=== PATIENT | female | born 1970 | race Caucasian/White ===

== ENCOUNTER 2016-09-30 13:26 | Emergency (ER) | payer MEDICARE, OTHER ==
[~2016-09-30] VITALS: Ht 160 cm; Wt 67.5 kg
[~2016-09-30 13:26] MED LIST: AMLO-145 PO; CARV25TA97 PO; CNC30T PO; FOSR500 PO; ISOS30TA5 PO; LORA0.5T PO; LOSA50TA6 PO; MUPI22OI29 TOP; PANT40TA4 PO; SEVE800T7 PO
[2016-09-30 13:46] VITALS: Ht 160 cm; Wt 67.5 kg
[2016-09-30] MEDS ORDERED: DIAZEPAM 5 MG TAB PO ONE (15:00)
--- NOTE | 2016-09-30 15:32 | RADRPT ---
PROCEDURE: Renal US. CLINICAL INDICATION: Renal dysfunction. Patient on hemodialysis. Flank pain. TECHNIQUE: Multiple sonographic images of the kidneys and urinary bladder were obtained. The imag es were reviewed on a PACS workstation. COMPARISON: No prior studies are available for comparison. FINDINGS: The right kidney measures 6.2 cm. The left kidney measures 7.8 cm. There is a multiloculated cystic lesion in the right kidney inferiorly measuring 2.0 x 2.2 x 3.1 cm, and a cystic lesion inferiorly in the left kidney measuring 1.2 x 0.9 x 1.4 cm. There is no other renal mass. There is no hydronephrosis. There is no renal calculus. Both kidneys are hyperechoic consistent with medical renal disease. There is bilateral renal atroph y with thinning of the renal parenchyma. The perirenal regions are normal with no fluid collection or mass. The urinary bladder is unremarkable. IMPRESSION: 1. Bilateral small hyperechoic kidneys consistent with medical renal disease. 2. Benign bilateral renal cysts. 3. No hydronephrosis. 4. Otherwise normal renal ultrasound. RPTAT: QQ .Manoj Otoole MD, MD Date Time Electronically viewed and signed by .Manoj Otoole MD, MD on 09/30/2016 15:32 .R/
--- NOTE | 2016-09-30 15:49 | RADRPT ---
PROCEDURE: XR Lumbar Spine. CLINICAL INDICATION: Back pain. TECHNIQUE: Five views. AP, lateral, obliques, and cone-down lateral view of the lumbar spine were obtained. COMPARISON: No prior studies are available for comparison. FINDINGS: There is normal stature and alignment of the vertebrae. There is no fracture. There is no lytic or blastic lesion. The disk height is normal. There is no spondylolysis. There is a surgical clip in the left upper quadrant of the abdomen. IMPRESSION: 1. Prior left upper quadrant abdomen surgery. 2. Otherwise unremarkable images of the lumbar spine. RPTAT: QQ .Manoj Otoole MD, MD Date Time Electronically viewed and signed by .Manoj Otoole MD, MD on 09/30/2016 15:49 .R/
[2016-09-30] MEDS ORDERED: CYCL-319 PO (15:58)
--- NOTE | 2016-09-30 16:10 | ERD ---
ER Documentation Chief Complaint Date/Time DATE: 09/30/16 TIME: 16:06 Chief Complaint Pt with lower back pain X 2 weeks, worse today. Pt on HD HPI This is a 46-year-old female with past medical history of lupus, hypertension on hemodialysis on Wednesday, Wednesday, Wednesday presenting to the emergency department complaining with moderate to severe lower back pain for the past 2 weeks. Patient states that she has been evaluated by her primary care physician at [facility], who has done x-rays and show that she had arthritis. Patient presents today asking for another x-ray since she says that back pain has worsened and she wants a second opinion. Patient has been given [place], Vicodin Motrin and she states that none of them helped her. Patient states the pain is increased when she is sitting down. Patient's last hemodialysis appointment was today and she states the doctor said it was everything was normal. Denies any saddle anesthesia or bowel incontinence (patient already does not produce urine) ROS All systems reviewed and are negative except as per history of present illness. 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 with wo, #1 TUB Prov:WHITNEY CARDOSO MD 03/15/16 Carvedilol* (Coreg*) 25 Mg Tab, 25 MG PO BID for 30 Days, TAB Prov:REMI SIMPSON MD 12/26/15 Reported Medications Isosorbide Mononitrate* (Isosorbide Mononitrate*) 30 Mg Tab.er.24h, 30 MG PO DAILY, TAB 03/11/16 Sevelamer Carbonate* (Renvela*) 800 Mg Tablet, 0.8 GM PO WITH MEALS, TAB 02/05/16 Pantoprazole* (Pantoprazole*) 40 Mg Tablet.dr, 40 MG PO DAILY, TAB 12/22/15 Lorazepam* (Lorazepam*) 0.5 Mg Tablet, 0.5 MG PO Q8 Y for ANXIETY, TAB 12/17/15 Lanthanum Carbonate* (Fosrenol*) 500 Mg Tab.chew, 500 MG PO TID, TAB.CHEW WITH MEALS 01/11/15 Amlodipine Besylate* (Amlodipine Besylate*) 5 Mg Tablet, 5 MG PO BID, TAB 01/11/15 Cinacalcet* (Sensipar*) 30 Mg Tab, 30 MG PO DAILY, TAB 01/11/15 Losartan Potassium* (Losartan Potassium*) 50 Mg Tablet, 50 MG PO DAILY, TAB 09/26/14 Allergies Allergies: Coded Allergies: valacyclovir (Verified Allergy, Mild, 04/27/16) per pt she has nightmares and hallucinations PMhx/Soc Anesthesia Reaction: No Hx Neurological Disorder: No Hx Respiratory Disorders: No Hx Cardiac Disorders: Yes (HTN) Hx Psychiatric Problems: No Hx Miscellaneous Medical Probl: Yes (lupus, esrd wiwth dialysis (MWF)) Hx Alcohol Use: No Hx Substance Use: No Hx Tobacco Use: No Smoking Status: Never smoker Physical Exam Vitals Vital Signs Date Time Temp Pulse Resp B/P Pulse Ox O2 Delivery O2 Flow Rate FiO2 09/30/16 13:46 97.4 94 18 132/88 100 Physical Exam GENERAL: WD/WN, in no apparent distress, non-toxic appearing HENT: NC/AT EYES: Conjunctiva normal NECK: Supple PULM: Normal labored breathing CV: Good capillary refill GI: Non-distended, no guarding BACK: no deformities noted, normal spinal curvature, TTP on lumbar region, non- tender on spine midline EXT: No clubbing, cyanosis, or edema NEURO: Moves on all fours, sensation intact, normal gait SKIN: intact PSYCH: Normal mood Results 24 hrs Current Medications Medications (Trade) Dose Ordered Sig/Halie Route PRN Reason Start Time Stop Time Status Last Admin Dose Admin Diazepam (Valium) 10 mg ONCE ONCE PO 09/30/16 15:00 09/30/16 15:01 DC 09/30/16 14:53 Procedures/MDM This is a 46-year-old female with past medical history of lupus, hypertension on hemodialysis on Wednesday, Wednesday, Wednesday presenting to the emergency department complaining with worsening moderate to severe lower back pain for the past 2 weeks. Patient states that she has been evaluated by her primary care physician at [facility], who has done x-rays and show that she had arthritis. Patient presents today asking for another x-ray since she says that back pain has worsened and she wants a second opinion. Patient's last hemodialysis appointment was today and she states the doctor said it was everything was normal. This is likely a lumbar back strain with muscle spasm, low suspicion for spinal abscess, vertebral fracture, cauda equina syndrome, spinal stenosis due to physical examination. Lumbar XRAY: 1. Prior left upper quadrant abdomen surgery. 2. Otherwise unremarkable images of the lumbar spine. Renal US: 1. Bilateral small hyperechoic kidneys consistent with medical renal disease. 2. Benign bilateral renal cysts. 3. No hydronephrosis. 4. Otherwise normal renal ultrasound. Patient is neurovascularly intact. Prescriptions Flexeril was given to patient, discussed to return to the ED if not improving as expected or follow-up with a primary care physician. Patient understood and agreed with this plan. Departure Diagnosis: Primary Impression: Back pain Condition: Stable Patient Instructions: Causes of Lumbar (Low Back) Pain, Back Pain (Acute Or Chronic), Muscle Spasm Additional Instructions: FOLLOW UP WITH YOUR PRIMARY CARE PHYSICIAN TOMORROW.Return to this facility if you are not improving as expected. Take all medicines as directed. Return to this facility if you are not improving as expected. SPECIALIST: YOU HAVE A MEDICAL CONDITION WHICH REQUIRES YOU TO SEE A SPECIALIST WITHIN THE NEXT 1-2 DAYS. PLEASE FOLLOW UP WITH YOUR PRIMARY PHYSICIAN FOR REFFERAL.IF YOU DO NOT HAVE A PRIMARY CARE PHYSICIAN AND/OR YOU CAN NOT AFFORD TO SEE A PHYSICIAN THE FOLLOWING RESOURCES HAVE BEEN SUPPLIED TO YOU. IT IS YOUR RESPONSIBILITY TO BE SEEN BY THE SPECIALIST MARS CARTER PA-C Sep 30, 2016 16:10
== END 2016-09-30 16:06 | disposition home or self-care (01) ==
LOC: FTE 13:26
DX: M54.5 Low back pain (principal); I10 Essential (primary) hypertension
CPT/HCPCS: 72110; 76775

== ENCOUNTER 2016-10-06 15:03 | Observation (INO) | payer OTHER, MEDICARE ==
[~2016-10-06] VITALS: Ht 162.6 cm; Wt 70.0 kg
[~2016-10-06 15:03] MED LIST changes: +CYCL-319 PO
[2016-10-06 17:58] VITALS: TEMP 98.6
[2016-10-06] MEDS ORDERED: morphine 4 MG/ML VIAL IV STA (18:06)
[2016-10-06] MEDS ORDERED: ONDANSETRON 4 MG INJ IV STA (18:06)
[2016-10-06] MEDS ORDERED: FOLI-49 PO (18:09)
[2016-10-06] MEDS ORDERED: DOCU100C26 PO (18:09)
[2016-10-06] MEDS ORDERED: HYDR-3672 PO (18:09)
[2016-10-06] MEDS ORDERED: HYDR-842 PO (18:10)
[2016-10-06] MEDS ORDERED: BEN50 PO (18:11)
--- NOTE | 2016-10-06 18:11 | ERD ---
ER Documentation Chief Complaint Date/Time DATE: 10/06/16 TIME: 17:55 Chief Complaint hypertension and headache HPI 45-year-old female with a history of SLE, hypertension, end-stage renal disease on dialysis M/W/F, ischemic cardiomyopathy with ejection fraction 25%, status post AICD placement, poorly controlled hypertension, dyslipidemia and coronary artery disease referred to the ED for hypertension. Over the last several days despite compliance with the medication her blood pressure has been significantly elevated at home. She complains of mild, generalized, gradual onset headache but denies chest pain, palpitations or shortness of breath. No abdominal pain, nausea or vomiting. Denies leg pain or swelling. No URI symptoms or cough. No fevers or chills. Ongoing, nonradiating, mild to moderate, diffuse, sharp and crampy lower back pain for which she was evaluated in the ED September 30. On that day her blood pressure was 132/88. ROS All systems reviewed and are negative except as per history of present illness. 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 with wo, #1 TUB Prov:WHITNEY CARDOSO MD 03/15/16 Carvedilol* (Coreg*) 25 Mg Tab, 25 MG PO BID for 30 Days, TAB Prov:REMI SIMPSON MD 12/26/15 Reported Medications Sevelamer Carbonate* (Renvela*) 800 Mg Tablet, 0.8 GM PO WITH MEALS, TAB 2 TABS TID WITH MEALS 10/07/16 Amlodipine Besylate* (Norvasc*) 5 Mg Tablet, 5 MG PO BID, TAB 10/06/16 Cinacalcet* (Sensipar*) 60 Mg Tablet, 60 MG PO DAILY, TAB 10/06/16 Diphenhydramine Hcl* (Benadryl*) 50 Mg Cap, 50 MG PO Q12 Y for ITCHING, CAP 10/06/16 Docusate Sodium* (Doc-Q-Lace*) 100 Mg Capsule, 100 MG PO BID Y for CONSTIPATION , CAP 10/06/16 Folic Acid* (Folic Acid*) 1 Mg Tablet, 1 MG PO DAILY, TAB 10/06/16 Hydralazine Hcl* (Apresoline*) 50 Mg Tab, 50 MG PO DAILY, #30 TAB 10/06/16 Pantoprazole* (Pantoprazole*) 40 Mg Tablet.dr, 40 MG PO DAILY, TAB 12/22/15 Lanthanum Carbonate* (Fosrenol*) 500 Mg Tab.chew, 500 MG PO TID, TAB.CHEW WITH MEALS 01/11/15 Losartan Potassium* (Losartan Potassium*) 50 Mg Tablet, 50 MG PO DAILY, TAB 09/26/14 Discontinued Reported Medications Hydroxyzine Hcl* (Atarax*) 25 Mg Tab, 25 MG PO DAILY Y for ITCHING, TAB 10/06/16 Isosorbide Mononitrate* (Isosorbide Mononitrate*) 30 Mg Tab.er.24h, 30 MG PO DAILY, TAB 03/11/16 Lorazepam* (Lorazepam*) 0.5 Mg Tablet, 0.5 MG PO Q8 Y for ANXIETY, TAB 12/17/15 Amlodipine Besylate* (Amlodipine Besylate*) 5 Mg Tablet, 5 MG PO BID, TAB 01/11/15 Cinacalcet* (Sensipar*) 30 Mg Tab, 30 MG PO DAILY, TAB 01/11/15 Allergies Allergies: Coded Allergies: valacyclovir (Verified Allergy, Mild, 10/06/16) per pt she has nightmares and hallucinations PMhx/Soc Reviewed in chart. As per HPI. Anesthesia Reaction: No Hx Neurological Disorder: No Hx Respiratory Disorders: No Hx Cardiac Disorders: Yes (HTN) Hx Psychiatric Problems: No Hx Miscellaneous Medical Probl: Yes (lupus, esrd wiwth dialysis (MWF)) Hx Alcohol Use: No Hx Substance Use: No Hx Tobacco Use: No FmHx Mother: Diabetes. No family history of stroke, cancer or sudden cardiac . Physical Exam Vitals Vital Signs Date Time Temp Pulse Resp B/P Pulse Ox O2 Delivery O2 Flow Rate FiO2 10/06/16 17:58 98.6 81 22 205/101 98 Room Air 10/06/16 17:17 232/112 10/06/16 15:23 97.9 82 18 212/110 98 Physical Exam Const: Alert, mild distress due to pain. Head: Atraumatic Eyes: Normal Conjunctiva ENT: Normal External Ears, Nose and Mouth. Neck: Full range of motion. Nontender. No JVD. Resp: Clear to auscultation bilaterally Cardio: Regular rate and rhythm, no murmurs Abd: Soft, non tender, non distended. Normal bowel sounds Skin: No petechiae or rashes Back: Mild, diffuse, lumbar tenderness. No bony point tenderness, step-off or deformity. No paraspinal muscle spasm. Negative straight leg raise/cross leg raise. Dorsiflexion of the great toes normal bilaterally. Ext: No cyanosis, or edema. AV shunt left upper extremity with palpable thrill. Neur: Awake and alert. Cranial nerves II through XII are grossly intact. Motor and sensory are equal bilaterally. No focal deficit observed. Psych: Normal Mood and Affect Result Diagram: 10/06/16182910/06/161829 Results 24 hrs Laboratory Tests Test 10/06/16 18:30 Anion Gap 23 Basophils # Pending Basophils % Pending Blood Morphology Comment Blood Urea Nitrogen 85mg/dl Calcium Level 9.7mg/dl Carbon Dioxide Level 28mmol/L Chloride Level 94mmol/L Creatinine 11.22mg/dl Eosinophils # Pending Eosinophils % Pending Glucose Level 107mg/dl Hematocrit 34.6% Hemoglobin 11.6g/dl Lymphocytes # Pending Lymphocytes % Pending Mean Corpuscular Hemoglobin 36.0pg Mean Corpuscular Hemoglobin Concent 33.6g/dl Mean Corpuscular Volume 107.0fl Mean Platelet Volume 9.2fl Monocytes # Pending Monocytes % Pending Neutrophils # Pending Neutrophils % Pending Nucleated Red Blood Cells # Pending Nucleated Red Blood Cells % Pending Platelet Count 29494^3/UL Potassium Level 4.7mmol/L Red Blood Count 3.2410^6/ul Red Cell Distribution Width 14.0% Sodium Level 140mmol/L Troponin I 0.088ng/ml White Blood Count 5.910^3/ul Current Medications Medications (Trade) Dose Ordered Sig/Halie Route PRN Reason Start Time Stop Time Status Last Admin Dose Admin Morphine Sulfate (morphine) 4 mg ONCE STAT IV 10/06/16 18:06 10/06/16 18:07 DC 10/06/16 18:38 Ondansetron HCl (Zofran Inj) 4 mg ONCE STAT IV 10/06/16 18:06 10/06/16 18:07 DC 10/06/16 18:37 Diphenhydramine HCl (Benadryl) 25 mg ONCE ONCE IV 10/06/16 19:30 10/06/16 19:31 RHYTHM STRIP INTERPRETATION: Time: 18:05. Indication: Sinus rhythm. Ventricular rate 80. No ectopy. Indication: Hypertension. EKG: TIME: 17: 55. Sinus rhythm. Ventricular rate 81. LVH. T-wave inversions in lead I and aVL. No acute ST segment elevation or depression. No ectopy. EP Interpretation: Abnormal EKG. IMAGING: [ ] Procedures/MDM DOCUMENTS REVIEWED: ED nurse, prior ED, prior records ED COURSE: Morphine 4 mg/Zofran 4 mg IV. REEXAMINATION/REEVALUATION: Time:BP 196/104. HR:86. Pain resolved but complaining of mild, generalized pruritus. Benadryl 25 mg IV given. Ongoing hypertension treated with labetalol 20 mg IV. MEDICAL DECISION MAKIN-year-old female with a history of SLE, hypertension , end-stage renal disease on dialysis M/W/F, ischemic cardiomyopathy with ejection fraction 25%, status post AICD placement, poorly controlled hypertension, dyslipidemia and coronary artery disease referred to the ED for hypertension. She is having ongoing lower back pain resolved with morphine 4 mg but had some mild pruritus treated with Benadryl. Blood pressure was still 196/104 on labetalol 20 mg IV given. Admit to telemetry. Counseled patient regarding diagnostic workup, diagnosis and need for followup. Understands to return to ED if symptoms recur, worsen or any other concerns. Departure Diagnosis: Primary Impression: Hypertensive urgency Additional Impressions: ESRD (end stage renal disease) on dialysis SLE (systemic lupus erythematosus) Systemic lupus erythematosus type: unspecified Systemic lupus erythematosus organ involvement: unspecified Qualified Code: M32.9 - Systemic lupus erythematosus, unspecified SLE type, unspecified organ involvement status Condition: Serious MORTEZA JUDGE MD Oct 06, 2016 18:11
--- NOTE | 2016-10-06 18:23 | RADRPT ---
PROCEDURE: XR Chest. CLINICAL INDICATION: Hypertension. Shortness of breath. TECHNIQUE: Single frontal view. COMPARISON: 04/27/2016. FINDINGS: The lungs are clear. There is a right-sided single lead pacemaker/internal cardiac defibrillator. The heart is enlarged. There is no pleural effusion or pneumothorax. Surgical clips are present in the soft tissues of the left upper extremity medially. IMPRESSION: 1. Pacemaker/internal cardiac defibrillator. 2. Cardiomegaly. 3. Clear lungs. 4. Surgical clips in the left upper extremity soft tissues medially. RPTAT: QQ .Manoj Otoole MD, MD Date Time Electronically viewed and signed by .Manoj Otoole MD, on 10/06/2016 18:23 .R/
[2016-10-06 18:37] LABS: BASOPHIL # 0.1 10^3/ul (0.0-0.1); BASOPHILS % 0.9 % (0.0-2.0); EOSINOPHILS # 0.2 10^3/ul (0.0-0.5); EOSINOPHILS % 3.2 % (0.0-7.0); HEMATOCRIT 34.6 % (37.0-47.0); HEMOGLOBIN 11.6 g/dl (12.0-16.0); LYMPHOCYTES # 1.7 10^3/ul (0.8-2.9); LYMPHOCYTES % 28.9 % (15.0-51.0); MEAN CORPUSCULAR HGB CONC 33.6 g/dl (32.0-37.0); MEAN PLATELET VOLUME 9.2 fl (7.4-10.4); MONOCYTE # 0.8 10^3/ul (0.3-0.9); MONOCYTES % 13.4 % (0.0-11.0); NEUTROPHIL # 3.2 10^3/ul (1.6-7.5); NEUTROPHILS % 53.6 % (39.0-77.0); PLATELET COUNT 172 10^3/UL (140-440); RED BLOOD COUNT 3.24 10^6/ul (4.20-5.40); UNCORRECTED WBC 5.9 10^3/ul (4.8-10.8); WHITE BLOOD COUNT 5.9 10^3/ul (4.8-10.8)
[2016-10-06 18:41] LABS: CONDITION 1; LH ANALYZER COMMENTS 1; SUSPECT 1
[2016-10-06 18:46] LABS: POTASSIUM 4.7 mmol/L (3.5-5.1)
[2016-10-06 18:48] LABS: CREATININE 11.22 mg/dl (0.44-1.00)
[2016-10-06 18:49] LABS: CALCIUM 9.7 mg/dl (8.4-10.2)
[2016-10-06 19:01] LABS: TROPONIN-I 0.088 ng/ml (0.00-0.12)
[2016-10-06] MEDS ORDERED: DIPHENHYDRAMINE 50 MG INJ IV ONE (19:30)
[2016-10-06] MEDS ORDERED: LABETALOL HCL 20MG INJ IV ONE (19:30)
[2016-10-06] MEDS ORDERED: NITROGLYCERIN 2% 1 GM OINT PKT TD STA (20:11)
[2016-10-06] MEDS ORDERED: ONDANSETRON 4 MG INJ IV PRN ×2 (20:30→23:00)
[2016-10-06] MEDS ORDERED: ACETAMINOPHEN 325 MG TAB PO PRN ×2 (20:30→23:00)
[2016-10-06] MEDS ORDERED: CLONIDINE 0.2 MG/24 HR PATCH TRANSDERM ONE (20:30)
[2016-10-06] MEDS ORDERED: CINA60TA PO (20:32)
[2016-10-06] MEDS ORDERED: AMLO5TAB4 PO (20:34)
[2016-10-06] MEDS ORDERED: DIPHENHYDRAMINE 50 MG CAP PO PRN (23:00)
[2016-10-06] MEDS ORDERED: BISACODYL (EC) 5 MG TAB PO PRN (23:00)
[2016-10-06] MEDS ORDERED: NACL 0.9% 3 ML SYG IV SCH (23:00)
[2016-10-06] MEDS ORDERED: DOCUSATE SODIUM 100 MG CAP PO PRN ×2 (23:00)
[2016-10-06] MEDS ORDERED: hydrALAzine 20 MG INJ IV PRN (23:00)
[2016-10-06 23:09] VITALS: PULSE 81
[2016-10-06 23:31] VITALS: BP 162/86; RESP 16
[2016-10-06 23:45] VITALS: Ht 162.6 cm; Wt 70.0 kg
[2016-10-07] VITALS (19 sets, daily range): BP systolic 140–181; BP diastolic 73–98; PULSE 69–96; RESP 16–20
[2016-10-07] MEDS: PANTOPRAZOLE 40 MG INJ IV SCH (06:24)
[2016-10-07] MEDS ORDERED: SEVELAMER CARBONATE 0.8 GM PKT PO SCH (07:55)
[2016-10-07] MEDS ORDERED: SEVE800T7 PO (08:05)
[2016-10-07 08:17] LABS: BASOPHILS % 0.2 % (0.0-2.0); EOSINOPHILS # 0.2 10^3/ul (0.0-0.5); HEMATOCRIT 31.7 % (37.0-47.0); HEMOGLOBIN 10.6 g/dl (12.0-16.0); LYMPHOCYTES # 1.7 10^3/ul (0.8-2.9); MEAN CORPUSCULAR HGB CONC 33.4 g/dl (32.0-37.0); MEAN PLATELET VOLUME 9.5 fl (7.4-10.4); MONOCYTE # 0.7 10^3/ul (0.3-0.9); MONOCYTES % 13.9 % (0.0-11.0); NEUTROPHIL # 2.7 10^3/ul (1.6-7.5); NEUTROPHILS % 50.9 % (39.0-77.0); PLATELET COUNT 155 10^3/UL (140-440); RED BLOOD COUNT 2.93 10^6/ul (4.20-5.40); UNCORRECTED WBC 5.4 10^3/ul (4.8-10.8); WHITE BLOOD COUNT 5.4 10^3/ul (4.8-10.8)
[2016-10-07 08:19] LABS: POTASSIUM 5.4 mmol/L (3.5-5.1)
[2016-10-07 08:21] LABS: CREATININE 11.82 mg/dl (0.44-1.00)
[2016-10-07 08:22] LABS: CALCIUM 9.1 mg/dl (8.4-10.2)
[2016-10-07] MEDS: CINACALCET 30 MG TAB PO SCH (08:23)
[2016-10-07] MEDS: LANTHANUM 500 MG CHEW PO SCH ×3 (08:23→20:47)
[2016-10-07] MEDS: FOLIC ACID 1 MG TAB PO SCH (08:24)
[2016-10-07 08:44] LABS: CONDITION 1; LH ANALYZER COMMENTS 1
[2016-10-07] MEDS ORDERED: LOSARTAN 50 MG TAB PO SCH (09:00)
[2016-10-07] MEDS ORDERED: PANTOPRAZOLE (EC) 40 MG TAB PO SCH (09:00)
[2016-10-07] MEDS: AMLODIPINE 5 MG TAB PO SCH ×2 (11:03→20:45)
[2016-10-07] MEDS ORDERED: SEVELAMER 800 MG TAB PO SCH (11:50)
[2016-10-07] MEDS: DIPHENHYDRAMINE 50 MG INJ IV PRN ×2 (12:07→20:47)
[2016-10-07] MEDS: SEVELAMER 800 MG TAB PO SCH ×2 (12:15→17:57)
--- NOTE | 2016-10-07 12:40 | QN ---
Documentation Comment [id number] REMI SIMPSON MD Oct 07, 2016 12:40
--- NOTE | 2016-10-07 14:19 | HP ---
DATE OF ADMISSION: 10/06/2016 HISTORY OF PRESENT ILLNESS: Iveth Dang is a 46-year-old female with history of ESRD, hypertension , and a history of congestive heart failure, systolic, history of AICD device placement, history of cellulitis, history of noncompliance. The patient also has a history of lupus and goes to [facility], hist ory of arthritis, DJD, cardiomyopathy, history of dyslipidemia, CAD, history of multiple hospitaliza tions due to congestive heart failure. ALLERGIES: LISTED MULTAQ. SOCIAL HISTORY: Negative. FAMILY HISTORY: Negative. MEDICATION HISTORY: The patient is on: 1. Amlodipine. 2. Coreg. 3. Sensipar. 4. Cyclobenzaprine. 5. Diphenhydramine. 6. Docusate sodium. 7. Folic acid. 8. Hydralazine. 9. Lanthanum carbonate. 10. Losartan. 11. . 12. Protonix. 13. Renvela. REVIEW OF SYSTEMS: HEENT: Unremarkable. RESPIRATORY: Short of breath. CARDIOVASCULAR: No chest pain or pressure. ABDOMEN: Dyspepsia. EXTREMITIES: No swelling. CENTRAL NERVOUS SYSTEM: Unremarkable. PHYSICAL EXAMINATION: GENERAL: The patient is awake and alert. VITAL SIGNS: Pulse 74, blood pressure 118/91. HEAD: Atraumatic, normocephalic. Pupils are equal and reactive to light. NECK: Supple. No JVD. LUNGS: Clear with few rhonchi at the bases. CARDIOVASCULAR: S1, S2 normal. Systolic murmur soft at the apex noted. ABDOMEN: Soft, bowel sounds present, no palpable mass or hepatosplenomegaly. SYSTEM: No guarding, rebound tenderness. EXTREMITIES: There is no cyanosis, clubbing. Edema trace. CENTRAL NERVOUS SYSTEM: The patient is awake, alert, no focal deficit. LABORATORY DATA: Hematocrit 31.7, platelet count of 155. Sodium 130, potassium 5.4, BUN 80, creati nine of 11.82. IMPRESSION: The patient has: 1. Malignant hypertension, uncontrolled. 2. End-stage renal disease. 3. History of systolic heart failure. 4. Dyslipidemia. 5. Noncompliance. 6. Anxiety. 7. History of lupus. 8. Anemia. PLAN: Give this patient a renal diet, blood pressure control, cardiology consultation. Will give h er medications and continue them. Orders were done. Dictated By: REMI EDEN/LUAN Conf#: [id number] DID#: [id number]
--- NOTE | 2016-10-07 14:46 | CONS ---
DATE OF ADMISSION: 10/06/2016 DATE OF CONSULTATION: 10/07/2016 TYPE OF CONSULTATION: Cardiology. REFERRING PHYSICIAN: Jensen Wilkerson MD REASON FOR EVALUATION: Hypertensive urgency. HISTORY OF PRESENT ILLNESS: Ms. Dang is a pleasant 46-year-old woman known to me from multiple off ice visits who has a history of hypertension, cardiomyopathy. She had a recent ICD placement, histo ry of recurrent hyperkalemia and fluid overload who comes to the hospital now for evaluation of acce lerated hypertension. The patient is receiving hemodialysis now, which lowered her blood pressure s omewhat. I have been asked to see the patient by Dr. Wilkerson in order to facilitate hypertension thera py. The patient is fairly comfortable now. We will resume her home medications. I think the patie nt's blood pressure will come down with hemodialysis. We will add additional agent as indicated. PAST MEDICAL HISTORY: 1. Hypertension. 2. Dyslipidemia. 3. Coronary artery disease. 4. History of cardiomyopathy with EF of 25%, history of recent ICD placement, end-stage renal dialy sis. ALLERGIES: NO KNOWN DRUG ALLERGIES. SOCIAL HISTORY: The patient does not smoke, does not drink, does not use any drugs. FAMILY HISTORY: Negative for sudden cardiac or premature coronary artery disease. MEDICATIONS: The patient is on: 1. Renagel 1.6 p.o. t.i.d. 2. Amlodipine 5 mg p.o. b.i.d. 3. Coreg 25 mg p.o. b.i.d. 4. Folic acid. 5. ____. 6. Pantoprazole. 7. Docusate. 8. Bisacodyl. 9. Hydralazine 10 mg p.o. once a day. REVIEW OF SYSTEMS: CONSTITUTIONAL: No fevers, no chills, no shortness of breath. HEENT: No changes in vision or hearing. CARDIAC: No chest pain reported now. RESPIRATORY: No shortness of breath. GASTROINTESTINAL: No nausea, vomiting, diarrhea, constipation. GENITOURINARY: No dysuria, hematuria. NEUROLOGIC: No focal deficits. HEMATOLOGIC: History of anemia ____ disease. PSYCHIATRIC: History of anxiety. PHYSICAL EXAMINATION: VITAL SIGNS: Temperature is 97.5, heart rate 71, blood pressure 181/98 now, but coming down with di alysis. HEAD: Normocephalic, atraumatic. Eyes anicteric. NECK: Supple. JVD 6-7 cm. There is no lymphadenopathy, no thyromegaly. HEART: Regular with soft holosystolic murmur. ____PMI is nondisplaced. There is no S3. LUNGS: Coarse at bases. ABDOMEN: Distended, bowel sounds are present. There is no hepatosplenomegaly. GENITOURINARY: Exam is intact. EXTREMITIES: No clubbing, cyanosis or edema. SKIN: ____. NEUROLOGICAL: She is able to move her extremities. LABORATORY DATA: White blood cell count is 5.4, hemoglobin is 10.6, platelets 155. INR is 0.8. Lo w sodium 138, potassium 5.4, BUN is 89, creatinine 1.8. ASSESSMENT AND PLAN: 1. Hypertension. The patient has hypertensive urgency in the setting of possible noncompliance wit h hemodialysis. We will continue to dialyze for now. Will resume home medicines and follow expectan tly. 2. Cardiomyopathy. The patient has cardiomyopathy, EF 25%. The patient is a recent ICD appears to be with good function per office checks. 3. Congestive heart failure. The patient with gross fluid overload. Continue to remove fluid with dialysis. 4. End-stage renal disease. Continue to follow with Dr. Wilkerson. 5. History of medical noncompliance. The patient encouraged to comply with therapy. 6. History of lupus. We will defer to primary team for evaluation. I would like to thank Dr. Wilkerson for referring this patient for my evaluation. Dictated By: KEITH THOMAS MD ML/NTS Conf#: [id number] DID#: [id number]
[2016-10-07] MEDS: LOSARTAN 50 MG TAB PO SCH (20:45)
[2016-10-07] MEDS ORDERED: LORAZEPAM 0.5 MG TAB PO PRN (23:30)
[2016-10-08 00:08] VITALS: PULSE 75
[2016-10-08 00:50] VITALS: BP 140/76; RESP 19
[2016-10-08 04:00] VITALS: BP 124/72; RESP 18
[2016-10-08 04:19] VITALS: PULSE 74
[2016-10-08] MEDS: PANTOPRAZOLE 40 MG INJ IV SCH (05:49)
[2016-10-08 07:24] LABS: POTASSIUM 5.3 mmol/L (3.5-5.1)
[2016-10-08 07:26] LABS: CREATININE 9.43 mg/dl (0.44-1.00)
[2016-10-08 07:27] LABS: CALCIUM 9.8 mg/dl (8.4-10.2)
[2016-10-08] MEDS: SEVELAMER 800 MG TAB PO SCH (07:55)
[2016-10-08] MEDS ORDERED: NA POLYST SULFON 15 GM/60 ML BTL PO ONE (08:00)
[2016-10-08] MEDS: LANTHANUM 500 MG CHEW PO SCH (08:08)
[2016-10-08] MEDS: AMLODIPINE 5 MG TAB PO SCH (08:09)
[2016-10-08] MEDS: FOLIC ACID 1 MG TAB PO SCH (08:09)
[2016-10-08] MEDS: CINACALCET 30 MG TAB PO SCH (08:09)
[2016-10-08] MEDS: LOSARTAN 50 MG TAB PO SCH (08:13)
--- NOTE | 2016-10-08 08:52 | CONS ---
Date/Time of Note Date/Time of Note DATE: 10/08/16 TIME: 08:49 Assessment/Plan Assessment/Plan Additional Assessment/Plan 1. Hypertension. The patient has hypertensive urgency in the setting of possible noncompliance with hemodialysis. We will continue to dialyze for now. Will resume home medicines and follow expectantly. BETTER now - Rx dose increased per Dr. Wilkerson. 2. Cardiomyopathy. The patient has cardiomyopathy, EF 25%. The patient is a recent ICD appears to be with good function per office checks. Site looks well. 3. Congestive heart failure. The patient with gross fluid overload. Continue to remove fluid with dialysis. BETTER after HD. 4. End-stage renal disease. Continue to follow with Dr. Wilkerson. 5. History of medical noncompliance. The patient encouraged to comply with therapy. Encourage compliance. 6. History of lupus. We will defer to primary team for evaluation. Consultation Date/Type/Reason Admit Date/Time Oct 06, 2016 at 20:13 Initial Consult Date 24 HR Interval Summary Free Text/Dictation Pt much better after HD - Meds adjusted - DR. Wilkerson increased BP med RX dose. ROS: No fever, no chills, no nausea, no vomiting, no diarrhea/constipation No recent weight changes No chest pain, no PND, no orthopnea No dizziness, blurred vision No thirst, no heat or cold intolerance Exam/Review of Systems Vital Signs Vitals Vital Signs Date Time Temp Pulse Resp B/P Pulse Ox O2 Delivery O2 Flow Rate FiO2 10/08/16 04:19 74 10/08/16 04:00 98.2 18 124/72 95 10/06/16 22:40 Room Air Intake and Output 10/07/16 10/07/16 10/08/16 15:00 23:00 07:00 Intake Total 1220 ml 300 ml Output Total 3500 ml Balance -2280 ml 300 ml Exam General: WN/WD/NAD, AOx 3 HEENT: Unicetric/atraumatic/EOMI (follow commands) NECK: JVD elevated, no thyromegaly Lymph: no lymphadenopathy HEART: regular with no S3, II/ systolic murmur at apex LUNGS: Coarse sounds ABD: soft, NT, ND, +BS : Intact Neuro: non focal SKIN: chronic changes EXT: trace edema Results Result Diagram: 10/07/16 0705 10/08/16 0535 Results 24 hrs Laboratory Tests Test 10/08/16 05:35 Anion Gap 22 H Blood Urea Nitrogen 53 #H Calcium Level 9.8 Carbon Dioxide Level 27 Chloride Level 96 L Creatinine 9.43 #H Glucose Level 74 Potassium Level 5.3 H Sodium Level 140 Medications Medications Current Medications Amlodipine Besylate (Norvasc) 5 mg BID PO Last administered on 10/08/16 08:09 ; Admin Dose 5 MG; Start 10/07/16 at 09:00 Carvedilol (Coreg) 25 mg BID PO Last administered on 10/08/16 08:10; Admin Dose 25 MG; Start 10/07/16 at 09:00 Cinacalcet (Sensipar) 60 mg DAILY PO Last administered on 10/08/16 08:09; Admin Dose 60 MG; Start 10/07/16 at 09:00 Docusate Sodium (Colace) 100 mg BID PRN PO CONSTIPATION; Start 10/06/16 at 23: 00 Folic Acid (Folic Acid) 1 mg DAILY PO Last administered on 10/08/16 08:09; Admin Dose 1 MG; Start 10/07/16 at 09:00 Lanthanum Carbonate (Fosrenol) 500 mg TID PO Last administered on 10/08/16 08: 08; Admin Dose 500 MG; Start 10/07/16 at 09:00 Ondansetron HCl (Zofran Inj) 4 mg Q6H PRN IV NAUSEA AND/OR VOMITING Last administered on 10/07/16 19:43; Admin Dose 4 MG; Start 10/06/16 at 23:00 Acetaminophen (Tylenol Tab) 650 mg Q6H PRN PO PAIN LEVEL 1-3 OR FEVER; Start at 23:00 Bisacodyl (Dulcolax) 5 mg DAILY PRN PO CONSTIPATION; Start 10/06/16 at 23:00 Pantoprazole (Protonix Iv) 40 mg DAILY@06 IV Last administered on 10/08/16 05: 49; Admin Dose 40 MG; Start 10/07/16 at 06:00 Hydralazine HCl (Apresoline) 10 mg Q6H PRN IV for sbp>170; Start 10/06/16 at 23 :00 Diphenhydramine HCl (Benadryl) 50 mg Q8 PRN IV ITCHING Last administered on 20:47; Admin Dose 50 MG; Start 10/07/16 at 12:00 Hydralazine HCl (Apresoline) 100 mg TID PO Last administered on 10/07/16 20:43 ; Admin Dose 100 MG; Start 10/07/16 at 13:00 Losartan Potassium (Cozaar) 50 mg BID PO Last administered on 10/07/16 20:45; Admin Dose 50 MG; Start 10/07/16 at 21:00 Lorazepam (Ativan) 0.5 mg Q8H PRN PO ANXIETY Last administered on 10/07/16 23: 22; Admin Dose 0.5 MG; Start 10/07/16 at 23:30 KEITH THOMAS MD Oct 08, 2016 08:52
--- NOTE | 2016-10-09 16:17 | QN ---
Documentation Comment [id number] REMI SIMPSON MD Oct 09, 2016 16:17
--- NOTE | 2016-10-10 10:51 | DS ---
DATE OF ADMISSION: 10/06/2016 DATE OF DISCHARGE: 10/08/2016 HOSPITAL COURSE: The patient is a 46-year-old female with history of ESRD, hypertension, CHF, decre ased ejection fraction who was admitted for uncontrolled hypertension being noncompliant with medica tions and diet. She was seen in cardiology consultation by Dr. Poole and the patient underwent hem odialysis. Blood pressure is resolving, but patient decided that she did not want to stay longer and she requested to be discharged. DISCHARGE DIAGNOSES: Include: 1. Uncontrolled hypertension. 2. Noncompliance with diet, medications and instructions. 3. Hypertension. 4. End-stage renal disease. 4. Anemia. 5. Systolic heart failure, decreased ejection fraction. 6. History of automatic implantable cardioverter/defibrillator placement. DISPOSITION: Patient left the hospital without proper instructions, but prescription list medicine was given so patient can resume home medication with adjustments made. DIET: Cardiac and renal diet. Follow up as an outpatient. Dictated By: REMI EDEN/LUAN Conf#: [id number] DID#: [id number]
== END 2016-10-08 09:45 | disposition home or self-care (01) ==
LOC: E/R 15:03 → MS4 20:13 → UNDOADMOB 22:57 → TEL 23:14 → MS4 23:14
PROVIDERS: ADMIT Internal Medicine Nephrology; ATTEND Internal Medicine Nephrology
DX: I13.2 Hypertensive heart and chronic kidney disease with heart failure and with stage 5 chronic kidney disease, or end stage renal disease (principal); N18.6 End stage renal disease; I50.20 Unspecified systolic (congestive) heart failure; Z99.2 Dependence on renal dialysis; I25.5 Ischemic cardiomyopathy; E78.5 Hyperlipidemia, unspecified; M32.9 Systemic lupus erythematosus, unspecified; F41.9 Anxiety disorder, unspecified; D64.9 Anemia, unspecified; M19.90 Unspecified osteoarthritis, unspecified site; Z91.11 Patient's noncompliance with dietary regimen; Z91.14 Patient's other noncompliance with medication regimen; Z95.810 Presence of automatic (implantable) cardiac defibrillator
CPT/HCPCS: 71010; 80048; 84484; 85025; 87081; 90935; 93005; 96374; 96375; 99285; C9113; G0378; J1200; J2270; J2405

== ENCOUNTER 2016-10-18 17:08 | Emergency (ER) | payer MEDICARE, OTHER ==
[~2016-10-18] VITALS: Ht 160 cm; Wt 67.0 kg
[~2016-10-18 17:08] MED LIST changes: -AMLO-145 PO; +AMLO5TAB4 PO; +BEN50 PO; +CINA60TA PO; -CNC30T PO; +DOCU100C26 PO; +FOLI-49 PO; +HYDR-3672 PO; -ISOS30TA5 PO; -LORA0.5T PO
[2016-10-18 17:15] VITALS: Ht 160 cm; Wt 67.0 kg
[2016-10-19] MEDS ORDERED: HYDR-906 PO (15:30)
== END 2016-10-18 22:07 | disposition left against medical advice (07) ==
LOC: E/R 17:08
DX: Z53.21 Procedure and treatment not carried out due to patient leaving prior to being seen by health care provider (principal)

== ENCOUNTER 2016-10-19 11:56 | Emergency (ER) | payer MEDICARE, OTHER ==
[~2016-10-19] VITALS: Wt 64.0 kg
--- NOTE | 2016-10-19 13:34 | ERD ---
ER Documentation Chief Complaint Date/Time DATE: 10/19/16 TIME: 13:32 Chief Complaint GROUND LEVEL FALL YESTERDAY LANDED ON BUTTOCK. LOW BACK PAIN HPI This is a 46-year-old female with a history of hypertension and lupus on dialysis goes Wednesday, Wednesday and Wednesday presenting to the emergency department complaining of buttock pain status post ground-level fall that occurred yesterday. Patient states that she was slipped and fall on her buttock region. She rates the pain 9 out of 10. She states she is able to ambulate. She took [place] yesterday without any relief. She is at the dialysis center today they gave her Tylenol at 9 AM without any relief. ROS All systems reviewed and are negative except as per history of present illness. 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 with wo, #1 TUB Prov:WHITNEY CARDOSO MD 03/15/16 Carvedilol* (Coreg*) 25 Mg Tab, 25 MG PO BID for 30 Days, TAB Prov:REMI SIMPSON MD 12/26/15 Reported Medications Sevelamer Carbonate* (Renvela*) 800 Mg Tablet, 0.8 GM PO WITH MEALS, TAB 2 TABS TID WITH MEALS 10/07/16 Amlodipine Besylate* (Norvasc*) 5 Mg Tablet, 5 MG PO BID, TAB 10/06/16 Cinacalcet* (Sensipar*) 60 Mg Tablet, 60 MG PO DAILY, TAB 10/06/16 Diphenhydramine Hcl* (Benadryl*) 50 Mg Cap, 50 MG PO Q12 Y for ITCHING, CAP 10/06/16 Docusate Sodium* (Doc-Q-Lace*) 100 Mg Capsule, 100 MG PO BID Y for CONSTIPATION , CAP 10/06/16 Folic Acid* (Folic Acid*) 1 Mg Tablet, 1 MG PO DAILY, TAB 10/06/16 Hydralazine Hcl* (Apresoline*) 50 Mg Tab, 50 MG PO DAILY, #30 TAB 10/06/16 Pantoprazole* (Pantoprazole*) 40 Mg Tablet.dr, 40 MG PO DAILY, TAB 12/22/15 Lanthanum Carbonate* (Fosrenol*) 500 Mg Tab.chew, 500 MG PO TID, TAB.CHEW WITH MEALS 01/11/15 Losartan Potassium* (Losartan Potassium*) 50 Mg Tablet, 50 MG PO DAILY, TAB 09/26/14 Allergies Allergies: Coded Allergies: valacyclovir (Verified Allergy, Mild, 10/06/16) per pt she has nightmares and hallucinations PMhx/Soc History of Surgery: Yes (Spleen surgery 15 years ago.) Anesthesia Reaction: No Hx Neurological Disorder: No Hx Respiratory Disorders: No Hx Cardiac Disorders: Yes (HTN, CAD, Ischemic cardiomyopathy, Pacemaker, dyslipidemia) Hx Psychiatric Problems: No Hx Miscellaneous Medical Probl: Yes (Lupus) Hx Alcohol Use: No Hx Substance Use: No Hx Tobacco Use: No Physical Exam Vitals Vital Signs Date Time Temp Pulse Resp B/P Pulse Ox O2 Delivery O2 Flow Rate FiO2 10/19/16 12:14 98.2 93 20 149/84 99 Physical Exam GENERAL: WD/WN, in no apparent distress, non-toxic appearing HENT: NC/AT EYES: Conjunctiva normal NECK: Supple PULM: Normal labored breathing CV: Good capillary refill GI: Non-distended, no guarding BACK: no deformities noted, normal spinal curvature, TTP on lumbar region, tender on coccyx and sacral region EXT: No clubbing, cyanosis, or edema NEURO: Moves on all fours, sensation intact, normal gait SKIN: intact PSYCH: Normal mood Procedures/MDM This is a 46-year-old female with a history of hypertension and lupus on dialysis goes Wednesday, Wednesday and Wednesday presenting to the emergency department complaining of buttock pain status post ground-level fall that occurred yesterday. Patient states that she was slipped and fall on her buttock region. Patient was tender to palpation in the coccyx region. Patient able to ambulate. She is neurovascular intact. In the ED x-ray of the sacrum and coccyx was done and radiologist stated: Patient was given 1 tablet of [place] for pain, a prescription for [place] was given to her. Patient is suitable to follow-up with her primary care physician for follow-up and further evaluation and management. I discussed the patient to return to the ER for any worsening signs or symptoms. She understands and agrees with this plan. MARS CARTER PA-C Oct 19, 2016 13:34
[2016-10-19] MEDS ORDERED: HYDROCODONE/APAP (5/325) TAB PO ONE (14:00)
--- NOTE | 2016-10-19 15:21 | RADRPT ---
PROCEDURE: Sacrum and coccyx. CLINICAL INDICATION: Ground-level fall. TECHNIQUE: AP, oblique, and lateral views of the sacrum and coccyx. COMPARISON: None. FINDINGS: Nondisplaced mildly comminuted fracture deformity at the sacral coccygeal junction likely involving the first coccygeal segment. No other fracture or dislocation. Remaining visualized sacrum and pel vis are unremarkable. IMPRESSION: Minimally displaced fracture at the sacrococcygeal junction . RPTAT:AAJJ Physician Vikas Date Time Electronically viewed and signed by Physician Vikas on 10/19/2016 15:20 KWESI/
[2016-10-19] MEDS ORDERED: HYDR-906 PO (15:30)
[2016-10-19 15:51] VITALS: BP 143/75; PULSE 75; RESP 19; TEMP 98.4
== END 2016-10-19 15:53 | disposition home or self-care (01) ==
LOC: FTE 11:56
DX: S39.92XA Unspecified injury of lower back, initial encounter (principal); I25.10 Atherosclerotic heart disease of native coronary artery without angina pectoris; I12.0 Hypertensive chronic kidney disease with stage 5 chronic kidney disease or end stage renal disease; N18.6 End stage renal disease; W01.0XXA Fall on same level from slipping, tripping and stumbling without subsequent striking against object, initial encounter; Y92.9 Unspecified place or not applicable; Z99.2 Dependence on renal dialysis
CPT/HCPCS: 72220

== ENCOUNTER 2016-10-27 22:11 | Inpatient (IN) | payer OTHER, MEDICARE ==
[~2016-10-27] VITALS: Ht 160 cm; Wt 72.3 kg
[~2016-10-27 22:11] MED LIST changes: +HYDR-906 PO
[2016-10-28] VITALS (20 sets, daily range): BP systolic 111–199; BP diastolic 64–93; PULSE 64–90; RESP 16–18; Ht 160 cm; Wt 72.3 kg
[2016-10-28] MEDS ORDERED: hydrALAzine 20 MG INJ IV ONE ×2 (00:30→03:00)
[2016-10-28 01:19] LABS: BASOPHILS % 0.6 % (0.0-2.0); EOSINOPHILS # 0.1 10^3/ul (0.0-0.5); EOSINOPHILS % 1.7 % (0.0-7.0); HEMATOCRIT 31.9 % (37.0-47.0); HEMOGLOBIN 10.7 g/dl (12.0-16.0); INR 0.9; LYMPHOCYTES # 1.8 10^3/ul (0.8-2.9); LYMPHOCYTES % 25.4 % (15.0-51.0); MEAN CORPUSCULAR HEMOGLOBIN 35.9 pg (29.0-33.0); MEAN CORPUSCULAR HGB CONC 33.7 g/dl (32.0-37.0); MEAN CORPUSCULAR VOLUME 106.4 fl (82.0-101.0); MEAN PLATELET VOLUME 10.2 fl (7.4-10.4); MONOCYTE # 0.6 10^3/ul (0.3-0.9); NEUTROPHIL # 4.7 10^3/ul (1.6-7.5); NEUTROPHILS % 64.3 % (39.0-77.0); PLATELET COUNT 179 10^3/UL (140-440); PROTIME 12.1 Sec (12.2-14.2); PT RATIO 0.9; RED BLOOD COUNT 2.99 10^6/ul (4.20-5.40); RED CELL DISTRIBUTION WIDTH 13.1 % (11.5-14.5); UNCORRECTED WBC 7.3 10^3/ul (4.8-10.8); WHITE BLOOD COUNT 7.3 10^3/ul (4.8-10.8)
[2016-10-28 01:20] LABS: PARTIAL THROMBOPLASTIN TIME 29.2 Sec (25.0-35.0)
[2016-10-28 01:22] LABS: CONDITION 1; LH ANALYZER COMMENTS 1
[2016-10-28] MEDS ORDERED: morphine 4 MG/ML VIAL IV STA (01:25)
[2016-10-28] MEDS ORDERED: ONDANSETRON 4 MG INJ IV STA (01:25)
[2016-10-28 01:30] LABS: POTASSIUM 5.7 mmol/L (3.5-5.1)
[2016-10-28 01:32] LABS: CREATININE 12.87 mg/dl (0.44-1.00)
[2016-10-28 01:33] LABS: ALBUMIN/GLOBULIN RATIO 0.81; CALCIUM 10.1 mg/dl (8.4-10.2); TOTAL PROTEIN 8.9 g/dl (6.1-8.1)
[2016-10-28 01:45] LABS: TROPONIN-I 0.103 ng/ml (0.00-0.12)
[2016-10-28] MEDS ORDERED: DIPHENHYDRAMINE 50 MG INJ IV ONE (03:00)
--- NOTE | 2016-10-28 03:34 | ERA ---
ER Documentation Chief Complaint Date/Time DATE: 10/28/16 TIME: 03:32 Chief Complaint HTN, VANEGAS & SOB STARTING TODAY. DIALYSIS M,W,F. LAST DIALYSIS YESTERDAY (WED) HPI There is a 46 for hypertension had an intravenous was started today. Patient is a Wednesday dialysis patient. Last dialysis was yesterday. Headache is mild to moderate intensity. Nonfocal neurological. No nausea no vomiting no fevers or chills. No other current complaints. ROS All systems reviewed and are negative except as per history of present illness. Medications Home Meds Active Scripts Hydrocodone/Acetaminophen (Austell 5-325 Tablet) 1 Each Tablet, 1 TAB PO Q6H Y for PAIN, #20 TAB Prov:MARS CARTER PA-C 10/19/16 Cyclobenzaprine Hcl* (Cyclobenzaprine Hcl*) 10 Mg Tablet, 10 MG PO TID, #15 TAB Prov:MARS CARTER PA-C 09/30/16 Mupirocin (BACTROBAN 2% OINT) 1 Applic Oint, 1 APPLIC TOP BID for MRSA colonisation skin with wo, #1 TUB Prov:WHITNEY CARDOSO MD 03/15/16 Carvedilol* (Coreg*) 25 Mg Tab, 25 MG PO BID for 30 Days, TAB Prov:REMI SIMPSON MD 12/26/15 Reported Medications Sevelamer Carbonate* (Renvela*) 800 Mg Tablet, 0.8 GM PO WITH MEALS, TAB 2 TABS TID WITH MEALS 10/07/16 Amlodipine Besylate* (Norvasc*) 5 Mg Tablet, 5 MG PO BID, TAB 10/06/16 Cinacalcet* (Sensipar*) 60 Mg Tablet, 60 MG PO DAILY, TAB 10/06/16 Diphenhydramine Hcl* (Benadryl*) 50 Mg Cap, 50 MG PO Q12 Y for ITCHING, CAP 10/06/16 Docusate Sodium* (Doc-Q-Lace*) 100 Mg Capsule, 100 MG PO BID Y for CONSTIPATION , CAP 10/06/16 Folic Acid* (Folic Acid*) 1 Mg Tablet, 1 MG PO DAILY, TAB 10/06/16 Hydralazine Hcl* (Apresoline*) 50 Mg Tab, 50 MG PO DAILY, #30 TAB 1/24/17 Pantoprazole* (Pantoprazole*) 40 Mg Tablet.dr, 40 MG PO DAILY, TAB 12/22/15 Lanthanum Carbonate* (Fosrenol*) 500 Mg Tab.chew, 500 MG PO TID, TAB.CHEW WITH MEALS 01/11/15 Losartan Potassium* (Losartan Potassium*) 50 Mg Tablet, 50 MG PO DAILY, TAB 09/26/14 Allergies Allergies: Coded Allergies: valacyclovir (Verified Allergy, Mild, 10/06/16) per pt she has nightmares and hallucinations PMhx/Soc History of Surgery: Yes (Spleen surgery 15 years ago.) Anesthesia Reaction: No Hx Neurological Disorder: No Hx Respiratory Disorders: No Hx Cardiac Disorders: Yes (HTN, CAD, Ischemic cardiomyopathy, Pacemaker, dyslipidemia) Hx Psychiatric Problems: No Hx Miscellaneous Medical Probl: Yes (Lupus, DIALYSIS MWF) Hx Alcohol Use: No Hx Substance Use: No Hx Tobacco Use: No Smoking Status: Never smoker Physical Exam Vitals Vital Signs Date Time Temp Pulse Resp B/P Pulse Ox O2 Delivery O2 Flow Rate FiO2 10/28/16 01:42 86 19 185/86 97 Room Air 10/27/16 22:42 98.1 74 16 200/99 76 Physical Exam Const: [] Head: Atraumatic Eyes: Normal Conjunctiva ENT: Normal External Ears, Nose and Mouth. Neck: Full range of motion..~ No meningismus. Resp: Clear to auscultation bilaterally Cardio: Regular rate and rhythm, no murmurs Abd: Soft, non tender, non distended. Normal bowel sounds Skin: No petechiae or rashes Back: No midline or flank tenderness Ext: No cyanosis, or edema Neur: Awake and alert Psych: Normal Mood and Affect Result Diagram: 10/28/16 0050 10/28/16 0050 Results 24 hrs Laboratory Tests Test 10/28/16 00:50 Activated Partial Thromboplast Time 29.2Sec Alanine Aminotransferase (ALT/SGPT) 40IU/L Albumin 4.0g/dl Albumin/Globulin Ratio 0.81 Alkaline Phosphatase 217IU/L Anion Gap 26 Aspartate Amino Transf (AST/SGOT) 25IU/L B-Type Natriuretic Peptide 39157GE/ML Basophils # 0.010^3/ul Basophils % 0.6% Blood Morphology Comment Blood Urea Nitrogen 86mg/dl Calcium Level 10.1mg/dl Carbon Dioxide Level 23mmol/L Chloride Level 96mmol/L Creatinine 12.87mg/dl Direct Bilirubin 0.00mg/dl Eosinophils # 0.110^3/ul Eosinophils % 1.7% Globulin 4.90g/dl Glucose Level 92mg/dl Hematocrit 31.9% Hemoglobin 10.7g/dl INR International Normalized Ratio 0.90 Indirect Bilirubin 0.0mg/dl Lymphocytes # 1.810^3/ul Lymphocytes % 25.4% Mean Corpuscular Hemoglobin 35.9pg Mean Corpuscular Hemoglobin Concent 33.7g/dl Mean Corpuscular Volume 106.4fl Mean Platelet Volume 10.2fl Monocytes # 0.610^3/ul Monocytes % 8.0% Neutrophils # 4.710^3/ul Neutrophils % 64.3% Nucleated Red Blood Cells # 0.010^3/ul Nucleated Red Blood Cells % 0.0/100WBC Platelet Count 04080^3/UL Potassium Level 5.7mmol/L Prothrombin Time 12.1Sec Prothrombin Time Ratio 0.9 Red Blood Count 2.9910^6/ul Red Cell Distribution Width 13.1% Sodium Level 139mmol/L Total Bilirubin 0.0mg/dl Total Protein 8.9g/dl Troponin I 0.103ng/ml White Blood Count 7.310^3/ul Current Medications Medications (Trade) Dose Ordered Sig/Halie Route PRN Reason Start Time Stop Time Status Last Admin Dose Admin Hydralazine HCl (Apresoline) 20 mg ONCE ONCE IV 10/28/16 00:30 10/28/16 00:31 DC 10/28/16 01:00 Morphine Sulfate (morphine) 4 mg ONCE STAT IV 10/28/16 01:25 10/28/16 01:27 DC 10/28/16 01:31 Ondansetron HCl (Zofran Inj) 4 mg ONCE STAT IV 10/28/16 01:25 10/28/16 01:27 DC 10/28/16 01:31 Diphenhydramine HCl (Benadryl) 25 mg ONCE ONCE IV 10/28/16 03:00 10/28/16 03:01 DC 10/28/16 03:01 Hydralazine HCl (Apresoline) 20 mg ONCE ONCE IV 10/28/16 03:00 10/28/16 03:01 DC 10/28/16 03:01 Procedures/MDM EKG: Rate/Rhythm: [Normal Sinus Rhythm] QRS, ST, T-waves: [No changes consistent w/ acute ischemia] Impression: [No evidence of ischemia or arrhythmia] Chest X-ray 1V Interpreted by me: Soft Tissue: No acute abnormalities Bones: No acute abnormalities Mediastinum/Cardiac Silhouette/Lungs: Increased interstitial fluid markings. Impression: CHF Patient's heart failure symptoms is concerning for acute decompensation and will require inpatient workup and monitoring. Further w/u for ischemia, arrhythmia, PE or dissection will be deferred to the inpatient team. Accepting Care Team: Current data and ongoing care discussed. Time: Time of admission Primary Provider: Patient will be admitted to Dr. Elliott who is on-call for Dr. Gannon. Dr. Silva, who is on-call for Dr. Simpson asked that I admit the patient to Dr. Gannon service Consulting: [XOXOXO] Outstanding Data: none Departure Diagnosis: Primary Impression: Hypertensive crisis Additional Impression: CHF (congestive heart failure) Qualified Code: I50.9 - Congestive heart failure, unspecified congestive heart failure chronicity, unspecified congestive heart failure type Condition: Serious YULI FONSECA Oct 28, 2016 03:34
[2016-10-28] MEDS ORDERED: ACETAMINOPHEN 325 MG TAB PO PRN (04:30)
--- NOTE | 2016-10-28 04:59 | RADRPT ---
PROCEDURE: XR Chest. CLINICAL INDICATION: Chest pain. TECHNIQUE: AP Portable chest. COMPARISON: 10/06/2016 FINDINGS: There is moderate cardiomegaly. A right chest cardiac device and lead are noted. The lungs are ra ar. The osseous structures are unremarkable. IMPRESSION: No acute findings. RPTAT: HIKT .Luis Denny MD, MD Date Time Electronically viewed and signed by .Luis Denny MD, MD on 10/28/2016 04:59 .T/
[2016-10-28] MEDS ORDERED: DOCUSATE SODIUM 100 MG CAP PO PRN (12:00)
[2016-10-28] MEDS ORDERED: hydrALAzine 20 MG INJ IV PRN (12:00)
[2016-10-28] MEDS ORDERED: DIPHENHYDRAMINE 50 MG CAP PO PRN (12:00)
[2016-10-28] MEDS ORDERED: SEVELAMER CARBONATE 0.8 GM PKT PO SCH (12:30)
[2016-10-28] MEDS: PANTOPRAZOLE (EC) 40 MG TAB PO SCH (12:41)
[2016-10-28] MEDS: AMLODIPINE 5 MG TAB PO SCH ×2 (12:42→20:30)
[2016-10-28] MEDS: LOSARTAN 50 MG TAB PO SCH (12:42)
[2016-10-28] MEDS: CYCLOBENZAPRINE 10 MG TAB PO SCH ×2 (12:44→20:30)
[2016-10-28] MEDS: LANTHANUM 500 MG CHEW PO SCH ×2 (12:46→20:30)
[2016-10-28] MEDS: CINACALCET 30 MG TAB PO SCH (12:46)
[2016-10-28] MEDS: SEVELAMER 800 MG TAB PO SCH ×2 (13:00→18:47)
--- NOTE | 2016-10-28 14:20 | HP ---
DATE OF ADMISSION: 10/28/2016 CHIEF COMPLAINT: Nausea and vomiting, and shortness of breath and hypertension. HISTORY OF PRESENT ILLNESS: The patient is a 46-year-old female with past medical history positive for end-stage renal disease on hemodialysis. The patient had last hemodialysis 2 days ago on Wednesday . The patient also with history of ischemic cardiomyopathy, coronary artery disease, hypertension, lupus and dyslipidemia. In the emergency room, the patient's blood pressure was noted to be 200/99 on admission. The patient underwent a chest x-ray with no acute findings, moderate cardiomegaly. T he patient was given hydralazine, Benadryl and morphine with some improvement in symptoms. The gina ent denies any fever, complains of chills though. The patient's potassium was also elevated to 5.7. The patient is admitted for further evaluation and management to telemetry floor. PAST MEDICAL HISTORY: Per HPI. The patient also has a history of noncompliance, systolic heart david lure with ejection fraction of 35%, history of automatic implantable cardioverter defibrillator. PAST SURGICAL HISTORY: Status post AICD placement in 01/[address] 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 The patient follows with Dr. Wilkerson for hemodialysis. SOCIAL HISTORY: The patient lives at home with her family. The patient denies any alcohol use, den ies any tobacco use, denies any illicit drug use. FAMILY HISTORY: Noncontributory. ALLERGIES: THE PATIENT IS ALLERGIC TO VALACYCLOVIR. HOME MEDICATIONS: Include: 1. Alston. 2. Cyclobenzaprine. 3. Coreg. 4. Renvela. 5. Norvasc. 6. Sensipar. 7. Benadryl. 8. Colace. 9. Folic acid. 10. Hydralazine. 11. Protonix. 12. Fosrenol. 13. Cozaar. REVIEW OF SYSTEMS: A 12-point review of systems is negative unless what mentioned in the HPI. PHYSICAL ASSESSMENT: GENERAL: Well-developed, well-nourished female currently is awake, alert. VITAL SIGNS: Temperature is 98.0, blood pressure 175/89, heart rate 77, respiratory rate 18, oxygen saturation is 100% on room air. HEENT: Head is atraumatic, normocephalic. Pupils equal, round, reactive to light and accommodation . Oral mucosa is pink and moist. NECK: Supple, no cervical lymphadenopathy, no thyromegaly. CHEST: Lungs slightly diminished at the bases. Clear in the upper lobes. The patient has a right chest permanent pacemaker. CARDIOVASCULAR: Normal S1, S2. No murmurs, gallops, clicks, rubs noted. ABDOMEN: Round, soft, nondistended, nontender. Bowel sounds present. EXTREMITIES: The patient has a left upper extremity venous fistula with palpable thrill and audible bruit. Extremities no edema, clubbing, cyanosis. Pulses equal bilaterally 2+. SKIN: There is no rash or petechiae noted. NEUROLOGICAL: The patient is alert and oriented x4. No focal deficits noted. Motor strength is 5/ 5 in all extremities. LABORATORY DATA: On admission, CBC: White blood cell 7.3, hemoglobin 10.7, hematocrit 31.9, platel ets 179. Chemistry: Sodium is 139, potassium 5.7, chloride 96, carbon dioxide 23, anion gap 26, BU N 86, creatinine 12.87, glucose 92. AST is 25, ALT is 40, alkaline phosphatase 217. Troponin 0.1. BNP is 25,100. PT is 12.1, INR 0.9, APTT is 29.2. ASSESSMENT: 1. Hypertensive urgency. We are going to admit patient to telemetry floor. 2. Systolic congestive heart failure exacerbation. 3. End-stage renal disease, hemodialysis dependent. 4. History of lupus. 5. History of automatic implantable cardioverter defibrillator placement. 6. Anemia of renal disease. 7. Hyperkalemia. PLAN: The patient will undergo dialysis. Dr. Silva who is covering for Dr. Wilkerson will see patient in nephrologic consultation. Continue hydralazine p.r.n. for systolic blood pressure above 170. Re sume patient's home medications. Continue heparin for deep venous thrombosis prophylaxis and Proton ix for peptic ulcer disease prophylaxis. Further recommendations based on clinical course. Plan of care discussed with Dr. James. Dictated By: BENNY DYER BOARDING HOUSE MANAGER for DIONI JAMES MD SR/NTS Conf#: [id number] DID#: [id number]
--- NOTE | 2016-10-28 20:04 | CONS ---
Date/Time of Note Date/Time of Note DATE: 10/28/16 TIME: 19:58 Assessment/Plan Assessment/Plan Problems: (1) Hypertension Status: Acute (2) Anxiety Status: Acute (3) Hypoxia Status: Acute (4) Fluid overload Status: Acute (5) Hyperkalemia Status: Acute Additional Assessment/Plan hd planned to optimize volume Consultation Date/Type/Reason Admit Date/Time Oct 28, 2016 at 03:07 Reason for Consultation hd needed sec to sob vol overload Constitutional: requiring O2 Eyes: no complaints ENT: no complaints Respiratory: shortness of breath Cardiovascular: edema, orthopenea Gastrointestinal: no complaints Musculoskeletal: swelling Neurologic: no complaints Psychological: no complaints Past Medical History Medical History: congestive heart failure, coronary artery disease, hypertension Past Surgical History Past Surgical Hx: noncontributory, other (avf) Social History Alcohol Use: none Smoking Status: Never smoker Exam/Review of Systems Vital Signs Vitals Vital Signs Date Time Temp Pulse Resp B/P Pulse Ox O2 Delivery O2 Flow Rate FiO2 10/28/16 18:00 66 10/28/16 18:00 16 10/28/16 15:59 98.0 140/78 98 10/28/16 03:30 Room Air Intake and Output 10/27/16 10/27/16 10/28/16 15:00 23:00 07:00 Intake Total 150 ml Balance 150 ml Exam Constitutional: alert, oriented Head: normocephalic Eyes: nl conjunctiva ENMT: nl external ears & nose Neck: supple Respiratory: clear to auscultation, normal air movement Cardiovascular: regular rate and rhythm Gastrointestinal: soft Genitourinary - Female: nl adnexae Extremities: edema Neurological: confused Skin: nl turgor, rash or lesions Results Result Diagram: 10/28/16 0050 10/28/16 0050 Results 24 hrs Laboratory Tests Test 10/28/16 00:50 10/28/16 13:33 Activated Partial Thromboplast Time 29.2 Alanine Aminotransferase (ALT/SGPT) 40 Albumin 4.0 Albumin/Globulin Ratio 0.81 Alkaline Phosphatase 217 H Anion Gap 26 H Aspartate Amino Transf (AST/SGOT) 25 B-Type Natriuretic Peptide 72527 H Basophils # 0.0 Basophils % 0.6 Blood Morphology Comment Blood Urea Nitrogen 86 H Calcium Level 10.1 Carbon Dioxide Level 23 Chloride Level 96 L Creatinine 12.87 H Direct Bilirubin 0.00 Eosinophils # 0.1 Eosinophils % 1.7 Globulin 4.90 H Glucose Level 92 Hematocrit 31.9 L Hemoglobin 10.7 L INR International Normalized Ratio 0.90 Indirect Bilirubin 0.0 Lymphocytes # 1.8 Lymphocytes % 25.4 Mean Corpuscular Hemoglobin 35.9 H Mean Corpuscular Hemoglobin Concent 33.7 Mean Corpuscular Volume 106.4 H Mean Platelet Volume 10.2 Monocytes # 0.6 Monocytes % 8.0 Neutrophils # 4.7 Neutrophils % 64.3 Nucleated Red Blood Cells # 0.0 Nucleated Red Blood Cells % 0.0 Platelet Count 179 Potassium Level 5.7 H Prothrombin Time 12.1 L Prothrombin Time Ratio 0.9 Red Blood Count 2.99 L Red Cell Distribution Width 13.1 Sodium Level 139 Total Bilirubin 0.0 L Total Protein 8.9 H Troponin I 0.103 0.089 White Blood Count 7.3 # Medications Medications Current Medications Acetaminophen (Tylenol Tab) 650 mg Q6H PRN PO PAIN AND OR ELEVATED TEMP; Start 10/28/16 at 04:30 Ondansetron HCl (Zofran Inj) 4 mg Q6H PRN IV NAUSEA AND/OR VOMITING; Start at 04:30 Clonidine (Catapres) 0.1 mg Q4H PRN PO ELEVATED BLOOD PRESSURE Last administered on 10/28/16 10:00; Admin Dose 0.1 MG; Start 10/28/16 at 04:30 Hydralazine HCl (Apresoline) 10 mg Q4H PRN IV SBP>170; Start 10/28/16 at 12:00 Amlodipine Besylate (Norvasc) 5 mg BID PO Last administered on 10/28/16 12:42 ; Admin Dose 5 MG; Start 10/28/16 at 12:00 Carvedilol (Coreg) 25 mg BID PO Last administered on 10/28/16 12:41; Admin Dose 25 MG; Start 10/28/16 at 12:00 Cinacalcet (Sensipar) 60 mg DAILY PO ; Start 10/28/16 at 13:00 Cyclobenzaprine HCl (Flexeril) 10 mg TID PO ; Start 10/28/16 at 13:00 Diphenhydramine HCl (Benadryl) 50 mg Q12H PRN PO ITCHING Last administered on 14:26; Admin Dose 50 MG; Start 10/28/16 at 12:00 Docusate Sodium (Colace) 100 mg BID PRN PO CONSTIPATION; Start 10/28/16 at 12: 00 Folic Acid (Folic Acid) 1 mg DAILY PO ; Start 10/29/16 at 09:00 Hydralazine HCl (Apresoline) 50 mg DAILY PO Last administered on 10/28/16 12: 41; Admin Dose 50 MG; Start 10/28/16 at 12:00 Acetaminophen/ Hydrocodone Bitart ([place] (5/325)) 1 tab Q6H PRN PO PAIN; Start 10/28/16 at 12:00 Lanthanum Carbonate (Fosrenol) 500 mg TID PO ; Start 10/28/16 at 13:00 Losartan Potassium (Cozaar) 50 mg DAILY PO Last administered on 10/28/16 12:42 ; Admin Dose 50 MG; Start 10/28/16 at 12:00 Pantoprazole (Protonix Tab) 40 mg DAILY@06 PO Last administered on 10/28/16 12 :41; Admin Dose 40 MG; Start 10/28/16 at 12:00 Diphenhydramine HCl (Benadryl) 25 mg Q6H PRN IV ITCHING; Start 10/28/16 at 18: 30 GUILLERMO JONES MD Oct 28, 2016 20:04
[2016-10-28] MEDS: HYDROCODONE/APAP (5/325) TAB PO PRN (20:31)
[2016-10-28] MEDS: DIPHENHYDRAMINE 50 MG INJ IV PRN (20:32)
[2016-10-29] VITALS (18 sets, daily range): BP systolic 108–165; BP diastolic 14–95; PULSE 68–95; RESP 16–20
[2016-10-29] MEDS: PANTOPRAZOLE (EC) 40 MG TAB PO SCH (05:14)
[2016-10-29 07:31] LABS: BASOPHILS % 0.4 % (0.0-2.0); EOSINOPHILS # 0.1 10^3/ul (0.0-0.5); HEMATOCRIT 30.5 % (37.0-47.0); HEMOGLOBIN 10.3 g/dl (12.0-16.0); LYMPHOCYTES # 1.5 10^3/ul (0.8-2.9); MEAN CORPUSCULAR HGB CONC 33.6 g/dl (32.0-37.0); MEAN PLATELET VOLUME 9.4 fl (7.4-10.4); MONOCYTE # 0.4 10^3/ul (0.3-0.9); MONOCYTES % 6.7 % (0.0-11.0); NEUTROPHILS % 65.9 % (39.0-77.0); PLATELET COUNT 169 10^3/UL (140-440); RED BLOOD COUNT 2.85 10^6/ul (4.20-5.40); RED CELL DISTRIBUTION WIDTH 12.9 % (11.5-14.5)
[2016-10-29 07:36] LABS: CONDITION 1; LH ANALYZER COMMENTS 1
[2016-10-29 07:42] LABS: CREATININE 9.31 mg/dl (0.44-1.00)
[2016-10-29 07:43] LABS: CALCIUM 9.7 mg/dl (8.4-10.2)
[2016-10-29 07:53] LABS: POTASSIUM 6.3 mmol/L (3.5-5.1)
[2016-10-29] MEDS: SEVELAMER 800 MG TAB PO SCH ×3 (08:06→17:08)
[2016-10-29] MEDS: AMLODIPINE 5 MG TAB PO SCH ×2 (08:07→20:40)
[2016-10-29] MEDS: FOLIC ACID 1 MG TAB PO SCH (08:07)
[2016-10-29] MEDS: CYCLOBENZAPRINE 10 MG TAB PO SCH ×3 (08:07→20:44)
[2016-10-29] MEDS: LANTHANUM 500 MG CHEW PO SCH ×3 (08:07→20:39)
[2016-10-29] MEDS: LOSARTAN 50 MG TAB PO SCH (08:07)
[2016-10-29] MEDS: CINACALCET 30 MG TAB PO SCH (08:08)
[2016-10-29] MEDS: HYDROCODONE/APAP (5/325) TAB PO PRN (10:32)
--- NOTE | 2016-10-29 10:41 | PN ---
Date/Time of Note Date/Time of Note DATE: 10/29/16 TIME: 10:40 Assessment/Plan VTE Prophylaxis VTE Prophylaxis Intervention: heparin Lines/Catheters IV [facility]ter Type (from [facility] Saline Lock Urinary Cath still in place: No Assessment/Plan Assessment/Plan 1. Hypertensive urgency. - telemetry floor. - cardiology consult appreciated.-Dr Spencer notified. - Continue hydralazine p.r.n. for systolic blood pressure above 170. 2. Systolic congestive heart failure exacerbation. 3. End-stage renal disease, hemodialysis dependent. - per Dr Wilkerson - Skein Dyer 4. History of lupus. 5. History of automatic implantable cardioverter defibrillator placement. 6. Anemia of renal disease. 7. Hyperkalemia. - per nephrology - Kayexalate 60 gm x1 - BMP am 8. Heparin for deep venous thrombosis prophylaxis 9. Protonix for peptic ulcer disease prophylaxis. Further recommendations based on clinical course. Marino Campo Exam/Review of Systems Vital Signs Vitals Vital Signs Date Time Temp Pulse Resp B/P Pulse Ox O2 Delivery O2 Flow Rate FiO2 10/29/16 08:54 73 10/29/16 07:49 97.9 20 161/86 100 10/28/16 03:30 Room Air Intake and Output 10/28/16 10/28/16 10/29/16 15:00 23:00 07:00 Intake Total 1200 ml 400 ml Output Total 2600 ml Balance -1400 ml 400 ml Exam Constitutional: alert, oriented, well developed Psych: nl mood/affect Head: atraumatic Eyes: EOMI, nl sclera ENMT: nl external ears & nose Neck: non-tender Respiratory: clear to auscultation Cardiovascular: nl pulses Gastrointestinal: non-tender, soft Genitourinary - Female: other (hd patient) Musculoskeletal: nl extremities to inspection Extremities: normal pulses Neurological: nl mental status, nl speech Skin: nl turgor Lymph: nontender Results Result Diagram: 10/29/16 0608 10/29/16 0608 Results 24 hrs Laboratory Tests Test 10/28/16 13:33 10/28/16 19:05 10/29/16 06:08 Troponin I 0.089 0.096 Anion Gap 17 #H Basophils # 0.0 Basophils % 0.4 Blood Morphology Comment Blood Urea Nitrogen 49 #H Calcium Level 9.7 Carbon Dioxide Level 28 Chloride Level 99 Creatinine 9.31 #H Eosinophils # 0.1 Eosinophils % 2.0 Glucose Level 82 Hematocrit 30.5 L Hemoglobin 10.3 L Lymphocytes # 1.5 Lymphocytes % 25.0 Mean Corpuscular Hemoglobin 36.0 H Mean Corpuscular Hemoglobin Concent 33.6 Mean Corpuscular Volume 107.0 H Mean Platelet Volume 9.4 Monocytes # 0.4 Monocytes % 6.7 Neutrophils # 4.0 Neutrophils % 65.9 Nucleated Red Blood Cells # 0.0 Nucleated Red Blood Cells % 0.0 Platelet Count 169 Potassium Level 6.3 *H Red Blood Count 2.85 L Red Cell Distribution Width 12.9 Sodium Level 138 White Blood Count 6.0 Medications Medications Current Medications Acetaminophen (Tylenol Tab) 650 mg Q6H PRN PO PAIN AND OR ELEVATED TEMP; Start 10/28/16 at 04:30 Ondansetron HCl (Zofran Inj) 4 mg Q6H PRN IV NAUSEA AND/OR VOMITING; Start at 04:30 Clonidine (Catapres) 0.1 mg Q4H PRN PO ELEVATED BLOOD PRESSURE Last administered on 10/28/16 10:00; Admin Dose 0.1 MG; Start 10/28/16 at 04:30 Hydralazine HCl (Apresoline) 10 mg Q4H PRN IV SBP>170; Start 10/28/16 at 12:00 Amlodipine Besylate (Norvasc) 5 mg BID PO Last administered on 10/29/16 08:07 ; Admin Dose 5 MG; Start 10/28/16 at 12:00 Carvedilol (Coreg) 25 mg BID PO Last administered on 10/29/16 08:07; Admin Dose 25 MG; Start 10/28/16 at 12:00 Cinacalcet (Sensipar) 60 mg DAILY PO Last administered on 10/29/16 08:08; Admin Dose 60 MG; Start 10/28/16 at 13:00 Cyclobenzaprine HCl (Flexeril) 10 mg TID PO Last administered on 10/29/16 08: 07; Admin Dose 10 MG; Start 10/28/16 at 13:00 Diphenhydramine HCl (Benadryl) 50 mg Q12H PRN PO ITCHING Last administered on 2 /15/17at 14:26; Admin Dose 50 MG; Start 10/28/16 at 12:00 Docusate Sodium (Colace) 100 mg BID PRN PO CONSTIPATION; Start 10/28/16 at 12: 00 Folic Acid (Folic Acid) 1 mg DAILY PO Last administered on 10/29/16 08:07; Admin Dose 1 MG; Start 10/29/16 at 09:00 Hydralazine HCl (Apresoline) 50 mg DAILY PO Last administered on 10/29/16 08: 07; Admin Dose 50 MG; Start 10/28/16 at 12:00 Acetaminophen/ Hydrocodone Bitart ([place] (5/325)) 1 tab Q6H PRN PO PAIN Last administered on 10/28/16 20:31; Admin Dose 1 TAB; Start 10/28/16 at 12:00 Lanthanum Carbonate (Fosrenol) 500 mg TID PO Last administered on 10/29/16 08: 07; Admin Dose 500 MG; Start 10/28/16 at 13:00 Losartan Potassium (Cozaar) 50 mg DAILY PO Last administered on 10/29/16 08:07 ; Admin Dose 50 MG; Start 10/28/16 at 12:00 Pantoprazole (Protonix Tab) 40 mg DAILY@06 PO Last administered on 10/29/16 05 :14; Admin Dose 40 MG; Start 10/28/16 at 12:00 Diphenhydramine HCl (Benadryl) 25 mg Q6H PRN IV ITCHING Last administered on 20:32; Admin Dose 25 MG; Start 10/28/16 at 18:30 CHRISTELLE MOHAN Oct 29, 2016 10:41
[2016-10-29] MEDS ORDERED: NA POLYST SULFON 15 GM/60 ML BTL PO ONE (11:00)
[2016-10-29] MEDS: morphine 2 MG INJ IV PRN ×3 (11:25→23:39)
[2016-10-29] MEDS ORDERED: ALBUMIN HUMAN 25% 100 ML IV PRN (11:30)
[2016-10-29] MEDS ORDERED: LACTULOSE 30ML CUP PO PRN (11:30)
[2016-10-29 11:59] LABS: CHOL/HDL RATIO 4.2 RATIO
[2016-10-29] MEDS: DOCUSATE SODIUM 100 MG CAP PO SCH ×3 (13:15→20:40)
--- NOTE | 2016-10-29 13:43 | CONS ---
DATE OF ADMISSION: 10/28/2016 DATE OF CONSULTATION: 10/29/2016 REASON FOR CONSULTATION: Hypertensive urgency/emergency as well as cardiomyopathy, decreased left v entricular ejection fraction. REQUESTING PHYSICIAN: Thiago Campo MD HISTORY OF PRESENT ILLNESS: Ms. Dang is a 46-year-old female with a history of cardiomyopathy with decreased left ventricular ejection fraction, last being approximately 35% by echo March 2016, statu s post AICD implant, hypertension, end-stage renal disease on hemodialysis, congestive heart failure , medical noncompliance, lupus, who initially presented with worsening shortness of breath and uncon trolled systolic blood pressures and headache. Upon arrival initially on 10/27/2016, temperature 98 .1, blood pressure markedly elevated 200/99, pulse 74, respiratory rate 16, satting 76% on room air. The patient's labs revealed a white count 7.3, hemoglobin 10.7, and platelet count 179, a sodium o f 139, potassium 5.7, creatinine 12.8, BUN of 86. Troponin negative. BNP of 25,100. LDL 139, HDL 55. INR 0.9. The patient's chest x-ray revealed moderate cardiomegaly, clear lungs. The patient s ubsequently admitted to the floor and underwent hemodialysis with improvement in shortness breath. Continues to have elevated potassium. The patient at this time denies chest pain. PAST MEDICAL HISTORY: As above in HPI. MEDICATIONS CURRENTLY IN HOSPITAL: 1. Albumin p.r.n. 2. Lactulose. 3. Morphine p.r.n. 4. Folic acid. 5. Benadryl. 6. Sensipar. 7. Flexeril 10 mg p.o. t.i.d. 8. Fosrenol 500 mg t.i.d. 8. Renagel 800 mg with meals. 9. Hydralazine p.r.n. 10. Norvasc 5 mg p.o. b.i.d. 11. Carvedilol 25 mg p.o. b.i.d. 12. Hydralazine 50 mg daily. 12. Losartan 50 mg daily. ALLERGIES: VALACYCLOVIR. SOCIAL HISTORY: No tobacco, ETOH or illicit drug use. FAMILY HISTORY: No history of sudden cardiac or early CAD. REVIEW OF SYSTEMS: As above in HPI. CONSTITUTIONAL: No fevers, chills. PULMONARY: Shortness of breath. CARDIOVASCULAR: No current chest pain. GASTROINTESTINAL: No vomiting. GENITOURINARY: End-stage renal disease. PSYCHIATRIC: No documented psych history. NEUROLOGIC: No documented history of CVA. ENDOCRINE: No documented history of diabetes mellitus. PHYSICAL EXAMINATION: VITAL SIGNS: Temperature of 98.1, blood pressure most recently 165/89, pulse 76, respirations 17, s aturating 96%. GENERAL: The patient is alert, awake, in no acute distress. NECK: JVP approximately 8 cm of water. CHEST: Bibasilar crackles. HEART: Regular rate and rhythm. Normal S1, S2. Laterally displaced PMI. ABDOMEN: Positive bowel sounds, soft. EXTREMITIES: Trace edema, 1+ pulses bilaterally at the posterior tibial. LABORATORY DATA: Most recent from today, sodium 138, potassium 6.3, creatinine of 9.3, BUN of 49. Troponin negative x3. LDL 139, HDL 55. White blood cell count 6.0, hemoglobin 10.3, platelet count of 169. INR 0.9. IMAGING STUDIES: As above in HPI. No imaging studies for my review at this time. ECG: As above in HPI revealing a normal sinus rhythm, rate of 66 with normal axis and nonspecific S T-T abnormalities. IMPRESSION: 1. Hypertensive urgency/emergency, slowly improving. 2. Cardiomyopathy with decreased left ventricular ejection fraction last known to be 35% by echo, 0 03/2016. 3. History of AICD implant. 4. Abnormal electrocardiogram, assess for acute coronary syndrome. 5. Hyperkalemia. 6. End-stage renal disease on hemodialysis. 7. History of lupus. 8. Anemia. RECOMMENDATIONS: 1. At this time, would maintain the patient on telemetry monitoring to follow rhythm and rate close ly. 2. Check a 2D echo to reassess the patient's ejection fraction, wall motion and any major valve abn ormalities. 3. Continue the patient's hemodialysis for volume removal and correction of potassium. 4. We will continue the patient's current antihypertensives with Carvedilol, Amlodipine, hydralazi ne and Losartan additionally for now, but will watch potassium with Losartan. 5. Will increase the patient's hydralazine from daily to t.i.d. and follow up blood pressure. 6. Continue the patient's p.r.n. albumin and continue to follow the patient's potassium closely, po ssible need for Kayexalate addition, as patient was ordered for a . Thank you for allowing me to take part in the care of this patient. I will continue to follow very closely with you with further recommendations to be made as the patient progresses through the [facility] clinical course. Dictated By: DEONNA CEE/LUAN Conf#: [id number] DID#: [id number] CC: THIAGO CAMPO MD;*EndCC*
--- NOTE | 2016-10-29 15:26 | CONS ---
Date/Time of Note Date/Time of Note DATE: 10/29/16 TIME: 15:26 Assessment/Plan Assessment/Plan Chief Complaint/Hosp Course ESRD HTN HYPERKALEMIA ASHD LOW EF PLAN HD Problems: Consultation Date/Type/Reason Admit Date/Time Oct 28, 2016 at 03:07 Initial Consult Date Type of Consultation: renal 24 HR Interval Summary Constitutional: no complaints Exam/Review of Systems Vital Signs Vitals Vital Signs Date Time Temp Pulse Resp B/P Pulse Ox O2 Delivery O2 Flow Rate FiO2 10/29/16 14:05 95 10/29/16 11:54 98.1 17 165/89 96 10/28/16 03:30 Room Air Intake and Output 10/28/16 10/28/16 10/29/16 15:00 23:00 07:00 Intake Total 1200 ml 400 ml Output Total 2600 ml Balance -1400 ml 400 ml Exam Cardiovascular: regular rate and rhythm Gastrointestinal: soft Genitourinary - Female: nl adnexae Musculoskeletal: nl extremities to inspection Extremities: normal pulses Results Result Diagram: 10/29/16 0608 10/29/16 0608 Results 24 hrs Laboratory Tests Test 10/28/16 19:05 10/29/16 06:08 Troponin I 0.096 Anion Gap 17 #H Basophils # 0.0 Basophils % 0.4 Blood Morphology Comment Blood Urea Nitrogen 49 #H Calcium Level 9.7 Carbon Dioxide Level 28 Chloride Level 99 Cholesterol Level 231 H Cholesterol/HDL Ratio 4.2 Creatinine 9.31 #H Eosinophils # 0.1 Eosinophils % 2.0 Glucose Level 82 HDL Cholesterol 55 Hematocrit 30.5 L Hemoglobin 10.3 L LDL Cholesterol, Calculated 139 Lymphocytes # 1.5 Lymphocytes % 25.0 Mean Corpuscular Hemoglobin 36.0 H Mean Corpuscular Hemoglobin Concent 33.6 Mean Corpuscular Volume 107.0 H Mean Platelet Volume 9.4 Monocytes # 0.4 Monocytes % 6.7 Neutrophils # 4.0 Neutrophils % 65.9 Nucleated Red Blood Cells # 0.0 Nucleated Red Blood Cells % 0.0 Platelet Count 169 Potassium Level 6.3 *H Red Blood Count 2.85 L Red Cell Distribution Width 12.9 Sodium Level 138 Triglycerides Level 183 H White Blood Count 6.0 Medications Medications Current Medications Acetaminophen (Tylenol Tab) 650 mg Q6H PRN PO PAIN AND OR ELEVATED TEMP; Start 10/28/16 at 04:30 Ondansetron HCl (Zofran Inj) 4 mg Q6H PRN IV NAUSEA AND/OR VOMITING; Start at 04:30 Clonidine (Catapres) 0.1 mg Q4H PRN PO ELEVATED BLOOD PRESSURE Last administered on 10/28/16 10:00; Admin Dose 0.1 MG; Start 10/28/16 at 04:30 Hydralazine HCl (Apresoline) 10 mg Q4H PRN IV SBP>170; Start 10/28/16 at 12:00 Amlodipine Besylate (Norvasc) 5 mg BID PO Last administered on 10/29/16 08:07 ; Admin Dose 5 MG; Start 10/28/16 at 12:00 Carvedilol (Coreg) 25 mg BID PO Last administered on 10/29/16 08:07; Admin Dose 25 MG; Start 10/28/16 at 12:00 Cinacalcet (Sensipar) 60 mg DAILY PO Last administered on 10/29/16 08:08; Admin Dose 60 MG; Start 10/28/16 at 13:00 Cyclobenzaprine HCl (Flexeril) 10 mg TID PO Last administered on 10/29/16 08: 07; Admin Dose 10 MG; Start 10/28/16 at 13:00 Diphenhydramine HCl (Benadryl) 50 mg Q12H PRN PO ITCHING Last administered on 14:26; Admin Dose 50 MG; Start 10/28/16 at 12:00 Docusate Sodium (Colace) 100 mg BID PRN PO CONSTIPATION; Start 10/28/16 at 12: 00 Folic Acid (Folic Acid) 1 mg DAILY PO Last administered on 10/29/16 08:07; Admin Dose 1 MG; Start 10/29/16 at 09:00 Acetaminophen/ Hydrocodone Bitart ([place] (5/325)) 1 tab Q6H PRN PO PAIN Last administered on 10/28/16 20:31; Admin Dose 1 TAB; Start 10/28/16 at 12:00 Lanthanum Carbonate (Fosrenol) 500 mg TID PO Last administered on 10/29/16 08: 07; Admin Dose 500 MG; Start 10/28/16 at 13:00 Losartan Potassium (Cozaar) 50 mg DAILY PO Last administered on 10/29/16 08:07 ; Admin Dose 50 MG; Start 10/28/16 at 12:00 Pantoprazole (Protonix Tab) 40 mg DAILY@06 PO Last administered on 10/29/16 05 :14; Admin Dose 40 MG; Start 10/28/16 at 12:00 Diphenhydramine HCl (Benadryl) 25 mg Q6H PRN IV ITCHING Last administered on 20:32; Admin Dose 25 MG; Start 10/28/16 at 18:30 Morphine Sulfate (morphine) 2 mg Q6 PRN IV SEVERE PAIN LEVEL 7-10 Last administered on 10/29/16 11:25; Admin Dose 2 MG; Start 10/29/16 at 11:00 Lactulose (Enulose) 10 gm BID PRN PO CONSTIPATION; Start 10/29/16 at 11:30 Docusate Sodium (Colace) 100 mg BID PO ; Start 10/29/16 at 11:30 Hydralazine HCl (Apresoline) 50 mg Q8 PO ; Start 10/29/16 at 14:00 REMI SIMPSON MD Oct 29, 2016 15:26
[2016-10-29] MEDS ORDERED: BISACODYL (EC) 5 MG TAB PO ONE (18:00)
--- NOTE | 2016-10-29 18:30 | RADRPT ---
Echocardiogram Report Patient Name: ANYA GO Gender: Female Date: 1970 Study Date: 29-Oct-2016 After School Program Teacher: Shira Hein [facility] Location: [id number] Ref. Physician: DEONNA SPENCER Quality: Good Procedures: Transthoracic echocardiogram with complete 2D, M-Mode, and doppler examination. Indications: Congestive Heart Failure. 2D/M Mode Doppler Measurement Value Normal Ranges Measurement Value Normal Ranges LVIDd 2D 6.1 3.5 - 5.6 cm AV Peak Henry 2.0 m/sec LVIDs 2D 4.1 2.1 - 4.1 cm AV Peak PG 15.2 mmHg LVPWd 2D 1.1 0.6 - 1.1 cm LVOT Peak Henry 1.4 m/sec IVSd 2D 1.4 0.6 - 1.1 cm LVOT Peak PG 8.2 mmHg AoR Diam 2D 2.6 2.0 - 3.7 cm MV E Peak Henry 0.6 m/sec EDV 2D 187.4 cm3 MV A Peak Henry 0.7 m/sec ESV 2D 70.4 cm3 MV E/A 0.9 LA Dimen 2D 3.6 2.3 - 4.0 cm MV Decel Time 182 msec MV Decel [place] 3 MV E/A 0.9 TR Peak Henry 2.1 m/sec TR Peak PG 17.0 mmHg RVSP 20.0 mmHg Findings Left Ventricle: Mild asymmetric septal hypertrophy. Moderate enlargement of left ventricle cavity. Moderate global left ventricular systolic dysfunction. Ejection fraction is visually estimated at 40 %. Tissue Doppler/Mitral Doppler indices are consistent with impaired relaxation (Stage I diastolic dysfunction). Right Ventricle: Normal right ventricular size. Normal right ventricular systolic function. Linear artifact in right ventricle suggestive of catheter, pacer lead, or ICD lead. Left Atrium: The left atrium is normal in size. Right Atrium: The right atrium is normal in size. Mitral Valve: Normal appearance and function of the mitral valve with trace physiologic regurgitation. Aortic Valve: Aortic sclerosis without stenosis. Aortic cusps appear mildly calcified. Trace aortic valve regurgitation. Tricuspid Valve: Normal appearance of the tricuspid valve. Estimated peak PA systolic pressure 20 mmHg. There is trace tricuspid regurgitation. Pulmonic Valve: Normal pulmonic valve appearance. There is trace pulmonic regurgitation. Pericardium: Normal pericardium with no significant pericardial effusion. Aorta: Normal aortic root. IVC: Normal size and normal respiratory collapse consistent with normal right atrial pressure. Conclusions 1.Mild asymmetric septal hypertrophy. Moderate enlargement of left ventricle cavity. Moderate global left ventricular systolic dysfunction. Ejection fraction is visually estimated at 40 %. Tissue Doppler/Mitral Doppler indices are consistent with impaired relaxation (Stage I diastolic dysfunction). 2.Normal right ventricular size. Normal right ventricular systolic function. Linear artifact in right ventricle suggestive of catheter, pacer lead, or ICD lead. 3.Normal appearance and function of the mitral valve with trace physiologic regurgitation. 4.Trace aortic valve regurgitation. 5.Estimated peak PA systolic pressure 20 mmHg. 6.There is trace tricuspid regurgitation. 7.There is trace pulmonic regurgitation. Electronically Signed By: Deonna Spencer 29-Oct-2016 18:30:23 -0800 Patient Name: ANYA GO Study Date: 29-Oct-2016 [id number]
[2016-10-29] MEDS: SENNA TAB PO SCH (20:39)
[2016-10-29] MEDS: DOCOSANOL 2 GM CREAM TOP SCH (20:40)
[2016-10-29] MEDS: ONDANSETRON 4 MG INJ IV PRN (22:30)
[2016-10-30] VITALS (20 sets, daily range): BP systolic 94–187; BP diastolic 50–93; PULSE 72–91; RESP 18–21
[2016-10-30] MEDS: PANTOPRAZOLE (EC) 40 MG TAB PO SCH (05:35)
[2016-10-30 08:13] LABS: BASOPHILS % 0.5 % (0.0-2.0); EOSINOPHILS # 0.2 10^3/ul (0.0-0.5); EOSINOPHILS % 2.8 % (0.0-7.0); HEMOGLOBIN 10.8 g/dl (12.0-16.0); LYMPHOCYTES # 1.6 10^3/ul (0.8-2.9); LYMPHOCYTES % 25.9 % (15.0-51.0); MEAN CORPUSCULAR HEMOGLOBIN 35.9 pg (29.0-33.0); MEAN CORPUSCULAR HGB CONC 33.6 g/dl (32.0-37.0); MEAN CORPUSCULAR VOLUME 106.8 fl (82.0-101.0); MEAN PLATELET VOLUME 10.1 fl (7.4-10.4); MONOCYTE # 0.6 10^3/ul (0.3-0.9); MONOCYTES % 10.4 % (0.0-11.0); NEUTROPHIL # 3.7 10^3/ul (1.6-7.5); NEUTROPHILS % 60.4 % (39.0-77.0); PLATELET COUNT 161 10^3/UL (140-440); RED CELL DISTRIBUTION WIDTH 12.8 % (11.5-14.5); UNCORRECTED WBC 6.2 10^3/ul (4.8-10.8); WHITE BLOOD COUNT 6.2 10^3/ul (4.8-10.8)
[2016-10-30 08:25] LABS: CHOL/HDL RATIO 3.4 RATIO
[2016-10-30 08:26] LABS: CONDITION 1; LH ANALYZER COMMENTS 1
[2016-10-30 08:30] LABS: TROPONIN-I 0.058 ng/ml (0.00-0.12)
[2016-10-30] MEDS: DOCUSATE SODIUM 100 MG CAP PO SCH ×2 (08:32→20:34)
[2016-10-30] MEDS: SENNA TAB PO SCH ×2 (08:32→20:34)
[2016-10-30] MEDS: LANTHANUM 500 MG CHEW PO SCH ×3 (08:32→20:34)
[2016-10-30] MEDS: CINACALCET 30 MG TAB PO SCH (08:32)
[2016-10-30] MEDS: SEVELAMER 800 MG TAB PO SCH ×3 (08:32→17:20)
[2016-10-30] MEDS: FOLIC ACID 1 MG TAB PO SCH (08:33)
[2016-10-30] MEDS: CYCLOBENZAPRINE 10 MG TAB PO SCH ×3 (08:33→20:33)
[2016-10-30] MEDS: AMLODIPINE 5 MG TAB PO SCH ×2 (08:33→20:34)
[2016-10-30] MEDS: LOSARTAN 50 MG TAB PO SCH (08:33)
[2016-10-30] MEDS: DOCOSANOL 2 GM CREAM TOP SCH ×5 (08:36→20:35)
[2016-10-30 08:40] LABS: CALCIUM 9.7 mg/dl (8.4-10.2); CREATININE 8.46 mg/dl (0.44-1.00)
[2016-10-30] MEDS: ONDANSETRON 4 MG INJ IV PRN ×2 (08:44→15:43)
[2016-10-30 09:09] LABS: POTASSIUM 6.2 mmol/L (3.5-5.1)
[2016-10-30] MEDS: morphine 2 MG INJ IV PRN (09:43)
[2016-10-30] MEDS: DIPHENHYDRAMINE 50 MG INJ IV PRN ×2 (12:43→20:58)
--- NOTE | 2016-10-30 13:34 | RADRPT ---
Vent Rate: 74 bpm RR Interval: 0 msec MT Interval: 156 msec QRS Duration: 92 msec QT Interval: 406 msec QTC Interval: 450 msec P-R-T Nordman: 15 - -13 - 102 degrees Normal sinus rhythm Moderate voltage criteria for LVH, may be normal variant T wave abnormality, consider lateral ischemia Abnormal ECG Electronically Signed By: Gurjit Oliva [id number]
--- NOTE | 2016-10-30 13:59 | CONS ---
Date/Time of Note Date/Time of Note DATE: 10/30/16 TIME: 13:59 Assessment/Plan Assessment/Plan Chief Complaint/Hosp Course ESRD HTN HYPERKALEMIA ASHD LOW EF PLAN HD RENAL DIET OK TO GO HOME POST HD Problems: Consultation Date/Type/Reason Admit Date/Time Oct 28, 2016 at 03:07 Type of Consultation: renal 24 HR Interval Summary Constitutional: no complaints Exam/Review of Systems Vital Signs Vitals Vital Signs Date Time Temp Pulse Resp B/P Pulse Ox O2 Delivery O2 Flow Rate FiO2 10/30/16 12:55 80 10/30/16 12:05 16 10/30/16 11:50 98.3 155/89 99 10/28/16 03:30 Room Air Intake and Output 10/29/16 10/29/16 10/30/16 15:00 23:00 07:00 Intake Total 500 ml 700 ml 480 ml Output Total 2500 ml Balance -2000 ml 700 ml 480 ml Exam Neck: supple Respiratory: clear to auscultation Cardiovascular: regular rate and rhythm Gastrointestinal: soft Musculoskeletal: nl extremities to inspection Results Result Diagram: 10/30/16 0700 10/30/16 0700 Results 24 hrs Laboratory Tests Test 10/30/16 07:00 Anion Gap 22 H Basophils # 0.0 Basophils % 0.5 Blood Morphology Comment Blood Urea Nitrogen 40 H Calcium Level 9.7 Carbon Dioxide Level 26 Chloride Level 97 Cholesterol Level 217 H Cholesterol/HDL Ratio 3.4 Creatine Kinase 34 Creatine Kinase Index 2.9 Creatinine 8.46 H Creatinine Kinase MB (Mass) 1.00 Eosinophils # 0.2 Eosinophils % 2.8 Glucose Level 80 HDL Cholesterol 63 Hematocrit 32.0 L Hemoglobin 10.8 L LDL Cholesterol, Calculated 119 Lymphocytes # 1.6 Lymphocytes % 25.9 Mean Corpuscular Hemoglobin 35.9 H Mean Corpuscular Hemoglobin Concent 33.6 Mean Corpuscular Volume 106.8 H Mean Platelet Volume 10.1 Monocytes # 0.6 Monocytes % 10.4 Neutrophils # 3.7 Neutrophils % 60.4 Nucleated Red Blood Cells # 0.0 Nucleated Red Blood Cells % 0.0 Platelet Count 161 Potassium Level 6.2 *H Red Blood Count 3.00 L Red Cell Distribution Width 12.8 Sodium Level 139 Triglycerides Level 173 H Troponin I 0.058 White Blood Count 6.2 Medications Medications Current Medications Acetaminophen (Tylenol Tab) 650 mg Q6H PRN PO PAIN AND OR ELEVATED TEMP; Start 10/28/16 at 04:30 Ondansetron HCl (Zofran Inj) 4 mg Q6H PRN IV NAUSEA AND/OR VOMITING Last administered on 10/30/16 08:44; Admin Dose 4 MG; Start 10/28/16 at 04:30 Clonidine (Catapres) 0.1 mg Q4H PRN PO ELEVATED BLOOD PRESSURE Last administered on 10/28/16 10:00; Admin Dose 0.1 MG; Start 10/28/16 at 04:30 Hydralazine HCl (Apresoline) 10 mg Q4H PRN IV SBP>170; Start 10/28/16 at 12:00 Amlodipine Besylate (Norvasc) 5 mg BID PO Last administered on 10/30/16 08:33 ; Admin Dose 5 MG; Start 10/28/16 at 12:00 Carvedilol (Coreg) 25 mg BID PO Last administered on 10/30/16 08:34; Admin Dose 25 MG; Start 10/28/16 at 12:00 Cinacalcet (Sensipar) 60 mg DAILY PO Last administered on 10/30/16 08:32; Admin Dose 60 MG; Start 10/28/16 at 13:00 Cyclobenzaprine HCl (Flexeril) 10 mg TID PO Last administered on 10/30/16 08: 33; Admin Dose 10 MG; Start 10/28/16 at 13:00 Diphenhydramine HCl (Benadryl) 50 mg Q12H PRN PO ITCHING Last administered on 14:26; Admin Dose 50 MG; Start 10/28/16 at 12:00 Docusate Sodium (Colace) 100 mg BID PRN PO CONSTIPATION; Start 10/28/16 at 12: 00 Folic Acid (Folic Acid) 1 mg DAILY PO Last administered on 10/30/16 08:33; Admin Dose 1 MG; Start 10/29/16 at 09:00 Acetaminophen/ Hydrocodone Bitart ([place] (5/325)) 1 tab Q6H PRN PO PAIN Last administered on 10/28/16 20:31; Admin Dose 1 TAB; Start 10/28/16 at 12:00 Lanthanum Carbonate (Fosrenol) 500 mg TID PO Last administered on 10/30/16 08: 32; Admin Dose 500 MG; Start 10/28/16 at 13:00 Losartan Potassium (Cozaar) 50 mg DAILY PO Last administered on 10/30/16 08:33 ; Admin Dose 50 MG; Start 10/28/16 at 12:00 Pantoprazole (Protonix Tab) 40 mg DAILY@06 PO Last administered on 10/30/16 05 :35; Admin Dose 40 MG; Start 10/28/16 at 12:00 Diphenhydramine HCl (Benadryl) 25 mg Q6H PRN IV ITCHING Last administered on 12:43; Admin Dose 25 MG; Start 10/28/16 at 18:30 Morphine Sulfate (morphine) 2 mg Q6 PRN IV SEVERE PAIN LEVEL 7-10 Last administered on 10/30/16 09:43; Admin Dose 2 MG; Start 10/29/16 at 11:00 Lactulose (Enulose) 10 gm BID PRN PO CONSTIPATION; Start 10/29/16 at 11:30 Docusate Sodium (Colace) 100 mg BID PO Last administered on 10/30/16 08:32; Admin Dose 100 MG; Start 10/29/16 at 11:30 Hydralazine HCl (Apresoline) 50 mg Q8 PO Last administered on 10/30/16 00:19; Admin Dose 50 MG; Start 10/29/16 at 14:00 Senna (Senokot) 2 tab BID PO Last administered on 10/30/16 08:32; Admin Dose 2 TAB; Start 10/29/16 at 21:00 Polyethylene Glycol (Miralax) 17 gm DAILY PO ; Start 10/30/16 at 14:00 Morphine Sulfate (morphine) 2 mg ONCE ONCE IV ; Start 10/30/16 at 14:00; Stop 10/30/16 at 14:01 Polyethylene Glycol (Miralax) 17 gm PRN PRN PO CONSTIPATION; Start 10/30/16 at 14:00 REMI SIMPSON MD Oct 30, 2016 13:59
[2016-10-30] MEDS ORDERED: morphine 2 MG INJ IV ONE (14:00)
[2016-10-30] MEDS ORDERED: POLYETHYLENE GLYCOL 17 GM PACKET PO PRN (14:00)
--- NOTE | 2016-10-30 14:20 | CONS ---
Date/Time of Note Date/Time of Note DATE: 10/30/16 TIME: 14:15 Assessment/Plan Assessment/Plan Chief Complaint/Hosp Course IMPRESSION: 1. Hypertensive urgency/emergency, slowly improving on oral anti-hypertensives 2. Cardiomyopathy with decreased left ventricular ejection fraction last known to be 35% by echo, 03/2016.. EF 40% by echo this admit/negative troponin x 3 3. History of AICD implant. 4. Abnormal electrocardiogram, assess for acute coronary syndrome. 5. Hyperkalemia. 6. End-stage renal disease on hemodialysis. 7. History of lupus. 8. Anemia. 9.Dyslipidemia Recc: -Tele -Continue norvasc/coreg/hydralazine/losartan as patient will comply with with further uptitrations as necessary -HD for volume removal Problems: Consultation Date/Type/Reason Admit Date/Time Oct 28, 2016 at 03:07 Initial Consult Date 10/29/16 Type of Consultation: Cardiology Reason for Consultation HTN emergency Referring Provider: DIONI JAMES MD Exam/Review of Systems Vital Signs Vitals Vital Signs Date Time Temp Pulse Resp B/P Pulse Ox O2 Delivery O2 Flow Rate FiO2 10/30/16 12:55 80 10/30/16 12:05 16 10/30/16 11:50 98.3 155/89 99 10/28/16 03:30 Room Air Intake and Output 10/29/16 10/29/16 10/30/16 15:00 23:00 07:00 Intake Total 500 ml 700 ml 480 ml Output Total 2500 ml Balance -2000 ml 700 ml 480 ml Exam Review of Systems: CONSTITUTIONAL: No fevers, chills. PULMONARY: No sob CARDIOVASCULAR: No chest pain/palpitations GASTROINTESTINAL: abd cramping GENITOURINARY: No hematuria/dysuria. MUSCULOSKELETAL: No myagias/arthalgias. PSYCHIATRIC: The patient denies depression. NEUROLOGIC: No weakness Constitutional: alert, oriented Psych: no complaints Head: normocephalic ENMT: mucosa pink and moist Neck: jvd (9 cm water), supple Respiratory: diminished breath sounds (at bases/B) Cardiovascular: regular rate and rhythm Gastrointestinal: non-tender, soft Musculoskeletal: muscle tone (normal) Extremities: pitting pedal edema (trace/B) Neurological: other (No focal deficits) Results Result Diagram: 10/30/16 0700 10/30/16 0700 Results 24 hrs Laboratory Tests Test 10/30/16 07:00 Anion Gap 22 H Basophils # 0.0 Basophils % 0.5 Blood Morphology Comment Blood Urea Nitrogen 40 H Calcium Level 9.7 Carbon Dioxide Level 26 Chloride Level 97 Cholesterol Level 217 H Cholesterol/HDL Ratio 3.4 Creatine Kinase 34 Creatine Kinase Index 2.9 Creatinine 8.46 H Creatinine Kinase MB (Mass) 1.00 Eosinophils # 0.2 Eosinophils % 2.8 Glucose Level 80 HDL Cholesterol 63 Hematocrit 32.0 L Hemoglobin 10.8 L LDL Cholesterol, Calculated 119 Lymphocytes # 1.6 Lymphocytes % 25.9 Mean Corpuscular Hemoglobin 35.9 H Mean Corpuscular Hemoglobin Concent 33.6 Mean Corpuscular Volume 106.8 H Mean Platelet Volume 10.1 Monocytes # 0.6 Monocytes % 10.4 Neutrophils # 3.7 Neutrophils % 60.4 Nucleated Red Blood Cells # 0.0 Nucleated Red Blood Cells % 0.0 Platelet Count 161 Potassium Level 6.2 *H Red Blood Count 3.00 L Red Cell Distribution Width 12.8 Sodium Level 139 Triglycerides Level 173 H Troponin I 0.058 White Blood Count 6.2 Medications Medications Current Medications Acetaminophen (Tylenol Tab) 650 mg Q6H PRN PO PAIN AND OR ELEVATED TEMP; Start 10/28/16 at 04:30 Ondansetron HCl (Zofran Inj) 4 mg Q6H PRN IV NAUSEA AND/OR VOMITING Last administered on 10/30/16 08:44; Admin Dose 4 MG; Start 10/28/16 at 04:30 Clonidine (Catapres) 0.1 mg Q4H PRN PO ELEVATED BLOOD PRESSURE Last administered on 10/28/16 10:00; Admin Dose 0.1 MG; Start 10/28/16 at 04:30 Hydralazine HCl (Apresoline) 10 mg Q4H PRN IV SBP>170; Start 10/28/16 at 12:00 Amlodipine Besylate (Norvasc) 5 mg BID PO Last administered on 10/30/16 08:33 ; Admin Dose 5 MG; Start 10/28/16 at 12:00 Carvedilol (Coreg) 25 mg BID PO Last administered on 10/30/16 08:34; Admin Dose 25 MG; Start 10/28/16 at 12:00 Cinacalcet (Sensipar) 60 mg DAILY PO Last administered on 10/30/16 08:32; Admin Dose 60 MG; Start 10/28/16 at 13:00 Cyclobenzaprine HCl (Flexeril) 10 mg TID PO Last administered on 10/30/16 08: 33; Admin Dose 10 MG; Start 10/28/16 at 13:00 Diphenhydramine HCl (Benadryl) 50 mg Q12H PRN PO ITCHING Last administered on 14:26; Admin Dose 50 MG; Start 10/28/16 at 12:00 Docusate Sodium (Colace) 100 mg BID PRN PO CONSTIPATION; Start 10/28/16 at 12: 00 Folic Acid (Folic Acid) 1 mg DAILY PO Last administered on 10/30/16 08:33; Admin Dose 1 MG; Start 10/29/16 at 09:00 Acetaminophen/ Hydrocodone Bitart ([place] (5/325)) 1 tab Q6H PRN PO PAIN Last administered on 10/28/16 20:31; Admin Dose 1 TAB; Start 10/28/16 at 12:00 Lanthanum Carbonate (Fosrenol) 500 mg TID PO Last administered on 10/30/16 08: 32; Admin Dose 500 MG; Start 10/28/16 at 13:00 Losartan Potassium (Cozaar) 50 mg DAILY PO Last administered on 10/30/16 08:33 ; Admin Dose 50 MG; Start 10/28/16 at 12:00 Pantoprazole (Protonix Tab) 40 mg DAILY@06 PO Last administered on 10/30/16 05 :35; Admin Dose 40 MG; Start 10/28/16 at 12:00 Diphenhydramine HCl (Benadryl) 25 mg Q6H PRN IV ITCHING Last administered on 12:43; Admin Dose 25 MG; Start 10/28/16 at 18:30 Morphine Sulfate (morphine) 2 mg Q6 PRN IV SEVERE PAIN LEVEL 7-10 Last administered on 10/30/16 09:43; Admin Dose 2 MG; Start 10/29/16 at 11:00 Lactulose (Enulose) 10 gm BID PRN PO CONSTIPATION; Start 10/29/16 at 11:30 Docusate Sodium (Colace) 100 mg BID PO Last administered on 10/30/16 08:32; Admin Dose 100 MG; Start 10/29/16 at 11:30 Hydralazine HCl (Apresoline) 50 mg Q8 PO Last administered on 10/30/16 00:19; Admin Dose 50 MG; Start 10/29/16 at 14:00 Senna (Senokot) 2 tab BID PO Last administered on 10/30/16 08:32; Admin Dose 2 TAB; Start 10/29/16 at 21:00 Polyethylene Glycol (Miralax) 17 gm DAILY PO ; Start 10/30/16 at 14:00 Polyethylene Glycol (Miralax) 17 gm PRN PRN PO CONSTIPATION; Start 10/30/16 at 14:00 DEONNA DENT Oct 30, 2016 14:20
[2016-10-30] MEDS: POLYETHYLENE GLYCOL 17 GM PACKET PO SCH (15:43)
--- NOTE | 2016-10-30 17:35 | PN ---
Date/Time of Note Date/Time of Note DATE: 10/30/16 TIME: 17:32 Assessment/Plan VTE Prophylaxis VTE Prophylaxis Intervention: SCD's Lines/Catheters IV Catheter Type (from [facility]): Saline Lock Urinary Cath still in place: No Assessment/Plan Chief Complaint/Hosp Course ASSESSMENT: 1. S/p hypertensive urgency. 2. Systolic congestive heart failure exacerbation. 3. End-stage renal disease, hemodialysis dependent. 4. History of lupus. 5. History of automatic implantable cardioverter defibrillator placement. 6. Anemia of renal disease. 7. Hyperkalemia. Problems: Subjective 24 Hr Interval Summary Free Text/Dictation Patient complains of nausea and vomiting after hemodialysis, stated that she is not stable to go home today. Patient was hyperkalemia status post hemodialysis , cleared by Dr. Wilkerson for discharge. Blood pressure is at baseline. Exam/Review of Systems Vital Signs Vitals Vital Signs Date Time Temp Pulse Resp B/P Pulse Ox O2 Delivery O2 Flow Rate FiO2 10/30/16 16:13 90 10/30/16 16:06 98.1 20 152/93 96 Room Air Intake and Output 10/29/16 10/29/16 10/30/16 15:00 23:00 07:00 Intake Total 500 ml 700 ml 480 ml Output Total 2500 ml Balance -2000 ml 700 ml 480 ml Exam GENERAL: Well-developed, well-nourished female currently is awake, alert. HEENT: Head is atraumatic, normocephalic. NECK: Supple, no cervical lymphadenopathy, no thyromegaly. CHEST: Lungs slightly diminished at the bases. Clear in the upper lobes. The patient has a right chest permanent pacemaker. CARDIOVASCULAR: Normal S1, S2. No murmurs, gallops, clicks, rubs noted. ABDOMEN: Round, soft, nondistended, nontender. Bowel sounds present. EXTREMITIES: The patient has a left upper extremity atriovenous fistula with palpable thrill and audible bruit. Extremities no edema, clubbing, cyanosis. Pulses equal bilaterally 2+. SKIN: There is no rash or petechiae noted. NEUROLOGICAL: The patient is alert and oriented x4. Results Result Diagram: 10/30/16 0700 10/30/16 0700 Results 24 hrs Laboratory Tests Test 10/30/16 07:00 Anion Gap 22 H Basophils # 0.0 Basophils % 0.5 Blood Morphology Comment Blood Urea Nitrogen 40 H Calcium Level 9.7 Carbon Dioxide Level 26 Chloride Level 97 Cholesterol Level 217 H Cholesterol/HDL Ratio 3.4 Creatine Kinase 34 Creatine Kinase Index 2.9 Creatinine 8.46 H Creatinine Kinase MB (Mass) 1.00 Eosinophils # 0.2 Eosinophils % 2.8 Glucose Level 80 HDL Cholesterol 63 Hematocrit 32.0 L Hemoglobin 10.8 L LDL Cholesterol, Calculated 119 Lymphocytes # 1.6 Lymphocytes % 25.9 Mean Corpuscular Hemoglobin 35.9 H Mean Corpuscular Hemoglobin Concent 33.6 Mean Corpuscular Volume 106.8 H Mean Platelet Volume 10.1 Monocytes # 0.6 Monocytes % 10.4 Neutrophils # 3.7 Neutrophils % 60.4 Nucleated Red Blood Cells # 0.0 Nucleated Red Blood Cells % 0.0 Platelet Count 161 Potassium Level 6.2 *H Red Blood Count 3.00 L Red Cell Distribution Width 12.8 Sodium Level 139 Triglycerides Level 173 H Troponin I 0.058 White Blood Count 6.2 Medications Medications Current Medications Acetaminophen (Tylenol Tab) 650 mg Q6H PRN PO PAIN AND OR ELEVATED TEMP; Start 10/28/16 at 04:30 Ondansetron HCl (Zofran Inj) 4 mg Q6H PRN IV NAUSEA AND/OR VOMITING Last administered on 10/30/16 15:43; Admin Dose 4 MG; Start 10/28/16 at 04:30 Clonidine (Catapres) 0.1 mg Q4H PRN PO ELEVATED BLOOD PRESSURE Last administered on 10/28/16 10:00; Admin Dose 0.1 MG; Start 10/28/16 at 04:30 Hydralazine HCl (Apresoline) 10 mg Q4H PRN IV SBP>170; Start 10/28/16 at 12:00 Amlodipine Besylate (Norvasc) 5 mg BID PO Last administered on 10/30/16 08:33 ; Admin Dose 5 MG; Start 10/28/16 at 12:00 Carvedilol (Coreg) 25 mg BID PO Last administered on 10/30/16 08:34; Admin Dose 25 MG; Start 10/28/16 at 12:00 Cinacalcet (Sensipar) 60 mg DAILY PO Last administered on 10/30/16 08:32; Admin Dose 60 MG; Start 10/28/16 at 13:00 Cyclobenzaprine HCl (Flexeril) 10 mg TID PO Last administered on 10/30/16 08: 33; Admin Dose 10 MG; Start 10/28/16 at 13:00 Diphenhydramine HCl (Benadryl) 50 mg Q12H PRN PO ITCHING Last administered on 14:26; Admin Dose 50 MG; Start 10/28/16 at 12:00 Docusate Sodium (Colace) 100 mg BID PRN PO CONSTIPATION; Start 10/28/16 at 12: 00 Folic Acid (Folic Acid) 1 mg DAILY PO Last administered on 10/30/16 08:33; Admin Dose 1 MG; Start 10/29/16 at 09:00 Acetaminophen/ Hydrocodone Bitart ([place] (5/325)) 1 tab Q6H PRN PO PAIN Last administered on 10/28/16 20:31; Admin Dose 1 TAB; Start 10/28/16 at 12:00 Lanthanum Carbonate (Fosrenol) 500 mg TID PO Last administered on 10/30/16 08: 32; Admin Dose 500 MG; Start 10/28/16 at 13:00 Losartan Potassium (Cozaar) 50 mg DAILY PO Last administered on 10/30/16 08:33 ; Admin Dose 50 MG; Start 10/28/16 at 12:00 Pantoprazole (Protonix Tab) 40 mg DAILY@06 PO Last administered on 10/30/16 05 :35; Admin Dose 40 MG; Start 10/28/16 at 12:00 Diphenhydramine HCl (Benadryl) 25 mg Q6H PRN IV ITCHING Last administered on 12:43; Admin Dose 25 MG; Start 10/28/16 at 18:30 Morphine Sulfate (morphine) 2 mg Q6 PRN IV SEVERE PAIN LEVEL 7-10 Last administered on 10/30/16 09:43; Admin Dose 2 MG; Start 10/29/16 at 11:00 Lactulose (Enulose) 10 gm BID PRN PO CONSTIPATION; Start 10/29/16 at 11:30 Docusate Sodium (Colace) 100 mg BID PO Last administered on 10/30/16 08:32; Admin Dose 100 MG; Start 10/29/16 at 11:30 Hydralazine HCl (Apresoline) 50 mg Q8 PO Last administered on 10/30/16 15:46; Admin Dose 50 MG; Start 10/29/16 at 14:00 Senna (Senokot) 2 tab BID PO Last administered on 10/30/16 08:32; Admin Dose 2 TAB; Start 10/29/16 at 21:00 Polyethylene Glycol (Miralax) 17 gm DAILY PO Last administered on 10/30/16 15: 43; Admin Dose 17 GM; Start 10/30/16 at 14:00 Polyethylene Glycol (Miralax) 17 gm PRN PRN PO CONSTIPATION; Start 10/30/16 at 14:00 BENNY DYER Oct 30, 2016 17:35
[2016-10-31] MEDS: PANTOPRAZOLE (EC) 40 MG TAB PO SCH (05:13)
[2016-10-31 07:07] VITALS: BP 160/80; RESP 18
[2016-10-31 07:10] LABS: POTASSIUM 5.3 mmol/L (3.5-5.1)
[2016-10-31 07:13] LABS: CREATININE 7.48 mg/dl (0.44-1.00)
[2016-10-31 07:14] LABS: CALCIUM 9.4 mg/dl (8.4-10.2)
[2016-10-31] MEDS: SEVELAMER 800 MG TAB PO SCH (08:23)
[2016-10-31] MEDS: POLYETHYLENE GLYCOL 17 GM PACKET PO SCH (08:24)
[2016-10-31] MEDS: DOCUSATE SODIUM 100 MG CAP PO SCH (08:24)
[2016-10-31] MEDS: SENNA TAB PO SCH (08:24)
[2016-10-31] MEDS: CINACALCET 30 MG TAB PO SCH (08:24)
[2016-10-31] MEDS: LANTHANUM 500 MG CHEW PO SCH (08:24)
[2016-10-31] MEDS: FOLIC ACID 1 MG TAB PO SCH (08:24)
[2016-10-31] MEDS: AMLODIPINE 5 MG TAB PO SCH (08:25)
[2016-10-31] MEDS: LOSARTAN 50 MG TAB PO SCH (08:25)
[2016-10-31] MEDS: CYCLOBENZAPRINE 10 MG TAB PO SCH (08:26)
[2016-10-31] MEDS: DOCOSANOL 2 GM CREAM TOP SCH (08:26)
--- NOTE | 2016-10-31 09:36 | PN ---
Date/Time of Note Date/Time of Note DATE: 10/31/16 TIME: 09:35 Assessment/Plan VTE Prophylaxis VTE Prophylaxis Intervention: other Lines/Catheters [facility] Saline Lock Urinary Cath still in place: No Assessment/Plan Chief Complaint/Hosp Course 1. S/p hypertensive urgency. 2. Systolic congestive heart failure exacerbation. 3. End-stage renal disease, hemodialysis dependent. 4. History of lupus. 5. History of automatic implantable cardioverter defibrillator placement. 6. Anemia of renal disease. 7. Hyperkalemia. Problems: Subjective 24 Hr Interval Summary Free Text/Dictation Patient has no complaints Exam/Review of Systems Vital Signs Vitals Vital Signs Date Time Temp Pulse Resp B/P Pulse Ox O2 Delivery O2 Flow Rate FiO2 10/31/16 07:07 98.2 78 18 160/80 97 10/30/16 16:06 Room Air Intake and Output 10/30/16 10/30/16 10/31/16 15:00 23:00 07:00 Intake Total 800 ml 240 ml Output Total 2500 ml Balance -1700 ml 240 ml Exam Constitutional: well developed Head: atraumatic, normocephalic Neck: supple Respiratory: clear to auscultation Cardiovascular: regular rate and rhythm Gastrointestinal: non-tender, soft Results Result Diagram: 10/30/16 0700 10/31/16 0526 Results 24 hrs Laboratory Tests Test 10/31/16 05:26 Anion Gap 20 H Blood Urea Nitrogen 30 H Calcium Level 9.4 Carbon Dioxide Level 31 Chloride Level 95 L Creatinine 7.48 H Glucose Level 84 Potassium Level 5.3 H Sodium Level 141 Medications Medications Current Medications Acetaminophen (Tylenol Tab) 650 mg Q6H PRN PO PAIN AND OR ELEVATED TEMP; Start 10/28/16 at 04:30 Ondansetron HCl (Zofran Inj) 4 mg Q6H PRN IV NAUSEA AND/OR VOMITING Last administered on 10/30/16 15:43; Admin Dose 4 MG; Start 10/28/16 at 04:30 Clonidine (Catapres) 0.1 mg Q4H PRN PO ELEVATED BLOOD PRESSURE Last administered on 10/28/16 10:00; Admin Dose 0.1 MG; Start 10/28/16 at 04:30 Hydralazine HCl (Apresoline) 10 mg Q4H PRN IV SBP>170; Start 10/28/16 at 12:00 Amlodipine Besylate (Norvasc) 5 mg BID PO Last administered on 10/31/16 08:25 ; Admin Dose 5 MG; Start 10/28/16 at 12:00 Carvedilol (Coreg) 25 mg BID PO Last administered on 10/31/16 08:26; Admin Dose 25 MG; Start 10/28/16 at 12:00 Cinacalcet (Sensipar) 60 mg DAILY PO Last administered on 10/31/16 08:24; Admin Dose 60 MG; Start 10/28/16 at 13:00 Cyclobenzaprine HCl (Flexeril) 10 mg TID PO Last administered on 10/31/16 08: 26; Admin Dose 10 MG; Start 10/28/16 at 13:00 Diphenhydramine HCl (Benadryl) 50 mg Q12H PRN PO ITCHING Last administered on 14:26; Admin Dose 50 MG; Start 10/28/16 at 12:00 Docusate Sodium (Colace) 100 mg BID PRN PO CONSTIPATION; Start 10/28/16 at 12: 00 Folic Acid (Folic Acid) 1 mg DAILY PO Last administered on 10/31/16 08:24; Admin Dose 1 MG; Start 10/29/16 at 09:00 Acetaminophen/ Hydrocodone Bitart ([place] (5/325)) 1 tab Q6H PRN PO PAIN Last administered on 10/28/16 20:31; Admin Dose 1 TAB; Start 10/28/16 at 12:00 Lanthanum Carbonate (Fosrenol) 500 mg TID PO Last administered on 10/31/16 08: 24; Admin Dose 500 MG; Start 10/28/16 at 13:00 Losartan Potassium (Cozaar) 50 mg DAILY PO Last administered on 10/31/16 08:25 ; Admin Dose 50 MG; Start 10/28/16 at 12:00 Pantoprazole (Protonix Tab) 40 mg DAILY@06 PO Last administered on 10/31/16 05 :13; Admin Dose 40 MG; Start 10/28/16 at 12:00 Diphenhydramine HCl (Benadryl) 25 mg Q6H PRN IV ITCHING Last administered on 20:58; Admin Dose 25 MG; Start 10/28/16 at 18:30 Morphine Sulfate (morphine) 2 mg Q6 PRN IV SEVERE PAIN LEVEL 7-10 Last administered on 10/30/16 09:43; Admin Dose 2 MG; Start 10/29/16 at 11:00 Lactulose (Enulose) 10 gm BID PRN PO CONSTIPATION; Start 10/29/16 at 11:30 Docusate Sodium (Colace) 100 mg BID PO Last administered on 10/31/16 08:24; Admin Dose 100 MG; Start 10/29/16 at 11:30 Hydralazine HCl (Apresoline) 50 mg Q8 PO Last administered on 10/30/16 15:46; Admin Dose 50 MG; Start 10/29/16 at 14:00 Senna (Senokot) 2 tab BID PO Last administered on 10/31/16 08:24; Admin Dose 2 TAB; Start 10/29/16 at 21:00 Polyethylene Glycol (Miralax) 17 gm DAILY PO Last administered on 10/31/16 08: 24; Admin Dose 17 GM; Start 10/30/16 at 14:00 Polyethylene Glycol (Miralax) 17 gm PRN PRN PO CONSTIPATION; Start 10/30/16 at 14:00 MIKE GROVER Oct 31, 2016 09:36
[2016-10-31] MEDS ORDERED: NA POLYST SULFON 15 GM/60 ML BTL PO ONE (10:00)
--- NOTE | 2016-11-01 19:05 | DS ---
DATE OF ADMISSION: 10/28/2016 DATE OF DISCHARGE: 10/31/2016 FINAL DIAGNOSES: 1. Status post hypertensive urgency. 2. Systolic congestive heart failure exacerbation. 3. Endstage renal disease, hemodialysis dependent. 4. History of lupus. 5. History of automatic implantable cardioverter defibrillator. 6. Anemia of renal disease. 7. Hyperkalemia. 8. History of poor medical compliance. BRIEF HISTORY: The patient is a 46-year-old female with past medical history positive for endstage renal disease, hemodialysis dependent. The patient also with history of ischemic cardiomyopathy, co ronary artery disease, hypertension, lupus, and dyslipidemia. The patient presented to the emergenc y room and noted to have blood pressure being 200/99. The patient was admitted for further evaluati on and management. The patient was also found to have elevated potassium of 5.7. The patient was g iven hydralazine, Benadryl, and ____ with some improvement in symptoms and admitted for further eval uation and management. HOSPITAL COURSE: The patient was followed by Dr. Ayala and Dr. Wilkerson in nephrology consultation. The patient underwent hemodialysis. The [facility] The patient continued on Norvasc, hydralazine, and Cozaar. The patient did not have any jeremie kocytosis, no fever. The patient's condition improved. Blood pressure was stable and patient was c leared by Dr. Wilkerson for discharge. The patient has hyperkalemia; however, was dialyzed. The patien t's condition improved and patient was discharged home. CONDITION ON DISCHARGE: Hemodynamically stable. ACTIVITY: As patient tolerates. DIET: Renal diet. DISCHARGE MEDICATIONS: 1. Norvasc. 2. Coreg. 3. Sensipar. 4. Cyclobenzaprine. 5. Benadryl. 6. Colace. 7. Folic acid. 8. Hydralazine. 9. [place]. 10. Fosrenol. 11. Cozaar 12. Protonix. 13. Renvela. Interdisciplinary plan of care was established for this patient. Plan of care was discussed with Dr Bisi James. Dictated By: BENNY DYER TEMPERING OVEN OPERATOR for DIONI JAMES MD SR/LUAN Conf#: [id number] DID#: [id number]
== END 2016-10-31 10:30 | disposition home or self-care (01) | DRG 291 ==
LOC: E/R 22:11 → TEL 10-28 03:07
PROVIDERS: ADMIT Internal Medicine; ATTEND Internal Medicine
PROC: 5A1D60Z (ICD-10-PCS; principal; 2016-10-28)
DX: I13.2 Hypertensive heart and chronic kidney disease with heart failure and with stage 5 chronic kidney disease, or end stage renal disease (principal); N18.6 End stage renal disease; I50.23 Acute on chronic systolic (congestive) heart failure; I16.0 Hypertensive urgency; E87.5 Hyperkalemia; Z95.0 Presence of cardiac pacemaker; Z91.19 Patient's noncompliance with other medical treatment and regimen; D63.1 Anemia in chronic kidney disease; Z99.2 Dependence on renal dialysis
CPT/HCPCS: 36415; 71010; 80048; 80053; 80061; 82550; 82553; 83880; 84484; 85025; 85610; 85730; 87081; 90935; 93005; 93306; 96374; 96375; 96376; J0360; J1200; J2270; J2405

== ENCOUNTER 2016-11-29 18:44 | Emergency (ER) | END 2016-11-30 04:27 | disposition left against medical advice (07) | DX: R06.02 Shortness of breath (principal); I12.0 Hypertensive chronic kidney disease with stage 5 chronic kidney disease or end stage renal disease; N18.6 End stage renal disease; I25.10 Atherosclerotic heart disease of native coronary artery without angina pectoris; I50.9 Heart failure, unspecified; Z95.0 Presence of cardiac pacemaker | CPT/HCPCS: 71010; 80053; 83880; 84484; 85025; 85610; 85730; 93005; J0360; J1885; J1940 ==

== ENCOUNTER 2016-12-08 08:30 | Emergency (ER) | payer MEDICARE, OTHER ==
[~2016-12-08] VITALS: Ht 160 cm; Wt 68.5 kg
[~2016-12-08 08:30] MED LIST changes: -MUPI22OI29 TOP
[2016-12-08 08:42] VITALS: Ht 160 cm; Wt 68.5 kg
[2016-12-08] MEDS ORDERED: morphine 4 MG/ML VIAL IV STA (09:02)
[2016-12-08] MEDS ORDERED: ONDANSETRON 4 MG INJ IV STA (09:02)
[2016-12-08] MEDS ORDERED: ALBUTEROL 0.083% (NEB) 2.5 MG/3 ML AMP NEB STA ×2 (09:05→10:54)
[2016-12-08] MEDS ORDERED: IPRATROPIUM (NEB) 0.5 MG/2.5 ML AMP NEB STA ×2 (09:05→10:54)
[2016-12-08] MEDS ORDERED: METHYLPREDNISOLONE 125 MG INJ IV STA (09:05)
[2016-12-08] MEDS ORDERED: hydrALAzine 20 MG INJ IV ONE (09:30)
[2016-12-08 09:59] LABS: ADD SCAN DIFF NO
[2016-12-08 10:03] LABS: BASOPHIL # 0.1 10^3/ul (0.0-0.1); EOSINOPHILS # 0.3 10^3/ul (0.0-0.5); EOSINOPHILS % 3.9 % (0.0-7.0); HEMATOCRIT 29.6 % (37.0-47.0); HEMOGLOBIN 9.7 g/dl (12.0-16.0); LYMPHOCYTES # 1.1 10^3/ul (0.8-2.9); LYMPHOCYTES % 16.4 % (15.0-51.0); MEAN CORPUSCULAR HEMOGLOBIN 36.6 pg (29.0-33.0); MEAN CORPUSCULAR HGB CONC 32.8 g/dl (32.0-37.0); MEAN CORPUSCULAR VOLUME 111.7 fl (82.0-101.0); MEAN PLATELET VOLUME 11.1 fl (7.4-10.4); MONOCYTE # 0.5 10^3/ul (0.3-0.9); MONOCYTES % 7.3 % (0.0-11.0); PLATELET COUNT 240 10^3/UL (140-415); RED BLOOD COUNT 2.65 10^6/ul (4.20-5.40); RED CELL DISTRIBUTION WIDTH 14.5 % (11.5-14.5)
[2016-12-08 10:14] LABS: INR 0.87; PROTIME 11.8 Sec (12.2-14.2); PT RATIO 0.9
[2016-12-08 10:15] LABS: ALBUMIN 4.1 g/dl (3.3-4.9); PARTIAL THROMBOPLASTIN TIME 33.4 Sec (25.0-35.0)
[2016-12-08 10:18] LABS: ALBUMIN/GLOBULIN RATIO 0.83; CREATININE 9.57 mg/dl (0.44-1.00)
[2016-12-08 10:19] LABS: CALCIUM 10.4 mg/dl (8.4-10.2)
--- NOTE | 2016-12-08 10:53 | ERD ---
ER Documentation Chief Complaint Date/Time DATE: 12/08/16 TIME: 10:48 Chief Complaint COUGHING & CONGESTION X1MTH, ON DIALYSIS HPI This is a 46-year-old female with a known history of end-stage renal disease on hemodialysis every Wednesday and Wednesday. The patient had a full run of dialysis yesterday. 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 Tessa Simpson. The patient indicates that over the past month she has been experiencing a productive cough with whitish sputum. She was seen in the emergency department at [facility] on November 29, 2016, 9 days prior to arrival for similar symptoms. She had a chest radiograph that showed mild pulmonary vascular congestion. The patient indicates that the cough has not improved. She has a history of chronic back pain but denies any worsening of her mid and lower back pain. She denies any saddle anesthesia. She denies any fever shaking or chills. She denies any changes in her bladder or bowel frequency. She has not been on any antibiotics. She does not smoke cigarettes. She denies any chest pain or pressure that radiates to the neck arm back or jaw. The patient has a history of hypertension but indicates she did not take her antihypertensive medications prior to arrival as she forgot. ROS All systems reviewed and are negative except as per history of present illness. Medications Home Meds Active Scripts Hydrocodone/Acetaminophen (Glide 5-325 Tablet) 1 Each Tablet, 1 TAB PO Q6H Y for PAIN, #20 TAB Prov:MARS CARTER PA-C 10/19/16 Cyclobenzaprine Hcl* (Cyclobenzaprine Hcl*) 10 Mg Tablet, 10 MG PO TID, #15 TAB Prov:MARS CARTER PA-C 09/30/16 Carvedilol* (Coreg*) 25 Mg Tab, 25 MG PO BID for 30 Days, TAB Prov:REMI SIMPSON MD 12/26/15 Reported Medications Sevelamer Carbonate* (Renvela*) 800 Mg Tablet, 0.8 GM PO WITH MEALS, TAB 2 TABS TID WITH MEALS 10/07/16 Amlodipine Besylate* (Norvasc*) 5 Mg Tablet, 5 MG PO BID, TAB 10/06/16 Cinacalcet* (Sensipar*) 60 Mg Tablet, 60 MG PO DAILY, TAB 10/06/16 Diphenhydramine Hcl* (Benadryl*) 50 Mg Cap, 50 MG PO Q12 Y for ITCHING, CAP 10/06/16 Docusate Sodium* (Doc-Q-Lace*) 100 Mg Capsule, 100 MG PO BID Y for CONSTIPATION , CAP 10/06/16 Folic Acid* (Folic Acid*) 1 Mg Tablet, 1 MG PO DAILY, TAB 10/06/16 Hydralazine Hcl* (Apresoline*) 50 Mg Tab, 50 MG PO DAILY, #30 TAB 10/06/16 Pantoprazole* (Pantoprazole*) 40 Mg Tablet.dr, 40 MG PO DAILY, TAB 12/22/15 Lanthanum Carbonate* (Fosrenol*) 500 Mg Tab.chew, 500 MG PO TID, TAB.CHEW WITH MEALS 01/11/15 Losartan Potassium* (Losartan Potassium*) 50 Mg Tablet, 50 MG PO DAILY, TAB 09/26/14 Allergies Allergies: Coded Allergies: valacyclovir (Verified Allergy, Mild, 10/29/16) per pt she has nightmares and hallucinations PMhx/Soc History of Surgery: Yes (SPLEEN SURGERY;AV SHUNT PLACEMENT ;PACEMAKER;) Anesthesia Reaction: No Hx Neurological Disorder: No Hx Respiratory Disorders: No Hx Cardiac Disorders: Yes (HTN,CAD,CHF,DYSLIPIDEMIA,IXCHEMIC CARDIOMYOPATHY;) Hx Psychiatric Problems: Yes (ANXIETY;) Hx Miscellaneous Medical Probl: No Hx Alcohol Use: No Hx Substance Use: No Hx Tobacco Use: No Physical Exam Vitals Vital Signs Date Time Temp Pulse Resp B/P Pulse Ox O2 Delivery O2 Flow Rate FiO2 12/08/16 11:14 89 20 96 21 12/08/16 09:44 85 20 96 21 12/08/16 08:42 96.9 86 22 220/109 100 Physical Exam Constitutional:Well-developed. Well-nourished. HEENT:Normocephalic. Atraumatic.Pupils were equal round reactive to light. Moist mucous membranes.No tonsillar exudates. Endoscopy exam showed sharp optic disc bilaterally venous pulsations were present Neck: No nuchal rigidity. No lymphadenopathy. No posterior cervical spine tenderness or step-offs. Respiratory: Not using accessory muscles of respiration.Lungs were clear to auscultation bilaterally. No rhonchi. No rales. Wheezing on and inspiration with no stridor. Cardiovascular: Regular rate regular rhythm.No murmurs. No rubs were appreciated.S1, S2 normal. Distal pulses are palpable 2+ bilaterally. GI: Abdomen was soft. Nontender. Non Distended. No pulsatile abdominal masses or bruits. No rebound. No guarding. Bowel sounds were present and normal. Muscle skeletal: Full range of motion of both the upper and lower extremities bilaterally.Normal muscle tone.No assymetrical calf tenderness or swelling. Skin: No petechia, no purpura. No lesions on the palms or the soles of the feet. No maculopapular rash. Positive thrill and bruit of the left upper extremity NEURO: Patient was alert, awake, orientated x3.No facial droop. Gait observed and normal with no ataxia.Speech had regular rate and rhythm. No focal neurological deficits. Result Diagram: 12/08/1640 12/08/16 0940 Results 24 hrs Laboratory Tests Test 12/08/16 09:40 White Blood Count 7.010^3/ul Red Blood Count 2.6510^6/ul Hemoglobin 9.7g/dl Hematocrit 29.6% Mean Corpuscular Volume 111.7fl Mean Corpuscular Hemoglobin 36.6pg Mean Corpuscular Hemoglobin Concent 32.8g/dl Red Cell Distribution Width 14.5% Platelet Count 34014^3/UL Mean Platelet Volume 11.1fl Neutrophils % 71.0% Lymphocytes % 16.4% Monocytes % 7.3% Eosinophils % 3.9% Basophils % 1.0% Nucleated Red Blood Cells % 0.0/100WBC Neutrophils # 5.010^3/ul Lymphocytes # 1.110^3/ul Monocytes # 0.510^3/ul Eosinophils # 0.310^3/ul Basophils # 0.110^3/ul Nucleated Red Blood Cells # 0.010^3/ul Prothrombin Time 11.8Sec Prothrombin Time Ratio 0.9 INR International Normalized Ratio 0.87 Activated Partial Thromboplast Time 33.4Sec Sodium Level 138mmol/L Potassium Level 5.0mmol/L Chloride Level 100mmol/L Carbon Dioxide Level 23mmol/L Anion Gap 20 Blood Urea Nitrogen 54mg/dl Creatinine 9.57mg/dl Glucose Level 115mg/dl Calcium Level 10.4mg/dl Total Bilirubin 0.0mg/dl Direct Bilirubin 0.00mg/dl Indirect Bilirubin 0.0mg/dl Aspartate Amino Transf (AST/SGOT) 32IU/L Alanine Aminotransferase (ALT/SGPT) 38IU/L Alkaline Phosphatase 249IU/L Total Protein 9.0g/dl Albumin 4.1g/dl Globulin 4.90g/dl Albumin/Globulin Ratio 0.83 Current Medications Medications (Trade) Dose Ordered Sig/Halie Route PRN Reason Start Time Stop Time Status Last Admin Dose Admin Morphine Sulfate (morphine) 4 mg ONCE STAT IV 12/08/16 09:02 12/08/16 09:04 DC 12/08/16 10:20 Ondansetron HCl (Zofran Inj) 4 mg ONCE STAT IV 12/08/16 09:02 12/08/16 09:04 DC 12/08/16 10:20 Albuterol (Proventil 0.083% (Neb)) 5 mg ONCE STAT NEB 12/08/16 09:05 12/08/16 09:07 DC 12/08/16 09:42 Ipratropium [place] (Atrovent 0.02% (Neb)) 0.5 mg ONCE STAT NEB 12/08/16 09:05 12/08/16 09:07 DC 12/08/16 09:42 Methylprednisolone Sodium Succinate (Solu-Medrol) 125 mg ONCE STAT IV 12/08/16 09:05 12/08/16 09:07 DC 12/08/16 10:20 Hydralazine HCl (Apresoline) 10 mg ONCE ONCE IV 12/08/16 09:30 12/08/16 09:31 DC 12/08/16 10:20 Albuterol (Proventil 0.083% (Neb)) 5 mg ONCE STAT NEB 12/08/16 10:54 12/08/16 10:57 DC 12/08/16 11:17 Ipratropium [place] (Atrovent 0.02% (Neb)) 0.5 mg ONCE STAT NEB 12/08/16 10:54 12/08/16 10:57 DC 12/08/16 11:17 Diphenhydramine HCl (Benadryl) 50 mg ONCE ONCE IV 12/08/16 11:30 12/08/16 11:34 DC Procedures/MDM The patient presented to the emergency department with a productive cough that has been present for over one month. The patient had ancillary laboratory work that showed no leukocytosis. I reviewed the chest radiograph taken on November that showed mild pulmonary vascular congestion. Today I felt it was necessary to obtain a CT scan of the chest to rule out an infiltrate could suggest pneumonia due to the persistent cough. The patient has no tuberculosis risk factors. This patient also presented to the emergency department with severely elevated blood pressure however the patient had not taken her antihypertensive Medicaid. My differential diagnosis included but was not limited to conditions that could end-organ damage such as acute coronary syndrome, acute pulmonary edema, aortic dissection, subarachnoid hemorrhage, intracerebral hemorrhage, cerebral infarction, withdrawal syndromes from beta blockers, or states of catecholamine excess such as pheochromocytoma or drug intoxication. Ancillary lab work was obtained. There was no elevation in the BUN and creatinine to suggest acute renal failure. Electrolytes were normal. Cardiac enzyme was normal and the 12 lead EKG showed no acute ischemic changes but there was known left ventricular hypertrophy. 12 Lead EKG tracing ordered and reviewed by myself showed: Normal sinus rhythm of 78 bpm and no arrhythmia. UT interval normal. QRS duration normal. No ST segment elevation. Left ventricular hypertrophy. No ST segment depression. No changes consistent with acute ischemia. The patient's respiratory distress improved with a nebulizer treatment of albuterol Atrovent. He was also given 125 mg of Solu-Medrol due to the increased mucus production. Also obtained a CT scan of the patient's chest which indicated the following is this was reviewed by the radiologist: 1. Stable chronic tiny benign inflammatory calcified and noncalcified granulomata within the lungs. 2. No mass, lymphadenopathy, or focal acute pulmonary infiltrate is identified. 3. Normal size heart with a small circumferential pericardial effusion. 4. Shrunken atrophic [place] kidneys. 5. Bony sclerosis consistent with renal osteodystrophy. Given that the patient had an absence of cerebral, ocular, cardiac or renal damage the hypertensive urgency was treated with IV hydralazine in the emergency room with improvement of the patient's blood pressure. The patient likely appeared to be complaint with primary care physician and will follow up with their PCP in the next 24-48 hours. They were instructed to return to the emergency department at anytime if there is any worsening of their condition such as development of chest pain or a headache. They were instructed to resume previous medication regimen or initiate a suitable medication regimen under care of the PCP to enable proper monitoring for drug reactions. The patient was also informed on the adverse side effects and adverse drug interactions of the medications prescribed to them by myself. The patient gave informed consent to the prescription of the new medication. Patient felt comfortable being discharged home she has a known history of chronic kidney disease but is undergoing dialysis tomorrow. Her BUN was 54 creatinine was 9.57 and her potassium was normal. The patient also stated she would like a short course of antibiotics for treatment of a cough given that has been persistent for 1 month. Indicated that this is likely result of a viral etiology but she will be sent home with azithromycin to treat suspected acute bronchitis Departure Diagnosis: Primary Impression: Cough Additional Impressions: Hypertensive urgency Acute bronchitis Bronchitis organism: unspecified organism Qualified Code: J20.9 - Acute bronchitis, unspecified organism Condition: [place] SCHUSTER Dec 08, 2016 10:53
--- NOTE | 2016-12-08 10:59 | RADRPT ---
PROCEDURE: CT Chest without contrast. CLINICAL INDICATION: Cough and fever and chills. TECHNIQUE: CT scan of the chest without contrast was performed on a multidetector high-resolution CT scanner. Coronal and sagittal reformatted images were obtained from the axial source images. The total exam CTDI equals 10.06 mGy and the total exam DLP equals 382.12 mGy-cm. One or more of the following dose reduction techniques were used: - Automated exposure control. - Adjustment of the mA and/or kV according to patient size. - Use of iterative reconstruction technique. COMPARISON: Chest x-ray dated 11/29/2016; CT scan chest dated 01/21/2013 FINDINGS: The lungs are clear. Benign calcified granuloma is seen in the posteromedial right lower lung. No f ocal opacification, effusion, pneumothorax, edema, or nodules are seen. There is no pulmonary infil trate. Scattered tiny inflammatory micronodules are seen, too small to characterize and benign in a ppearance. Small benign bleb is seen in the anterolateral periphery of the superior segment of the left lower lung. No mass lesion to suggest neoplasm is identified. The central tracheobronchial radha e is clear. Of note, pulmonary edema was seen throughout the lungs on the older prior CT scan which is not present on the current scan. The mediastinum is unremarkable without evidence for mass or lymphadenopathy. The vascular structur es of the mediastinum are normal in course and caliber. Aortic vascular calcifications and coronary artery calcifications are present. The heart size is normal with a small circumferential pericardi al effusion. Pacemaker wire is seen in place. The axillary regions, subpectoral regions, and supraclavicular regions are all unremarkable. The mahan rrounding chest wall is unremarkable. Pacemaker pulse generator is seen in the right upper chest ant erior subcutaneous soft tissues. Imaging obtained through the upper abdomen reveals no acute abnorm ality. The kidneys are shrunken and atrophic bilaterally. The adrenal glands are symmetrically unr emarkable. The surrounding osseous structures are remarkable for bony sclerosis, likely secondary t o renal osteodystrophy. No osteolytic or osteoblastic lesion is detected. IMPRESSION: 1. Stable chronic tiny benign inflammatory calcified and noncalcified granulomata within the lungs. 2. No mass, lymphadenopathy, or focal acute pulmonary infiltrate is identified. 3. Normal size heart with a small circumferential pericardial effusion. 4. Shrunken atrophic [place] kidneys. 5. Bony sclerosis consistent with renal osteodystrophy. RPTAT: HMJB .Raymon Stubbs MD, Date Time Electronically viewed and signed by .Raymon Stubbs MD, MD on 12/08/2016 10:59 .B/
[2016-12-08] MEDS ORDERED: DIPHENHYDRAMINE 50 MG INJ IV ONE (11:30)
[2016-12-08] MEDS ORDERED: ALBU8.5H3 INH (11:52)
[2016-12-08] MEDS ORDERED: BENZ100C70 PO (11:52)
[2016-12-08] MEDS ORDERED: AZIT250T94 PO (11:52)
[2016-12-08 12:04] VITALS: BP 155/78; PULSE 71; RESP 18; TEMP 98.5
== END 2016-12-08 12:14 | disposition home or self-care (01) ==
LOC: E/R 08:30
DX: R05 Cough (principal); I16.0 Hypertensive urgency; J20.9 Acute bronchitis, unspecified; I50.9 Heart failure, unspecified; I25.10 Atherosclerotic heart disease of native coronary artery without angina pectoris; I12.0 Hypertensive chronic kidney disease with stage 5 chronic kidney disease or end stage renal disease; N18.6 End stage renal disease; R40.2142 Coma scale, eyes open, spontaneous, at arrival to emergency department; R40.2252 Coma scale, best verbal response, oriented, at arrival to emergency department; R40.2362 Coma scale, best motor response, obeys commands, at arrival to emergency department; Z95.0 Presence of cardiac pacemaker
CPT/HCPCS: 71250; 80053; 85025; 85610; 85730; 93005; 94640; 94664; 96374; 96375; 99285; J0360; J1200; J2270; J2405; J2930

== ENCOUNTER 2017-03-11 17:27 | Inpatient (IN) | payer MEDICARE, OTHER ==
[~2017-03-11] VITALS: Ht 160 cm; Wt 66.0 kg
[~2017-03-11 17:27] MED LIST changes: +ALBU8.5H3 INH; +AZIT250T94 PO; +BENZ100C70 PO
[2017-03-11] MEDS ORDERED: ONDANSETRON (ODT) 4 MG TAB ODT STA (17:58)
[2017-03-11] MEDS ORDERED: HYDROCODONE/APAP (10/325) TAB PO ONE (18:00)
[2017-03-11] MEDS ORDERED: NICARDipine HCL 30 MG CAPSULE PO ONE (18:00)
[2017-03-11 18:10] LABS: BASOPHILS % 0.5 % (0.0-2.0); EOSINOPHILS # 0.1 10^3/ul (0.0-0.5); EOSINOPHILS % 1.1 % (0.0-7.0); HEMATOCRIT 33.4 % (37.0-47.0); HEMOGLOBIN 11.3 g/dl (12.0-16.0); LYMPHOCYTES # 2.1 10^3/ul (0.8-2.9); LYMPHOCYTES % 26.4 % (15.0-51.0); MEAN CORPUSCULAR HEMOGLOBIN 35.9 pg (29.0-33.0); MEAN CORPUSCULAR HGB CONC 33.8 g/dl (32.0-37.0); MEAN PLATELET VOLUME 11.4 fl (7.4-10.4); MONOCYTE # 0.7 10^3/ul (0.3-0.9); MONOCYTES % 8.2 % (0.0-11.0); NEUTROPHIL # 5.1 10^3/ul (1.6-7.5); NEUTROPHILS % 63.4 % (39.0-77.0); PLATELET COUNT 231 10^3/UL (140-415); RED BLOOD COUNT 3.15 10^6/ul (4.20-5.40); WHITE BLOOD COUNT 8.1 10^3/ul (4.8-10.8)
[2017-03-11 18:28] LABS: INR 0.89; PT RATIO 0.9
[2017-03-11 18:35] LABS: CALCIUM 10.6 mg/dl (8.4-10.2); CREATININE 8.56 mg/dl (0.44-1.00); POTASSIUM 4.5 mmol/L (3.5-5.1)
--- NOTE | 2017-03-11 18:44 | RADRPT ---
PROCEDURE: XR Chest. CLINICAL INDICATION: Chest pain, shortness of breath TECHNIQUE: AP view of the chest was obtained. COMPARISON: 11/29/2016 FINDINGS: Cardiac silhouette remains mild - moderately enlarged. Right-sided single lead pacer remains in elisa ce. There is pulmonary vascular congestion. No focal consolidation, pleural effusion or pneumotho rax is identified. Visualized osseous structures appear intact. IMPRESSION: Cardiomegaly, with pulmonary vascular congestion. RPTAT: HESO .Juan R Matos MD, Date Time Electronically viewed and signed by .Juan R Matos MD, on 03/11/2017 18:43 .O/
[2017-03-11 18:49] LABS: TROPONIN-I 0.164 ng/ml (0.00-0.12)
[2017-03-11] MEDS ORDERED: NITROGLYCERIN 2% 1 GM OINT PKT TD STA (18:55)
[2017-03-11] MEDS ORDERED: ASPIRIN 81 MG TAB PO ONE (19:00)
[2017-03-11] MEDS ORDERED: LABETALOL HCL 20MG INJ IV ONE (19:00)
[2017-03-11] MEDS ORDERED: ONDANSETRON 4 MG INJ IV PRN (19:00)
[2017-03-11] MEDS ORDERED: NITROGLYCERIN (SL) 0.4 MG TAB SL PRN (19:00)
[2017-03-11] MEDS ORDERED: ACETAMINOPHEN 325 MG TAB PO PRN ×2 (19:00→21:30)
--- NOTE | 2017-03-11 20:30 | ERA ---
ER Documentation Chief Complaint Date/Time DATE: 03/11/17 TIME: 20:25 Chief Complaint Complains of back pain, SOB and facial swelling Hx of Dialysis HPI Patient is a 46-year-old female with dialysis, hypertension, and CHF who presents with hand and face swelling. She said that she had dialysis yesterday and they removed 1.5 L but they usually removed 3-4 L. She has shortness of breath and chest pain as well as feeling her heart racing. Upon review of old medical record she has multiple visits to the ER for various complaints. She says that her primary doctor is Dr. Simpson and her professor of communication arts is Dr. Spencer. She has had no treatment as of yet. She is also complaining of postherpetic neuralgia on the left side. ROS All systems reviewed and are negative except as per history of present illness. Medications Home Meds Active Scripts Hydrocodone/Acetaminophen (Mims 5-325 Tablet) 1 Each Tablet, 1 TAB PO Q6H Y for PAIN, #20 TAB Prov:MARS CARTER PA-C 10/19/16 Carvedilol* (Coreg*) 25 Mg Tab, 25 MG PO BID for 30 Days, TAB Prov:REMI SIMPSON MD 12/26/15 Reported Medications Sevelamer Carbonate* (Renvela*) 800 Mg Tablet, 0.8 GM PO WITH MEALS, TAB 2 TABS TID WITH MEALS 10/07/16 Amlodipine Besylate* (Norvasc*) 5 Mg Tablet, 5 MG PO BID, TAB 10/06/16 Cinacalcet* (Sensipar*) 60 Mg Tablet, 60 MG PO DAILY, TAB 10/06/16 Diphenhydramine Hcl* (Benadryl*) 50 Mg Cap, 50 MG PO Q12 Y for ITCHING, CAP 10/06/16 Docusate Sodium* (Doc-Q-Lace*) 100 Mg Capsule, 100 MG PO BID Y for CONSTIPATION , CAP 10/06/16 Folic Acid* (Folic Acid*) 1 Mg Tablet, 1 MG PO DAILY, TAB 10/06/16 Hydralazine Hcl* (Apresoline*) 50 Mg Tab, 50 MG PO DAILY, #30 TAB 10/06/16 Pantoprazole* (Pantoprazole*) 40 Mg Tablet.dr 40 MG PO DAILY, TAB 12/22/15 Lanthanum Carbonate* (Fosrenol*) 500 Mg Tab.chew, 500 MG PO TID, TAB.CHEW WITH MEALS 01/11/15 Losartan Potassium* (Losartan Potassium*) 50 Mg Tablet, 50 MG PO DAILY, TAB 09/26/14 Discontinued Scripts Albuterol Sulfate* (Proair HFA*) 8.5 Gm Hfa.aer.ad, 2 PUFF INH Q4H Y for WHEEZING AND SOB, #1 INHALER Prov:MARIELYANA 12/08/16 Benzonatate* (Tessalon Perle*) 100 Mg Capsule, 100 MG PO Q8H Y for COUGH, #20 CAP Prov:MARIELYANA 12/08/16 Azithromycin* (Zithromax*) 250 Mg Tablet, 250 MG PO .ZPACK DIRECTED, #6 TAB TAKE 500 MG (2 TABS) THE FIRST DAY THEN 250 MG (1 TAB) DAYS 2-5 Prov:JUSTIN SCHUSTERA 12/08/16 Cyclobenzaprine Hcl* (Cyclobenzaprine Hcl*) 10 Mg Tablet, 10 MG PO TID, #15 TAB Prov:MARS CARTER PA-C 09/30/16 Allergies Allergies: Coded Allergies: valacyclovir (Verified Allergy, Mild, 03/11/17) per pt she has nightmares and hallucinations PMhx/Soc History of Surgery: Yes (Spleen Surgery, Bilateral AV Fistula, AICD) Anesthesia Reaction: No Hx Neurological Disorder: No Hx Respiratory Disorders: No Hx Cardiac Disorders: Yes (HTN,CAD,CHF,DYSLIPIDEMIA,IXCHEMIC CARDIOMYOPATHY;) Hx Psychiatric Problems: Yes (ANXIETY;) Hx Miscellaneous Medical Probl: No Hx Alcohol Use: No Hx Substance Use: No Hx Tobacco Use: No Smoking Status: Never smoker FmHx Family History: diabetes Physical Exam Vitals Vital Signs Date Time Temp Pulse Resp B/P Pulse Ox O2 Delivery O2 Flow Rate FiO2 03/11/17 18:02 0 03/11/17 17:35 98.5 95 20 221/110 99 Physical Exam Const: Mild distress secondary to pain Head: Atraumatic Eyes: Normal Conjunctiva ENT: Normal External Ears, Nose and Mouth. Neck: Full range of motion..~ No meningismus. Resp: Clear to auscultation bilaterally Cardio: Regular rate and rhythm, no murmurs Abd: Soft, non tender, non distended. Normal bowel sounds Skin: No petechiae or rashes Back: No midline or flank tenderness Ext: Mild swelling to the hands bilaterally Neur: Awake and alert Psych: Normal Mood and Affect Result Diagram: 03/11/175 03/11/171754 Results 24 hrs Laboratory Tests Test 03/11/17 17:55 White Blood Count 8.110^3/ul Red Blood Count 3.1510^6/ul Hemoglobin 11.3g/dl Hematocrit 33.4% Mean Corpuscular Volume 106.0fl Mean Corpuscular Hemoglobin 35.9pg Mean Corpuscular Hemoglobin Concent 33.8g/dl Red Cell Distribution Width 13.0% Platelet Count 11844^3/UL Mean Platelet Volume 11.4fl Neutrophils % 63.4% Lymphocytes % 26.4% Monocytes % 8.2% Eosinophils % 1.1% Basophils % 0.5% Nucleated Red Blood Cells % 0.0/100WBC Neutrophils # 5.110^3/ul Lymphocytes # 2.110^3/ul Monocytes # 0.710^3/ul Eosinophils # 0.110^3/ul Basophils # 0.010^3/ul Nucleated Red Blood Cells # 0.010^3/ul Prothrombin Time 12.0Sec Prothrombin Time Ratio 0.9 INR International Normalized Ratio 0.89 Activated Partial Thromboplast Time 31.0Sec Sodium Level 137mmol/L Potassium Level 4.5mmol/L Chloride Level 100mmol/L Carbon Dioxide Level 22mmol/L Anion Gap 20 Blood Urea Nitrogen 38mg/dl Creatinine 8.56mg/dl Glucose Level 96mg/dl Calcium Level 10.6mg/dl Troponin I 0.164ng/ml Current Medications Medications (Trade) Dose Ordered Sig/Halie Route PRN Reason Start Time Stop Time Status Last Admin Dose Admin Acetaminophen/ Hydrocodone Bitart (Mims (10/325)) 1 tab ONCE ONCE PO 03/11/17 18:00 03/11/17 18:01 DC 03/11/17 18:13 Ondansetron HCl (Zofran Odt) 4 mg ONCE STAT ODT 03/11/17 17:58 03/11/17 18:00 DC 03/11/17 18:10 Nicardipine HCl (Cardene) 30 mg ONCE ONCE PO 03/11/17 18:00 03/11/17 18:01 DC 03/11/17 18:12 Aspirin (Aspirin) 162 mg ONCE ONCE PO 03/11/17 19:00 03/11/17 19:01 DC 03/11/17 19:37 Ondansetron HCl (Zofran Inj) 4 mg ER BRIDGE PRN IV NAUSEA AND/OR VOMITING 03/11/17 19:00 03/12/17 18:59 Acetaminophen (Tylenol Tab) 650 mg ER BRIDGE PRN PO MILD PAIN/FEVER 03/11/17 19:00 03/12/17 18:59 Nitroglycerin (Nitroglycerin 2% Oint) 1 inch ONCE STAT TD 03/11/17 18:55 03/11/17 18:57 DC 03/11/17 19:36 Nitroglycerin (Nitroglycerin (Sl Tab) 0.4 Mg) 1 tab Q5M UP TO 3 DOSES PRN SL CHEST PAIN 03/11/17 19:00 Labetalol HCl (Labetalol) 20 mg ONCE ONCE IV 03/11/17 19:00 03/11/17 19:01 DC 03/11/17 19:37 Procedures/MDM EKG read by me: Rate/Rhythm: Regular rate and rhythm at a rate of 90 Intervals: Normal Impression: No evidence of ischemia or arrhythmia PROCEDURE: XR Chest. CLINICAL INDICATION: Chest pain, shortness of breath TECHNIQUE: AP view of the chest was obtained. COMPARISON: 11/29/2016 FINDINGS: Cardiac silhouette remains mild - moderately enlarged. Right-sided single lead pacer remains in place. There is pulmonary vascular congestion. No focal consolidation, pleural effusion or pneumothorax is identified. Visualized osseous structures appear intact. IMPRESSION: Cardiomegaly, with pulmonary vascular congestion. RPTAT: HESO .Juan R Matos MD, MD Date Time Electronically viewed and signed by .Juan R Matos MD, on 03/11/2017 18:43 Patient is a 46-year-old who presents with swelling, chest pain, and shortness of breath. The patient has bilateral hand swelling and a positive troponin. I am concerned about NSTEMI. EKG shows no signs of ST elevations. The patient will be admitted to the care of Dr. Simpson to a telemetry bed. She was given aspirin. The patient also has a hemoglobin of 11.3 but showing anemia but does not require transfusion. Her potassium is within normal limits. She will likely need dialysis while admitted. Departure Diagnosis: Primary Impression: Shortness of breath Additional Impressions: NSTEMI (non-ST elevated myocardial infarction) Anemia Qualified Code: D64.9 - Anemia, unspecified type STEPHANIE CASTILLO MD Mar 11, 2017 20:29
[2017-03-11 20:56] VITALS: BP 161/79; RESP 16
[2017-03-11 21:00] VITALS: PULSE 78; Ht 160 cm; Wt 66.0 kg
[2017-03-11] MEDS ORDERED: DOCUSATE SODIUM 100 MG CAP PO PRN (21:30)
[2017-03-11] MEDS ORDERED: HYDROCODONE/APAP (5/325) TAB PO PRN (21:30)
[2017-03-11] MEDS ORDERED: hydrALAzine 20 MG INJ IV PRN (21:30)
[2017-03-11] MEDS ORDERED: DIPHENHYDRAMINE 50 MG CAP PO PRN (21:30)
--- NOTE | 2017-03-11 21:37 | HP ---
Date/Time of Note Date/Time of Note DATE: 03/11/17 TIME: 21:34 Assessment/Plan VTE Prophylaxis VTE Prophylaxis Intervention: other Lines/Catheters IV Catheter Type (from Nrsg): Peripheral IV Reason Cath still needed: other (indicate) Assessment/Plan Chief Complaint/Hosp Course ESRD INC HTN ANEMIA POSITIVE TROPONIN NSTEMI OA DJD PLAN BP CONTROL HD CARDIOCONSULT Problems: HPI/ROS Admit Date/Time Admit Date/Time Mar 11, 2017 at 18:53 ROS Subjective hx not possible: other (SOB NO CP) ENT: no complaints Respiratory: no complaints Cardiovascular: no complaints, orthopenea, palpitations, No chest pain Gastrointestinal: no complaints, No diarrhea Genitourinary: no complaints Musculoskeletal: bone/joint pain, no complaints Skin: no complaints Neurologic: no complaints Endocrine: no complaints Psychological: no complaints Immunologic: no complaints PMH/Family/Social Past Medical History Medical History: congestive heart failure, coronary artery disease, GERD, high cholesterol, hypertension, renal disease Past Surgical History Past Surgical Hx: noncontributory, other Family History Significant Family History: hypertension, renal disease, vascular disease Social History Alcohol Use: none Smoking Status: Never smoker Drug Use: none Exam/Review of Systems Vital Signs Vitals Vital Signs Date Time Temp Pulse Resp B/P Pulse Ox O2 Delivery O2 Flow Rate FiO2 03/11/17 21:00 78 03/11/17 20:56 98.2 16 161/79 97 03/11/17 20:32 Room Air 03/11/17 18:02 0 Exam Constitutional: alert, oriented, well developed Psych: no complaints Head: normocephalic Eyes: EOMI, nl conjunctiva, nl lids ENMT: nl external ears & nose, nl lips & teeth Neck: non-tender, supple Respiratory: diminished breath sounds Cardiovascular: diastolic murmur, regular rate and rhythm Gastrointestinal: nl liver, spleen, non-tender, soft Musculoskeletal: nl extremities to inspection Extremities: normal pulses Neurological: FULFILLMENT SPECIALIST II-XII intact, nl mental status, nl speech, nl strength Labs Result Diagram: 03/11/17 17503/[id number]/171754 Medications Medications Current Medications Amlodipine Besylate (Norvasc) 5 mg BID PO ; Start 03/11/17 at 22:00 Carvedilol (Coreg) 25 mg BID PO ; Start 03/11/17 at 22:00 Cinacalcet (Sensipar) 60 mg DAILY PO ; Start 03/12/17 at 09:00; Status UNV Diphenhydramine HCl (Benadryl) 50 mg Q12 PRN PO ITCHING; Start 03/11/17 at 21: 30; Status UNV Docusate Sodium (Colace) 100 mg BID PRN PO CONSTIPATION; Start 03/11/17 at 21: 30; Status UNV Folic Acid (Folic Acid) 1 mg DAILY PO ; Start 03/12/17 at 09:00; Status UNV Hydralazine HCl (Apresoline) 75 mg TID PO ; Start 03/12/17 at 09:00; Status UNV Acetaminophen/ Hydrocodone Bitart ([place] (5/325)) 1 tab Q6H PRN PO PAIN; Start 03/11/17 at 21:30; Status UNV Lanthanum Carbonate (Fosrenol) 500 mg TID PO ; Start 03/12/17 at 09:00; Status UNV Losartan Potassium (Cozaar) 50 mg DAILY PO ; Start 03/12/17 at 09:00; Status UNV Pantoprazole (Protonix Tab) 40 mg DAILY PO ; Start 03/12/17 at 09:00; Status UNV REMI SIMPSON MD Mar 11, 2017 21:37
[2017-03-11] MEDS: morphine 2 MG INJ IV PRN (22:04)
[2017-03-11] MEDS: AMLODIPINE 5 MG TAB PO SCH (22:05)
[2017-03-12] VITALS (15 sets, daily range): BP systolic 128–178; BP diastolic 56–84; PULSE 66–83; RESP 18–20
[2017-03-12 01:27] LABS: CK-MB 0.71 ng/ml (0.0-2.4)
[2017-03-12 01:31] LABS: TROPONIN-I 0.17 ng/ml (0.00-0.12)
[2017-03-12] MEDS: DIPHENHYDRAMINE 50 MG INJ IV PRN ×2 (02:07→16:44)
[2017-03-12] MEDS: PANTOPRAZOLE (EC) 40 MG TAB PO SCH (06:00)
[2017-03-12] MEDS: SEVELAMER CARBONATE 0.8 GM PKT PO SCH ×4 (08:00→18:05)
[2017-03-12] MEDS: LANTHANUM 500 MG CHEW PO SCH ×4 (08:00→18:05)
[2017-03-12 08:08] LABS: BASOPHILS % 0.6 % (0.0-2.0); EOSINOPHILS # 0.1 10^3/ul (0.0-0.5); EOSINOPHILS % 2.2 % (0.0-7.0); HEMATOCRIT 28.9 % (37.0-47.0); HEMOGLOBIN 9.4 g/dl (12.0-16.0); LYMPHOCYTES # 1.3 10^3/ul (0.8-2.9); LYMPHOCYTES % 21.2 % (15.0-51.0); MEAN CORPUSCULAR HEMOGLOBIN 35.2 pg (29.0-33.0); MEAN CORPUSCULAR HGB CONC 32.5 g/dl (32.0-37.0); MEAN CORPUSCULAR VOLUME 108.2 fl (82.0-101.0); MEAN PLATELET VOLUME 11.6 fl (7.4-10.4); MONOCYTE # 0.7 10^3/ul (0.3-0.9); MONOCYTES % 10.7 % (0.0-11.0); NEUTROPHIL # 4.1 10^3/ul (1.6-7.5); PLATELET COUNT 204 10^3/UL (140-415); RED BLOOD COUNT 2.67 10^6/ul (4.20-5.40); RED CELL DISTRIBUTION WIDTH 13.2 % (11.5-14.5); WHITE BLOOD COUNT 6.3 10^3/ul (4.8-10.8)
[2017-03-12 08:14] LABS: ADD SCAN DIFF NO
[2017-03-12 08:40] LABS: CALCIUM 9.6 mg/dl (8.4-10.2); CREATININE 9.66 mg/dl (0.44-1.00); POTASSIUM 5.1 mmol/L (3.5-5.1)
[2017-03-12 08:50] LABS: CK-MB 0.74 ng/ml (0.0-2.4)
[2017-03-12] MEDS: CINACALCET 30 MG TAB PO SCH (08:55)
[2017-03-12] MEDS: FOLIC ACID 1 MG TAB PO SCH (08:55)
[2017-03-12] MEDS: ASPIRIN 81 MG TAB PO SCH (08:56)
[2017-03-12] MEDS: AMLODIPINE 5 MG TAB PO SCH ×3 (08:57→20:39)
[2017-03-12] MEDS: LOSARTAN 50 MG TAB PO SCH ×3 (08:57→20:38)
[2017-03-12] MEDS ORDERED: CINACALCET 30 MG TAB PO SCH (09:00)
[2017-03-12 09:01] LABS: TROPONIN-I 0.148 ng/ml (0.00-0.12)
--- NOTE | 2017-03-12 13:46 | PN ---
Date/Time of Note Date/Time of Note DATE: 03/12/17 TIME: 13:44 Assessment/Plan VTE Prophylaxis VTE Prophylaxis Intervention: ambulation Lines/Catheters IV Catheter Type (from Nrs): Peripheral IV Assessment/Plan Chief Complaint/Hosp Course 1. ESRD 2. HTN, controlled 3. ANEMIA 4. POSITIVE TROPONIN 5. NSTEMI 6. OA DJD Problems: Assessment/Plan 1. Dr Spencer for cardiology consult Subjective 24 Hr Interval Summary Constitutional: no complaints Gastrointestinal: no complaints Exam/Review of Systems Vital Signs Vitals Vital Signs Date Time Temp Pulse Resp B/P Pulse Ox O2 Delivery O2 Flow Rate FiO2 03/12/17 12:32 72 03/12/17 12:09 97.0 18 149/80 98 03/11/17 20:32 Room Air 03/11/17 18:02 0 Intake and Output 03/11/17 03/11/17 03/12/17 15:00 23:00 07:00 Intake Total 120 ml Balance 120 ml Exam Constitutional: alert, oriented Cardiovascular: regular rate and rhythm Gastrointestinal: soft Results Result Diagram: 03/12/17 0713 03/12/17 0713 Results 24 hrs Laboratory Tests Test 03/11/17 17:55 03/12/17 07:13 White Blood Count 8.1 6.3 # Red Blood Count 3.15 L 2.67 L Hemoglobin 11.3 L 9.4 L Hematocrit 33.4 L 28.9 L Mean Corpuscular Volume 106.0 H 108.2 H Mean Corpuscular Hemoglobin 35.9 H 35.2 H Mean Corpuscular Hemoglobin Concent 33.8 32.5 Red Cell Distribution Width 13.0 13.2 Platelet Count 231 204 Mean Platelet Volume 11.4 H 11.6 H Neutrophils % 63.4 65.0 Lymphocytes % 26.4 21.2 Monocytes % 8.2 10.7 Eosinophils % 1.1 2.2 Basophils % 0.5 0.6 Nucleated Red Blood Cells % 0.0 0.0 Neutrophils # 5.1 4.1 Lymphocytes # 2.1 1.3 Monocytes # 0.7 0.7 Eosinophils # 0.1 0.1 Basophils # 0.0 0.0 Nucleated Red Blood Cells # 0.0 0.0 Prothrombin Time 12.0 L Prothrombin Time Ratio 0.9 INR International Normalized Ratio 0.89 Activated Partial Thromboplast Time 31.0 Sodium Level 137 136 Potassium Level 4.5 5.1 Chloride Level 100 100 Carbon Dioxide Level 22 23 Anion Gap 20 H 18 H Blood Urea Nitrogen 38 H 40 H Creatinine 8.56 H 9.66 H Glucose Level 96 75 Calcium Level 10.6 H 9.6 Troponin I 0.164 *H 0.148 *H Creatine Kinase 22 L Creatine Kinase Index 3.4 Creatinine Kinase MB (Mass) 0.74 Medications Medications Current Medications Amlodipine Besylate (Norvasc) 5 mg BID PO Last administered on 03/12/17 10:02 ; Admin Dose 5 MG; Start 03/11/17 at 22:00 Carvedilol (Coreg) 25 mg BID PO Last administered on 03/12/17 10:01; Admin Dose 25 MG; Start 03/11/17 at 22:00 Docusate Sodium (Colace) 100 mg BID PRN PO CONSTIPATION; Start 03/11/17 at 21: 30 Folic Acid (Folic Acid) 1 mg DAILY PO Last administered on 03/12/17 08:55; Admin Dose 1 MG; Start 03/12/17 at 09:00 Hydralazine HCl (Apresoline) 75 mg TID PO Last administered on 03/12/17 10:01 ; Admin Dose 75 MG; Start 03/11/17 at 22:00 Acetaminophen/ Hydrocodone Bitart ([place] (5/325)) 1 tab Q6H PRN PO PAIN; Start 03/11/17 at 21:30 Losartan Potassium (Cozaar) 50 mg DAILY PO Last administered on 03/12/17 10:02 ; Admin Dose 50 MG; Start 03/12/17 at 09:00 Pantoprazole (Protonix Tab) 40 mg DAILY@06 PO Last administered on 03/12/17 06 :00; Admin Dose 40 MG; Start 03/12/17 at 06:00 Morphine Sulfate (morphine) 2 mg Q4H PRN IV PAIN Last administered on 22:04; Admin Dose 2 MG; Start 03/11/17 at 21:30 Aspirin (Aspirin) 81 mg DAILY PO Last administered on 03/12/17 08:56; Admin Dose 81 MG; Start 03/12/17 at 09:00 Hydralazine HCl (Apresoline) 10 mg Q6H PRN IV SBP > 160 Last administered on 06:00; Admin Dose 10 MG; Start 03/11/17 at 21:30 Acetaminophen (Tylenol Tab) 650 mg Q4H PRN PO PAIN AND OR ELEVATED TEMP Last administered on 03/11/17 22:04; Admin Dose 650 MG; Start 03/11/17 at 21:30 Diphenhydramine HCl (Benadryl) 50 mg Q6H PRN IV ITCHING Last administered on 02:07; Admin Dose 50 MG; Start 03/12/17 at 00:30 TONY SANDOVAL Mar 12, 2017 13:46
--- NOTE | 2017-03-12 18:00 | CONS ---
Date/Time of Note Date/Time of Note DATE: 03/12/17 TIME: 17:52 Assessment/Plan Assessment/Plan Chief Complaint/Hosp Course IMp: 1. Positive troponin-likely represents chronic cardiomyopathy in the setting of ESRD. NO cp. Now downtrended and negative. [facility] 12/2015 no sig cad 2.HTN 3.HL 4.ESRD on HD 5.AICD 6. H/O lupus Recc: -Tele -serial ecg's -trend cardiac enzymes -EF 40% by most recent echo 10/2016 -HD for volume removal -Continue norvasc/losartan with probale slight incrase to improve overall BP control and for afterload reduction -Continue coreg -Continue asa -check fasting lipid panel Problems: Consultation Date/Type/Reason Admit Date/Time Mar 11, 2017 at 18:53 Date of Consultation: Mar 12, 2017 Type of Consultation: cardiology Reason for Consultation positive troponin/cardiomyopathy Referring Provider: REMI SIMPSON Hx of Present Illness Ms. Dang is a 46-year-old female with a history of cardiomyopathy with decreased left ventricular ejection fraction, last being approximately 35% by echo March 2016, status post AICD implant, hypertension, end-stage renal disease on hemodialysis, congestive heart failure, medical noncompliance, lupus, who initially presented with worsening shortness of breath, hand and facial swelling and uncontrolled systolic blood pressure pressures >200. Constitutional: no complaints ENT: no complaints Respiratory: shortness of breath Cardiovascular: no complaints, No chest pain Gastrointestinal: no complaints Genitourinary: no complaints Musculoskeletal: bone/joint pain, no complaints, other (hand swelling) Skin: no complaints Neurologic: no complaints Psychological: no complaints Immunologic: no complaints Past Medical History Medical History: congestive heart failure, coronary artery disease, GERD, high cholesterol, hypertension, renal disease Past Surgical History [facility] 12/2015 with no sig obstructive cad Past Surgical Hx: noncontributory, other Family History Significant Family History: no pertinent family hx Social History Alcohol Use: none Smoking Status: Never smoker Drug Use: none Exam/Review of Systems Vital Signs Vitals Vital Signs Date Time Temp Pulse Resp B/P Pulse Ox O2 Delivery O2 Flow Rate FiO2 03/12/17 16:45 74 03/12/17 16:30 20 03/12/17 16:29 98.5 143/78 97 03/11/17 20:32 Room Air 03/11/17 18:02 0 Intake and Output 03/11/17 03/11/17 03/12/17 15:00 23:00 07:00 Intake Total 120 ml Balance 120 ml Exam Constitutional: alert Psych: no complaints Head: normocephalic ENMT: mucosa pink and moist Neck: jvd (9 cm water), supple Respiratory: diminished breath sounds (at bases/B) Cardiovascular: regular rate and rhythm Gastrointestinal: non-tender, soft Musculoskeletal: muscle tone (normal) Extremities: edema (none) Neurological: other (No focal deficits) Results Result Diagram: 03/12/17 0713 03/12/1713 Results 24 hrs Laboratory Tests Test 03/11/17 17:55 03/12/17 07:13 03/12/17 14:25 White Blood Count 8.1 6.3 # Red Blood Count 3.15 L 2.67 L Hemoglobin 11.3 L 9.4 L Hematocrit 33.4 L 28.9 L Mean Corpuscular Volume 106.0 H 108.2 H Mean Corpuscular Hemoglobin 35.9 H 35.2 H Mean Corpuscular Hemoglobin Concent 33.8 32.5 Red Cell Distribution Width 13.0 13.2 Platelet Count 231 204 Mean Platelet Volume 11.4 H 11.6 H Neutrophils % 63.4 65.0 Lymphocytes % 26.4 21.2 Monocytes % 8.2 10.7 Eosinophils % 1.1 2.2 Basophils % 0.5 0.6 Nucleated Red Blood Cells % 0.0 0.0 Neutrophils # 5.1 4.1 Lymphocytes # 2.1 1.3 Monocytes # 0.7 0.7 Eosinophils # 0.1 0.1 Basophils # 0.0 0.0 Nucleated Red Blood Cells # 0.0 0.0 Prothrombin Time 12.0 L Prothrombin Time Ratio 0.9 INR International Normalized Ratio 0.89 Activated Partial Thromboplast Time 31.0 Sodium Level 137 136 Potassium Level 4.5 5.1 Chloride Level 100 100 Carbon Dioxide Level 22 23 Anion Gap 20 H 18 H Blood Urea Nitrogen 38 H 40 H Creatinine 8.56 H 9.66 H Glucose Level 96 75 Calcium Level 10.6 H 9.6 Troponin I 0.164 *H 0.148 *H 0.105 Creatine Kinase 22 L Creatine Kinase Index 3.4 Creatinine Kinase MB (Mass) 0.74 Medications Medications Current Medications Amlodipine Besylate (Norvasc) 5 mg BID PO Last administered on 03/12/17 10:02 ; Admin Dose 5 MG; Start 03/11/17 at 22:00 Carvedilol (Coreg) 25 mg BID PO Last administered on 03/12/17 10:01; Admin Dose 25 MG; Start 03/11/17 at 22:00 Docusate Sodium (Colace) 100 mg BID PRN PO CONSTIPATION; Start 03/11/17 at 21: 30 Folic Acid (Folic Acid) 1 mg DAILY PO Last administered on 03/12/17 08:55; Admin Dose 1 MG; Start 03/12/17 at 09:00 Hydralazine HCl (Apresoline) 75 mg TID PO Last administered on 03/12/17 10:01 ; Admin Dose 75 MG; Start 03/11/17 at 22:00 Acetaminophen/ Hydrocodone Bitart ([place] (5/325)) 1 tab Q6H PRN PO PAIN; Start 03/11/17 at 21:30 Losartan Potassium (Cozaar) 50 mg DAILY PO Last administered on 03/12/17 10:02 ; Admin Dose 50 MG; Start 03/12/17 at 09:00 Pantoprazole (Protonix Tab) 40 mg DAILY@06 PO Last administered on 03/12/17 06 :00; Admin Dose 40 MG; Start 03/12/17 at 06:00 Morphine Sulfate (morphine) 2 mg Q4H PRN IV PAIN Last administered on 22:04; Admin Dose 2 MG; Start 03/11/17 at 21:30 Aspirin (Aspirin) 81 mg DAILY PO Last administered on 03/12/17 08:56; Admin Dose 81 MG; Start 03/12/17 at 09:00 Hydralazine HCl (Apresoline) 10 mg Q6H PRN IV SBP > 160 Last administered on 06:00; Admin Dose 10 MG; Start 03/11/17 at 21:30 Acetaminophen (Tylenol Tab) 650 mg Q4H PRN PO PAIN AND OR ELEVATED TEMP Last administered on 03/11/17 22:04; Admin Dose 650 MG; Start 03/11/17 at 21:30 Diphenhydramine HCl (Benadryl) 50 mg Q6H PRN IV ITCHING Last administered on 6/ 30/17at 16:44; Admin Dose 50 MG; Start 03/12/17 at 00:30 DEONNA DENT Mar 12, 2017 18:00
[2017-03-12] MEDS: morphine 2 MG INJ IV PRN (20:37)
[2017-03-12] MEDS ORDERED: hydrALAzine 20 MG INJ IV PRN (21:00)
[2017-03-13] VITALS (9 sets, daily range): BP systolic 138–173; BP diastolic 71–82; PULSE 67–86; RESP 17–20
[2017-03-13] MEDS: PANTOPRAZOLE (EC) 40 MG TAB PO SCH (05:23)
[2017-03-13] MEDS: SEVELAMER CARBONATE 0.8 GM PKT PO SCH ×2 (08:00→12:00)
[2017-03-13] MEDS: LOSARTAN 50 MG TAB PO SCH (09:27)
[2017-03-13] MEDS: ASPIRIN 81 MG TAB PO SCH (09:27)
[2017-03-13] MEDS: FOLIC ACID 1 MG TAB PO SCH (09:27)
[2017-03-13] MEDS: LANTHANUM 500 MG CHEW PO SCH ×2 (09:27→12:48)
[2017-03-13] MEDS: AMLODIPINE 5 MG TAB PO SCH (09:28)
[2017-03-13] MEDS: CINACALCET 30 MG TAB PO SCH (09:28)
[2017-03-13 09:36] LABS: CALCIUM 9.5 mg/dl (8.4-10.2); CREATININE 7.29 mg/dl (0.44-1.00); POTASSIUM 4.6 mmol/L (3.5-5.1)
[2017-03-13 09:57] LABS: CHOL/HDL RATIO 3.8 RATIO
[2017-03-13 10:32] LABS: CK-MB 0.57 ng/ml (0.0-2.4); TROPONIN-I 0.109 ng/ml (0.00-0.12)
[2017-03-13] MEDS: morphine 2 MG INJ IV PRN (12:49)
--- NOTE | 2017-03-13 12:54 | PDOCDIS ---
Discharge Instructions CONDITION Patient Condition: Good HOME CARE INSTRUCTIONS: Diet Instructions: Low Fat /CholesterolSpecial Diet: 2GM K, 2gram na ACTIVITY: Activity Restrictions: Slowly Increase Activity TONY SANDOVAL Mar 13, 2017 12:53
[2017-03-13] MEDS ORDERED: NIT4 SL (12:58)
[2017-03-13] MEDS ORDERED: ATOR20TA38 PO (12:58)
[2017-03-13] MEDS ORDERED: ASPI81TA3 PO (12:58)
[2017-03-13] MEDS ORDERED: LOSA50TA2 PO (12:58)
--- NOTE | 2017-03-13 13:02 | PN ---
Date/Time of Note Date/Time of Note DATE: 03/13/17 TIME: 13:00 Assessment/Plan VTE Prophylaxis VTE Prophylaxis Intervention: ambulation Lines/Catheters IV Catheter Type (from [facility] [place] Assessment/Plan Chief Complaint/Hosp Course 1. ESRD 2. HTN, controlled 3. ANEMIA 4. POSITIVE TROPONIN 5. NSTEMI 6. OA DJD 7. Dyslipidemia Problems: Assessment/Plan 1. Discharge home with meds 2. See PCP i week 3. Lipitor for dyslipidemia Subjective 24 Hr Interval Summary Constitutional: improved, no complaints Exam/Review of Systems Vital Signs Vitals Vital Signs Date Time Temp Pulse Resp B/P Pulse Ox O2 Delivery O2 Flow Rate FiO2 03/13/17 12:45 97.7 76 18 173/81 97 Room Air 03/11/17 18:02 0 Intake and Output 03/12/17 03/12/17 03/13/17 15:00 23:00 07:00 Intake Total 980 ml 250 ml Output Total 3000 ml Balance -2020 ml 250 ml Exam Constitutional: alert, oriented Results Result Diagram: 03/12/17 0713 03/13/17 0820 Results 24 hrs Laboratory Tests Test 03/12/17 14:25 03/13/17 08:20 Troponin I 0.105 0.109 Sodium Level 138 Potassium Level 4.6 Chloride Level 92 L Carbon Dioxide Level 27 Anion Gap 24 H Blood Urea Nitrogen 25 #H Creatinine 7.29 #H Glucose Level 80 Calcium Level 9.5 Creatine Kinase 38 Creatine Kinase Index 1.5 Creatinine Kinase MB (Mass) 0.57 Triglycerides Level 226 H Cholesterol Level 213 H LDL Cholesterol, Calculated 112 HDL Cholesterol 56 Cholesterol/HDL Ratio 3.8 Medications Medications Current Medications Amlodipine Besylate (Norvasc) 5 mg BID PO Last administered on 03/13/17 09:28; Admin Dose 5 MG; Start 03/11/17 at 22:00 Carvedilol (Coreg) 25 mg BID PO Last administered on 03/13/17 09:28; Admin Dose 25 MG; Start 03/11/17 at 22:00 Docusate Sodium (Colace) 100 mg BID PRN PO CONSTIPATION; Start 03/11/17 at 21: 30 Folic Acid (Folic Acid) 1 mg DAILY PO Last administered on 03/13/17 09:27; Admin Dose 1 MG; Start 03/12/17 at 09:00 Hydralazine HCl (Apresoline) 75 mg TID PO Last administered on 03/13/17 12:48; Admin Dose 75 MG; Start 03/11/17 at 22:00 Acetaminophen/ Hydrocodone Bitart ([place] (5/325)) 1 tab Q6H PRN PO PAIN; Start 03/11/17 at 21:30 Pantoprazole (Protonix Tab) 40 mg DAILY@06 PO Last administered on 03/12/17 06 :00; Admin Dose 40 MG; Start 03/12/17 at 06:00 Morphine Sulfate (morphine) 2 mg Q4H PRN IV PAIN Last administered on 03/13/17 12:49; Admin Dose 2 MG; Start 03/11/17 at 21:30 Aspirin (Aspirin) 81 mg DAILY PO Last administered on 03/13/17 09:27; Admin Dose 81 MG; Start 03/12/17 at 09:00 Acetaminophen (Tylenol Tab) 650 mg Q4H PRN PO PAIN AND OR ELEVATED TEMP Last administered on 03/11/17 22:04; Admin Dose 650 MG; Start 03/11/17 at 21:30 Diphenhydramine HCl (Benadryl) 50 mg Q6H PRN IV ITCHING Last administered on 16:44; Admin Dose 50 MG; Start 03/12/17 at 00:30 Hydralazine HCl (Apresoline) 10 mg Q4 PRN IV SBP > 160 Last administered on 20:43; Admin Dose 10 MG; Start 03/12/17 at 21:00 Losartan Potassium (Cozaar) 50 mg BID PO Last administered on 03/13/17 09:27; Admin Dose 50 MG; Start 03/12/17 at 21:00 TONY SANDOVAL Mar 13, 2017 13:01
--- NOTE | 2017-03-15 15:57 | DS ---
Date/Time of Note Date/Time of Note DATE: 03/15/17 TIME: 15:54 Discharge Summary Admission/Discharge Info Admit Date/Time Mar 11, 2017 at 18:53 Discharge Date/Time Mar 13, 2017 at 15:25 Discharge Diagnosis SOB Patient Condition: Good Consults cardiology Procedures ECG Hx of Present Illness pt was seen in hospital for chest pain, one of the trop was positive. Pt was stabilized. her medications were adjusted. Hospital Course 1. ESRD 2. HTN, controlled 3. ANEMIA 4. POSITIVE TROPONIN 5. NSTEMI 6. OA DJD 7. Dyslipidemia Home Meds Active Scripts Atorvastatin Calcium* (Atorvastatin Calcium*) 20 Mg Tablet, 20 MG PO QHS for hyper for 30 Days, #30 TAB Prov:TONY SANDOVAL 03/13/17 Nitroglycerin* (Nitrostat*) 0.4 Mg Tab.subl, 1 TAB SL .Q5M UP TO 3 DOSES Y for CHEST PAIN for 30 Days, #60 Prov:TONY SANDOVAL 03/13/17 Losartan Potassium* (Cozaar*) 50 Mg Tablet, 50 MG PO BID for 30 Days, #60 TAB Prov:TONY SANDOVAL 03/13/17 Aspirin (Aspirin) 81 Mg Chew, 81 MG PO DAILY for 30 Days, TAB Prov:TONY SANDOVAL 03/13/17 Hydrocodone/Acetaminophen ([place] 5-325 Tablet) 1 Each Tablet, 1 TAB PO Q6H Y for PAIN, #20 TAB Prov:MARS CARTER PA-C 10/19/16 Carvedilol* (Coreg*) 25 Mg Tab, 25 MG PO BID for 30 Days, TAB Prov:REMI SIMPSON MD 12/26/15 Reported Medications Sevelamer Carbonate* (Renvela*) 800 Mg Tablet, 0.8 GM PO WITH MEALS, TAB 2 TABS TID WITH MEALS 10/07/16 Amlodipine Besylate* (Norvasc*) 5 Mg Tablet, 5 MG PO BID, TAB 10/06/16 Cinacalcet* (Sensipar*) 60 Mg Tablet, 60 MG PO DAILY, TAB 10/06/16 Diphenhydramine Hcl* (Benadryl*) 50 Mg Cap, 50 MG PO Q12 Y for ITCHING, CAP 10/06/16 Docusate Sodium* (Doc-Q-Lace*) 100 Mg Capsule, 100 MG PO BID Y for CONSTIPATION , CAP 10/06/16 Folic Acid* (Folic Acid*) 1 Mg Tablet, 1 MG PO DAILY, TAB 10/06/16 Hydralazine Hcl* (Apresoline*) 50 Mg Tab, 50 MG PO DAILY, #30 TAB 10/06/16 Pantoprazole* (Pantoprazole*) 40 Mg Tablet.dr, 40 MG PO DAILY, TAB 12/22/15 Lanthanum Carbonate* (Fosrenol*) 500 Mg Tab.chew, 500 MG PO TID, TAB.CHEW WITH MEALS 01/11/15 Discontinued Reported Medications Losartan Potassium* (Losartan Potassium*) 50 Mg Tablet, 50 MG PO DAILY, TAB 09/26/14 Discontinued Scripts Albuterol Sulfate* (Proair HFA*) 8.5 Gm Hfa.aer.ad, 2 PUFF INH Q4H Y for WHEEZING AND SOB, #1 INHALER Prov:ANA SCHUSTER 12/08/16 Benzonatate* (Tessalon Perle*) 100 Mg Capsule, 100 MG PO Q8H Y for COUGH, #20 CAP Prov:ANA SCHUSTER 12/08/16 Azithromycin* (Zithromax*) 250 Mg Tablet, 250 MG PO .MANUEL DIRECTED, #6 TAB TAKE 500 MG (2 TABS) THE FIRST DAY THEN 250 MG (1 TAB) DAYS 2-5 Prov:ANA SCHUSTER 12/08/16 Cyclobenzaprine Hcl* (Cyclobenzaprine Hcl*) 10 Mg Tablet, 10 MG PO TID, #15 TAB Prov:MARS CARTER PA-C 09/30/16 Primary Care Provider MD JAIME Bear ANNA Mar 15, 2017 15:57
--- NOTE | 2017-03-15 20:57 | RADRPT ---
Vent Rate: 73 bpm RR Interval: 0 msec MO Interval: 140 msec QRS Duration: 94 msec QT Interval: 426 msec QTC Interval: 469 msec P-R-T [place]: -13 - -27 - 105 degrees Normal sinus rhythm Moderate voltage criteria for LVH, may be normal variant ST amp; T wave abnormality, consider lateral ischemia Prolonged QT Abnormal ECG Electronically Signed By: Mohit Diaz [id number]
== END 2017-03-13 15:25 | disposition home or self-care (01) | DRG 280 ==
LOC: E/R 17:27 → MS4 18:53
PROVIDERS: ADMIT Internal Medicine Nephrology; ATTEND Internal Medicine Nephrology
PROC: 5A1D00Z (ICD-10-PCS; principal; 2017-03-12)
DX: I21.4 Non-ST elevation (NSTEMI) myocardial infarction (principal); N18.6 End stage renal disease; I13.2 Hypertensive heart and chronic kidney disease with heart failure and with stage 5 chronic kidney disease, or end stage renal disease; M32.9 Systemic lupus erythematosus, unspecified; I50.9 Heart failure, unspecified; Z99.2 Dependence on renal dialysis; D64.9 Anemia, unspecified; M19.90 Unspecified osteoarthritis, unspecified site; E78.5 Hyperlipidemia, unspecified; I25.10 Atherosclerotic heart disease of native coronary artery without angina pectoris; Z95.810 Presence of automatic (implantable) cardiac defibrillator
CPT/HCPCS: 36415; 71010; 80048; 80061; 82550; 82553; 84484; 85025; 85610; 85730; 90935; 93005; 96374; J0360; J1200; J2270

== ENCOUNTER 2017-04-09 11:27 | Emergency (ER) | payer MEDICARE, OTHER ==
[~2017-04-09] VITALS: Wt 71.0 kg
[~2017-04-09 11:27] MED LIST changes: -ALBU8.5H3 INH; +ASPI81TA3 PO; +ATOR20TA38 PO; -AZIT250T94 PO; -BENZ100C70 PO; -CYCL-319 PO; +LOSA50TA2 PO; -LOSA50TA6 PO; +NIT4 SL
[2017-04-09] MEDS ORDERED: MECLIZINE 12.5 MG TAB PO ONE (12:00)
[2017-04-09] MEDS ORDERED: ONDANSETRON (ODT) 4 MG TAB ODT STA (12:11)
--- NOTE | 2017-04-09 12:21 | RADRPT ---
PROCEDURE: XR Chest. CLINICAL INDICATION: chest pain, dizziness TECHNIQUE: Single frontal view of the chest was obtained COMPARISON: 11/29/16 FINDINGS: The heart and mediastinum are within normal limits. There is a right-sided AICD in place. The lungs are clear. There is no pleural effusion or pneumothorax. RPTAT: AA IMPRESSION: No acute disease. .Souleymane Schwartz MD, MD Date Time Electronically viewed and signed by .Souleymane Schwartz MD, MD on 04/09/2017 12:21 .S/
[2017-04-09] MEDS ORDERED: HYDROCODONE/APAP (10/325) TAB PO ONE (12:30)
[2017-04-09] MEDS ORDERED: KETOROLAC 30 MG INJ IM STA (12:54)
[2017-04-09 13:31] VITALS: BP 149/80; PULSE 87; RESP 16
[2017-04-09] MEDS ORDERED: HYDR-902 PO (13:50)
--- NOTE | 2017-04-09 13:52 | ERD ---
ER Documentation Chief Complaint Date/Time DATE: 04/09/17 TIME: 13:51 Chief Complaint DIZZINESS FOLLOWING DIALYSIS HPI Patient is a 46-year-old female with hypertension and dialysis who presents with dizziness after dialysis. She said that she had dialysis today and "they took too much fluid off". The patient felt hot in sick after dialysis. She felt dizziness. She said that her blood pressure was 104 afterwards and it usually 190. The patient has bilateral hand swelling as well. She complains of left arm pain. She denies chest pain or syncope. Upon review of old medical records the patient has multiple visits to the ER for various complaints. The patient's primary doctor is Dr. Simpson. ROS All systems reviewed and are negative except as per history of present illness. Medications Home Meds Active Scripts Hydrocodone/Acetaminophen ([place] 10-325 Tablet) 1 Each Tablet, 1 TAB PO Q6H Y for PAIN, #7 TAB Prov:STEPHANIE CASTILLO MD 04/09/17 Atorvastatin Calcium* (Atorvastatin Calcium*) 20 Mg Tablet, 20 MG PO QHS for hyper for 30 Days, #30 TAB Prov:TONY SANDOVAL 03/13/17 Nitroglycerin* (Nitrostat*) 0.4 Mg Tab.subl, 1 TAB SL .Q5M UP TO 3 DOSES Y for CHEST PAIN for 30 Days, #60 Prov:TONY SANDOVAL 03/13/17 Losartan Potassium* (Cozaar*) 50 Mg Tablet, 50 MG PO BID for 30 Days, #60 TAB Prov:TONY SANDOVAL 03/13/17 Aspirin (Aspirin) 81 Mg Chew, 81 MG PO DAILY for 30 Days, TAB Prov:TONY SANDOVAL 03/13/17 Hydrocodone/Acetaminophen ([place] 5-325 Tablet) 1 Each Tablet, 1 TAB PO Q6H Y for PAIN, #20 TAB Prov:MARS CARTER PA-C 10/19/16 Carvedilol* (Coreg*) 25 Mg Tab, 25 MG PO BID for 30 Days, TAB Prov:REMI SIMPSON MD 12/26/15 Reported Medications Sevelamer Carbonate* (Renvela*) 800 Mg Tablet, 0.8 GM PO WITH MEALS, TAB 2 TABS TID WITH MEALS 10/07/16 Amlodipine Besylate* (Norvasc*) 5 Mg Tablet, 5 MG PO BID, TAB 10/06/16 Cinacalcet* (Sensipar*) 60 Mg Tablet, 60 MG PO DAILY, TAB 10/06/16 Diphenhydramine Hcl* (Benadryl*) 50 Mg Cap, 50 MG PO Q12 Y for ITCHING, CAP 10/06/16 Docusate Sodium* (Doc-Q-Lace*) 100 Mg Capsule, 100 MG PO BID Y for CONSTIPATION , CAP 10/06/16 Folic Acid* (Folic Acid*) 1 Mg Tablet, 1 MG PO DAILY, TAB 10/06/16 Hydralazine Hcl* (Apresoline*) 50 Mg Tab, 50 MG PO DAILY, #30 TAB 10/06/16 Pantoprazole* (Pantoprazole*) 40 Mg Tablet.dr, 40 MG PO DAILY, TAB 12/22/15 Lanthanum Carbonate* (Fosrenol*) 500 Mg Tab.chew, 500 MG PO TID, TAB.CHEW WITH MEALS 01/11/15 Allergies Allergies: Coded Allergies: valacyclovir (Verified Allergy, Mild, 04/09/17) per pt she has nightmares and hallucinations PMhx/Soc History of Surgery: Yes (LEFT ARM AV SHUNT) Anesthesia Reaction: No Hx Neurological Disorder: No Hx Respiratory Disorders: No Hx Cardiac Disorders: Yes (CHF, CAD) Hx Psychiatric Problems: Yes (ANXIETY. CLAUSTROPHOBIC) Hx Miscellaneous Medical Probl: Yes (HIGH CHOLESTEROL) Hx Alcohol Use: No Hx Substance Use: No Hx Tobacco Use: No Smoking Status: Never smoker FmHx Family History: diabetes Physical Exam Vitals Vital Signs Date Time Temp Pulse Resp B/P Pulse Ox O2 Delivery O2 Flow Rate FiO2 04/09/17 13:31 87 16 149/80 100 04/09/17 12:45 79 18 115/59 100 Room Air 04/09/17 12:07 79 18 128/70 97 04/09/17 11:35 98.0 85 18 117/59 99 Physical Exam Const: Moderate distress secondary to pain Head: Atraumatic Eyes: Normal Conjunctiva ENT: Normal External Ears, Nose and Mouth. Neck: Full range of motion..~ No meningismus. Resp: Clear to auscultation bilaterally Cardio: Regular rate and rhythm, no murmurs Abd: Soft, non tender, non distended. Normal bowel sounds Skin: No petechiae or rashes Back: No midline or flank tenderness Ext: decreased radial pulse left arm with normal cap refill in all 5 fingers of left hand Neur: Awake and alert Psych: Normal Mood and Affect Results 24 hrs Laboratory Tests Test 04/09/17 13:29 Bedside Glucose 103mg/dL Current Medications Medications (Trade) Dose Ordered Sig/Halie Route PRN Reason Start Time Stop Time Status Last Admin Dose Admin Meclizine HCl (Antivert) 25 mg ONCE ONCE PO 04/09/17 12:00 04/09/17 12:01 DC 04/09/17 12:02 Acetaminophen/ Hydrocodone Bitart ([place] (10)) 1 tab ONCE ONCE PO 04/09/17 12:30 04/09/17 12:31 DC 04/09/17 12:16 Ondansetron HCl (Zofran Odt) 4 mg ONCE STAT ODT 04/09/17 12:11 04/09/17 12:13 DC 04/09/17 12:16 Ketorolac Tromethamine (Toradol) 30 mg ONCE STAT IM 04/09/17 12:54 04/09/17 12:55 DC 04/09/17 12:57 Procedures/MDM EKG read by me: Rate/Rhythm: Regular rate and rhythm at a rate of 81 Intervals: Normal Impression: No evidence of ischemia or arrhythmia Chest x-ray negative per radiology. Ultrasound of the left upper extremity shows a functioning fistula with good distal blood flow per radiology. Patient is a 46-year-old female with dialysis who presents with dizziness after dialysis. I believe this is likely disequilibrium syndrome following dialysis. However the patient was having left arm pain. EKG shows no signs of ischemia and she denies chest pain. My concern was for possible ischemia of the left upper extremity so an arterial ultrasound was done to evaluate the fistula which is on the left side. Arterial ultrasound shows good flow in the ulnar and radial arteries of the left upper extremity. Therefore I believe outpatient management is appropriate. The patient will be given a short course of [place]. She will need to follow-up with Dr. Simpson her primary doctor. The patient can return for any worsening symptoms. The patient understands the plan and is okay for discharge at this time. She has good capillary refill in the upper extremities bilaterally. At this point I doubt true arterial ischemia. I doubt infection. I doubt fracture or dislocation. She has no trauma. Departure Diagnosis: Primary Impression: Left arm pain Additional Impression: Dizziness Condition: Fair Patient Instructions: Dizziness, Unk Cause Referrals: Your vascular surgeon Additional Instructions: Call your primary care doctor TOMORROW for an appointment during the next 1-2 days.See the doctor sooner or return here if your condition worsens before your appointment time. STEPHANIE CASTILLO MD Apr 09, 2017 13:51
--- NOTE | 2017-04-09 14:07 | RADRPT ---
PROCEDURE: US left upper extremity AV fistula/graft, ultrasound left upper extremity arteries CLINICAL INDICATION: Renal failure TECHNIQUE: Multiple sonographic images of the left upper extremity arteries, veins and hemodialysi s access was obtained utilizing grayscale, color-flow, compressive sonography and doppler imaging. The images were reviewed on a PACS workstation. COMPARISON: None. FINDINGS: There is a left upper extremity AV fistula which is widely patent. Velocities, and measurements were obtained: Upper outflow vein: 131 cm/s Mid outflow vein: 232 cm/s; aneurysm dilatation measuring up to 3 cm. Arterial anastomosis: 524 cm/s Inflow artery above the fistula: 132 cm/s Left arm Left brachial artery: 132 cm/s; monophasic waveforms Left radial artery: 30 cm/s; biphasic waveforms Left ulnar artery: 44 cm/s; triphasic waveforms IMPRESSION: Focal stenosis at the arterial anastomosis. Visualized arteries in the left arm are patent. RPTAT: AA .Souleymane Schwartz MD, MD Date Time Electronically viewed and signed by .Souleymane Schwartz MD, on 04/09/2017 14:07 .S/
== END 2017-04-09 14:14 | disposition home or self-care (01) ==
LOC: E/R 11:27
DX: M79.602 Pain in left arm (principal); I10 Essential (primary) hypertension; I50.9 Heart failure, unspecified; I25.10 Atherosclerotic heart disease of native coronary artery without angina pectoris; Z79.82 Long term (current) use of aspirin; Z99.2 Dependence on renal dialysis
CPT/HCPCS: 71010; 82962; 93005; 93931; J1885; 96372

== ENCOUNTER 2017-05-05 15:36 | Inpatient (IN) | payer MEDICARE, OTHER ==
[~2017-05-05] VITALS: Ht 162.6 cm; Wt 63.6 kg
[~2017-05-05 15:36] MED LIST changes: +HYDR-902 PO
[2017-05-05] MEDS ORDERED: PIPER-TAZO 3.375 GM IV (PMX) 100 ML IVPB STA (17:21)
[2017-05-05] MEDS ORDERED: ONDANSETRON 4 MG INJ IV STA (17:21)
[2017-05-05] MEDS ORDERED: morphine 4 MG/ML VIAL IV STA (17:21)
[2017-05-05] MEDS ORDERED: IBUPROFEN 600 MG TAB PO ONE (17:30)
[2017-05-05] MEDS ORDERED: SOD CHLORIDE 0.9% 500 ML IV ONE (17:30)
[2017-05-05 17:53] LABS: BASOPHILS % 0.3 % (0.0-2.0); EOSINOPHILS % 0.6 % (0.0-7.0); HEMATOCRIT 25.9 % (37.0-47.0); HEMOGLOBIN 8.3 g/dl (12.0-16.0); LYMPHOCYTES # 0.8 10^3/ul (0.8-2.9); LYMPHOCYTES % 11.5 % (15.0-51.0); MEAN CORPUSCULAR HEMOGLOBIN 32.5 pg (29.0-33.0); MEAN CORPUSCULAR VOLUME 101.6 fl (82.0-101.0); MEAN PLATELET VOLUME 11.2 fl (7.4-10.4); MONOCYTE # 0.8 10^3/ul (0.3-0.9); MONOCYTES % 11.8 % (0.0-11.0); NUCLEATED RED BLOOD CELLS% 0.3 /100WBC (0.0-0.0); PLATELET COUNT 335 10^3/UL (140-415); RED BLOOD COUNT 2.55 10^6/ul (4.20-5.40); RED CELL DISTRIBUTION WIDTH 18.3 % (11.5-14.5); WHITE BLOOD COUNT 6.5 10^3/ul (4.8-10.8)
[2017-05-05 18:09] LABS: INR 0.96; PROTIME 12.8 Sec (12.2-14.2)
[2017-05-05 18:14] LABS: ALBUMIN 3.9 g/dl (3.3-4.9); ALBUMIN/GLOBULIN RATIO 0.86; BILIRUBIN,INDIRECT 0.5 mg/dl (0-1.1); BILIRUBIN,TOTAL 0.5 mg/dl (0.2-1.3); CALCIUM 10.2 mg/dl (8.4-10.2); CREATININE 5.5 mg/dl (0.44-1.00); POTASSIUM 5.4 mmol/L (3.5-5.1); TOTAL PROTEIN 8.4 g/dl (6.1-8.1)
--- NOTE | 2017-05-05 18:19 | RADRPT ---
PROCEDURE: Right Upper Quadrant Ultrasound. CLINICAL INDICATION: cholecystitis TECHNIQUE: Multiple real-time images were acquired of the patient's right upper quadrant abdomen a nd retroperitoneum utilizing a high resolution transducer. COMPARISON: None FINDINGS: The liver measures 17.4 cm, and demonstrates normal echogenicity. The main portal vein is patent wit h proper directional flow. There is no intrahepatic biliary ductal dilatation. The extrahepatic comm on bile duct measures 3 mm. There is no cholelithiasis. There is prominent gallbladder wall thickening to 11 mm. There is radha cholecystic fluid. The visualized pancreas is unremarkable. The right kidney measures 9.0 x 3.4 x 4.0 cm and demonstrates prominent cortical thinning increased echogenicity of the renal cortex. There is no right renal calculus or hydronephrosis. Multiple small simple right renal cysts are identified measuring up to 1.4 cm. The visualized abdominal aorta and IVC are grossly unremarkable. IMPRESSION: Hepatomegaly. There is no cholelithiasis although there is prominent gallbladder wall thickening and pericholecyst ic fluid suggestive of acute cholecystitis. If clinical suspicion for acute cholecystitis persists and further confirmation is warranted, a HIDA scan can be obtained for further evaluation. Atrophic and markedly echogenic right kidney with multiple small cysts suggests medical renal diseas e. No right hydronephrosis. RPTAT: EE Physician Reji Date Time Electronically viewed and signed by Physician Reji on 05/05/2017 18:18 /
[2017-05-05 18:29] LABS: TROPONIN-I 0.151 ng/ml (0.00-0.12)
[2017-05-05] MEDS ORDERED: ASPIRIN 81 MG TAB PO ONE (18:30)
[2017-05-05] MEDS ORDERED: HYDROmorphONE 1 MG/ML SYG IV STA ×2 (18:41)
--- NOTE | 2017-05-05 19:52 | ERA ---
ER Documentation Chief Complaint Date/Time DATE: 05/05/17 TIME: 19:40 Chief Complaint upper cp x1 wk, fever&chills x3 days, ruq pain today, cmpltd dialysis today HPI 47-year-old woman complains o 1 day of constant right upper quadrant abdominal pain, states symptoms really began last night although at that time there were mild. She has had nausea today as well although no vomiting. She has end- stage kidney disease and was hemodialyzed completely today. She has had tactile fevers at home as well. Last meal was at noon. She denies of vomiting or diarrhea, no cough, no sore throat, no headache or blurry vision, no recent antibiotic use. Patient denies chest pain or shortness of breath ROS All systems reviewed and are negative except as per history of present illness. Medications Home Meds Active Scripts Atorvastatin Calcium* (Atorvastatin Calcium*) 20 Mg Tablet, 20 MG PO QHS for hyper for 30 Days, #30 TAB Prov:TONY SANDOVAL 03/13/17 Nitroglycerin* (Nitrostat*) 0.4 Mg Tab.subl, 1 TAB SL .Q5M UP TO 3 DOSES Y for CHEST PAIN for 30 Days, #60 Prov:TONY SANDOVAL 03/13/17 Losartan Potassium* (Cozaar*) 50 Mg Tablet, 50 MG PO BID for 30 Days, #60 TAB Prov:TONY SANDOVAL 03/13/17 Aspirin (Aspirin) 81 Mg Chew, 81 MG PO DAILY for 30 Days, TAB Prov:TONY SANDOVAL 03/13/17 Carvedilol* (Coreg*) 25 Mg Tab, 25 MG PO BID for 30 Days, TAB Prov:REMI SIMPSON MD 12/26/15 Reported Medications Sevelamer Carbonate* (Renvela*) 800 Mg Tablet, 0.8 GM PO WITH MEALS, TAB 2 TABS TID WITH MEALS 10/07/16 Amlodipine Besylate* (Norvasc*) 5 Mg Tablet, 5 MG PO BID, TAB 10/06/16 Cinacalcet* (Sensipar*) 60 Mg Tablet, 60 MG PO DAILY, TAB 10/06/16 Diphenhydramine Hcl* (Benadryl*) 50 Mg Cap, 50 MG PO Q12 Y for ITCHING, CAP 10/06/16 Docusate Sodium* (Doc-Q-Lace*) 100 Mg Capsule, 100 MG PO BID Y for CONSTIPATION , CAP 10/06/16 Folic Acid* (Folic Acid*) 1 Mg Tablet, 1 MG PO DAILY, TAB 10/06/16 Hydralazine Hcl* (Apresoline*) 50 Mg Tab, 50 MG PO DAILY, #30 TAB 10/06/16 Pantoprazole* (Pantoprazole*) 40 Mg Tablet.dr, 40 MG PO DAILY, TAB 12/22/15 Lanthanum Carbonate* (Fosrenol*) 500 Mg Tab.chew, 500 MG PO TID, TAB.CHEW WITH MEALS 01/11/15 Discontinued Scripts Hydrocodone/Acetaminophen ([place] 10-325 Tablet) 1 Each Tablet, 1 TAB PO Q6H Y for PAIN, #7 TAB Prov:STEPHANIE CASTILLO MD 04/09/17 Hydrocodone/Acetaminophen ([place] 5-325 Tablet) 1 Each Tablet, 1 TAB PO Q6H Y for PAIN, #20 TAB Prov:MARS CARTER PA-C 10/19/16 Allergies Allergies: Coded Allergies: valacyclovir (Verified Allergy, Mild, 05/05/17) per pt she has nightmares and hallucinations PMhx/Soc End-stage kidney disease hemodialyzed Fridays, hypertension, coronary artery disease, gastritis History of Surgery: Yes (LEFT ARM AV SHUNT) Anesthesia Reaction: No Hx Neurological Disorder: No Hx Respiratory Disorders: No Hx Cardiac Disorders: Yes (CHF, CAD) Hx Psychiatric Problems: Yes (ANXIETY. CLAUSTROPHOBIC) Hx Miscellaneous Medical Probl: Yes (HIGH CHOLESTEROL) Hx Alcohol Use: No Hx Substance Use: No Hx Tobacco Use: No Smoking Status: Never smoker FmHx Family History: No diabetes Physical Exam Vitals Vital Signs Date Time Temp Pulse Resp B/P Pulse Ox O2 Delivery O2 Flow Rate FiO2 05/05/17 19:15 98.1 76 18 139/83 97 Room Air 05/05/17 15:42 100.4 87 20 155/76 97 Physical Exam GENERAL: Well-developed, well-nourished woman, moderate discomfort, febrile HEENT: Moist mucous membranes, pink conjunctiva, no cervical spine tenderness or step-off deformities, no goiter, no jaundice or icterus, extraocular movements intact without pain. No submandibular induration, and no pharyngeal erythema NEURO: Alert and oriented 3, cranial nerves II through XII intact bilaterally, pupils equal round reactive to light, no focal deficits or facial asymmetry, sensation intact distally Strength 5/5 in upper and lower extremities bilaterally CARDIAC: Regular rate and rhythm, no murmurs rubs or gallops LUNGS: Clear bilaterally no wheezing crackles or stridor ABDOMEN: Positive Zamarripa sign, voluntary guarding, no rigidity or rebound SKIN: Warm and dry to touch, no abrasions, contusions, or hematomas, no lacerations, no ecchymosis, no target lesions, and without ulcers EXTREMITIES: No clubbing cyanosis or edema, calves are bilaterally symmetrical, no Homans sign, no popliteal cord sign. Distal pulses equal and bilateral PSYCH: Normal affect without agitation or irritability Result Diagram: 05/05/17172905/05/171729 Results 24 hrs Laboratory Tests Test 05/05/17 17:30 White Blood Count 6.510^3/ul Red Blood Count 2.5510^6/ul Hemoglobin 8.3g/dl Hematocrit 25.9% Mean Corpuscular Volume 101.6fl Mean Corpuscular Hemoglobin 32.5pg Mean Corpuscular Hemoglobin Concent 32.0g/dl Red Cell Distribution Width 18.3% Platelet Count 74353^3/UL Mean Platelet Volume 11.2fl Neutrophils % 75.0% Lymphocytes % 11.5% Monocytes % 11.8% Eosinophils % 0.6% Basophils % 0.3% Nucleated Red Blood Cells % 0.3/100WBC Neutrophils # (Manual) 510^3/ul Lymphocytes # 0.810^3/ul Monocytes # 0.810^3/ul Eosinophils # 0.010^3/ul Basophils # 0.010^3/ul Nucleated Red Blood Cells # 0.010^3/ul Prothrombin Time 12.8Sec Prothrombin Time Ratio 1.0 INR International Normalized Ratio 0.96 Sodium Level 135mmol/L Potassium Level 5.4mmol/L Chloride Level 101mmol/L Carbon Dioxide Level 25mmol/L Anion Gap 14 Blood Urea Nitrogen 30mg/dl Creatinine 5.50mg/dl Glucose Level 113mg/dl Calcium Level 10.2mg/dl Total Bilirubin 0.5mg/dl Direct Bilirubin 0.00mg/dl Indirect Bilirubin 0.5mg/dl Aspartate Amino Transf (AST/SGOT) 58IU/L Alanine Aminotransferase (ALT/SGPT) 49IU/L Alkaline Phosphatase 399IU/L Troponin I 0.151ng/ml Total Protein 8.4g/dl Albumin 3.9g/dl Globulin 4.50g/dl Albumin/Globulin Ratio 0.86 Lipase 50U/L Current Medications Medications (Trade) Dose Ordered Sig/Halie Route PRN Reason Start Time Stop Time Status Last Admin Dose Admin Morphine Sulfate (morphine) 4 mg ONCE STAT IV 05/05/17 17:21 05/05/17 17:23 DC 05/05/17 18:05 Ondansetron HCl 4 mg 4 mg ONCE STAT IV 05/05/17 17:21 05/05/17 17:23 DC 05/05/17 18:05 Piperacillin Sod/ Tazobactam Sod (Zosyn 3.375gm/ 100 ml (Pmx)) 100 ml @ 200 mls/hr ONCE STAT IVPB 05/05/17 17:21 05/05/17 17:50 DC 05/05/17 18:06 Ibuprofen 600 mg 600 mg ONCE ONCE PO 05/05/17 17:30 05/05/17 17:31 DC 05/05/17 18:05 Sodium Chloride (NS) 500 ml @ 500 mls/hr Q1H ONCE IV 05/05/17 17:30 05/05/17 18:29 DC 05/05/17 18:06 Aspirin (Aspirin) 324 mg ONCE ONCE PO 05/05/17 18:30 05/05/17 18:31 DC 05/05/17 18:40 Hydromorphone HCl (Dilaudid) 1 mg ONCE STAT IV 05/05/17 18:41 05/05/17 18:42 DC 05/05/17 18:50 Hydromorphone HCl (Dilaudid) 1 mg ONCE STAT IV 05/05/17 18:41 05/05/17 18:44 DC [facility] IV line was established 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 Patient was febrile. Blood cultures have been ordered results are pending I will follow -up. I administered 500 cc normal saline intravenously, hydromorphone 1 mg IV, Zofran 4 mg IV, ibuprofen 600 mg p.o. for suspected acute cholecystitis I administered Zosyn 3.375 g IV. EKG performed, read by me: 89 bpm, normal sinus rhythm, normal axis, no acute ST segment changes, narrow QRS complex, with good R-wave progression in precordial leads. Gallbladder ultrasound was performed revealing a calculus cholecystitis with thickened gallbladder wall and pericholecystic fluid. CBC reveals anemia at 8.3, electrolytes reveal renal failure with a BUN/ creatinine 30/5.5, potassium elevated 5.4, liver function tests unremarkable although alkaline phosphatase elevated at 399. Troponin positive at 0.15. I administered aspirin 324 mg p.o. for cardio protective measures. Patient to be admitted to telemetry setting for continued medical management and operative intervention. Her troponins will also have to be trended out. I spoke to admitting physician Dr. Simpson regarding the patient's presentation and symptomatology he agreed to plan above. I consulted surgeon Dr. Frazier regarding the patient's presentation he agreed to evaluate. Critical Care: Time: 38 minutes, this was time separate from other billable procedures. Treatments/Evaluations: Close monitoring and treatment of unstable vital signs, cardiorespiratory, and neurologic status, while maintaining tight balance of fluid, respiratory, and cardiac interventions. Departure Diagnosis: Primary Impression: Acute cholecystitis without calculus Additional Impressions: End stage kidney disease Hyperkalemia Anemia Qualified Code: D64.9 - Anemia, unspecified type Elevated troponin Condition: Critical ABHISHEK VILLALOBOS MD May 05, 2017 19:51
[2017-05-05] MEDS ORDERED: DIPHENHYDRAMINE 50 MG INJ IV ONE (21:00)
[2017-05-05 23:22] VITALS: TEMP 98
--- NOTE | 2017-05-05 23:28 | PN ---
Date/Time of Note Date/Time of Note DATE: 05/05/17 TIME: 23:26 Assessment/Plan VTE Prophylaxis VTE Prophylaxis Intervention: other Assessment/Plan Chief Complaint/Hosp Course [id number] a/p abd pain hyperkalemia esrd cholecystitis plan per order Problems: Subjective 24 Hr Interval Summary ENT: no complaints Respiratory: no complaints Gastrointestinal: pain Genitourinary: no complaints Exam/Review of Systems Vital Signs Vitals Vital Signs Date Time Temp Pulse Resp B/P Pulse Ox O2 Delivery O2 Flow Rate FiO2 05/05/17 23:22 98.0 79 20 147/77 100 Room Air Exam Neck: supple Respiratory: clear to auscultation Cardiovascular: regular rate and rhythm Gastrointestinal: bowel sounds, soft, tender Musculoskeletal: nl extremities to inspection Extremities: normal pulses Results Result Diagram: 05/05/17 1730 05/05/17 1730 Results 24 hrs Laboratory Tests Test 05/05/17 17:30 White Blood Count 6.5 Red Blood Count 2.55 L Hemoglobin 8.3 L Hematocrit 25.9 L Mean Corpuscular Volume 101.6 H Mean Corpuscular Hemoglobin 32.5 Mean Corpuscular Hemoglobin Concent 32.0 Red Cell Distribution Width 18.3 #H Platelet Count 335 # Mean Platelet Volume 11.2 H Neutrophils % 75.0 Lymphocytes % 11.5 L Monocytes % 11.8 H Eosinophils % 0.6 Basophils % 0.3 Nucleated Red Blood Cells % 0.3 H Neutrophils # (Manual) 5 Lymphocytes # 0.8 Monocytes # 0.8 Eosinophils # 0.0 Basophils # 0.0 Nucleated Red Blood Cells # 0.0 Prothrombin Time 12.8 Prothrombin Time Ratio 1.0 INR International Normalized Ratio 0.96 Sodium Level 135 Potassium Level 5.4 H Chloride Level 101 Carbon Dioxide Level 25 Anion Gap 14 Blood Urea Nitrogen 30 H Creatinine 5.50 H Glucose Level 113 Calcium Level 10.2 Total Bilirubin 0.5 Direct Bilirubin 0.00 Indirect Bilirubin 0.5 Aspartate Amino Transf (AST/SGOT) 58 H Alanine Aminotransferase (ALT/SGPT) 49 Alkaline Phosphatase 399 H Troponin I 0.151 *H Total Protein 8.4 H Albumin 3.9 Globulin 4.50 H Albumin/Globulin Ratio 0.86 Lipase 50 REMI SIMPSON MD May 05, 2017 23:28
[2017-05-06] VITALS (8 sets, daily range): BP systolic 137–148; BP diastolic 68–86; PULSE 75–85; RESP 18–20; Ht 162.6 cm; Wt 63.6 kg
[2017-05-06] MEDS ORDERED: ONDANSETRON 4 MG INJ IV PRN
[2017-05-06] MEDS ORDERED: DOCUSATE SODIUM 100 MG CAP PO PRN
[2017-05-06] MEDS ORDERED: ACETAMINOPHEN 325 MG TAB PO PRN
[2017-05-06] MEDS ORDERED: HYDROCODONE/APAP (5/325) TAB PO PRN
[2017-05-06] MEDS ORDERED: BISACODYL (EC) 5 MG TAB PO PRN
[2017-05-06] MEDS ORDERED: ACETAMINOPHEN 650 MG SUPP PR PRN
[2017-05-06] MEDS ORDERED: NITROGLYCERIN (SL) 0.4 MG TAB SL PRN
[2017-05-06] MEDS ORDERED: NACL 0.9% 3 ML SYG IV SCH
[2017-05-06] MEDS: SOD CHLORIDE 0.9% 1,000 ML IV SCH ×2 (00:28→23:34)
[2017-05-06] MEDS: HYDROmorphONE 1 MG/ML SYG IV PRN ×5 (00:29→21:34)
[2017-05-06 01:32] LABS: TROPONIN-I 0.166 ng/ml (0.00-0.12)
[2017-05-06 01:48] LABS: CK-MB 0.24 ng/ml (0.0-2.4)
[2017-05-06] MEDS: SEVELAMER CARBONATE 0.8 GM PKT PO SCH ×3 (07:35→18:05)
[2017-05-06] MEDS: PANTOPRAZOLE (EC) 40 MG TAB PO SCH (07:39)
[2017-05-06 07:52] LABS: CREATINE KINASE < 20 IU/L (23-200)
[2017-05-06 08:51] LABS: CK-MB 0.27 ng/ml (0.0-2.4)
[2017-05-06 08:54] LABS: TROPONIN-I 0.162 ng/ml (0.00-0.12)
[2017-05-06] MEDS ORDERED: CEFTRIAXONE 1 GM/50 ML (PMX) 50 ML IVPB SCH (09:00)
[2017-05-06] MEDS: ENOXAPARIN 30 MG/0.3 ML SYG SC SCH (09:00)
--- NOTE | 2017-05-06 10:19 | CONS ---
Date/Time of Note Date/Time of Note DATE: 05/06/17 TIME: 09:56 Assessment/Plan Assessment/Plan Chief Complaint/Hosp Course 1.Cholecystitis: poss acalculous but patient with stated history of gallstones; continues to have pain; min elevated alk phos, ast -poss surgical intervention -cultures for poss infectious etiology -pain management 2. ESRD: -continue medical management 3. Elevated troponin: No acute cp; SR; poss 2/2 #2 -workup per medical team 4. Hyperkalemia -optimize lytes 5. Macrocytic anemia: No acute bleed -monitor and transfuse as needed Patient seen and examined in collaboration with Dr. Alex Frazier. Thank you. Problems: Consultation Date/Type/Reason Admit Date/Time May 05, 2017 at 18:31 Date of Consultation: May 06, 2017 Type of Consultation: surgical Reason for Consultation cholecystitis Referring Provider: REMI SIMPSON Hx of Present Illness Iveth Dang is a 47 yo woman who presents with history for fevers and epigastric abdominal pain since Wednesday. Pain is described as constant sharp with radiation to neck/shoulders. Pain is aggravated with positional changes. Associated symptoms include diaphoresis, poor appetite and neck/shoulder pain. Ultrasound of the gallbladder shows gallbladder wall thickening with pericholecystic fluid. General surgery was called to evaluate. Constitutional: diaphoresis, febrile Eyes: No visual change ENT: No congestion Respiratory: No cough, No shortness of breath Cardiovascular: No chest pain, No lightheadedness Gastrointestinal: pain, vomiting (daily bilious) Genitourinary: No dysuria, No flank pain Musculoskeletal: neck pain Skin: No bruising, No erythema, No pruritis Neurologic: No confusion, No dizziness, No headache Endocrine: dry skin Psychological: anxiety Past Medical History lupus ESRD on dialysis htn gallstones Past Surgical History splenectomy fistula placement Past Surgical Hx: other Family History Significant Family History: no pertinent family hx Social History Alcohol Use: none Smoking Status: Never smoker Drug Use: none Exam/Review of Systems Vital Signs Vitals Vital Signs Date Time Temp Pulse Resp B/P Pulse Ox O2 Delivery O2 Flow Rate FiO2 05/06/17 08:00 78 05/06/17 03:48 98.3 20 148/75 99 Room Air Exam Constitutional: alert, oriented Psych: anxiety Head: atraumatic, normocephalic Eyes: nl lids, nl sclera ENMT: No mucosa pink and moist (dry) Neck: non-tender, supple Respiratory: normal air movement, No congested cough Cardiovascular: regular rate and rhythm, No edema Gastrointestinal: bowel sounds, soft, tender, No distended Genitourinary - Female: nl external genitalia Musculoskeletal: nl gait and stance, No muscle weakness Extremities: normal pulses, No edema Neurological: nl mental status, nl speech, nl strength Skin: No rash or lesions Lymph: No nl lymph nodes Results Result Diagram: 05/05/17 1730 05/05/17 1730 Results 24 hrs Laboratory Tests Test 05/05/17 17:30 05/05/17 23:50 05/06/17 06:11 White Blood Count 6.5 Red Blood Count 2.55 L Hemoglobin 8.3 L Hematocrit 25.9 L Mean Corpuscular Volume 101.6 H Mean Corpuscular Hemoglobin 32.5 Mean Corpuscular Hemoglobin Concent 32.0 Red Cell Distribution Width 18.3 #H Platelet Count 335 # Mean Platelet Volume 11.2 H Neutrophils % 75.0 Lymphocytes % 11.5 L Monocytes % 11.8 H Eosinophils % 0.6 Basophils % 0.3 Nucleated Red Blood Cells % 0.3 H Neutrophils # (Manual) 5 Lymphocytes # 0.8 Monocytes # 0.8 Eosinophils # 0.0 Basophils # 0.0 Nucleated Red Blood Cells # 0.0 Prothrombin Time 12.8 Prothrombin Time Ratio 1.0 INR International Normalized Ratio 0.96 Sodium Level 135 Potassium Level 5.4 H Chloride Level 101 Carbon Dioxide Level 25 Anion Gap 14 Blood Urea Nitrogen 30 H Creatinine 5.50 H Glucose Level 113 Calcium Level 10.2 Total Bilirubin 0.5 Direct Bilirubin 0.00 Indirect Bilirubin 0.5 Aspartate Amino Transf (AST/SGOT) 58 H Alanine Aminotransferase (ALT/SGPT) 49 Alkaline Phosphatase 399 H Troponin I 0.151 *H 0.166 *H 0.162 *H Total Protein 8.4 H Albumin 3.9 Globulin 4.50 H Albumin/Globulin Ratio 0.86 Lipase 50 Creatine Kinase 21 L < 20 L Creatine Kinase Index 1.1 Creatinine Kinase MB (Mass) 0.24 0.27 Medications Medications Current Medications Amlodipine Besylate (Norvasc) 5 mg BID PO ; Start 05/06/17 at 09:00 Aspirin (Aspirin) 81 mg DAILY PO ; Start 05/06/17 at 09:00 Atorvastatin Calcium (Lipitor) 20 mg QHS PO ; Start 05/06/17 at 21:00 Carvedilol (Coreg) 25 mg BID PO ; Start 05/06/17 at 09:00 Cinacalcet (Sensipar) 60 mg DAILY PO ; Start 05/06/17 at 09:00 Diphenhydramine HCl (Benadryl) 50 mg Q12H PRN PO ITCHING; Start 05/06/17 at 00: 00 Docusate Sodium (Colace) 100 mg BID PRN PO CONSTIPATION; Start 05/06/17 at 00: 00 Folic Acid (Folic Acid) 1 mg DAILY PO ; Start 05/06/17 at 09:00 Hydralazine HCl (Apresoline) 50 mg DAILY PO ; Start 05/06/17 at 09:00 Lanthanum Carbonate (Fosrenol) 500 mg TID PO ; Start 05/06/17 at 09:00 Losartan Potassium (Cozaar) 50 mg BID PO ; Start 05/06/17 at 09:00 Pantoprazole 40 mg 40 mg DAILY@06 PO Last administered on 05/06/17 07:39; Admin Dose 40 MG; Start 05/06/17 at 06:00 Sodium Chloride (NS) 1,000 ml @ 25 mls/hr Q24H IV Last administered on 00:28; Admin Dose 25 MLS/HR; Start 05/05/17 at 23:34 Ondansetron HCl (Zofran Inj) 4 mg Q6H PRN IV NAUSEA AND/OR VOMITING Last administered on 05/06/17 04:48; Admin Dose 4 MG; Start 05/06/17 at 00:00 Acetaminophen (Tylenol Tab) 650 mg Q6H PRN PO PAIN LEVEL 1-3 OR FEVER; Start at 00:00 Acetaminophen (Tylenol Supp) 650 mg Q6H PRN [place] PAIN LEVEL 1-3 OR FEVER; Start 05/06/17 at 00:00 Acetaminophen/ Hydrocodone Bitart ([place] (5/325)) 1 tab Q6H PRN PO MODERATE PAIN LEVEL 4-6; Start 05/06/17 at 00:00 Hydromorphone HCl (Dilaudid) 0.5 mg Q4H PRN IV SEVERE PAIN LEVEL 7-10 Last administered on 8/24/17at 08:47; Admin Dose 0.5 MG; Start 05/06/17 at 00:00 Bisacodyl (Dulcolax) 5 mg DAILY PRN PO CONSTIPATION; Start 05/06/17 at 00:00 Enoxaparin Sodium 30 mg 30 mg DAILY SC ; Start 05/06/17 at 09:00 Ceftriaxone Sodium (Rocephin) 50 ml @ 100 mls/hr DAILY IVPB ; Start 05/06/17 at 09:00 NJ ANDRADE NP May 06, 2017 10:06 NJ ANDRADE NP May 06, 2017 10:06
[2017-05-06] MEDS: FOLIC ACID 1 MG TAB PO SCH (10:33)
[2017-05-06] MEDS: LANTHANUM 500 MG CHEW PO SCH ×3 (10:34→21:21)
[2017-05-06] MEDS: CINACALCET 30 MG TAB PO SCH (10:34)
[2017-05-06] MEDS: ASPIRIN 81 MG TAB PO SCH (10:37)
[2017-05-06] MEDS: AMLODIPINE 5 MG TAB PO SCH ×2 (10:41→21:24)
[2017-05-06] MEDS: LOSARTAN 50 MG TAB PO SCH ×2 (10:41→21:23)
--- NOTE | 2017-05-06 12:02 | HP ---
DATE OF ADMISSION: 05/05/2017 HISTORY OF PRESENT ILLNESS: The patient is a 47-year-old female, who came in with history of ESRD, hypertension, cardiomyopathy, history of coronary angiogram done at [facility]. No obstructive coronary artery disease. Patient also has history of and presents with abdominal pain. Noted to have possibly cholecystitis and has been admitted for further management. Patient's WBC 6.5, hematocrit 25.9, platelet count 225. Sodium 135, potassium 5.4. Troponin 0.151. Patient is going to be monitored for further management. Ultrasound of the gallbladder shows hepatomegaly. There is no cholelithiasis, although there is prominent gallbladder wall thickening and pericholecystic fluid suggestive of acute cholecystitis. PAST MEDICAL HISTORY: ESRD, hypertension, history of anemia, history of anxiety, history of hyperparathyroidism, history of cardiomyopathy, history of _ infection, history of coronary angiogram balloon in the past, history of CHF, history of lupus, history of hypophosphatemia. ALLERGIES: VALTREX. SOCIAL HISTORY: Negative. FAMILY HISTORY: Negative. MEDICATIONS: Patient is on: 1. Amlodipine. 2. Aspirin. 3. Lipitor. 4. Coreg. 5. Sensipar. 6. Diphenhydramine. 7. Docusate sodium. 8. Folic acid. 9. Hydralazine. 10. [place] carbonate. 11. Losartan. 12. Nitroglycerin. 13. Protonix. 14. Renvela. REVIEW OF SYSTEMS: As mentioned. HEENT: Unremarkable. RESPIRATORY: Unremarkable. CVS: No chest pain, palpitations. GASTROINTESTINAL: Abdominal pain as mentioned. GENITOURINARY: Unremarkable. MUSCULOSKELETAL: Unremarkable. PHYSICAL EXAMINATION: GENERAL: Patient is awake, alert. VITAL SIGNS: Blood pressure 126/55. HEENT: Atraumatic, normocephalic. Pupils equal reactive. No pale conjunctivae. NECK: Supple. LUNGS: Clear. CVS: S1, S2 normal. sm+ ABDOMEN: Soft. Bowel sounds positive. Tenderness in the right upper quadrant. No palpable masses or hepatosplenomegaly. EXTREMITIES: No cyanosis, clubbing. Trace edema. NEUROLOGIC: Patient is awake, alert. No focal deficit. DATA: As mentioned above. IMPRESSION: 1. Abdominal pain. 2. Possible cholecystitis. 3. Positive troponin. 4. End-stage renal disease. 5. Hypertension. 6. Cardiomyopathy. 7. low ejection fraction w ACID device placement. 8. Hyperkalemia. PLAN: To give this patient a clear liquid diet, IV fluids, Bentyl, pain medications, antibiotics. Surgical consultation. Troponin will be sent. Home medications will be reviewed and continued. Dictated By: Jensen Wilkerson MD /[email or web address]/bret /Document#: [id number] ERIKA
[2017-05-06 12:42] LABS: BASOPHILS % 0.4 % (0.0-2.0); EOSINOPHILS # 0.1 10^3/ul (0.0-0.5); EOSINOPHILS % 0.8 % (0.0-7.0); HEMATOCRIT 27.1 % (37.0-47.0); HEMOGLOBIN 8.4 g/dl (12.0-16.0); LYMPHOCYTES # 0.9 10^3/ul (0.8-2.9); LYMPHOCYTES % 11.4 % (15.0-51.0); MEAN CORPUSCULAR HEMOGLOBIN 32.8 pg (29.0-33.0); MEAN CORPUSCULAR VOLUME 105.9 fl (82.0-101.0); MEAN PLATELET VOLUME 10.7 fl (7.4-10.4); MONOCYTE # 0.9 10^3/ul (0.3-0.9); NEUTROPHILS % 75.8 % (39.0-77.0); NUCLEATED RED BLOOD CELLS% 0.3 /100WBC (0.0-0.0); PLATELET COUNT 377 10^3/UL (140-415); RED BLOOD COUNT 2.56 10^6/ul (4.20-5.40); RED CELL DISTRIBUTION WIDTH 18.3 % (11.5-14.5); WHITE BLOOD COUNT 7.7 10^3/ul (4.8-10.8)
[2017-05-06 13:00] LABS: ALBUMIN 3.1 g/dl (3.3-4.9); BILIRUBIN,DIRECT 0.3 mg/dl (0.00-0.20); BILIRUBIN,INDIRECT 0.1 mg/dl (0-1.1); BILIRUBIN,TOTAL 0.4 mg/dl (0.2-1.3); TOTAL PROTEIN 7.3 g/dl (6.1-8.1)
[2017-05-06 13:01] LABS: CALCIUM 10.7 mg/dl (8.4-10.2); CREATININE 7.2 mg/dl (0.44-1.00); POTASSIUM 5.9 mmol/L (3.5-5.1)
[2017-05-06] MEDS ORDERED: DIPHENHYDRAMINE 50 MG INJ IV ONE (15:00)
[2017-05-06] MEDS: ONDANSETRON 4 MG INJ IV PRN (15:37)
[2017-05-06] MEDS ORDERED: NA POLYST SULFON 15 GM/60 ML BTL PO ONE ×2 (17:30)
[2017-05-06] MEDS ORDERED: SOD CHLORIDE 0.9% 1,000 ML IV PRN (17:42)
--- NOTE | 2017-05-06 17:54 | PN ---
Date/Time of Note Date/Time of Note DATE: 05/06/17 TIME: 17:46 Assessment/Plan VTE Prophylaxis VTE Prophylaxis Intervention: LMWH Lines/Catheters IV Catheter Type (from Nrsg): Peripheral IV Assessment/Plan Chief Complaint/Hosp Course Gen: Awake,alert Neck:supple Lungs:clear to auscultate CVS: Regular rate and rhthym Abdomen: +TTP RUQ Ext :no edema +LUE fistula +bruit+ thrill A/P 47 y/o 1. Acalculous cholecystitis 2. Hyperkalemia 3 ESRD on HD M/W/F 4 ? Elevated Troponin? ACS however in ESRD +elevated trop 5 HTN Plan - NPO, iv abx with Rocephin/flagyl - Surgery consult following - Kayexlate if K not less < 5.5 will need HD today - Cards consult - ECHO - C/W HD - GI/DVT prophylaxsis Problems: Subjective 24 Hr Interval Summary Free Text/Dictation +Abdominal pain +nausea Exam/Review of Systems Vital Signs Vitals Vital Signs Date Time Temp Pulse Resp B/P Pulse Ox O2 Delivery O2 Flow Rate FiO2 05/06/17 16:36 80 05/06/17 15:32 99.2 18 144/68 98 05/06/17 10:44 Room Air Results Result Diagram: 05/06/17 1209 05/06/17 1215 Results 24 hrs Laboratory Tests Test 05/05/17 23:50 05/06/17 06:11 05/06/17 12:09 05/06/17 12:15 Creatine Kinase 21 L < 20 L Creatine Kinase Index 1.1 Creatinine Kinase MB (Mass) 0.24 0.27 Troponin I 0.166 *H 0.162 *H White Blood Count 7.7 Red Blood Count 2.56 L Hemoglobin 8.4 L Hematocrit 27.1 L Mean Corpuscular Volume 105.9 H Mean Corpuscular Hemoglobin 32.8 Mean Corpuscular Hemoglobin Concent 31.0 L Red Cell Distribution Width 18.3 H Platelet Count 377 Mean Platelet Volume 10.7 H Neutrophils % 75.8 Lymphocytes % 11.4 L Monocytes % 11.0 Eosinophils % 0.8 Basophils % 0.4 Nucleated Red Blood Cells % 0.3 H Neutrophils # (Manual) 5.9 Lymphocytes # 0.9 Monocytes # 0.9 Eosinophils # 0.1 Basophils # 0.0 Nucleated Red Blood Cells # 0.0 Sodium Level 140 Potassium Level 5.9 H Chloride Level 99 Carbon Dioxide Level 24 Anion Gap 23 #H Blood Urea Nitrogen 41 #H Creatinine 7.20 H Glucose Level 104 Calcium Level 10.7 H Total Bilirubin 0.4 Direct Bilirubin 0.30 #H Indirect Bilirubin 0.1 Aspartate Amino Transf (AST/SGOT) 37 Alanine Aminotransferase (ALT/SGPT) 47 Alkaline Phosphatase 322 H Total Protein 7.3 # Albumin 3.1 L Amylase Level 84 Lipase 23 Medications Medications Current Medications Amlodipine Besylate (Norvasc) 5 mg BID PO Last administered on 05/06/17 10:41 ; Admin Dose 5 MG; Start 05/06/17 at 09:00 Aspirin (Aspirin) 81 mg DAILY PO Last administered on 05/06/17 10:37; Admin Dose 81 MG; Start 05/06/17 at 09:00 Atorvastatin Calcium (Lipitor) 20 mg QHS PO ; Start 05/06/17 at 21:00 Carvedilol (Coreg) 25 mg BID PO Last administered on 05/06/17 10:41; Admin Dose 25 MG; Start 05/06/17 at 09:00 Cinacalcet (Sensipar) 60 mg DAILY PO Last administered on 05/06/17 10:34; Admin Dose 60 MG; Start 05/06/17 at 09:00 Diphenhydramine HCl (Benadryl) 50 mg Q12H PRN PO ITCHING; Start 05/06/17 at 00: 00 Docusate Sodium (Colace) 100 mg BID PRN PO CONSTIPATION; Start 05/06/17 at 00: 00 Folic Acid (Folic Acid) 1 mg DAILY PO Last administered on 05/06/17 10:33; Admin Dose 1 MG; Start 05/06/17 at 09:00 Lanthanum Carbonate (Fosrenol) 500 mg TID PO Last administered on 05/06/17 10: 34; Admin Dose 500 MG; Start 05/06/17 at 09:00 Losartan Potassium (Cozaar) 50 mg BID PO Last administered on 05/06/17 10:41; Admin Dose 50 MG; Start 05/06/17 at 09:00 Pantoprazole 40 mg 40 mg DAILY@06 PO Last administered on 05/06/17 07:39; Admin Dose 40 MG; Start 05/06/17 at 06:00 Sodium Chloride (NS) 1,000 ml @ 25 mls/hr Q24H IV Last administered on 00:28; Admin Dose 25 MLS/HR; Start 05/05/17 at 23:34 Acetaminophen (Tylenol Tab) 650 mg Q6H PRN PO PAIN LEVEL 1-3 OR FEVER; Start at 00:00 Acetaminophen (Tylenol Supp) 650 mg Q6H PRN [place] PAIN LEVEL 1-3 OR FEVER; Start 05/06/17 at 00:00 Acetaminophen/ Hydrocodone Bitart ([place] (5/325)) 1 tab Q6H PRN PO MODERATE PAIN LEVEL 4-6; Start 05/06/17 at 00:00 Hydromorphone HCl (Dilaudid) 0.5 mg Q4H PRN IV SEVERE PAIN LEVEL 7-10 Last administered on 05/06/17 15:33; Admin Dose 0.5 MG; Start 05/06/17 at 00:00 Bisacodyl (Dulcolax) 5 mg DAILY PRN PO CONSTIPATION; Start 05/06/17 at 00:00 Enoxaparin Sodium (Lovenox) 30 mg DAILY SC ; Start 05/06/17 at 09:00 Hydralazine HCl (Apresoline) 50 mg BID PO ; Start 05/06/17 at 21:00 Ondansetron HCl 4 mg 4 mg Q4H PRN IV NAUSEA AND/OR VOMITING Last administered on 05/06/17 15:37; Admin Dose 4 MG; Start 05/06/17 at 15:00 Ceftriaxone Sodium 50 ml @ 100 mls/hr Q24H IVPB ; Start 05/06/17 at 18:00; Status UNV Metronidazole (Flagyl 500 Mg (Pmx)) 100 ml @ 100 mls/hr Q8 IVPB ; Start at 22:00; Status UNV KHANG WATSON MD May 06, 2017 17:54
[2017-05-06] MEDS ORDERED: ALBUMIN HUMAN 25% 100 ML IV PRN (18:00)
[2017-05-06] MEDS ORDERED: HEPARIN 1000 UNITS/ML 10 ML INJ CATHETER SCH (18:00)
[2017-05-06] MEDS ORDERED: CEFEPIME 1GM/50 ML (PMX) 50 ML IVPB ONE (18:00)
[2017-05-06] MEDS ORDERED: NA POLYST SULFON 15 GM/60 ML BTL PR ONE (20:00)
[2017-05-06] MEDS: ATORVASTATIN 20 MG TAB PO SCH (21:21)
[2017-05-06] MEDS: metroNIDAZOLE 500 MG/NS (PMX) 100 ML IVPB SCH (21:35)
[2017-05-07] VITALS (17 sets, daily range): BP systolic 120–169; BP diastolic 65–92; PULSE 78–91; RESP 16–18
--- NOTE | 2017-05-07 05:10 | CONS ---
DATE OF ADMISSION: 05/05/2017 DATE OF CONSULTATION: 05/06/2017 REASON FOR CONSULTATION: Positive troponin. REQUESTING PHYSICIAN: Jensen Wilkerson MD HISTORY OF PRESENT ILLNESS: Ms. Dang is a 47-year-old female with a history of endstage renal disease, hypertension, cardiomyopathy with a decreased left ventricular ejection fraction, last known EF approximately 40 percent. She had a left heart catheterization in December 2015 with no significant coronary artery disease, endstage renal disease with hemodialysis, AICD, history of lupus, who presented with complaints of abdominal pain. Upon arrival, temperature 98.1, blood pressure 200/99, pulse 74, respiratory rate 16, saturation 76 percent. The patient's labs revealed a white cell count of 7.3, hemoglobin 10.7, platelet count 179,000. Sodium 138, potassium 5.7, creatinine of 12.8, BUN of 86, AST 25, ALT 40. Troponin negative. BNP of 25,100. INR 0.9. Patient underwent a chest x- ray revealing no acute cardiopulmonary abnormalities. There is no ECG currently in the chart for my review at this time. Patient is admitted to the floor. Denies chest pain. Has had troponin cycled with a slight up trend of 0.166 and then down trended, 0.162. Patient denies chest pain at this time. PAST MEDICAL HISTORY: As above in HPI. MEDICATIONS CURRENTLY IN THE HOSPITAL: 1. Lipitor 20 mg at bedtime. 2. Norvasc 5 mg p.o. b.i.d. 3. Aspirin 81 mg daily. 4. Carvedilol 25 mg p.o. b.i.d. 5. Sensipar. 6. Folic acid. 7. Hydralazine 50 mg daily. 8. Losartan 50 mg p.o. b.i.d. 9. Lovenox 30 mg subcu daily. 10. Fosrenol. 11. Ceftriaxone IV daily. 12. Protonix 40 mg daily. 13. Colace. 14. Benadryl. 15. Tylenol. 16. IV fluid hydration. ALLERGIES: VALACYCLOVIR. SOCIAL HISTORY: No tobacco, ETOH or illicit drug use. FAMILY HISTORY: No sudden cardiac or early CAD. REVIEW OF SYSTEMS: As above in HPI. CONSTITUTIONAL: No fevers or chills. PULMONARY: No current shortness. CARDIOVASCULAR: Cardiomyopathy. GASTROINTESTINAL: No vomiting. GENITOURINARY: No hematuria. MUSCULOSKELETAL: Degenerative joint disease. PSYCH: Patient denies having positive psych history. NEUROLOGIC: No documented CVA. ENDOCRINE: No documented diabetes mellitus. PHYSICAL EXAMINATION: VITAL SIGNS: Temperature 98.3, blood pressure most recently 144/86, pulse 70, respiratory rate 16, saturating 99 percent. GENERAL: The patient is alert, awake, complaining of abdominal pain. NECK: JVP approximately at 9 cm water. CHEST: Fair with mildly decreased breath sounds at the bases bilaterally. HEART: Regular rate and rhythm. Normal S1, S2. A 1/6 systolic murmur. Nondisplaced PMI. ABDOMEN: Positive bowel sounds. Positive tenderness to palpation. EXTREMITIES: No pitting edema, 1+ pulses. Bilateral posterior tibial as above in HPI. LABORATORY: Most recent today: Sodium 140, potassium 5.9, creatinine of 7.2, BUN of 41. White count 7.7, hemoglobin 8.4, platelet count 377,000. IMAGING STUDIES: Right upper quadrant ultrasound revealing hepatomegaly, no cholelithiasis, although there is prominent gallbladder wall thickening and pericholecystic fluid suggestive of acute cholecystitis, atrophic and markedly echogenic right kidney with multiple small cysts suggestive of medical renal disease, no right hydronephrosis. ECG: No electrocardiograms for my review at this time. IMPRESSION: 1. Positive troponin in the setting of renal failure with a history of nonischemic cardiomyopathy by catheterization December 2015, thus likely a marker of chronic cardiomyopathy more than suggestive of acute coronary syndrome. 2. Cardiomyopathy with decreased left ventricular ejection fraction. 3. Hypertension. 4. Dyslipidemia. 5. Abdominal pain, possible acute cholecystitis. 6. Endstage renal dialysis on hemodialysis. 7. Anemia. 8. Hyperkalemia. RECOMMENDATIONS: 1. At this time, would maintain patient on telemetry monitoring to follow rhythm and rate closely. 2. Continue to trend the patient's cardiac enzymes to assess for any significant ongoing cardiac damage. 3. Continue the patient's current Norvasc, carvedilol and hydralazine but change hydralazine dosing parameters just to improve overall systolic blood pressure control and change from daily to likely b.i.d. or t.i.d. and as well as losartan 50 mg p.o. b.i.d. 4. Continue patient's antibiotics and follow up all culture data. 5. Ongoing GI and surgical evaluation of possible acute cholecystitis. 6. Check a 2D echo for reassessment of the patient's ejection fraction in the setting of positive troponins and possible need for surgery. 7. Continue patient's aspirin for prophylaxis of cardiac stents. Thank you for allowing me to take part in the care of this patient. I will continue to follow very closely with you. Further recommendations will be made inpatient hospital course. Dictated By: Javier Breen /wenceslao/adam /Document#: [id number] CC: Jensen Wilkerson MD;*EndCC* MTDD
[2017-05-07] MEDS: PANTOPRAZOLE (EC) 40 MG TAB PO SCH (05:30)
[2017-05-07] MEDS: metroNIDAZOLE 500 MG/NS (PMX) 100 ML IVPB SCH ×3 (05:30→21:45)
[2017-05-07] MEDS: HYDROmorphONE 1 MG/ML SYG IV PRN ×4 (05:31→20:11)
[2017-05-07] MEDS ORDERED: DIPHENHYDRAMINE 50 MG INJ IM PRN (07:30)
[2017-05-07 07:41] LABS: BASOPHILS % 0.4 % (0.0-2.0); EOSINOPHILS % 0.4 % (0.0-7.0); HEMATOCRIT 24.5 % (37.0-47.0); HEMOGLOBIN 7.8 g/dl (12.0-16.0); LYMPHOCYTES # 0.9 10^3/ul (0.8-2.9); LYMPHOCYTES % 13.1 % (15.0-51.0); MEAN CORPUSCULAR HEMOGLOBIN 32.6 pg (29.0-33.0); MEAN CORPUSCULAR HGB CONC 31.8 g/dl (32.0-37.0); MEAN CORPUSCULAR VOLUME 102.5 fl (82.0-101.0); MEAN PLATELET VOLUME 10.6 fl (7.4-10.4); MONOCYTE # 0.8 10^3/ul (0.3-0.9); MONOCYTES % 11.8 % (0.0-11.0); NEUTROPHILS % 73.7 % (39.0-77.0); NUCLEATED RED BLOOD CELLS% 0.4 /100WBC (0.0-0.0); PLATELET COUNT 408 10^3/UL (140-415); RED BLOOD COUNT 2.39 10^6/ul (4.20-5.40); RED CELL DISTRIBUTION WIDTH 18.1 % (11.5-14.5); WHITE BLOOD COUNT 6.9 10^3/ul (4.8-10.8)
[2017-05-07 07:52] LABS: PHOSPHORUS 5.2 mg/dl (2.5-4.9)
[2017-05-07 07:55] LABS: ALBUMIN 3.4 g/dl (3.3-4.9); ALBUMIN/GLOBULIN RATIO 0.75; BILIRUBIN,INDIRECT 0.1 mg/dl (0-1.1); BILIRUBIN,TOTAL 0.1 mg/dl (0.2-1.3); CALCIUM 9.5 mg/dl (8.4-10.2); CREATINE KINASE < 20 IU/L (23-200); CREATININE 5.43 mg/dl (0.44-1.00); POTASSIUM 3.4 mmol/L (3.5-5.1); TOTAL PROTEIN 7.9 g/dl (6.1-8.1)
[2017-05-07] MEDS: SEVELAMER CARBONATE 0.8 GM PKT PO SCH ×3 (08:00→17:27)
[2017-05-07] MEDS ORDERED: DIPHENHYDRAMINE 50 MG INJ IV ONE (08:00)
[2017-05-07 08:06] LABS: CK-MB 0.31 ng/ml (0.0-2.4)
--- NOTE | 2017-05-07 09:58 | PN ---
Date/Time of Note Date/Time of Note DATE: 05/07/17 TIME: 09:43 Assessment/Plan Lines/Catheters IV Catheter Type (from Nrs): Peripheral IV Assessment/Plan Chief Complaint/Hosp Course 1.Cholecystitis: poss acalculous but patient with stated history of gallstones; continues to have pain; min elevated alk phos, ast normalized; surgery cancelled troponins increasing - poss surgical intervention when medically cleared -pain management 2. ESRD: -continue medical management 3. Elevated troponin: No acute cp; SR; poss 2/2 #2; increasing -per cardiology 4. Hyperkalemia: improved -optimize lytes 5. Macrocytic anemia: No acute bleed -monitor and transfuse as needed 6. Vomiting: vomiting daily per patient; vomited overnight -?gi consult Patient seen and examined in collaboration with Dr. Alex Frazier. Thank you. Problems: Subjective 24 Hr Interval Summary Surgery cancelled- Troponin increasing but no chest pain, no change in tele rhythm. Continues to have abdominal pain. Vomited last night. No current nausea/ vomiting. No fevers overnight, palpitations, sob, congested cough, chavarria, dizziness. Hungry. Exam/Review of Systems Vital Signs Vitals Vital Signs Date Time Temp Pulse Resp B/P Pulse Ox O2 Delivery O2 Flow Rate FiO2 05/07/17 09:01 82 05/07/17 07:30 16 05/07/17 03:57 97.7 133/79 99 05/06/17 10:44 Room Air Intake and Output 05/06/17 05/06/17 05/07/17 15:00 23:00 07:00 Intake Total 30 ml Balance 30 ml Exam Free Text/Dictation Constitutional: alert, oriented Psych: anxiety Head: atraumatic, normocephalic Eyes: nl lids, nl sclera ENMT: No mucosa pink and moist (dry) Neck: non-tender, supple Respiratory: normal air movement, No congested cough Cardiovascular: regular rate and rhythm, SR No edema Gastrointestinal: bowel sounds, soft, tender, No distended Genitourinary - Female: nl external genitalia Musculoskeletal: nl gait and stance, No muscle weakness Extremities: normal pulses, No edema Neurological: nl mental status, nl speech, nl strength Skin: No rash or lesions Lymph: No nl lymph nodes Results Result Diagram: 05/07/17 0710 05/07/17 07 NJ ANDRADE NP May 07, 2017 09:54
--- NOTE | 2017-05-07 12:13 | RADRPT ---
Echocardiogram Report ADDENDUM Patient Name: ANYA GO Gender: Female Date: 1970 Study Date: 07-May-2017 Fast Food Assistant Restaurant Manager: FAVIAN KUMAR Location: [id number] Ref. Physician: KHANG WATSON Quality: Good Procedures: Transthoracic echocardiogram with complete 2D, M-Mode, and doppler examination. Indications: Evaluate Left Ventricular function. 2D/M Mode Doppler Measurement Value Normal Ranges Measurement Value Normal Ranges LVIDd 2D 5.3 3.5 - 5.6 cm AV Mean Henry 1.6 m/sec LVIDs 2D 3.3 2.1 - 4.1 cm AV Mean PG 12.1 mmHg LVPWd 2D 1.3 0.6 - 1.1 cm AV Peak Henry 2.3 m/sec IVSd 2D 1.3 0.6 - 1.1 cm AV Peak PG 21.1 mmHg AoR Diam 2D 3.2 2.0 - 3.7 cm AV VTI 34.7 cm EDV 2D 137.2 cm3 AI Peak PG 43.6 mmHg ESV 2D 35.8 cm3 AI Peak Henry 3.3 m/sec LA Dimen 2D 4.4 2.3 - 4.0 cm AI PHT 256.4 msec LVOT Mean Henry 0.9 m/sec LVOT Mean PG 4.1 mmHg LVOT Peak Henry 1.4 m/sec LVOT Peak PG 0.0 mmHg LVOT VTI 21.9 cm MV E Peak Henry 1.1 m/sec MV A Peak Henry 0.8 m/sec MV E/A 1.3 MV Decel Time 226 msec MV Decel [place] 5 MV E/A 1.3 TR Peak Henry 3.0 m/sec TR Peak PG 38.0 mmHg RVSP 54.9 mmHg Findings Left Ventricle: Normal left ventricular cavity size. Moderate concentric left ventricular hypertrophy. Mild global left ventricular systolic dysfunction. Ejection fraction is visually estimated at 40 %. Tissue Doppler/Mitral Doppler indices are within normal limits. Right Ventricle: Normal right ventricular size. Normal right ventricular systolic function. Left Atrium: The left atrium is normal in size. Right Atrium: The right atrium is normal in size. Mitral Valve: Trace mitral regurgitation. Aortic Valve: Mild aortic valve regurgitation. Tricuspid Valve: Estimated peak PA systolic pressure 69 mmHg. There is trace to mild tricuspid regurgitation. Pulmonic Valve: There is trace pulmonic regurgitation. Pericardium: Small pericardial effusion. Aorta: Normal aortic root. IVC: Normal size and normal respiratory collapse consistent with normal right atrial pressure. Pulmonary Artery: Normal pulmonary artery size. Not well visualized. Conclusions 1.Normal left ventricular cavity size. Moderate concentric left ventricular hypertrophy. Mild global left ventricular systolic dysfunction. Ejection fraction is visually estimated at 40 %. Tissue Doppler/Mitral Doppler indices are within normal limits. 2.Normal right ventricular size. Normal right ventricular systolic function. 3.Trace mitral regurgitation. 4.Mild aortic valve regurgitation. 5.Estimated peak PA systolic pressure 69 mmHg. There is trace to mild tricuspid regurgitation. 6.Small to moderate pericardial effusion without evidence of tamponade. Electronically Signed By: William Spencer 10-May-2017 19:23:41 -0700 [ADDENDUM] Patient Name: ANYA GO Study Date: 07-May-2017 [id number]
[2017-05-07] MEDS: CEFTRIAXONE 1 GM/50 ML (PMX) 50 ML IVPB SCH (12:34)
--- NOTE | 2017-05-07 12:44 | PN ---
TONY SANDOVAL 05/07/17 1244: Date/Time of Note Date/Time of Note DATE: 05/07/17 TIME: 12:39 Assessment/Plan VTE Prophylaxis VTE Prophylaxis Intervention: ambulation Lines/Catheters IV Catheter Type (from Nrsg): Peripheral IV Assessment/Plan Chief Complaint/Hosp Course 1. Acalculous cholecystitis 2. Hyperkalemia 3. ESRD on HD M/W/F 4. Hx of drug abuse 5 HTN, uncontrolled 6. Anemia 7. Elevated troponins Problems: Assessment/Plan 1. Pending surgery 2. continue telemetry 3. Continue monitor chest pain Subjective 24 Hr Interval Summary Respiratory: no complaints Cardiovascular: no complaints Gastrointestinal: no complaints Musculoskeletal: no complaints (periodic abdominal pain) Exam/Review of Systems Vital Signs Vitals Vital Signs Date Time Temp Pulse Resp B/P Pulse Ox O2 Delivery O2 Flow Rate FiO2 05/07/17 12:27 88 05/07/17 11:42 98.2 16 169/88 97 167/92 05/06/17 10:44 Room Air Intake and Output 05/06/17 05/06/17 05/07/17 15:00 23:00 07:00 Intake Total 30 ml Balance 30 ml Exam Constitutional: alert ENMT: nl external ears & nose Neck: supple Respiratory: clear to auscultation Cardiovascular: regular rate and rhythm Results Result Diagram: 05/07/17 0710 05/07/17 0710 Results 24 hrs Laboratory Tests Test 05/07/17 07:10 White Blood Count 6.9 Red Blood Count 2.39 L Hemoglobin 7.8 L Hematocrit 24.5 L Mean Corpuscular Volume 102.5 H Mean Corpuscular Hemoglobin 32.6 Mean Corpuscular Hemoglobin Concent 31.8 L Red Cell Distribution Width 18.1 H Platelet Count 408 Mean Platelet Volume 10.6 H Neutrophils % 73.7 Lymphocytes % 13.1 L Monocytes % 11.8 H Eosinophils % 0.4 Basophils % 0.4 Nucleated Red Blood Cells % 0.4 H Neutrophils # (Manual) 5.1 Lymphocytes # 0.9 Monocytes # 0.8 Eosinophils # 0.0 Basophils # 0.0 Nucleated Red Blood Cells # 0.0 Sodium Level 143 Potassium Level 3.4 #L Chloride Level 99 Carbon Dioxide Level 26 Anion Gap 21 H Blood Urea Nitrogen 32 H Creatinine 5.43 H Glucose Level 103 Calcium Level 9.5 Phosphorus Level 5.2 H Magnesium Level 2.0 Total Bilirubin 0.1 L Direct Bilirubin 0.00 # Indirect Bilirubin 0.1 Aspartate Amino Transf (AST/SGOT) 33 Alanine Aminotransferase (ALT/SGPT) 49 Alkaline Phosphatase 383 H Creatine Kinase < 20 L Creatine Kinase Index Creatinine Kinase MB (Mass) 0.31 Troponin I 0.170 *H Total Protein 7.9 Albumin 3.4 Globulin 4.50 H Albumin/Globulin Ratio 0.75 Serum HCG, Qualitative NEGATIVE Medications Medications Current Medications Amlodipine Besylate (Norvasc) 5 mg BID PO Last administered on 05/06/17 21:24 ; Admin Dose 5 MG; Start 05/06/17 at 09:00 Aspirin (Aspirin) 81 mg DAILY PO Last administered on 05/06/17 10:37; Admin Dose 81 MG; Start 05/06/17 at 09:00; Status Future hold Atorvastatin Calcium (Lipitor) 20 mg QHS PO Last administered on 05/06/17 21: 21; Admin Dose 20 MG; Start 05/06/17 at 21:00 Carvedilol (Coreg) 25 mg BID PO Last administered on 05/06/17 21:23; Admin Dose 25 MG; Start 05/06/17 at 09:00 Cinacalcet (Sensipar) 60 mg DAILY PO Last administered on 05/06/17 10:34; Admin Dose 60 MG; Start 05/06/17 at 09:00 Diphenhydramine HCl (Benadryl) 50 mg Q12H PRN PO ITCHING; Start 05/06/17 at 00: 00 Docusate Sodium (Colace) 100 mg BID PRN PO CONSTIPATION; Start 05/06/17 at 00: 00 Folic Acid (Folic Acid) 1 mg DAILY PO Last administered on 05/06/17 10:33; Admin Dose 1 MG; Start 05/06/17 at 09:00 Lanthanum Carbonate (Fosrenol) 500 mg TID PO Last administered on 05/06/17 21: 21; Admin Dose 500 MG; Start 05/06/17 at 09:00 Losartan Potassium (Cozaar) 50 mg BID PO Last administered on 05/06/17 21:23; Admin Dose 50 MG; Start 05/06/17 at 09:00 Pantoprazole 40 mg 40 mg DAILY@06 PO Last administered on 05/07/17 05:30; Admin Dose 40 MG; Start 05/06/17 at 06:00 Sodium Chloride (NS) 1,000 ml @ 25 mls/hr Q24H IV Last administered on 23:34; Admin Dose 25 MLS/HR; Start 05/05/17 at 23:34 Acetaminophen (Tylenol Tab) 650 mg Q6H PRN PO PAIN LEVEL 1-3 OR FEVER; Start at 00:00 Acetaminophen (Tylenol Supp) 650 mg Q6H PRN [place] PAIN LEVEL 1-3 OR FEVER; Start 05/06/17 at 00:00 Acetaminophen/ Hydrocodone Bitart ([place] (5/325)) 1 tab Q6H PRN PO MODERATE PAIN LEVEL 4-6; Start 05/06/17 at 00:00 Hydromorphone HCl (Dilaudid) 0.5 mg Q4H PRN IV SEVERE PAIN LEVEL 7-10 Last administered on 05/07/17 05:31; Admin Dose 0.5 MG; Start 05/06/17 at 00:00 Bisacodyl (Dulcolax) 5 mg DAILY PRN PO CONSTIPATION; Start 05/06/17 at 00:00 Enoxaparin Sodium (Lovenox) 30 mg DAILY SC ; Start 05/06/17 at 09:00; Status Future hold Hydralazine HCl (Apresoline) 50 mg BID PO Last administered on 05/06/17 21:22 ; Admin Dose 50 MG; Start 05/06/17 at 21:00 Ondansetron HCl 4 mg 4 mg Q4H PRN IV NAUSEA AND/OR VOMITING Last administered on 05/06/17 15:37; Admin Dose 4 MG; Start 05/06/17 at 15:00 Ceftriaxone Sodium 50 ml @ 100 mls/hr Q24H IVPB Last administered on 12:34; Admin Dose 100 MLS/HR; Start 05/07/17 at 10:30 Metronidazole 100 ml @ 100 mls/hr Q8 IVPB Last administered on 05/07/17 05:30 ; Admin Dose 100 MLS/HR; Start 05/06/17 at 22:00 Sodium Chloride (NS) 1,000 ml @ 0 mls/hr Q0M PRN IV TO KEEP SBP ABOVE 90; Start 05/06/17 at 17:42 KHANG WATSON MD 05/07/17 1522: Assessment/Plan Assessment/Plan Assessment/Plan Stress test per Dr Spencer tmw preop Exam/Review of Systems Results Result Diagram: 05/07/17 0710 05/07/17 0710 TONY SANDOVAL May 07, 2017 12:44 KHANG WATSON MD May 07, 2017 15:22
[2017-05-07] MEDS: LANTHANUM 500 MG CHEW PO SCH ×3 (13:00→21:45)
--- NOTE | 2017-05-07 13:03 | CONS ---
Date/Time of Note Date/Time of Note DATE: 05/07/17 TIME: 12:58 Assessment/Plan Assessment/Plan Chief Complaint/Hosp Course IMPRESSION: 1. Positive troponin in the setting of renal failure with a history of nonischemic cardiomyopathy by catheterization December 2015, thus likely a marker of chronic cardiomyopathy more than suggestive of acute coronary syndrome.-minimal uptrend/NO cp 2. Cardiomyopathy with decreased left ventricular ejection fraction. 3. Hypertension. 4. Dyslipidemia. 5. Abdominal pain, possible acute cholecystitis. 6. Endstage renal dialysis on hemodialysis. 7. Anemia. 8. Hyperkalemia-improved Recc: -Tele -serial ecg's -will f/u echo -Continue coreg/hydralazine/norvasc -continue statin -HD for volume removal -asa held due to worsening anemia -Lexiscan stress test in am to further asses significance of positive troponins in a preoperative state Problems: Consultation Date/Type/Reason Admit Date/Time May 05, 2017 at 18:31 Initial Consult Date 05/06/17 Type of Consultation: cardiology Reason for Consultation positive troponin Referring Provider: REMI SIMPSON MD Exam/Review of Systems Vital Signs Vitals Vital Signs Date Time Temp Pulse Resp B/P Pulse Ox O2 Delivery O2 Flow Rate FiO2 05/07/17 12:27 88 05/07/17 11:42 98.2 16 169/88 97 167/92 05/06/17 10:44 Room Air Intake and Output 05/06/17 05/06/17 05/07/17 15:00 23:00 07:00 Intake Total 30 ml Balance 30 ml Exam Review of Systems: CONSTITUTIONAL: No fevers, chills. PULMONARY: No sob CARDIOVASCULAR: No chest pain/palpitations GASTROINTESTINAL: No nausea/vomiting. GENITOURINARY: No hematuria/dysuria. MUSCULOSKELETAL: No myagias/arthalgias. PSYCHIATRIC: The patient denies depression. NEUROLOGIC: No weakness Constitutional: alert, oriented Psych: no complaints Head: normocephalic ENMT: mucosa pink and moist Neck: jvd (cm wATER), supple Respiratory: diminished breath sounds Cardiovascular: regular rate and rhythm Gastrointestinal: non-tender, soft Musculoskeletal: muscle tone Extremities: edema (TRACE/b), normal pulses Neurological: other (nO FOCAL DEFICITS) Results Result Diagram: 05/07/17 0710 05/07/17 0710 Results 24 hrs Laboratory Tests Test 05/07/17 07:10 White Blood Count 6.9 Red Blood Count 2.39 L Hemoglobin 7.8 L Hematocrit 24.5 L Mean Corpuscular Volume 102.5 H Mean Corpuscular Hemoglobin 32.6 Mean Corpuscular Hemoglobin Concent 31.8 L Red Cell Distribution Width 18.1 H Platelet Count 408 Mean Platelet Volume 10.6 H Neutrophils % 73.7 Lymphocytes % 13.1 L Monocytes % 11.8 H Eosinophils % 0.4 Basophils % 0.4 Nucleated Red Blood Cells % 0.4 H Neutrophils # (Manual) 5.1 Lymphocytes # 0.9 Monocytes # 0.8 Eosinophils # 0.0 Basophils # 0.0 Nucleated Red Blood Cells # 0.0 Sodium Level 143 Potassium Level 3.4 #L Chloride Level 99 Carbon Dioxide Level 26 Anion Gap 21 H Blood Urea Nitrogen 32 H Creatinine 5.43 H Glucose Level 103 Calcium Level 9.5 Phosphorus Level 5.2 H Magnesium Level 2.0 Total Bilirubin 0.1 L Direct Bilirubin 0.00 # Indirect Bilirubin 0.1 Aspartate Amino Transf (AST/SGOT) 33 Alanine Aminotransferase (ALT/SGPT) 49 Alkaline Phosphatase 383 H Creatine Kinase < 20 L Creatine Kinase Index Creatinine Kinase MB (Mass) 0.31 Troponin I 0.170 *H Total Protein 7.9 Albumin 3.4 Globulin 4.50 H Albumin/Globulin Ratio 0.75 Serum HCG, Qualitative NEGATIVE Medications Medications Current Medications Amlodipine Besylate (Norvasc) 5 mg BID PO Last administered on 05/06/17 21:24 ; Admin Dose 5 MG; Start 05/06/17 at 09:00 Aspirin (Aspirin) 81 mg DAILY PO Last administered on 05/06/17 10:37; Admin Dose 81 MG; Start 05/06/17 at 09:00; Status Future hold Atorvastatin Calcium (Lipitor) 20 mg QHS PO Last administered on 05/06/17 21: 21; Admin Dose 20 MG; Start 05/06/17 at 21:00 Carvedilol (Coreg) 25 mg BID PO Last administered on 05/06/17 21:23; Admin Dose 25 MG; Start 05/06/17 at 09:00 Cinacalcet (Sensipar) 60 mg DAILY PO Last administered on 05/06/17 10:34; Admin Dose 60 MG; Start 05/06/17 at 09:00 Diphenhydramine HCl (Benadryl) 50 mg Q12H PRN PO ITCHING; Start 05/06/17 at 00: 00 Docusate Sodium (Colace) 100 mg BID PRN PO CONSTIPATION; Start 05/06/17 at 00: 00 Folic Acid (Folic Acid) 1 mg DAILY PO Last administered on 05/06/17 10:33; Admin Dose 1 MG; Start 05/06/17 at 09:00 Lanthanum Carbonate (Fosrenol) 500 mg TID PO Last administered on 05/06/17 21: 21; Admin Dose 500 MG; Start 05/06/17 at 09:00 Losartan Potassium (Cozaar) 50 mg BID PO Last administered on 05/06/17 21:23; Admin Dose 50 MG; Start 05/06/17 at 09:00 Pantoprazole 40 mg 40 mg DAILY@06 PO Last administered on 05/07/17 05:30; Admin Dose 40 MG; Start 05/06/17 at 06:00 Sodium Chloride (NS) 1,000 ml @ 25 mls/hr Q24H IV Last administered on 23:34; Admin Dose 25 MLS/HR; Start 05/05/17 at 23:34 Acetaminophen (Tylenol Tab) 650 mg Q6H PRN PO PAIN LEVEL 1-3 OR FEVER; Start at 00:00 Acetaminophen (Tylenol Supp) 650 mg Q6H PRN SC PAIN LEVEL 1-3 OR FEVER; Start 05/06/17 at 00:00 Acetaminophen/ Hydrocodone Bitart ([place] (5/325)) 1 tab Q6H PRN PO MODERATE PAIN LEVEL 4-6; Start 05/06/17 at 00:00 Hydromorphone HCl (Dilaudid) 0.5 mg Q4H PRN IV SEVERE PAIN LEVEL 7-10 Last administered on 05/07/17 05:31; Admin Dose 0.5 MG; Start 05/06/17 at 00:00 Bisacodyl (Dulcolax) 5 mg DAILY PRN PO CONSTIPATION; Start 05/06/17 at 00:00 Enoxaparin Sodium (Lovenox) 30 mg DAILY SC ; Start 05/06/17 at 09:00; Status Future hold Hydralazine HCl (Apresoline) 50 mg BID PO Last administered on 05/06/17 21:22 ; Admin Dose 50 MG; Start 05/06/17 at 21:00 Ondansetron HCl 4 mg 4 mg Q4H PRN IV NAUSEA AND/OR VOMITING Last administered on 05/06/17 15:37; Admin Dose 4 MG; Start 05/06/17 at 15:00 Ceftriaxone Sodium 50 ml @ 100 mls/hr Q24H IVPB Last administered on 12:34; Admin Dose 100 MLS/HR; Start 05/07/17 at 10:30 Metronidazole 100 ml @ 100 mls/hr Q8 IVPB Last administered on 05/07/17 05:30 ; Admin Dose 100 MLS/HR; Start 05/06/17 at 22:00 Sodium Chloride (NS) 1,000 ml @ 0 mls/hr Q0M PRN IV TO KEEP SBP ABOVE 90; Start 05/06/17 at 17:42 DEONNA DENT May 07, 2017 13:03
[2017-05-07] MEDS: AMLODIPINE 5 MG TAB PO SCH ×2 (13:12→21:44)
[2017-05-07] MEDS: FOLIC ACID 1 MG TAB PO SCH (13:13)
[2017-05-07] MEDS: LOSARTAN 50 MG TAB PO SCH ×2 (13:13→21:44)
[2017-05-07] MEDS: CINACALCET 30 MG TAB PO SCH (13:27)
--- NOTE | 2017-05-07 17:11 | RADRPT ---
Vent Rate: 79 bpm RR Interval: 0 msec GA Interval: 134 msec QRS Duration: 88 msec QT Interval: 382 msec QTC Interval: 438 msec P-R-T [place]: 19 - 15 - 113 degrees Normal sinus rhythm T wave abnormality, consider lateral ischemia Abnormal ECG Electronically Signed By: Rigo Lorenz [id number]
[2017-05-07] MEDS: ATORVASTATIN 20 MG TAB PO SCH (21:43)
[2017-05-07] MEDS: DIPHENHYDRAMINE 50 MG CAP PO PRN (21:52)
[2017-05-07] MEDS: SOD CHLORIDE 0.9% 1,000 ML IV SCH (23:34)
[2017-05-08] VITALS (9 sets, daily range): BP systolic 133–155; BP diastolic 72–86; PULSE 73–93; RESP 17–20
[2017-05-08] MEDS: HYDROmorphONE 1 MG/ML SYG IV PRN ×5 (01:00→20:08)
[2017-05-08] MEDS: PANTOPRAZOLE (EC) 40 MG TAB PO SCH (06:54)
[2017-05-08] MEDS: metroNIDAZOLE 500 MG/NS (PMX) 100 ML IVPB SCH ×3 (06:54→21:52)
[2017-05-08] MEDS: SEVELAMER CARBONATE 0.8 GM PKT PO SCH ×3 (08:00→18:05)
[2017-05-08] MEDS: ENOXAPARIN 30 MG/0.3 ML SYG SC SCH (09:00)
[2017-05-08] MEDS: LANTHANUM 500 MG CHEW PO SCH ×3 (10:26→20:11)
[2017-05-08] MEDS: CINACALCET 30 MG TAB PO SCH (10:26)
[2017-05-08] MEDS: FOLIC ACID 1 MG TAB PO SCH (10:27)
[2017-05-08] MEDS: AMLODIPINE 5 MG TAB PO SCH ×2 (10:27→20:12)
[2017-05-08] MEDS: ASPIRIN 81 MG TAB PO SCH (10:28)
[2017-05-08] MEDS: LOSARTAN 50 MG TAB PO SCH ×2 (10:34→20:12)
[2017-05-08] MEDS: CEFTRIAXONE 1 GM/50 ML (PMX) 50 ML IVPB SCH (10:38)
--- NOTE | 2017-05-08 12:11 | PN ---
Date/Time of Note Date/Time of Note DATE: 05/08/17 TIME: 12:08 Assessment/Plan VTE Prophylaxis VTE Prophylaxis Intervention: ambulation Lines/Catheters IV Catheter Type (from [facility]): Peripheral IV Urinary Cath still in place: No Assessment/Plan Chief Complaint/Hosp Course 1. Acalculous cholecystitis 2. Hyperkalemia 3. ESRD on HD M/W/F 4. Hx of drug abuse 5. HTN, controlled 6. Anemia 7. Elevated troponin Problems: Assessment/Plan 1. Continue HD 2. Continue current regime 3. blood transfusion,, consented Subjective 24 Hr Interval Summary Free Text/Dictation pt reported that she is unable to fall asleep Cardiovascular: chest pain, no complaints, No edema, No lightheadedness, No orthopenea, No other, No palpitations, No paroxysmal nocturnal dyspnea Musculoskeletal: no complaints Exam/Review of Systems Vital Signs Vitals Vital Signs Date Time Temp Pulse Resp B/P Pulse Ox O2 Delivery O2 Flow Rate FiO2 05/08/17 09:59 98.1 82 17 143/72 94 05/08/17 04:00 Room Air Intake and Output 05/07/17 05/07/17 05/08/17 15:00 23:00 07:00 Intake Total 650 ml 150 ml 100 ml Output Total 3600 ml Balance -2950 ml 150 ml 100 ml Exam Constitutional: alert, oriented Neck: supple Respiratory: clear to auscultation Neurological: other (Left AV shunt positive for gurgling and bruit) Results Result Diagram: 05/07/17 0710 05/07/17 0710 Medications Medications Current Medications Amlodipine Besylate (Norvasc) 5 mg BID PO Last administered on 05/08/17 10:27 ; Admin Dose 5 MG; Start 05/06/17 at 09:00 Aspirin (Aspirin) 81 mg DAILY PO Last administered on 05/08/17 10:28; Admin Dose 81 MG; Start 05/06/17 at 09:00; Status Future hold Atorvastatin Calcium (Lipitor) 20 mg QHS PO Last administered on 05/07/17 21: 43; Admin Dose 20 MG; Start 05/06/17 at 21:00 Carvedilol (Coreg) 25 mg BID PO Last administered on 05/08/17 10:27; Admin Dose 25 MG; Start 05/06/17 at 09:00 Cinacalcet (Sensipar) 60 mg DAILY PO Last administered on 05/08/17 10:26; Admin Dose 60 MG; Start 05/06/17 at 09:00 Diphenhydramine HCl (Benadryl) 50 mg Q12H PRN PO ITCHING Last administered on 21:52; Admin Dose 50 MG; Start 05/06/17 at 00:00 Docusate Sodium (Colace) 100 mg BID PRN PO CONSTIPATION; Start 05/06/17 at 00: 00 Folic Acid (Folic Acid) 1 mg DAILY PO Last administered on 05/08/17 10:27; Admin Dose 1 MG; Start 05/06/17 at 09:00 Lanthanum Carbonate (Fosrenol) 500 mg TID PO Last administered on 05/08/17 10: 26; Admin Dose 500 MG; Start 05/06/17 at 09:00 Losartan Potassium (Cozaar) 50 mg BID PO Last administered on 05/08/17 10:34; Admin Dose 50 MG; Start 05/06/17 at 09:00 Pantoprazole 40 mg 40 mg DAILY@06 PO Last administered on 05/08/17 06:54; Admin Dose 40 MG; Start 05/06/17 at 06:00 Sodium Chloride (NS) 1,000 ml @ 25 mls/hr Q24H IV Last administered on 23:34; Admin Dose 25 MLS/HR; Start 05/05/17 at 23:34 Acetaminophen (Tylenol Tab) 650 mg Q6H PRN PO PAIN LEVEL 1-3 OR FEVER; Start at 00:00 Acetaminophen (Tylenol Supp) 650 mg Q6H PRN [place] PAIN LEVEL 1-3 OR FEVER; Start 05/06/17 at 00:00 Acetaminophen/ Hydrocodone Bitart ([place] (5/325)) 1 tab Q6H PRN PO MODERATE PAIN LEVEL 4-6; Start 05/06/17 at 00:00 Hydromorphone HCl (Dilaudid) 0.5 mg Q4H PRN IV SEVERE PAIN LEVEL 7-10 Last administered on 05/08/17 10:39; Admin Dose 0.5 MG; Start 05/06/17 at 00:00 Bisacodyl (Dulcolax) 5 mg DAILY PRN PO CONSTIPATION; Start 05/06/17 at 00:00 Enoxaparin Sodium (Lovenox) 30 mg DAILY SC ; Start 05/06/17 at 09:00; Status Future hold Hydralazine HCl (Apresoline) 50 mg BID PO Last administered on 05/08/17 10:29 ; Admin Dose 50 MG; Start 05/06/17 at 21:00 Ondansetron HCl 4 mg 4 mg Q4H PRN IV NAUSEA AND/OR VOMITING Last administered on 05/06/17 15:37; Admin Dose 4 MG; Start 05/06/17 at 15:00 Ceftriaxone Sodium 50 ml @ 100 mls/hr Q24H IVPB Last administered on 10:38; Admin Dose 100 MLS/HR; Start 05/07/17 at 10:30 Metronidazole 100 ml @ 100 mls/hr Q8 IVPB Last administered on 05/08/17 06:54 ; Admin Dose 100 MLS/HR; Start 05/06/17 at 22:00 Sodium Chloride (NS) 1,000 ml @ 0 mls/hr Q0M PRN IV TO KEEP SBP ABOVE 90; Start 05/06/17 at 17:42 TONY SANDOVAL May 08, 2017 12:11
[2017-05-08 12:38] LABS: HEPATITIS B CORE ANTIBODY NEGATIVE (NEGATIVE)
--- NOTE | 2017-05-08 13:17 | CONS ---
Date/Time of Note Date/Time of Note DATE: 05/08/17 TIME: 13:15 Assessment/Plan Assessment/Plan Additional Assessment/Plan 1. Positive troponin in the setting of renal failure with a history of nonischemic cardiomyopathy by catheterization December 2015, thus likely a marker of chronic cardiomyopathy more than suggestive of acute coronary syndrome.-minimal uptrend/NO cp - TECH NOT AVAILABLE, re- scheduled for Wednesday 2. Cardiomyopathy with decreased left ventricular ejection fraction- ICD right side in place, check in the office 3. Hypertension - on high side, Rx with HD 4. Dyslipidemia. 5. Abdominal pain, possible acute cholecystitis. 6. Endstage renal dialysis on hemodialysis- Rx per Dr. Simpson. . 7. Anemia. 8. Hyperkalemia-improved Consultation Date/Type/Reason Admit Date/Time May 05, 2017 at 18:31 Initial Consult Date 05/06/17 Type of Consultation: cardiology Referring Provider: REMI SIMPSON MD 24 HR Interval Summary Free Text/Dictation TECH NOT AVAILABLE, re-scheduled [place] for Wednesday NO CP now ROS: No fever, no chills, no nausea, no vomiting, no diarrhea/constipation No recent weight changes No chest pain, no PND, no orthopnea No dizziness, blurred vision No thirst, no heat or cold intolerance Exam/Review of Systems Vital Signs Vitals Vital Signs Date Time Temp Pulse Resp B/P Pulse Ox O2 Delivery O2 Flow Rate FiO2 05/08/17 12:11 98.1 79 17 155/76 93 05/08/17 04:00 Room Air Intake and Output 05/07/17 05/07/17 05/08/17 15:00 23:00 07:00 Intake Total 650 ml 150 ml 100 ml Output Total 3600 ml Balance -2950 ml 150 ml 100 ml Exam General: WN/WD/NAD, AOx 3 HEENT: Unicetric/atraumatic/EOMI (follow commands) NECK: JVD elevated, no thyromegaly Lymph: no lymphadenopathy HEART: regular with no S3, II/ systolic murmur at apex, PMI Left, ICD right side LUNGS: Coarse sounds ABD: soft, NT, ND, +BS : Intact Neuro: non focal SKIN: chronic changes EXT: trace edema Results Result Diagram: 05/07/17 0710 05/07/17 0710 Results 24 hrs Laboratory Tests Test 05/08/17 05:50 Hepatitis B Surface Antigen NEGATIVE Hepatitis B Core Total Antibody NEGATIVE Hepatitis C Antibody NEGATIVE Medications Medications Current Medications Amlodipine Besylate (Norvasc) 5 mg BID PO Last administered on 05/08/17 10:27 ; Admin Dose 5 MG; Start 05/06/17 at 09:00 Aspirin (Aspirin) 81 mg DAILY PO Last administered on 05/08/17 10:28; Admin Dose 81 MG; Start 05/06/17 at 09:00; Status Future hold Atorvastatin Calcium (Lipitor) 20 mg QHS PO Last administered on 05/07/17 21: 43; Admin Dose 20 MG; Start 05/06/17 at 21:00 Carvedilol (Coreg) 25 mg BID PO Last administered on 05/08/17 10:27; Admin Dose 25 MG; Start 05/06/17 at 09:00 Cinacalcet (Sensipar) 60 mg DAILY PO Last administered on 05/08/17 10:26; Admin Dose 60 MG; Start 05/06/17 at 09:00 Diphenhydramine HCl (Benadryl) 50 mg Q12H PRN PO ITCHING Last administered on 21:52; Admin Dose 50 MG; Start 05/06/17 at 00:00 Docusate Sodium (Colace) 100 mg BID PRN PO CONSTIPATION; Start 05/06/17 at 00: 00 Folic Acid (Folic Acid) 1 mg DAILY PO Last administered on 05/08/17 10:27; Admin Dose 1 MG; Start 05/06/17 at 09:00 Lanthanum Carbonate (Fosrenol) 500 mg TID PO Last administered on 05/08/17 10: 26; Admin Dose 500 MG; Start 05/06/17 at 09:00 Losartan Potassium (Cozaar) 50 mg BID PO Last administered on 05/08/17 10:34; Admin Dose 50 MG; Start 05/06/17 at 09:00 Pantoprazole 40 mg 40 mg DAILY@06 PO Last administered on 05/08/17 06:54; Admin Dose 40 MG; Start 05/06/17 at 06:00 Sodium Chloride (NS) 1,000 ml @ 25 mls/hr Q24H IV Last administered on 23:34; Admin Dose 25 MLS/HR; Start 05/05/17 at 23:34 Acetaminophen (Tylenol Tab) 650 mg Q6H PRN PO PAIN LEVEL 1-3 OR FEVER; Start at 00:00 Acetaminophen (Tylenol Supp) 650 mg Q6H PRN [place] PAIN LEVEL 1-3 OR FEVER; Start 05/06/17 at 00:00 Acetaminophen/ Hydrocodone Bitart ([place] (5/325)) 1 tab Q6H PRN PO MODERATE PAIN LEVEL 4-6; Start 05/06/17 at 00:00 Hydromorphone HCl (Dilaudid) 0.5 mg Q4H PRN IV SEVERE PAIN LEVEL 7-10 Last administered on 05/08/17 10:39; Admin Dose 0.5 MG; Start 05/06/17 at 00:00 Bisacodyl (Dulcolax) 5 mg DAILY PRN PO CONSTIPATION; Start 05/06/17 at 00:00 Enoxaparin Sodium (Lovenox) 30 mg DAILY SC ; Start 05/06/17 at 09:00; Status Future hold Hydralazine HCl (Apresoline) 50 mg BID PO Last administered on 05/08/17 10:29 ; Admin Dose 50 MG; Start 05/06/17 at 21:00 Ondansetron HCl 4 mg 4 mg Q4H PRN IV NAUSEA AND/OR VOMITING Last administered on 05/06/17 15:37; Admin Dose 4 MG; Start 05/06/17 at 15:00 Ceftriaxone Sodium 50 ml @ 100 mls/hr Q24H IVPB Last administered on 10:38; Admin Dose 100 MLS/HR; Start 05/07/17 at 10:30 Metronidazole 100 ml @ 100 mls/hr Q8 IVPB Last administered on 05/08/17 06:54 ; Admin Dose 100 MLS/HR; Start 05/06/17 at 22:00 Sodium Chloride (NS) 1,000 ml @ 0 mls/hr Q0M PRN IV TO KEEP SBP ABOVE 90; Start 05/06/17 at 17:42 Diphenhydramine HCl (Benadryl) 25 mg QHS PRN IV INSOMNIA; Start 05/08/17 at 12: 30 KEITH THOMAS MD May 08, 2017 13:17
[2017-05-08] MEDS: ATORVASTATIN 20 MG TAB PO SCH (20:11)
[2017-05-08] MEDS: DIPHENHYDRAMINE 50 MG INJ IV PRN (21:56)
--- NOTE | 2017-05-08 23:24 | PN ---
Date/Time of Note Date/Time of Note DATE: 05/08/17 TIME: 23:15 Assessment/Plan Lines/Catheters IV Catheter Type (from Nrs): Peripheral IV Cerda in Place (from Nrs): No Assessment/Plan Chief Complaint/Hosp Course 1.Cholecystitis: poss acalculous but patient with stated history of gallstones; continues to have pain; min elevated alk phos, ast normalized; patient would like to proceed with surgery; surgery pending- stress testing - poss surgical intervention when medically cleared -pain management 2. ESRD: -continue medical management 3. Elevated troponin: No acute cp; SR; poss 2/2 #2; stress test -per cardiology 4. Macrocytic anemia: No acute bleed -monitor and transfuse as needed 5. Vomiting: vomiting daily per patient -?gi consult Patient seen and examined in collaboration with Dr. Alex Frazier. Thank you. Problems: Subjective 24 Hr Interval Summary Abdominal pain minimally improved. Tolerating diet without nausea or vomiting today. No c/o cp or chest discomfort. No sob, congested cough, chavarria, dizziness, n/ v/d/dysuria. Pending stress test Exam/Review of Systems Vital Signs Vitals Vital Signs Date Time Temp Pulse Resp B/P Pulse Ox O2 Delivery O2 Flow Rate FiO2 05/08/17 20:29 78 05/08/17 20:00 98.7 20 146/86 96 05/08/17 04:00 Room Air Intake and Output 05/07/17 05/07/17 05/08/17 15:00 23:00 07:00 Intake Total 650 ml 150 ml 100 ml Output Total 3600 ml Balance -2950 ml 150 ml 100 ml Exam Free Text/Dictation Constitutional: alert, oriented Psych: anxiety Head: atraumatic, normocephalic Eyes: nl lids, nl sclera ENMT: No mucosa pink and moist (dry) Neck: non-tender, supple Respiratory: normal air movement, No congested cough Cardiovascular: regular rate and rhythm, SR No edema Gastrointestinal: bowel sounds, soft, mod tender but improved, No distended Genitourinary - Female: nl external genitalia Musculoskeletal: nl gait and stance, No muscle weakness Extremities: normal pulses, No edema Neurological: nl mental status, nl speech, nl strength Skin: No rash or lesions Lymph: No nl lymph nodes Results Result Diagram: 05/07/17 0710 05/07/17 0710 [place] ANDRADE NP May 08, 2017 23:24
[2017-05-09] VITALS (13 sets, daily range): BP systolic 127–171; BP diastolic 63–93; PULSE 76–108; RESP 17–28
[2017-05-09] MEDS: HYDROmorphONE 1 MG/ML SYG IV PRN ×5 (00:33→23:50)
[2017-05-09] MEDS: SOD CHLORIDE 0.9% 1,000 ML IV SCH ×2 (02:00→20:51)
[2017-05-09] MEDS: metroNIDAZOLE 500 MG/NS (PMX) 100 ML IVPB SCH ×3 (05:14→20:45)
[2017-05-09] MEDS: PANTOPRAZOLE (EC) 40 MG TAB PO SCH (05:14)
[2017-05-09] MEDS ORDERED: VITAMIN A & D 5 GM OINT PACKET TOP ONE (05:21)
[2017-05-09] MEDS: SEVELAMER CARBONATE 0.8 GM PKT PO SCH ×3 (08:45→17:25)
[2017-05-09] MEDS: FOLIC ACID 1 MG TAB PO SCH (08:46)
[2017-05-09] MEDS: LOSARTAN 50 MG TAB PO SCH ×2 (08:46→20:37)
[2017-05-09] MEDS: AMLODIPINE 5 MG TAB PO SCH ×2 (08:46→20:38)
[2017-05-09] MEDS: LANTHANUM 500 MG CHEW PO SCH ×3 (08:46→20:38)
[2017-05-09] MEDS: CINACALCET 30 MG TAB PO SCH (08:46)
[2017-05-09] MEDS: ASPIRIN 81 MG TAB PO SCH (08:46)
[2017-05-09] MEDS: ENOXAPARIN 30 MG/0.3 ML SYG SC SCH (08:47)
[2017-05-09 08:52] LABS: BASOPHILS % 0.5 % (0.0-2.0); EOSINOPHILS # 0.1 10^3/ul (0.0-0.5); EOSINOPHILS % 1.1 % (0.0-7.0); HEMATOCRIT 25.8 % (37.0-47.0); HEMOGLOBIN 8.1 g/dl (12.0-16.0); LYMPHOCYTES % 13.5 % (15.0-51.0); MEAN CORPUSCULAR HEMOGLOBIN 31.8 pg (29.0-33.0); MEAN CORPUSCULAR HGB CONC 31.4 g/dl (32.0-37.0); MEAN CORPUSCULAR VOLUME 101.2 fl (82.0-101.0); MEAN PLATELET VOLUME 11.2 fl (7.4-10.4); MONOCYTE # 0.9 10^3/ul (0.3-0.9); MONOCYTES % 11.3 % (0.0-11.0); NEUTROPHILS % 72.5 % (39.0-77.0); NUCLEATED RED BLOOD CELLS # 0.1 10^3/ul (0.0-0.0); NUCLEATED RED BLOOD CELLS% 1.2 /100WBC (0.0-0.0); PLATELET COUNT 425 10^3/UL (140-415); RED BLOOD COUNT 2.55 10^6/ul (4.20-5.40); RED CELL DISTRIBUTION WIDTH 18.8 % (11.5-14.5); WHITE BLOOD COUNT 7.6 10^3/ul (4.8-10.8)
[2017-05-09 09:14] LABS: TOTAL PROTEIN 6.9 g/dl (6.1-8.1)
[2017-05-09 09:27] LABS: CREATININE 8.73 mg/dl (0.44-1.00); POTASSIUM 4.5 mmol/L (3.5-5.1)
--- NOTE | 2017-05-09 10:23 | CONS ---
Date/Time of Note Date/Time of Note DATE: 05/09/17 TIME: 10:22 Assessment/Plan Assessment/Plan Additional Assessment/Plan 1. Positive troponin in the setting of renal failure with a history of nonischemic cardiomyopathy by catheterization December 2015, thus likely a marker of chronic cardiomyopathy more than suggestive of acute coronary syndrome.-minimal uptrend/NO cp - TECH NOT AVAILABLE, re-scheduled for Wednesday - WILL MAKE PT NPO 2. Cardiomyopathy with decreased left ventricular ejection fraction- ICD right side in place, check in the office 3. Hypertension - on high side, Rx with HD 4. Dyslipidemia. 5. Abdominal pain, possible acute cholecystitis. 6. Endstage renal dialysis on hemodialysis- Rx per Dr. Simpson. . 7. Anemia- s/p blood tx yesterday 8. Hyperkalemia-improved Consultation Date/Type/Reason Admit Date/Time May 05, 2017 at 18:31 Initial Consult Date 05/06/17 Type of Consultation: cardiology Referring Provider: REMI SIMPSON MD 24 HR Interval Summary Free Text/Dictation No acute change - tolerated blood Tx - stress test tomorrow ROS: No fever, no chills, no nausea, no vomiting, no diarrhea/constipation No recent weight changes No chest pain, no PND, no orthopnea No dizziness, blurred vision No thirst, no heat or cold intolerance Exam/Review of Systems Vital Signs Vitals Vital Signs Date Time Temp Pulse Resp B/P Pulse Ox O2 Delivery O2 Flow Rate FiO2 05/09/17 08:28 98.0 72 18 144/90 98 05/09/17 04:00 Room Air Intake and Output 05/08/17 05/08/17 05/09/17 15:00 23:00 07:00 Intake Total 340 ml 915 ml Balance 340 ml 915 ml Exam General: WN/WD/NAD, AOx 3 HEENT: Unicetric/atraumatic/EOMI (follows commands) NECK: JVD elevated, no thyromegaly Lymph: no lymphadenopathy HEART: regular with no S3, II/ systolic murmur at apex LUNGS: Coarse sounds ABD: soft, NT, ND, +BS : Intact Neuro: non focal SKIN: chronic changes EXT: trace edema Results Result Diagram: 05/09/1717 05/09/17 0717 Results 24 hrs Laboratory Tests Test 05/09/17 07:17 05/09/17 08:27 White Blood Count 7.6 Red Blood Count 2.55 L Hemoglobin 8.1 L Hematocrit 25.8 L Mean Corpuscular Volume 101.2 H Mean Corpuscular Hemoglobin 31.8 Mean Corpuscular Hemoglobin Concent 31.4 L Red Cell Distribution Width 18.8 H Platelet Count 425 H Mean Platelet Volume 11.2 H Neutrophils % 72.5 Lymphocytes % 13.5 L Monocytes % 11.3 H Eosinophils % 1.1 Basophils % 0.5 Nucleated Red Blood Cells % 1.2 H Neutrophils # (Manual) 5.5 Lymphocytes # 1.0 Monocytes # 0.9 Eosinophils # 0.1 Basophils # 0.0 Nucleated Red Blood Cells # 0.1 H Sodium Level 140 Potassium Level 4.5 Chloride Level 99 Carbon Dioxide Level 23 Anion Gap 23 H Blood Urea Nitrogen 53 H Creatinine 8.73 H Glucose Level 87 Calcium Level 9.0 Total Bilirubin 0.0 L Direct Bilirubin 0.00 Indirect Bilirubin 0.0 Aspartate Amino Transf (AST/SGOT) 27 Alanine Aminotransferase (ALT/SGPT) 41 Alkaline Phosphatase 338 H Total Protein 6.9 Albumin 3.0 L Lab Scanned Report BLOOD TRANSFUSION Medications Medications Current Medications Amlodipine Besylate (Norvasc) 5 mg BID PO Last administered on 05/09/17 08:46 ; Admin Dose 5 MG; Start 05/06/17 at 09:00 Aspirin (Aspirin) 81 mg DAILY PO Last administered on 05/09/17 08:46; Admin Dose 81 MG; Start 05/06/17 at 09:00; Status Future hold Atorvastatin Calcium (Lipitor) 20 mg QHS PO Last administered on 05/08/17 20: 11; Admin Dose 20 MG; Start 05/06/17 at 21:00 Carvedilol (Coreg) 25 mg BID PO Last administered on 05/09/17 08:47; Admin Dose 25 MG; Start 05/06/17 at 09:00 Cinacalcet (Sensipar) 60 mg DAILY PO Last administered on 05/09/17 08:46; Admin Dose 60 MG; Start 05/06/17 at 09:00 Diphenhydramine HCl (Benadryl) 50 mg Q12H PRN PO ITCHING Last administered on 21:52; Admin Dose 50 MG; Start 05/06/17 at 00:00 Docusate Sodium (Colace) 100 mg BID PRN PO CONSTIPATION; Start 05/06/17 at 00: 00 Folic Acid (Folic Acid) 1 mg DAILY PO Last administered on 05/09/17 08:46; Admin Dose 1 MG; Start 05/06/17 at 09:00 Lanthanum Carbonate (Fosrenol) 500 mg TID PO Last administered on 05/09/17 08: 46; Admin Dose 500 MG; Start 05/06/17 at 09:00 Losartan Potassium (Cozaar) 50 mg BID PO Last administered on 05/09/17 08:46; Admin Dose 50 MG; Start 05/06/17 at 09:00 Pantoprazole 40 mg 40 mg DAILY@06 PO Last administered on 05/09/17 05:14; Admin Dose 40 MG; Start 05/06/17 at 06:00 Sodium Chloride (NS) 1,000 ml @ 25 mls/hr Q24H IV Last administered on 02:00; Admin Dose 25 MLS/HR; Start 05/05/17 at 23:34 Acetaminophen (Tylenol Tab) 650 mg Q6H PRN PO PAIN LEVEL 1-3 OR FEVER; Start at 00:00 Acetaminophen (Tylenol Supp) 650 mg Q6H PRN [place] PAIN LEVEL 1-3 OR FEVER; Start 05/06/17 at 00:00 Acetaminophen/ Hydrocodone Bitart ([place] (5/325)) 1 tab Q6H PRN PO MODERATE PAIN LEVEL 4-6; Start 05/06/17 at 00:00 Hydromorphone HCl (Dilaudid) 0.5 mg Q4H PRN IV SEVERE PAIN LEVEL 7-10 Last administered on 05/09/17 05:14; Admin Dose 0.5 MG; Start 05/06/17 at 00:00 Bisacodyl (Dulcolax) 5 mg DAILY PRN PO CONSTIPATION; Start 05/06/17 at 00:00 Enoxaparin Sodium (Lovenox) 30 mg DAILY SC ; Start 05/06/17 at 09:00; Status Future hold Hydralazine HCl (Apresoline) 50 mg BID PO Last administered on 05/09/17 08:47 ; Admin Dose 50 MG; Start 05/06/17 at 21:00 Ondansetron HCl 4 mg 4 mg Q4H PRN IV NAUSEA AND/OR VOMITING Last administered on 05/06/17 15:37; Admin Dose 4 MG; Start 05/06/17 at 15:00 Ceftriaxone Sodium 50 ml @ 100 mls/hr Q24H IVPB Last administered on 10:38; Admin Dose 100 MLS/HR; Start 05/07/17 at 10:30 Metronidazole 100 ml @ 100 mls/hr Q8 IVPB Last administered on 05/09/17 05:14 ; Admin Dose 100 MLS/HR; Start 05/06/17 at 22:00 Sodium Chloride (NS) 1,000 ml @ 0 mls/hr Q0M PRN IV TO KEEP SBP ABOVE 90; Start 05/06/17 at 17:42 Diphenhydramine HCl (Benadryl) 25 mg QHS PRN IV INSOMNIA Last administered on 21:56; Admin Dose 25 MG; Start 05/08/17 at 12:30 KEITH THOMAS MD May 09, 2017 10:23
[2017-05-09] MEDS: CEFTRIAXONE 1 GM/50 ML (PMX) 50 ML IVPB SCH (11:07)
[2017-05-09] MEDS: ONDANSETRON 4 MG INJ IV PRN (12:21)
--- NOTE | 2017-05-09 15:47 | PN ---
Date/Time of Note Date/Time of Note DATE: 05/09/17 TIME: 15:41 Assessment/Plan Lines/Catheters [facility] Peripheral IV Cerda in Place (from Nrs): No Assessment/Plan Chief Complaint/Hosp Course 1.Cholecystitis: poss acalculous but patient with stated history of gallstones; continues to have pain; improving alk phos; patient would like to proceed with surgery; surgery pending- stress testing - poss surgical intervention when medically cleared -pain management 2. ESRD: -continue medical management 3. Elevated troponin: No acute cp; SR; poss 2/2 #2; stress test pending -per cardiology 4. Macrocytic anemia: No acute bleed -monitor and transfuse as needed 5. Vomiting: vomiting daily per patient -?gi consult Patient seen and examined in collaboration with Dr. Alex Frazier. Thank you. Problems: Subjective 24 Hr Interval Summary Feels ok. Continues to have abdominal pain of same character. Vomiting again today after po medications. Tolerating min solid foods. No fevers, chills, d/ dysuria, cp, palpitations, change in tele rhythm. Pending stress test tomorrow. Exam/Review of Systems Vital Signs Vitals Vital Signs Date Time Temp Pulse Resp B/P Pulse Ox O2 Delivery O2 Flow Rate FiO2 05/09/17 12:50 98.0 76 18 127/63 97 05/09/17 04:00 Room Air Intake and Output 05/08/17 05/08/17 05/09/17 15:00 23:00 07:00 Intake Total 340 ml 915 ml Balance 340 ml 915 ml Exam Free Text/Dictation Constitutional: alert, oriented Psych: anxiety Head: atraumatic, normocephalic Eyes: nl lids, nl sclera ENMT: No mucosa pink and moist (dry) Neck: non-tender, supple Respiratory: normal air movement, No congested cough Cardiovascular: regular rate and rhythm, SR No edema Gastrointestinal: bowel sounds, soft, tender, No distended Genitourinary - Female: nl external genitalia Musculoskeletal: nl gait and stance, No muscle weakness Extremities: normal pulses, No edema Neurological: nl mental status, nl speech, nl strength Skin: No rash or lesions Lymph: No nl lymph nodes Results Result Diagram: 05/09/1771605/09/17716 [place] ANDRADE [employer] May 09, 2017 15:47
--- NOTE | 2017-05-09 16:16 | PN ---
Date/Time of Note Date/Time of Note DATE: 05/09/17 TIME: 16:15 Assessment/Plan VTE Prophylaxis VTE Prophylaxis Intervention: other Lines/Catheters IV Catheter Type (from Nrsg): Peripheral IV Urinary Cath still in place: No Assessment/Plan Chief Complaint/Hosp Course 1. Acalculous cholecystitis 2. CAD 3. ESRD on HD M/W/F 4. Hx of drug abuse 5. HTN, controlled 6. Anemia 7. Elevated troponin PLAN HD AM Problems: Subjective 24 Hr Interval Summary Cardiovascular: no complaints Gastrointestinal: pain (+) Exam/Review of Systems Vital Signs Vitals Vital Signs Date Time Temp Pulse Resp B/P Pulse Ox O2 Delivery O2 Flow Rate FiO2 05/09/17 16:00 78 05/09/17 12:50 98.0 18 127/63 97 05/09/17 04:00 Room Air Intake and Output 05/08/17 05/08/17 05/09/17 15:00 23:00 07:00 Intake Total 340 ml 915 ml Balance 340 ml 915 ml Exam Neck: supple Respiratory: clear to auscultation Cardiovascular: regular rate and rhythm Gastrointestinal: bowel sounds (+), soft Extremities: No edema Results Result Diagram: 05/09/1771605/09/17 0717 Results 24 hrs Laboratory Tests Test 05/09/17 07:17 05/09/17 08:27 White Blood Count 7.6 Red Blood Count 2.55 L Hemoglobin 8.1 L Hematocrit 25.8 L Mean Corpuscular Volume 101.2 H Mean Corpuscular Hemoglobin 31.8 Mean Corpuscular Hemoglobin Concent 31.4 L Red Cell Distribution Width 18.8 H Platelet Count 425 H Mean Platelet Volume 11.2 H Neutrophils % 72.5 Lymphocytes % 13.5 L Monocytes % 11.3 H Eosinophils % 1.1 Basophils % 0.5 Nucleated Red Blood Cells % 1.2 H Neutrophils # (Manual) 5.5 Lymphocytes # 1.0 Monocytes # 0.9 Eosinophils # 0.1 Basophils # 0.0 Nucleated Red Blood Cells # 0.1 H Sodium Level 140 Potassium Level 4.5 Chloride Level 99 Carbon Dioxide Level 23 Anion Gap 23 H Blood Urea Nitrogen 53 H Creatinine 8.73 H Glucose Level 87 Calcium Level 9.0 Total Bilirubin 0.0 L Direct Bilirubin 0.00 Indirect Bilirubin 0.0 Aspartate Amino Transf (AST/SGOT) 27 Alanine Aminotransferase (ALT/SGPT) 41 Alkaline Phosphatase 338 H Total Protein 6.9 Albumin 3.0 L Lab Scanned Report BLOOD TRANSFUSION Medications Medications Current Medications Amlodipine Besylate (Norvasc) 5 mg BID PO Last administered on 05/09/17 08:46 ; Admin Dose 5 MG; Start 05/06/17 at 09:00 Aspirin (Aspirin) 81 mg DAILY PO Last administered on 05/09/17 08:46; Admin Dose 81 MG; Start 05/06/17 at 09:00; Status Future hold Atorvastatin Calcium (Lipitor) 20 mg QHS PO Last administered on 05/08/17 20: 11; Admin Dose 20 MG; Start 05/06/17 at 21:00 Carvedilol (Coreg) 25 mg BID PO Last administered on 05/09/17 08:47; Admin Dose 25 MG; Start 05/06/17 at 09:00 Cinacalcet (Sensipar) 60 mg DAILY PO Last administered on 05/09/17 08:46; Admin Dose 60 MG; Start 05/06/17 at 09:00 Diphenhydramine HCl (Benadryl) 50 mg Q12H PRN PO ITCHING Last administered on 21:52; Admin Dose 50 MG; Start 05/06/17 at 00:00 Docusate Sodium (Colace) 100 mg BID PRN PO CONSTIPATION; Start 05/06/17 at 00: 00 Folic Acid (Folic Acid) 1 mg DAILY PO Last administered on 05/09/17 08:46; Admin Dose 1 MG; Start 05/06/17 at 09:00 Lanthanum Carbonate (Fosrenol) 500 mg TID PO Last administered on 05/09/17 12: 21; Admin Dose 500 MG; Start 05/06/17 at 09:00 Losartan Potassium (Cozaar) 50 mg BID PO Last administered on 05/09/17 08:46; Admin Dose 50 MG; Start 05/06/17 at 09:00 Pantoprazole 40 mg 40 mg DAILY@06 PO Last administered on 05/09/17 05:14; Admin Dose 40 MG; Start 05/06/17 at 06:00 Sodium Chloride (NS) 1,000 ml @ 25 mls/hr Q24H IV Last administered on 02:00; Admin Dose 25 MLS/HR; Start 05/05/17 at 23:34 Acetaminophen (Tylenol Tab) 650 mg Q6H PRN PO PAIN LEVEL 1-3 OR FEVER; Start at 00:00 Acetaminophen (Tylenol Supp) 650 mg Q6H PRN [place] PAIN LEVEL 1-3 OR FEVER; Start 05/06/17 at 00:00 Acetaminophen/ Hydrocodone Bitart ([place] (5/325)) 1 tab Q6H PRN PO MODERATE PAIN LEVEL 4-6; Start 05/06/17 at 00:00 Bisacodyl (Dulcolax) 5 mg DAILY PRN PO CONSTIPATION; Start 05/06/17 at 00:00 Enoxaparin Sodium (Lovenox) 30 mg DAILY SC ; Start 05/06/17 at 09:00; Status Future hold Hydralazine HCl (Apresoline) 50 mg BID PO Last administered on 05/09/17 08:47 ; Admin Dose 50 MG; Start 05/06/17 at 21:00 Ondansetron HCl 4 mg 4 mg Q4H PRN IV NAUSEA AND/OR VOMITING Last administered on 05/09/17 12:21; Admin Dose 4 MG; Start 05/06/17 at 15:00 Ceftriaxone Sodium 50 ml @ 100 mls/hr Q24H IVPB Last administered on 11:07; Admin Dose 100 MLS/HR; Start 05/07/17 at 10:30 Metronidazole 100 ml @ 100 mls/hr Q8 IVPB Last administered on 05/09/17 14:00 ; Admin Dose 100 MLS/HR; Start 05/06/17 at 22:00 Sodium Chloride (NS) 1,000 ml @ 0 mls/hr Q0M PRN IV TO KEEP SBP ABOVE 90; Start 05/06/17 at 17:42 Diphenhydramine HCl (Benadryl) 25 mg QHS PRN IV INSOMNIA Last administered on 21:56; Admin Dose 25 MG; Start 05/08/17 at 12:30 Hydromorphone HCl (Dilaudid) 1 mg Q4H PRN IV SEVERE PAIN LEVEL 7-10; Start at 16:00 REMI SIMPSON MD May 09, 2017 16:16
[2017-05-09] MEDS: DIPHENHYDRAMINE 50 MG INJ IV PRN (20:36)
[2017-05-09] MEDS: ATORVASTATIN 20 MG TAB PO SCH (20:38)
[2017-05-09] MEDS: HEPARIN 5,000 UNIT/0.5 ML VIAL SC SCH (20:40)
[2017-05-10] VITALS (17 sets, daily range): BP systolic 119–164; BP diastolic 62–80; PULSE 76–100; RESP 18–20
[2017-05-10] MEDS: HYDROmorphONE 1 MG/ML SYG IV PRN ×6 (03:56→22:52)
[2017-05-10] MEDS: PANTOPRAZOLE (EC) 40 MG TAB PO SCH (06:10)
[2017-05-10] MEDS: metroNIDAZOLE 500 MG/NS (PMX) 100 ML IVPB SCH ×3 (06:11→22:52)
[2017-05-10 07:55] LABS: ALBUMIN 3.2 g/dl (3.3-4.9); ALBUMIN/GLOBULIN RATIO 0.76; CALCIUM 8.9 mg/dl (8.4-10.2); CREATININE 11.02 mg/dl (0.44-1.00); POTASSIUM 4.6 mmol/L (3.5-5.1); TOTAL PROTEIN 7.4 g/dl (6.1-8.1)
[2017-05-10] MEDS: ASPIRIN 81 MG TAB PO SCH (08:32)
[2017-05-10] MEDS: AMLODIPINE 5 MG TAB PO SCH ×2 (08:32→20:29)
[2017-05-10] MEDS: LOSARTAN 50 MG TAB PO SCH ×2 (08:33→20:31)
[2017-05-10] MEDS: FOLIC ACID 1 MG TAB PO SCH (08:33)
[2017-05-10] MEDS: LANTHANUM 500 MG CHEW PO SCH ×3 (08:34→20:29)
[2017-05-10] MEDS: SEVELAMER CARBONATE 0.8 GM PKT PO SCH ×3 (08:34→17:14)
[2017-05-10] MEDS: CINACALCET 30 MG TAB PO SCH (08:35)
[2017-05-10] MEDS: HEPARIN 5,000 UNIT/0.5 ML VIAL SC SCH ×2 (08:40→20:32)
[2017-05-10] MEDS: DIPHENHYDRAMINE 50 MG INJ IV PRN ×2 (09:30→21:00)
--- NOTE | 2017-05-10 11:21 | PN ---
Date/Time of Note Date/Time of Note DATE: 05/10/17 TIME: 11:17 Assessment/Plan VTE Prophylaxis VTE Prophylaxis Intervention: LMWH Lines/Catheters IV Catheter Type (from Nrs): Peripheral IV Urinary Cath still in place: No Assessment/Plan Chief Complaint/Hosp Course Gen: Awake,alert Neck:supple Lungs:clear to auscultate CVS: Regular rate and rhthym Abdomen: +TTP RUQ Ext :no edema +LUE fistula +bruit+ thrill A/P 47 y/o 1. Acalculous cholecystitis 2. Hyperkalemia 3 ESRD on HD M/W/F 4 Elevated Troponin? ACS however in ESRD +elevated trop 5 HTN 6 Cardiomyopathy 7 Drug abuse 8 Hyperphos Plan - NPO, iv abx with Rocephin/flagyl - Surgery consult following; possible surgery today pending cardiac clearence - HD today - Records from [facility] as pt had recent cath which was negatibve, in that case pt will not need cath - c/w ASA/ B shon/ ARB/ Amlodipine - GI/DVT prophylaxsis Problems: Subjective 24 Hr Interval Summary Free Text/Dictation still having abdominal pain Having HD today Exam/Review of Systems Vital Signs Vitals Vital Signs Date Time Temp Pulse Resp B/P Pulse Ox O2 Delivery O2 Flow Rate FiO2 05/10/17 10:30 77 05/10/17 10:30 18 05/10/17 08:00 99.0 145/67 94 05/09/17 04:00 Room Air Intake and Output 05/09/17 05/09/17 05/10/17 15:00 23:00 07:00 Intake Total 910 ml 120 ml Balance 910 ml 120 ml Results Result Diagram: 05/09/17 0717 05/10/17 0654 Results 24 hrs Laboratory Tests Test 05/10/17 06:54 Sodium Level 139 Potassium Level 4.6 Chloride Level 97 Carbon Dioxide Level 21 Anion Gap 26 H Blood Urea Nitrogen 67 H Creatinine 11.02 #H Glucose Level 82 Calcium Level 8.9 Total Bilirubin 0.0 L Direct Bilirubin 0.00 Indirect Bilirubin 0.0 Aspartate Amino Transf (AST/SGOT) 26 Alanine Aminotransferase (ALT/SGPT) 37 Alkaline Phosphatase 318 H Total Protein 7.4 Albumin 3.2 L Globulin 4.20 H Albumin/Globulin Ratio 0.76 Medications Medications Current Medications Amlodipine Besylate (Norvasc) 5 mg BID PO Last administered on 05/10/17 08:32 ; Admin Dose 5 MG; Start 05/06/17 at 09:00 Aspirin (Aspirin) 81 mg DAILY PO Last administered on 05/10/17 08:32; Admin Dose 81 MG; Start 05/06/17 at 09:00; Status Future hold Atorvastatin Calcium (Lipitor) 20 mg QHS PO Last administered on 05/09/17 20: 38; Admin Dose 20 MG; Start 05/06/17 at 21:00 Carvedilol (Coreg) 25 mg BID PO Last administered on 05/10/17 08:33; Admin Dose 25 MG; Start 05/06/17 at 09:00 Cinacalcet (Sensipar) 60 mg DAILY PO Last administered on 05/10/17 08:35; Admin Dose 60 MG; Start 05/06/17 at 09:00 Diphenhydramine HCl (Benadryl) 50 mg Q12H PRN PO ITCHING Last administered on 21:52; Admin Dose 50 MG; Start 05/06/17 at 00:00 Docusate Sodium (Colace) 100 mg BID PRN PO CONSTIPATION; Start 05/06/17 at 00: 00 Folic Acid (Folic Acid) 1 mg DAILY PO Last administered on 05/10/17 08:33; Admin Dose 1 MG; Start 05/06/17 at 09:00 Lanthanum Carbonate (Fosrenol) 500 mg TID PO Last administered on 05/10/17 08: 34; Admin Dose 500 MG; Start 05/06/17 at 09:00 Losartan Potassium (Cozaar) 50 mg BID PO Last administered on 05/10/17 08:33; Admin Dose 50 MG; Start 05/06/17 at 09:00 Pantoprazole 40 mg 40 mg DAILY@06 PO Last administered on 05/10/17 06:10; Admin Dose 40 MG; Start 05/06/17 at 06:00 Sodium Chloride (NS) 1,000 ml @ 25 mls/hr Q24H IV Last administered on 02:00; Admin Dose 25 MLS/HR; Start 05/05/17 at 23:34 Acetaminophen (Tylenol Tab) 650 mg Q6H PRN PO PAIN LEVEL 1-3 OR FEVER; Start at 00:00 Acetaminophen (Tylenol Supp) 650 mg Q6H PRN [place] PAIN LEVEL 1-3 OR FEVER; Start 05/06/17 at 00:00 Acetaminophen/ Hydrocodone Bitart ([place] (5/325)) 1 tab Q6H PRN PO MODERATE PAIN LEVEL 4-6; Start 05/06/17 at 00:00 Bisacodyl (Dulcolax) 5 mg DAILY PRN PO CONSTIPATION; Start 05/06/17 at 00:00 Hydralazine HCl (Apresoline) 50 mg BID PO Last administered on 05/10/17 08:32 ; Admin Dose 50 MG; Start 05/06/17 at 21:00 Ondansetron HCl 4 mg 4 mg Q4H PRN IV NAUSEA AND/OR VOMITING Last administered on 05/09/17 12:21; Admin Dose 4 MG; Start 05/06/17 at 15:00 Ceftriaxone Sodium 50 ml @ 100 mls/hr Q24H IVPB Last administered on 11:07; Admin Dose 100 MLS/HR; Start 05/07/17 at 10:30 Metronidazole 100 ml @ 100 mls/hr Q8 IVPB Last administered on 05/10/17 06:11 ; Admin Dose 100 MLS/HR; Start 05/06/17 at 22:00 Sodium Chloride (NS) 1,000 ml @ 0 mls/hr Q0M PRN IV TO KEEP SBP ABOVE 90; Start 05/06/17 at 17:42 Diphenhydramine HCl (Benadryl) 25 mg QHS PRN IV INSOMNIA Last administered on 09:30; Admin Dose 25 MG; Start 05/08/17 at 12:30 Hydromorphone HCl (Dilaudid) 1 mg Q4H PRN IV SEVERE PAIN LEVEL 7-10 Last administered on 05/10/17 08:35; Admin Dose 1 MG; Start 05/09/17 at 16:00 Heparin Sodium (Porcine) (Heparin (5000 Units/0.5 ml)) 5,000 unit BID SC Last administered on 05/10/17 08:40; Admin Dose 5,000 UNIT; Start 05/09/17 at 21:00 KHANG WATSON MD May 10, 2017 11:21
--- NOTE | 2017-05-10 12:20 | PN ---
Date/Time of Note Date/Time of Note DATE: 05/10/17 TIME: 12:16 Assessment/Plan Lines/Catheters IV Catheter Type (from [facility]): Peripheral IV Cerda in Place (from Nrs): No Assessment/Plan Chief Complaint/Hosp Course 1.Cholecystitis: poss acalculous but patient with stated history of gallstones; continues to have pain; improving alk phos; patient would like to proceed with surgery; surgery pending- stress testing - poss surgical intervention tomorrow if medically cleared -pain management 2. ESRD: HD today -continue medical management 3. Elevated troponin: No acute cp; SR; poss 2/2 #2; stress test pending today -per cardiology 4. Macrocytic anemia: No acute bleed -monitor and transfuse as needed 5. Vomiting: vomiting daily per patient -?gi consult Patient seen and examined in collaboration with Dr. Alex Frazier. Thank you. Problems: Subjective 24 Hr Interval Summary Feels ok. Continues to have abdominal pain of same characteristic. HD currently. Pending stress test today. Possible surgery tomorrow if cleared by cards. Tolerating po nutrition. +bowel function. Min temp. No fevers, chills, cp , palpitations, n/v/d/dysuria. Exam/Review of Systems Vital Signs Vitals Vital Signs Date Time Temp Pulse Resp B/P Pulse Ox O2 Delivery O2 Flow Rate FiO2 05/10/17 11:48 98.8 77 18 132/78 93 05/09/17 04:00 Room Air Intake and Output 05/09/17 05/09/17 05/10/17 15:00 23:00 07:00 Intake Total 910 ml 120 ml Balance 910 ml 120 ml Exam Free Text/Dictation Constitutional: alert, oriented Psych: anxiety Head: atraumatic, normocephalic Eyes: nl lids, nl sclera ENMT: No mucosa pink and moist (dry) Neck: non-tender, supple Respiratory: normal air movement, No congested cough Cardiovascular: regular rate and rhythm, SR No edema Gastrointestinal: bowel sounds, soft, tender, No distended Genitourinary - Female: nl external genitalia Musculoskeletal: nl gait and stance, No muscle weakness Extremities: normal pulses, No edema Neurological: nl mental status, nl speech, nl strength Skin: No rash or lesions Lymph: No nl lymph nodes Results Result Diagram: 05/09/17 0717 05/10/17 0654 [place] ANDRADE NP May 10, 2017 12:20
[2017-05-10] MEDS: CEFTRIAXONE 1 GM/50 ML (PMX) 50 ML IVPB SCH (12:34)
[2017-05-10] MEDS ORDERED: REGADENOSON 0.4 MG/5 ML SYG ONE (13:26)
--- NOTE | 2017-05-10 13:36 | CONS ---
Date/Time of Note Date/Time of Note DATE: 05/10/17 TIME: 13:33 Assessment/Plan Assessment/Plan Chief Complaint/Hosp Course IMPRESSION: 1. Positive troponin in the setting of renal failure with a history of nonischemic cardiomyopathy by catheterization December 2015, thus likely a marker of chronic cardiomyopathy more than suggestive of acute coronary syndrome.-minimal uptrend/NO cp 2. Cardiomyopathy with decreased left ventricular ejection fraction. 3. Hypertension. 4. Dyslipidemia. 5. Abdominal pain, possible acute cholecystitis. 6. Endstage renal dialysis on hemodialysis. 7. Anemia. 8. Hyperkalemia-improved Recc: -Tele -serial ecg's -Continue coreg/hydralazine/norvasc -continue statin/asa -HD for volume removal -pnding abdominal surgery -Lexiscan stress test todauy asses significance of positive troponins in a preoperative state Problems: Consultation Date/Type/Reason Admit Date/Time May 05, 2017 at 18:31 Initial Consult Date 05/06/17 Type of Consultation: cardiology Reason for Consultation pre-op/cardiomyopathy Referring Provider: REMI SIMPSON MD Exam/Review of Systems Vital Signs Vitals Vital Signs Date Time Temp Pulse Resp B/P Pulse Ox O2 Delivery O2 Flow Rate FiO2 05/10/17 12:41 85 05/10/17 11:48 98.8 18 132/78 93 05/09/17 04:00 Room Air Intake and Output 05/09/17 05/09/17 05/10/17 15:00 23:00 07:00 Intake Total 910 ml 120 ml Balance 910 ml 120 ml Exam Review of Systems: CONSTITUTIONAL: No fevers, chills. PULMONARY: No sob CARDIOVASCULAR: No chest pain/palpitations GASTROINTESTINAL: abd pain GENITOURINARY: No hematuria/dysuria. MUSCULOSKELETAL: No myagias/arthalgias. PSYCHIATRIC: The patient denies depression. NEUROLOGIC: No weakness Constitutional: alert, oriented Psych: no complaints Head: normocephalic ENMT: mucosa pink and moist Neck: jvd (8-9 cm water), supple Respiratory: diminished breath sounds (at bases/B) Cardiovascular: regular rate and rhythm Gastrointestinal: soft, tender (to palpation) Musculoskeletal: muscle tone (normal) Extremities: edema (none) Neurological: other (No focal deficits) Results Result Diagram: 05/09/17 0717 05/10/17 0654 Results 24 hrs Laboratory Tests Test 05/10/17 06:54 Sodium Level 139 Potassium Level 4.6 Chloride Level 97 Carbon Dioxide Level 21 Anion Gap 26 H Blood Urea Nitrogen 67 H Creatinine 11.02 #H Glucose Level 82 Calcium Level 8.9 Total Bilirubin 0.0 L Direct Bilirubin 0.00 Indirect Bilirubin 0.0 Aspartate Amino Transf (AST/SGOT) 26 Alanine Aminotransferase (ALT/SGPT) 37 Alkaline Phosphatase 318 H Total Protein 7.4 Albumin 3.2 L Globulin 4.20 H Albumin/Globulin Ratio 0.76 Medications Medications Current Medications Amlodipine Besylate (Norvasc) 5 mg BID PO Last administered on 05/10/17 08:32 ; Admin Dose 5 MG; Start 05/06/17 at 09:00 Aspirin (Aspirin) 81 mg DAILY PO Last administered on 05/10/17 08:32; Admin Dose 81 MG; Start 05/06/17 at 09:00; Status Future hold Atorvastatin Calcium (Lipitor) 20 mg QHS PO Last administered on 05/09/17 20: 38; Admin Dose 20 MG; Start 05/06/17 at 21:00 Carvedilol (Coreg) 25 mg BID PO Last administered on 05/10/17 08:33; Admin Dose 25 MG; Start 05/06/17 at 09:00 Cinacalcet (Sensipar) 60 mg DAILY PO Last administered on 05/10/17 08:35; Admin Dose 60 MG; Start 05/06/17 at 09:00 Diphenhydramine HCl (Benadryl) 50 mg Q12H PRN PO ITCHING Last administered on 21:52; Admin Dose 50 MG; Start 05/06/17 at 00:00 Docusate Sodium (Colace) 100 mg BID PRN PO CONSTIPATION; Start 05/06/17 at 00: 00 Folic Acid (Folic Acid) 1 mg DAILY PO Last administered on 05/10/17 08:33; Admin Dose 1 MG; Start 05/06/17 at 09:00 Lanthanum Carbonate (Fosrenol) 500 mg TID PO Last administered on 05/10/17 08: 34; Admin Dose 500 MG; Start 05/06/17 at 09:00 Losartan Potassium (Cozaar) 50 mg BID PO Last administered on 05/10/17 08:33; Admin Dose 50 MG; Start 05/06/17 at 09:00 Pantoprazole 40 mg 40 mg DAILY@06 PO Last administered on 05/10/17 06:10; Admin Dose 40 MG; Start 05/06/17 at 06:00 Sodium Chloride (NS) 1,000 ml @ 25 mls/hr Q24H IV Last administered on 02:00; Admin Dose 25 MLS/HR; Start 05/05/17 at 23:34 Acetaminophen (Tylenol Tab) 650 mg Q6H PRN PO PAIN LEVEL 1-3 OR FEVER; Start at 00:00 Acetaminophen (Tylenol Supp) 650 mg Q6H PRN RI PAIN LEVEL 1-3 OR FEVER; Start 05/06/17 at 00:00 Acetaminophen/ Hydrocodone Bitart ([place] (5/325)) 1 tab Q6H PRN PO MODERATE PAIN LEVEL 4-6; Start 05/06/17 at 00:00 Bisacodyl (Dulcolax) 5 mg DAILY PRN PO CONSTIPATION; Start 05/06/17 at 00:00 Hydralazine HCl (Apresoline) 50 mg BID PO Last administered on 05/10/17 08:32 ; Admin Dose 50 MG; Start 05/06/17 at 21:00 Ondansetron HCl 4 mg 4 mg Q4H PRN IV NAUSEA AND/OR VOMITING Last administered on 05/09/17 12:21; Admin Dose 4 MG; Start 05/06/17 at 15:00 Ceftriaxone Sodium 50 ml @ 100 mls/hr Q24H IVPB Last administered on 12:34; Admin Dose 100 MLS/HR; Start 05/07/17 at 10:30 Metronidazole 100 ml @ 100 mls/hr Q8 IVPB Last administered on 05/10/17 06:11 ; Admin Dose 100 MLS/HR; Start 05/06/17 at 22:00 Sodium Chloride (NS) 1,000 ml @ 0 mls/hr Q0M PRN IV TO KEEP SBP ABOVE 90; Start 05/06/17 at 17:42 Diphenhydramine HCl (Benadryl) 25 mg QHS PRN IV INSOMNIA Last administered on 09:30; Admin Dose 25 MG; Start 05/08/17 at 12:30 Hydromorphone HCl (Dilaudid) 1 mg Q4H PRN IV SEVERE PAIN LEVEL 7-10 Last administered on 05/10/17 12:27; Admin Dose 1 MG; Start 05/09/17 at 16:00 Heparin Sodium (Porcine) (Heparin (5000 Units/0.5 ml)) 5,000 unit BID SC Last administered on 05/10/17 08:40; Admin Dose 5,000 UNIT; Start 05/09/17 at 21:00 DEONNA DENT May 10, 2017 13:35
--- NOTE | 2017-05-10 16:43 | CARRPT ---
DATE OF PROCEDURE: 05/10/2017 REASON FOR STRESS TESTING: Positive troponini, assess significance in the preoperative state. REFERRING PHYSICIAN: Jensen Wilkerson MD; Crystal Camarena MD FINDINGS: Baseline vital signs currently pulse 89, blood pressure 158/84. Electrocardiogram was normal sinus rhythm, rate 90, normal axis, with lateral T-wave inversion in lead aVL. PROCEDURE: The patient with standard Lexiscan infusion for 10 seconds, followed by radiotracer. Patient's test stopped due to completion of protocol. Maximal achieved blood pressure during the test 147/83. Maximum heart rate during test 106. ECG FINDINGS: Patient did not develop any new Lexiscan-induced ST changes or t wave abnormalities. No documented PVCs. SYMPTOMS: No symptoms of chest pain or shortness of breath. IMPRESSION: 1. No Lexiscan-induced ST or T changes from baseline abnormalities ischemia. 2. No complaints of chest pain or shortness of breath during stress testing. Some mild nausea which resolved later during recovery. No documented PVCs. 3. Report of nuclear images to follow in separate dictation. Dictated By: Javier Breen /fnt/ec /Document#: [id number] CC: Jensen Wilkerson MD; Crystal Camarena MD;*End* MTDD
--- NOTE | 2017-05-10 17:27 | RADRPT ---
PROCEDURE: Lexiscan myocardial perfusion study CLINICAL INDICATION: 47 -year-old patient complaining of chest pain. TECHNIQUE: Lexiscan 0.4 mg intravenously separate acquisition gated myocardial perfusion SPECT usi ng Tc 99m Myoview approximately 30.0 mCi intravenously at stress and Tc-99m Myoview approximately 10 .0 mCi intravenously at rest was performed using the rest/stress sequence. Poststress Sestamibi SPE CT images were obtained in the supine position. COMPARISON: No prior studies. FINDINGS: Perfusion images reveal no evidence of perfusion defects. Lexiscan post stress gated SPECT images demonstrate no wall motion abnormalities. IMPRESSION: 1. No evidence of perfusion defects. 2. No wall motion abnormalities. 3. The left ventricle ejection fraction at stress is 50%. RPTAT: HH .Jocelyn Maxwell MD, MD Date Time Electronically viewed and signed by .Jocelyn Maxwell MD, MD on 05/10/2017 17:10 .L/
[2017-05-10] MEDS: ATORVASTATIN 20 MG TAB PO SCH (20:29)
[2017-05-10] MEDS: DIPHENHYDRAMINE 50 MG CAP PO PRN (20:31)
[2017-05-10] MEDS: SOD CHLORIDE 0.9% 1,000 ML IV SCH (23:34)
[2017-05-11] VITALS (24 sets, daily range): BP systolic 135–158; BP diastolic 67–86; PULSE 74–91; RESP 15–25
[2017-05-11 00:03] LABS: INR 1.11; PROTIME 14.3 Sec (12.2-14.2); PT RATIO 1.1
[2017-05-11] MEDS: HYDROmorphONE 1 MG/ML SYG IV PRN ×4 (03:39→23:02)
[2017-05-11] MEDS: metroNIDAZOLE 500 MG/NS (PMX) 100 ML IVPB SCH ×3 (05:24→21:39)
[2017-05-11] MEDS: PANTOPRAZOLE (EC) 40 MG TAB PO SCH (05:28)
[2017-05-11] MEDS ORDERED: CEFAZOLIN 1 GM INJ ONE (07:00)
[2017-05-11 07:41] LABS: BASOPHILS % 0.3 % (0.0-2.0); EOSINOPHILS # 0.1 10^3/ul (0.0-0.5); EOSINOPHILS % 0.6 % (0.0-7.0); HEMATOCRIT 25.7 % (37.0-47.0); HEMOGLOBIN 8.2 g/dl (12.0-16.0); LYMPHOCYTES # 1.2 10^3/ul (0.8-2.9); LYMPHOCYTES % 13.6 % (15.0-51.0); MEAN CORPUSCULAR HEMOGLOBIN 31.8 pg (29.0-33.0); MEAN CORPUSCULAR HGB CONC 31.9 g/dl (32.0-37.0); MEAN CORPUSCULAR VOLUME 99.6 fl (82.0-101.0); MEAN PLATELET VOLUME 10.5 fl (7.4-10.4); MONOCYTE # 1.2 10^3/ul (0.3-0.9); MONOCYTES % 13.7 % (0.0-11.0); NEUTROPHILS % 71.1 % (39.0-77.0); NUCLEATED RED BLOOD CELLS% 0.5 /100WBC (0.0-0.0); PLATELET COUNT 467 10^3/UL (140-415); RED BLOOD COUNT 2.58 10^6/ul (4.20-5.40); RED CELL DISTRIBUTION WIDTH 18.4 % (11.5-14.5); WHITE BLOOD COUNT 8.8 10^3/ul (4.8-10.8)
--- NOTE | 2017-05-11 07:51 | PN ---
Date/Time of Note Date/Time of Note DATE: 05/11/17 TIME: 07:46 Assessment/Plan Lines/Catheters IV Catheter Type (from Nrs): Peripheral IV Cerda in Place (from Nrs): No Assessment/Plan Chief Complaint/Hosp Course 1.Cholecystitis: poss acalculous but patient with stated history of gallstones; continues to have pain; improving alk phos; patient would like to proceed with surgery; surgery today -surgical intervention today -pain management 2. ESRD: HD today -continue medical management 3. Elevated troponin: No acute cp; SR; poss 2/2 #2; s/p stress test: No Lexiscan -induced ST or T changes from baseline -per cardiology 4. Macrocytic anemia: No acute bleed -monitor and transfuse as needed 5. Vomiting: vomiting daily per patient -?gi consult Patient seen and examined in collaboration with Dr. Alex Frazier. Thank you. Problems: Subjective 24 Hr Interval Summary Feels ok. Tolerated HD yesterday. Continues to have abdominal pain, pending sx today. No fevers, chills, sob, cough, n/v/d/dysuria, cp, palpitations, sz. Exam/Review of Systems Vital Signs Vitals Vital Signs Date Time Temp Pulse Resp B/P Pulse Ox O2 Delivery O2 Flow Rate FiO2 05/11/17 04:14 91 05/11/17 04:00 98.8 20 149/67 99 05/09/17 04:00 Room Air Intake and Output 05/10/17 05/10/17 05/11/17 15:00 23:00 07:00 Intake Total 500 ml 100 ml Output Total 3000 ml Balance -2500 ml 100 ml Exam Free Text/Dictation Constitutional: alert, oriented Psych: anxiety Head: atraumatic, normocephalic Eyes: nl lids, nl sclera ENMT: No mucosa pink and moist (dry) Neck: non-tender, supple Respiratory: normal air movement, No congested cough Cardiovascular: regular rate and rhythm, SR No edema Gastrointestinal: bowel sounds, soft, tender (RUQ), No distended Genitourinary - Female: nl external genitalia Musculoskeletal: nl gait and stance, No muscle weakness Extremities: normal pulses, No edema Neurological: nl mental status, nl speech, nl strength Skin: No rash or lesions Lymph: No nl lymph nodes Results Result Diagram: 05/11/17 0654 05/10/17 0654 NJ ANDRADE NP May 11, 2017 07:51
[2017-05-11 08:01] LABS: CALCIUM 9.5 mg/dl (8.4-10.2); CREATININE 7.8 mg/dl (0.44-1.00); POTASSIUM 4.2 mmol/L (3.5-5.1)
[2017-05-11 08:34] LABS: PHOSPHORUS 7.3 mg/dl (2.5-4.9)
[2017-05-11] MEDS: SEVELAMER CARBONATE 0.8 GM PKT PO SCH ×3 (09:16→18:05)
[2017-05-11] MEDS: LANTHANUM 500 MG CHEW PO SCH ×3 (09:17→21:00)
[2017-05-11] MEDS: CINACALCET 30 MG TAB PO SCH (09:18)
[2017-05-11] MEDS: LOSARTAN 50 MG TAB PO SCH ×2 (09:19→21:38)
[2017-05-11] MEDS: FOLIC ACID 1 MG TAB PO SCH (09:19)
--- NOTE | 2017-05-11 09:19 | RADRPT ---
PROCEDURE: XR Chest. CLINICAL INDICATION: Preop TECHNIQUE: An AP view of the chest was obtained. COMPARISON: Chest x-ray dated 04/09/2017 FINDINGS: There is a right subclavian single lead AICD. Lung volumes are low. There is prominence of the central pulmonary vascular markings with right ela g interstitial opacities. No pneumothorax is seen. The cardiomediastinal silhouette is mildly en larged . The osseous structures are unremarkable. IMPRESSION: 1. Findings suggestive of pulmonary vascular congestion, significantly increased when compared to the prior examination. 2. Right lung interstitial opacities may reflect interstitial edema or pneumonia. Findings are new when compared to the prior examination. 3. Mild cardiomegaly. 4. Right subclavian single lead AICD. RPTAT: HH .Brenda Tomlinson MD, Date Time Electronically viewed and signed by .Brenda Tomlinson MD, on 05/11/2017 09:18 .G/
[2017-05-11] MEDS: AMLODIPINE 5 MG TAB PO SCH ×2 (09:22→21:39)
[2017-05-11] MEDS: CEFTRIAXONE 1 GM/50 ML (PMX) 50 ML IVPB SCH (09:23)
--- NOTE | 2017-05-11 09:41 | CONS ---
Date/Time of Note Date/Time of Note DATE: 05/11/17 TIME: 09:39 Assessment/Plan Assessment/Plan Additional Assessment/Plan 1. Positive troponin in the setting of renal failure with a history of nonischemic cardiomyopathy by catheterization December 2015, thus likely a marker of chronic cardiomyopathy more than suggestive of acute coronary syndrome - EF 50% by STRESS TEST now with no rev defects. 2. Cardiomyopathy with decreased left ventricular ejection fraction- ICD right side in place, check in the office - EF better by most recent test. 3. Hypertension - on high side, Rx with HD - vinh adjust Rxa s /p HD sa needed. 4. Dyslipidemia. 5. Abdominal pain, possible acute cholecystitis. 6. Endstage renal dialysis on hemodialysis- Rx per Dr. Simpson. 7. Anemia- s/p blood tx yesterday - H/H stabe now. 8. Hyperkalemia-improved Consultation Date/Type/Reason Admit Date/Time May 05, 2017 at 18:31 Initial Consult Date 05/06/17 Type of Consultation: cardiology Referring Provider: REMI SIMPSON MD 24 HR Interval Summary Free Text/Dictation NO acute events - no CP noted. EF 50% by STRESS TEST now with no rev defects. ROS: No fever, no chills, no nausea, no vomiting, no diarrhea/constipation No recent weight changes No chest pain, no PND, no orthopnea No dizziness, blurred vision No thirst, no heat or cold intolerance Exam/Review of Systems Vital Signs Vitals Vital Signs Date Time Temp Pulse Resp B/P Pulse Ox O2 Delivery O2 Flow Rate FiO2 05/11/17 08:21 98.2 90 17 157/86 94 05/09/17 04:00 Room Air Intake and Output 05/10/17 05/10/17 05/11/17 15:00 23:00 07:00 Intake Total 500 ml 100 ml Output Total 3000 ml Balance -2500 ml 100 ml Exam General: WN/WD/NAD, AOx 3 HEENT: Unicetric/atraumatic/EOMI (follows commands) NECK: JVD elevated, no thyromegaly Lymph: no lymphadenopathy HEART: regular with no S3, II/ systolic murmur at apex LUNGS: Coarse sounds ABD: soft, NT, ND, +BS : Intact Neuro: non focal SKIN: chronic changes EXT: trace edema Results Result Diagram: 05/11/17 0654 05/11/17 0654 Results 24 hrs Laboratory Tests Test 05/10/17 23:33 05/11/17 06:54 Prothrombin Time 14.3 H Prothrombin Time Ratio 1.1 INR International Normalized Ratio 1.11 White Blood Count 8.8 Red Blood Count 2.58 L Hemoglobin 8.2 L Hematocrit 25.7 L Mean Corpuscular Volume 99.6 Mean Corpuscular Hemoglobin 31.8 Mean Corpuscular Hemoglobin Concent 31.9 L Red Cell Distribution Width 18.4 H Platelet Count 467 H Mean Platelet Volume 10.5 H Neutrophils % 71.1 Lymphocytes % 13.6 L Monocytes % 13.7 H Eosinophils % 0.6 Basophils % 0.3 Nucleated Red Blood Cells % 0.5 H Neutrophils # (Manual) 6.3 Lymphocytes # 1.2 Monocytes # 1.2 H Eosinophils # 0.1 Basophils # 0.0 Nucleated Red Blood Cells # 0.0 Sodium Level 141 Potassium Level 4.2 Chloride Level 99 Carbon Dioxide Level 25 Anion Gap 21 H Blood Urea Nitrogen 37 #H Creatinine 7.80 #H Glucose Level 80 Calcium Level 9.5 Phosphorus Level 7.3 H Magnesium Level 2.0 Medications Medications Current Medications Amlodipine Besylate (Norvasc) 5 mg BID PO Last administered on 05/11/17 09:22 ; Admin Dose 5 MG; Start 05/06/17 at 09:00 Atorvastatin Calcium (Lipitor) 20 mg QHS PO Last administered on 05/10/17 20: 29; Admin Dose 20 MG; Start 05/06/17 at 21:00 Carvedilol (Coreg) 25 mg BID PO Last administered on 05/11/17 09:19; Admin Dose 25 MG; Start 05/06/17 at 09:00 Cinacalcet (Sensipar) 60 mg DAILY PO Last administered on 05/11/17 09:18; Admin Dose 60 MG; Start 05/06/17 at 09:00 Diphenhydramine HCl (Benadryl) 50 mg Q12H PRN PO ITCHING Last administered on 21:52; Admin Dose 50 MG; Start 05/06/17 at 00:00 Docusate Sodium (Colace) 100 mg BID PRN PO CONSTIPATION; Start 05/06/17 at 00: 00 Folic Acid (Folic Acid) 1 mg DAILY PO Last administered on 05/11/17 09:19; Admin Dose 1 MG; Start 05/06/17 at 09:00 Lanthanum Carbonate (Fosrenol) 500 mg TID PO Last administered on 05/11/17 09: 17; Admin Dose 500 MG; Start 05/06/17 at 09:00 Losartan Potassium (Cozaar) 50 mg BID PO Last administered on 05/11/17 09:19; Admin Dose 50 MG; Start 05/06/17 at 09:00 Pantoprazole 40 mg 40 mg DAILY@06 PO Last administered on 05/11/17 05:28; Admin Dose 40 MG; Start 05/06/17 at 06:00 Sodium Chloride (NS) 1,000 ml @ 25 mls/hr Q24H IV Last administered on 02:00; Admin Dose 25 MLS/HR; Start 05/05/17 at 23:34 Acetaminophen (Tylenol Tab) 650 mg Q6H PRN PO PAIN LEVEL 1-3 OR FEVER; Start at 00:00 Acetaminophen (Tylenol Supp) 650 mg Q6H PRN [place] PAIN LEVEL 1-3 OR FEVER; Start 05/06/17 at 00:00 Acetaminophen/ Hydrocodone Bitart ([place] (5/325)) 1 tab Q6H PRN PO MODERATE PAIN LEVEL 4-6; Start 05/06/17 at 00:00 Bisacodyl (Dulcolax) 5 mg DAILY PRN PO CONSTIPATION; Start 05/06/17 at 00:00 Hydralazine HCl (Apresoline) 50 mg BID PO Last administered on 05/11/17 09:22 ; Admin Dose 50 MG; Start 05/06/17 at 21:00 Ondansetron HCl 4 mg 4 mg Q4H PRN IV NAUSEA AND/OR VOMITING Last administered on 05/09/17 12:21; Admin Dose 4 MG; Start 05/06/17 at 15:00 Ceftriaxone Sodium 50 ml @ 100 mls/hr Q24H IVPB Last administered on 09:23; Admin Dose 100 MLS/HR; Start 05/07/17 at 10:30 Metronidazole 100 ml @ 100 mls/hr Q8 IVPB Last administered on 05/11/17 05:24 ; Admin Dose 100 MLS/HR; Start 05/06/17 at 22:00 Sodium Chloride (NS) 1,000 ml @ 0 mls/hr Q0M PRN IV TO KEEP SBP ABOVE 90; Start 05/06/17 at 17:42 Diphenhydramine HCl (Benadryl) 25 mg QHS PRN IV INSOMNIA Last administered on 21:00; Admin Dose 25 MG; Start 05/08/17 at 12:30 Hydromorphone HCl (Dilaudid) 1 mg Q4H PRN IV SEVERE PAIN LEVEL 7-10 Last administered on 05/11/17 09:17; Admin Dose 1 MG; Start 05/09/17 at 16:00 KEITH THOMAS MD May 11, 2017 09:41
[2017-05-11] MEDS ORDERED: ATROPINE 1 MG/10 ML SYRINGE IV PRN (11:30)
[2017-05-11] MEDS ORDERED: HYDROmorphONE (0.2 MG/ML) 10ML SYG IV PRN ×3 (11:30)
[2017-05-11] MEDS ORDERED: EPHEDrine SULFATE 50 MG/5 ML SYG IV PRN (11:30)
[2017-05-11] MEDS ORDERED: morphine (1 MG/ML) 10ML SYRINGE IV PRN ×3 (11:30)
[2017-05-11] MEDS ORDERED: FENTAnyl 50 MCG/ML VIAL IV PRN ×2 (11:30)
[2017-05-11] MEDS ORDERED: ONDANSETRON 4 MG INJ IV PRN (11:30)
[2017-05-11] MEDS ORDERED: DIPHENHYDRAMINE 50 MG INJ IV PRN (11:30)
[2017-05-11] MEDS ORDERED: MEPERIDINE 25 MG INJ IV PRN (11:30)
[2017-05-11] MEDS ORDERED: MIDAZOLAM 1 MG/ML 2 ML INJ IV PRN (11:30)
[2017-05-11] MEDS ORDERED: hydrALAzine 20 MG INJ IV PRN (11:30)
[2017-05-11] MEDS ORDERED: OXYCODONE/ACETAMINOPHEN (5/325) TAB PO PRN ×2 (11:30)
[2017-05-11] MEDS ORDERED: LABETALOL HCL 20MG INJ IV PRN (11:30)
[2017-05-11] MEDS ORDERED: FENTAnyl 50 MCG/ML VIAL ONE (11:45)
[2017-05-11] MEDS ORDERED: NEOSTIGMINE 3 MG/3 ML SYRINGE ONE (11:45)
[2017-05-11] MEDS ORDERED: PROPOFOL 20 ML ONE (11:45)
[2017-05-11] MEDS ORDERED: ROCURONIUM 50 MG INJ ONE (11:45)
[2017-05-11] MEDS ORDERED: LIDOCAINE 2% (SDV) 5 ML INJ ONE (11:45)
[2017-05-11] MEDS ORDERED: MIDAZOLAM 1 MG/ML 2 ML INJ ONE (11:45)
[2017-05-11] MEDS ORDERED: GLYCOPYRROLATE 1 MG INJ ONE (11:45)
[2017-05-11] MEDS ORDERED: DEXAMETHASONE 4 MG/ML 1 ML INJ ONE (11:46)
[2017-05-11] MEDS ORDERED: ONDANSETRON 4 MG INJ ONE (11:46)
[2017-05-11] MEDS ORDERED: SUGAMMADEX SODIUM 200 MG/2 ML VIAL IV ONE (11:49)
[2017-05-11] MEDS ORDERED: BUPIVACAINE 0.25% (MPF) 30 ML INJ ONE (12:40)
[2017-05-11] MEDS ORDERED: LIDOCAINE 1% (MPF) 30 ML INJ ONE (12:40)
[2017-05-11] MEDS ORDERED: LIDOCAINE 2%/EPI (MDV) 20ML INJ ONE (12:40)
--- NOTE | 2017-05-11 13:52 | PN ---
Date/Time of Note Date/Time of Note DATE: 05/11/17 TIME: 13:50 Assessment/Plan VTE Prophylaxis VTE Prophylaxis Intervention: contraindicated Lines/Catheters IV Catheter Type (from Nrs): Peripheral IV Urinary Cath still in place: No Assessment/Plan Chief Complaint/Hosp Course Gen: Awake,alert Neck:supple Lungs:clear to auscultate CVS: Regular rate and rthym Abdomen: +TTP RUQ Ext :no edema +LUE fistula +bruit+ thrill A/P 47 y/o 1. Acalculous cholecystitis 2. Hyperkalemia on HD 3 ESRD on HD M/W/F 4 Elevated Troponin? ACS however in ESRD +elevated trop however nuclear stress test negative 5 HTN 6 Cardiomyopathy 7 Drug abuse 8 Hyperphos Plan - c/w iv abx with Rocephin/flagyl - OR today for surgery, will follow up later today - HD tmw - c/w ASA/ B shon/ ARB/ Amlodipine - GI prophylaxsis Problems: Subjective 24 Hr Interval Summary Free Text/Dictation s/p HD yesterday Nuclear stress test nega for ischemia Pt went to OR this am Exam/Review of Systems Vital Signs Vitals Vital Signs Date Time Temp Pulse Resp B/P Pulse Ox O2 Delivery O2 Flow Rate FiO2 05/11/17 08:21 98.2 90 17 157/86 94 05/09/17 04:00 Room Air Intake and Output 05/10/17 05/10/17 05/11/17 15:00 23:00 07:00 Intake Total 500 ml 100 ml Output Total 3000 ml Balance -2500 ml 100 ml Results Result Diagram: 05/11/17 0654 05/11/17 0654 Results 24 hrs Laboratory Tests Test 05/10/17 23:33 05/11/17 06:54 Prothrombin Time 14.3 H Prothrombin Time Ratio 1.1 INR International Normalized Ratio 1.11 White Blood Count 8.8 Red Blood Count 2.58 L Hemoglobin 8.2 L Hematocrit 25.7 L Mean Corpuscular Volume 99.6 Mean Corpuscular Hemoglobin 31.8 Mean Corpuscular Hemoglobin Concent 31.9 L Red Cell Distribution Width 18.4 H Platelet Count 467 H Mean Platelet Volume 10.5 H Neutrophils % 71.1 Lymphocytes % 13.6 L Monocytes % 13.7 H Eosinophils % 0.6 Basophils % 0.3 Nucleated Red Blood Cells % 0.5 H Neutrophils # (Manual) 6.3 Lymphocytes # 1.2 Monocytes # 1.2 H Eosinophils # 0.1 Basophils # 0.0 Nucleated Red Blood Cells # 0.0 Sodium Level 141 Potassium Level 4.2 Chloride Level 99 Carbon Dioxide Level 25 Anion Gap 21 H Blood Urea Nitrogen 37 #H Creatinine 7.80 #H Glucose Level 80 Calcium Level 9.5 Phosphorus Level 7.3 H Magnesium Level 2.0 Medications Medications Current Medications Amlodipine Besylate (Norvasc) 5 mg BID PO Last administered on 05/11/17 09:22 ; Admin Dose 5 MG; Start 05/06/17 at 09:00 Atorvastatin Calcium (Lipitor) 20 mg QHS PO Last administered on 05/10/17 20: 29; Admin Dose 20 MG; Start 05/06/17 at 21:00 Carvedilol (Coreg) 25 mg BID PO Last administered on 05/11/17 09:19; Admin Dose 25 MG; Start 05/06/17 at 09:00 Cinacalcet (Sensipar) 60 mg DAILY PO Last administered on 05/11/17 09:18; Admin Dose 60 MG; Start 05/06/17 at 09:00 Diphenhydramine HCl (Benadryl) 50 mg Q12H PRN PO ITCHING Last administered on 21:52; Admin Dose 50 MG; Start 05/06/17 at 00:00 Docusate Sodium (Colace) 100 mg BID PRN PO CONSTIPATION; Start 05/06/17 at 00: 00 Folic Acid (Folic Acid) 1 mg DAILY PO Last administered on 05/11/17 09:19; Admin Dose 1 MG; Start 05/06/17 at 09:00 Lanthanum Carbonate (Fosrenol) 500 mg TID PO Last administered on 05/11/17 09: 17; Admin Dose 500 MG; Start 05/06/17 at 09:00 Losartan Potassium (Cozaar) 50 mg BID PO Last administered on 05/11/17 09:19; Admin Dose 50 MG; Start 05/06/17 at 09:00 Pantoprazole 40 mg 40 mg DAILY@06 PO Last administered on 05/11/17 05:28; Admin Dose 40 MG; Start 05/06/17 at 06:00 Sodium Chloride (NS) 1,000 ml @ 25 mls/hr Q24H IV Last administered on 02:00; Admin Dose 25 MLS/HR; Start 05/05/17 at 23:34 Acetaminophen (Tylenol Tab) 650 mg Q6H PRN PO PAIN LEVEL 1-3 OR FEVER; Start at 00:00 Acetaminophen (Tylenol Supp) 650 mg Q6H PRN [place] PAIN LEVEL 1-3 OR FEVER; Start 05/06/17 at 00:00 Acetaminophen/ Hydrocodone Bitart ([place] (5/325)) 1 tab Q6H PRN PO MODERATE PAIN LEVEL 4-6; Start 05/06/17 at 00:00 Bisacodyl (Dulcolax) 5 mg DAILY PRN PO CONSTIPATION; Start 05/06/17 at 00:00 Hydralazine HCl (Apresoline) 50 mg BID PO Last administered on 05/11/17 09:22 ; Admin Dose 50 MG; Start 05/06/17 at 21:00 Ondansetron HCl 4 mg 4 mg Q4H PRN IV NAUSEA AND/OR VOMITING Last administered on 05/09/17 12:21; Admin Dose 4 MG; Start 05/06/17 at 15:00 Ceftriaxone Sodium 50 ml @ 100 mls/hr Q24H IVPB Last administered on 09:23; Admin Dose 100 MLS/HR; Start 05/07/17 at 10:30 Metronidazole 100 ml @ 100 mls/hr Q8 IVPB Last administered on 05/11/17 05:24 ; Admin Dose 100 MLS/HR; Start 05/06/17 at 22:00 Sodium Chloride (NS) 1,000 ml @ 0 mls/hr Q0M PRN IV TO KEEP SBP ABOVE 90; Start 05/06/17 at 17:42 Diphenhydramine HCl (Benadryl) 25 mg QHS PRN IV INSOMNIA Last administered on 21:00; Admin Dose 25 MG; Start 05/08/17 at 12:30 Hydromorphone HCl (Dilaudid) 1 mg Q4H PRN IV SEVERE PAIN LEVEL 7-10 Last administered on 05/11/17 09:17; Admin Dose 1 MG; Start 05/09/17 at 16:00 KHANG WATSON MD May 11, 2017 13:52
--- NOTE | 2017-05-11 16:11 | OPR ---
Date/Time of Note Date/Time of Note DATE: 05/11/17 TIME: 16:06 Operative Report Procedure Date: May 11, 2017 Procedure Description Preoperative Diagnosis: Acalculus cholecystitis Postoperative Diagnosis: Acalculus cholecystitis Abnormal liver color and contour Operation(s) Performed: 1. 3 port laparoscopic cholecystectomy 2. Laparoscopic liver wedge resection biopsy 3. Local anesthetic [place], [id number] 4. Laparoscopic guided transversus abdominis plane block Surgeon: ARABELLA WEATHERS MD Marketing Sales Consultant: Anali Chandler NP Anesthesia: general, local, & regional Anesthesiologist: MD Dajuan Estimated Blood Loss: 0 - 10 ml's Specimens: Liver Gallbladder Tubes/Drains: 15 [place] Lion Complications: None Pt Condition Post Procedure: stable Disposition: PACU Indications: 47-year-old female with abdominal pain and acalculus cholecystitis here for cholecystectomy. Risks include but are not limited to bleeding, infection, abscess, seroma, damage to intestines, damage to the liver, damage to biliary tree, hernia formation, chronic pain, biloma, need for reoperations or further surgeries, [place] , stroke, PE, DVT, pneumonia, organ failures, or even . Procedure Description: Patient was brought and placed supine on the operating table SCDs were placed, preoperative antibiotics were administered, all pressure points were well-padded , and after induction of anesthesia patient was prepped and draped in usual sterile fashion and timeout was performed. Incision was made in the supraumbilical region, Veress was safely inserted, and after a negative SIP test , abdomen was insufflated to 15mmHg. Veress was removed and 5mm port was safely inserted. Laparoscopy was performed with a 5 mm 30 scope. No injuries were identified. The liver looks somewhat abnormal color. Gallbladder is without evidence of section. 12 mm port is placed in subxiphoid under direct visualization followed by another 5 mm port in the right upper quadrant. There was adhesions of omentum to the abdominal wall in the midline and none of our ports were through the adhesions. All port sites were injected with quarter percent Marcaine with epi and 1% lidocaine prior to any incisions. Transversus abdominis plane block was performed under laparoscopic visualization to aid with pain control intra-and postoperatively. Patient was placed in reverse Trendelenburg and right side up on gallbladder was retracted superolaterally. The gallbladder had evidence of infection. Using electrocautery and blunt dissection I was able to identify the cystic artery and cystic duct. The duct tapered into the gallbladder. Full critical angle view was identified. Both structures were clipped twice proximally and once distally and transected. The gallbladder was taken off the liver with electrocautery. Hemostasis was obtained. Gallbladder was placed in an Endo Catch bag and removed through the subxiphoid port site. There was complete hemostasis. Due to the abnormality of the liver, decision was made to perform liver wedge resection which was done with electrocautery and scissor with complete hemostasis right after. The specimen was sent to pathology for further evaluation. 15F lion drain was placed through lateral incision to drain the liver and gb sites. 12 mm made port site fascia was closed with Endo Close & 0 Vicryl in a figure-of -eight manner. Ports and CO2 were removed under direct visualization. Complete hemostasis was obtained. Wounds were thoroughly irrigated & skin was closed with 4-0 Monocryl in subcuticular fashion. Dermabond was applied. Patient was extubated and transferred to recovery room in stable condition and all counts were correct and the end of the operation 2. ARABELLA WEATHERS MD May 11, 2017 16:11
[2017-05-11] MEDS ORDERED: HYDROmorphONE (0.2 MG/ML) 10ML SYG IV ONE (16:38)
[2017-05-11] MEDS: ATORVASTATIN 20 MG TAB PO SCH (21:39)
[2017-05-11] MEDS: SOD CHLORIDE 0.9% 1,000 ML IV SCH (23:34)
[2017-05-12] VITALS (19 sets, daily range): BP systolic 128–179; BP diastolic 59–85; PULSE 70–87; RESP 16–18
[2017-05-12] MEDS: HYDROmorphONE 1 MG/ML SYG IV PRN ×4 (04:25→22:41)
[2017-05-12] MEDS: PANTOPRAZOLE (EC) 40 MG TAB PO SCH (05:20)
[2017-05-12] MEDS: metroNIDAZOLE 500 MG/NS (PMX) 100 ML IVPB SCH ×3 (05:20→22:06)
[2017-05-12 08:06] LABS: ABNORMAL IP MESSAGE 1; BASOPHILS % 0.1 % (0.0-2.0); HEMATOCRIT 25.9 % (37.0-47.0); HEMOGLOBIN 8.3 g/dl (12.0-16.0); LYMPHOCYTES # 0.4 10^3/ul (0.8-2.9); MEAN PLATELET VOLUME 10.5 fl (7.4-10.4); MONOCYTE # 0.9 10^3/ul (0.3-0.9); MONOCYTES % 7.4 % (0.0-11.0); NEUTROPHILS % 88.9 % (39.0-77.0); NUCLEATED RED BLOOD CELLS% 0.2 /100WBC (0.0-0.0); PLATELET COUNT 493 10^3/UL (140-415); RED BLOOD COUNT 2.59 10^6/ul (4.20-5.40); WHITE BLOOD COUNT 12.5 10^3/ul (4.8-10.8)
[2017-05-12 08:07] LABS: POSITIVE DIFF @See below
[2017-05-12] MEDS: SEVELAMER CARBONATE 0.8 GM PKT PO SCH ×3 (08:27→18:04)
[2017-05-12] MEDS: FOLIC ACID 1 MG TAB PO SCH (08:28)
[2017-05-12] MEDS: LOSARTAN 50 MG TAB PO SCH ×2 (08:28→20:53)
[2017-05-12] MEDS: LANTHANUM 500 MG CHEW PO SCH ×3 (08:28→20:52)
[2017-05-12] MEDS: AMLODIPINE 5 MG TAB PO SCH ×2 (08:28→20:52)
[2017-05-12] MEDS: CINACALCET 30 MG TAB PO SCH (08:28)
[2017-05-12 08:50] LABS: ALBUMIN 3.1 g/dl (3.3-4.9); ALBUMIN/GLOBULIN RATIO 0.68; CALCIUM 9.4 mg/dl (8.4-10.2); CREATININE 9.59 mg/dl (0.44-1.00); POTASSIUM 4.7 mmol/L (3.5-5.1); TOTAL PROTEIN 7.6 g/dl (6.1-8.1)
--- NOTE | 2017-05-12 09:13 | PN ---
Date/Time of Note Date/Time of Note DATE: 05/12/17 TIME: 09:02 Assessment/Plan Lines/Catheters IV Catheter Type (from Nrs): Peripheral IV Cerda in Place (from Nrs): No Assessment/Plan Chief Complaint/Hosp Course 1.Acalculous Cholecystitis: s/p lap marvin yesterday; KWESI with mod drainage -ambulate -IS -Ice pack to abdominal wall -pain management 2. ESRD with HD -continue medical management 3. Elevated troponin: No acute cp; SR; poss 2/2 #2; s/p stress test: No Lexiscan -induced ST or T changes from baseline -per cardiology 4. Macrocytic anemia: No acute bleed -monitor and transfuse as needed 5. Leukocytosis: likely reactive -monitor and trend Patient seen and examined in collaboration with Dr. Alex Frazier. Thank you. Problems: Subjective 24 Hr Interval Summary Pain much improved. +flatus, no BM. Tolerating diet without nausea, vomiting. Continues to have output from KWESI. On supplemental O2. Using IS, ambulating. No fevers, chills, sob, congested cough, d/dysuria, cp, palpitations. Exam/Review of Systems Vital Signs Vitals Vital Signs Date Time Temp Pulse Resp B/P Pulse Ox O2 Delivery O2 Flow Rate FiO2 05/12/17 08:17 82 05/12/17 07:52 98.2 18 169/73 98 05/11/17 20:00 Nasal Cannula 2.0 Intake and Output 05/11/17 05/11/17 05/12/17 15:00 23:00 07:00 Intake Total 870 ml 700 ml Output Total 100 ml 50 ml Balance 770 ml 650 ml Exam Free Text/Dictation Constitutional: alert, oriented Psych: less anxious Head: atraumatic, normocephalic Eyes: nl lids, nl sclera ENMT: No mucosa pink and moist (dry) Neck: non-tender, supple Respiratory: diminished supplemental O2 No congested cough Cardiovascular: regular rate and rhythm, SR No edema Gastrointestinal: bowel sounds, soft, min tenderness, RLQ KWESI: serosanguineous drainage No distended Genitourinary - Female: nl external genitalia Musculoskeletal: nl gait and stance, No muscle weakness Extremities: normal pulses, TANIA: fistula +thrill/bruit No edema Neurological: nl mental status, nl speech, nl strength Skin: No rash or lesions, dry Lymph: No nl lymph nodes Results Result Diagram: 05/12/17 0726 05/11/17 0654 [place] ANDRADE NP May 12, 2017 09:12
[2017-05-12] MEDS: CEFTRIAXONE 1 GM/50 ML (PMX) 50 ML IVPB SCH (10:30)
--- NOTE | 2017-05-12 12:36 | PN ---
Date/Time of Note Date/Time of Note DATE: 05/12/17 TIME: 12:34 Assessment/Plan VTE Prophylaxis VTE Prophylaxis Intervention: LMWH Lines/Catheters IV Catheter Type (from Nrs): Peripheral IV Urinary Cath still in place: No Assessment/Plan Chief Complaint/Hosp Course Gen: Awake,alert Neck:supple Lungs:clear to auscultate CVS: Regular rate and rthym Abdomen: mild ttp , KWESI Ext :no edema +LUE fistula +bruit+ thrill A/P 47 y/o 1. Acalculous cholecystitis s/p ,Lap marvin 2. Hyperkalemia on HD 3 ESRD on HD M/W/F 4 Elevated Troponin? ACS however in ESRD +elevated trop however nuclear stress test negative 5 HTN 6 Cardiomyopathy 7 Drug abuse 8 Hyperphos Plan - Transfer to [facility] surg - advance diet - Ambulate - c/w iv abx - HD today - c/w ASA/ B shon/ ARB/ Amlodipine - GI prophylaxsis - ABG on room air Problems: Subjective 24 Hr Interval Summary Free Text/Dictation s/p Lap cholecystectomy Passing gas, no BM Exam/Review of Systems Vital Signs Vitals Vital Signs Date Time Temp Pulse Resp B/P Pulse Ox O2 Delivery O2 Flow Rate FiO2 05/12/17 12:15 97.9 73 18 179/84 96 05/12/17 08:10 Nasal Cannula 2.0 Intake and Output 05/11/17 05/11/17 05/12/17 15:00 23:00 07:00 Intake Total 870 ml 700 ml Output Total 100 ml 50 ml Balance 770 ml 650 ml Results Result Diagram: 05/12/17 0726 05/12/17 0726 Results 24 hrs Laboratory Tests Test 05/12/17 07:26 White Blood Count 12.5 #H Red Blood Count 2.59 L Hemoglobin 8.3 L Hematocrit 25.9 L Mean Corpuscular Volume 100.0 Mean Corpuscular Hemoglobin 32.0 Mean Corpuscular Hemoglobin Concent 32.0 Red Cell Distribution Width 18.0 H Platelet Count 493 H Mean Platelet Volume 10.5 H Neutrophils % 88.9 H Lymphocytes % 3.0 L Monocytes % 7.4 Eosinophils % 0.0 Basophils % 0.1 Nucleated Red Blood Cells % 0.2 H Neutrophils # (Manual) 11.1 H Lymphocytes # 0.4 L Monocytes # 0.9 Eosinophils # 0.0 Basophils # 0.0 Nucleated Red Blood Cells # 0.0 Sodium Level 139 Potassium Level 4.7 Chloride Level 97 Carbon Dioxide Level 23 Anion Gap 24 H Blood Urea Nitrogen 55 H Creatinine 9.59 H Glucose Level 110 Calcium Level 9.4 Total Bilirubin 0.0 L Direct Bilirubin 0.00 Indirect Bilirubin 0.0 Aspartate Amino Transf (AST/SGOT) 51 H Alanine Aminotransferase (ALT/SGPT) 31 Alkaline Phosphatase 284 H Total Protein 7.6 Albumin 3.1 L Globulin 4.50 H Albumin/Globulin Ratio 0.68 Medications Medications Current Medications Amlodipine Besylate (Norvasc) 5 mg BID PO Last administered on 05/12/17 08:28 ; Admin Dose 5 MG; Start 05/06/17 at 09:00 Atorvastatin Calcium (Lipitor) 20 mg QHS PO Last administered on 05/11/17 21: 39; Admin Dose 20 MG; Start 05/06/17 at 21:00 Carvedilol (Coreg) 25 mg BID PO Last administered on 05/12/17 08:29; Admin Dose 25 MG; Start 05/06/17 at 09:00 Cinacalcet (Sensipar) 60 mg DAILY PO Last administered on 05/12/17 08:28; Admin Dose 60 MG; Start 05/06/17 at 09:00 Diphenhydramine HCl (Benadryl) 50 mg Q12H PRN PO ITCHING Last administered on 21:52; Admin Dose 50 MG; Start 05/06/17 at 00:00 Docusate Sodium (Colace) 100 mg BID PRN PO CONSTIPATION; Start 05/06/17 at 00: 00 Folic Acid (Folic Acid) 1 mg DAILY PO Last administered on 05/12/17 08:28; Admin Dose 1 MG; Start 05/06/17 at 09:00 Lanthanum Carbonate (Fosrenol) 500 mg TID PO Last administered on 05/12/17 08: 28; Admin Dose 500 MG; Start 05/06/17 at 09:00 Losartan Potassium (Cozaar) 50 mg BID PO Last administered on 05/12/17 08:28; Admin Dose 50 MG; Start 05/06/17 at 09:00 Pantoprazole 40 mg 40 mg DAILY@06 PO Last administered on 05/12/17 05:20; Admin Dose 40 MG; Start 05/06/17 at 06:00 Sodium Chloride (NS) 1,000 ml @ 25 mls/hr Q24H IV Last administered on 23:34; Admin Dose 25 MLS/HR; Start 05/05/17 at 23:34 Acetaminophen (Tylenol Tab) 650 mg Q6H PRN PO PAIN LEVEL 1-3 OR FEVER; Start at 00:00 Acetaminophen (Tylenol Supp) 650 mg Q6H PRN [place] PAIN LEVEL 1-3 OR FEVER; Start 05/06/17 at 00:00 Acetaminophen/ Hydrocodone Bitart ([place] (5/325)) 1 tab Q6H PRN PO MODERATE PAIN LEVEL 4-6; Start 05/06/17 at 00:00 Bisacodyl (Dulcolax) 5 mg DAILY PRN PO CONSTIPATION; Start 05/06/17 at 00:00 Hydralazine HCl (Apresoline) 50 mg BID PO Last administered on 05/12/17 08:27 ; Admin Dose 50 MG; Start 05/06/17 at 21:00 Ondansetron HCl 4 mg 4 mg Q4H PRN IV NAUSEA AND/OR VOMITING Last administered on 05/09/17 12:21; Admin Dose 4 MG; Start 05/06/17 at 15:00 Ceftriaxone Sodium 50 ml @ 100 mls/hr Q24H IVPB Last administered on 09:23; Admin Dose 100 MLS/HR; Start 05/07/17 at 10:30 Metronidazole 100 ml @ 100 mls/hr Q8 IVPB Last administered on 05/12/17 05:20 ; Admin Dose 100 MLS/HR; Start 05/06/17 at 22:00 Sodium Chloride (NS) 1,000 ml @ 0 mls/hr Q0M PRN IV TO KEEP SBP ABOVE 90; Start 05/06/17 at 17:42 Diphenhydramine HCl (Benadryl) 25 mg QHS PRN IV INSOMNIA Last administered on 21:00; Admin Dose 25 MG; Start 05/08/17 at 12:30 Hydromorphone HCl (Dilaudid) 1 mg Q4H PRN IV SEVERE PAIN LEVEL 7-10 Last administered on 05/12/17 04:25; Admin Dose 1 MG; Start 05/09/17 at 16:00 KHANG WATSON MD May 12, 2017 12:36
--- NOTE | 2017-05-12 15:33 | CONS ---
Date/Time of Note Date/Time of Note DATE: 05/12/17 TIME: 15:29 Assessment/Plan Assessment/Plan Chief Complaint/Hosp Course IMPRESSION: 1. Positive troponin in the setting of renal failure with a history of nonischemic cardiomyopathy by catheterization December 2015, thus likely a marker of chronic cardiomyopathy more than suggestive of acute coronary syndrome.-minimal uptrend/NO cp 2. Cardiomyopathy with decreased left ventricular ejection fraction. 3. Hypertension. 4. Dyslipidemia. 5. Abdominal pain, possible acute cholecystitis. Now post-op s/p Lap marvin 6. Endstage renal dialysis on hemodialysis. 7. Anemia. 8. Hyperkalemia-improved Recc: -Tele -serial ecg's -Continue coreg/norvasc -increase hydralazine to improve BP control -continue statin/asa -HD for volume removal -pnding abdominal surgery -Lexiscan stress test todauy asses significance of positive troponins in a preoperative state Problems: Consultation Date/Type/Reason Admit Date/Time May 05, 2017 at 18:31 Initial Consult Date 05/06/17 Type of Consultation: cardiology Reason for Consultation HTN Referring Provider: REMI SIMPSON MD Exam/Review of Systems Vital Signs Vitals Vital Signs Date Time Temp Pulse Resp B/P Pulse Ox O2 Delivery O2 Flow Rate FiO2 05/12/17 12:15 97.9 73 18 179/84 96 05/12/17 08:10 Nasal Cannula 2.0 Intake and Output 05/11/17 05/11/17 05/12/17 15:00 23:00 07:00 Intake Total 870 ml 700 ml Output Total 100 ml 50 ml Balance 770 ml 650 ml Exam Review of Systems: CONSTITUTIONAL: No fevers, chills. PULMONARY: No sob CARDIOVASCULAR: No chest pain/palpitations GASTROINTESTINAL: No nausea/vomiting. GENITOURINARY: No hematuria/dysuria. MUSCULOSKELETAL: No myagias/arthalgias. PSYCHIATRIC: The patient denies depression. NEUROLOGIC: No weakness Constitutional: alert, oriented Psych: no complaints Head: normocephalic ENMT: mucosa pink and moist Neck: jvd (8-9 cm water), supple Respiratory: diminished breath sounds Cardiovascular: regular rate and rhythm Gastrointestinal: non-tender, soft Musculoskeletal: muscle tone Extremities: edema (none) Neurological: other Results Result Diagram: 05/12/17 0726 05/12/17 0726 Results 24 hrs Laboratory Tests Test 05/12/17 07:26 White Blood Count 12.5 #H Red Blood Count 2.59 L Hemoglobin 8.3 L Hematocrit 25.9 L Mean Corpuscular Volume 100.0 Mean Corpuscular Hemoglobin 32.0 Mean Corpuscular Hemoglobin Concent 32.0 Red Cell Distribution Width 18.0 H Platelet Count 493 H Mean Platelet Volume 10.5 H Neutrophils % 88.9 H Lymphocytes % 3.0 L Monocytes % 7.4 Eosinophils % 0.0 Basophils % 0.1 Nucleated Red Blood Cells % 0.2 H Neutrophils # (Manual) 11.1 H Lymphocytes # 0.4 L Monocytes # 0.9 Eosinophils # 0.0 Basophils # 0.0 Nucleated Red Blood Cells # 0.0 Sodium Level 139 Potassium Level 4.7 Chloride Level 97 Carbon Dioxide Level 23 Anion Gap 24 H Blood Urea Nitrogen 55 H Creatinine 9.59 H Glucose Level 110 Calcium Level 9.4 Total Bilirubin 0.0 L Direct Bilirubin 0.00 Indirect Bilirubin 0.0 Aspartate Amino Transf (AST/SGOT) 51 H Alanine Aminotransferase (ALT/SGPT) 31 Alkaline Phosphatase 284 H Total Protein 7.6 Albumin 3.1 L Globulin 4.50 H Albumin/Globulin Ratio 0.68 Medications Medications Current Medications Amlodipine Besylate (Norvasc) 5 mg BID PO Last administered on 05/12/17 08:28 ; Admin Dose 5 MG; Start 05/06/17 at 09:00 Atorvastatin Calcium (Lipitor) 20 mg QHS PO Last administered on 05/11/17 21: 39; Admin Dose 20 MG; Start 05/06/17 at 21:00 Carvedilol (Coreg) 25 mg BID PO Last administered on 05/12/17 08:29; Admin Dose 25 MG; Start 05/06/17 at 09:00 Cinacalcet (Sensipar) 60 mg DAILY PO Last administered on 05/12/17 08:28; Admin Dose 60 MG; Start 05/06/17 at 09:00 Diphenhydramine HCl (Benadryl) 50 mg Q12H PRN PO ITCHING Last administered on 21:52; Admin Dose 50 MG; Start 05/06/17 at 00:00 Docusate Sodium (Colace) 100 mg BID PRN PO CONSTIPATION; Start 05/06/17 at 00: 00 Folic Acid (Folic Acid) 1 mg DAILY PO Last administered on 05/12/17 08:28; Admin Dose 1 MG; Start 05/06/17 at 09:00 Lanthanum Carbonate (Fosrenol) 500 mg TID PO Last administered on 05/12/17 14: 01; Admin Dose 500 MG; Start 05/06/17 at 09:00 Losartan Potassium (Cozaar) 50 mg BID PO Last administered on 05/12/17 08:28; Admin Dose 50 MG; Start 05/06/17 at 09:00 Pantoprazole 40 mg 40 mg DAILY@06 PO Last administered on 05/12/17 05:20; Admin Dose 40 MG; Start 05/06/17 at 06:00 Sodium Chloride (NS) 1,000 ml @ 25 mls/hr Q24H IV Last administered on 23:34; Admin Dose 25 MLS/HR; Start 05/05/17 at 23:34 Acetaminophen (Tylenol Tab) 650 mg Q6H PRN PO PAIN LEVEL 1-3 OR FEVER; Start at 00:00 Acetaminophen (Tylenol Supp) 650 mg Q6H PRN [place] PAIN LEVEL 1-3 OR FEVER; Start 05/06/17 at 00:00 Acetaminophen/ Hydrocodone Bitart ([place] (5/325)) 1 tab Q6H PRN PO MODERATE PAIN LEVEL 4-6; Start 05/06/17 at 00:00 Bisacodyl (Dulcolax) 5 mg DAILY PRN PO CONSTIPATION; Start 05/06/17 at 00:00 Hydralazine HCl (Apresoline) 50 mg BID PO Last administered on 05/12/17 08:27 ; Admin Dose 50 MG; Start 05/06/17 at 21:00 Ondansetron HCl 4 mg 4 mg Q4H PRN IV NAUSEA AND/OR VOMITING Last administered on 05/09/17 12:21; Admin Dose 4 MG; Start 05/06/17 at 15:00 Ceftriaxone Sodium 50 ml @ 100 mls/hr Q24H IVPB Last administered on 10:30; Admin Dose 100 MLS/HR; Start 05/07/17 at 10:30 Metronidazole 100 ml @ 100 mls/hr Q8 IVPB Last administered on 05/12/17 14:02 ; Admin Dose 100 MLS/HR; Start 05/06/17 at 22:00 Sodium Chloride (NS) 1,000 ml @ 0 mls/hr Q0M PRN IV TO KEEP SBP ABOVE 90; Start 05/06/17 at 17:42 Diphenhydramine HCl (Benadryl) 25 mg QHS PRN IV INSOMNIA Last administered on 21:00; Admin Dose 25 MG; Start 05/08/17 at 12:30 Hydromorphone HCl (Dilaudid) 1 mg Q4H PRN IV SEVERE PAIN LEVEL 7-10 Last administered on 05/12/17 14:01; Admin Dose 1 MG; Start 05/09/17 at 16:00 DEONNA DENT May 12, 2017 15:33
[2017-05-12] MEDS: ATORVASTATIN 20 MG TAB PO SCH (20:52)
[2017-05-12] MEDS: DIPHENHYDRAMINE 50 MG INJ IV PRN (21:29)
[2017-05-12] MEDS: SOD CHLORIDE 0.9% 1,000 ML IV SCH (23:34)
[2017-05-13] VITALS (11 sets, daily range): BP systolic 133–172; BP diastolic 65–75; PULSE 78–92; RESP 16–20
[2017-05-13 05:35] LABS: AADO2 Arterial 112.8 mmHg (7.0-24.0); Allen Test ACCEPTAB; Arterial Base Excess 3.1 mmol/L (-3.0-3); Arterial COHb 0.3 % (0.0-3.0); Arterial Fraction of Oxyhgb 90.1 % (93.0-99.0); Arterial HCO3 26.6 mmol/L (22.0-26.0); Arterial MetHb 0.2 % (0.0-1.5); Arterial Total Hemglobin 9.8 g/dl (12.0-18.0); MODE NASAL CANNULA
[2017-05-13] MEDS: PANTOPRAZOLE (EC) 40 MG TAB PO SCH (05:42)
[2017-05-13] MEDS: HYDROmorphONE 1 MG/ML SYG IV PRN ×5 (05:43→21:54)
[2017-05-13] MEDS: metroNIDAZOLE 500 MG/NS (PMX) 100 ML IVPB SCH ×3 (05:43→20:16)
[2017-05-13 07:44] LABS: BASOPHILS % 0.2 % (0.0-2.0); EOSINOPHILS % 0.2 % (0.0-7.0); HEMATOCRIT 26.7 % (37.0-47.0); HEMOGLOBIN 8.5 g/dl (12.0-16.0); LYMPHOCYTES # 0.9 10^3/ul (0.8-2.9); LYMPHOCYTES % 6.6 % (15.0-51.0); MEAN CORPUSCULAR HEMOGLOBIN 31.7 pg (29.0-33.0); MEAN CORPUSCULAR HGB CONC 31.8 g/dl (32.0-37.0); MEAN CORPUSCULAR VOLUME 99.6 fl (82.0-101.0); MEAN PLATELET VOLUME 10.2 fl (7.4-10.4); MONOCYTE # 1.1 10^3/ul (0.3-0.9); MONOCYTES % 8.6 % (0.0-11.0); NEUTROPHILS % 83.9 % (39.0-77.0); NUCLEATED RED BLOOD CELLS% 0.2 /100WBC (0.0-0.0); PLATELET COUNT 493 10^3/UL (140-415); RED BLOOD COUNT 2.68 10^6/ul (4.20-5.40); RED CELL DISTRIBUTION WIDTH 17.8 % (11.5-14.5); WHITE BLOOD COUNT 13.1 10^3/ul (4.8-10.8)
[2017-05-13 08:14] LABS: ALBUMIN/GLOBULIN RATIO 0.68; CALCIUM 8.6 mg/dl (8.4-10.2); CREATININE 7.14 mg/dl (0.44-1.00); POTASSIUM 3.7 mmol/L (3.5-5.1); TOTAL PROTEIN 7.4 g/dl (6.1-8.1)
[2017-05-13] MEDS: LANTHANUM 500 MG CHEW PO SCH ×3 (09:02→21:00)
[2017-05-13] MEDS: FOLIC ACID 1 MG TAB PO SCH (09:03)
[2017-05-13] MEDS: LOSARTAN 50 MG TAB PO SCH ×2 (09:03→20:15)
[2017-05-13] MEDS: CINACALCET 30 MG TAB PO SCH (09:03)
[2017-05-13] MEDS: SEVELAMER CARBONATE 0.8 GM PKT PO SCH ×3 (09:04→17:20)
[2017-05-13] MEDS: AMLODIPINE 5 MG TAB PO SCH ×2 (09:06→20:16)
--- NOTE | 2017-05-13 10:27 | PN ---
Date/Time of Note Date/Time of Note DATE: 05/13/17 TIME: 10:27 Assessment/Plan VTE Prophylaxis VTE Prophylaxis Intervention: contraindicated Lines/Catheters IV Catheter Type (from Nrsg): Peripheral IV Urinary Cath still in place: No Assessment/Plan Chief Complaint/Hosp Course Gen: Awake,alert Neck:supple Lungs:clear to auscultate CVS: Regular rate and rthym Abdomen: mild ttp , KWESI mod drainage Ext :no edema +LUE fistula +bruit+ thrill A/P 47 y/o 1. Acalculous cholecystitis s/p ,Lap marvin 2. Hyperkalemia on HD 3 ESRD on HD M/W/F 4 Elevated Troponin? ACS however in ESRD +elevated trop however nuclear stress test negative 5 HTN controlled 6 Cardiomyopathy 7 Drug abuse 8 Hyperphos Plan - Transfer to med surg - Ambulate - Spoke to Surgery about KWESI drain - c/w iv abx>po per Surgery - HD tmw - c/w ASA/ B shon/ ARB/ Amlodipine - GI prophylaxsis - ABG with hypoxia> home oxygen - pain control with percocet and dilaudid Problems: Subjective 24 Hr Interval Summary Free Text/Dictation Pt complaining of lot of incisional pain some nausea Denies any vomiting Exam/Review of Systems Vital Signs Vitals Vital Signs Date Time Temp Pulse Resp B/P Pulse Ox O2 Delivery O2 Flow Rate FiO2 05/13/17 08:18 79 05/13/17 07:59 99.3 19 142/69 93 05/12/17 20:00 Nasal Cannula 2.0 Intake and Output 05/12/17 05/12/17 05/13/17 15:00 23:00 07:00 Intake Total 300 ml 400 ml Output Total 3300 ml 30 ml Balance -3000 ml 370 ml Results Result Diagram: 05/13/17 0711 05/13/17 0721 Results 24 hrs Laboratory Tests Test 05/13/17 06:00 05/13/17 07:11 05/13/17 07:21 Blood Gas Specimen Source Blood arterial Arterial Blood Date Drawn 05/13/2017 5:30:54 AM Arterial Blood pH (Temp corrected) 7.484 H Arterial Blood pCO2 (Temp correct) 36.2 Arterial Blood pO2 (Temp corrected) 58.6 L Arterial Blood HCO3 26.6 H Arterial Blood Base Excess 3.1 H Arterial Blood Oxygen Saturation 90.6 L Macario Test ACCEPTAB Arterial Blood Gas Puncture Site Right Radial Arterial Blood Carboxyhemoglobin 0.3 Arterial Blood Methemoglobin 0.2 Blood Gas A-a O2 Differential 112.8 H Oxyhemoglobin Percent 90.1 L Total Hemoglobin 9.8 L Blood Gas Temperature 37.0 Blood Gas Modality NASAL CANNULA FiO2 30.0 Blood Gas Notified Whom UP Blood Gas Notified Time 05/13/2017 5:34:42 AM White Blood Count 13.1 H Red Blood Count 2.68 L Hemoglobin 8.5 L Hematocrit 26.7 L Mean Corpuscular Volume 99.6 Mean Corpuscular Hemoglobin 31.7 Mean Corpuscular Hemoglobin Concent 31.8 L Red Cell Distribution Width 17.8 H Platelet Count 493 H Mean Platelet Volume 10.2 Neutrophils % 83.9 H Lymphocytes % 6.6 L Monocytes % 8.6 Eosinophils % 0.2 Basophils % 0.2 Nucleated Red Blood Cells % 0.2 H Neutrophils # (Manual) 11.0 H Lymphocytes # 0.9 Monocytes # 1.1 H Eosinophils # 0.0 Basophils # 0.0 Nucleated Red Blood Cells # 0.0 Sodium Level 142 Potassium Level 3.7 Chloride Level 98 Carbon Dioxide Level 28 Anion Gap 20 H Blood Urea Nitrogen 43 #H Creatinine 7.14 #H Glucose Level 91 Calcium Level 8.6 Total Bilirubin 0.0 L Direct Bilirubin 0.00 Indirect Bilirubin 0.0 Aspartate Amino Transf (AST/SGOT) 48 H Alanine Aminotransferase (ALT/SGPT) 24 Alkaline Phosphatase 276 H Total Protein 7.4 Albumin 3.0 L Globulin 4.40 H Albumin/Globulin Ratio 0.68 Medications Medications Current Medications Amlodipine Besylate (Norvasc) 5 mg BID PO Last administered on 05/13/17 09:06 ; Admin Dose 5 MG; Start 05/06/17 at 09:00 Atorvastatin Calcium (Lipitor) 20 mg QHS PO Last administered on 05/12/17 20: 52; Admin Dose 20 MG; Start 05/06/17 at 21:00 Carvedilol (Coreg) 25 mg BID PO Last administered on 05/13/17 09:05; Admin Dose 25 MG; Start 05/06/17 at 09:00 Cinacalcet (Sensipar) 60 mg DAILY PO Last administered on 05/13/17 09:03; Admin Dose 60 MG; Start 05/06/17 at 09:00 Diphenhydramine HCl (Benadryl) 50 mg Q12H PRN PO ITCHING Last administered on 21:52; Admin Dose 50 MG; Start 05/06/17 at 00:00 Docusate Sodium (Colace) 100 mg BID PRN PO CONSTIPATION; Start 05/06/17 at 00: 00 Folic Acid (Folic Acid) 1 mg DAILY PO Last administered on 05/13/17 09:03; Admin Dose 1 MG; Start 05/06/17 at 09:00 Lanthanum Carbonate (Fosrenol) 500 mg TID PO Last administered on 05/13/17 09: 02; Admin Dose 500 MG; Start 05/06/17 at 09:00 Losartan Potassium (Cozaar) 50 mg BID PO Last administered on 05/13/17 09:03; Admin Dose 50 MG; Start 05/06/17 at 09:00 Pantoprazole (Protonix Tab) 40 mg DAILY@06 PO Last administered on 05/13/17 05 :42; Admin Dose 40 MG; Start 05/06/17 at 06:00 Acetaminophen (Tylenol Tab) 650 mg Q6H PRN PO PAIN LEVEL 1-3 OR FEVER; Start at 00:00 Acetaminophen (Tylenol Supp) 650 mg Q6H PRN [place] PAIN LEVEL 1-3 OR FEVER; Start 05/06/17 at 00:00 Acetaminophen/ Hydrocodone Bitart ([place] (5/325)) 1 tab Q6H PRN PO MODERATE PAIN LEVEL 4-6 Last administered on 05/13/17 09:02; Admin Dose 1 TAB; Start at 00:00 Bisacodyl (Dulcolax) 5 mg DAILY PRN PO CONSTIPATION; Start 05/06/17 at 00:00 Ondansetron HCl 4 mg 4 mg Q4H PRN IV NAUSEA AND/OR VOMITING Last administered on 05/09/17 12:21; Admin Dose 4 MG; Start 05/06/17 at 15:00 Ceftriaxone Sodium 50 ml @ 100 mls/hr Q24H IVPB Last administered on 10:30; Admin Dose 100 MLS/HR; Start 05/07/17 at 10:30 Metronidazole 100 ml @ 100 mls/hr Q8 IVPB Last administered on 05/13/17 05:43 ; Admin Dose 100 MLS/HR; Start 05/06/17 at 22:00 Sodium Chloride (NS) 1,000 ml @ 0 mls/hr Q0M PRN IV TO KEEP SBP ABOVE 90; Start 05/06/17 at 17:42 Diphenhydramine HCl (Benadryl) 25 mg QHS PRN IV INSOMNIA Last administered on 21:29; Admin Dose 25 MG; Start 05/08/17 at 12:30 Hydromorphone HCl (Dilaudid) 1 mg Q4H PRN IV SEVERE PAIN LEVEL 7-10 Last administered on 05/13/17 09:20; Admin Dose 1 MG; Start 05/09/17 at 16:00 Hydralazine HCl (Apresoline) 75 mg Q8 PO Last administered on 05/13/17 05:42; Admin Dose 75 MG; Start 05/12/17 at 22:00 Oxycodone/ Acetaminophen (Percocet (5/ 325)) 1 tab Q4H PRN PO PAIN; Start 05/13 at 09:30 KHANG WATSON MD May 13, 2017 10:27
[2017-05-13] MEDS: ONDANSETRON 4 MG INJ IV PRN ×2 (10:41→17:20)
[2017-05-13] MEDS: CEFTRIAXONE 1 GM/50 ML (PMX) 50 ML IVPB SCH (12:01)
--- NOTE | 2017-05-13 13:25 | PN ---
Date/Time of Note Date/Time of Note DATE: 05/13/17 TIME: 13:18 Assessment/Plan Lines/Catheters IV Catheter Type (from Nrs): Peripheral IV Cerda in Place (from Nrs): No Assessment/Plan Chief Complaint/Hosp Course 1.Acalculous Cholecystitis: s/p lap marvin yesterday; JENNIFER with mod drainage -increase ambulation -IS-patient must use -Ice pack to abdominal wall -pain management 2. ESRD with HD -HD tomorrow -continue medical management 3. Elevated troponin: No acute cp; SR; poss 2/2 #2; s/p stress test: No Lexiscan -induced ST or T changes from baseline -per cardiology 4. Macrocytic anemia: No acute bleed -monitor and transfuse as needed 5. Leukocytosis: -monitor and trend 6. Hypertension: -medical management -continue HD 7. Hypoalbuminemia:Likely nutritional -optimize nutrition Patient seen and examined in collaboration with Dr. Alex Frazier. Thank you. Problems: Subjective 24 Hr Interval Summary Continues to complain of radha-incisional pain, but overall abdominal pain much improved. Minimal use of IS. Only minimally walking. Hypertension. No fevers, chills, sob, congested cough, cp, palpitations, n/v/d/dysuria. Mod serosanguineous drainage from jennifer. Exam/Review of Systems Vital Signs Vitals Vital Signs Date Time Temp Pulse Resp B/P Pulse Ox O2 Delivery O2 Flow Rate FiO2 05/13/17 12:15 98.2 80 19 139/72 98 05/12/17 20:00 Nasal Cannula 2.0 Intake and Output 05/12/17 05/12/17 05/13/17 15:00 23:00 07:00 Intake Total 300 ml 400 ml Output Total 3300 ml 30 ml Balance -3000 ml 370 ml Exam Free Text/Dictation Constitutional: alert, oriented Psych: less anxious Head: atraumatic, normocephalic Eyes: nl lids, nl sclera ENMT: No mucosa pink and moist (dry) Neck: non-tender, supple Respiratory: diminished supplemental O2 No congested cough Cardiovascular: regular rate and rhythm, SR No edema Gastrointestinal: bowel sounds, soft, radha-incision tenderness, RLQ JENNIFER: serosanguineous drainage No distended Genitourinary - Female: nl external genitalia Musculoskeletal: nl gait and stance, No muscle weakness Extremities: normal pulses, TANIA: fistula +thrill/bruit No edema Neurological: nl mental status, nl speech, nl strength Skin: No rash or lesions, dry Lymph: No nl lymph nodes Results Result Diagram: 05/13/17 0711 05/13/17 0721 NJ ANDRADE NP May 13, 2017 13:25
[2017-05-13] MEDS: OXYCODONE/ACETAMINOPHEN (5/325) TAB PO PRN ×2 (15:55→20:12)
[2017-05-13] MEDS: DOCUSATE SODIUM 100 MG CAP PO PRN (15:56)
[2017-05-13] MEDS: ALBUTEROL/IPRATROPIUM (NEB) 3 ML AMP HHN PRN ×2 (18:08→23:26)
[2017-05-13] MEDS: ATORVASTATIN 20 MG TAB PO SCH (20:15)
--- NOTE | 2017-05-13 21:28 | CONS ---
Date/Time of Note Date/Time of Note DATE: 05/13/17 TIME: 21:26 Assessment/Plan Assessment/Plan Chief Complaint/Hosp Course IMPRESSION: 1. Positive troponin in the setting of renal failure with a history of nonischemic cardiomyopathy by catheterization December 2015, thus likely a marker of chronic cardiomyopathy more than suggestive of acute coronary syndrome.-minimal uptrend/NO cp 2. Cardiomyopathy with decreased left ventricular ejection fraction. 3. Hypertension. 4. Dyslipidemia. 5. Acute cholecystitis. Now post-op s/p Lap marvin 6. Endstage renal dialysis on hemodialysis. 7. Anemia. 8. Hyperkalemia-improved Recc: -Tele -serial ecg's -Continue coreg/norvasc -increase hydralazine further to improve BP control -continue statin/asa -HD for volume removal Problems: Consultation Date/Type/Reason Admit Date/Time May 05, 2017 at 18:31 Initial Consult Date 05/06/17 Type of Consultation: cardiology Reason for Consultation positive troponin/cardiomyopathy Referring Provider: REMI SIMPSON MD Exam/Review of Systems Vital Signs Vitals Vital Signs Date Time Temp Pulse Resp B/P Pulse Ox O2 Delivery O2 Flow Rate FiO2 05/13/17 19:27 98.4 96 20 147/69 90 05/13/17 18:27 3.0 05/13/17 18:14 Nasal Cannula 32 Intake and Output 05/12/17 05/12/17 05/13/17 15:00 23:00 07:00 Intake Total 300 ml 400 ml Output Total 3300 ml 30 ml Balance -3000 ml 370 ml Exam Review of Systems: CONSTITUTIONAL: No fevers, chills. PULMONARY: No sob CARDIOVASCULAR: No chest pain/palpitations GASTROINTESTINAL: No nausea/vomiting. GENITOURINARY: No hematuria/dysuria. MUSCULOSKELETAL: No myagias/arthalgias. PSYCHIATRIC: The patient denies depression. NEUROLOGIC: No weakness Constitutional: alert, oriented Psych: no complaints Head: normocephalic ENMT: mucosa pink and moist Neck: jvd (9 cm water), supple Respiratory: diminished breath sounds (at bases/B) Cardiovascular: regular rate and rhythm Gastrointestinal: non-tender, soft Musculoskeletal: muscle tone (normal) Extremities: edema (none) Neurological: other (No focal deficits) Results Result Diagram: 05/13/17 0711 05/13/17 0721 Results 24 hrs Laboratory Tests Test 05/13/17 06:00 05/13/17 07:11 05/13/17 07:21 Blood Gas Specimen Source Blood arterial Arterial Blood Date Drawn 05/13/2017 5:30:54 AM Arterial Blood pH (Temp corrected) 7.484 H Arterial Blood pCO2 (Temp correct) 36.2 Arterial Blood pO2 (Temp corrected) 58.6 L Arterial Blood HCO3 26.6 H Arterial Blood Base Excess 3.1 H Arterial Blood Oxygen Saturation 90.6 L Macario Test ACCEPTAB Arterial Blood Gas Puncture Site Right Radial Arterial Blood Carboxyhemoglobin 0.3 Arterial Blood Methemoglobin 0.2 Blood Gas A-a O2 Differential 112.8 H Oxyhemoglobin Percent 90.1 L Total Hemoglobin 9.8 L Blood Gas Temperature 37.0 Blood Gas Modality NASAL CANNULA FiO2 30.0 Blood Gas Notified Whom UP Blood Gas Notified Time 05/13/2017 5:34:42 AM White Blood Count 13.1 H Red Blood Count 2.68 L Hemoglobin 8.5 L Hematocrit 26.7 L Mean Corpuscular Volume 99.6 Mean Corpuscular Hemoglobin 31.7 Mean Corpuscular Hemoglobin Concent 31.8 L Red Cell Distribution Width 17.8 H Platelet Count 493 H Mean Platelet Volume 10.2 Neutrophils % 83.9 H Lymphocytes % 6.6 L Monocytes % 8.6 Eosinophils % 0.2 Basophils % 0.2 Nucleated Red Blood Cells % 0.2 H Neutrophils # (Manual) 11.0 H Lymphocytes # 0.9 Monocytes # 1.1 H Eosinophils # 0.0 Basophils # 0.0 Nucleated Red Blood Cells # 0.0 Sodium Level 142 Potassium Level 3.7 Chloride Level 98 Carbon Dioxide Level 28 Anion Gap 20 H Blood Urea Nitrogen 43 #H Creatinine 7.14 #H Glucose Level 91 Calcium Level 8.6 Total Bilirubin 0.0 L Direct Bilirubin 0.00 Indirect Bilirubin 0.0 Aspartate Amino Transf (AST/SGOT) 48 H Alanine Aminotransferase (ALT/SGPT) 24 Alkaline Phosphatase 276 H Total Protein 7.4 Albumin 3.0 L Globulin 4.40 H Albumin/Globulin Ratio 0.68 Medications Medications Current Medications Amlodipine Besylate (Norvasc) 5 mg BID PO Last administered on 05/13/17t 20:16 ; Admin Dose 5 MG; Start 05/06/17 at 09:00 Atorvastatin Calcium (Lipitor) 20 mg QHS PO Last administered on 05/13/17 20: 15; Admin Dose 20 MG; Start 05/06/17 at 21:00 Carvedilol (Coreg) 25 mg BID PO Last administered on 05/13/17 20:15; Admin Dose 25 MG; Start 05/06/17 at 09:00 Cinacalcet (Sensipar) 60 mg DAILY PO Last administered on 05/13/17 09:03; Admin Dose 60 MG; Start 05/06/17 at 09:00 Diphenhydramine HCl (Benadryl) 50 mg Q12H PRN PO ITCHING Last administered on 21:52; Admin Dose 50 MG; Start 05/06/17 at 00:00 Docusate Sodium (Colace) 100 mg BID PRN PO CONSTIPATION Last administered on 15:56; Admin Dose 100 MG; Start 05/06/17 at 00:00 Folic Acid (Folic Acid) 1 mg DAILY PO Last administered on 05/13/17 09:03; Admin Dose 1 MG; Start 05/06/17 at 09:00 Lanthanum Carbonate (Fosrenol) 500 mg TID PO Last administered on 05/13/17 11: 51; Admin Dose 500 MG; Start 05/06/17 at 09:00 Losartan Potassium (Cozaar) 50 mg BID PO Last administered on 05/13/17 20:15; Admin Dose 50 MG; Start 05/06/17 at 09:00 Pantoprazole (Protonix Tab) 40 mg DAILY@06 PO Last administered on 05/13/17 05 :42; Admin Dose 40 MG; Start 05/06/17 at 06:00 Acetaminophen (Tylenol Tab) 650 mg Q6H PRN PO PAIN LEVEL 1-3 OR FEVER; Start at 00:00 Acetaminophen (Tylenol Supp) 650 mg Q6H PRN [place] PAIN LEVEL 1-3 OR FEVER; Start 05/06/17 at 00:00 Acetaminophen/ Hydrocodone Bitart ([place] (5/325)) 1 tab Q6H PRN PO MODERATE PAIN LEVEL 4-6 Last administered on 05/13/17 09:02; Admin Dose 1 TAB; Start at 00:00 Bisacodyl (Dulcolax) 5 mg DAILY PRN PO CONSTIPATION; Start 05/06/17 at 00:00 Ondansetron HCl 4 mg 4 mg Q4H PRN IV NAUSEA AND/OR VOMITING Last administered on 05/13/17 17:20; Admin Dose 4 MG; Start 05/06/17 at 15:00 Ceftriaxone Sodium 50 ml @ 100 mls/hr Q24H IVPB Last administered on 12:01; Admin Dose 100 MLS/HR; Start 05/07/17 at 10:30 Metronidazole 100 ml @ 100 mls/hr Q8 IVPB Last administered on 05/13/17 20:16 ; Admin Dose 100 MLS/HR; Start 05/06/17 at 22:00 Sodium Chloride (NS) 1,000 ml @ 0 mls/hr Q0M PRN IV TO KEEP SBP ABOVE 90; Start 05/06/17 at 17:42 Diphenhydramine HCl (Benadryl) 25 mg QHS PRN IV INSOMNIA Last administered on 21:29; Admin Dose 25 MG; Start 05/08/17 at 12:30 Hydromorphone HCl (Dilaudid) 1 mg Q4H PRN IV SEVERE PAIN LEVEL 7-10 Last administered on 05/13/17 17:20; Admin Dose 1 MG; Start 05/09/17 at 16:00 Hydralazine HCl (Apresoline) 75 mg Q8 PO Last administered on 05/13/17 20:14; Admin Dose 75 MG; Start 05/12/17 at 22:00 Oxycodone/ Acetaminophen (Percocet (5/ 325)) 1 tab Q4H PRN PO PAIN Last administered on 05/13/17 20:12; Admin Dose 1 TAB; Start 05/13/17 at 09:30 DEONNA DENT May 13, 2017 21:28
[2017-05-13] MEDS: DIPHENHYDRAMINE 50 MG INJ IV PRN (23:40)
[2017-05-14] VITALS (10 sets, daily range): BP systolic 120–158; BP diastolic 63–86; PULSE 70–87; RESP 18–20
[2017-05-14] MEDS: OXYCODONE/ACETAMINOPHEN (5/325) TAB PO PRN ×4 (02:32→20:17)
[2017-05-14] MEDS: HYDROmorphONE 1 MG/ML SYG IV PRN ×3 (04:37→17:58)
[2017-05-14] MEDS: PANTOPRAZOLE (EC) 40 MG TAB PO SCH (05:53)
[2017-05-14] MEDS: metroNIDAZOLE 500 MG/NS (PMX) 100 ML IVPB SCH ×3 (05:53→23:03)
[2017-05-14 07:14] LABS: ABNORMAL IP MESSAGE 1; BASOPHILS % 0.1 % (0.0-2.0); EOSINOPHILS % 0.1 % (0.0-7.0); HEMATOCRIT 26.5 % (37.0-47.0); HEMOGLOBIN 8.5 g/dl (12.0-16.0); LYMPHOCYTES # 0.7 10^3/ul (0.8-2.9); LYMPHOCYTES % 4.2 % (15.0-51.0); MEAN CORPUSCULAR HGB CONC 32.1 g/dl (32.0-37.0); MEAN CORPUSCULAR VOLUME 99.6 fl (82.0-101.0); MEAN PLATELET VOLUME 10.8 fl (7.4-10.4); MONOCYTE # 1.7 10^3/ul (0.3-0.9); NUCLEATED RED BLOOD CELLS% 0.2 /100WBC (0.0-0.0); PLATELET COUNT 472 10^3/UL (140-415); RED BLOOD COUNT 2.66 10^6/ul (4.20-5.40); RED CELL DISTRIBUTION WIDTH 17.6 % (11.5-14.5); WHITE BLOOD COUNT 17.2 10^3/ul (4.8-10.8)
[2017-05-14 07:19] LABS: POSITIVE DIFF @See below
[2017-05-14 07:36] LABS: ALBUMIN 2.9 g/dl (3.3-4.9); ALBUMIN/GLOBULIN RATIO 0.69; CALCIUM 8.1 mg/dl (8.4-10.2); CREATININE 8.83 mg/dl (0.44-1.00); POTASSIUM 4.3 mmol/L (3.5-5.1); TOTAL PROTEIN 7.1 g/dl (6.1-8.1)
[2017-05-14] MEDS: SEVELAMER CARBONATE 0.8 GM PKT PO SCH ×4 (09:02→17:35)
[2017-05-14] MEDS: FOLIC ACID 1 MG TAB PO SCH (09:04)
[2017-05-14] MEDS: CEFTRIAXONE 1 GM/50 ML (PMX) 50 ML IVPB SCH (10:13)
[2017-05-14] MEDS: CINACALCET 30 MG TAB PO SCH (10:13)
[2017-05-14] MEDS: LANTHANUM 500 MG CHEW PO SCH ×4 (10:13→21:25)
--- NOTE | 2017-05-14 11:17 | PN ---
Date/Time of Note Date/Time of Note DATE: 05/14/17 TIME: 11:09 Assessment/Plan Lines/Catheters IV Catheter Type (from Nrs): Saline Lock Cerda in Place (from Nrs): No Assessment/Plan Chief Complaint/Hosp Course 1.Acalculous Cholecystitis: s/p lap marvin yesterday; JENNIFER dc'd today; abdominal pain improved -increase ambulation -IS-patient must use -Ice pack to abdominal wall; -pain management 2. ESRD with HD -HD tomorrow -continue medical management 3.Shortness of breath and oxygen desaturation on room air: -supplemental O2 to maintain O2 sat >92% -cxr 4. Macrocytic anemia: No acute bleed -monitor and transfuse as needed 5. Leukocytosis: trending up -monitor and trend 6. Hypertension: -medical management -continue HD 7. Hypoalbuminemia:Likely nutritional -optimize nutrition 8. Elevated troponin: No acute cp; SR; poss 2/2 #2; s/p stress test: No Lexiscan-induced ST or T changes from baseline -per cardiology Patient seen and examined in collaboration with Dr. Alex Frazier. Thank you. Problems: Subjective 24 Hr Interval Summary Min drainage from jennifer- jennifer dc'd. Abdominal pain much improved. Desaturating on room air and sob. Leukocytosis worsened. No fevers, chills, cp, palpitations, n/ v/d/dysuria, chavarria, dizziness. Tolerated ambulation this am. Exam/Review of Systems Vital Signs Vitals Vital Signs Date Time Temp Pulse Resp B/P Pulse Ox O2 Delivery O2 Flow Rate FiO2 05/14/17 08:30 98.8 76 20 148/64 98 05/13/17 23:26 Nasal Cannula 3.0 32 Intake and Output 05/13/17 05/13/17 05/14/17 15:00 23:00 07:00 Intake Total 100 ml 400 ml 300 ml Output Total 45 ml 25 ml Balance 100 ml 355 ml 275 ml Exam Free Text/Dictation Constitutional: alert, oriented Psych: less anxious Head: atraumatic, normocephalic Eyes: nl lids, nl sclera ENMT: No mucosa pink and moist (dry) Neck: non-tender, supple Respiratory: diminished, crackles BLL; supplemental O2 No congested cough Cardiovascular: regular rate and rhythm, SR No edema Gastrointestinal: bowel sounds, soft, radha-incision tenderness improved, No distended Genitourinary - Female: nl external genitalia Musculoskeletal: nl gait and stance, No muscle weakness Extremities: normal pulses, TANIA: fistula +thrill/bruit No edema Neurological: nl mental status, nl speech, nl strength Skin: No rash or lesions, dry Lymph: No nl lymph nodes Results Result Diagram: 05/14/17 0543 05/14/17 0543 NJ ANDRADE NP May 14, 2017 11:17
--- NOTE | 2017-05-14 11:29 | RADRPT ---
PROCEDURE: XR Chest. CLINICAL INDICATION: Shortness of breath TECHNIQUE: Single frontal view of the chest was obtained COMPARISON: 05/11/2017 FINDINGS: See impression. IMPRESSION: Stable cardiomegaly and moderate interstitial pulmonary edema and probable small bilateral pleural e ffusions. Superimposed infection to be determined clinically. No convincing interval change compar ed to chest radiograph from 2 days prior. RPTAT: EE Alex Orellana Physician Date Time Electronically viewed and signed by Alex Orellana Physician on 05/14/2017 11:29 /
[2017-05-14] MEDS: AMLODIPINE 5 MG TAB PO SCH ×2 (11:38→21:26)
[2017-05-14] MEDS: LOSARTAN 50 MG TAB PO SCH ×2 (11:38→21:26)
[2017-05-14 11:52] LABS: ANISOCYTOSIS 3+ (0-0); GIANT THROMBO% (M) 5 % (0-0); MONOCYTES % (M) 11 % (0-11); MYELOCYTES % (M) 1 % (0-0); PLATELET ESTIMATE NORMAL; POIKILOCYTOSIS 3+ (0-0); POLYCHROMASIA 3+ (0-0)
[2017-05-14] MEDS: ASPIRIN (EC) 81 MG TAB PO SCH (13:30)
[2017-05-14] MEDS: ENOXAPARIN 30 MG/0.3 ML SYG SC SCH (14:00)
[2017-05-14] MEDS: DIPHENHYDRAMINE 50 MG INJ IV PRN (15:16)
--- NOTE | 2017-05-14 15:23 | PN ---
Date/Time of Note Date/Time of Note DATE: 05/14/17 TIME: 15:21 Assessment/Plan VTE Prophylaxis VTE Prophylaxis Intervention: ambulation Lines/Catheters IV [facility] Type (from [facility]): Peripheral IV Urinary Cath still in place: No Assessment/Plan Chief Complaint/Hosp Course 1. Acalculous cholecystitis, s/p lap cholecystectomy, POD 1 2. Hyperkalemia, better 3. ESRD on HD M/W/F 4. Hx of drug abuse 5. HTN, controlled 6. Anemia 7. Elevated troponin Problems: Assessment/Plan 1. Continue HD per schedule Subjective 24 Hr Interval Summary Constitutional: improved, no complaints Exam/Review of Systems Vital Signs Vitals Vital Signs Date Time Temp Pulse Resp B/P Pulse Ox O2 Delivery O2 Flow Rate FiO2 05/14/17 14:13 Nasal Cannula 2.0 05/14/17 14:00 98.0 82 19 139/68 87 05/13/17 23:26 32 Intake and Output 05/13/17 05/13/17 05/14/17 15:00 23:00 07:00 Intake Total 100 ml 400 ml 300 ml Output Total 45 ml 25 ml Balance 100 ml 355 ml 275 ml Exam Constitutional: alert, oriented Respiratory: clear to auscultation Cardiovascular: regular rate and rhythm Results Result Diagram: 05/14/17 0543 05/14/17 0543 Results 24 hrs Laboratory Tests Test 05/14/17 05:43 White Blood Count 17.2 #H Red Blood Count 2.66 L Hemoglobin 8.5 L Hematocrit 26.5 L Mean Corpuscular Volume 99.6 Mean Corpuscular Hemoglobin 32.0 Mean Corpuscular Hemoglobin Concent 32.1 Red Cell Distribution Width 17.6 H Platelet Count 472 H Mean Platelet Volume 10.8 H Neutrophils % 85.0 H Segmented Neutrophils % (Manual) 83 H Band Neutrophils % (Manual) 1 Lymphocytes % 4.2 L Lymphocytes % (Manual) 4 L Monocytes % 10.0 Monocytes % (Manual) 11 Eosinophils % 0.1 Basophils % 0.1 Myelocytes % (Manual) 1 H Nucleated Red Blood Cells % 0.2 H Neutrophils # (Manual) 14.3 H Band Neutrophils # 0.1 Absolute Lymphocytes (Manual) 0.6 L Lymphocytes # 0.7 L Monocytes # 1.7 H Absolute Monocytes (Manual) 1.8 H Eosinophils # 0.0 Basophils # 0.0 Myelocytes # 0.1 H Nucleated Red Blood Cells # 0.0 Thrombocytosis 5 H Platelet Estimate NORMAL Polychromasia 3+ Poikilocytosis 3+ Anisocytosis 3+ Macrocytosis 3+ Sodium Level 135 Potassium Level 4.3 Chloride Level 98 Carbon Dioxide Level 25 Anion Gap 16 Blood Urea Nitrogen 59 H Creatinine 8.83 H Glucose Level 72 Calcium Level 8.1 L Total Bilirubin 0.0 L Direct Bilirubin 0.00 Indirect Bilirubin 0.0 Aspartate Amino Transf (AST/SGOT) 45 Alanine Aminotransferase (ALT/SGPT) 28 Alkaline Phosphatase 285 H Total Protein 7.1 Albumin 2.9 L Globulin 4.20 H Albumin/Globulin Ratio 0.69 Medications Medications Current Medications Amlodipine Besylate (Norvasc) 5 mg BID PO Last administered on 05/13/17 20:16 ; Admin Dose 5 MG; Start 05/06/17 at 09:00 Atorvastatin Calcium (Lipitor) 20 mg QHS PO Last administered on 05/13/17 20: 15; Admin Dose 20 MG; Start 05/06/17 at 21:00 Carvedilol (Coreg) 25 mg BID PO Last administered on 05/14/17 09:04; Admin Dose 25 MG; Start 05/06/17 at 09:00 Cinacalcet (Sensipar) 60 mg DAILY PO Last administered on 05/14/17 10:13; Admin Dose 60 MG; Start 05/06/17 at 09:00 Diphenhydramine HCl (Benadryl) 50 mg Q12H PRN PO ITCHING Last administered on 21:52; Admin Dose 50 MG; Start 05/06/17 at 00:00 Docusate Sodium (Colace) 100 mg BID PRN PO CONSTIPATION Last administered on 15:56; Admin Dose 100 MG; Start 05/06/17 at 00:00 Folic Acid (Folic Acid) 1 mg DAILY PO Last administered on 05/14/17 09:04; Admin Dose 1 MG; Start 05/06/17 at 09:00 Lanthanum Carbonate (Fosrenol) 500 mg TID PO Last administered on 05/14/17 10: 13; Admin Dose 500 MG; Start 05/06/17 at 09:00 Losartan Potassium (Cozaar) 50 mg BID PO Last administered on 05/13/17 20:15; Admin Dose 50 MG; Start 05/06/17 at 09:00 Pantoprazole (Protonix Tab) 40 mg DAILY@06 PO Last administered on 05/14/17 05: 53; Admin Dose 40 MG; Start 05/06/17 at 06:00 Acetaminophen (Tylenol Tab) 650 mg Q6H PRN PO PAIN LEVEL 1-3 OR FEVER; Start at 00:00 Acetaminophen (Tylenol Supp) 650 mg Q6H PRN [place] PAIN LEVEL 1-3 OR FEVER; Start 05/06/17 at 00:00 Acetaminophen/ Hydrocodone Bitart ([place] (5/325)) 1 tab Q6H PRN PO MODERATE PAIN LEVEL 4-6 Last administered on 05/13/17 09:02; Admin Dose 1 TAB; Start at 00:00 Bisacodyl (Dulcolax) 5 mg DAILY PRN PO CONSTIPATION; Start 05/06/17 at 00:00 Ondansetron HCl 4 mg 4 mg Q4H PRN IV NAUSEA AND/OR VOMITING Last administered on 05/13/17 17:20; Admin Dose 4 MG; Start 05/06/17 at 15:00 Ceftriaxone Sodium 50 ml @ 100 mls/hr Q24H IVPB Last administered on 05/14/17 10:13; Admin Dose 100 MLS/HR; Start 05/07/17 at 10:30 Metronidazole 100 ml @ 100 mls/hr Q8 IVPB Last administered on 05/14/17 13:55 ; Admin Dose 100 MLS/HR; Start 05/06/17 at 22:00 Sodium Chloride (NS) 1,000 ml @ 0 mls/hr Q0M PRN IV TO KEEP SBP ABOVE 90; Start 05/06/17 at 17:42 Diphenhydramine HCl (Benadryl) 25 mg QHS PRN IV INSOMNIA Last administered on 15:16; Admin Dose 25 MG; Start 05/08/17 at 12:30 Hydromorphone HCl (Dilaudid) 1 mg Q4H PRN IV SEVERE PAIN LEVEL 7-10 Last administered on 05/14/17 10:28; Admin Dose 1 MG; Start 05/09/17 at 16:00 Oxycodone/ Acetaminophen (Percocet (5/ 325)) 1 tab Q4H PRN PO PAIN Last administered on 05/14/17 12:59; Admin Dose 1 TAB; Start 05/13/17 at 09:30 Hydralazine HCl (Apresoline) 100 mg Q8 PO Last administered on 05/14/17 05:53; Admin Dose 100 MG; Start 05/13/17 at 22:00 Enoxaparin Sodium (Lovenox) 30 mg Q24H SC ; Start 05/14/17 at 14:00 Aspirin (Halfprin) 81 mg DAILY PO ; Start 05/14/17 at 13:30 TONY SANDOVAL May 14, 2017 15:23
[2017-05-14 15:35] LABS: AMYLASE 61 U/L (11-123)
--- NOTE | 2017-05-14 17:27 | CONS ---
Date/Time of Note Date/Time of Note DATE: 05/14/17 TIME: 17:25 Assessment/Plan Assessment/Plan Chief Complaint/Hosp Course IMPRESSION: 1. Positive troponin in the setting of renal failure with a history of nonischemic cardiomyopathy by catheterization December 2015, thus likely a marker of chronic cardiomyopathy more than suggestive of acute coronary syndrome.-minimal uptrend/NO cp 2. Cardiomyopathy with decreased left ventricular ejection fraction. 3. Hypertension. 4. Dyslipidemia. 5. Acute cholecystitis. Now post-op s/p Lap marvin 6. Endstage renal dialysis on hemodialysis. 7. Anemia. 8. Hyperkalemia-improved Recc: -Tele -serial ecg's -Continue coreg/norvasc/hydralazine and f/u BP after receiving today -continue statin/asa -f/u abd MARIAJOSE to assess for post-op abnl given abd pain -HD for volume removal Problems: Consultation Date/Type/Reason Admit Date/Time May 05, 2017 at 18:31 Initial Consult Date 05/06/17 Type of Consultation: cardiology Reason for Consultation cardiomyopathy Referring Provider: REMI SIMPSON MD Exam/Review of Systems Vital Signs Vitals Vital Signs Date Time Temp Pulse Resp B/P Pulse Ox O2 Delivery O2 Flow Rate FiO2 05/14/17 16:30 86 05/14/17 16:30 18 05/14/17 14:13 Nasal Cannula 2.0 05/14/17 14:00 98.0 139/68 87 05/13/17 23:26 32 Intake and Output 05/13/17 05/13/17 05/14/17 14:59 22:59 06:59 Intake Total 100 ml 400 ml 300 ml Output Total 45 ml 25 ml Balance 100 ml 355 ml 275 ml Exam Review of Systems: CONSTITUTIONAL: No fevers, chills. PULMONARY: No sob CARDIOVASCULAR: No chest pain/palpitations GASTROINTESTINAL: No nausea/vomiting. GENITOURINARY: No hematuria/dysuria. MUSCULOSKELETAL: No myagias/arthalgias. PSYCHIATRIC: The patient denies depression. NEUROLOGIC: No weakness Constitutional: alert, oriented Psych: no complaints Head: normocephalic ENMT: mucosa pink and moist Neck: jvd (9 cm water), supple Respiratory: diminished breath sounds (at bases/B) Cardiovascular: regular rate and rhythm Gastrointestinal: other (port sites c/d/i with mild TTP), soft Musculoskeletal: muscle tone (normal) Extremities: edema (none) Neurological: other (NO focal deficits) Results Result Diagram: 05/14/17 0543 05/14/17 0543 Results 24 hrs Laboratory Tests Test 05/14/17 05:43 05/14/17 14:58 White Blood Count 17.2 #H Red Blood Count 2.66 L Hemoglobin 8.5 L Hematocrit 26.5 L Mean Corpuscular Volume 99.6 Mean Corpuscular Hemoglobin 32.0 Mean Corpuscular Hemoglobin Concent 32.1 Red Cell Distribution Width 17.6 H Platelet Count 472 H Mean Platelet Volume 10.8 H Neutrophils % 85.0 H Segmented Neutrophils % (Manual) 83 H Band Neutrophils % (Manual) 1 Lymphocytes % 4.2 L Lymphocytes % (Manual) 4 L Monocytes % 10.0 Monocytes % (Manual) 11 Eosinophils % 0.1 Basophils % 0.1 Myelocytes % (Manual) 1 H Nucleated Red Blood Cells % 0.2 H Neutrophils # (Manual) 14.3 H Band Neutrophils # 0.1 Absolute Lymphocytes (Manual) 0.6 L Lymphocytes # 0.7 L Monocytes # 1.7 H Absolute Monocytes (Manual) 1.8 H Eosinophils # 0.0 Basophils # 0.0 Myelocytes # 0.1 H Nucleated Red Blood Cells # 0.0 Thrombocytosis 5 H Platelet Estimate NORMAL Polychromasia 3+ Poikilocytosis 3+ Anisocytosis 3+ Macrocytosis 3+ Sodium Level 135 Potassium Level 4.3 Chloride Level 98 Carbon Dioxide Level 25 Anion Gap 16 Blood Urea Nitrogen 59 H Creatinine 8.83 H Glucose Level 72 Calcium Level 8.1 L Total Bilirubin 0.0 L Direct Bilirubin 0.00 Indirect Bilirubin 0.0 Aspartate Amino Transf (AST/SGOT) 45 Alanine Aminotransferase (ALT/SGPT) 28 Alkaline Phosphatase 285 H Total Protein 7.1 Albumin 2.9 L Globulin 4.20 H Albumin/Globulin Ratio 0.69 Amylase Level 61 Lipase 19 L Medications Medications Current Medications Amlodipine Besylate (Norvasc) 5 mg BID PO Last administered on 05/13/17 20:16 ; Admin Dose 5 MG; Start 05/06/17 at 09:00 Atorvastatin Calcium (Lipitor) 20 mg QHS PO Last administered on 05/13/17 20: 15; Admin Dose 20 MG; Start 05/06/17 at 21:00 Carvedilol (Coreg) 25 mg BID PO Last administered on 05/14/17 09:04; Admin Dose 25 MG; Start 05/06/17 at 09:00 Cinacalcet (Sensipar) 60 mg DAILY PO Last administered on 05/14/17 10:13; Admin Dose 60 MG; Start 05/06/17 at 09:00 Diphenhydramine HCl (Benadryl) 50 mg Q12H PRN PO ITCHING Last administered on 21:52; Admin Dose 50 MG; Start 05/06/17 at 00:00 Docusate Sodium (Colace) 100 mg BID PRN PO CONSTIPATION Last administered on 15:56; Admin Dose 100 MG; Start 05/06/17 at 00:00 Folic Acid (Folic Acid) 1 mg DAILY PO Last administered on 05/14/17 09:04; Admin Dose 1 MG; Start 05/06/17 at 09:00 Lanthanum Carbonate (Fosrenol) 500 mg TID PO Last administered on 05/14/17 10: 13; Admin Dose 500 MG; Start 05/06/17 at 09:00 Losartan Potassium (Cozaar) 50 mg BID PO Last administered on 05/13/17 20:15; Admin Dose 50 MG; Start 05/06/17 at 09:00 Pantoprazole (Protonix Tab) 40 mg DAILY@06 PO Last administered on 05/14/17 05: 53; Admin Dose 40 MG; Start 05/06/17 at 06:00 Acetaminophen (Tylenol Tab) 650 mg Q6H PRN PO PAIN LEVEL 1-3 OR FEVER; Start at 00:00 Acetaminophen (Tylenol Supp) 650 mg Q6H PRN [place] PAIN LEVEL 1-3 OR FEVER; Start 05/06/17 at 00:00 Acetaminophen/ Hydrocodone Bitart ([place] (5/325)) 1 tab Q6H PRN PO MODERATE PAIN LEVEL 4-6 Last administered on 05/13/17 09:02; Admin Dose 1 TAB; Start at 00:00 Bisacodyl (Dulcolax) 5 mg DAILY PRN PO CONSTIPATION; Start 05/06/17 at 00:00 Ondansetron HCl 4 mg 4 mg Q4H PRN IV NAUSEA AND/OR VOMITING Last administered on 05/13/17 17:20; Admin Dose 4 MG; Start 05/06/17 at 15:00 Ceftriaxone Sodium 50 ml @ 100 mls/hr Q24H IVPB Last administered on 05/14/17 10:13; Admin Dose 100 MLS/HR; Start 05/07/17 at 10:30 Metronidazole 100 ml @ 100 mls/hr Q8 IVPB Last administered on 05/14/17 13:55 ; Admin Dose 100 MLS/HR; Start 05/06/17 at 22:00 Sodium Chloride (NS) 1,000 ml @ 0 mls/hr Q0M PRN IV TO KEEP SBP ABOVE 90; Start 05/06/17 at 17:42 Diphenhydramine HCl (Benadryl) 25 mg QHS PRN IV INSOMNIA Last administered on 15:16; Admin Dose 25 MG; Start 05/08/17 at 12:30 Hydromorphone HCl (Dilaudid) 1 mg Q4H PRN IV SEVERE PAIN LEVEL 7-10 Last administered on 05/14/17 10:28; Admin Dose 1 MG; Start 05/09/17 at 16:00 Oxycodone/ Acetaminophen (Percocet (5/ 325)) 1 tab Q4H PRN PO PAIN Last administered on 05/14/17 12:59; Admin Dose 1 TAB; Start 05/13/17 at 09:30 Hydralazine HCl (Apresoline) 100 mg Q8 PO Last administered on 05/14/17 05:53; Admin Dose 100 MG; Start 05/13/17 at 22:00 Enoxaparin Sodium (Lovenox) 30 mg Q24H SC ; Start 05/14/17 at 14:00 Aspirin (Halfprin) 81 mg DAILY PO ; Start 05/14/17 at 13:30 DEONNA DENT May 14, 2017 17:27
--- NOTE | 2017-05-14 17:45 | RADRPT ---
PROCEDURE: US Abdomen and Retroperitoneum. CLINICAL INDICATION: Right upper quadrant abdominal pain with leukocytosis. Status post laparoscop ic cholecystectomy. TECHNIQUE: Multiple real-time longitudinal and transverse images were acquired of the patient's ab domen and retroperitoneum utilizing a curved array transducer. COMPARISON: Abdominal ultrasound from 05/05/2017. FINDINGS: Liver is upper limit normal in size with a slightly coarsened echotexture suggesting steatosis No focal masses identified. Normal hepatopedal flow is seen within the main portal vein. Gallbladder is surgically absent. There is a small heterogeneous collection in the gallbladder fossa measuring 3.4 x 1.8 x 2.3 cm. No intra or extrahepatic biliary dilatation is seen. The common bile duct measures 2.5 mm in maximal dimension. The visualized portions of the pancreas are unremarkable. The spleen is normal in size and homogeneous in echogenicity. No free fluid is identified. The right kidney measures 7.6 x 3.1 x 4.3 cm. The left kidney is not visualized. The right kidney is small and echogenic consistent with known chronic medical renal failure. There are no perinephric fluid collections. No hydronephrosis, mass, or calculus is seen. The aorta and IVC are unremarkable. There is a small right pleural effusion. IMPRESSION: 1. Status post cholecystectomy with a 3.4 x 1.8 x 2.3 cm heterogeneous collection in the gallbladd er fossa. This could certainly represent an inflammatory collection. Further evaluation with CT is suggested. Note: A call report was made to Milly FRANCES on 05/14/2017 5:44:27 PM. RPTAT: AACC Physician Angela Date Time Electronically viewed and signed by Physician Angela on 05/14/2017 17:45 /
--- NOTE | 2017-05-14 19:33 | RADRPT ---
PROCEDURE: Ultrasound of the bilateral lower extremity venous system. CLINICAL INDICATION: Bilateral leg pain and swelling, deep venous thrombosis TECHNIQUE: Chawla scale with and without compression, color doppler, spectral doppler of the venous system of the bilateral lower extremities was performed. Venous augmentation maneuvers were utilized . COMPARISON: No prior studies are available for comparison. FINDINGS: RIGHT: Common femoral vein: Patent. Femoral vein: Patent. Popliteal vein: Patent. Calf veins: Patent. No soft tissue abnormalities are identified. LEFT: Common femoral vein: Patent. Femoral vein: Patent. Popliteal vein: Patent. Calf veins: Patent. No soft tissue abnormalities are identified. IMPRESSION: No evidence of a deep vein thrombosis within the bilateral lower extremities. RPTAT: AADD .Seth Dykes MD, Date Time Electronically viewed and signed by .Seth Dykes MD, on 05/14/2017 19:33 .B/
[2017-05-14] MEDS: ATORVASTATIN 20 MG TAB PO SCH (21:26)
[2017-05-14] MEDS ORDERED: BARIUM SULF 2% 450 ML BTL (BERRY SMOOTHIE) PO ONE (22:30)
[2017-05-15] VITALS (9 sets, daily range): BP systolic 110–147; BP diastolic 58–89; PULSE 79–85; RESP 18
[2017-05-15] MEDS: HYDROmorphONE 1 MG/ML SYG IV PRN ×5 (00:33→20:01)
[2017-05-15] MEDS: ONDANSETRON 4 MG INJ IV PRN ×2 (00:37→21:38)
--- NOTE | 2017-05-15 03:41 | RADRPT ---
PROCEDURE: CT ABDOMEN/PELVIS WITHOUT CONTRAST CLINICAL INDICATION: 47-year-old female with recent laparoscopic cholecystectomy and abdominal johnathon n. TECHNIQUE: The study was performed utilizing a [employer] VCT 64-slice CT scanner. Direct axia l sections were obtained through the abdomen and pelvis without the use of intravenous contrast mate rial. Oral contrast material was utilized. Sagittal and coronal reformations were obtained. One or m ore of the following dose reduction techniques were utilized: automated exposure control, adjustment of the mA and/or kV according to patient's size or use of iterative reconstruction technique. The images were reviewed on a PACS workstation. CTD/vol = 8.6 mGy; Total Exam DLP = 500.8 mGy-cm. COMPARISON: Right upper quadrant ultrasound May 14, 2017; CT chest December 08, 2016. CT abdome n/pelvis November 24, 2013. FINDINGS: The inferior aspect of a AICD device electrode is visualized. Cardiomegaly is noted. There is mode rate pericardial effusion with the maximal thickness of approximately 2.1 cm. Mild pleural effusion s with bilateral lower lobe compressive atelectasis. The liver has a normal size and contour withou t focal areas of abnormal density. No intrahepatic nor extrahepatic biliary ductal dilatation is see n. Surgical clips are present within the gallbladder fossa from the patient's recent cholecystectomy . There is mild infiltration of the gallbladder fossa with a small fluid collection noted measuring approximately 3.0 x 2.3 x 2.3 cm. The pancreas is without areas of abnormal attenuation. The sple en is absent with clips identified within the left upper quadrant from prior splenectomy.. The adre nal glands are unremarkable. The kidneys are markedly atrophic bilaterally with small cysts. No hydr oureteronephrosis nor nephroureterolithiasis is evident. The urinary bladder is decompressed. There is no evidence for bowel obstruction. The periappendiceal region is without inflammatory changes. The uterus is unremarkable. There is minimal pelvic free fluid. The aortoiliac vessels are without aneurysmal dilatation. There is a sclerotic appearance to the osseous structures consistent with griselda al osteodystrophy. There is diffuse infiltration of the soft tissues suggestive of anasarca. IMPRESSION: 1. Cardiomegaly with AICD device. 2. Moderate pericardial effusion. 3. Mild bilateral pleural effusions with bilateral lower lobe compressive atelectasis. 4. Status post cholecystectomy with infiltration and small postoperative fluid identified within th e gallbladder fossa region. 5. Status post splenectomy. 6. Bilaterally atrophic kidneys with small cysts. 7. Minimal pelvic free fluid. 8. Anasarca. 9. Renal osteodystrophy. .Chace Jacobo MD, Date Time Electronically viewed and signed by .Chace Jacobo MD, MD on 05/15/2017 03:40 .M/
[2017-05-15] MEDS: metroNIDAZOLE 500 MG/NS (PMX) 100 ML IVPB SCH ×2 (04:22→13:51)
[2017-05-15] MEDS: PANTOPRAZOLE (EC) 40 MG TAB PO SCH (05:21)
[2017-05-15] MEDS: DIPHENHYDRAMINE 50 MG CAP PO PRN (05:40)
[2017-05-15] MEDS: CINACALCET 30 MG TAB PO SCH (09:42)
[2017-05-15] MEDS: SEVELAMER CARBONATE 0.8 GM PKT PO SCH ×3 (09:42→17:19)
[2017-05-15] MEDS: LOSARTAN 50 MG TAB PO SCH (09:42)
[2017-05-15] MEDS: FOLIC ACID 1 MG TAB PO SCH (09:43)
[2017-05-15] MEDS: ASPIRIN (EC) 81 MG TAB PO SCH (09:43)
[2017-05-15] MEDS: LANTHANUM 500 MG CHEW PO SCH ×3 (09:43→21:36)
[2017-05-15] MEDS: AMLODIPINE 5 MG TAB PO SCH (09:43)
[2017-05-15] MEDS: CEFTRIAXONE 1 GM/50 ML (PMX) 50 ML IVPB SCH (09:44)
--- NOTE | 2017-05-15 10:06 | PN ---
Date/Time of Note Date/Time of Note DATE: 05/15/17 TIME: 09:52 Assessment/Plan Lines/Catheters IV Catheter Type (from [facility]): Saline Lock Cerda in Place (from [facility]): No Assessment/Plan Chief Complaint/Hosp Course 1.Acalculous Cholecystitis: s/p lap marvin; abdominal pain improved; however now with SOB and need for supplemental O2 as well as worsening leukocytosis: CT noted with small fluid collection (for IR drain if drainable), pleural and pericardial effusion.; amylase/lipase nl -increase ambulation as tolerated -IS-patient must use -Ice pack to abdominal wall; -pain management -continue abx 2. ESRD with HD -continue medical management 3.Shortness of breath and oxygen desaturation on room air:CT noted with pleural and pericardial effusion -supplemental O2 to maintain O2 sat >92% -as above -medical management 4. Macrocytic anemia: No acute bleed -monitor and transfuse as needed 5. Leukocytosis: trending up -monitor and trend 6. Hypertension: -medical management -continue HD 7. Hypoalbuminemia:Likely nutritional -optimize nutrition 8. Pericardial effusion: -per cardiology Patient seen and examined in collaboration with Dr. Alex Frazier. Thank you. Problems: Subjective 24 Hr Interval Summary Abdominal pain improved. No noted drainage from any incision sites. Continues to c/o of SOB with activity with need for O2 supplementation. No fevers, chills , acute change in pain, n/v/d/dysuria, cp, palpitations, congested cough. CT with noted fluid collection in gb fossa (will plan for IR drain), pericardial effusion and bilat pleural effusions. Exam/Review of Systems Vital Signs Vitals Vital Signs Date Time Temp Pulse Resp B/P Pulse Ox O2 Delivery O2 Flow Rate FiO2 05/15/17 08:03 98.6 86 18 138/66 92 05/14/17 22:00 Nasal Cannula 2.0 05/13/17 23:26 32 Intake and Output 05/14/17 05/14/17 05/15/17 15:00 23:00 07:00 Intake Total 75 ml 1415 ml 260 ml Output Total 25 ml 3000 ml Balance 50 ml -1585 ml 260 ml Exam Free Text/Dictation Constitutional: alert, oriented Psych: anxious Head: atraumatic, normocephalic Eyes: nl lids, nl sclera ENMT: No mucosa pink and moist (dry) Neck: non-tender, supple Respiratory: diminished, crackles BLL; supplemental O2 No congested cough Cardiovascular: regular rate and rhythm No edema Gastrointestinal: bowel sounds, soft, radha-incision tenderness improved, No drainage from any incision sites No distended Genitourinary - Female: nl external genitalia Musculoskeletal: nl gait and stance, No muscle weakness Extremities: normal pulses, TANIA: fistula +thrill/bruit No edema Neurological: nl mental status, nl speech, nl strength Skin: No rash or lesions, dry Lymph: No nl lymph nodes Results Result Diagram: 05/14/17 0543 05/14/17 0543 NJ ANDRADE NP May 15, 2017 10:04
[2017-05-15] MEDS: ALBUTEROL/IPRATROPIUM (NEB) 3 ML AMP HHN PRN (11:06)
--- NOTE | 2017-05-15 11:54 | PN ---
Date/Time of Note Date/Time of Note DATE: 05/15/17 TIME: 11:53 Assessment/Plan VTE Prophylaxis VTE Prophylaxis Intervention: ambulation Lines/Catheters IV C[facility] Type (from [facility]): Saline Lock Urinary Cath still in place: No Assessment/Plan Chief Complaint/Hosp Course 1. Acalculous cholecystitis, s/p lap cholecystectomy, POD 2 2. Hyperkalemia, better 3. ESRD on HD M/W/F 4. Hx of drug abuse 5. HTN, controlled 6. Anemia 7. Elevated troponin 8. Pleural effusion bilaterally Problems: Subjective 24 Hr Interval Summary Eyes: no complaints Respiratory: shortness of breath Gastrointestinal: pain Genitourinary: no complaints Exam/Review of Systems Vital Signs Vitals Vital Signs Date Time Temp Pulse Resp B/P Pulse Ox O2 Delivery O2 Flow Rate FiO2 05/15/17 11:06 92 2.0 05/15/17 11:06 86 18 Nasal Cannula 05/15/17 08:03 98.6 138/66 05/13/17 23:26 32 Intake and Output 05/14/17 05/14/17 05/15/17 15:00 23:00 07:00 Intake Total 75 ml 1415 ml 260 ml Output Total 25 ml 3000 ml Balance 50 ml -1585 ml 260 ml Exam Constitutional: alert, oriented Neck: supple Respiratory: diminished breath sounds Cardiovascular: regular rate and rhythm Gastrointestinal: soft, surgical scars Results Result Diagram: 05/14/17 0543 05/14/17 0543 Results 24 hrs Laboratory Tests Test 05/14/17 14:58 Amylase Level 61 Lipase 19 L Medications Medications Current Medications Amlodipine Besylate (Norvasc) 5 mg BID PO Last administered on 05/15/17 09:43; Admin Dose 5 MG; Start 05/06/17 at 09:00 Atorvastatin Calcium (Lipitor) 20 mg QHS PO Last administered on 05/14/17 21:26 ; Admin Dose 20 MG; Start 05/06/17 at 21:00 Carvedilol (Coreg) 25 mg BID PO Last administered on 05/15/17 09:43; Admin Dose 25 MG; Start 05/06/17 at 09:00 Cinacalcet (Sensipar) 60 mg DAILY PO Last administered on 05/15/17 09:42; Admin Dose 60 MG; Start 05/06/17 at 09:00 Diphenhydramine HCl (Benadryl) 50 mg Q12H PRN PO ITCHING Last administered on 05:40; Admin Dose 50 MG; Start 05/06/17 at 00:00 Docusate Sodium (Colace) 100 mg BID PRN PO CONSTIPATION Last administered on 15:56; Admin Dose 100 MG; Start 05/06/17 at 00:00 Folic Acid (Folic Acid) 1 mg DAILY PO Last administered on 05/15/17 09:43; Admin Dose 1 MG; Start 05/06/17 at 09:00 Lanthanum Carbonate (Fosrenol) 500 mg TID PO Last administered on 05/15/17 09: 43; Admin Dose 500 MG; Start 05/06/17 at 09:00 Losartan Potassium (Cozaar) 50 mg BID PO Last administered on 05/15/17 09:42; Admin Dose 50 MG; Start 05/06/17 at 09:00 Pantoprazole (Protonix Tab) 40 mg DAILY@06 PO Last administered on 05/15/17 05: 21; Admin Dose 40 MG; Start 05/06/17 at 06:00 Acetaminophen (Tylenol Tab) 650 mg Q6H PRN PO PAIN LEVEL 1-3 OR FEVER; Start at 00:00 Acetaminophen (Tylenol Supp) 650 mg Q6H PRN [place] PAIN LEVEL 1-3 OR FEVER; Start 05/06/17 at 00:00 Acetaminophen/ Hydrocodone Bitart ([place] (5/325)) 1 tab Q6H PRN PO MODERATE PAIN LEVEL 4-6 Last administered on 05/13/17 09:02; Admin Dose 1 TAB; Start at 00:00 Bisacodyl (Dulcolax) 5 mg DAILY PRN PO CONSTIPATION; Start 05/06/17 at 00:00 Ondansetron HCl 4 mg 4 mg Q4H PRN IV NAUSEA AND/OR VOMITING Last administered on 05/15/17 00:37; Admin Dose 4 MG; Start 05/06/17 at 15:00 Ceftriaxone Sodium 50 ml @ 100 mls/hr Q24H IVPB Last administered on 05/15/17 09:44; Admin Dose 100 MLS/HR; Start 05/07/17 at 10:30 Metronidazole 100 ml @ 100 mls/hr Q8 IVPB Last administered on 05/15/17 04:22 ; Admin Dose 100 MLS/HR; Start 05/06/17 at 22:00 Sodium Chloride (NS) 1,000 ml @ 0 mls/hr Q0M PRN IV TO KEEP SBP ABOVE 90; Start 05/06/17 at 17:42 Diphenhydramine HCl (Benadryl) 25 mg QHS PRN IV INSOMNIA Last administered on 15:16; Admin Dose 25 MG; Start 05/08/17 at 12:30 Hydromorphone HCl (Dilaudid) 1 mg Q4H PRN IV SEVERE PAIN LEVEL 7-10 Last administered on 05/15/17 09:45; Admin Dose 1 MG; Start 05/09/17 at 16:00 Oxycodone/ Acetaminophen (Percocet (5/ 325)) 1 tab Q4H PRN PO PAIN Last administered on 05/14/17 20:17; Admin Dose 1 TAB; Start 05/13/17 at 09:30 Hydralazine HCl (Apresoline) 100 mg Q8 PO Last administered on 05/15/17 04:26; Admin Dose 100 MG; Start 05/13/17 at 22:00 Enoxaparin Sodium (Lovenox) 30 mg Q24H SC ; Start 05/14/17 at 14:00 Aspirin (Halfprin) 81 mg DAILY PO Last administered on 05/15/17 09:43; Admin Dose 81 MG; Start 05/14/17 at 13:30 TONY SANDOVAL May 15, 2017 11:54
[2017-05-15 12:16] LABS: BASOPHILS % 0.2 % (0.0-2.0); EOSINOPHILS % 0.2 % (0.0-7.0); HEMATOCRIT 28.1 % (37.0-47.0); HEMOGLOBIN 9.1 g/dl (12.0-16.0); LYMPHOCYTES # 0.7 10^3/ul (0.8-2.9); LYMPHOCYTES % 5.4 % (15.0-51.0); MEAN CORPUSCULAR HEMOGLOBIN 32.3 pg (29.0-33.0); MEAN CORPUSCULAR HGB CONC 32.4 g/dl (32.0-37.0); MEAN CORPUSCULAR VOLUME 99.6 fl (82.0-101.0); MEAN PLATELET VOLUME 10.4 fl (7.4-10.4); MONOCYTE # 1.4 10^3/ul (0.3-0.9); MONOCYTES % 10.5 % (0.0-11.0); NEUTROPHILS % 82.9 % (39.0-77.0); PLATELET COUNT 472 10^3/UL (140-415); RED BLOOD COUNT 2.82 10^6/ul (4.20-5.40); RED CELL DISTRIBUTION WIDTH 17.3 % (11.5-14.5); WHITE BLOOD COUNT 13.3 10^3/ul (4.8-10.8)
[2017-05-15 12:33] LABS: ALBUMIN 3.2 g/dl (3.3-4.9); ALBUMIN/GLOBULIN RATIO 0.69; CALCIUM 8.1 mg/dl (8.4-10.2); CREATININE 7.69 mg/dl (0.44-1.00); POTASSIUM 4.1 mmol/L (3.5-5.1); TOTAL PROTEIN 7.8 g/dl (6.1-8.1)
[2017-05-15] MEDS: ENOXAPARIN 30 MG/0.3 ML SYG SC SCH (13:54)
--- NOTE | 2017-05-15 18:10 | CONS ---
Date/Time of Note Date/Time of Note DATE: 05/15/17 TIME: 17:52 Assessment/Plan Assessment/Plan Additional Assessment/Plan 47y/o female with: 1. Acute acalculous cholecystitis s/p laparoscopic cholecystectomy on 05/11 and liver wedge biopsy for hepatomegaly now with post-surgical fluid collection in the GB fossa associated with transient bump in WBC and worsening symptomatic pleuritic CP and SOB. The fluid collection on the CT does not appear to be well organized at this time to suggest an abscess and I agree with no drainage at this time. However, it is very likely infected as the GB was removed infected and there would have been some leaking of infected bile ducts at the time of the surgery. The most likely organisms are Enterococcus, E coli, Klebsiella, Streptococci and potentially yeast. Blood cultures have been unrevealing which is expected. I would favor continued clinical monitoring and we can extend the coverage a bit with Unasyn. If she improves on Unasyn then she could easily be discharged on Augmentin. 2. ESRD on HD via LUE fistula, 3x weekly with probable mild chronic volume overload exacerbated by the surgery and acute infection/inflammatory state of the gallbladder manifest as increased bilateral pleural effusions with compressive atelectasis and pericardial effusion. 3. History of lupus, per patient has been quiescent for some time 4. CAD with prior history and elevated troponins on admission, per Dr. Spencer. 5. 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 Start UNASYN 3g IV q24h dose adjusted for HD 2. Continue clinical monitoring to ensure pain decreases 3. If pain and SOB do not improve with continued monitoring and HD to remove fluid, then a follow-up CT with IV contrast should be done next week to ensure that CT guided drainage is not required. 4. Discontinue ceftriaxone and metronidazole (done) Consultation Date/Type/Reason Admit Date/Time May 05, 2017 at 18:31 Date of Consultation: May 15, 2017 Type of Consultation: Infectious Diseases Reason for Consultation Post-operative leukocytosis Referring Provider: REMI SIMPSON Hx of Present Illness Ms. Dang is a 47y/o female with a history lupus nephritis with ESRD on HD for the last 9 years who was admitted on 05/05 with abdominal pain. The patient had initially presented with back and abdominal pain last month and was given a week of prednisone. Her abdominal pain subsequently increased, localized to the RUQ and back and developed fever. On admission she had a normal WBC and elevated alkaline phos and intermittently elevated transaminases. She also had elevated troponins. The ultrasound demonstrated thickened GB wall and pericystic fluid. She underwent a laparoscopic cholecystectomy on 05/11 and a wedge biopsy of the liver. Did have incisional RUQ discomfort after the procedure, but it was improving until yesterday. Drain was pulled yesterday as little output. Now with increased RUQ discomfort with radiation to the right flank and prominent pleural chest discomfort on the right limiting her breathing and leading to SOB. The WBC was normal until POD1 when increased to 12 -13-17 and now down to 13 again today. She has been on ceftriaxone and metronidazole since 05/07 and 05/06, respectively. She denies F, C, N, V, cough, sore throat, VANEGAS, myalgia, loose stools. Is having flatus. Walking a bit. Is about to start a liquid diet. Negative on a 14 point review of systems except as noted above Constitutional: improved, no complaints Eyes: no complaints ENT: No congestion Respiratory: shortness of breath Cardiovascular: no complaints Gastrointestinal: pain Genitourinary: no complaints Musculoskeletal: no complaints Skin: No bruising, No erythema, No pruritis Neurologic: No confusion, No dizziness, No headache Endocrine: dry skin Psychological: no complaints Past Medical History Lupus HTN CAD ESRD on HD x9y via LUE fistula Past Surgical History Past Surgical Hx: other Family History Significant Family History: no pertinent family hx Social History Lives in [place] Alcohol Use: none Smoking Status: Never smoker Drug Use: none Exam/Review of Systems Vital Signs Vitals Vital Signs Date Time Temp Pulse Resp B/P Pulse Ox O2 Delivery O2 Flow Rate FiO2 05/15/17 16:46 3.0 05/15/17 11:06 92 05/15/17 11:06 86 18 Nasal Cannula 05/15/17 08:03 98.6 138/66 05/13/17 23:26 32 Intake and Output 05/14/17 05/14/17 05/15/17 15:00 23:00 07:00 Intake Total 75 ml 1415 ml 260 ml Output Total 25 ml 3000 ml Balance 50 ml -1585 ml 260 ml Exam Constitutional: alert, frail, oriented Psych: nl mood/affect Head: atraumatic, normocephalic Eyes: EOMI, PERRL, nl conjunctiva, nl lids, nl sclera ENMT: nl external ears & nose, nl lips & teeth, nl nasal mucosa & septum Neck: non-tender, supple Respiratory: crackles/rales, diminished breath sounds, other (tachypnea) Cardiovascular: nl pulses, regular rate and rhythm Gastrointestinal: other (KWESI drain site is clear, drain removed), soft, tender ( RUQ) Musculoskeletal: nl extremities to inspection, nl gait and stance, other (LUE fistula with thrill and older RUE fistula not working with extensive surgical scarring on the RUE) Extremities: normal pulses, No clubbing, No edema, No pitting pedal edema, No tenderness Neurological: MOTHER HELPER II-XII intact, nl mental status, nl speech, nl strength Skin: nl turgor, other (scattered skin tears) Lymph: nl lymph nodes Results Result Diagram: 05/15/17 1152 05/15/17 1152 Results 24 hrs Laboratory Tests Test 05/15/17 11:52 White Blood Count 13.3 #H Red Blood Count 2.82 L Hemoglobin 9.1 L Hematocrit 28.1 L Mean Corpuscular Volume 99.6 Mean Corpuscular Hemoglobin 32.3 Mean Corpuscular Hemoglobin Concent 32.4 Red Cell Distribution Width 17.3 H Platelet Count 472 H Mean Platelet Volume 10.4 Neutrophils % 82.9 H Lymphocytes % 5.4 L Monocytes % 10.5 Eosinophils % 0.2 Basophils % 0.2 Nucleated Red Blood Cells % 0.0 Neutrophils # (Manual) 11.0 H Lymphocytes # 0.7 L Monocytes # 1.4 H Eosinophils # 0.0 Basophils # 0.0 Nucleated Red Blood Cells # 0.0 Sodium Level 135 Potassium Level 4.1 Chloride Level 96 L Carbon Dioxide Level 26 Anion Gap 17 H Blood Urea Nitrogen 47 #H Creatinine 7.69 H Glucose Level 80 Calcium Level 8.1 L Total Bilirubin 0.0 L Direct Bilirubin 0.00 Indirect Bilirubin 0.0 Aspartate Amino Transf (AST/SGOT) 31 Alanine Aminotransferase (ALT/SGPT) 13 Alkaline Phosphatase 320 H Total Protein 7.8 Albumin 3.2 L Globulin 4.60 H Albumin/Globulin Ratio 0.69 Medications Medications Current Medications Amlodipine Besylate (Norvasc) 5 mg BID PO Last administered on 05/15/17 09:43; Admin Dose 5 MG; Start 05/06/17 at 09:00 Atorvastatin Calcium (Lipitor) 20 mg QHS PO Last administered on 05/14/17 21:26 ; Admin Dose 20 MG; Start 05/06/17 at 21:00 Carvedilol (Coreg) 25 mg BID PO Last administered on 05/15/17 09:43; Admin Dose 25 MG; Start 05/06/17 at 09:00 Cinacalcet (Sensipar) 60 mg DAILY PO Last administered on 05/15/17 09:42; Admin Dose 60 MG; Start 05/06/17 at 09:00 Diphenhydramine HCl (Benadryl) 50 mg Q12H PRN PO ITCHING Last administered on 05:40; Admin Dose 50 MG; Start 05/06/17 at 00:00 Docusate Sodium (Colace) 100 mg BID PRN PO CONSTIPATION Last administered on 15:56; Admin Dose 100 MG; Start 05/06/17 at 00:00 Folic Acid (Folic Acid) 1 mg DAILY PO Last administered on 05/15/17 09:43; Admin Dose 1 MG; Start 05/06/17 at 09:00 Lanthanum Carbonate (Fosrenol) 500 mg TID PO Last administered on 05/15/17 13: 50; Admin Dose 500 MG; Start 05/06/17 at 09:00 Losartan Potassium (Cozaar) 50 mg BID PO Last administered on 05/15/17 09:42; Admin Dose 50 MG; Start 05/06/17 at 09:00 Pantoprazole (Protonix Tab) 40 mg DAILY@06 PO Last administered on 05/15/17 05: 21; Admin Dose 40 MG; Start 05/06/17 at 06:00 Acetaminophen (Tylenol Tab) 650 mg Q6H PRN PO PAIN LEVEL 1-3 OR FEVER; Start at 00:00 Acetaminophen (Tylenol Supp) 650 mg Q6H PRN [place] PAIN LEVEL 1-3 OR FEVER; Start 05/06/17 at 00:00 Acetaminophen/ Hydrocodone Bitart ([place] (5/325)) 1 tab Q6H PRN PO MODERATE PAIN LEVEL 4-6 Last administered on 05/13/17 09:02; Admin Dose 1 TAB; Start at 00:00 Bisacodyl (Dulcolax) 5 mg DAILY PRN PO CONSTIPATION; Start 05/06/17 at 00:00 Ondansetron HCl 4 mg 4 mg Q4H PRN IV NAUSEA AND/OR VOMITING Last administered on 05/15/17 00:37; Admin Dose 4 MG; Start 05/06/17 at 15:00 Ceftriaxone Sodium 50 ml @ 100 mls/hr Q24H IVPB Last administered on 05/15/17 09:44; Admin Dose 100 MLS/HR; Start 05/07/17 at 10:30 Metronidazole 100 ml @ 100 mls/hr Q8 IVPB Last administered on 05/15/17 13:51 ; Admin Dose 100 MLS/HR; Start 05/06/17 at 22:00 Sodium Chloride (NS) 1,000 ml @ 0 mls/hr Q0M PRN IV TO KEEP SBP ABOVE 90; Start 05/06/17 at 17:42 Diphenhydramine HCl (Benadryl) 25 mg QHS PRN IV INSOMNIA Last administered on 15:16; Admin Dose 25 MG; Start 05/08/17 at 12:30 Hydromorphone HCl (Dilaudid) 1 mg Q4H PRN IV SEVERE PAIN LEVEL 7-10 Last administered on 05/15/17 13:50; Admin Dose 1 MG; Start 05/09/17 at 16:00 Oxycodone/ Acetaminophen (Percocet (5/ 325)) 1 tab Q4H PRN PO PAIN Last administered on 05/14/17 20:17; Admin Dose 1 TAB; Start 05/13/17 at 09:30 Hydralazine HCl (Apresoline) 100 mg Q8 PO Last administered on 05/15/17 13:51; Admin Dose 100 MG; Start 05/13/17 at 22:00 Enoxaparin Sodium (Lovenox) 30 mg Q24H SC ; Start 05/14/17 at 14:00 Aspirin (Halfprin) 81 mg DAILY PO Last administered on 05/15/17 09:43; Admin Dose 81 MG; Start 05/14/17 at 13:30 SALEEM HINTON May 15, 2017 18:03
--- NOTE | 2017-05-15 18:35 | RADRPT ---
PROCEDURE: XR Chest. CLINICAL INDICATION: Respiratory distress. TECHNIQUE: AP view of the chest was performed. COMPARISON: May 14, 2017 FINDINGS: There is stable severe cardiomegaly, mild interstitial pulmonary edema and a cardiac defibrillator. Bilateral perihilar air space consolidation with air bronchograms is also seen worrisome for superim posed pneumonia. No pneumothorax or pleural effusion. The osseous structures are stable. The gallbladder has been resected, and there are also surgical clips in the left abdomen. IMPRESSION: 1. Perihilar air space consolidation with air bronchograms worrisome for bilateral pneumonia; there is also superimposed fluid overload with severe cardiomegaly and mild interstitial pulmonary edema. Findings show mild radiographic worsening. 2. Cardiac defibrillator, status post cholecystectomy, and surgical clips in the left abdomen. RPTAT: QQ. .Maria R Isidro MD, Date Time Electronically viewed and signed by .Maria R Isidro MD, on 05/15/2017 18:35 .F/
[2017-05-15] MEDS: ATORVASTATIN 20 MG TAB PO SCH (21:32)
[2017-05-15] MEDS: DIPHENHYDRAMINE 50 MG INJ IV PRN (21:38)
[2017-05-15] MEDS: AMPICILLIN/SULB 3 GM/NS (PMX) 100 ML IVPB SCH (21:38)
[2017-05-16 00:05] VITALS: BP 126/80; PULSE 80
[2017-05-16] MEDS: AMLODIPINE 5 MG TAB PO SCH ×3 (00:22→21:08)
[2017-05-16] MEDS: LOSARTAN 50 MG TAB PO SCH ×3 (00:22→21:07)
[2017-05-16] MEDS: HYDROmorphONE 1 MG/ML SYG IV PRN ×5 (00:23→18:57)
[2017-05-16 00:35] VITALS: BP 133/87; PULSE 80
[2017-05-16 03:36] VITALS: BP 131/72; RESP 18
[2017-05-16] MEDS: PANTOPRAZOLE (EC) 40 MG TAB PO SCH (05:10)
[2017-05-16 05:32] LABS: ABNORMAL IP MESSAGE 1; BASOPHILS % 0.3 % (0.0-2.0); EOSINOPHILS % 0.3 % (0.0-7.0); HEMATOCRIT 30.3 % (37.0-47.0); HEMOGLOBIN 9.6 g/dl (12.0-16.0); LYMPHOCYTES # 0.5 10^3/ul (0.8-2.9); LYMPHOCYTES % 4.2 % (15.0-51.0); MEAN CORPUSCULAR HEMOGLOBIN 31.1 pg (29.0-33.0); MEAN CORPUSCULAR HGB CONC 31.7 g/dl (32.0-37.0); MEAN CORPUSCULAR VOLUME 98.1 fl (82.0-101.0); MONOCYTE # 1.1 10^3/ul (0.3-0.9); MONOCYTES % 9.4 % (0.0-11.0); NEUTROPHILS % 85.3 % (39.0-77.0); PLATELET COUNT 479 10^3/UL (140-415); RED BLOOD COUNT 3.09 10^6/ul (4.20-5.40); RED CELL DISTRIBUTION WIDTH 17.4 % (11.5-14.5); WHITE BLOOD COUNT 11.5 10^3/ul (4.8-10.8)
[2017-05-16 05:50] LABS: POSITIVE DIFF @See below
[2017-05-16 06:01] LABS: CALCIUM 8.7 mg/dl (8.4-10.2); CREATININE 5.8 mg/dl (0.44-1.00)
[2017-05-16] MEDS: SEVELAMER CARBONATE 0.8 GM PKT PO SCH ×3 (07:35→17:20)
[2017-05-16] MEDS: OXYCODONE/ACETAMINOPHEN (5/325) TAB PO PRN (07:59)
[2017-05-16 08:04] VITALS: BP 152/72; RESP 20
[2017-05-16] MEDS: LANTHANUM 500 MG CHEW PO SCH ×3 (08:52→21:00)
[2017-05-16] MEDS: CINACALCET 30 MG TAB PO SCH (08:53)
[2017-05-16] MEDS: ASPIRIN (EC) 81 MG TAB PO SCH (08:53)
[2017-05-16] MEDS: FOLIC ACID 1 MG TAB PO SCH (08:53)
[2017-05-16] MEDS: ALBUTEROL/IPRATROPIUM (NEB) 3 ML AMP HHN PRN (10:57)
--- NOTE | 2017-05-16 13:40 | PN ---
Date/Time of Note Date/Time of Note DATE: 05/16/17 TIME: 13:38 Assessment/Plan VTE Prophylaxis VTE Prophylaxis Intervention: ambulation Lines/Catheters IV [facility] Type [facility]from [facility] Saline Lock Urinary Cath still in place: No Assessment/Plan Chief Complaint/Hosp Course 1. Acalculous cholecystitis, s/p lap cholecystectomy, POD 2 2. Hyperkalemia, better 3. ESRD on HD M/W/F 4. Hx of drug abuse 5. HTN, controlled 6. Anemia 7. Elevated troponin 8. Pleural effusion bilaterally Problems: Assessment/Plan 1. Continue HD 2. continue current regime Subjective 24 Hr Interval Summary Constitutional: improved, no complaints Gastrointestinal: pain Skin: no complaints Exam/Review of Systems Vital Signs Vitals Vital Signs Date Time Temp Pulse Resp B/P Pulse Ox O2 Delivery O2 Flow Rate FiO2 05/16/17 10:57 84 20 93 Nasal Cannula 3.0 05/16/17 08:04 98.0 152/72 05/13/17 23:26 32 Intake and Output 05/15/17 05/15/17 05/16/17 15:00 23:00 07:00 Intake Total 150 ml 100 ml 1640 ml Output Total 4500 ml Balance 150 ml 100 ml -2860 ml Exam Constitutional: alert, oriented ENMT: nl external ears & nose Neck: supple Gastrointestinal: surgical scars Results Result Diagram: 05/16/17 0439 05/16/17 0439 Results 24 hrs Laboratory Tests Test 05/16/17 04:39 White Blood Count 11.5 H Red Blood Count 3.09 L Hemoglobin 9.6 L Hematocrit 30.3 L Mean Corpuscular Volume 98.1 Mean Corpuscular Hemoglobin 31.1 Mean Corpuscular Hemoglobin Concent 31.7 L Red Cell Distribution Width 17.4 H Platelet Count 479 H Mean Platelet Volume 11.0 H Neutrophils % 85.3 H Lymphocytes % 4.2 L Monocytes % 9.4 Eosinophils % 0.3 Basophils % 0.3 Nucleated Red Blood Cells % 0.0 Neutrophils # (Manual) 9.8 H Lymphocytes # 0.5 L Monocytes # 1.1 H Eosinophils # 0.0 Basophils # 0.0 Nucleated Red Blood Cells # 0.0 Sodium Level 139 Potassium Level 4.0 Chloride Level 100 Carbon Dioxide Level 28 Anion Gap 15 Blood Urea Nitrogen 30 #H Creatinine 5.80 H Glucose Level 90 Calcium Level 8.7 Medications Medications Current Medications Amlodipine Besylate (Norvasc) 5 mg BID PO Last administered on 05/16/17 08:53; Admin Dose 5 MG; Start 05/06/17 at 09:00 Atorvastatin Calcium (Lipitor) 20 mg QHS PO Last administered on 05/15/17 21:32 ; Admin Dose 20 MG; Start 05/06/17 at 21:00 Carvedilol (Coreg) 25 mg BID PO Last administered on 05/16/17 08:53; Admin Dose 25 MG; Start 05/06/17 at 09:00 Cinacalcet (Sensipar) 60 mg DAILY PO Last administered on 05/16/17 08:53; Admin Dose 60 MG; Start 05/06/17 at 09:00 Diphenhydramine HCl (Benadryl) 50 mg Q12H PRN PO ITCHING Last administered on 05:40; Admin Dose 50 MG; Start 05/06/17 at 00:00 Docusate Sodium (Colace) 100 mg BID PRN PO CONSTIPATION Last administered on 15:56; Admin Dose 100 MG; Start 05/06/17 at 00:00 Folic Acid (Folic Acid) 1 mg DAILY PO Last administered on 05/16/17 08:53; Admin Dose 1 MG; Start 05/06/17 at 09:00 Lanthanum Carbonate (Fosrenol) 500 mg TID PO Last administered on 05/16/17 12: 07; Admin Dose 500 MG; Start 05/06/17 at 09:00 Losartan Potassium (Cozaar) 50 mg BID PO Last administered on 05/16/17 08:52; Admin Dose 50 MG; Start 05/06/17 at 09:00 Pantoprazole (Protonix Tab) 40 mg DAILY@06 PO Last administered on 05/16/17 05: 10; Admin Dose 40 MG; Start 05/06/17 at 06:00 Acetaminophen (Tylenol Tab) 650 mg Q6H PRN PO PAIN LEVEL 1-3 OR FEVER; Start at 00:00 Acetaminophen (Tylenol Supp) 650 mg Q6H PRN [place] PAIN LEVEL 1-3 OR FEVER; Start 05/06/17 at 00:00 Acetaminophen/ Hydrocodone Bitart ([place] (5/325)) 1 tab Q6H PRN PO MODERATE PAIN LEVEL 4-6 Last administered on 05/13/17 09:02; Admin Dose 1 TAB; Start at 00:00 Bisacodyl (Dulcolax) 5 mg DAILY PRN PO CONSTIPATION; Start 05/06/17 at 00:00 Ondansetron HCl 4 mg 4 mg Q4H PRN IV NAUSEA AND/OR VOMITING Last administered on 05/15/17 21:38; Admin Dose 4 MG; Start 05/06/17 at 15:00 Sodium Chloride (NS) 1,000 ml @ 0 mls/hr Q0M PRN IV TO KEEP SBP ABOVE 90; Start 05/06/17 at 17:42 Diphenhydramine HCl (Benadryl) 25 mg QHS PRN IV INSOMNIA Last administered on 21:38; Admin Dose 25 MG; Start 05/08/17 at 12:30 Hydromorphone HCl (Dilaudid) 1 mg Q4H PRN IV SEVERE PAIN LEVEL 7-10 Last administered on 05/16/17 09:21; Admin Dose 1 MG; Start 05/09/17 at 16:00 Oxycodone/ Acetaminophen (Percocet (5/ 325)) 1 tab Q4H PRN PO PAIN Last administered on 05/16/17 07:59; Admin Dose 1 TAB; Start 05/13/17 at 09:30 Hydralazine HCl (Apresoline) 100 mg Q8 PO Last administered on 05/16/17 00:21; Admin Dose 100 MG; Start 05/13/17 at 22:00 Enoxaparin Sodium (Lovenox) 30 mg Q24H SC ; Start 05/14/17 at 14:00 Aspirin 81 mg 81 mg DAILY PO Last administered on 05/16/17 08:53; Admin Dose 81 MG; Start 05/14/17 at 13:30 Ampicillin Sodium/ Sulbactam Sodium (Unasyn 3gm/NS (Pmx)) 100 ml @ 100 mls/hr QPM IVPB Last administered on 05/15/17 21:38; Admin Dose 100 MLS/HR; Start 05/15 at 21:00 TONY SANDOVAL May 16, 2017 13:39
[2017-05-16] MEDS: ONDANSETRON 4 MG INJ IV PRN (14:18)
[2017-05-16 14:22] VITALS: BP 153/72; RESP 18
[2017-05-16] MEDS: ENOXAPARIN 30 MG/0.3 ML SYG SC SCH (14:22)
--- NOTE | 2017-05-16 16:05 | CONS ---
Date/Time of Note Date/Time of Note DATE: 05/16/17 TIME: 16:01 Assessment/Plan Assessment/Plan Chief Complaint/Hosp Course Ms. Dang is a 47y/o female with a history lupus nephritis with ESRD on HD for the last 9 years who was admitted on 05/05 with abdominal pain. The patient had initially presented with back and abdominal pain last month and was given a week of prednisone. Her abdominal pain subsequently increased, localized to the RUQ and back and developed fever. On admission she had a normal WBC and elevated alkaline phos and intermittently elevated transaminases. She also had elevated troponins. The ultrasound demonstrated thickened GB wall and pericystic fluid. She underwent a laparoscopic cholecystectomy on 05/11 and a wedge biopsy of the liver. Did have incisional RUQ discomfort after the procedure, but it was improving until yesterday. Drain was pulled yesterday as little output. Now with increased RUQ discomfort with radiation to the right flank and prominent pleural chest discomfort on the right limiting her breathing and leading to SOB. The WBC was normal until POD1 when increased to 12 -13-17 and now down to 13 again today. She has been on ceftriaxone and metronidazole since 05/07 and 05/06, respectively. She denies F, C, N, V, cough, sore throat, VANEGAS, myalgia, loose stools. Is having flatus. Walking a bit. Is about to start a liquid diet. Problems: Additional Assessment/Plan 47y/o female with: 1. Acute acalculous cholecystitis s/p laparoscopic cholecystectomy on 05/11 and liver wedge biopsy for hepatomegaly now with post-surgical fluid collection in the GB fossa associated with transient bump in WBC and worsening symptomatic pleuritic CP and SOB. The fluid collection on the CT does not appear to be well organized at this time to suggest an abscess and I agree with no drainage at this time. However, it is very likely infected as the GB was removed infected and there would have been some leaking of infected bile ducts at the time of the surgery. The most likely organisms are Enterococcus, E coli, Klebsiella, Streptococci and potentially yeast. Blood cultures have been unrevealing which is expected. Doing better overnight, with continued improvement in the WBC. No positive cultures. 2. ESRD on HD via LUE fistula, 3x weekly with probable mild chronic volume overload exacerbated by the surgery and acute infection/inflammatory state of the gallbladder manifest as increased bilateral pleural effusions with compressive atelectasis and pericardial effusion. Improved respiratory status after 3.5L of fluid removed with HD today. 3. History of lupus, per patient has been quiescent for some time 4. CAD with prior history and elevated troponins on admission, per Dr. Spencer. 5. 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 Continue UNASYN 3g IV q24h dose adjusted for HD 2. Continue to remove fluid with increased frequency of HD Consultation Date/Type/Reason Admit Date/Time May 05, 2017 at 18:31 Initial Consult Date 05/15/17 Type of Consultation: Infectious Diseases Referring Provider: REMI SIMPSON MD 24 HR Interval Summary Free Text/Dictation Improved overnight with decreased pleuritic pain, decreased SOB and decreased RUQ pain. Was able to walk around the unit x2 today, had small BM last night. Eating some food with a bit of nausea. Had HD today wtih removal of 3.5L. No pruritus. Exam/Review of Systems Vital Signs Vitals Vital Signs Date Time Temp Pulse Resp B/P Pulse Ox O2 Delivery O2 Flow Rate FiO2 05/16/17 14:22 98.9 82 18 153/72 93 05/16/17 10:57 Nasal Cannula 3.0 05/13/17 23:26 32 Intake and Output 05/15/17 05/15/17 05/16/17 15:00 23:00 07:00 Intake Total 150 ml 100 ml 1640 ml Output Total 4500 ml Balance 150 ml 100 ml -2860 ml Exam Constitutional: alert, frail, oriented Psych: nl mood/affect Head: atraumatic, normocephalic Eyes: EOMI, PERRL, nl conjunctiva, nl lids, nl sclera ENMT: nl external ears & nose, nl lips & teeth, nl nasal mucosa & septum Neck: non-tender, supple Respiratory: crackles/rales, comfortable, scattered wheezes Cardiovascular: nl pulses, regular rate and rhythm Gastrointestinal: other (KWESI drain site is clear, drain removed), soft, tender ( RUQ) minimal Musculoskeletal: nl extremities to inspection, nl gait and stance, other (LUE fistula with thrill and older RUE fistula not working with extensive surgical scarring on the RUE) Extremities: normal pulses, No clubbing, No edema, No pitting pedal edema, No tenderness Neurological: PUPPET MAKER II-XII intact, nl mental status, nl speech, nl strength Skin: nl turgor, other (scattered skin tears) Lymph: nl lymph nodes Results Result Diagram: 05/16/1743805/16/17438 Results 24 hrs Laboratory Tests Test 05/16/17 04:39 White Blood Count 11.5 H Red Blood Count 3.09 L Hemoglobin 9.6 L Hematocrit 30.3 L Mean Corpuscular Volume 98.1 Mean Corpuscular Hemoglobin 31.1 Mean Corpuscular Hemoglobin Concent 31.7 L Red Cell Distribution Width 17.4 H Platelet Count 479 H Mean Platelet Volume 11.0 H Neutrophils % 85.3 H Lymphocytes % 4.2 L Monocytes % 9.4 Eosinophils % 0.3 Basophils % 0.3 Nucleated Red Blood Cells % 0.0 Neutrophils # (Manual) 9.8 H Lymphocytes # 0.5 L Monocytes # 1.1 H Eosinophils # 0.0 Basophils # 0.0 Nucleated Red Blood Cells # 0.0 Sodium Level 139 Potassium Level 4.0 Chloride Level 100 Carbon Dioxide Level 28 Anion Gap 15 Blood Urea Nitrogen 30 #H Creatinine 5.80 H Glucose Level 90 Calcium Level 8.7 Medications Medications Current Medications Amlodipine Besylate (Norvasc) 5 mg BID PO Last administered on 05/16/17 08:53; Admin Dose 5 MG; Start 05/06/17 at 09:00 Atorvastatin Calcium (Lipitor) 20 mg QHS PO Last administered on 05/15/17 21:32 ; Admin Dose 20 MG; Start 05/06/17 at 21:00 Carvedilol (Coreg) 25 mg BID PO Last administered on 05/16/17 08:53; Admin Dose 25 MG; Start 05/06/17 at 09:00 Cinacalcet (Sensipar) 60 mg DAILY PO Last administered on 05/16/17 08:53; Admin Dose 60 MG; Start 05/06/17 at 09:00 Diphenhydramine HCl (Benadryl) 50 mg Q12H PRN PO ITCHING Last administered on 05:40; Admin Dose 50 MG; Start 05/06/17 at 00:00 Docusate Sodium (Colace) 100 mg BID PRN PO CONSTIPATION Last administered on 15:56; Admin Dose 100 MG; Start 05/06/17 at 00:00 Folic Acid (Folic Acid) 1 mg DAILY PO Last administered on 05/16/17 08:53; Admin Dose 1 MG; Start 05/06/17 at 09:00 Lanthanum Carbonate (Fosrenol) 500 mg TID PO Last administered on 05/16/17 12: 07; Admin Dose 500 MG; Start 05/06/17 at 09:00 Losartan Potassium (Cozaar) 50 mg BID PO Last administered on 05/16/17 08:52; Admin Dose 50 MG; Start 05/06/17 at 09:00 Pantoprazole (Protonix Tab) 40 mg DAILY@06 PO Last administered on 05/16/17 05: 10; Admin Dose 40 MG; Start 05/06/17 at 06:00 Acetaminophen (Tylenol Tab) 650 mg Q6H PRN PO PAIN LEVEL 1-3 OR FEVER; Start at 00:00 Acetaminophen (Tylenol Supp) 650 mg Q6H PRN [place] PAIN LEVEL 1-3 OR FEVER; Start 05/06/17 at 00:00 Acetaminophen/ Hydrocodone Bitart ([place] (5/325)) 1 tab Q6H PRN PO MODERATE PAIN LEVEL 4-6 Last administered on 05/13/17 09:02; Admin Dose 1 TAB; Start at 00:00 Bisacodyl (Dulcolax) 5 mg DAILY PRN PO CONSTIPATION; Start 05/06/17 at 00:00 Ondansetron HCl 4 mg 4 mg Q4H PRN IV NAUSEA AND/OR VOMITING Last administered on 05/16/17 14:18; Admin Dose 4 MG; Start 05/06/17 at 15:00 Sodium Chloride (NS) 1,000 ml @ 0 mls/hr Q0M PRN IV TO KEEP SBP ABOVE 90; Start 05/06/17 at 17:42 Diphenhydramine HCl (Benadryl) 25 mg QHS PRN IV INSOMNIA Last administered on 21:38; Admin Dose 25 MG; Start 05/08/17 at 12:30 Hydromorphone HCl (Dilaudid) 1 mg Q4H PRN IV SEVERE PAIN LEVEL 7-10 Last administered on 05/16/17 14:14; Admin Dose 1 MG; Start 05/09/17 at 16:00 Oxycodone/ Acetaminophen (Percocet (5/ 325)) 1 tab Q4H PRN PO PAIN Last administered on 05/16/17 07:59; Admin Dose 1 TAB; Start 05/13/17 at 09:30 Hydralazine HCl (Apresoline) 100 mg Q8 PO Last administered on 05/16/17 14:19; Admin Dose 100 MG; Start 05/13/17 at 22:00 Enoxaparin Sodium (Lovenox) 30 mg Q24H SC Last administered on 05/16/17 14:22; Admin Dose 30 MG; Start 05/14/17 at 14:00 Aspirin 81 mg 81 mg DAILY PO Last administered on 05/16/17 08:53; Admin Dose 81 MG; Start 05/14/17 at 13:30 Ampicillin Sodium/ Sulbactam Sodium (Unasyn 3gm/NS (Pmx)) 100 ml @ 100 mls/hr QPM IVPB Last administered on 05/15/17 21:38; Admin Dose 100 MLS/HR; Start 05/15 at 21:00 SALEEM HINTON May 16, 2017 16:05
--- NOTE | 2017-05-16 17:00 | PN ---
Date/Time of Note Date/Time of Note DATE: 05/16/17 TIME: 16:56 Assessment/Plan Lines/Catheters IV Catheter Type (from Nrs): Saline Lock Cerda in Place (from Nrs): No Assessment/Plan Chief Complaint/Hosp Course 1.Acalculous Cholecystitis: s/p lap marvin; abdominal pain improved; however now with SOB and need for supplemental O2 as well as worsening leukocytosis: CT noted with small fluid collection (for IR drain if drainable), pleural and pericardial effusion.; amylase/lipase nl -increase ambulation as tolerated -IS-patient must use -Ice pack to abdominal wall; -pain management -continue abx 2. ESRD with HD -continue medical management 3.Shortness of breath and oxygen desaturation on room air:CT noted with pleural and pericardial effusion -supplemental O2 to maintain O2 sat >92% -as above -medical management 4. Macrocytic anemia: No acute bleed -monitor and transfuse as needed 5. Leukocytosis: trending up -monitor and trend 6. Hypertension: -medical management -continue HD 7. Hypoalbuminemia:Likely nutritional -optimize nutrition 8. Pericardial effusion: -per cardiology Thank you, Problems: Subjective 24 Hr Interval Summary WBC improving. Abdominal pain improved. No noted drainage from any incision sites. Continues to c/o of SOB with activity with need for O2 supplementation. No fevers, chills, acute change in pain, n/v/d/dysuria, cp, palpitations, congested cough. CT with noted fluid collection in gb fossa (will plan for IR drain), pericardial effusion and bilat pleural effusions. Exam/Review of Systems Vital Signs Vitals Vital Signs Date Time Temp Pulse Resp B/P Pulse Ox O2 Delivery O2 Flow Rate FiO2 05/16/17 14:22 98.9 82 18 153/72 93 05/16/17 10:57 Nasal Cannula 3.0 05/13/17 23:26 32 Intake and Output 05/15/17 05/15/17 05/16/17 15:00 23:00 07:00 Intake Total 150 ml 100 ml 1640 ml Output Total 4500 ml Balance 150 ml 100 ml -2860 ml Exam Free Text/Dictation Constitutional: alert, oriented Psych: anxious Head: atraumatic, normocephalic Eyes: nl lids, nl sclera ENMT: No mucosa pink and moist (dry) Neck: non-tender, supple Respiratory: diminished, crackles BLL; supplemental O2No congested cough Cardiovascular: regular rate and rhythmNo edema Gastrointestinal: bowel sounds, soft, radha-incision tenderness improved, No drainage from any incision sitesNo distended Genitourinary - Female: nl external genitalia Musculoskeletal: nl gait and stance, No muscle weakness Extremities: normal pulses, TANIA: fistula +thrill/bruitNo edema Neurological: nl mental status, nl speech, nl strength Skin: No rash or lesions, dry Lymph: No nl lymph nodes Results Result Diagram: 05/16/17 0439 05/16/17 0439 ARABELLA WEATHERS MD May 16, 2017 17:00
[2017-05-16 21:00] VITALS: BP 140/70; RESP 18
[2017-05-16] MEDS: ATORVASTATIN 20 MG TAB PO SCH (21:07)
[2017-05-16] MEDS: AMPICILLIN/SULB 3 GM/NS (PMX) 100 ML IVPB SCH (21:07)
[2017-05-17] VITALS (14 sets, daily range): BP systolic 122–152; BP diastolic 62–78; PULSE 76–88; RESP 18–20
[2017-05-17] MEDS: HYDROmorphONE 1 MG/ML SYG IV PRN ×5 (02:20→20:05)
[2017-05-17] MEDS: PANTOPRAZOLE (EC) 40 MG TAB PO SCH (05:23)
--- NOTE | 2017-05-17 07:19 | CONS ---
Date/Time of Note Date/Time of Note DATE: 05/17/17 TIME: 07:05 Assessment/Plan Assessment/Plan Chief Complaint/Hosp Course 1) Acute acalculous cholecystitis s/p laparoscopic cholecystectomy on 05/11 and liver wedge biopsy for hepatomegaly now with post-surgical fluid collection in the GB fossa associated with transient bump in WBC and worsening symptomatic pleuritic CP and SOB. The fluid collection on the CT does not appear to be well organized at this time to suggest an abscess and I agree with no drainage at this time. However, it is very likely infected as the GB was removed infected and there would have been some leaking of infected bile ducts at the time of the surgery. The most likely organisms are Enterococcus, E coli, Klebsiella, Streptococci and potentially yeast. Blood cultures have been unrevealing which is expected. Doing better overnight, with continued improvement in the WBC. No positive cultures. 05/17 - despite CXR with air bronchograms, pt does not exhibit overt signs of pneumonia overall improved, continue with unasyn, to get dialysis today if fevers or WBC an issue will need to broaden coverage for possible HCAP will check nasal for MRSA repeat CXR is pending 2. ESRD on HD via LUE fistula, 3x weekly with probable mild chronic volume overload exacerbated by the surgery and acute infection/inflammatory state of the gallbladder manifest as increased bilateral pleural effusions with compressive atelectasis and pericardial effusion. Improved respiratory status after 3.5L of fluid removed with HD today. 05/17 - pt to get dialysis today and repeat CXR 3. History of lupus, per patient has been quiescent for some time 4. CAD with prior history and elevated troponins on admission, per Dr. Spencer. 5. bilateral infiltrate/effusion (L>R) air bronchograms are noted 05/17 - pt to get repeat CXR this a.m. pt seems to be improved on unasyn but if fever and WBC becomes an issue may need to broaden coverage for possible HCAP Problems: Consultation Date/Type/Reason Admit Date/Time May 05, 2017 at 18:31 Initial Consult Date 05/15/17 Type of Consultation: Infectious Diseases Referring Provider: REMI SIMPSON MD 24 HR Interval Summary Free Text/Dictation pt states breathing only an issue when she walks but that HD helps no phlegm production no diarrhea, last BM was 2 days ago no urine produced abd pain is better only present if she moves no V Exam/Review of Systems Vital Signs Vitals Vital Signs Date Time Temp Pulse Resp B/P Pulse Ox O2 Delivery O2 Flow Rate FiO2 05/17/17 03:18 98.5 88 18 129/71 90 05/17/17 00:54 3.0 05/16/17 20:00 Nasal Cannula 05/13/17 23:26 32 Intake and Output 05/16/17 05/16/17 05/17/17 15:00 23:00 07:00 Intake Total 780 ml 720 ml Balance 780 ml 720 ml Exam Constitutional: alert, oriented Head: normocephalic ENMT: mucosa pink and moist Respiratory: other (decreased BS at L base) Cardiovascular: regular rate and rhythm Gastrointestinal: soft (BS oresebt) Extremities: other (no edema) Results Result Diagram: 05/16/17 0439 05/16/179 Medications Medications Current Medications Amlodipine Besylate (Norvasc) 5 mg BID PO Last administered on 05/16/17 21:08; Admin Dose 5 MG; Start 05/06/17 at 09:00 Atorvastatin Calcium (Lipitor) 20 mg QHS PO Last administered on 05/16/17 21:07 ; Admin Dose 20 MG; Start 05/06/17 at 21:00 Carvedilol (Coreg) 25 mg BID PO Last administered on 05/16/17 21:07; Admin Dose 25 MG; Start 05/06/17 at 09:00 Cinacalcet (Sensipar) 60 mg DAILY PO Last administered on 05/16/17 08:53; Admin Dose 60 MG; Start 05/06/17 at 09:00 Diphenhydramine HCl (Benadryl) 50 mg Q12H PRN PO ITCHING Last administered on 05:40; Admin Dose 50 MG; Start 05/06/17 at 00:00 Docusate Sodium (Colace) 100 mg BID PRN PO CONSTIPATION Last administered on 15:56; Admin Dose 100 MG; Start 05/06/17 at 00:00 Folic Acid (Folic Acid) 1 mg DAILY PO Last administered on 05/16/17 08:53; Admin Dose 1 MG; Start 05/06/17 at 09:00 Lanthanum Carbonate (Fosrenol) 500 mg TID PO Last administered on 05/16/17 12: 07; Admin Dose 500 MG; Start 05/06/17 at 09:00 Losartan Potassium (Cozaar) 50 mg BID PO Last administered on 05/16/17 21:07; Admin Dose 50 MG; Start 05/06/17 at 09:00 Pantoprazole (Protonix Tab) 40 mg DAILY@06 PO Last administered on 05/17/17 05: 23; Admin Dose 40 MG; Start 05/06/17 at 06:00 Acetaminophen (Tylenol Tab) 650 mg Q6H PRN PO PAIN LEVEL 1-3 OR FEVER; Start at 00:00 Acetaminophen (Tylenol Supp) 650 mg Q6H PRN [place] PAIN LEVEL 1-3 OR FEVER; Start 05/06/17 at 00:00 Acetaminophen/ Hydrocodone Bitart ([place] (5/325)) 1 tab Q6H PRN PO MODERATE PAIN LEVEL 4-6 Last administered on 05/13/17 09:02; Admin Dose 1 TAB; Start at 00:00 Bisacodyl (Dulcolax) 5 mg DAILY PRN PO CONSTIPATION; Start 05/06/17 at 00:00 Ondansetron HCl 4 mg 4 mg Q4H PRN IV NAUSEA AND/OR VOMITING Last administered on 05/16/17 14:18; Admin Dose 4 MG; Start 05/06/17 at 15:00 Sodium Chloride (NS) 1,000 ml @ 0 mls/hr Q0M PRN IV TO KEEP SBP ABOVE 90; Start 05/06/17 at 17:42 Diphenhydramine HCl (Benadryl) 25 mg QHS PRN IV INSOMNIA Last administered on 21:38; Admin Dose 25 MG; Start 05/08/17 at 12:30 Hydromorphone HCl (Dilaudid) 1 mg Q4H PRN IV SEVERE PAIN LEVEL 7-10 Last administered on 05/17/17 06:38; Admin Dose 1 MG; Start 05/09/17 at 16:00 Oxycodone/ Acetaminophen (Percocet (5/ 325)) 1 tab Q4H PRN PO PAIN Last administered on 05/16/17 07:59; Admin Dose 1 TAB; Start 05/13/17 at 09:30 Hydralazine HCl (Apresoline) 100 mg Q8 PO Last administered on 05/17/17 05:24; Admin Dose 100 MG; Start 05/13/17 at 22:00 Enoxaparin Sodium (Lovenox) 30 mg Q24H SC Last administered on 05/16/17 14:22; Admin Dose 30 MG; Start 05/14/17 at 14:00 Aspirin 81 mg 81 mg DAILY PO Last administered on 05/16/17 08:53; Admin Dose 81 MG; Start 05/14/17 at 13:30 Ampicillin Sodium/ Sulbactam Sodium (Unasyn 3gm/NS (Pmx)) 100 ml @ 100 mls/hr QPM IVPB Last administered on 05/16/17 21:07; Admin Dose 100 MLS/HR; Start 05/15 at 21:00 SIA CALDERÓN MD May 17, 2017 07:15
[2017-05-17 08:30] LABS: BASOPHIL # 0.1 10^3/ul (0.0-0.1); BASOPHILS % 0.4 % (0.0-2.0); EOSINOPHILS # 0.1 10^3/ul (0.0-0.5); EOSINOPHILS % 0.6 % (0.0-7.0); HEMATOCRIT 31.5 % (37.0-47.0); HEMOGLOBIN 9.9 g/dl (12.0-16.0); LYMPHOCYTES % 8.8 % (15.0-51.0); MEAN CORPUSCULAR HEMOGLOBIN 31.8 pg (29.0-33.0); MEAN CORPUSCULAR HGB CONC 31.4 g/dl (32.0-37.0); MEAN CORPUSCULAR VOLUME 101.3 fl (82.0-101.0); MEAN PLATELET VOLUME 11.3 fl (7.4-10.4); MONOCYTE # 1.4 10^3/ul (0.3-0.9); NEUTROPHILS % 77.5 % (39.0-77.0); PLATELET COUNT 476 10^3/UL (140-415); RED BLOOD COUNT 3.11 10^6/ul (4.20-5.40); RED CELL DISTRIBUTION WIDTH 17.5 % (11.5-14.5); WHITE BLOOD COUNT 11.6 10^3/ul (4.8-10.8)
[2017-05-17] MEDS: AMLODIPINE 5 MG TAB PO SCH ×2 (08:46→20:06)
--- NOTE | 2017-05-17 08:49 | PN ---
Date/Time of Note Date/Time of Note DATE: 05/17/17 TIME: 08:45 Assessment/Plan VTE Prophylaxis VTE Prophylaxis Intervention: LMWH Lines/Catheters IV Catheter Type (from Nrsg): Saline Lock Urinary Cath still in place: No Assessment/Plan Chief Complaint/Hosp Course Gen: Awake,alert Neck:supple Lungs:Rhonchi b/l CVS: Regular rate and rthym Abdomen: soft, non tender Ext :no edema +LUE fistula +bruit+ thrill A/P 47 y/o 1. Acalculous cholecystitis s/p ,Lap marvin with some fluid collection 2 Pneumonia on iv unasyn 3 Hyperkalemia on HD s/p HD 4 ESRD on HD M/W/F 5 Elevated Troponin? ACS however in ESRD +elevated trop however nuclear stress test negative 6 HTN controlled 7Cardiomyopathy 8 Drug abuse 9Hyperphos On Lanthanum/ Renagel/ Plan - CT guided drainage tmw - Repeat Chest Xray today after HD today - Nebs - c/w unasyn, appreciate I.D - HD today - c/w ASA/ B shon/ ARB/ Amlodipine - GI prophylaxsis/DVT prophylaxsis - ABG with hypoxia> home oxygen - pain control with percocet and dilaudid Problems: Subjective 24 Hr Interval Summary Free Text/Dictation Abdominal pain has improved Still sob, Chest Xray pending Exam/Review of Systems Vital Signs Vitals Vital Signs Date Time Temp Pulse Resp B/P Pulse Ox O2 Delivery O2 Flow Rate FiO2 05/17/17 07:58 98.1 88 20 149/70 92 05/17/17 00:54 3.0 05/16/17 20:00 Nasal Cannula 05/13/17 23:26 32 Intake and Output 05/16/17 05/16/17 05/17/17 15:00 23:00 07:00 Intake Total 780 ml 720 ml Balance 780 ml 720 ml Results Result Diagram: 05/17/17 0812 05/16/17 0439 Results 24 hrs Laboratory Tests Test 05/17/17 08:12 White Blood Count 11.6 H Red Blood Count 3.11 L Hemoglobin 9.9 L Hematocrit 31.5 L Mean Corpuscular Volume 101.3 H Mean Corpuscular Hemoglobin 31.8 Mean Corpuscular Hemoglobin Concent 31.4 L Red Cell Distribution Width 17.5 H Platelet Count 476 H Mean Platelet Volume 11.3 H Neutrophils % 77.5 H Lymphocytes % 8.8 L Monocytes % 12.0 H Eosinophils % 0.6 Basophils % 0.4 Nucleated Red Blood Cells % 0.0 Neutrophils # (Manual) 8.9 H Lymphocytes # 1.0 Monocytes # 1.4 H Eosinophils # 0.1 Basophils # 0.1 Nucleated Red Blood Cells # 0.0 Medications Medications Current Medications Amlodipine Besylate (Norvasc) 5 mg BID PO Last administered on 05/16/17 21:08; Admin Dose 5 MG; Start 05/06/17 at 09:00 Atorvastatin Calcium (Lipitor) 20 mg QHS PO Last administered on 05/16/17 21:07 ; Admin Dose 20 MG; Start 05/06/17 at 21:00 Carvedilol (Coreg) 25 mg BID PO Last administered on 05/16/17 21:07; Admin Dose 25 MG; Start 05/06/17 at 09:00 Cinacalcet (Sensipar) 60 mg DAILY PO Last administered on 05/16/17 08:53; Admin Dose 60 MG; Start 05/06/17 at 09:00 Diphenhydramine HCl (Benadryl) 50 mg Q12H PRN PO ITCHING Last administered on 05:40; Admin Dose 50 MG; Start 05/06/17 at 00:00 Docusate Sodium (Colace) 100 mg BID PRN PO CONSTIPATION Last administered on 15:56; Admin Dose 100 MG; Start 05/06/17 at 00:00 Folic Acid (Folic Acid) 1 mg DAILY PO Last administered on 05/16/17 08:53; Admin Dose 1 MG; Start 05/06/17 at 09:00 Lanthanum Carbonate (Fosrenol) 500 mg TID PO Last administered on 05/16/17 12: 07; Admin Dose 500 MG; Start 05/06/17 at 09:00 Losartan Potassium (Cozaar) 50 mg BID PO Last administered on 05/16/17 21:07; Admin Dose 50 MG; Start 05/06/17 at 09:00 Pantoprazole (Protonix Tab) 40 mg DAILY@06 PO Last administered on 05/17/17 05: 23; Admin Dose 40 MG; Start 05/06/17 at 06:00 Acetaminophen (Tylenol Tab) 650 mg Q6H PRN PO PAIN LEVEL 1-3 OR FEVER; Start at 00:00 Acetaminophen (Tylenol Supp) 650 mg Q6H PRN [place] PAIN LEVEL 1-3 OR FEVER; Start 05/06/17 at 00:00 Acetaminophen/ Hydrocodone Bitart ([place] (5/325)) 1 tab Q6H PRN PO MODERATE PAIN LEVEL 4-6 Last administered on 05/13/17 09:02; Admin Dose 1 TAB; Start at 00:00 Bisacodyl (Dulcolax) 5 mg DAILY PRN PO CONSTIPATION; Start 05/06/17 at 00:00 Ondansetron HCl 4 mg 4 mg Q4H PRN IV NAUSEA AND/OR VOMITING Last administered on 05/16/17 14:18; Admin Dose 4 MG; Start 05/06/17 at 15:00 Sodium Chloride (NS) 1,000 ml @ 0 mls/hr Q0M PRN IV TO KEEP SBP ABOVE 90; Start 05/06/17 at 17:42 Diphenhydramine HCl (Benadryl) 25 mg QHS PRN IV INSOMNIA Last administered on 21:38; Admin Dose 25 MG; Start 05/08/17 at 12:30 Hydromorphone HCl (Dilaudid) 1 mg Q4H PRN IV SEVERE PAIN LEVEL 7-10 Last administered on 05/17/17 06:38; Admin Dose 1 MG; Start 05/09/17 at 16:00 Oxycodone/ Acetaminophen (Percocet (5/ 325)) 1 tab Q4H PRN PO PAIN Last administered on 05/16/17 07:59; Admin Dose 1 TAB; Start 05/13/17 at 09:30 Hydralazine HCl (Apresoline) 100 mg Q8 PO Last administered on 05/17/17 05:24; Admin Dose 100 MG; Start 05/13/17 at 22:00 Enoxaparin Sodium (Lovenox) 30 mg Q24H SC Last administered on 05/16/17 14:22; Admin Dose 30 MG; Start 05/14/17 at 14:00 Aspirin 81 mg 81 mg DAILY PO Last administered on 05/16/17 08:53; Admin Dose 81 MG; Start 05/14/17 at 13:30 Ampicillin Sodium/ Sulbactam Sodium (Unasyn 3gm/NS (Pmx)) 100 ml @ 100 mls/hr QPM IVPB Last administered on 05/16/17t 21:07; Admin Dose 100 MLS/HR; Start 05/15 at 21:00 KHANG WATSON MD May 17, 2017 08:49
[2017-05-17] MEDS: LOSARTAN 50 MG TAB PO SCH ×2 (08:55→20:06)
[2017-05-17] MEDS: LANTHANUM 500 MG CHEW PO SCH ×3 (08:56→20:06)
[2017-05-17] MEDS: ASPIRIN (EC) 81 MG TAB PO SCH (08:56)
[2017-05-17] MEDS: CINACALCET 30 MG TAB PO SCH (08:56)
[2017-05-17] MEDS: SEVELAMER CARBONATE 0.8 GM PKT PO SCH ×3 (08:56→17:32)
[2017-05-17] MEDS: FOLIC ACID 1 MG TAB PO SCH (08:56)
[2017-05-17] MEDS ORDERED: DIPHENHYDRAMINE 50 MG INJ IV ONE (09:00)
[2017-05-17] MEDS: ONDANSETRON 4 MG INJ IV PRN ×2 (10:43→18:07)
[2017-05-17] MEDS: IPRATROPIUM (NEB) 0.5 MG/2.5 ML AMP HHN SCH ×2 (14:38→20:38)
[2017-05-17] MEDS: ALBUTEROL 0.083% (NEB) 2.5 MG/3 ML AMP HHN SCH ×2 (14:38→20:38)
--- NOTE | 2017-05-17 14:58 | RADRPT ---
PROCEDURE: Chest 2 views. CLINICAL INDICATION: Shortness of breath. TECHNIQUE: PA and lateral views of the chest were obtained. COMPARISON: May 15, 2017 FINDINGS: The heart is large. Central pulmonary vascular congestion and interstitial prominence is unchanged. Left lower lobe consolidation, possibly combined small to moderate pleural effusion is stable. Rig ht lower lung infiltrates and small right pleural effusion are stable. Right-sided defibrillator has its lead over the heart and is unchanged. Osseous structures are intact. IMPRESSION: Cardiomegaly. Stable central pulmonary vascular congestion and mild interstitial prominence in both lungs. Stable left lower lobe consolidation, combined with small to moderate pleural effusion. Stable right lower lung infiltrates and small right pleural effusion. RPTAT: AA .Bryan Montes De Oca MD, MD Date Time Electronically viewed and signed by .Bryan Montes De Oca MD, on 05/17/2017 14:58 .P/
[2017-05-17] MEDS: ENOXAPARIN 30 MG/0.3 ML SYG SC SCH (15:49)
--- NOTE | 2017-05-17 16:04 | PN ---
Date/Time of Note Date/Time of Note DATE: 05/17/17 TIME: 16:02 Assessment/Plan Lines/Catheters IV Catheter Type (from Nrs): Saline Lock Cerda in Place (from Nrs): No Assessment/Plan Chief Complaint/Hosp Course 1.Acalculous Cholecystitis: s/p lap marvin; abdominal pain improved; however now with SOB and need for supplemental O2 as well as worsening leukocytosis: CT noted with small fluid collection (for IR drain if drainable), pleural and pericardial effusion.; amylase/lipase nl -increase ambulation as tolerated -IS-patient must use -Ice pack to abdominal wall; -pain management -abx per id 2. ESRD with HD -continue medical management 3.Shortness of breath and oxygen desaturation on room air:CT noted with pleural and pericardial effusion. Improving -supplemental O2 to maintain O2 sat >92% -as above -medical management 4. Macrocytic anemia: No acute bleed -monitor and transfuse as needed 5. Leukocytosis: trending down -monitor and trend 6. Hypertension: -medical management -continue HD 7. Hypoalbuminemia:Likely nutritional -optimize nutrition 8. Pericardial effusion: -per cardiology Thank you, Problems: Subjective 24 Hr Interval Summary No organized collection in gb fossa per radiology and therefore no value in IR drainage. Abdominal pain improved. No noted drainage from any incision sites. SOB improved. No fevers, chills, acute change in pain, n/v/d/dysuria, cp, palpitations, congested cough. Exam/Review of Systems Vital Signs Vitals Vital Signs Date Time Temp Pulse Resp B/P Pulse Ox O2 Delivery O2 Flow Rate FiO2 05/17/17 14:39 94 20 91 Nasal Cannula 3.0 05/17/17 07:58 98.1 149/70 05/13/17 23:26 32 Intake and Output 05/16/17 05/16/17 05/17/17 15:00 23:00 07:00 Intake Total 780 ml 720 ml Balance 780 ml 720 ml Exam Free Text/Dictation Constitutional: alert, oriented Psych: anxious Head: atraumatic, normocephalic Eyes: nl lids, nl sclera ENMT: No mucosa pink and moist (dry) Neck: non-tender, supple Respiratory: diminished, crackles BLL; supplemental O2No congested cough Cardiovascular: regular rate and rhythmNo edema Gastrointestinal: bowel sounds, soft, radha-incision tenderness improved, No drainage from any incision sites. No distended Genitourinary - Female: nl external genitalia Musculoskeletal: nl gait and stance, No muscle weakness Extremities: normal pulses, TANIA: fistula +thrill/bruitNo edema Neurological: nl mental status, nl speech, nl strength Skin: No rash or lesions, dry Lymph: No nl lymph nodes Results Result Diagram: 05/17/17 0812 05/16/17 0439 ARABELLA WEATHERS MD May 17, 2017 16:04
[2017-05-17] MEDS: OXYCODONE/ACETAMINOPHEN (5/325) TAB PO PRN (18:11)
[2017-05-17] MEDS: ATORVASTATIN 20 MG TAB PO SCH (20:06)
[2017-05-17] MEDS: DOCUSATE SODIUM 100 MG CAP PO PRN (20:06)
[2017-05-17] MEDS: AMPICILLIN/SULB 3 GM/NS (PMX) 100 ML IVPB SCH (20:16)
[2017-05-17] MEDS: DIPHENHYDRAMINE 50 MG CAP PO PRN (21:14)
[2017-05-17] MEDS: DIPHENHYDRAMINE 50 MG INJ IV PRN (21:19)
[2017-05-18] MEDS: ALBUTEROL 0.083% (NEB) 2.5 MG/3 ML AMP HHN SCH ×4 (02:04→19:49)
[2017-05-18] MEDS: IPRATROPIUM (NEB) 0.5 MG/2.5 ML AMP HHN SCH ×4 (02:04→19:49)
[2017-05-18] MEDS: ONDANSETRON 4 MG INJ IV PRN ×3 (02:13→18:12)
[2017-05-18] MEDS: HYDROmorphONE 1 MG/ML SYG IV PRN ×6 (02:13→23:39)
[2017-05-18 02:42] VITALS: BP 147/68; RESP 18
[2017-05-18 05:31] LABS: BASOPHILS % 0.4 % (0.0-2.0); EOSINOPHILS % 0.4 % (0.0-7.0); HEMATOCRIT 29.1 % (37.0-47.0); HEMOGLOBIN 9.1 g/dl (12.0-16.0); LYMPHOCYTES # 0.8 10^3/ul (0.8-2.9); LYMPHOCYTES % 6.8 % (15.0-51.0); MEAN CORPUSCULAR HEMOGLOBIN 30.8 pg (29.0-33.0); MEAN CORPUSCULAR HGB CONC 31.3 g/dl (32.0-37.0); MEAN CORPUSCULAR VOLUME 98.6 fl (82.0-101.0); MONOCYTE # 1.5 10^3/ul (0.3-0.9); MONOCYTES % 12.9 % (0.0-11.0); PLATELET COUNT 456 10^3/UL (140-415); RED BLOOD COUNT 2.95 10^6/ul (4.20-5.40); WHITE BLOOD COUNT 11.3 10^3/ul (4.8-10.8)
[2017-05-18 05:51] LABS: ALBUMIN 3.1 g/dl (3.3-4.9); ALBUMIN/GLOBULIN RATIO 0.68; CALCIUM 8.5 mg/dl (8.4-10.2); CREATININE 6.25 mg/dl (0.44-1.00); POTASSIUM 3.6 mmol/L (3.5-5.1); TOTAL PROTEIN 7.6 g/dl (6.1-8.1)
[2017-05-18] MEDS: PANTOPRAZOLE (EC) 40 MG TAB PO SCH (06:13)
--- NOTE | 2017-05-18 06:33 | CONS ---
Date/Time of Note Date/Time of Note DATE: 05/18/17 TIME: 06:26 Assessment/Plan Assessment/Plan Chief Complaint/Hosp Course 1) Acute acalculous cholecystitis s/p laparoscopic cholecystectomy on 05/11 and liver wedge biopsy for hepatomegaly now with post-surgical fluid collection in the GB fossa associated with transient bump in WBC and worsening symptomatic pleuritic CP and SOB. The fluid collection on the CT does not appear to be well organized at this time to suggest an abscess and I agree with no drainage at this time. However, it is very likely infected as the GB was removed infected and there would have been some leaking of infected bile ducts at the time of the surgery. The most likely organisms are Enterococcus, E coli, Klebsiella, Streptococci and potentially yeast. Blood cultures have been unrevealing which is expected. Doing better overnight, with continued improvement in the WBC. No positive cultures. 05/17 - despite CXR with air bronchograms, pt does not exhibit overt signs of pneumonia overall improved, continue with unasyn, to get dialysis today if fevers or WBC an issue will need to broaden coverage for possible HCAP will check nasal for MRSA repeat CXR is pending 05/18 - low grade temp but no chills or sweats CXR has less signs of fluid overload wbc is slowly decreasing doubt aspiration of abd fluid is needed 2. ESRD on HD via LUE fistula, 3x weekly with probable mild chronic volume overload exacerbated by the surgery and acute infection/inflammatory state of the gallbladder manifest as increased bilateral pleural effusions with compressive atelectasis and pericardial effusion. Improved respiratory status after 3.5L of fluid removed with HD today. 05/17 - pt to get dialysis today and repeat CXR 3. History of lupus, per patient has been quiescent for some time 4. CAD with prior history and elevated troponins on admission, per Dr. Spencer. 5. bilateral infiltrate/effusion (L>R) air bronchograms are noted 05/17 - pt to get repeat CXR this a.m. pt seems to be improved on unasyn but if fever and WBC becomes an issue may need to broaden coverage for possible HCAP 05/18 - WBC continues to slowly improving and pt feeling better, no cough CXR shows less fluid overload Problems: Consultation Date/Type/Reason Admit Date/Time May 05, 2017 at 18:31 Initial Consult Date 05/15/17 Type of Consultation: Infectious Diseases Referring Provider: REMI SIMPSON MD 24 HR Interval Summary Free Text/Dictation pt states she is feeling better less abd pain, able to move around the bed without pain no N, V no BM in 2 days Exam/Review of Systems Vital Signs Vitals Vital Signs Date Time Temp Pulse Resp B/P Pulse Ox O2 Delivery O2 Flow Rate FiO2 05/18/17 02:42 98.9 87 18 147/68 93 05/18/17 01:54 Nasal Cannula 4.0 Intake and Output 05/17/17 05/17/17 05/18/17 15:00 23:00 07:00 Intake Total 400 ml 1060 ml Output Total 3600 ml Balance -3200 ml 1060 ml Exam Constitutional: alert, oriented Eyes: nl sclera ENMT: mucosa pink and moist Respiratory: other (decreased BS at bases with soft rales just above it) Cardiovascular: regular rate and rhythm Gastrointestinal: soft Results Result Diagram: 05/18/17 0430 05/18/17 0430 Results 24 hrs Laboratory Tests Test 05/17/17 08:12 05/18/17 04:30 White Blood Count 11.6 H 11.3 H Red Blood Count 3.11 L 2.95 L Hemoglobin 9.9 L 9.1 L Hematocrit 31.5 L 29.1 L Mean Corpuscular Volume 101.3 H 98.6 Mean Corpuscular Hemoglobin 31.8 30.8 Mean Corpuscular Hemoglobin Concent 31.4 L 31.3 L Red Cell Distribution Width 17.5 H 17.0 H Platelet Count 476 H 456 H Mean Platelet Volume 11.3 H 11.0 H Neutrophils % 77.5 H 79.0 H Lymphocytes % 8.8 L 6.8 L Monocytes % 12.0 H 12.9 H Eosinophils % 0.6 0.4 Basophils % 0.4 0.4 Nucleated Red Blood Cells % 0.0 0.0 Neutrophils # (Manual) 8.9 H 8.9 H Lymphocytes # 1.0 0.8 Monocytes # 1.4 H 1.5 H Eosinophils # 0.1 0.0 Basophils # 0.1 0.0 Nucleated Red Blood Cells # 0.0 0.0 Sodium Level 135 Potassium Level 3.6 Chloride Level 94 L Carbon Dioxide Level 29 Anion Gap 16 Blood Urea Nitrogen 31 H Creatinine 6.25 H Glucose Level 103 Calcium Level 8.5 Total Bilirubin 0.0 L Direct Bilirubin 0.00 Indirect Bilirubin 0.0 Aspartate Amino Transf (AST/SGOT) 22 Alanine Aminotransferase (ALT/SGPT) 12 L Alkaline Phosphatase 431 H Total Protein 7.6 Albumin 3.1 L Globulin 4.50 H Albumin/Globulin Ratio 0.68 Medications Medications Current Medications Amlodipine Besylate (Norvasc) 5 mg BID PO Last administered on 05/17/17 20:06; Admin Dose 5 MG; Start 05/06/17 at 09:00 Atorvastatin Calcium (Lipitor) 20 mg QHS PO Last administered on 05/17/17 20:06 ; Admin Dose 20 MG; Start 05/06/17 at 21:00 Carvedilol (Coreg) 25 mg BID PO Last administered on 05/17/17 20:06; Admin Dose 25 MG; Start 05/06/17 at 09:00 Cinacalcet (Sensipar) 60 mg DAILY PO Last administered on 05/17/17 08:56; Admin Dose 60 MG; Start 05/06/17 at 09:00 Diphenhydramine HCl (Benadryl) 50 mg Q12H PRN PO ITCHING Last administered on 05:40; Admin Dose 50 MG; Start 05/06/17 at 00:00 Docusate Sodium (Colace) 100 mg BID PRN PO CONSTIPATION Last administered on 20:06; Admin Dose 100 MG; Start 05/06/17 at 00:00 Folic Acid (Folic Acid) 1 mg DAILY PO Last administered on 05/17/17 08:56; Admin Dose 1 MG; Start 05/06/17 at 09:00 Lanthanum Carbonate (Fosrenol) 500 mg TID PO Last administered on 05/17/17 20: 06; Admin Dose 500 MG; Start 05/06/17 at 09:00 Losartan Potassium (Cozaar) 50 mg BID PO Last administered on 05/17/17 20:06; Admin Dose 50 MG; Start 05/06/17 at 09:00 Pantoprazole (Protonix Tab) 40 mg DAILY@06 PO Last administered on 05/18/17 06: 13; Admin Dose 40 MG; Start 05/06/17 at 06:00 Acetaminophen (Tylenol Tab) 650 mg Q6H PRN PO PAIN LEVEL 1-3 OR FEVER; Start at 00:00 Acetaminophen (Tylenol Supp) 650 mg Q6H PRN [place] PAIN LEVEL 1-3 OR FEVER; Start 05/06/17 at 00:00 Acetaminophen/ Hydrocodone Bitart ([place] (5/325)) 1 tab Q6H PRN PO MODERATE PAIN LEVEL 4-6 Last administered on 05/13/17 09:02; Admin Dose 1 TAB; Start at 00:00 Bisacodyl (Dulcolax) 5 mg DAILY PRN PO CONSTIPATION; Start 05/06/17 at 00:00 Ondansetron HCl 4 mg 4 mg Q4H PRN IV NAUSEA AND/OR VOMITING Last administered on 05/18/17 02:13; Admin Dose 4 MG; Start 05/06/17 at 15:00 Sodium Chloride (NS) 1,000 ml @ 0 mls/hr Q0M PRN IV TO KEEP SBP ABOVE 90; Start 05/06/17 at 17:42 Diphenhydramine HCl (Benadryl) 25 mg QHS PRN IV INSOMNIA Last administered on 21:19; Admin Dose 25 MG; Start 05/08/17 at 12:30 Hydromorphone HCl (Dilaudid) 1 mg Q4H PRN IV SEVERE PAIN LEVEL 7-10 Last administered on 05/18/17 06:15; Admin Dose 1 MG; Start 05/09/17 at 16:00 Oxycodone/ Acetaminophen (Percocet (5/ 325)) 1 tab Q4H PRN PO PAIN Last administered on 05/17/17 18:11; Admin Dose 1 TAB; Start 05/13/17 at 09:30 Hydralazine HCl (Apresoline) 100 mg Q8 PO Last administered on 05/18/17 06:17; Admin Dose 100 MG; Start 05/13/17 at 22:00 Enoxaparin Sodium (Lovenox) 30 mg Q24H SC Last administered on 05/17/17 15:49; Admin Dose 30 MG; Start 05/14/17 at 14:00 Aspirin 81 mg 81 mg DAILY PO Last administered on 05/17/17 08:56; Admin Dose 81 MG; Start 05/14/17 at 13:30 Ampicillin Sodium/ Sulbactam Sodium (Unasyn 3gm/NS (Pmx)) 100 ml @ 100 mls/hr QPM IVPB Last administered on 05/17/17t 20:16; Admin Dose 100 MLS/HR; Start 05/15 at 21:00 SIA CALDERÓN MD May 18, 2017 06:33
[2017-05-18 08:28] VITALS: BP 149/65; RESP 20
[2017-05-18] MEDS: SEVELAMER CARBONATE 0.8 GM PKT PO SCH ×3 (10:27→17:35)
[2017-05-18] MEDS: AMLODIPINE 5 MG TAB PO SCH ×2 (10:28→20:26)
[2017-05-18] MEDS: LOSARTAN 50 MG TAB PO SCH ×2 (10:28→20:25)
[2017-05-18] MEDS: CINACALCET 30 MG TAB PO SCH (10:33)
[2017-05-18] MEDS: FOLIC ACID 1 MG TAB PO SCH (10:33)
[2017-05-18] MEDS: ASPIRIN (EC) 81 MG TAB PO SCH (10:34)
[2017-05-18] MEDS: LANTHANUM 500 MG CHEW PO SCH ×3 (10:34→20:25)
[2017-05-18] MEDS: OXYCODONE/ACETAMINOPHEN (5/325) TAB PO PRN (11:29)
--- NOTE | 2017-05-18 12:41 | PN ---
Date/Time of Note Date/Time of Note DATE: 05/18/17 TIME: 12:40 Assessment/Plan Lines/Catheters IV Catheter Type (from Nrs): Saline Lock Cerda in Place (from Nrs): No Assessment/Plan Chief Complaint/Hosp Course 1.Acalculous Cholecystitis: s/p lap marvin; abdominal pain improved; however now with SOB and need for supplemental O2 as well as worsening leukocytosis: CT noted with small fluid collection (for IR drain if drainable), pleural and pericardial effusion.; amylase/lipase nl -increase ambulation as tolerated -IS-patient must use -Ice pack to abdominal wall; -pain management -abx per id 2. ESRD with HD -continue medical management 3.Shortness of breath and oxygen desaturation on room air:CT noted with pleural and pericardial effusion. Improving -supplemental O2 to maintain O2 sat >92% -as above -medical management 4. Macrocytic anemia: No acute bleed -monitor and transfuse as needed 5. Leukocytosis: trending down -monitor and trend 6. Hypertension: -medical management -continue HD 7. Hypoalbuminemia:Likely nutritional -optimize nutrition 8. Pericardial effusion: -per cardiology Thank you, Problems: Subjective 24 Hr Interval Summary No organized collection in gb fossa per radiology and therefore no value in IR drainage. No abdominal pain. No noted drainage from any incision sites. SOB improved. No fevers, chills, acute change in pain, n/v/d/dysuria, cp, palpitations, congested cough. Exam/Review of Systems Vital Signs Vitals Vital Signs Date Time Temp Pulse Resp B/P Pulse Ox O2 Delivery O2 Flow Rate FiO2 05/18/17 08:28 99.2 97 20 149/65 92 05/18/17 07:29 4.0 05/18/17 07:29 Nasal Cannula Intake and Output 05/17/17 05/17/17 05/18/17 14:59 22:59 06:59 Intake Total 400 ml 1060 ml 360 ml Output Total 3600 ml Balance -3200 ml 1060 ml 360 ml Exam Free Text/Dictation Constitutional: alert, oriented Psych: anxious Head: atraumatic, normocephalic Eyes: nl lids, nl sclera ENMT: No mucosa pink and moist (dry) Neck: non-tender, supple Respiratory: diminished, crackles BLL; supplemental O2No congested cough Cardiovascular: regular rate and rhythmNo edema Gastrointestinal: bowel sounds, soft, radha-incision tenderness improved, No drainage from any incision sites. No distended Genitourinary - Female: nl external genitalia Musculoskeletal: nl gait and stance, No muscle weakness Extremities: normal pulses, TANIA: fistula +thrill/bruitNo edema Neurological: nl mental status, nl speech, nl strength Skin: No rash or lesions, dry Lymph: No nl lymph nodes Results Result Diagram: 05/18/170 05/18/17 0430 ARABELLA WEATHERS MD May 18, 2017 12:41
[2017-05-18 14:02] VITALS: BP 132/63; RESP 20
[2017-05-18] MEDS: ENOXAPARIN 30 MG/0.3 ML SYG SC SCH (15:14)
--- NOTE | 2017-05-18 19:39 | PN ---
Date/Time of Note Date/Time of Note DATE: 05/18/17 TIME: 19:38 Assessment/Plan VTE Prophylaxis VTE Prophylaxis Intervention: other Lines/Catheters [facility] Saline Lock Urinary Cath still in place: No Assessment/Plan Chief Complaint/Hosp Course 1. Acalculous cholecystitis s/p ,Lap marvin with some fluid collection 2 Pneumonia o 3 Hyperkalemia hx 4 ESRD on HD M/W/F 5 Elevated Troponin? ACS however in ESRD +elevated trop however nuclear stress test negative 6 HTN 7Cardiomyopathy plan per id hd am ck xr chest Problems: Subjective 24 Hr Interval Summary Subjective hx not possible: other (sob+) Exam/Review of Systems Vital Signs Vitals Vital Signs Date Time Temp Pulse Resp B/P Pulse Ox O2 Delivery O2 Flow Rate FiO2 05/18/17 14:20 95 18 95 Nasal Cannula 4.0 05/18/17 14:02 98.8 132/63 Intake and Output 05/17/17 05/17/17 05/18/17 15:00 23:00 07:00 Intake Total 400 ml 1060 ml 360 ml Output Total 3600 ml Balance -3200 ml 1060 ml 360 ml Exam Neck: supple Respiratory: congested cough, diminished breath sounds Cardiovascular: regular rate and rhythm Gastrointestinal: bowel sounds (+), soft Extremities: edema (tr) Results Result Diagram: 05/18/17 0430 05/18/17 0430 Results 24 hrs Laboratory Tests Test 05/18/17 04:30 White Blood Count 11.3 H Red Blood Count 2.95 L Hemoglobin 9.1 L Hematocrit 29.1 L Mean Corpuscular Volume 98.6 Mean Corpuscular Hemoglobin 30.8 Mean Corpuscular Hemoglobin Concent 31.3 L Red Cell Distribution Width 17.0 H Platelet Count 456 H Mean Platelet Volume 11.0 H Neutrophils % 79.0 H Lymphocytes % 6.8 L Monocytes % 12.9 H Eosinophils % 0.4 Basophils % 0.4 Nucleated Red Blood Cells % 0.0 Neutrophils # (Manual) 8.9 H Lymphocytes # 0.8 Monocytes # 1.5 H Eosinophils # 0.0 Basophils # 0.0 Nucleated Red Blood Cells # 0.0 Sodium Level 135 Potassium Level 3.6 Chloride Level 94 L Carbon Dioxide Level 29 Anion Gap 16 Blood Urea Nitrogen 31 H Creatinine 6.25 H Glucose Level 103 Calcium Level 8.5 Total Bilirubin 0.0 L Direct Bilirubin 0.00 Indirect Bilirubin 0.0 Aspartate Amino Transf (AST/SGOT) 22 Alanine Aminotransferase (ALT/SGPT) 12 L Alkaline Phosphatase 431 H Total Protein 7.6 Albumin 3.1 L Globulin 4.50 H Albumin/Globulin Ratio 0.68 Medications Medications Current Medications Amlodipine Besylate (Norvasc) 5 mg BID PO Last administered on 05/18/17 10:28; Admin Dose 5 MG; Start 05/06/17 at 09:00 Atorvastatin Calcium (Lipitor) 20 mg QHS PO Last administered on 05/17/17 20:06 ; Admin Dose 20 MG; Start 05/06/17 at 21:00 Carvedilol (Coreg) 25 mg BID PO Last administered on 05/18/17 10:28; Admin Dose 25 MG; Start 05/06/17 at 09:00 Cinacalcet (Sensipar) 60 mg DAILY PO Last administered on 05/18/17 10:33; Admin Dose 60 MG; Start 05/06/17 at 09:00 Diphenhydramine HCl (Benadryl) 50 mg Q12H PRN PO ITCHING Last administered on 05:40; Admin Dose 50 MG; Start 05/06/17 at 00:00 Docusate Sodium (Colace) 100 mg BID PRN PO CONSTIPATION Last administered on 20:06; Admin Dose 100 MG; Start 05/06/17 at 00:00 Folic Acid (Folic Acid) 1 mg DAILY PO Last administered on 05/18/17 10:33; Admin Dose 1 MG; Start 05/06/17 at 09:00 Lanthanum Carbonate (Fosrenol) 500 mg TID PO Last administered on 05/18/17 10: 34; Admin Dose 500 MG; Start 05/06/17 at 09:00 Losartan Potassium (Cozaar) 50 mg BID PO Last administered on 05/18/17 10:28; Admin Dose 50 MG; Start 05/06/17 at 09:00 Pantoprazole (Protonix Tab) 40 mg DAILY@06 PO Last administered on 05/18/17 06: 13; Admin Dose 40 MG; Start 05/06/17 at 06:00 Acetaminophen (Tylenol Tab) 650 mg Q6H PRN PO PAIN LEVEL 1-3 OR FEVER; Start at 00:00 Acetaminophen (Tylenol Supp) 650 mg Q6H PRN [place] PAIN LEVEL 1-3 OR FEVER; Start 05/06/17 at 00:00 Acetaminophen/ Hydrocodone Bitart ([place] (5/325)) 1 tab Q6H PRN PO MODERATE PAIN LEVEL 4-6 Last administered on 05/13/17 09:02; Admin Dose 1 TAB; Start at 00:00 Bisacodyl (Dulcolax) 5 mg DAILY PRN PO CONSTIPATION; Start 05/06/17 at 00:00 Ondansetron HCl 4 mg 4 mg Q4H PRN IV NAUSEA AND/OR VOMITING Last administered on 05/18/17 18:12; Admin Dose 4 MG; Start 05/06/17 at 15:00 Sodium Chloride (NS) 1,000 ml @ 0 mls/hr Q0M PRN IV TO KEEP SBP ABOVE 90; Start 05/06/17 at 17:42 Diphenhydramine HCl (Benadryl) 25 mg QHS PRN IV INSOMNIA Last administered on 21:19; Admin Dose 25 MG; Start 05/08/17 at 12:30 Hydromorphone HCl (Dilaudid) 1 mg Q4H PRN IV SEVERE PAIN LEVEL 7-10 Last administered on 05/18/17 19:34; Admin Dose 1 MG; Start 05/09/17 at 16:00 Oxycodone/ Acetaminophen (Percocet (5/ 325)) 1 tab Q4H PRN PO PAIN Last administered on 05/18/17 11:29; Admin Dose 1 TAB; Start 05/13/17 at 09:30 Hydralazine HCl (Apresoline) 100 mg Q8 PO Last administered on 05/18/17 15:12; Admin Dose 100 MG; Start 05/13/17 at 22:00 Enoxaparin Sodium (Lovenox) 30 mg Q24H SC Last administered on 05/18/17 15:14; Admin Dose 30 MG; Start 05/14/17 at 14:00 Aspirin 81 mg 81 mg DAILY PO Last administered on 05/18/17 10:34; Admin Dose 81 MG; Start 05/14/17 at 13:30 Ampicillin Sodium/ Sulbactam Sodium (Unasyn 3gm/NS (Pmx)) 100 ml @ 100 mls/hr QPM IVPB Last administered on 05/17/17t 20:16; Admin Dose 100 MLS/HR; Start 05/15 at 21:00 REMI SIMPSON MD May 18, 2017 19:39
[2017-05-18 20:14] VITALS: BP 144/70; RESP 19
[2017-05-18] MEDS: AMPICILLIN/SULB 3 GM/NS (PMX) 100 ML IVPB SCH (20:25)
[2017-05-18] MEDS: ATORVASTATIN 20 MG TAB PO SCH (20:25)
[2017-05-19] VITALS (11 sets, daily range): BP systolic 116–141; BP diastolic 61–80; PULSE 72–79; RESP 18–20
[2017-05-19] MEDS: DIPHENHYDRAMINE 50 MG INJ IV PRN ×3 (00:36→20:44)
[2017-05-19] MEDS: ALBUTEROL 0.083% (NEB) 2.5 MG/3 ML AMP HHN SCH ×4 (01:42→20:19)
[2017-05-19] MEDS: ALBUTEROL/IPRATROPIUM (NEB) 3 ML AMP HHN PRN (01:42)
[2017-05-19 02:34] LABS: ADD UMIC YES; UR ASCORBIC ACID NEGATIVE (NEGATIVE); UR BACTERIA FEW /HPF (NONE SEEN); UR BILIRUBIN (Dip) NEGATIVE (NEGATIVE); UR BLOOD (Dip) NEGATIVE (NEGATIVE); UR BUDDING YEAST MANY /HPF (NONE SEEN); UR CLARITY TURBID (CLEAR); UR COLOR AMBER (YELLOW); UR GLUCOSE (Dip) NEGATIVE (NEGATIVE); UR KETONES (Dip) NEGATIVE (NEGATIVE); UR LEUKOCYTE ESTERASE (Dip) 2+ Leu/ul (NEGATIVE); UR NITRITE (Dip) NEGATIVE (NEGATIVE); UR RBC 14 /HPF (0-5); UR SPECIFIC GRAVITY (Dip) 1.011 (1.003-1.030); UR SQUAMOUS EPITHELIAL CELL MANY /HPF (FEW); UR TOTAL PROTEIN (Dip) 2+ mg/dl (NEGATIVE); UR UROBILINOGEN (Dip) NEGATIVE (NEGATIVE)
[2017-05-19] MEDS: PANTOPRAZOLE (EC) 40 MG TAB PO SCH (05:34)
[2017-05-19] MEDS: HYDROmorphONE 1 MG/ML SYG IV PRN ×4 (05:35→22:21)
[2017-05-19 06:57] LABS: ABNORMAL IP MESSAGE 1; BASOPHIL # 0.1 10^3/ul (0.0-0.1); BASOPHILS % 0.4 % (0.0-2.0); EOSINOPHILS # 0.1 10^3/ul (0.0-0.5); EOSINOPHILS % 0.4 % (0.0-7.0); HEMATOCRIT 27.4 % (37.0-47.0); HEMOGLOBIN 8.6 g/dl (12.0-16.0); LYMPHOCYTES # 0.9 10^3/ul (0.8-2.9); LYMPHOCYTES % 7.3 % (15.0-51.0); MEAN CORPUSCULAR HGB CONC 31.4 g/dl (32.0-37.0); MEAN CORPUSCULAR VOLUME 98.9 fl (82.0-101.0); MEAN PLATELET VOLUME 11.2 fl (7.4-10.4); MONOCYTE # 1.5 10^3/ul (0.3-0.9); MONOCYTES % 12.4 % (0.0-11.0); NEUTROPHILS % 78.8 % (39.0-77.0); PLATELET COUNT 427 10^3/UL (140-415); RED BLOOD COUNT 2.77 10^6/ul (4.20-5.40); RED CELL DISTRIBUTION WIDTH 16.8 % (11.5-14.5); WHITE BLOOD COUNT 12.4 10^3/ul (4.8-10.8)
[2017-05-19 06:59] LABS: POSITIVE DIFF @See below
[2017-05-19 07:19] LABS: ALBUMIN 2.9 g/dl (3.3-4.9); ALBUMIN/GLOBULIN RATIO 0.69; CALCIUM 8.4 mg/dl (8.4-10.2); CREATININE 8.66 mg/dl (0.44-1.00); TOTAL PROTEIN 7.1 g/dl (6.1-8.1)
[2017-05-19] MEDS: IPRATROPIUM (NEB) 0.5 MG/2.5 ML AMP HHN SCH ×3 (07:30→20:18)
[2017-05-19] MEDS: SEVELAMER CARBONATE 0.8 GM PKT PO SCH ×4 (07:35→17:35)
--- NOTE | 2017-05-19 08:15 | CONS ---
Date/Time of Note Date/Time of Note DATE: 05/19/17 TIME: 08:12 Assessment/Plan Assessment/Plan Chief Complaint/Hosp Course 1) Acute acalculous cholecystitis s/p laparoscopic cholecystectomy on 05/11 and liver wedge biopsy for hepatomegaly now with post-surgical fluid collection in the GB fossa associated with transient bump in WBC and worsening symptomatic pleuritic CP and SOB. The fluid collection on the CT does not appear to be well organized at this time to suggest an abscess and I agree with no drainage at this time. However, it is very likely infected as the GB was removed infected and there would have been some leaking of infected bile ducts at the time of the surgery. The most likely organisms are Enterococcus, E coli, Klebsiella, Streptococci and potentially yeast. Blood cultures have been unrevealing which is expected. Doing better overnight, with continued improvement in the WBC. No positive cultures. 05/17 - despite CXR with air bronchograms, pt does not exhibit overt signs of pneumonia overall improved, continue with unasyn, to get dialysis today if fevers or WBC an issue will need to broaden coverage for possible HCAP will check nasal for MRSA repeat CXR is pending 05/18 - low grade temp but no chills or sweats CXR has less signs of fluid overload wbc is slowly decreasing doubt aspiration of abd fluid is needed 05/19 - pt has mainly RUQ pain no N, V will order RUQ u/s to check status of fluid collection, if enlarging then aspiration and drainage will likely be necessary WBC is slowly rising 2. ESRD on HD via LUE fistula, 3x weekly with probable mild chronic volume overload exacerbated by the surgery and acute infection/inflammatory state of the gallbladder manifest as increased bilateral pleural effusions with compressive atelectasis and pericardial effusion. Improved respiratory status after 3.5L of fluid removed with HD today. 05/17 - pt to get dialysis today and repeat CXR 3. History of lupus, per patient has been quiescent for some time 4. CAD with prior history and elevated troponins on admission, per Dr. Spencer. 5. bilateral infiltrate/effusion (L>R) air bronchograms are noted 05/17 - pt to get repeat CXR this a.m. pt seems to be improved on unasyn but if fever and WBC becomes an issue may need to broaden coverage for possible HCAP 9/5 - WBC continues to slowly improving and pt feeling better, no cough CXR shows less fluid overload Problems: Consultation Date/Type/Reason Admit Date/Time May 05, 2017 at 18:31 Initial Consult Date 05/15/17 Type of Consultation: Infectious Diseases Referring Provider: REMI SIMPSON MD 24 HR Interval Summary Free Text/Dictation pt states breathing is getting better no phlegm but she spits up some secretions she had RUQ tenderness no N, V eating does not change the pain Exam/Review of Systems Vital Signs Vitals Vital Signs Date Time Temp Pulse Resp B/P Pulse Ox O2 Delivery O2 Flow Rate FiO2 05/19/17 07:50 98.6 18 132/62 91 05/19/17 02:08 81 05/19/17 01:42 Nasal Cannula 4.0 Intake and Output 05/18/17 05/18/17 05/19/17 15:00 23:00 07:00 Intake Total 1220 ml 1440 ml Balance 1220 ml 1440 ml Exam Constitutional: alert, oriented Head: normocephalic Eyes: nl sclera ENMT: mucosa pink and moist Respiratory: other (decreased BS at bases) Cardiovascular: murmurs/extra sounds, regular rate and rhythm Gastrointestinal: other (RUQ tenderness), soft Extremities: other (no edema) Results Result Diagram: 05/19/17 0611 05/19/17 0611 Results 24 hrs Laboratory Tests Test 05/18/17 23:50 05/19/17 06:11 Urine Color CHRISTEN Urine Clarity TURBID A Urine pH 7.0 Urine Specific [place] 1.011 Urine Ketones NEGATIVE Urine Nitrite NEGATIVE Urine Bilirubin NEGATIVE Urine Urobilinogen NEGATIVE Urine Leukocyte Esterase 2+ H Urine Microscopic RBC 14 H Urine Microscopic WBC 53 H Urine Squamous Epithelial Cells MANY A Urine Bacteria FEW A Urine Yeast (Budding) MANY A Urine Hemoglobin NEGATIVE Urine Glucose NEGATIVE Urine Total Protein 2+ H White Blood Count 12.4 H Red Blood Count 2.77 L Hemoglobin 8.6 L Hematocrit 27.4 L Mean Corpuscular Volume 98.9 Mean Corpuscular Hemoglobin 31.0 Mean Corpuscular Hemoglobin Concent 31.4 L Red Cell Distribution Width 16.8 H Platelet Count 427 H Mean Platelet Volume 11.2 H Neutrophils % 78.8 H Lymphocytes % 7.3 L Monocytes % 12.4 H Eosinophils % 0.4 Basophils % 0.4 Nucleated Red Blood Cells % 0.0 Neutrophils # (Manual) 9.8 H Lymphocytes # 0.9 Monocytes # 1.5 H Eosinophils # 0.1 Basophils # 0.1 Nucleated Red Blood Cells # 0.0 Sodium Level 132 L Potassium Level 4.0 Chloride Level 92 L Carbon Dioxide Level 28 Anion Gap 16 Blood Urea Nitrogen 46 #H Creatinine 8.66 #H Glucose Level 92 Calcium Level 8.4 Total Bilirubin 0.0 L Direct Bilirubin 0.00 Indirect Bilirubin 0.0 Aspartate Amino Transf (AST/SGOT) 24 Alanine Aminotransferase (ALT/SGPT) 18 Alkaline Phosphatase 550 H Total Protein 7.1 Albumin 2.9 L Globulin 4.20 H Albumin/Globulin Ratio 0.69 Medications Medications Current Medications Amlodipine Besylate (Norvasc) 5 mg BID PO Last administered on 05/18/17 20:26; Admin Dose 5 MG; Start 05/06/17 at 09:00 Atorvastatin Calcium (Lipitor) 20 mg QHS PO Last administered on 05/18/17 20:25 ; Admin Dose 20 MG; Start 05/06/17 at 21:00 Carvedilol (Coreg) 25 mg BID PO Last administered on 05/18/17 20:26; Admin Dose 25 MG; Start 05/06/17 at 09:00 Cinacalcet (Sensipar) 60 mg DAILY PO Last administered on 05/18/17 10:33; Admin Dose 60 MG; Start 05/06/17 at 09:00 Diphenhydramine HCl (Benadryl) 50 mg Q12H PRN PO ITCHING Last administered on 05:40; Admin Dose 50 MG; Start 05/06/17 at 00:00 Docusate Sodium (Colace) 100 mg BID PRN PO CONSTIPATION Last administered on 20:06; Admin Dose 100 MG; Start 05/06/17 at 00:00 Folic Acid (Folic Acid) 1 mg DAILY PO Last administered on 05/18/17 10:33; Admin Dose 1 MG; Start 05/06/17 at 09:00 Lanthanum Carbonate (Fosrenol) 500 mg TID PO Last administered on 05/18/17 20: 25; Admin Dose 500 MG; Start 05/06/17 at 09:00 Losartan Potassium (Cozaar) 50 mg BID PO Last administered on 05/18/17 20:25; Admin Dose 50 MG; Start 05/06/17 at 09:00 Pantoprazole (Protonix Tab) 40 mg DAILY@06 PO Last administered on 05/19/17 05: 34; Admin Dose 40 MG; Start 05/06/17 at 06:00 Acetaminophen (Tylenol Tab) 650 mg Q6H PRN PO PAIN LEVEL 1-3 OR FEVER; Start at 00:00 Acetaminophen (Tylenol Supp) 650 mg Q6H PRN [place] PAIN LEVEL 1-3 OR FEVER; Start 05/06/17 at 00:00 Acetaminophen/ Hydrocodone Bitart ([place] (5/325)) 1 tab Q6H PRN PO MODERATE PAIN LEVEL 4-6 Last administered on 05/13/17 09:02; Admin Dose 1 TAB; Start at 00:00 Bisacodyl (Dulcolax) 5 mg DAILY PRN PO CONSTIPATION; Start 05/06/17 at 00:00 Ondansetron HCl 4 mg 4 mg Q4H PRN IV NAUSEA AND/OR VOMITING Last administered on 05/18/17 18:12; Admin Dose 4 MG; Start 05/06/17 at 15:00 Sodium Chloride (NS) 1,000 ml @ 0 mls/hr Q0M PRN IV TO KEEP SBP ABOVE 90; Start 05/06/17 at 17:42 Diphenhydramine HCl (Benadryl) 25 mg QHS PRN IV INSOMNIA Last administered on 00:36; Admin Dose 25 MG; Start 05/08/17 at 12:30 Hydromorphone HCl (Dilaudid) 1 mg Q4H PRN IV SEVERE PAIN LEVEL 7-10 Last administered on 05/19/17 05:35; Admin Dose 1 MG; Start 05/09/17 at 16:00 Oxycodone/ Acetaminophen (Percocet (5/ 325)) 1 tab Q4H PRN PO PAIN Last administered on 05/18/17 11:29; Admin Dose 1 TAB; Start 05/13/17 at 09:30 Hydralazine HCl (Apresoline) 100 mg Q8 PO Last administered on 05/19/17 05:35; Admin Dose 100 MG; Start 05/13/17 at 22:00 Enoxaparin Sodium (Lovenox) 30 mg Q24H SC Last administered on 05/18/17 15:14; Admin Dose 30 MG; Start 05/14/17 at 14:00 Aspirin 81 mg 81 mg DAILY PO Last administered on 05/18/17 10:34; Admin Dose 81 MG; Start 05/14/17 at 13:30 Ampicillin Sodium/ Sulbactam Sodium (Unasyn 3gm/NS (Pmx)) 100 ml @ 100 mls/hr QPM IVPB Last administered on 05/18/17 20:25; Admin Dose 100 MLS/HR; Start 05/15 at 21:00 SIA CALDERÓN MD May 19, 2017 08:15
[2017-05-19] MEDS: AMLODIPINE 5 MG TAB PO SCH ×2 (09:00→20:42)
[2017-05-19] MEDS: LOSARTAN 50 MG TAB PO SCH ×2 (09:00→20:41)
[2017-05-19] MEDS: LANTHANUM 500 MG CHEW PO SCH ×4 (09:58→20:49)
[2017-05-19] MEDS: ASPIRIN (EC) 81 MG TAB PO SCH (09:58)
[2017-05-19] MEDS: CINACALCET 30 MG TAB PO SCH (09:58)
[2017-05-19] MEDS: FOLIC ACID 1 MG TAB PO SCH (09:59)
[2017-05-19] MEDS: ONDANSETRON 4 MG INJ IV PRN ×2 (10:27→15:10)
--- NOTE | 2017-05-19 11:25 | RADRPT ---
AMENDMENT: 05/20/2017 8:24:16 AM Souleymane Schwartz M.D The fluid collection in the gallbladder fossa actually measures 2.5 x 1.4 cm. PROCEDURE: US Abdomen. CLINICAL INDICATION: abdominal pain TECHNIQUE: Multiple real-time images were acquired of the patient's right upper quadrant abdomen a nd retroperitoneum utilizing a high resolution transducer. COMPARISON: CT 05/15/2017; US ABDOMEN 05/05/2017 FINDINGS: The liver demonstrates normal echogenicity. The liver is normal in size and no focal solid lesions are seen. The liver measures 16.9 cm in length. The portal vein is patent with normal direction of f low. No intrahepatic biliary dilatation is seen. The patient is status post cholecystectomy. There is a 7.9 x 3.2 cm complex echogenic structure in t he gallbladder fossa. The common bile duct measures 5 mm in maximal dimension. The visualized portions of the pancreas are unremarkable. The tail of the pancreas is not seen. No free fluid is identified in the abdomen. There is a right pleural effusion. The right kidney is atrophic. There is thinning of the cortex. The right kidney measures 7.9 cm in l indira dimension. There is no evidence of hydronephrosis. There are no kidney stones. RPTAT: AA IMPRESSION: Status post cholecystectomy. 7.9 cm complex structure in the gallbladder fossa may represent a posto perative hematoma or developing fluid collection. Clinical correlation and follow-up is recommended. .Souleymane Schwartz MD, MD Date Time Electronically viewed and signed by .Souleymane Schwartz MD, MD on 05/20/2017 08:24 .S/
--- NOTE | 2017-05-19 12:45 | RADRPT ---
PROCEDURE: XR Chest. CLINICAL INDICATION: Shortness of breath . TECHNIQUE: PA and lateral chest x-ray. COMPARISON: 11/29/2016, 10/28/2016 FINDINGS: There is a right-sided single lead AICD in place.. Cardiomegaly with hilar congestion and perihilar edema consistent with congestive heart failure is noted. There are bilateral pleural effusions new s mariya prior exam. Focal loculated pleural effusion is seen in the right upper thorax. Bibasilar atele ctasis with low lung volumes is present.. The osseous structures are unremarkable. IMPRESSION: 1. Cardiomegaly with hilar congestion, perihilar edema and bilateral pleural effusions consistent w ith congestive heart failure. 2. Right-sided AICD in place. . RPTAT: GG .Chilango Marquez MD, Date Time Electronically viewed and signed by .Chilango Marquez MD, MD on 05/19/2017 12:45 .L/
[2017-05-19] MEDS ORDERED: DESMOPRESSIN 15 MCG in SOD CHLORIDE 0.9% 50 ML IVPB ONE (14:00)
--- NOTE | 2017-05-19 15:58 | PN ---
Date/Time of Note Date/Time of Note DATE: 05/19/17 TIME: 15:40 Assessment/Plan Lines/Catheters IV Catheter Type (from [facility]): Saline Lock Cer[place] in Place (from Nrs): No Assessment/Plan Chief Complaint/Hosp Course 1.Acalculous Cholecystitis: s/p lap marvin; abdominal pain improved; however now with SOB and need for supplemental O2 as well as worsening leukocytosis: pleural and pericardial effusion.; amylase/lipase nl; CT noted with small fluid collection-not drainable per radiologist; US abdomen noted; right abd incision site with bleed-surgicel and pressure dressing applied -increase ambulation as tolerated -IS-patient must use -Ice pack to abdominal wall; -pain management -abx per id -check coags and monitor site for further bleed -ct guided drainage of fluid collection 2. ESRD with HD -continue medical management 3.Shortness of breath and oxygen desaturation on room air:CT noted with pleural and pericardial effusion. cxr: poss chf -supplemental O2 to maintain O2 sat >92% -as above -medical management 4. Macrocytic anemia: -monitor and transfuse as needed 5. Leukocytosis: trending up -monitor and trend 6. Hypertension: -medical management -continue HD 7. Hypoalbuminemia:Likely nutritional -optimize nutrition 8. Pericardial effusion with pleural effusion; poss chf -diuresis -hd -per cardiology Patient seen and examined in collaboration with Dr. Alex Frazier. Thank you. Problems: Subjective 24 Hr Interval Summary S/P ultrasound abdomen and returned with bleeding noted from right incision site. Abdominal pain improved. Tolerating diet. Leukocytosis worsened today. Min sob. No fevers, chills, cp, palpitations, n/v/d/dysuria, chavarria, dizziness. Exam/Review of Systems Vital Signs Vitals Vital Signs Date Time Temp Pulse Resp B/P Pulse Ox O2 Delivery O2 Flow Rate FiO2 05/19/17 14:00 99.6 102 20 135/61 92 05/19/17 13:50 Nasal Cannula 4.0 05/19/17 07:30 36 Intake and Output 05/18/17 05/18/17 05/19/17 15:00 23:00 07:00 Intake Total 1220 ml 1440 ml Balance 1220 ml 1440 ml Exam Free Text/Dictation Constitutional: alert, oriented Psych: anxious Head: atraumatic, normocephalic Eyes: nl lids, nl sclera ENMT: No mucosa pink and moist (dry) Neck: non-tender, supple Respiratory: diminished, crackles; supplemental O2No congested cough Cardiovascular: regular rate and rhythmNo edema Gastrointestinal: bowel sounds, soft, radha-incision tenderness improved. Bleeding from right lower quad s/p ultrasound. Other incisions dry. No distended Genitourinary - Female: nl external genitalia Musculoskeletal: nl gait and stance, No muscle weakness Extremities: normal pulses, TANIA: fistula +thrill/bruitNo edema Neurological: nl mental status, nl speech, nl strength Skin: No rash or lesions, dry Lymph: No nl lymph nodes Results Result Diagram: 05/19/1761005/19/17 06 [place] ANDRADE NP May 19, 2017 15:54
--- NOTE | 2017-05-19 16:19 | CONS ---
Date/Time of Note Date/Time of Note DATE: 05/19/17 TIME: 16:12 Assessment/Plan Assessment/Plan Chief Complaint/Hosp Course IMPRESSION: 1. Positive troponin in the setting of renal failure with a history of nonischemic cardiomyopathy by catheterization December 2015, thus likely a marker of chronic cardiomyopathy more than suggestive of acute coronary syndrome.-minimal uptrend/NO cp 2. Cardiomyopathy with decreased left ventricular ejection fraction. 3. Hypertension. 4. Dyslipidemia. 5. Acute cholecystitis. Now post-op s/p Lap marvin with mary revealing possible hematoma collection 6. Endstage renal dialysis on hemodialysis. 7. Anemia. 8. Hyperkalemia-improved 9. CHF-systolic acute on chronic Recc: -Continue coreg/norvasc/hydralazine -continue statin/asa -HD for volume removal aggresively Problems: Consultation Date/Type/Reason Admit Date/Time May 05, 2017 at 18:31 Initial Consult Date 05/06/17 Type of Consultation: cardiology Reason for Consultation positive troponin/cardiomyopathy Referring Provider: REMI SIMPSON MD Exam/Review of Systems Vital Signs Vitals Vital Signs Date Time Temp Pulse Resp B/P Pulse Ox O2 Delivery O2 Flow Rate FiO2 05/19/17 14:00 99.6 102 20 135/61 92 05/19/17 13:50 Nasal Cannula 4.0 05/19/17 07:30 36 Intake and Output 05/18/17 05/18/17 05/19/17 15:00 23:00 07:00 Intake Total 1220 ml 1440 ml Balance 1220 ml 1440 ml Exam Review of Systems: CONSTITUTIONAL: No fevers, chills. PULMONARY: No sob CARDIOVASCULAR: No chest pain/palpitations GASTROINTESTINAL: No nausea/vomiting. GENITOURINARY: No hematuria/dysuria. MUSCULOSKELETAL: No myagias/arthalgias. PSYCHIATRIC: The patient denies depression. NEUROLOGIC: No weakness Constitutional: alert, oriented Psych: no complaints Head: normocephalic ENMT: mucosa pink and moist Neck: jvd (9 cm water), supple Respiratory: diminished breath sounds (at base/B) Cardiovascular: regular rate and rhythm Gastrointestinal: non-tender, soft Musculoskeletal: muscle tone Extremities: edema (trace/B) Neurological: other (No focal deficits) Results Result Diagram: 9/6/17 0611 9/6/17 0611 Results 24 hrs Laboratory Tests Test 05/18/17 23:50 05/19/17 06:11 Urine Color CHRISTEN Urine Clarity TURBID A Urine pH 7.0 Urine Specific [place] 1.011 Urine Ketones NEGATIVE Urine Nitrite NEGATIVE Urine Bilirubin NEGATIVE Urine Urobilinogen NEGATIVE Urine Leukocyte Esterase 2+ H Urine Microscopic RBC 14 H Urine Microscopic WBC 53 H Urine Squamous Epithelial Cells MANY A Urine Bacteria FEW A Urine Yeast (Budding) MANY A Urine Hemoglobin NEGATIVE Urine Glucose NEGATIVE Urine Total Protein 2+ H White Blood Count 12.4 H Red Blood Count 2.77 L Hemoglobin 8.6 L Hematocrit 27.4 L Mean Corpuscular Volume 98.9 Mean Corpuscular Hemoglobin 31.0 Mean Corpuscular Hemoglobin Concent 31.4 L Red Cell Distribution Width 16.8 H Platelet Count 427 H Mean Platelet Volume 11.2 H Neutrophils % 78.8 H Lymphocytes % 7.3 L Monocytes % 12.4 H Eosinophils % 0.4 Basophils % 0.4 Nucleated Red Blood Cells % 0.0 Neutrophils # (Manual) 9.8 H Lymphocytes # 0.9 Monocytes # 1.5 H Eosinophils # 0.1 Basophils # 0.1 Nucleated Red Blood Cells # 0.0 Sodium Level 132 L Potassium Level 4.0 Chloride Level 92 L Carbon Dioxide Level 28 Anion Gap 16 Blood Urea Nitrogen 46 #H Creatinine 8.66 #H Glucose Level 92 Calcium Level 8.4 Total Bilirubin 0.0 L Direct Bilirubin 0.00 Indirect Bilirubin 0.0 Aspartate Amino Transf (AST/SGOT) 24 Alanine Aminotransferase (ALT/SGPT) 18 Alkaline Phosphatase 550 H Total Protein 7.1 Albumin 2.9 L Globulin 4.20 H Albumin/Globulin Ratio 0.69 Medications Medications Current Medications Amlodipine Besylate (Norvasc) 5 mg BID PO Last administered on 05/18/17 20:26; Admin Dose 5 MG; Start 05/06/17 at 09:00 Atorvastatin Calcium (Lipitor) 20 mg QHS PO Last administered on 05/18/17 20:25 ; Admin Dose 20 MG; Start 05/06/17 at 21:00 Carvedilol (Coreg) 25 mg BID PO Last administered on 05/18/17 20:26; Admin Dose 25 MG; Start 05/06/17 at 09:00 Cinacalcet (Sensipar) 60 mg DAILY PO Last administered on 05/19/17 09:58; Admin Dose 60 MG; Start 05/06/17 at 09:00 Diphenhydramine HCl (Benadryl) 50 mg Q12H PRN PO ITCHING Last administered on 05:40; Admin Dose 50 MG; Start 05/06/17 at 00:00 Docusate Sodium (Colace) 100 mg BID PRN PO CONSTIPATION Last administered on 20:06; Admin Dose 100 MG; Start 05/06/17 at 00:00 Folic Acid (Folic Acid) 1 mg DAILY PO Last administered on 05/19/17 09:59; Admin Dose 1 MG; Start 05/06/17 at 09:00 Lanthanum Carbonate (Fosrenol) 500 mg TID PO Last administered on 05/19/17 09: 58; Admin Dose 500 MG; Start 05/06/17 at 09:00 Losartan Potassium (Cozaar) 50 mg BID PO Last administered on 05/18/17 20:25; Admin Dose 50 MG; Start 05/06/17 at 09:00 Pantoprazole (Protonix Tab) 40 mg DAILY@06 PO Last administered on 05/19/17 05: 34; Admin Dose 40 MG; Start 05/06/17 at 06:00 Acetaminophen (Tylenol Tab) 650 mg Q6H PRN PO PAIN LEVEL 1-3 OR FEVER; Start at 00:00 Acetaminophen (Tylenol Supp) 650 mg Q6H PRN [place] PAIN LEVEL 1-3 OR FEVER; Start 05/06/17 at 00:00 Acetaminophen/ Hydrocodone Bitart ([place] (5/325)) 1 tab Q6H PRN PO MODERATE PAIN LEVEL 4-6 Last administered on 05/13/17 09:02; Admin Dose 1 TAB; Start at 00:00 Bisacodyl (Dulcolax) 5 mg DAILY PRN PO CONSTIPATION; Start 05/06/17 at 00:00 Ondansetron HCl 4 mg 4 mg Q4H PRN IV NAUSEA AND/OR VOMITING Last administered on 05/19/17 15:10; Admin Dose 4 MG; Start 05/06/17 at 15:00 Sodium Chloride (NS) 1,000 ml @ 0 mls/hr Q0M PRN IV TO KEEP SBP ABOVE 90; Start 05/06/17 at 17:42 Diphenhydramine HCl (Benadryl) 25 mg QHS PRN IV INSOMNIA Last administered on 00:36; Admin Dose 25 MG; Start 05/08/17 at 12:30 Hydromorphone HCl (Dilaudid) 1 mg Q4H PRN IV SEVERE PAIN LEVEL 7-10 Last administered on 05/19/17 15:10; Admin Dose 1 MG; Start 05/09/17 at 16:00 Oxycodone/ Acetaminophen (Percocet (5/ 325)) 1 tab Q4H PRN PO PAIN Last administered on 05/18/17 11:29; Admin Dose 1 TAB; Start 05/13/17 at 09:30 Hydralazine HCl (Apresoline) 100 mg Q8 PO Last administered on 05/19/17 05:35; Admin Dose 100 MG; Start 05/13/17 at 22:00 Enoxaparin Sodium (Lovenox) 30 mg Q24H SC Last administered on 05/18/17 15:14; Admin Dose 30 MG; Start 05/14/17 at 14:00; Status Future Hold Aspirin 81 mg 81 mg DAILY PO Last administered on 05/19/17 09:58; Admin Dose 81 MG; Start 05/14/17 at 13:30 Ampicillin Sodium/ Sulbactam Sodium (Unasyn 3gm/NS (Pmx)) 100 ml @ 100 mls/hr QPM IVPB Last administered on 05/18/17 20:25; Admin Dose 100 MLS/HR; Start 05/15 at 21:00 Diphenhydramine HCl (Benadryl) 25 mg Q6H PRN IV PRURITUS Last administered on 11:04; Admin Dose 25 MG; Start 05/19/17 at 11:00 DEONNA DENT May 19, 2017 16:19
[2017-05-19] MEDS ORDERED: HYDROmorphONE 1 MG/ML SYG IV STA (17:47)
[2017-05-19 17:54] LABS: ABNORMAL IP MESSAGE 1; BASOPHIL # 0.1 10^3/ul (0.0-0.1); BASOPHILS % 0.4 % (0.0-2.0); EOSINOPHILS % 0.1 % (0.0-7.0); HEMATOCRIT 30.1 % (37.0-47.0); HEMOGLOBIN 9.5 g/dl (12.0-16.0); LYMPHOCYTES # 0.6 10^3/ul (0.8-2.9); LYMPHOCYTES % 4.3 % (15.0-51.0); MEAN CORPUSCULAR HEMOGLOBIN 31.3 pg (29.0-33.0); MEAN CORPUSCULAR HGB CONC 31.6 g/dl (32.0-37.0); MEAN PLATELET VOLUME 10.9 fl (7.4-10.4); MONOCYTE # 1.4 10^3/ul (0.3-0.9); MONOCYTES % 11.3 % (0.0-11.0); NEUTROPHILS % 83.2 % (39.0-77.0); PLATELET COUNT 434 10^3/UL (140-415); RED BLOOD COUNT 3.04 10^6/ul (4.20-5.40); RED CELL DISTRIBUTION WIDTH 16.9 % (11.5-14.5); WHITE BLOOD COUNT 12.7 10^3/ul (4.8-10.8)
[2017-05-19 18:08] LABS: POSITIVE DIFF @See below
[2017-05-19 18:56] LABS: INR 1.1; PROTIME 14.2 Sec (12.2-14.2); PT RATIO 1.1
[2017-05-19 19:14] LABS: AMYLASE 82 U/L (11-123)
[2017-05-19] MEDS: AMPICILLIN/SULB 3 GM/NS (PMX) 100 ML IVPB SCH (20:40)
[2017-05-19] MEDS: ATORVASTATIN 20 MG TAB PO SCH (20:41)
--- NOTE | 2017-05-19 23:16 | PN ---
Date/Time of Note Date/Time of Note DATE: 05/19/17 TIME: 23:14 Assessment/Plan VTE Prophylaxis VTE Prophylaxis Intervention: other Lines/Catheters IV Catheter Type (from [facility]): Saline Lock Urinary Cath still in place: No Assessment/Plan Chief Complaint/Hosp Course 1. Acalculous cholecystitis s/p ,Lap marvin with some fluid collection 2 Pneumonia o 3 Hyperkalemia hx 4 ESRD on HD M/W/F 5 Elevated Troponin? ACS however in ESRD +elevated trop however nuclear stress test negative 6 HTN 7Cardiomyopathy 8 ABD SITE BLEEDING plan per id hd DDAVP Problems: Subjective 24 Hr Interval Summary Respiratory: shortness of breath (BETTER) Cardiovascular: no complaints Exam/Review of Systems Vital Signs Vitals Vital Signs Date Time Temp Pulse Resp B/P Pulse Ox O2 Delivery O2 Flow Rate FiO2 05/19/17 20:21 85 18 95 Nasal Cannula 4.0 05/19/17 20:00 98.3 141/68 05/19/17 07:30 36 Intake and Output 05/18/17 05/18/17 05/19/17 15:00 23:00 07:00 Intake Total 1220 ml 1440 ml Balance 1220 ml 1440 ml Exam Neck: supple Respiratory: clear to auscultation Cardiovascular: regular rate and rhythm Gastrointestinal: bowel sounds (+), other (ABD SIE BLEEDING+), soft Extremities: edema Results Result Diagram: 05/19/17 1743 05/19/17 0611 Results 24 hrs Laboratory Tests Test 05/18/17 23:50 05/19/17 06:11 05/19/17 17:43 Urine Color CHRISTEN Urine Clarity TURBID A Urine pH 7.0 Urine Specific [place] 1.011 Urine Ketones NEGATIVE Urine Nitrite NEGATIVE Urine Bilirubin NEGATIVE Urine Urobilinogen NEGATIVE Urine Leukocyte Esterase 2+ H Urine Microscopic RBC 14 H Urine Microscopic WBC 53 H Urine Squamous Epithelial Cells MANY A Urine Bacteria FEW A Urine Yeast (Budding) MANY A Urine Hemoglobin NEGATIVE Urine Glucose NEGATIVE Urine Total Protein 2+ H White Blood Count 12.4 H 12.7 H Red Blood Count 2.77 L 3.04 L Hemoglobin 8.6 L 9.5 L Hematocrit 27.4 L 30.1 L Mean Corpuscular Volume 98.9 99.0 Mean Corpuscular Hemoglobin 31.0 31.3 Mean Corpuscular Hemoglobin Concent 31.4 L 31.6 L Red Cell Distribution Width 16.8 H 16.9 H Platelet Count 427 H 434 H Mean Platelet Volume 11.2 H 10.9 H Neutrophils % 78.8 H 83.2 H Lymphocytes % 7.3 L 4.3 L Monocytes % 12.4 H 11.3 H Eosinophils % 0.4 0.1 Basophils % 0.4 0.4 Nucleated Red Blood Cells % 0.0 0.0 Neutrophils # (Manual) 9.8 H 10.6 H Lymphocytes # 0.9 0.6 L Monocytes # 1.5 H 1.4 H Eosinophils # 0.1 0.0 Basophils # 0.1 0.1 Nucleated Red Blood Cells # 0.0 0.0 Sodium Level 132 L Potassium Level 4.0 Chloride Level 92 L Carbon Dioxide Level 28 Anion Gap 16 Blood Urea Nitrogen 46 #H Creatinine 8.66 #H Glucose Level 92 Calcium Level 8.4 Total Bilirubin 0.0 L Direct Bilirubin 0.00 Indirect Bilirubin 0.0 Aspartate Amino Transf (AST/SGOT) 24 Alanine Aminotransferase (ALT/SGPT) 18 Alkaline Phosphatase 550 H Total Protein 7.1 Albumin 2.9 L Globulin 4.20 H Albumin/Globulin Ratio 0.69 Prothrombin Time 14.2 Prothrombin Time Ratio 1.1 INR International Normalized Ratio 1.10 Amylase Level 82 Lipase 48 Medications Medications Current Medications Amlodipine Besylate (Norvasc) 5 mg BID PO Last administered on 05/19/17 20:42; Admin Dose 5 MG; Start 05/06/17 at 09:00 Atorvastatin Calcium (Lipitor) 20 mg QHS PO Last administered on 05/19/17 20:41 ; Admin Dose 20 MG; Start 05/06/17 at 21:00 Carvedilol (Coreg) 25 mg BID PO Last administered on 05/19/17 20:41; Admin Dose 25 MG; Start 05/06/17 at 09:00 Cinacalcet (Sensipar) 60 mg DAILY PO Last administered on 05/19/17 09:58; Admin Dose 60 MG; Start 05/06/17 at 09:00 Diphenhydramine HCl (Benadryl) 50 mg Q12H PRN PO ITCHING Last administered on 05:40; Admin Dose 50 MG; Start 05/06/17 at 00:00 Docusate Sodium (Colace) 100 mg BID PRN PO CONSTIPATION Last administered on 20:06; Admin Dose 100 MG; Start 05/06/17 at 00:00 Folic Acid (Folic Acid) 1 mg DAILY PO Last administered on 05/19/17 09:59; Admin Dose 1 MG; Start 05/06/17 at 09:00 Lanthanum Carbonate (Fosrenol) 500 mg TID PO Last administered on 05/19/17 09: 58; Admin Dose 500 MG; Start 05/06/17 at 09:00 Losartan Potassium (Cozaar) 50 mg BID PO Last administered on 05/19/17 20:41; Admin Dose 50 MG; Start 05/06/17 at 09:00 Pantoprazole (Protonix Tab) 40 mg DAILY@06 PO Last administered on 05/19/17 05: 34; Admin Dose 40 MG; Start 05/06/17 at 06:00 Acetaminophen (Tylenol Tab) 650 mg Q6H PRN PO PAIN LEVEL 1-3 OR FEVER; Start at 00:00 Acetaminophen (Tylenol Supp) 650 mg Q6H PRN [place] PAIN LEVEL 1-3 OR FEVER; Start 05/06/17 at 00:00 Acetaminophen/ Hydrocodone Bitart ([place] (5/325)) 1 tab Q6H PRN PO MODERATE PAIN LEVEL 4-6 Last administered on 05/13/17 09:02; Admin Dose 1 TAB; Start at 00:00 Bisacodyl (Dulcolax) 5 mg DAILY PRN PO CONSTIPATION; Start 05/06/17 at 00:00 Ondansetron HCl 4 mg 4 mg Q4H PRN IV NAUSEA AND/OR VOMITING Last administered on 05/19/17 15:10; Admin Dose 4 MG; Start 05/06/17 at 15:00 Sodium Chloride (NS) 1,000 ml @ 0 mls/hr Q0M PRN IV TO KEEP SBP ABOVE 90; Start 05/06/17 at 17:42 Diphenhydramine HCl (Benadryl) 25 mg QHS PRN IV INSOMNIA Last administered on 00:36; Admin Dose 25 MG; Start 05/08/17 at 12:30 Hydromorphone HCl (Dilaudid) 1 mg Q4H PRN IV SEVERE PAIN LEVEL 7-10 Last administered on 05/19/17 22:21; Admin Dose 1 MG; Start 05/09/17 at 16:00 Oxycodone/ Acetaminophen (Percocet (5/ 325)) 1 tab Q4H PRN PO PAIN Last administered on 05/18/17 11:29; Admin Dose 1 TAB; Start 05/13/17 at 09:30 Hydralazine HCl (Apresoline) 100 mg Q8 PO Last administered on 05/19/17 22:21; Admin Dose 100 MG; Start 05/13/17 at 22:00 Enoxaparin Sodium 30 mg 30 mg Q24H SC Last administered on 05/18/17 15:14; Admin Dose 30 MG; Start 05/14/17 at 14:00; Status Future Hold Ampicillin Sodium/ Sulbactam Sodium (Unasyn 3gm/NS (Pmx)) 100 ml @ 100 mls/hr QPM IVPB Last administered on 05/19/17 20:40; Admin Dose 100 MLS/HR; Start 05/15 at 21:00 Diphenhydramine HCl (Benadryl) 25 mg Q6H PRN IV PRURITUS Last administered on 20:44; Admin Dose 25 MG; Start 05/19/17 at 11:00 REMI SIMPSON MD May 19, 2017 23:16
[2017-05-20 02:00] VITALS: BP 140/68; RESP 19
[2017-05-20] MEDS: ALBUTEROL 0.083% (NEB) 2.5 MG/3 ML AMP HHN SCH ×4 (02:08→19:49)
[2017-05-20] MEDS: IPRATROPIUM (NEB) 0.5 MG/2.5 ML AMP HHN SCH ×4 (02:08→19:49)
[2017-05-20] MEDS: ONDANSETRON 4 MG INJ IV PRN ×4 (02:23→20:10)
[2017-05-20] MEDS: HYDROmorphONE 1 MG/ML SYG IV PRN ×5 (02:24→20:10)
[2017-05-20] MEDS: PANTOPRAZOLE (EC) 40 MG TAB PO SCH (05:35)
[2017-05-20 06:39] LABS: BASOPHIL # 0.1 10^3/ul (0.0-0.1); BASOPHILS % 0.5 % (0.0-2.0); EOSINOPHILS % 0.3 % (0.0-7.0); HEMATOCRIT 27.7 % (37.0-47.0); HEMOGLOBIN 8.6 g/dl (12.0-16.0); LYMPHOCYTES # 0.9 10^3/ul (0.8-2.9); LYMPHOCYTES % 6.9 % (15.0-51.0); MEAN CORPUSCULAR HEMOGLOBIN 30.7 pg (29.0-33.0); MEAN CORPUSCULAR VOLUME 98.9 fl (82.0-101.0); MEAN PLATELET VOLUME 11.1 fl (7.4-10.4); MONOCYTE # 1.4 10^3/ul (0.3-0.9); MONOCYTES % 11.3 % (0.0-11.0); NEUTROPHILS % 80.4 % (39.0-77.0); PLATELET COUNT 406 10^3/UL (140-415); RED CELL DISTRIBUTION WIDTH 16.8 % (11.5-14.5); WHITE BLOOD COUNT 12.4 10^3/ul (4.8-10.8)
[2017-05-20 06:59] LABS: ALBUMIN/GLOBULIN RATIO 0.68; CALCIUM 8.7 mg/dl (8.4-10.2); CREATININE 6.85 mg/dl (0.44-1.00); POTASSIUM 4.3 mmol/L (3.5-5.1); TOTAL PROTEIN 7.4 g/dl (6.1-8.1)
[2017-05-20 07:55] VITALS: BP 130/62; RESP 18
[2017-05-20] MEDS: SEVELAMER CARBONATE 0.8 GM PKT PO SCH ×3 (08:32→17:23)
[2017-05-20] MEDS: LOSARTAN 50 MG TAB PO SCH ×2 (08:37→21:24)
[2017-05-20] MEDS: CINACALCET 30 MG TAB PO SCH (08:37)
[2017-05-20] MEDS: LANTHANUM 500 MG CHEW PO SCH ×3 (08:38→21:23)
[2017-05-20] MEDS: AMLODIPINE 5 MG TAB PO SCH ×2 (08:38→21:25)
[2017-05-20] MEDS: FOLIC ACID 1 MG TAB PO SCH (08:38)
--- NOTE | 2017-05-20 08:42 | PN ---
Date/Time of Note Date/Time of Note DATE: 05/20/17 TIME: 08:17 Assessment/Plan Lines/Catheters IV Catheter Type (from [facility]): Saline Lock Cerda in Place (from [facility]): No Assessment/Plan Chief Complaint/Hosp Course 1.Acalculous Cholecystitis: s/p lap marvin; abdominal pain improved; however now with SOB and need for supplemental O2 as well as worsening leukocytosis: pleural and pericardial effusion.; amylase/lipase nl; CT noted with small fluid collection-not drainable per radiologist; US abdomen noted, CT guided drainage not done- correction was made on the read, no drainable fluid collection. -increase ambulation as tolerated -IS-patient must use -Ice pack to abdominal wall; -pain management -abx per id 2. ESRD with HD -continue medical management 3.Shortness of breath and intermittent use of supplemental oxygen :CT noted with pleural and pericardial effusion. cxr: poss chf -supplemental O2 to maintain O2 sat >92% -as above -medical management 4. Macrocytic anemia: h/h stable, no further bleed noted -monitor and transfuse as needed 5. Leukocytosis: -monitor and trend 6. Hypertension: -medical management -continue HD 7. Hypoalbuminemia:Likely nutritional, min improved -optimize nutrition 8. Pericardial effusion with pleural effusion; poss chf -diuresis -hd -per cardiology 9. Hyponatremia: -judicious fluids Patient seen and examined in collaboration with Dr. Alex Frazier. Thank you. Problems: Subjective 24 Hr Interval Summary Spoke with radiologist today regarding fluid collection seen on ultrasound. A correction on the read was made and there is no drainable fluid collection ( fluid same size as previous read on CT). RLQ incision site bleed stopped. No other bleed noted. No fevers, chills, sob, cp, palpitations, abd pain, n/v/d/ dysuria. Tolerating diet. Exam/Review of Systems Vital Signs Vitals Vital Signs Date Time Temp Pulse Resp B/P Pulse Ox O2 Delivery O2 Flow Rate FiO2 05/20/17 08:09 4.0 05/20/17 07:59 Nasal Cannula 05/20/17 07:55 98.8 93 18 130/62 92 05/19/17 07:30 36 Intake and Output 05/19/17 05/19/17 05/20/17 15:00 23:00 07:00 Intake Total 500 ml 1613.75 ml 480 ml Output Total 4500 ml 0 ml Balance -4000 ml 1613.75 ml 480 ml Exam Free Text/Dictation Constitutional: alert, oriented Psych: anxious Head: atraumatic, normocephalic Eyes: nl lids, nl sclera ENMT: No mucosa pink and moist (dry) Neck: non-tender, supple Respiratory: diminished, crackles; supplemental O2No congested cough Cardiovascular: regular rate and rhythm No edema Gastrointestinal: bowel sounds, soft, radha-incision tenderness improved. Right lower quad bleed s/p ultrasound; controlled. Sutures in place. Other incisions dry. No distended Genitourinary - Female: nl external genitalia Musculoskeletal: nl gait and stance, No muscle weakness Extremities: normal pulses, TANIA: fistula +thrill/bruit No edema Neurological: nl mental status, nl speech, nl strength Skin: No rash or lesions, dry Lymph: No nl lymph nodes Results Result Diagram: 05/20/17 0623 05/20/17 0623 [place] ANDRADE NP May 20, 2017 08:29
--- NOTE | 2017-05-20 12:21 | CONS ---
Date/Time of Note Date/Time of Note DATE: 05/20/17 TIME: 12:15 Assessment/Plan Assessment/Plan Chief Complaint/Hosp Course 1) Acute acalculous cholecystitis s/p laparoscopic cholecystectomy on 05/11 and liver wedge biopsy for hepatomegaly now with post-surgical fluid collection in the GB fossa associated with transient bump in WBC and worsening symptomatic pleuritic CP and SOB. The fluid collection on the CT does not appear to be well organized at this time to suggest an abscess and I agree with no drainage at this time. However, it is very likely infected as the GB was removed infected and there would have been some leaking of infected bile ducts at the time of the surgery. The most likely organisms are Enterococcus, E coli, Klebsiella, Streptococci and potentially yeast. Blood cultures have been unrevealing which is expected. Doing better overnight, with continued improvement in the WBC. No positive cultures. 05/17 - despite CXR with air bronchograms, pt does not exhibit overt signs of pneumonia overall improved, continue with unasyn, to get dialysis today if fevers or WBC an issue will need to broaden coverage for possible HCAP will check nasal for MRSA repeat CXR is pending 05/18 - low grade temp but no chills or sweats CXR has less signs of fluid overload wbc is slowly decreasing doubt aspiration of abd fluid is needed 05/19 - pt has mainly RUQ pain no N, V will order RUQ u/s to check status of fluid collection, if enlarging then aspiration and drainage will likely be necessary WBC is slowly rising 05/20 - fluid collection GB fossa is smaller after re-examination by radiology continue with just the unasyn 2. ESRD on HD via LUE fistula, 3x weekly with probable mild chronic volume overload exacerbated by the surgery and acute infection/inflammatory state of the gallbladder manifest as increased bilateral pleural effusions with compressive atelectasis and pericardial effusion. Improved respiratory status after 3.5L of fluid removed with HD today. 05/17 - pt to get dialysis today and repeat CXR 3. History of lupus, per patient has been quiescent for some time 4. CAD with prior history and elevated troponins on admission, per Dr. Spencer. 5. bilateral infiltrate/effusion (L>R) air bronchograms are noted 05/17 - pt to get repeat CXR this a.m. pt seems to be improved on unasyn but if fever and WBC becomes an issue may need to broaden coverage for possible HCAP 05/18 - WBC continues to slowly improving and pt feeling better, no cough CXR shows less fluid overload Problems: Consultation Date/Type/Reason Admit Date/Time May 05, 2017 at 18:31 Initial Consult Date 05/15/17 Type of Consultation: ID Referring Provider: REMI SIMPSON MD 24 HR Interval Summary Free Text/Dictation pt states abd pain is better this afternoon no N, V, D breathing is better, she can walk w/o oxygen but when she comes back she puts it back on Exam/Review of Systems Vital Signs Vitals Vital Signs Date Time Temp Pulse Resp B/P Pulse Ox O2 Delivery O2 Flow Rate FiO2 05/20/17 08:09 4.0 05/20/17 07:59 Nasal Cannula 05/20/17 07:55 98.8 93 18 130/62 92 05/19/17 07:30 36 Intake and Output 05/19/17 05/19/17 05/20/17 14:59 22:59 06:59 Intake Total 500 ml 1613.75 ml 480 ml Output Total 4500 ml 0 ml Balance -4000 ml 1613.75 ml 480 ml Exam Constitutional: alert, oriented Eyes: nl sclera ENMT: mucosa pink and moist Respiratory: other (L base crackles and decreased BS at R base) Cardiovascular: regular rate and rhythm Results Result Diagram: 05/20/1723 05/20/17 0623 Results 24 hrs Laboratory Tests Test 05/19/17 17:43 05/20/17 06:23 White Blood Count 12.7 H 12.4 H Red Blood Count 3.04 L 2.80 L Hemoglobin 9.5 L 8.6 L Hematocrit 30.1 L 27.7 L Mean Corpuscular Volume 99.0 98.9 Mean Corpuscular Hemoglobin 31.3 30.7 Mean Corpuscular Hemoglobin Concent 31.6 L 31.0 L Red Cell Distribution Width 16.9 H 16.8 H Platelet Count 434 H 406 Mean Platelet Volume 10.9 H 11.1 H Neutrophils % 83.2 H 80.4 H Lymphocytes % 4.3 L 6.9 L Monocytes % 11.3 H 11.3 H Eosinophils % 0.1 0.3 Basophils % 0.4 0.5 Nucleated Red Blood Cells % 0.0 0.0 Neutrophils # (Manual) 10.6 H 10.0 H Lymphocytes # 0.6 L 0.9 Monocytes # 1.4 H 1.4 H Eosinophils # 0.0 0.0 Basophils # 0.1 0.1 Nucleated Red Blood Cells # 0.0 0.0 Prothrombin Time 14.2 Prothrombin Time Ratio 1.1 INR International Normalized Ratio 1.10 Amylase Level 82 Lipase 48 Sodium Level 131 L Potassium Level 4.3 Chloride Level 94 L Carbon Dioxide Level 27 Anion Gap 14 Blood Urea Nitrogen 35 #H Creatinine 6.85 H Glucose Level 88 Calcium Level 8.7 Total Bilirubin 0.0 L Direct Bilirubin 0.00 Indirect Bilirubin 0.0 Aspartate Amino Transf (AST/SGOT) 25 Alanine Aminotransferase (ALT/SGPT) 10 L Alkaline Phosphatase 535 H Total Protein 7.4 Albumin 3.0 L Globulin 4.40 H Albumin/Globulin Ratio 0.68 Medications Medications Current Medications Amlodipine Besylate (Norvasc) 5 mg BID PO Last administered on 05/20/17 08:38; Admin Dose 5 MG; Start 05/06/17 at 09:00 Atorvastatin Calcium (Lipitor) 20 mg QHS PO Last administered on 05/19/17 20:41 ; Admin Dose 20 MG; Start 05/06/17 at 21:00 Carvedilol (Coreg) 25 mg BID PO Last administered on 05/20/17 08:37; Admin Dose 25 MG; Start 05/06/17 at 09:00 Cinacalcet (Sensipar) 60 mg DAILY PO Last administered on 05/20/17 08:37; Admin Dose 60 MG; Start 05/06/17 at 09:00 Diphenhydramine HCl (Benadryl) 50 mg Q12H PRN PO ITCHING Last administered on 05:40; Admin Dose 50 MG; Start 05/06/17 at 00:00 Docusate Sodium (Colace) 100 mg BID PRN PO CONSTIPATION Last administered on 20:06; Admin Dose 100 MG; Start 05/06/17 at 00:00 Folic Acid (Folic Acid) 1 mg DAILY PO Last administered on 05/20/17 08:38; Admin Dose 1 MG; Start 05/06/17 at 09:00 Lanthanum Carbonate (Fosrenol) 500 mg TID PO Last administered on 05/20/17 08: 38; Admin Dose 500 MG; Start 05/06/17 at 09:00 Losartan Potassium (Cozaar) 50 mg BID PO Last administered on 05/20/17 08:37; Admin Dose 50 MG; Start 05/06/17 at 09:00 Pantoprazole (Protonix Tab) 40 mg DAILY@06 PO Last administered on 05/20/17 05: 35; Admin Dose 40 MG; Start 05/06/17 at 06:00 Acetaminophen (Tylenol Tab) 650 mg Q6H PRN PO PAIN LEVEL 1-3 OR FEVER; Start at 00:00 Acetaminophen (Tylenol Supp) 650 mg Q6H PRN [place] PAIN LEVEL 1-3 OR FEVER; Start 05/06/17 at 00:00 Acetaminophen/ Hydrocodone Bitart ([place] (5/325)) 1 tab Q6H PRN PO MODERATE PAIN LEVEL 4-6 Last administered on 05/13/17 09:02; Admin Dose 1 TAB; Start at 00:00 Bisacodyl (Dulcolax) 5 mg DAILY PRN PO CONSTIPATION; Start 05/06/17 at 00:00 Ondansetron HCl 4 mg 4 mg Q4H PRN IV NAUSEA AND/OR VOMITING Last administered on 05/20/17 09:02; Admin Dose 4 MG; Start 05/06/17 at 15:00 Sodium Chloride (NS) 1,000 ml @ 0 mls/hr Q0M PRN IV TO KEEP SBP ABOVE 90; Start 05/06/17 at 17:42 Diphenhydramine HCl (Benadryl) 25 mg QHS PRN IV INSOMNIA Last administered on 00:36; Admin Dose 25 MG; Start 05/08/17 at 12:30 Hydromorphone HCl (Dilaudid) 1 mg Q4H PRN IV SEVERE PAIN LEVEL 7-10 Last administered on 05/20/17 10:23; Admin Dose 1 MG; Start 05/09/17 at 16:00 Oxycodone/ Acetaminophen (Percocet (5/ 325)) 1 tab Q4H PRN PO PAIN Last administered on 05/18/17 11:29; Admin Dose 1 TAB; Start 05/13/17 at 09:30 Hydralazine HCl (Apresoline) 100 mg Q8 PO Last administered on 05/20/17 05:35; Admin Dose 100 MG; Start 05/13/17 at 22:00 Enoxaparin Sodium 30 mg 30 mg Q24H SC Last administered on 05/18/17 15:14; Admin Dose 30 MG; Start 05/14/17 at 14:00; Status Future Hold Ampicillin Sodium/ Sulbactam Sodium (Unasyn 3gm/NS (Pmx)) 100 ml @ 100 mls/hr QPM IVPB Last administered on 05/19/17 20:40; Admin Dose 100 MLS/HR; Start 05/15 at 21:00 Diphenhydramine HCl (Benadryl) 25 mg Q6H PRN IV PRURITUS Last administered on 20:44; Admin Dose 25 MG; Start 05/19/17 at 11:00 SIA CALDERÓN MD May 20, 2017 12:21
[2017-05-20 15:00] VITALS: BP 132/70; RESP 20
--- NOTE | 2017-05-20 17:11 | PN ---
Date/Time of Note Date/Time of Note DATE: 05/20/17 TIME: 17:09 Assessment/Plan VTE Prophylaxis VTE Prophylaxis Intervention: other Lines/Catheters IV Catheter Type (from [facility]): Saline Lock Urinary Cath still in place: No Assessment/Plan Chief Complaint/Hosp Course 1. Acalculous cholecystitis s/p ,Lap marvin with some fluid collection 2 Pneumonia o 3 Hyperkalemia hx 4 ESRD on HD M/W/F 5 Elevated Troponin? ACS however in ESRD +elevated trop however nuclear stress test negative 6 HTN 7Cardiomyopathy 8 ABD SITE BLEEDING stopped plan per id hd am Problems: Subjective 24 Hr Interval Summary Respiratory: shortness of breath (+) Exam/Review of Systems Vital Signs Vitals Vital Signs Date Time Temp Pulse Resp B/P Pulse Ox O2 Delivery O2 Flow Rate FiO2 05/20/17 15:00 98.1 88 20 132/70 93 05/20/17 14:38 Nasal Cannula 4.0 05/19/17 07:30 36 Intake and Output 05/19/17 05/19/17 05/20/17 15:00 23:00 07:00 Intake Total 500 ml 1613.75 ml 480 ml Output Total 4500 ml 0 ml Balance -4000 ml 1613.75 ml 480 ml Exam Neck: supple Respiratory: diminished breath sounds Cardiovascular: regular rate and rhythm Gastrointestinal: bowel sounds (+), other (no bleeding+), soft Extremities: edema (+) Results Result Diagram: 05/20/17 0623 05/20/17 0623 Results 24 hrs Laboratory Tests Test 05/19/17 17:43 05/20/17 06:23 White Blood Count 12.7 H 12.4 H Red Blood Count 3.04 L 2.80 L Hemoglobin 9.5 L 8.6 L Hematocrit 30.1 L 27.7 L Mean Corpuscular Volume 99.0 98.9 Mean Corpuscular Hemoglobin 31.3 30.7 Mean Corpuscular Hemoglobin Concent 31.6 L 31.0 L Red Cell Distribution Width 16.9 H 16.8 H Platelet Count 434 H 406 Mean Platelet Volume 10.9 H 11.1 H Neutrophils % 83.2 H 80.4 H Lymphocytes % 4.3 L 6.9 L Monocytes % 11.3 H 11.3 H Eosinophils % 0.1 0.3 Basophils % 0.4 0.5 Nucleated Red Blood Cells % 0.0 0.0 Neutrophils # (Manual) 10.6 H 10.0 H Lymphocytes # 0.6 L 0.9 Monocytes # 1.4 H 1.4 H Eosinophils # 0.0 0.0 Basophils # 0.1 0.1 Nucleated Red Blood Cells # 0.0 0.0 Prothrombin Time 14.2 Prothrombin Time Ratio 1.1 INR International Normalized Ratio 1.10 Amylase Level 82 Lipase 48 Sodium Level 131 L Potassium Level 4.3 Chloride Level 94 L Carbon Dioxide Level 27 Anion Gap 14 Blood Urea Nitrogen 35 #H Creatinine 6.85 H Glucose Level 88 Calcium Level 8.7 Total Bilirubin 0.0 L Direct Bilirubin 0.00 Indirect Bilirubin 0.0 Aspartate Amino Transf (AST/SGOT) 25 Alanine Aminotransferase (ALT/SGPT) 10 L Alkaline Phosphatase 535 H Total Protein 7.4 Albumin 3.0 L Globulin 4.40 H Albumin/Globulin Ratio 0.68 Medications Medications Current Medications Amlodipine Besylate (Norvasc) 5 mg BID PO Last administered on 05/20/17 08:38; Admin Dose 5 MG; Start 05/06/17 at 09:00 Atorvastatin Calcium (Lipitor) 20 mg QHS PO Last administered on 05/19/17 20:41 ; Admin Dose 20 MG; Start 05/06/17 at 21:00 Carvedilol (Coreg) 25 mg BID PO Last administered on 05/20/17 08:37; Admin Dose 25 MG; Start 05/06/17 at 09:00 Cinacalcet (Sensipar) 60 mg DAILY PO Last administered on 05/20/17 08:37; Admin Dose 60 MG; Start 05/06/17 at 09:00 Diphenhydramine HCl (Benadryl) 50 mg Q12H PRN PO ITCHING Last administered on 05:40; Admin Dose 50 MG; Start 05/06/17 at 00:00 Docusate Sodium (Colace) 100 mg BID PRN PO CONSTIPATION Last administered on 20:06; Admin Dose 100 MG; Start 05/06/17 at 00:00 Folic Acid (Folic Acid) 1 mg DAILY PO Last administered on 05/20/17 08:38; Admin Dose 1 MG; Start 05/06/17 at 09:00 Lanthanum Carbonate (Fosrenol) 500 mg TID PO Last administered on 05/20/17 12: 38; Admin Dose 500 MG; Start 05/06/17 at 09:00 Losartan Potassium (Cozaar) 50 mg BID PO Last administered on 05/20/17 08:37; Admin Dose 50 MG; Start 05/06/17 at 09:00 Pantoprazole (Protonix Tab) 40 mg DAILY@06 PO Last administered on 05/20/17 05: 35; Admin Dose 40 MG; Start 05/06/17 at 06:00 Acetaminophen (Tylenol Tab) 650 mg Q6H PRN PO PAIN LEVEL 1-3 OR FEVER; Start at 00:00 Acetaminophen (Tylenol Supp) 650 mg Q6H PRN [place] PAIN LEVEL 1-3 OR FEVER; Start 05/06/17 at 00:00 Acetaminophen/ Hydrocodone Bitart ([place] (5/325)) 1 tab Q6H PRN PO MODERATE PAIN LEVEL 4-6 Last administered on 05/13/17 09:02; Admin Dose 1 TAB; Start at 00:00 Bisacodyl (Dulcolax) 5 mg DAILY PRN PO CONSTIPATION; Start 05/06/17 at 00:00 Ondansetron HCl 4 mg 4 mg Q4H PRN IV NAUSEA AND/OR VOMITING Last administered on 05/20/17 13:04; Admin Dose 4 MG; Start 05/06/17 at 15:00 Sodium Chloride (NS) 1,000 ml @ 0 mls/hr Q0M PRN IV TO KEEP SBP ABOVE 90; Start 05/06/17 at 17:42 Diphenhydramine HCl (Benadryl) 25 mg QHS PRN IV INSOMNIA Last administered on 00:36; Admin Dose 25 MG; Start 05/08/17 at 12:30 Hydromorphone HCl (Dilaudid) 1 mg Q4H PRN IV SEVERE PAIN LEVEL 7-10 Last administered on 05/20/17 14:35; Admin Dose 1 MG; Start 05/09/17 at 16:00 Oxycodone/ Acetaminophen (Percocet (5/ 325)) 1 tab Q4H PRN PO PAIN Last administered on 05/18/17 11:29; Admin Dose 1 TAB; Start 05/13/17 at 09:30 Hydralazine HCl (Apresoline) 100 mg Q8 PO Last administered on 05/20/17 15:32; Admin Dose 100 MG; Start 05/13/17 at 22:00 Enoxaparin Sodium 30 mg 30 mg Q24H SC Last administered on 05/18/17 15:14; Admin Dose 30 MG; Start 05/14/17 at 14:00; Status Future Hold Ampicillin Sodium/ Sulbactam Sodium (Unasyn 3gm/NS (Pmx)) 100 ml @ 100 mls/hr QPM IVPB Last administered on 05/19/17 20:40; Admin Dose 100 MLS/HR; Start 05/15 at 21:00 Diphenhydramine HCl (Benadryl) 25 mg Q6H PRN IV PRURITUS Last administered on 20:44; Admin Dose 25 MG; Start 05/19/17 at 11:00 REMI SIMPSON MD May 20, 2017 17:11
--- NOTE | 2017-05-20 18:22 | CONS ---
Date/Time of Note Date/Time of Note DATE: 05/20/17 TIME: 18:20 Assessment/Plan Assessment/Plan Chief Complaint/Hosp Course IMPRESSION: 1. Positive troponin in the setting of renal failure with a history of nonischemic cardiomyopathy by catheterization December 2015, thus likely a marker of chronic cardiomyopathy more than suggestive of acute coronary syndrome.-minimal uptrend/NO cp/no ischemia by lexiscan this admission 2. Cardiomyopathy with decreased left ventricular ejection fraction 40% by mot recent echo 3. Hypertension-reasonable control 4. Dyslipidemia. 5. Acute cholecystitis. Now post-op s/p Lap marvin with mary revealing possible hematoma collection 6. Endstage renal dialysis on hemodialysis. 7. Anemia. 8. Hyperkalemia-improved 9. CHF-systolic acute on chronic Recc: -Continue coreg/norvasc/hydralazine -continue statin/asa -HD for volume removal aggresively -Follow surgical site of recurrent bleeding Problems: Consultation Date/Type/Reason Admit Date/Time May 05, 2017 at 18:31 Initial Consult Date 05/06/17 Type of Consultation: cardiology Reason for Consultation positive troponin Referring Provider: REMI SIMPSON MD Exam/Review of Systems Vital Signs Vitals Vital Signs Date Time Temp Pulse Resp B/P Pulse Ox O2 Delivery O2 Flow Rate FiO2 05/20/17 15:00 98.1 88 20 132/70 93 05/20/17 14:38 Nasal Cannula 4.0 05/19/17 07:30 36 Intake and Output 05/19/17 05/19/17 05/20/17 15:00 23:00 07:00 Intake Total 500 ml 1613.75 ml 480 ml Output Total 4500 ml 0 ml Balance -4000 ml 1613.75 ml 480 ml Exam Review of Systems: CONSTITUTIONAL: No fevers, chills. PULMONARY: No sob CARDIOVASCULAR: No chest pain/palpitations GASTROINTESTINAL: mild abd pain GENITOURINARY: No hematuria/dysuria. MUSCULOSKELETAL: No myagias/arthalgias. PSYCHIATRIC: The patient denies depression. NEUROLOGIC: No weakness Constitutional: other (sleeping, arousable) Psych: no complaints Head: normocephalic ENMT: mucosa pink and moist Neck: jvd (98 cm water), supple Respiratory: diminished breath sounds (at bases/B) Cardiovascular: regular rate and rhythm Gastrointestinal: soft, tender (mild to palpation) Musculoskeletal: muscle tone (normal) Extremities: edema (trace bilateral) Neurological: lethargic Results Result Diagram: 05/20/1723 05/20/17 0623 Results 24 hrs Laboratory Tests Test 05/20/17 06:23 White Blood Count 12.4 H Red Blood Count 2.80 L Hemoglobin 8.6 L Hematocrit 27.7 L Mean Corpuscular Volume 98.9 Mean Corpuscular Hemoglobin 30.7 Mean Corpuscular Hemoglobin Concent 31.0 L Red Cell Distribution Width 16.8 H Platelet Count 406 Mean Platelet Volume 11.1 H Neutrophils % 80.4 H Lymphocytes % 6.9 L Monocytes % 11.3 H Eosinophils % 0.3 Basophils % 0.5 Nucleated Red Blood Cells % 0.0 Neutrophils # (Manual) 10.0 H Lymphocytes # 0.9 Monocytes # 1.4 H Eosinophils # 0.0 Basophils # 0.1 Nucleated Red Blood Cells # 0.0 Sodium Level 131 L Potassium Level 4.3 Chloride Level 94 L Carbon Dioxide Level 27 Anion Gap 14 Blood Urea Nitrogen 35 #H Creatinine 6.85 H Glucose Level 88 Calcium Level 8.7 Total Bilirubin 0.0 L Direct Bilirubin 0.00 Indirect Bilirubin 0.0 Aspartate Amino Transf (AST/SGOT) 25 Alanine Aminotransferase (ALT/SGPT) 10 L Alkaline Phosphatase 535 H Total Protein 7.4 Albumin 3.0 L Globulin 4.40 H Albumin/Globulin Ratio 0.68 Medications Medications Current Medications Amlodipine Besylate (Norvasc) 5 mg BID PO Last administered on 05/20/17 08:38; Admin Dose 5 MG; Start 05/06/17 at 09:00 Atorvastatin Calcium (Lipitor) 20 mg QHS PO Last administered on 05/19/17 20:41 ; Admin Dose 20 MG; Start 05/06/17 at 21:00 Carvedilol (Coreg) 25 mg BID PO Last administered on 05/20/17 08:37; Admin Dose 25 MG; Start 05/06/17 at 09:00 Cinacalcet (Sensipar) 60 mg DAILY PO Last administered on 05/20/17 08:37; Admin Dose 60 MG; Start 05/06/17 at 09:00 Diphenhydramine HCl (Benadryl) 50 mg Q12H PRN PO ITCHING Last administered on 05:40; Admin Dose 50 MG; Start 05/06/17 at 00:00 Docusate Sodium (Colace) 100 mg BID PRN PO CONSTIPATION Last administered on 20:06; Admin Dose 100 MG; Start 05/06/17 at 00:00 Folic Acid (Folic Acid) 1 mg DAILY PO Last administered on 05/20/17 08:38; Admin Dose 1 MG; Start 05/06/17 at 09:00 Lanthanum Carbonate (Fosrenol) 500 mg TID PO Last administered on 05/20/17 12: 38; Admin Dose 500 MG; Start 05/06/17 at 09:00 Losartan Potassium (Cozaar) 50 mg BID PO Last administered on 05/20/17 08:37; Admin Dose 50 MG; Start 05/06/17 at 09:00 Pantoprazole (Protonix Tab) 40 mg DAILY@06 PO Last administered on 05/20/17 05: 35; Admin Dose 40 MG; Start 05/06/17 at 06:00 Acetaminophen (Tylenol Tab) 650 mg Q6H PRN PO PAIN LEVEL 1-3 OR FEVER; Start at 00:00 Acetaminophen (Tylenol Supp) 650 mg Q6H PRN [place] PAIN LEVEL 1-3 OR FEVER; Start 05/06/17 at 00:00 Acetaminophen/ Hydrocodone Bitart ([place] (5/325)) 1 tab Q6H PRN PO MODERATE PAIN LEVEL 4-6 Last administered on 05/13/17 09:02; Admin Dose 1 TAB; Start at 00:00 Bisacodyl (Dulcolax) 5 mg DAILY PRN PO CONSTIPATION; Start 05/06/17 at 00:00 Ondansetron HCl 4 mg 4 mg Q4H PRN IV NAUSEA AND/OR VOMITING Last administered on 05/20/17 13:04; Admin Dose 4 MG; Start 05/06/17 at 15:00 Sodium Chloride (NS) 1,000 ml @ 0 mls/hr Q0M PRN IV TO KEEP SBP ABOVE 90; Start 05/06/17 at 17:42 Diphenhydramine HCl (Benadryl) 25 mg QHS PRN IV INSOMNIA Last administered on 00:36; Admin Dose 25 MG; Start 05/08/17 at 12:30 Hydromorphone HCl (Dilaudid) 1 mg Q4H PRN IV SEVERE PAIN LEVEL 7-10 Last administered on 05/20/17 14:35; Admin Dose 1 MG; Start 05/09/17 at 16:00 Oxycodone/ Acetaminophen (Percocet (5/ 325)) 1 tab Q4H PRN PO PAIN Last administered on 05/18/17 11:29; Admin Dose 1 TAB; Start 05/13/17 at 09:30 Hydralazine HCl (Apresoline) 100 mg Q8 PO Last administered on 05/20/17 15:32; Admin Dose 100 MG; Start 05/13/17 at 22:00 Enoxaparin Sodium 30 mg 30 mg Q24H SC Last administered on 05/18/17 15:14; Admin Dose 30 MG; Start 05/14/17 at 14:00; Status Future Hold Ampicillin Sodium/ Sulbactam Sodium (Unasyn 3gm/NS (Pmx)) 100 ml @ 100 mls/hr QPM IVPB Last administered on 05/19/17 20:40; Admin Dose 100 MLS/HR; Start 05/15 at 21:00 Diphenhydramine HCl (Benadryl) 25 mg Q6H PRN IV PRURITUS Last administered on 20:44; Admin Dose 25 MG; Start 05/19/17 at 11:00 DEONNA DENT May 20, 2017 18:22
[2017-05-20 19:47] VITALS: BP 140/82; RESP 18
[2017-05-20] MEDS: AMPICILLIN/SULB 3 GM/NS (PMX) 100 ML IVPB SCH (21:21)
[2017-05-20] MEDS: ATORVASTATIN 20 MG TAB PO SCH (21:23)
[2017-05-20 21:25] VITALS: BP 136/64; PULSE 90
[2017-05-20] MEDS: DIPHENHYDRAMINE 50 MG INJ IV PRN (21:52)
[2017-05-20 22:35] VITALS: BP 133/61; PULSE 87
[2017-05-21] VITALS (14 sets, daily range): BP systolic 121–166; BP diastolic 62–78; PULSE 75–88; RESP 18–19
[2017-05-21] MEDS: ALBUTEROL 0.083% (NEB) 2.5 MG/3 ML AMP HHN SCH ×4 (01:30→20:05)
[2017-05-21] MEDS: IPRATROPIUM (NEB) 0.5 MG/2.5 ML AMP HHN SCH ×4 (01:30→20:05)
[2017-05-21] MEDS: HYDROmorphONE 1 MG/ML SYG IV PRN ×6 (01:46→23:15)
[2017-05-21] MEDS: PANTOPRAZOLE (EC) 40 MG TAB PO SCH (05:53)
[2017-05-21 06:43] LABS: BASOPHILS % 0.3 % (0.0-2.0); EOSINOPHILS # 0.1 10^3/ul (0.0-0.5); EOSINOPHILS % 0.5 % (0.0-7.0); HEMATOCRIT 24.5 % (37.0-47.0); HEMOGLOBIN 7.9 g/dl (12.0-16.0); LYMPHOCYTES # 0.9 10^3/ul (0.8-2.9); LYMPHOCYTES % 6.8 % (15.0-51.0); MEAN CORPUSCULAR HEMOGLOBIN 31.9 pg (29.0-33.0); MEAN CORPUSCULAR HGB CONC 32.2 g/dl (32.0-37.0); MEAN CORPUSCULAR VOLUME 98.8 fl (82.0-101.0); MEAN PLATELET VOLUME 11.2 fl (7.4-10.4); MONOCYTE # 1.3 10^3/ul (0.3-0.9); NEUTROPHILS % 81.7 % (39.0-77.0); PLATELET COUNT 414 10^3/UL (140-415); RED BLOOD COUNT 2.48 10^6/ul (4.20-5.40); RED CELL DISTRIBUTION WIDTH 16.7 % (11.5-14.5); WHITE BLOOD COUNT 13.4 10^3/ul (4.8-10.8)
[2017-05-21 07:16] LABS: ALBUMIN/GLOBULIN RATIO 0.68; CALCIUM 8.3 mg/dl (8.4-10.2); CREATININE 8.86 mg/dl (0.44-1.00); POTASSIUM 4.4 mmol/L (3.5-5.1); TOTAL PROTEIN 7.4 g/dl (6.1-8.1)
--- NOTE | 2017-05-21 08:15 | PN ---
Date/Time of Note Date/Time of Note DATE: 05/21/17 TIME: 07:57 Assessment/Plan Lines/Catheters IV Catheter Type (from [facility]): Saline Lock Cerda in Place (from [facility]): No Assessment/Plan Chief Complaint/Hosp Course 1.Acalculous Cholecystitis: s/p lap marvin; abdominal pain improved; however now with SOB and need for supplemental O2 as well as worsening leukocytosis: pleural and pericardial effusion.; amylase/lipase nl; CT noted with small fluid collection-not drainable per radiologist; US abdomen noted, CT guided drainage not done- correction was made on the read, no drainable fluid collection. -increase ambulation as tolerated -IS-patient must use -Ice pack to abdominal wall; -pain management -abx per id 2. ESRD with HD -continue medical management 3.Shortness of breath and intermittent use of supplemental oxygen :CT noted with pleural and pericardial effusion. cxr: chf -supplemental O2 to maintain O2 sat >92% -as above -medical management 4. Macrocytic anemia: h/h stable, no further bleed noted -monitor and transfuse as needed 5. Leukocytosis: wbc increasing -monitor and trend 6. Hypertension: -medical management -continue HD 7. Hypoalbuminemia:Likely nutritional, min improved -optimize nutrition 8. Pericardial effusion with pleural effusion; chf -diuresis -hd -per cardiology 9. Hyponatremia: -judicious fluids 10. UTI: no dysuria: urine from 05/18 with bacteria but no sensitivities. Will resend ua -abx per sensitivity Patient seen and examined in collaboration with Dr. Alex Frazier. Thank you. Problems: Subjective 24 Hr Interval Summary Feeling much better. Intermittent SOB and use of supplemental oxygen. No pain, fevers, chills, cp, palpitations, chavarria, dizziness, n/v/d/dysuria. WBC increasing. HD pending today. +bowel function. Exam/Review of Systems Vital Signs Vitals Vital Signs Date Time Temp Pulse Resp B/P Pulse Ox O2 Delivery O2 Flow Rate FiO2 05/21/17 07:45 98.1 88 18 137/63 91 05/21/17 07:26 4.0 05/21/17 07:26 Nasal Cannula 05/19/17 07:30 36 Intake and Output 05/20/17 05/20/17 05/21/17 15:00 23:00 07:00 Intake Total 600 ml 520 ml Output Total 100 ml Balance 500 ml 520 ml Exam Free Text/Dictation Constitutional: alert, oriented Psych: anxious Head: atraumatic, normocephalic Eyes: nl lids, nl sclera ENMT: No mucosa pink and moist (dry) Neck: non-tender, supple Respiratory: diminished, crackles; supplemental O2 Cardiovascular: regular rate and rhythm No edema Gastrointestinal: bowel sounds, soft, radha-incision tenderness improved. Right lower quad sutures in place. Other incisions dry. No distended Genitourinary - Female: nl external genitalia Musculoskeletal: nl gait and stance, No muscle weakness, BLE no swelling Extremities: normal pulses, TANIA: fistula +thrill/bruit No edema Neurological: nl mental status, nl speech, nl strength Skin: No rash or lesions, dry Lymph: No nl lymph nodes Results Result Diagram: 05/21/17 0507 05/21/17 0506 NJ ANDRADE NP May 21, 2017 08:07
[2017-05-21] MEDS: LOSARTAN 50 MG TAB PO SCH ×2 (09:00→21:04)
[2017-05-21] MEDS: LANTHANUM 500 MG CHEW PO SCH ×3 (09:00→21:03)
[2017-05-21] MEDS: FOLIC ACID 1 MG TAB PO SCH (09:25)
[2017-05-21] MEDS: CINACALCET 30 MG TAB PO SCH (09:25)
[2017-05-21] MEDS: SEVELAMER CARBONATE 0.8 GM PKT PO SCH ×3 (09:26→17:35)
[2017-05-21] MEDS: AMLODIPINE 5 MG TAB PO SCH ×2 (09:52→21:04)
[2017-05-21] MEDS: ONDANSETRON 4 MG INJ IV PRN ×4 (10:27→23:16)
--- NOTE | 2017-05-21 11:05 | PN ---
Date/Time of Note Date/Time of Note DATE: 05/21/17 TIME: 11:03 Assessment/Plan VTE Prophylaxis VTE Prophylaxis Intervention: ambulation Lines/Catheters IV Catheter Type (from [facility]): Saline Lock Urinary Cath still in place: No Assessment/Plan Chief Complaint/Hosp Course 1. Acalculous cholecystitis, s/p lap cholecystectomy, 2. Hyperkalemia, better 3. ESRD on HD M/W/F 4. Hx of drug abuse 5. HTN, controlled 6. Anemia 7. Elevated troponin 8. Pleural effusion bilaterally 9. fascial wound Problems: Assessment/Plan 1. FAscial wound care 2. Continue a/b Subjective 24 Hr Interval Summary Constitutional: improved, no complaints Exam/Review of Systems Vital Signs Vitals Vital Signs Date Time Temp Pulse Resp B/P Pulse Ox O2 Delivery O2 Flow Rate FiO2 05/21/17 07:45 98.1 88 18 137/63 91 05/21/17 07:26 4.0 05/21/17 07:26 Nasal Cannula 05/19/17 07:30 36 Intake and Output 05/20/17 05/20/17 05/21/17 15:00 23:00 07:00 Intake Total 600 ml 520 ml Output Total 100 ml Balance 500 ml 520 ml Exam Constitutional: alert, oriented ENMT: nl external ears & nose, other (face wound) Neck: supple Cardiovascular: regular rate and rhythm Gastrointestinal: soft Results Result Diagram: 05/21/17 0507 05/21/17 0506 Results 24 hrs Laboratory Tests Test 05/21/17 05:06 05/21/17 05:07 Sodium Level 131 L Potassium Level 4.4 Chloride Level 92 L Carbon Dioxide Level 25 Anion Gap 18 H Blood Urea Nitrogen 49 #H Creatinine 8.86 #H Glucose Level 73 Calcium Level 8.3 L Total Bilirubin 0.0 L Direct Bilirubin 0.00 Indirect Bilirubin 0.0 Aspartate Amino Transf (AST/SGOT) 22 Alanine Aminotransferase (ALT/SGPT) 21 Alkaline Phosphatase 571 H Total Protein 7.4 Albumin 3.0 L Globulin 4.40 H Albumin/Globulin Ratio 0.68 White Blood Count 13.4 H Red Blood Count 2.48 L Hemoglobin 7.9 L Hematocrit 24.5 L Mean Corpuscular Volume 98.8 Mean Corpuscular Hemoglobin 31.9 Mean Corpuscular Hemoglobin Concent 32.2 Red Cell Distribution Width 16.7 H Platelet Count 414 Mean Platelet Volume 11.2 H Neutrophils % 81.7 H Lymphocytes % 6.8 L Monocytes % 10.0 Eosinophils % 0.5 Basophils % 0.3 Nucleated Red Blood Cells % 0.0 Neutrophils # (Manual) 10.9 H Lymphocytes # 0.9 Monocytes # 1.3 H Eosinophils # 0.1 Basophils # 0.0 Nucleated Red Blood Cells # 0.0 Medications Medications Current Medications Amlodipine Besylate (Norvasc) 5 mg BID PO Last administered on 05/21/17 09:52; Admin Dose 5 MG; Start 05/06/17 at 09:00 Atorvastatin Calcium (Lipitor) 20 mg QHS PO Last administered on 05/20/17 21:23 ; Admin Dose 20 MG; Start 05/06/17 at 21:00 Carvedilol (Coreg) 25 mg BID PO Last administered on 05/21/17 09:52; Admin Dose 25 MG; Start 05/06/17 at 09:00 Cinacalcet (Sensipar) 60 mg DAILY PO Last administered on 05/21/17 09:25; Admin Dose 60 MG; Start 05/06/17 at 09:00 Diphenhydramine HCl (Benadryl) 50 mg Q12H PRN PO ITCHING Last administered on 05:40; Admin Dose 50 MG; Start 05/06/17 at 00:00 Docusate Sodium (Colace) 100 mg BID PRN PO CONSTIPATION Last administered on 20:06; Admin Dose 100 MG; Start 05/06/17 at 00:00 Folic Acid (Folic Acid) 1 mg DAILY PO Last administered on 05/21/17 09:25; Admin Dose 1 MG; Start 05/06/17 at 09:00 Lanthanum Carbonate (Fosrenol) 500 mg TID PO Last administered on 05/20/17 21: 23; Admin Dose 500 MG; Start 05/06/17 at 09:00 Losartan Potassium (Cozaar) 50 mg BID PO Last administered on 05/20/17 21:24; Admin Dose 50 MG; Start 05/06/17 at 09:00 Pantoprazole (Protonix Tab) 40 mg DAILY@06 PO Last administered on 05/21/17 05: 53; Admin Dose 40 MG; Start 05/06/17 at 06:00 Acetaminophen (Tylenol Tab) 650 mg Q6H PRN PO PAIN LEVEL 1-3 OR FEVER; Start at 00:00 Acetaminophen (Tylenol Supp) 650 mg Q6H PRN [place] PAIN LEVEL 1-3 OR FEVER; Start 05/06/17 at 00:00 Acetaminophen/ Hydrocodone Bitart ([place] (5/325)) 1 tab Q6H PRN PO MODERATE PAIN LEVEL 4-6 Last administered on 05/13/17 09:02; Admin Dose 1 TAB; Start at 00:00 Bisacodyl (Dulcolax) 5 mg DAILY PRN PO CONSTIPATION; Start 05/06/17 at 00:00 Ondansetron HCl 4 mg 4 mg Q4H PRN IV NAUSEA AND/OR VOMITING Last administered on 05/21/17 10:27; Admin Dose 4 MG; Start 05/06/17 at 15:00 Sodium Chloride (NS) 1,000 ml @ 0 mls/hr Q0M PRN IV TO KEEP SBP ABOVE 90; Start 05/06/17 at 17:42 Diphenhydramine HCl (Benadryl) 25 mg QHS PRN IV INSOMNIA Last administered on 21:52; Admin Dose 25 MG; Start 05/08/17 at 12:30 Hydromorphone HCl (Dilaudid) 1 mg Q4H PRN IV SEVERE PAIN LEVEL 7-10 Last administered on 05/21/17 10:26; Admin Dose 1 MG; Start 05/09/17 at 16:00 Oxycodone/ Acetaminophen (Percocet (5/ 325)) 1 tab Q4H PRN PO PAIN Last administered on 05/18/17 11:29; Admin Dose 1 TAB; Start 05/13/17 at 09:30 Hydralazine HCl (Apresoline) 100 mg Q8 PO Last administered on 05/21/17 05:53; Admin Dose 100 MG; Start 05/13/17 at 22:00 Enoxaparin Sodium 30 mg 30 mg Q24H SC Last administered on 05/18/17 15:14; Admin Dose 30 MG; Start 05/14/17 at 14:00; Status Future Hold Ampicillin Sodium/ Sulbactam Sodium (Unasyn 3gm/NS (Pmx)) 100 ml @ 100 mls/hr QPM IVPB Last administered on 05/20/17 21:21; Admin Dose 100 MLS/HR; Start 05/15 at 21:00 Diphenhydramine HCl (Benadryl) 25 mg Q6H PRN IV PRURITUS Last administered on 20:44; Admin Dose 25 MG; Start 05/19/17 at 11:00 TONY SANDOVAL May 21, 2017 11:05
[2017-05-21] MEDS ORDERED: BACITRACIN/POLYMYXIN 28.35 GM OINT TOP ONE (11:30)
--- NOTE | 2017-05-21 12:36 | CONS ---
Date/Time of Note Date/Time of Note DATE: 05/21/17 TIME: 12:30 Assessment/Plan Assessment/Plan Chief Complaint/Hosp Course 1) Acute acalculous cholecystitis s/p laparoscopic cholecystectomy on 05/11 and liver wedge biopsy for hepatomegaly now with post-surgical fluid collection in the GB fossa associated with transient bump in WBC and worsening symptomatic pleuritic CP and SOB. The fluid collection on the CT does not appear to be well organized at this time to suggest an abscess and I agree with no drainage at this time. However, it is very likely infected as the GB was removed infected and there would have been some leaking of infected bile ducts at the time of the surgery. The most likely organisms are Enterococcus, E coli, Klebsiella, Streptococci and potentially yeast. Blood cultures have been unrevealing which is expected. Doing better overnight, with continued improvement in the WBC. No positive cultures. 05/17 - despite CXR with air bronchograms, pt does not exhibit overt signs of pneumonia overall improved, continue with unasyn, to get dialysis today if fevers or WBC an issue will need to broaden coverage for possible HCAP will check nasal for MRSA repeat CXR is pending 05/18 - low grade temp but no chills or sweats CXR has less signs of fluid overload wbc is slowly decreasing doubt aspiration of abd fluid is needed 05/19 - pt has mainly RUQ pain no N, V will order RUQ u/s to check status of fluid collection, if enlarging then aspiration and drainage will likely be necessary WBC is slowly rising 05/20 - fluid collection GB fossa is smaller after re-examination by radiology continue with just the unasyn 05/21 - pain is improving 2. ESRD on HD via LUE fistula, 3x weekly with probable mild chronic volume overload exacerbated by the surgery and acute infection/inflammatory state of the gallbladder manifest as increased bilateral pleural effusions with compressive atelectasis and pericardial effusion. Improved respiratory status after 3.5L of fluid removed with HD today. 05/17 - pt to get dialysis today and repeat CXR 3. History of lupus, per patient has been quiescent for some time 4. CAD with prior history and elevated troponins on admission, per Dr. Spencer. 5. bilateral infiltrate/effusion (L>R) air bronchograms are noted 05/17 - pt to get repeat CXR this a.m. pt seems to be improved on unasyn but if fever and WBC becomes an issue may need to broaden coverage for possible HCAP 05/18 - WBC continues to slowly improving and pt feeling better, no cough CXR shows less fluid overload 05/21 - wbc is increasing and pt has persistent SOB concern is pt may have HCAP change unasyn to doxy/merrem Problems: Consultation Date/Type/Reason Admit Date/Time May 05, 2017 at 18:31 Initial Consult Date 05/15/17 Type of Consultation: ID Referring Provider: REMI SIMPSON MD 24 HR Interval Summary Free Text/Dictation pt has SOB but pain to R side is getting better no N, V, D tolerating liquids ok Exam/Review of Systems Vital Signs Vitals Vital Signs Date Time Temp Pulse Resp B/P Pulse Ox O2 Delivery O2 Flow Rate FiO2 05/21/17 07:45 98.1 88 18 137/63 91 05/21/17 07:26 4.0 05/21/17 07:26 Nasal Cannula 05/19/17 07:30 36 Intake and Output 05/20/17 05/20/17 05/21/17 15:00 23:00 07:00 Intake Total 600 ml 520 ml Output Total 100 ml Balance 500 ml 520 ml Exam Constitutional: alert, oriented Eyes: nl sclera ENMT: mucosa pink and moist Respiratory: other (crackles and decreased BS at R base) Cardiovascular: regular rate and rhythm Gastrointestinal: non-tender, soft Results Result Diagram: 05/21/17 0507 05/21/17 0506 Results 24 hrs Laboratory Tests Test 05/21/17 05:06 05/21/17 05:07 Sodium Level 131 L Potassium Level 4.4 Chloride Level 92 L Carbon Dioxide Level 25 Anion Gap 18 H Blood Urea Nitrogen 49 #H Creatinine 8.86 #H Glucose Level 73 Calcium Level 8.3 L Total Bilirubin 0.0 L Direct Bilirubin 0.00 Indirect Bilirubin 0.0 Aspartate Amino Transf (AST/SGOT) 22 Alanine Aminotransferase (ALT/SGPT) 21 Alkaline Phosphatase 571 H Total Protein 7.4 Albumin 3.0 L Globulin 4.40 H Albumin/Globulin Ratio 0.68 White Blood Count 13.4 H Red Blood Count 2.48 L Hemoglobin 7.9 L Hematocrit 24.5 L Mean Corpuscular Volume 98.8 Mean Corpuscular Hemoglobin 31.9 Mean Corpuscular Hemoglobin Concent 32.2 Red Cell Distribution Width 16.7 H Platelet Count 414 Mean Platelet Volume 11.2 H Neutrophils % 81.7 H Lymphocytes % 6.8 L Monocytes % 10.0 Eosinophils % 0.5 Basophils % 0.3 Nucleated Red Blood Cells % 0.0 Neutrophils # (Manual) 10.9 H Lymphocytes # 0.9 Monocytes # 1.3 H Eosinophils # 0.1 Basophils # 0.0 Nucleated Red Blood Cells # 0.0 Medications Medications Current Medications Amlodipine Besylate (Norvasc) 5 mg BID PO Last administered on 05/21/17 09:52; Admin Dose 5 MG; Start 05/06/17 at 09:00 Atorvastatin Calcium (Lipitor) 20 mg QHS PO Last administered on 05/20/17 21:23 ; Admin Dose 20 MG; Start 05/06/17 at 21:00 Carvedilol (Coreg) 25 mg BID PO Last administered on 05/21/17 09:52; Admin Dose 25 MG; Start 05/06/17 at 09:00 Cinacalcet (Sensipar) 60 mg DAILY PO Last administered on 05/21/17 09:25; Admin Dose 60 MG; Start 05/06/17 at 09:00 Diphenhydramine HCl (Benadryl) 50 mg Q12H PRN PO ITCHING Last administered on 05:40; Admin Dose 50 MG; Start 05/06/17 at 00:00 Docusate Sodium (Colace) 100 mg BID PRN PO CONSTIPATION Last administered on 20:06; Admin Dose 100 MG; Start 05/06/17 at 00:00 Folic Acid (Folic Acid) 1 mg DAILY PO Last administered on 05/21/17 09:25; Admin Dose 1 MG; Start 05/06/17 at 09:00 Lanthanum Carbonate (Fosrenol) 500 mg TID PO Last administered on 05/20/17 21: 23; Admin Dose 500 MG; Start 05/06/17 at 09:00 Losartan Potassium (Cozaar) 50 mg BID PO Last administered on 05/20/17 21:24; Admin Dose 50 MG; Start 05/06/17 at 09:00 Pantoprazole (Protonix Tab) 40 mg DAILY@06 PO Last administered on 05/21/17 05: 53; Admin Dose 40 MG; Start 05/06/17 at 06:00 Acetaminophen (Tylenol Tab) 650 mg Q6H PRN PO PAIN LEVEL 1-3 OR FEVER; Start at 00:00 Acetaminophen (Tylenol Supp) 650 mg Q6H PRN [place] PAIN LEVEL 1-3 OR FEVER; Start 05/06/17 at 00:00 Acetaminophen/ Hydrocodone Bitart ([place] (5/325)) 1 tab Q6H PRN PO MODERATE PAIN LEVEL 4-6 Last administered on 05/13/17 09:02; Admin Dose 1 TAB; Start at 00:00 Bisacodyl (Dulcolax) 5 mg DAILY PRN PO CONSTIPATION; Start 05/06/17 at 00:00 Ondansetron HCl 4 mg 4 mg Q4H PRN IV NAUSEA AND/OR VOMITING Last administered on 05/21/17 10:27; Admin Dose 4 MG; Start 05/06/17 at 15:00 Sodium Chloride (NS) 1,000 ml @ 0 mls/hr Q0M PRN IV TO KEEP SBP ABOVE 90; Start 05/06/17 at 17:42 Diphenhydramine HCl (Benadryl) 25 mg QHS PRN IV INSOMNIA Last administered on 21:52; Admin Dose 25 MG; Start 05/08/17 at 12:30 Hydromorphone HCl (Dilaudid) 1 mg Q4H PRN IV SEVERE PAIN LEVEL 7-10 Last administered on 05/21/17 10:26; Admin Dose 1 MG; Start 05/09/17 at 16:00 Oxycodone/ Acetaminophen (Percocet (5/ 325)) 1 tab Q4H PRN PO PAIN Last administered on 05/18/17 11:29; Admin Dose 1 TAB; Start 05/13/17 at 09:30 Hydralazine HCl (Apresoline) 100 mg Q8 PO Last administered on 05/21/17 05:53; Admin Dose 100 MG; Start 05/13/17 at 22:00 Enoxaparin Sodium 30 mg 30 mg Q24H SC Last administered on 05/18/17 15:14; Admin Dose 30 MG; Start 05/14/17 at 14:00; Status Future Hold Ampicillin Sodium/ Sulbactam Sodium (Unasyn 3gm/NS (Pmx)) 100 ml @ 100 mls/hr QPM IVPB Last administered on 05/20/17 21:21; Admin Dose 100 MLS/HR; Start 05/15 at 21:00 Diphenhydramine HCl (Benadryl) 25 mg Q6H PRN IV PRURITUS Last administered on 20:44; Admin Dose 25 MG; Start 05/19/17 at 11:00 SIA CALDERÓN MD May 21, 2017 12:35
[2017-05-21] MEDS: MEROPENEM 500MG/50 ML (PMX) 50 ML IVPB SCH (13:53)
[2017-05-21] MEDS: BACITRACIN/POLYMYXIN 28.35 GM OINT TOP SCH ×2 (16:03→21:05)
[2017-05-21] MEDS: DIPHENHYDRAMINE 50 MG INJ IV PRN (16:04)
--- NOTE | 2017-05-21 17:00 | CONS ---
Date/Time of Note Date/Time of Note DATE: 05/21/17 TIME: 16:58 Assessment/Plan Assessment/Plan Chief Complaint/Hosp Course IMPRESSION: 1. Positive troponin in the setting of renal failure with a history of nonischemic cardiomyopathy by catheterization December 2015, thus likely a marker of chronic cardiomyopathy more than suggestive of acute coronary syndrome.-minimal uptrend/NO cp/no ischemia by lexiscan this admission 2. Cardiomyopathy with decreased left ventricular ejection fraction 40% by mot recent echo 3. Hypertension-reasonable control 4. Dyslipidemia. 5. Acute cholecystitis. Now post-op s/p Lap marvin with mary revealing possible hematoma collection 6. Endstage renal dialysis on hemodialysis. 7. Anemia. 8. Hyperkalemia-improved 9. CHF-systolic acute on chronic Recc: -Continue coreg/norvasc/hydralazine with reasonable BP control -continue statin/asa -HD for volume removal aggresively -Follow surgical site of recurrent bleeding and give routine post-op care Problems: Consultation Date/Type/Reason Admit Date/Time May 05, 2017 at 18:31 Initial Consult Date 05/06/17 Type of Consultation: cardioliogy Reason for Consultation cardiomyopathy/CHF Referring Provider: REMI SIMPSON MD Exam/Review of Systems Vital Signs Vitals Vital Signs Date Time Temp Pulse Resp B/P Pulse Ox O2 Delivery O2 Flow Rate FiO2 05/21/17 16:20 75 05/21/17 15:35 14 05/21/17 14:47 Nasal Cannula 2.0 05/21/17 14:34 97 05/21/17 14:20 98.8 131/65 05/19/17 07:30 36 Intake and Output 05/20/17 05/20/17 05/21/17 15:00 23:00 07:00 Intake Total 600 ml 520 ml Output Total 100 ml Balance 500 ml 520 ml Exam Review of Systems: CONSTITUTIONAL: No fevers, chills. PULMONARY: No sob CARDIOVASCULAR: No chest pain/palpitations GASTROINTESTINAL: No nausea/vomiting. GENITOURINARY: No hematuria/dysuria. MUSCULOSKELETAL: No myagias/arthalgias. PSYCHIATRIC: The patient denies depression. NEUROLOGIC: No weakness Constitutional: alert, oriented Psych: no complaints Head: normocephalic ENMT: mucosa pink and moist Neck: jvd (9 cm water), supple Respiratory: diminished breath sounds (at bases/B) Cardiovascular: regular rate and rhythm Gastrointestinal: non-tender, soft Musculoskeletal: muscle tone (normal) Extremities: edema (none) Neurological: other (No focal deficits) Results Result Diagram: 05/21/17 0507 05/21/17 0506 Results 24 hrs Laboratory Tests Test 05/21/17 05:06 05/21/17 05:07 Sodium Level 131 L Potassium Level 4.4 Chloride Level 92 L Carbon Dioxide Level 25 Anion Gap 18 H Blood Urea Nitrogen 49 #H Creatinine 8.86 #H Glucose Level 73 Calcium Level 8.3 L Total Bilirubin 0.0 L Direct Bilirubin 0.00 Indirect Bilirubin 0.0 Aspartate Amino Transf (AST/SGOT) 22 Alanine Aminotransferase (ALT/SGPT) 21 Alkaline Phosphatase 571 H Total Protein 7.4 Albumin 3.0 L Globulin 4.40 H Albumin/Globulin Ratio 0.68 White Blood Count 13.4 H Red Blood Count 2.48 L Hemoglobin 7.9 L Hematocrit 24.5 L Mean Corpuscular Volume 98.8 Mean Corpuscular Hemoglobin 31.9 Mean Corpuscular Hemoglobin Concent 32.2 Red Cell Distribution Width 16.7 H Platelet Count 414 Mean Platelet Volume 11.2 H Neutrophils % 81.7 H Lymphocytes % 6.8 L Monocytes % 10.0 Eosinophils % 0.5 Basophils % 0.3 Nucleated Red Blood Cells % 0.0 Neutrophils # (Manual) 10.9 H Lymphocytes # 0.9 Monocytes # 1.3 H Eosinophils # 0.1 Basophils # 0.0 Nucleated Red Blood Cells # 0.0 Medications Medications Current Medications Amlodipine Besylate (Norvasc) 5 mg BID PO Last administered on 05/21/17 09:52; Admin Dose 5 MG; Start 05/06/17 at 09:00 Atorvastatin Calcium (Lipitor) 20 mg QHS PO Last administered on 05/20/17 21:23 ; Admin Dose 20 MG; Start 05/06/17 at 21:00 Carvedilol (Coreg) 25 mg BID PO Last administered on 05/21/17 09:52; Admin Dose 25 MG; Start 05/06/17 at 09:00 Cinacalcet (Sensipar) 60 mg DAILY PO Last administered on 05/21/17 09:25; Admin Dose 60 MG; Start 05/06/17 at 09:00 Diphenhydramine HCl (Benadryl) 50 mg Q12H PRN PO ITCHING Last administered on 05:40; Admin Dose 50 MG; Start 05/06/17 at 00:00 Docusate Sodium (Colace) 100 mg BID PRN PO CONSTIPATION Last administered on 20:06; Admin Dose 100 MG; Start 05/06/17 at 00:00 Folic Acid (Folic Acid) 1 mg DAILY PO Last administered on 05/21/17 09:25; Admin Dose 1 MG; Start 05/06/17 at 09:00 Lanthanum Carbonate (Fosrenol) 500 mg TID PO Last administered on 05/20/17 21: 23; Admin Dose 500 MG; Start 05/06/17 at 09:00 Losartan Potassium (Cozaar) 50 mg BID PO Last administered on 05/20/17 21:24; Admin Dose 50 MG; Start 05/06/17 at 09:00 Pantoprazole (Protonix Tab) 40 mg DAILY@06 PO Last administered on 05/21/17 05: 53; Admin Dose 40 MG; Start 05/06/17 at 06:00 Acetaminophen (Tylenol Tab) 650 mg Q6H PRN PO PAIN LEVEL 1-3 OR FEVER; Start at 00:00 Acetaminophen (Tylenol Supp) 650 mg Q6H PRN [place] PAIN LEVEL 1-3 OR FEVER; Start 05/06/17 at 00:00 Acetaminophen/ Hydrocodone Bitart ([place] (5/325)) 1 tab Q6H PRN PO MODERATE PAIN LEVEL 4-6 Last administered on 05/13/17 09:02; Admin Dose 1 TAB; Start at 00:00 Bisacodyl (Dulcolax) 5 mg DAILY PRN PO CONSTIPATION; Start 05/06/17 at 00:00 Ondansetron HCl 4 mg 4 mg Q4H PRN IV NAUSEA AND/OR VOMITING Last administered on 05/21/17 14:32; Admin Dose 4 MG; Start 05/06/17 at 15:00 Sodium Chloride (NS) 1,000 ml @ 0 mls/hr Q0M PRN IV TO KEEP SBP ABOVE 90; Start 05/06/17 at 17:42 Diphenhydramine HCl (Benadryl) 25 mg QHS PRN IV INSOMNIA Last administered on 21:52; Admin Dose 25 MG; Start 05/08/17 at 12:30 Hydromorphone HCl (Dilaudid) 1 mg Q4H PRN IV SEVERE PAIN LEVEL 7-10 Last administered on 05/21/17 14:33; Admin Dose 1 MG; Start 05/09/17 at 16:00 Oxycodone/ Acetaminophen (Percocet (5/ 325)) 1 tab Q4H PRN PO PAIN Last administered on 05/18/17 11:29; Admin Dose 1 TAB; Start 05/13/17 at 09:30 Hydralazine HCl (Apresoline) 100 mg Q8 PO Last administered on 05/21/17 05:53; Admin Dose 100 MG; Start 05/13/17 at 22:00 Enoxaparin Sodium (Lovenox) 30 mg Q24H SC Last administered on 05/18/17 15:14; Admin Dose 30 MG; Start 05/14/17 at 14:00; Status Future Hold Diphenhydramine HCl 25 mg 25 mg Q6H PRN IV PRURITUS Last administered on 16:04; Admin Dose 25 MG; Start 05/19/17 at 11:00 Meropenem/Sodium Chloride (Merrem 500mg/50 ml(Pmx)) 50 ml @ 100 mls/hr DAILY IVPB Last administered on 05/21/17 13:53; Admin Dose 100 MLS/HR; Start 05/21/17 at 13:00 Doxycycline Hyclate (Vibramycin) 100 mg BID PO ; Start 05/21/17 at 21:00 Bacitracin/ Polymyxin B Sulfate (Polysporin Oint) 1 applic BID TOP Last administered on 05/21/17 16:03; Admin Dose 1 APPLIC; Start 05/21/17 at 13:52 DEONNA DENT May 21, 2017 17:00
[2017-05-21] MEDS: ATORVASTATIN 20 MG TAB PO SCH (21:04)
[2017-05-21] MEDS: DOXYCYCLINE 100 MG TAB PO SCH (21:05)
[2017-05-21] MEDS: OXYCODONE/ACETAMINOPHEN (5/325) TAB PO PRN (21:22)
[2017-05-21 21:58] LABS: ADD UMIC YES; UR ASCORBIC ACID NEGATIVE (NEGATIVE); UR BILIRUBIN (Dip) NEGATIVE (NEGATIVE); UR BLOOD (Dip) NEGATIVE (NEGATIVE); UR BUDDING YEAST FEW /HPF (NONE SEEN); UR CLARITY TURBID (CLEAR); UR COLOR YELLOW (YELLOW); UR GLUCOSE (Dip) 1+ mg/dL (NEGATIVE); UR KETONES (Dip) NEGATIVE (NEGATIVE); UR LEUKOCYTE ESTERASE (Dip) 3+ Leu/ul (NEGATIVE); UR NITRITE (Dip) NEGATIVE (NEGATIVE); UR RBC 23 /HPF (0-5); UR SPECIFIC GRAVITY (Dip) 1.009 (1.003-1.030); UR SQUAMOUS EPITHELIAL CELL MANY /HPF (FEW); UR TOTAL PROTEIN (Dip) 2+ mg/dl (NEGATIVE); UR UROBILINOGEN (Dip) NEGATIVE (NEGATIVE)
[2017-05-22] MEDS: DIPHENHYDRAMINE 50 MG INJ IV PRN ×2 (00:22→17:17)
[2017-05-22] MEDS: ALBUTEROL 0.083% (NEB) 2.5 MG/3 ML AMP HHN SCH ×4 (01:50→19:38)
[2017-05-22] MEDS: IPRATROPIUM (NEB) 0.5 MG/2.5 ML AMP HHN SCH ×4 (01:50→19:38)
[2017-05-22 02:49] VITALS: BP 109/55; RESP 18
[2017-05-22] MEDS: HYDROmorphONE 1 MG/ML SYG IV PRN ×5 (03:57→20:14)
[2017-05-22] MEDS: ONDANSETRON 4 MG INJ IV PRN ×5 (04:00→20:13)
[2017-05-22] MEDS: PANTOPRAZOLE (EC) 40 MG TAB PO SCH (05:30)
[2017-05-22 06:24] LABS: BASOPHIL # 0.1 10^3/ul (0.0-0.1); BASOPHILS % 0.5 % (0.0-2.0); EOSINOPHILS % 0.4 % (0.0-7.0); HEMATOCRIT 27.8 % (37.0-47.0); HEMOGLOBIN 8.6 g/dl (12.0-16.0); LYMPHOCYTES # 0.7 10^3/ul (0.8-2.9); LYMPHOCYTES % 6.3 % (15.0-51.0); MEAN CORPUSCULAR HGB CONC 30.9 g/dl (32.0-37.0); MEAN CORPUSCULAR VOLUME 100.4 fl (82.0-101.0); MEAN PLATELET VOLUME 11.4 fl (7.4-10.4); MONOCYTE # 1.2 10^3/ul (0.3-0.9); MONOCYTES % 10.5 % (0.0-11.0); NEUTROPHILS % 81.7 % (39.0-77.0); PLATELET COUNT 426 10^3/UL (140-415); RED BLOOD COUNT 2.77 10^6/ul (4.20-5.40); RED CELL DISTRIBUTION WIDTH 16.6 % (11.5-14.5); WHITE BLOOD COUNT 11.2 10^3/ul (4.8-10.8)
[2017-05-22 07:45] VITALS: BP 138/60; RESP 18
[2017-05-22] MEDS: SEVELAMER CARBONATE 0.8 GM PKT PO SCH ×3 (08:04→16:11)
[2017-05-22] MEDS: LANTHANUM 500 MG CHEW PO SCH ×3 (08:05→20:13)
[2017-05-22] MEDS: AMLODIPINE 5 MG TAB PO SCH ×2 (08:05→20:13)
[2017-05-22] MEDS: CINACALCET 30 MG TAB PO SCH (08:05)
[2017-05-22] MEDS: BACITRACIN/POLYMYXIN 28.35 GM OINT TOP SCH ×2 (08:05→20:13)
[2017-05-22] MEDS: DOXYCYCLINE 100 MG TAB PO SCH ×2 (08:07→20:13)
[2017-05-22] MEDS: LOSARTAN 50 MG TAB PO SCH ×2 (08:07→20:14)
[2017-05-22] MEDS: FOLIC ACID 1 MG TAB PO SCH (08:07)
[2017-05-22] MEDS: MEROPENEM 500MG/50 ML (PMX) 50 ML IVPB SCH (08:21)
--- NOTE | 2017-05-22 10:57 | PN ---
Date/Time of Note Date/Time of Note DATE: 05/22/17 TIME: 10:49 Assessment/Plan Lines/Catheters IV Catheter Type (from [facility]): Saline Lock Cerda in Place (from [facility]): No Assessment/Plan Chief Complaint/Hosp Course 1.Acalculous Cholecystitis: s/p lap marvin; abdominal pain improved; however now with SOB and need for supplemental O2 as well as worsening leukocytosis: pleural and pericardial effusion.; amylase/lipase nl; CT noted with small fluid collection-not drainable per radiologist; US abdomen noted, CT guided drainage not done- correction was made on the read, no drainable fluid collection. -increase ambulation as tolerated -IS-patient must use -Ice pack to abdominal wall; -pain management -abx per id 2. ESRD with HD -continue medical management 3.Shortness of breath and intermittent use of supplemental oxygen :CT noted with pleural and pericardial effusion. cxr: chf; improved; breathing comfortably -supplemental O2 to maintain O2 sat >92% -as above -medical management 4. Macrocytic anemia: h/h stable, no further bleed noted -monitor and transfuse as needed 5. Leukocytosis: wbc improving -monitor and trend 6. Hypertension: improved -medical management -continue HD 7. Hypoalbuminemia:Likely nutritional, min improved -optimize nutrition 8. Pericardial effusion with pleural effusion; chf -diuresis -hd -per cardiology 9. Hyponatremia: -judicious fluids 10. UTI: no dysuria: urine from 05/18 with bacteria but no sensitivities. UA resent: awaiting sensitivities -abx per sensitivity -frequent bladder emptying Patient seen and examined in collaboration with Dr. Alex Frazier. Thank you. Problems: Subjective 24 Hr Interval Summary Feeling much better. Breathing comfortably on nasal cannula. Ambulating without issues and good exercise tolerance. No abdominal pain/discomfort. +bowel function. WBC improving. No fevers, chills, sob, n/v/d/dysuria, cp, palpitations. Exam/Review of Systems Vital Signs Vitals Vital Signs Date Time Temp Pulse Resp B/P Pulse Ox O2 Delivery O2 Flow Rate FiO2 05/22/17 08:29 90 18 84 21 05/22/17 07:45 98.5 138/60 05/22/17 01:50 4.0 05/22/17 01:50 Nasal Cannula Intake and Output 05/21/17 05/21/17 05/22/17 15:00 23:00 07:00 Intake Total 50 ml 1450 ml 300 ml Output Total 4000 ml 60 ml Balance 50 ml -2550 ml 240 ml Exam Free Text/Dictation Constitutional: alert, oriented Psych: pleasant Head: atraumatic, normocephalic Eyes: nl lids, nl sclera ENMT: No mucosa pink and moist (dry) Neck: non-tender, supple Respiratory: diminished; supplemental O2 Cardiovascular: regular rate and rhythm No edema Gastrointestinal: bowel sounds, soft, nontender improved. Right lower quad sutures in place. Other incisions dry. No distended Genitourinary - Female: nl external genitalia Musculoskeletal: nl gait and stance, No muscle weakness, BLE no swelling Extremities: normal pulses, TANIA: fistula +thrill/bruit No edema Neurological: nl mental status, nl speech, nl strength Skin: No rash or lesions, dry Lymph: No nl lymph nodes Results Result Diagram: 05/22/17 0459 05/21/17 0506 [place] ANDRADE NP May 22, 2017 10:57
--- NOTE | 2017-05-22 12:17 | CONS ---
Date/Time of Note Date/Time of Note DATE: 05/22/17 TIME: 12:14 Assessment/Plan Assessment/Plan Chief Complaint/Hosp Course 1) Acute acalculous cholecystitis s/p laparoscopic cholecystectomy on 05/11 and liver wedge biopsy for hepatomegaly now with post-surgical fluid collection in the GB fossa associated with transient bump in WBC and worsening symptomatic pleuritic CP and SOB. The fluid collection on the CT does not appear to be well organized at this time to suggest an abscess and I agree with no drainage at this time. However, it is very likely infected as the GB was removed infected and there would have been some leaking of infected bile ducts at the time of the surgery. The most likely organisms are Enterococcus, E coli, Klebsiella, Streptococci and potentially yeast. Blood cultures have been unrevealing which is expected. Doing better overnight, with continued improvement in the WBC. No positive cultures. 05/17 - despite CXR with air bronchograms, pt does not exhibit overt signs of pneumonia overall improved, continue with unasyn, to get dialysis today if fevers or WBC an issue will need to broaden coverage for possible HCAP will check nasal for MRSA repeat CXR is pending 05/18 - low grade temp but no chills or sweats CXR has less signs of fluid overload wbc is slowly decreasing doubt aspiration of abd fluid is needed 05/19 - pt has mainly RUQ pain no N, V will order RUQ u/s to check status of fluid collection, if enlarging then aspiration and drainage will likely be necessary WBC is slowly rising 05/20 - fluid collection GB fossa is smaller after re-examination by radiology continue with just the unasyn 05/21 - pain is improving 2. ESRD on HD via LUE fistula, 3x weekly with probable mild chronic volume overload exacerbated by the surgery and acute infection/inflammatory state of the gallbladder manifest as increased bilateral pleural effusions with compressive atelectasis and pericardial effusion. Improved respiratory status after 3.5L of fluid removed with HD today. 05/17 - pt to get dialysis today and repeat CXR 3. History of lupus, per patient has been quiescent for some time 4. CAD with prior history and elevated troponins on admission, per Dr. Spencer. 5. bilateral infiltrate/effusion (L>R) air bronchograms are noted 05/17 - pt to get repeat CXR this a.m. pt seems to be improved on unasyn but if fever and WBC becomes an issue may need to broaden coverage for possible HCAP 05/18 - WBC continues to slowly improving and pt feeling better, no cough CXR shows less fluid overload 05/21 - wbc is increasing and pt has persistent SOB concern is pt may have HCAP change unasyn to doxy/merrem 05/22 - doing better with new regimen, less SOB and WBC are improved continue with doxy/merrem Problems: Consultation Date/Type/Reason Admit Date/Time May 05, 2017 at 18:31 Initial Consult Date 05/15/17 Type of Consultation: ID Referring Provider: REMI SIMPSON MD 24 HR Interval Summary Free Text/Dictation pt is feeling better, still has some R sided flank pain breathing is better no N, V, D Exam/Review of Systems Vital Signs Vitals Vital Signs Date Time Temp Pulse Resp B/P Pulse Ox O2 Delivery O2 Flow Rate FiO2 05/22/17 08:29 90 18 84 21 05/22/17 07:45 98.5 138/60 05/22/17 01:50 4.0 05/22/17 01:50 Nasal Cannula Intake and Output 05/21/17 05/21/17 05/22/17 14:59 22:59 06:59 Intake Total 50 ml 1450 ml 300 ml Output Total 4000 ml 60 ml Balance 50 ml -2550 ml 240 ml Exam Constitutional: alert, oriented ENMT: mucosa pink and moist Respiratory: other (decreased BS at L base) Cardiovascular: regular rate and rhythm Gastrointestinal: non-tender, soft Results Result Diagram: 05/22/17 0459 05/21/17 0506 Results 24 hrs Laboratory Tests Test 05/21/17 21:17 05/22/17 04:59 Urine Color YELLOW Urine Clarity TURBID A Urine pH 7.0 Urine Specific [place] 1.009 Urine Ketones NEGATIVE Urine Nitrite NEGATIVE Urine Bilirubin NEGATIVE Urine Urobilinogen NEGATIVE Urine Leukocyte Esterase 3+ H Urine Microscopic RBC 23 H Urine Microscopic WBC > 182 H Urine Squamous Epithelial Cells MANY A Urine Yeast (Budding) FEW A Urine Hemoglobin NEGATIVE Urine Glucose 1+ H Urine Total Protein 2+ H White Blood Count 11.2 H Red Blood Count 2.77 L Hemoglobin 8.6 L Hematocrit 27.8 L Mean Corpuscular Volume 100.4 Mean Corpuscular Hemoglobin 31.0 Mean Corpuscular Hemoglobin Concent 30.9 L Red Cell Distribution Width 16.6 H Platelet Count 426 H Mean Platelet Volume 11.4 H Neutrophils % 81.7 H Lymphocytes % 6.3 L Monocytes % 10.5 Eosinophils % 0.4 Basophils % 0.5 Nucleated Red Blood Cells % 0.0 Neutrophils # (Manual) 9.2 H Lymphocytes # 0.7 L Monocytes # 1.2 H Eosinophils # 0.0 Basophils # 0.1 Nucleated Red Blood Cells # 0.0 Medications Medications Current Medications Amlodipine Besylate (Norvasc) 5 mg BID PO Last administered on 05/22/17 08:05; Admin Dose 5 MG; Start 05/06/17 at 09:00 Atorvastatin Calcium (Lipitor) 20 mg QHS PO Last administered on 05/21/17 21:04 ; Admin Dose 20 MG; Start 05/06/17 at 21:00 Carvedilol (Coreg) 25 mg BID PO Last administered on 05/22/17 08:07; Admin Dose 25 MG; Start 05/06/17 at 09:00 Cinacalcet (Sensipar) 60 mg DAILY PO Last administered on 05/22/17 08:05; Admin Dose 60 MG; Start 05/06/17 at 09:00 Diphenhydramine HCl (Benadryl) 50 mg Q12H PRN PO ITCHING Last administered on 05:40; Admin Dose 50 MG; Start 05/06/17 at 00:00 Docusate Sodium (Colace) 100 mg BID PRN PO CONSTIPATION Last administered on 20:06; Admin Dose 100 MG; Start 05/06/17 at 00:00 Folic Acid (Folic Acid) 1 mg DAILY PO Last administered on 05/22/17 08:07; Admin Dose 1 MG; Start 05/06/17 at 09:00 Lanthanum Carbonate (Fosrenol) 500 mg TID PO Last administered on 05/22/17 08: 05; Admin Dose 500 MG; Start 05/06/17 at 09:00 Losartan Potassium (Cozaar) 50 mg BID PO Last administered on 05/22/17 08:07; Admin Dose 50 MG; Start 05/06/17 at 09:00 Pantoprazole (Protonix Tab) 40 mg DAILY@06 PO Last administered on 05/22/17 05: 30; Admin Dose 40 MG; Start 05/06/17 at 06:00 Acetaminophen (Tylenol Tab) 650 mg Q6H PRN PO PAIN LEVEL 1-3 OR FEVER; Start at 00:00 Acetaminophen (Tylenol Supp) 650 mg Q6H PRN [place] PAIN LEVEL 1-3 OR FEVER; Start 05/06/17 at 00:00 Acetaminophen/ Hydrocodone Bitart ([place] (5/325)) 1 tab Q6H PRN PO MODERATE PAIN LEVEL 4-6 Last administered on 05/13/17 09:02; Admin Dose 1 TAB; Start at 00:00 Bisacodyl (Dulcolax) 5 mg DAILY PRN PO CONSTIPATION; Start 05/06/17 at 00:00 Ondansetron HCl 4 mg 4 mg Q4H PRN IV NAUSEA AND/OR VOMITING Last administered on 05/22/17 08:07; Admin Dose 4 MG; Start 05/06/17 at 15:00 Sodium Chloride (NS) 1,000 ml @ 0 mls/hr Q0M PRN IV TO KEEP SBP ABOVE 90; Start 05/06/17 at 17:42 Diphenhydramine HCl (Benadryl) 25 mg QHS PRN IV INSOMNIA Last administered on 21:52; Admin Dose 25 MG; Start 05/08/17 at 12:30 Hydromorphone HCl (Dilaudid) 1 mg Q4H PRN IV SEVERE PAIN LEVEL 7-10 Last administered on 05/22/17 08:07; Admin Dose 1 MG; Start 05/09/17 at 16:00 Oxycodone/ Acetaminophen (Percocet (5/ 325)) 1 tab Q4H PRN PO PAIN Last administered on 05/21/17 21:22; Admin Dose 1 TAB; Start 05/13/17 at 09:30 Hydralazine HCl (Apresoline) 100 mg Q8 PO Last administered on 05/22/17 05:31; Admin Dose 100 MG; Start 05/13/17 at 22:00 Enoxaparin Sodium (Lovenox) 30 mg Q24H SC Last administered on 05/18/17 15:14; Admin Dose 30 MG; Start 05/14/17 at 14:00; Status Future Hold Diphenhydramine HCl 25 mg 25 mg Q6H PRN IV PRURITUS Last administered on 00:22; Admin Dose 25 MG; Start 05/19/17 at 11:00 Meropenem/Sodium Chloride (Merrem 500mg/50 ml(Pmx)) 50 ml @ 100 mls/hr DAILY IVPB Last administered on 05/22/17 08:21; Admin Dose 100 MLS/HR; Start 05/21/17 at 13:00 Doxycycline Hyclate (Vibramycin) 100 mg BID PO Last administered on 05/22/17 08 :07; Admin Dose 100 MG; Start 05/21/17 at 21:00 Bacitracin/ Polymyxin B Sulfate (Polysporin Oint) 1 applic BID TOP Last administered on 05/22/17 08:05; Admin Dose 1 APPLIC; Start 05/21/17 at 13:52 SIA CALDERÓN MD May 22, 2017 12:16
--- NOTE | 2017-05-22 13:05 | PN ---
Date/Time of Note Date/Time of Note DATE: 05/22/17 TIME: 13:03 Assessment/Plan VTE Prophylaxis VTE Prophylaxis Intervention: ambulation Lines/Catheters IV [facility] Saline Lock Urinary Cath still in place: No Assessment/Plan Chief Complaint/Hosp Course 1. Acalculous cholecystitis, s/p lap cholecystectomy, 2.electrolyte imbalance 3. ESRD on HD M/W/F 4. Hx of drug abuse 5. HTN, controlled 6. Anemia 7. Elevated troponin 8. Pleural effusion bilaterally 9. fascial wound Problems: Assessment/Plan 1. continue wound care on face 2. continue HD Subjective 24 Hr Interval Summary Constitutional: improved, no complaints Musculoskeletal: no complaints Skin: no complaints Exam/Review of Systems Vital Signs Vitals Vital Signs Date Time Temp Pulse Resp B/P Pulse Ox O2 Delivery O2 Flow Rate FiO2 05/22/17 08:29 90 18 84 21 05/22/17 07:45 98.5 138/60 05/22/17 01:50 4.0 05/22/17 01:50 Nasal Cannula Intake and Output 05/21/17 05/21/17 05/22/17 15:00 23:00 07:00 Intake Total 50 ml 1450 ml 300 ml Output Total 4000 ml 60 ml Balance 50 ml -2550 ml 240 ml Exam Constitutional: alert ENMT: other (face wound) Respiratory: clear to auscultation Results Result Diagram: 05/22/17 0459 05/21/17 0506 Results 24 hrs Laboratory Tests Test 05/21/17 21:17 05/22/17 04:59 Urine Color YELLOW Urine Clarity TURBID A Urine pH 7.0 Urine Specific [place] 1.009 Urine Ketones NEGATIVE Urine Nitrite NEGATIVE Urine Bilirubin NEGATIVE Urine Urobilinogen NEGATIVE Urine Leukocyte Esterase 3+ H Urine Microscopic RBC 23 H Urine Microscopic WBC > 182 H Urine Squamous Epithelial Cells MANY A Urine Yeast (Budding) FEW A Urine Hemoglobin NEGATIVE Urine Glucose 1+ H Urine Total Protein 2+ H White Blood Count 11.2 H Red Blood Count 2.77 L Hemoglobin 8.6 L Hematocrit 27.8 L Mean Corpuscular Volume 100.4 Mean Corpuscular Hemoglobin 31.0 Mean Corpuscular Hemoglobin Concent 30.9 L Red Cell Distribution Width 16.6 H Platelet Count 426 H Mean Platelet Volume 11.4 H Neutrophils % 81.7 H Lymphocytes % 6.3 L Monocytes % 10.5 Eosinophils % 0.4 Basophils % 0.5 Nucleated Red Blood Cells % 0.0 Neutrophils # (Manual) 9.2 H Lymphocytes # 0.7 L Monocytes # 1.2 H Eosinophils # 0.0 Basophils # 0.1 Nucleated Red Blood Cells # 0.0 Medications Medications Current Medications Amlodipine Besylate (Norvasc) 5 mg BID PO Last administered on 05/22/17 08:05; Admin Dose 5 MG; Start 05/06/17 at 09:00 Atorvastatin Calcium (Lipitor) 20 mg QHS PO Last administered on 05/21/17 21:04 ; Admin Dose 20 MG; Start 05/06/17 at 21:00 Carvedilol (Coreg) 25 mg BID PO Last administered on 05/22/17 08:07; Admin Dose 25 MG; Start 05/06/17 at 09:00 Cinacalcet (Sensipar) 60 mg DAILY PO Last administered on 05/22/17 08:05; Admin Dose 60 MG; Start 05/06/17 at 09:00 Diphenhydramine HCl (Benadryl) 50 mg Q12H PRN PO ITCHING Last administered on 05:40; Admin Dose 50 MG; Start 05/06/17 at 00:00 Docusate Sodium (Colace) 100 mg BID PRN PO CONSTIPATION Last administered on 20:06; Admin Dose 100 MG; Start 05/06/17 at 00:00 Folic Acid (Folic Acid) 1 mg DAILY PO Last administered on 05/22/17 08:07; Admin Dose 1 MG; Start 05/06/17 at 09:00 Lanthanum Carbonate (Fosrenol) 500 mg TID PO Last administered on 05/22/17 08: 05; Admin Dose 500 MG; Start 05/06/17 at 09:00 Losartan Potassium (Cozaar) 50 mg BID PO Last administered on 05/22/17 08:07; Admin Dose 50 MG; Start 05/06/17 at 09:00 Pantoprazole (Protonix Tab) 40 mg DAILY@06 PO Last administered on 05/22/17 05: 30; Admin Dose 40 MG; Start 05/06/17 at 06:00 Acetaminophen (Tylenol Tab) 650 mg Q6H PRN PO PAIN LEVEL 1-3 OR FEVER; Start at 00:00 Acetaminophen (Tylenol Supp) 650 mg Q6H PRN [place] PAIN LEVEL 1-3 OR FEVER; Start 05/06/17 at 00:00 Acetaminophen/ Hydrocodone Bitart ([place] (5/325)) 1 tab Q6H PRN PO MODERATE PAIN LEVEL 4-6 Last administered on 05/13/17 09:02; Admin Dose 1 TAB; Start at 00:00 Bisacodyl (Dulcolax) 5 mg DAILY PRN PO CONSTIPATION; Start 05/06/17 at 00:00 Ondansetron HCl 4 mg 4 mg Q4H PRN IV NAUSEA AND/OR VOMITING Last administered on 05/22/17 12:19; Admin Dose 4 MG; Start 05/06/17 at 15:00 Sodium Chloride (NS) 1,000 ml @ 0 mls/hr Q0M PRN IV TO KEEP SBP ABOVE 90; Start 05/06/17 at 17:42 Diphenhydramine HCl (Benadryl) 25 mg QHS PRN IV INSOMNIA Last administered on 21:52; Admin Dose 25 MG; Start 05/08/17 at 12:30 Hydromorphone HCl (Dilaudid) 1 mg Q4H PRN IV SEVERE PAIN LEVEL 7-10 Last administered on 05/22/17 12:19; Admin Dose 1 MG; Start 05/09/17 at 16:00 Oxycodone/ Acetaminophen (Percocet (5/ 325)) 1 tab Q4H PRN PO PAIN Last administered on 05/21/17 21:22; Admin Dose 1 TAB; Start 05/13/17 at 09:30 Hydralazine HCl (Apresoline) 100 mg Q8 PO Last administered on 05/22/17 05:31; Admin Dose 100 MG; Start 05/13/17 at 22:00 Enoxaparin Sodium (Lovenox) 30 mg Q24H SC Last administered on 05/18/17 15:14; Admin Dose 30 MG; Start 05/14/17 at 14:00; Status Future Hold Diphenhydramine HCl 25 mg 25 mg Q6H PRN IV PRURITUS Last administered on 00:22; Admin Dose 25 MG; Start 05/19/17 at 11:00 Meropenem/Sodium Chloride (Merrem 500mg/50 ml(Pmx)) 50 ml @ 100 mls/hr DAILY IVPB Last administered on 05/22/17 08:21; Admin Dose 100 MLS/HR; Start 05/21/17 at 13:00 Doxycycline Hyclate (Vibramycin) 100 mg BID PO Last administered on 05/22/17 08 :07; Admin Dose 100 MG; Start 05/21/17 at 21:00 Bacitracin/ Polymyxin B Sulfate (Polysporin Oint) 1 applic BID TOP Last administered on 05/22/17 08:05; Admin Dose 1 APPLIC; Start 05/21/17 at 13:52 TONY SANDOVAL May 22, 2017 13:05
[2017-05-22 14:15] VITALS: BP 116/57; RESP 18
--- NOTE | 2017-05-22 14:30 | CONS ---
Date/Time of Note Date/Time of Note DATE: 05/22/17 TIME: 14:25 Assessment/Plan Assessment/Plan Additional Assessment/Plan Nonischemic cardiomyopathy Acute on chronic systolic heart failure Hypertension dyslipidemia acute cholecystitis ESRD on HD Anemia Heart failure clinically compensated Hemodynamically stable Continue Coreg and losartan Continue Hydralazine Continue Lipitor Continue HD as scheduled Continue empiric antibiotics Continue Nebs as scheduled Continue GI and DVT Prophylaxis Consultation Date/Type/Reason Admit Date/Time May 05, 2017 at 18:31 Constitutional: improved, no complaints Eyes: no complaints ENT: No congestion Respiratory: shortness of breath (+) Cardiovascular: no complaints Gastrointestinal: pain Genitourinary: no complaints Musculoskeletal: no complaints Skin: no complaints Neurologic: No confusion, No dizziness, No headache Endocrine: dry skin Psychological: no complaints Past Surgical History Past Surgical Hx: other Social History Alcohol Use: none Smoking Status: Never smoker Drug Use: none Exam/Review of Systems Vital Signs Vitals Vital Signs Date Time Temp Pulse Resp B/P Pulse Ox O2 Delivery O2 Flow Rate FiO2 05/22/17 14:21 4.0 05/22/17 14:18 88 18 93 Nasal Cannula 05/22/17 14:15 99.9 116/57 05/22/17 08:29 21 Intake and Output 05/21/17 05/21/17 05/22/17 15:00 23:00 07:00 Intake Total 50 ml 1450 ml 300 ml Output Total 4000 ml 60 ml Balance 50 ml -2550 ml 240 ml Exam Constitutional: alert, oriented Head: atraumatic, normocephalic Neck: non-tender, supple Respiratory: diminished breath sounds Cardiovascular: regular rate and rhythm Gastrointestinal: nl liver, spleen, non-tender, soft Extremities: normal pulses Results Result Diagram: 05/22/17 0459 05/21/17 0506 Results 24 hrs Laboratory Tests Test 05/21/17 21:17 05/22/17 04:59 Urine Color YELLOW Urine Clarity TURBID A Urine pH 7.0 Urine Specific [place] 1.009 Urine Ketones NEGATIVE Urine Nitrite NEGATIVE Urine Bilirubin NEGATIVE Urine Urobilinogen NEGATIVE Urine Leukocyte Esterase 3+ H Urine Microscopic RBC 23 H Urine Microscopic WBC > 182 H Urine Squamous Epithelial Cells MANY A Urine Yeast (Budding) FEW A Urine Hemoglobin NEGATIVE Urine Glucose 1+ H Urine Total Protein 2+ H White Blood Count 11.2 H Red Blood Count 2.77 L Hemoglobin 8.6 L Hematocrit 27.8 L Mean Corpuscular Volume 100.4 Mean Corpuscular Hemoglobin 31.0 Mean Corpuscular Hemoglobin Concent 30.9 L Red Cell Distribution Width 16.6 H Platelet Count 426 H Mean Platelet Volume 11.4 H Neutrophils % 81.7 H Lymphocytes % 6.3 L Monocytes % 10.5 Eosinophils % 0.4 Basophils % 0.5 Nucleated Red Blood Cells % 0.0 Neutrophils # (Manual) 9.2 H Lymphocytes # 0.7 L Monocytes # 1.2 H Eosinophils # 0.0 Basophils # 0.1 Nucleated Red Blood Cells # 0.0 Medications Medications Current Medications Amlodipine Besylate (Norvasc) 5 mg BID PO Last administered on 05/22/17 08:05; Admin Dose 5 MG; Start 05/06/17 at 09:00 Atorvastatin Calcium (Lipitor) 20 mg QHS PO Last administered on 05/21/17 21:04 ; Admin Dose 20 MG; Start 05/06/17 at 21:00 Carvedilol (Coreg) 25 mg BID PO Last administered on 05/22/17 08:07; Admin Dose 25 MG; Start 05/06/17 at 09:00 Cinacalcet (Sensipar) 60 mg DAILY PO Last administered on 05/22/17 08:05; Admin Dose 60 MG; Start 05/06/17 at 09:00 Diphenhydramine HCl (Benadryl) 50 mg Q12H PRN PO ITCHING Last administered on 05:40; Admin Dose 50 MG; Start 05/06/17 at 00:00 Docusate Sodium (Colace) 100 mg BID PRN PO CONSTIPATION Last administered on 20:06; Admin Dose 100 MG; Start 05/06/17 at 00:00 Folic Acid (Folic Acid) 1 mg DAILY PO Last administered on 05/22/17 08:07; Admin Dose 1 MG; Start 05/06/17 at 09:00 Lanthanum Carbonate (Fosrenol) 500 mg TID PO Last administered on 05/22/17 08: 05; Admin Dose 500 MG; Start 05/06/17 at 09:00 Losartan Potassium (Cozaar) 50 mg BID PO Last administered on 05/22/17 08:07; Admin Dose 50 MG; Start 05/06/17 at 09:00 Pantoprazole (Protonix Tab) 40 mg DAILY@06 PO Last administered on 05/22/17 05: 30; Admin Dose 40 MG; Start 05/06/17 at 06:00 Acetaminophen (Tylenol Tab) 650 mg Q6H PRN PO PAIN LEVEL 1-3 OR FEVER; Start at 00:00 Acetaminophen (Tylenol Supp) 650 mg Q6H PRN [place] PAIN LEVEL 1-3 OR FEVER; Start 05/06/17 at 00:00 Acetaminophen/ Hydrocodone Bitart ([place] (5/325)) 1 tab Q6H PRN PO MODERATE PAIN LEVEL 4-6 Last administered on 05/13/17 09:02; Admin Dose 1 TAB; Start at 00:00 Bisacodyl (Dulcolax) 5 mg DAILY PRN PO CONSTIPATION; Start 05/06/17 at 00:00 Ondansetron HCl 4 mg 4 mg Q4H PRN IV NAUSEA AND/OR VOMITING Last administered on 05/22/17 12:19; Admin Dose 4 MG; Start 05/06/17 at 15:00 Sodium Chloride (NS) 1,000 ml @ 0 mls/hr Q0M PRN IV TO KEEP SBP ABOVE 90; Start 05/06/17 at 17:42 Diphenhydramine HCl (Benadryl) 25 mg QHS PRN IV INSOMNIA Last administered on 21:52; Admin Dose 25 MG; Start 05/08/17 at 12:30 Hydromorphone HCl (Dilaudid) 1 mg Q4H PRN IV SEVERE PAIN LEVEL 7-10 Last administered on 05/22/17 12:19; Admin Dose 1 MG; Start 05/09/17 at 16:00 Oxycodone/ Acetaminophen (Percocet (5/ 325)) 1 tab Q4H PRN PO PAIN Last administered on 05/21/17 21:22; Admin Dose 1 TAB; Start 05/13/17 at 09:30 Hydralazine HCl (Apresoline) 100 mg Q8 PO Last administered on 05/22/17 05:31; Admin Dose 100 MG; Start 05/13/17 at 22:00 Enoxaparin Sodium (Lovenox) 30 mg Q24H SC Last administered on 05/18/17 15:14; Admin Dose 30 MG; Start 05/14/17 at 14:00; Status Future Hold Diphenhydramine HCl 25 mg 25 mg Q6H PRN IV PRURITUS Last administered on 00:22; Admin Dose 25 MG; Start 05/19/17 at 11:00 Meropenem/Sodium Chloride (Merrem 500mg/50 ml(Pmx)) 50 ml @ 100 mls/hr DAILY IVPB Last administered on 05/22/17 08:21; Admin Dose 100 MLS/HR; Start 05/21/17 at 13:00 Doxycycline Hyclate (Vibramycin) 100 mg BID PO Last administered on 05/22/17 08 :07; Admin Dose 100 MG; Start 05/21/17 at 21:00 Bacitracin/ Polymyxin B Sulfate (Polysporin Oint) 1 applic BID TOP Last administered on 05/22/17 08:05; Admin Dose 1 APPLIC; Start 05/21/17 at 13:52 BRUNO PERALES M.D. May 22, 2017 14:30
[2017-05-22 20:05] VITALS: BP 134/62; RESP 18
[2017-05-22] MEDS: ATORVASTATIN 20 MG TAB PO SCH (20:13)
[2017-05-23] MEDS: ONDANSETRON 4 MG INJ IV PRN ×5 (00:58→17:52)
[2017-05-23] MEDS: HYDROmorphONE 1 MG/ML SYG IV PRN ×6 (00:58→22:14)
[2017-05-23] MEDS: IPRATROPIUM (NEB) 0.5 MG/2.5 ML AMP HHN SCH ×4 (02:08→20:09)
[2017-05-23] MEDS: ALBUTEROL 0.083% (NEB) 2.5 MG/3 ML AMP HHN SCH ×4 (02:08→20:09)
[2017-05-23 03:07] VITALS: BP 122/58; RESP 18
[2017-05-23] MEDS: PANTOPRAZOLE (EC) 40 MG TAB PO SCH (05:10)
[2017-05-23 05:26] LABS: BASOPHIL # 0.1 10^3/ul (0.0-0.1); BASOPHILS % 0.6 % (0.0-2.0); EOSINOPHILS # 0.2 10^3/ul (0.0-0.5); EOSINOPHILS % 1.7 % (0.0-7.0); HEMATOCRIT 25.9 % (37.0-47.0); LYMPHOCYTES % 8.7 % (15.0-51.0); MEAN CORPUSCULAR HEMOGLOBIN 30.5 pg (29.0-33.0); MEAN CORPUSCULAR HGB CONC 30.9 g/dl (32.0-37.0); MEAN CORPUSCULAR VOLUME 98.9 fl (82.0-101.0); MEAN PLATELET VOLUME 11.2 fl (7.4-10.4); MONOCYTE # 1.3 10^3/ul (0.3-0.9); MONOCYTES % 11.7 % (0.0-11.0); NEUTROPHILS % 76.5 % (39.0-77.0); PLATELET COUNT 441 10^3/UL (140-415); RED BLOOD COUNT 2.62 10^6/ul (4.20-5.40); RED CELL DISTRIBUTION WIDTH 16.9 % (11.5-14.5); WHITE BLOOD COUNT 10.9 10^3/ul (4.8-10.8)
[2017-05-23 06:19] LABS: ALBUMIN 3.1 g/dl (3.3-4.9); ALBUMIN/GLOBULIN RATIO 0.73; CALCIUM 8.4 mg/dl (8.4-10.2); CREATININE 7.61 mg/dl (0.44-1.00); POTASSIUM 4.1 mmol/L (3.5-5.1); TOTAL PROTEIN 7.3 g/dl (6.1-8.1)
[2017-05-23 07:45] VITALS: BP 127/60; RESP 18
[2017-05-23] MEDS: SEVELAMER CARBONATE 0.8 GM PKT PO SCH ×3 (08:25→17:35)
[2017-05-23] MEDS: MEROPENEM 500MG/50 ML (PMX) 50 ML IVPB SCH (09:05)
[2017-05-23] MEDS: AMLODIPINE 5 MG TAB PO SCH ×2 (09:07→20:43)
[2017-05-23] MEDS: LOSARTAN 50 MG TAB PO SCH ×2 (09:07→20:42)
[2017-05-23] MEDS: FOLIC ACID 1 MG TAB PO SCH (09:07)
[2017-05-23] MEDS: LANTHANUM 500 MG CHEW PO SCH ×3 (09:07→20:42)
[2017-05-23] MEDS: DOXYCYCLINE 100 MG TAB PO SCH ×2 (09:08→20:42)
[2017-05-23] MEDS: CINACALCET 30 MG TAB PO SCH (09:08)
[2017-05-23] MEDS: BACITRACIN/POLYMYXIN 28.35 GM OINT TOP SCH ×2 (09:08→20:43)
--- NOTE | 2017-05-23 10:13 | CONS ---
Date/Time of Note Date/Time of Note DATE: 05/23/17 TIME: 10:10 Assessment/Plan Assessment/Plan Chief Complaint/Hosp Course 1) Acute acalculous cholecystitis s/p laparoscopic cholecystectomy on 05/11 and liver wedge biopsy for hepatomegaly now with post-surgical fluid collection in the GB fossa associated with transient bump in WBC and worsening symptomatic pleuritic CP and SOB. The fluid collection on the CT does not appear to be well organized at this time to suggest an abscess and I agree with no drainage at this time. However, it is very likely infected as the GB was removed infected and there would have been some leaking of infected bile ducts at the time of the surgery. The most likely organisms are Enterococcus, E coli, Klebsiella, Streptococci and potentially yeast. Blood cultures have been unrevealing which is expected. Doing better overnight, with continued improvement in the WBC. No positive cultures. 05/17 - despite CXR with air bronchograms, pt does not exhibit overt signs of pneumonia overall improved, continue with unasyn, to get dialysis today if fevers or WBC an issue will need to broaden coverage for possible HCAP will check nasal for MRSA repeat CXR is pending 05/18 - low grade temp but no chills or sweats CXR has less signs of fluid overload wbc is slowly decreasing doubt aspiration of abd fluid is needed 05/19 - pt has mainly RUQ pain no N, V will order RUQ u/s to check status of fluid collection, if enlarging then aspiration and drainage will likely be necessary WBC is slowly rising 05/20 - fluid collection GB fossa is smaller after re-examination by radiology continue with just the unasyn 05/21 - pain is improving 05/23 - with change in antibiotics pain continues to improve 2. ESRD on HD via LUE fistula, 3x weekly with probable mild chronic volume overload exacerbated by the surgery and acute infection/inflammatory state of the gallbladder manifest as increased bilateral pleural effusions with compressive atelectasis and pericardial effusion. Improved respiratory status after 3.5L of fluid removed with HD today. 05/17 - pt to get dialysis today and repeat CXR 3. History of lupus, per patient has been quiescent for some time 4. CAD with prior history and elevated troponins on admission, per Dr. Spencer. 5. bilateral infiltrate/effusion (L>R) air bronchograms are noted 9/4 - pt to get repeat CXR this a.m. pt seems to be improved on unasyn but if fever and WBC becomes an issue may need to broaden coverage for possible HCAP 05/18 - WBC continues to slowly improving and pt feeling better, no cough CXR shows less fluid overload 05/21 - wbc is increasing and pt has persistent SOB concern is pt may have HCAP change unasyn to doxy/merrem 05/22 - doing better with new regimen, less SOB and WBC are improved continue with doxy/merrem 05/23 - WBC is back to normal continue doxy/merrem for another 5 days Problems: Consultation Date/Type/Reason Admit Date/Time May 05, 2017 at 18:31 Initial Consult Date 05/15/17 Type of Consultation: ID Referring Provider: REMI SIMPSON MD 24 HR Interval Summary Free Text/Dictation continues to slowly improve less abd pain and breathing is easier Exam/Review of Systems Vital Signs Vitals Vital Signs Date Time Temp Pulse Resp B/P Pulse Ox O2 Delivery O2 Flow Rate FiO2 05/23/17 07:51 3.0 05/23/17 07:51 80 18 91 Nasal Cannula 05/23/17 07:45 99.1 127/60 05/22/17 19:41 21 Intake and Output 05/22/17 05/22/17 05/23/17 15:00 23:00 07:00 Intake Total 50 ml 800 ml 420 ml Balance 50 ml 800 ml 420 ml Exam Constitutional: alert, oriented Eyes: nl sclera ENMT: mucosa pink and moist Respiratory: other (crackles at both bases) Cardiovascular: regular rate and rhythm Gastrointestinal: soft, tender (tender to RUQ only) Results Result Diagram: 05/23/17 0452 05/23/17 0452 Results 24 hrs Laboratory Tests Test 05/23/17 04:52 White Blood Count 10.9 H Red Blood Count 2.62 L Hemoglobin 8.0 L Hematocrit 25.9 L Mean Corpuscular Volume 98.9 Mean Corpuscular Hemoglobin 30.5 Mean Corpuscular Hemoglobin Concent 30.9 L Red Cell Distribution Width 16.9 H Platelet Count 441 H Mean Platelet Volume 11.2 H Neutrophils % 76.5 Lymphocytes % 8.7 L Monocytes % 11.7 H Eosinophils % 1.7 Basophils % 0.6 Nucleated Red Blood Cells % 0.0 Neutrophils # (Manual) 8.3 H Lymphocytes # 1.0 Monocytes # 1.3 H Eosinophils # 0.2 Basophils # 0.1 Nucleated Red Blood Cells # 0.0 Sodium Level 132 L Potassium Level 4.1 Chloride Level 93 L Carbon Dioxide Level 27 Anion Gap 16 Blood Urea Nitrogen 45 H Creatinine 7.61 H Glucose Level 85 Calcium Level 8.4 Total Bilirubin 0.0 L Direct Bilirubin 0.00 Indirect Bilirubin 0.0 Aspartate Amino Transf (AST/SGOT) 34 Alanine Aminotransferase (ALT/SGPT) 22 Alkaline Phosphatase 832 H Total Protein 7.3 Albumin 3.1 L Globulin 4.20 H Albumin/Globulin Ratio 0.73 Medications Medications Current Medications Amlodipine Besylate (Norvasc) 5 mg BID PO Last administered on 05/23/17 09:07 ; Admin Dose 5 MG; Start 05/06/17 at 09:00 Atorvastatin Calcium (Lipitor) 20 mg QHS PO Last administered on 05/22/17 20:13 ; Admin Dose 20 MG; Start 05/06/17 at 21:00 Carvedilol (Coreg) 25 mg BID PO Last administered on 05/23/17 09:06; Admin Dose 25 MG; Start 05/06/17 at 09:00 Cinacalcet (Sensipar) 60 mg DAILY PO Last administered on 05/23/17 09:08; Admin Dose 60 MG; Start 05/06/17 at 09:00 Diphenhydramine HCl (Benadryl) 50 mg Q12H PRN PO ITCHING Last administered on 05:40; Admin Dose 50 MG; Start 05/06/17 at 00:00 Docusate Sodium (Colace) 100 mg BID PRN PO CONSTIPATION Last administered on 20:06; Admin Dose 100 MG; Start 05/06/17 at 00:00 Folic Acid (Folic Acid) 1 mg DAILY PO Last administered on 05/23/17 09:07; Admin Dose 1 MG; Start 05/06/17 at 09:00 Lanthanum Carbonate (Fosrenol) 500 mg TID PO Last administered on 05/23/17 09: 07; Admin Dose 500 MG; Start 05/06/17 at 09:00 Losartan Potassium (Cozaar) 50 mg BID PO Last administered on 05/23/17 09:07; Admin Dose 50 MG; Start 05/06/17 at 09:00 Pantoprazole (Protonix Tab) 40 mg DAILY@06 PO Last administered on 05/23/17 05 :10; Admin Dose 40 MG; Start 05/06/17 at 06:00 Acetaminophen (Tylenol Tab) 650 mg Q6H PRN PO PAIN LEVEL 1-3 OR FEVER; Start at 00:00 Acetaminophen (Tylenol Supp) 650 mg Q6H PRN [place] PAIN LEVEL 1-3 OR FEVER; Start 05/06/17 at 00:00 Acetaminophen/ Hydrocodone Bitart ([place] (5/325)) 1 tab Q6H PRN PO MODERATE PAIN LEVEL 4-6 Last administered on 05/13/17 09:02; Admin Dose 1 TAB; Start at 00:00 Bisacodyl (Dulcolax) 5 mg DAILY PRN PO CONSTIPATION; Start 05/06/17 at 00:00 Ondansetron HCl 4 mg 4 mg Q4H PRN IV NAUSEA AND/OR VOMITING Last administered on 05/23/17 09:18; Admin Dose 4 MG; Start 05/06/17 at 15:00 Sodium Chloride (NS) 1,000 ml @ 0 mls/hr Q0M PRN IV TO KEEP SBP ABOVE 90; Start 05/06/17 at 17:42 Diphenhydramine HCl (Benadryl) 25 mg QHS PRN IV INSOMNIA Last administered on 21:52; Admin Dose 25 MG; Start 05/08/17 at 12:30 Hydromorphone HCl (Dilaudid) 1 mg Q4H PRN IV SEVERE PAIN LEVEL 7-10 Last administered on 05/23/17 09:18; Admin Dose 1 MG; Start 05/09/17 at 16:00 Oxycodone/ Acetaminophen (Percocet (5/ 325)) 1 tab Q4H PRN PO PAIN Last administered on 05/21/17 21:22; Admin Dose 1 TAB; Start 05/13/17 at 09:30 Hydralazine HCl (Apresoline) 100 mg Q8 PO Last administered on 05/23/17 05:10 ; Admin Dose 100 MG; Start 05/13/17 at 22:00 Enoxaparin Sodium (Lovenox) 30 mg Q24H SC Last administered on 05/18/17 15:14; Admin Dose 30 MG; Start 05/14/17 at 14:00; Status Future Hold Diphenhydramine HCl 25 mg 25 mg Q6H PRN IV PRURITUS Last administered on 17:17; Admin Dose 25 MG; Start 05/19/17 at 11:00 Meropenem/Sodium Chloride (Merrem 500mg/50 ml(Pmx)) 50 ml @ 100 mls/hr DAILY IVPB Last administered on 05/23/17 09:05; Admin Dose 100 MLS/HR; Start at 13:00 Doxycycline Hyclate (Vibramycin) 100 mg BID PO Last administered on 05/23/17 09:08; Admin Dose 100 MG; Start 05/21/17 at 21:00 Bacitracin/ Polymyxin B Sulfate (Polysporin Oint) 1 applic BID TOP Last administered on 05/23/17 09:08; Admin Dose 1 APPLIC; Start 05/21/17 at 13:52 SIA CALDERÓN MD May 23, 2017 10:13
[2017-05-23] MEDS: DIPHENHYDRAMINE 50 MG INJ IV PRN (10:31)
[2017-05-23 13:30] VITALS: BP 121/64; PULSE 90
--- NOTE | 2017-05-23 13:35 | CONS ---
Date/Time of Note Date/Time of Note DATE: 05/23/17 TIME: 13:35 Assessment/Plan Assessment/Plan Additional Assessment/Plan Nonischemic cardiomyopathy Acute on chronic systolic heart failure Hypertension dyslipidemia acute cholecystitis ESRD on HD Anemia Heart failure clinically compensated Hemodynamically stable Continue Coreg and losartan Continue Hydralazine Continue Lipitor Continue HD as scheduled Continue empiric antibiotics Continue Nebs as scheduled Continue GI and DVT Prophylaxis Consultation Date/Type/Reason Admit Date/Time May 05, 2017 at 18:31 Initial Consult Date 05/15/17 Type of Consultation: ID Referring Provider: REMI SIMPSON MD Exam/Review of Systems Vital Signs Vitals Vital Signs Date Time Temp Pulse Resp B/P Pulse Ox O2 Delivery O2 Flow Rate FiO2 05/23/17 07:51 3.0 05/23/17 07:51 80 18 91 Nasal Cannula 05/23/17 07:45 99.1 127/60 05/22/17 19:41 21 Intake and Output 05/22/17 05/22/17 05/23/17 15:00 23:00 07:00 Intake Total 50 ml 800 ml 420 ml Balance 50 ml 800 ml 420 ml Exam Constitutional: alert Head: atraumatic, normocephalic Neck: non-tender, supple Respiratory: clear to auscultation Cardiovascular: regular rate and rhythm Gastrointestinal: nl liver, spleen, non-tender, soft Extremities: normal pulses Results Result Diagram: 05/23/17 0452 05/23/17 0452 Results 24 hrs Laboratory Tests Test 05/23/17 04:52 White Blood Count 10.9 H Red Blood Count 2.62 L Hemoglobin 8.0 L Hematocrit 25.9 L Mean Corpuscular Volume 98.9 Mean Corpuscular Hemoglobin 30.5 Mean Corpuscular Hemoglobin Concent 30.9 L Red Cell Distribution Width 16.9 H Platelet Count 441 H Mean Platelet Volume 11.2 H Neutrophils % 76.5 Lymphocytes % 8.7 L Monocytes % 11.7 H Eosinophils % 1.7 Basophils % 0.6 Nucleated Red Blood Cells % 0.0 Neutrophils # (Manual) 8.3 H Lymphocytes # 1.0 Monocytes # 1.3 H Eosinophils # 0.2 Basophils # 0.1 Nucleated Red Blood Cells # 0.0 Sodium Level 132 L Potassium Level 4.1 Chloride Level 93 L Carbon Dioxide Level 27 Anion Gap 16 Blood Urea Nitrogen 45 H Creatinine 7.61 H Glucose Level 85 Calcium Level 8.4 Total Bilirubin 0.0 L Direct Bilirubin 0.00 Indirect Bilirubin 0.0 Aspartate Amino Transf (AST/SGOT) 34 Alanine Aminotransferase (ALT/SGPT) 22 Alkaline Phosphatase 832 H Total Protein 7.3 Albumin 3.1 L Globulin 4.20 H Albumin/Globulin Ratio 0.73 Medications Medications Current Medications Amlodipine Besylate (Norvasc) 5 mg BID PO Last administered on 05/23/17 09:07 ; Admin Dose 5 MG; Start 05/06/17 at 09:00 Atorvastatin Calcium (Lipitor) 20 mg QHS PO Last administered on 05/22/17 20:13 ; Admin Dose 20 MG; Start 05/06/17 at 21:00 Carvedilol (Coreg) 25 mg BID PO Last administered on 05/23/17 09:06; Admin Dose 25 MG; Start 05/06/17 at 09:00 Cinacalcet (Sensipar) 60 mg DAILY PO Last administered on 05/23/17 09:08; Admin Dose 60 MG; Start 05/06/17 at 09:00 Diphenhydramine HCl (Benadryl) 50 mg Q12H PRN PO ITCHING Last administered on 05:40; Admin Dose 50 MG; Start 05/06/17 at 00:00 Docusate Sodium (Colace) 100 mg BID PRN PO CONSTIPATION Last administered on 20:06; Admin Dose 100 MG; Start 05/06/17 at 00:00 Folic Acid (Folic Acid) 1 mg DAILY PO Last administered on 05/23/17 09:07; Admin Dose 1 MG; Start 05/06/17 at 09:00 Lanthanum Carbonate (Fosrenol) 500 mg TID PO Last administered on 05/23/17 09: 07; Admin Dose 500 MG; Start 05/06/17 at 09:00 Losartan Potassium (Cozaar) 50 mg BID PO Last administered on 05/23/17 09:07; Admin Dose 50 MG; Start 05/06/17 at 09:00 Pantoprazole (Protonix Tab) 40 mg DAILY@06 PO Last administered on 05/23/17 05 :10; Admin Dose 40 MG; Start 05/06/17 at 06:00 Acetaminophen (Tylenol Tab) 650 mg Q6H PRN PO PAIN LEVEL 1-3 OR FEVER; Start at 00:00 Acetaminophen (Tylenol Supp) 650 mg Q6H PRN [place] PAIN LEVEL 1-3 OR FEVER; Start 05/06/17 at 00:00 Acetaminophen/ Hydrocodone Bitart ([place] (5/325)) 1 tab Q6H PRN PO MODERATE PAIN LEVEL 4-6 Last administered on 05/13/17 09:02; Admin Dose 1 TAB; Start at 00:00 Bisacodyl (Dulcolax) 5 mg DAILY PRN PO CONSTIPATION; Start 05/06/17 at 00:00 Ondansetron HCl 4 mg 4 mg Q4H PRN IV NAUSEA AND/OR VOMITING Last administered on 05/23/17 09:18; Admin Dose 4 MG; Start 05/06/17 at 15:00 Sodium Chloride (NS) 1,000 ml @ 0 mls/hr Q0M PRN IV TO KEEP SBP ABOVE 90; Start 05/06/17 at 17:42 Diphenhydramine HCl (Benadryl) 25 mg QHS PRN IV INSOMNIA Last administered on 21:52; Admin Dose 25 MG; Start 05/08/17 at 12:30 Hydromorphone HCl (Dilaudid) 1 mg Q4H PRN IV SEVERE PAIN LEVEL 7-10 Last administered on 05/23/17 09:18; Admin Dose 1 MG; Start 05/09/17 at 16:00 Oxycodone/ Acetaminophen (Percocet (5/ 325)) 1 tab Q4H PRN PO PAIN Last administered on 05/21/17 21:22; Admin Dose 1 TAB; Start 05/13/17 at 09:30 Hydralazine HCl (Apresoline) 100 mg Q8 PO Last administered on 05/23/17 05:10 ; Admin Dose 100 MG; Start 05/13/17 at 22:00 Enoxaparin Sodium (Lovenox) 30 mg Q24H SC Last administered on 05/18/17 15:14; Admin Dose 30 MG; Start 05/14/17 at 14:00; Status Future Hold Diphenhydramine HCl 25 mg 25 mg Q6H PRN IV PRURITUS Last administered on 10:31; Admin Dose 25 MG; Start 05/19/17 at 11:00 Meropenem/Sodium Chloride (Merrem 500mg/50 ml(Pmx)) 50 ml @ 100 mls/hr DAILY IVPB Last administered on 05/23/17 09:05; Admin Dose 100 MLS/HR; Start at 13:00 Doxycycline Hyclate (Vibramycin) 100 mg BID PO Last administered on 05/23/17 09:08; Admin Dose 100 MG; Start 05/21/17 at 21:00 Bacitracin/ Polymyxin B Sulfate (Polysporin Oint) 1 applic BID TOP Last administered on 05/23/17 09:08; Admin Dose 1 APPLIC; Start 05/21/17 at 13:52 BRUNO PERALES M.D. May 23, 2017 13:35
[2017-05-23 14:25] VITALS: BP 121/60; RESP 18
--- NOTE | 2017-05-23 17:12 | PN ---
Date/Time of Note Date/Time of Note DATE: 05/23/17 TIME: 16:55 Assessment/Plan Lines/Catheters IV Catheter Type (from [facility]): Saline Lock Cerda in Place (from [facility]): No Assessment/Plan Chief Complaint/Hosp Course 1.Acalculous Cholecystitis: s/p lap marvin; abdominal pain improved; however now with SOB and need for supplemental O2 as well as worsening leukocytosis: pleural and pericardial effusion.; amylase/lipase nl; CT noted with small fluid collection-not drainable per radiologist; US abdomen noted, CT guided drainage not done- correction was made on the read, no drainable fluid collection. -increase ambulation as tolerated -IS-patient must use -Ice pack to abdominal wall; -pain management -abx per id 2. ESRD with HD -continue medical management 3.Shortness of breath and intermittent use of supplemental oxygen :CT noted with pleural and pericardial effusion. cxr: chf; improved; breathing comfortably -supplemental O2 to maintain O2 sat >92% -as above -medical management 4. Macrocytic anemia: h/h stable, no further bleed noted -monitor and transfuse as needed 5. Leukocytosis: wbc continuing to improve -monitor and trend 6. Hypertension: improved -medical management -continue HD 7. Hypoalbuminemia:Likely nutritional, min improved -optimize nutrition 8. Pericardial effusion with pleural effusion; chf -diuresis -hd -per cardiology 9. Hyponatremia: -judicious fluids 10. UTI/funguria: no dysuria: urine from 05/18 with bacteria but no sensitivities. UA resent: cultures noted -antimicrobials per sensitivity -frequent bladder emptying Patient seen and examined in collaboration with Dr. Alex Frazier. Thank you. Problems: Subjective 24 Hr Interval Summary Leukocytosis improved. Funguria. Feeling much better. No abdominal pain/ discomfort. Tolerating diet. No fevers, chills, n/v/d/dysuria. Comfortable on nasal cannula. Improved exercise tolerance. Exam/Review of Systems Vital Signs Vitals Vital Signs Date Time Temp Pulse Resp B/P Pulse Ox O2 Delivery O2 Flow Rate FiO2 05/23/17 14:25 99.2 90 18 121/60 93 05/23/17 08:00 Nasal Cannula 2.0 05/22/17 19:41 21 Intake and Output 05/22/17 05/22/17 05/23/17 15:00 23:00 07:00 Intake Total 50 ml 800 ml 420 ml Balance 50 ml 800 ml 420 ml Exam Free Text/Dictation Constitutional: alert, oriented Psych: pleasant Head: atraumatic, normocephalic Eyes: nl lids, nl sclera ENMT: No mucosa pink and moist (dry) Neck: non-tender, supple Respiratory: diminished; supplemental O2 Cardiovascular: regular rate and rhythm No edema Gastrointestinal: bowel sounds, soft, nontender improved. Right lower quad sutures in place. Other incisions dry. No distended Genitourinary - Female: nl external genitalia Musculoskeletal: nl gait and stance, No muscle weakness, BLE no swelling Extremities: normal pulses, TANIA: fistula +thrill/bruit No edema Neurological: nl mental status, nl speech, nl strength Skin: No rash or lesions, dry Lymph: No nl lymph nodes Results Result Diagram: 05/23/17 0452 05/23/17 0452 [place] ANDRADE NP May 23, 2017 17:06
--- NOTE | 2017-05-23 19:08 | PN ---
Date/Time of Note Date/Time of Note DATE: 05/23/17 TIME: 19:04 Assessment/Plan VTE Prophylaxis VTE Prophylaxis Intervention: LMWH Lines/Catheters IV Catheter Type (from Nrs): Saline Lock Urinary Cath still in place: No Assessment/Plan Chief Complaint/Hosp Course A/P 47 y/o 1. Acalculous cholecystitis s/p ,Lap marvin with some fluid collection 2 Pneumonia 3 Hyperkalemia on HD s/p HD 4 ESRD on HD M/W/F 5 Elevated Troponin? ACS however in ESRD +elevated trop however nuclear stress test negative 6 HTN controlled 7Cardiomyopathy 8 Drug abuse 9Hyperphos On Lanthanum/ Renagel/ Plan - c/w Doxycline/Meropenam for 5 more days per I.D - HD tmw - c/w ASA/ B shon/ ARB/ Amlodipine - GI prophylaxsis/DVT prophylaxsis - ABG with hypoxia> home oxygen - pain control with percocet and dilaudid Problems: Subjective 24 Hr Interval Summary Free Text/Dictation Feels better today No drainable fluid collection Exam/Review of Systems Vital Signs Vitals Vital Signs Date Time Temp Pulse Resp B/P Pulse Ox O2 Delivery O2 Flow Rate FiO2 05/23/17 14:25 99.2 90 18 121/60 93 05/23/17 08:00 Nasal Cannula 2.0 05/22/17 19:41 21 Intake and Output 05/22/17 05/22/17 05/23/17 15:00 23:00 07:00 Intake Total 50 ml 800 ml 420 ml Balance 50 ml 800 ml 420 ml Exam Exam Constitutional: alert ENMT: other (face wound) Respiratory: dec breath sounds b/l Abdomen:soft, non tender Results Result Diagram: 05/23/17 0452 05/23/17 0452 Results 24 hrs Laboratory Tests Test 05/23/17 04:52 White Blood Count 10.9 H Red Blood Count 2.62 L Hemoglobin 8.0 L Hematocrit 25.9 L Mean Corpuscular Volume 98.9 Mean Corpuscular Hemoglobin 30.5 Mean Corpuscular Hemoglobin Concent 30.9 L Red Cell Distribution Width 16.9 H Platelet Count 441 H Mean Platelet Volume 11.2 H Neutrophils % 76.5 Lymphocytes % 8.7 L Monocytes % 11.7 H Eosinophils % 1.7 Basophils % 0.6 Nucleated Red Blood Cells % 0.0 Neutrophils # (Manual) 8.3 H Lymphocytes # 1.0 Monocytes # 1.3 H Eosinophils # 0.2 Basophils # 0.1 Nucleated Red Blood Cells # 0.0 Sodium Level 132 L Potassium Level 4.1 Chloride Level 93 L Carbon Dioxide Level 27 Anion Gap 16 Blood Urea Nitrogen 45 H Creatinine 7.61 H Glucose Level 85 Calcium Level 8.4 Total Bilirubin 0.0 L Direct Bilirubin 0.00 Indirect Bilirubin 0.0 Aspartate Amino Transf (AST/SGOT) 34 Alanine Aminotransferase (ALT/SGPT) 22 Alkaline Phosphatase 832 H Total Protein 7.3 Albumin 3.1 L Globulin 4.20 H Albumin/Globulin Ratio 0.73 Medications Medications Current Medications Amlodipine Besylate (Norvasc) 5 mg BID PO Last administered on 05/23/17 09:07 ; Admin Dose 5 MG; Start 05/06/17 at 09:00 Atorvastatin Calcium (Lipitor) 20 mg QHS PO Last administered on 05/22/17 20:13 ; Admin Dose 20 MG; Start 05/06/17 at 21:00 Carvedilol (Coreg) 25 mg BID PO Last administered on 05/23/17 09:06; Admin Dose 25 MG; Start 05/06/17 at 09:00 Cinacalcet (Sensipar) 60 mg DAILY PO Last administered on 05/23/17 09:08; Admin Dose 60 MG; Start 05/06/17 at 09:00 Diphenhydramine HCl (Benadryl) 50 mg Q12H PRN PO ITCHING Last administered on 05:40; Admin Dose 50 MG; Start 05/06/17 at 00:00 Docusate Sodium (Colace) 100 mg BID PRN PO CONSTIPATION Last administered on 20:06; Admin Dose 100 MG; Start 05/06/17 at 00:00 Folic Acid (Folic Acid) 1 mg DAILY PO Last administered on 05/23/17 09:07; Admin Dose 1 MG; Start 05/06/17 at 09:00 Lanthanum Carbonate (Fosrenol) 500 mg TID PO Last administered on 05/23/17 13: 45; Admin Dose 500 MG; Start 05/06/17 at 09:00 Losartan Potassium (Cozaar) 50 mg BID PO Last administered on 05/23/17 09:07; Admin Dose 50 MG; Start 05/06/17 at 09:00 Pantoprazole (Protonix Tab) 40 mg DAILY@06 PO Last administered on 05/23/17 05 :10; Admin Dose 40 MG; Start 05/06/17 at 06:00 Acetaminophen (Tylenol Tab) 650 mg Q6H PRN PO PAIN LEVEL 1-3 OR FEVER; Start at 00:00 Acetaminophen (Tylenol Supp) 650 mg Q6H PRN ID PAIN LEVEL 1-3 OR FEVER; Start 05/06/17 at 00:00 Acetaminophen/ Hydrocodone Bitart ([place] (5/325)) 1 tab Q6H PRN PO MODERATE PAIN LEVEL 4-6 Last administered on 05/13/17 09:02; Admin Dose 1 TAB; Start at 00:00 Bisacodyl (Dulcolax) 5 mg DAILY PRN PO CONSTIPATION; Start 05/06/17 at 00:00 Ondansetron HCl 4 mg 4 mg Q4H PRN IV NAUSEA AND/OR VOMITING Last administered on 05/23/17 17:52; Admin Dose 4 MG; Start 05/06/17 at 15:00 Sodium Chloride (NS) 1,000 ml @ 0 mls/hr Q0M PRN IV TO KEEP SBP ABOVE 90; Start 05/06/17 at 17:42 Diphenhydramine HCl (Benadryl) 25 mg QHS PRN IV INSOMNIA Last administered on 21:52; Admin Dose 25 MG; Start 05/08/17 at 12:30 Hydromorphone HCl (Dilaudid) 1 mg Q4H PRN IV SEVERE PAIN LEVEL 7-10 Last administered on 05/23/17 17:52; Admin Dose 1 MG; Start 05/09/17 at 16:00 Oxycodone/ Acetaminophen (Percocet (5/ 325)) 1 tab Q4H PRN PO PAIN Last administered on 05/21/17 21:22; Admin Dose 1 TAB; Start 05/13/17 at 09:30 Hydralazine HCl (Apresoline) 100 mg Q8 PO Last administered on 05/23/17 13:48 ; Admin Dose 100 MG; Start 05/13/17 at 22:00 Enoxaparin Sodium (Lovenox) 30 mg Q24H SC Last administered on 05/18/17 15:14; Admin Dose 30 MG; Start 05/14/17 at 14:00; Status Future Hold Diphenhydramine HCl 25 mg 25 mg Q6H PRN IV PRURITUS Last administered on 10:31; Admin Dose 25 MG; Start 05/19/17 at 11:00 Meropenem/Sodium Chloride (Merrem 500mg/50 ml(Pmx)) 50 ml @ 100 mls/hr DAILY IVPB Last administered on 05/23/17 09:05; Admin Dose 100 MLS/HR; Start at 13:00 Doxycycline Hyclate (Vibramycin) 100 mg BID PO Last administered on 05/23/17 09:08; Admin Dose 100 MG; Start 05/21/17 at 21:00 Bacitracin/ Polymyxin B Sulfate (Polysporin Oint) 1 applic BID TOP Last administered on 05/23/17 09:08; Admin Dose 1 APPLIC; Start 05/21/17 at 13:52 KHANG WATSON MD May 23, 2017 19:08
[2017-05-23 20:20] VITALS: BP 127/60; RESP 17
[2017-05-23] MEDS: ATORVASTATIN 20 MG TAB PO SCH (20:42)
[2017-05-24] VITALS (11 sets, daily range): BP systolic 115–171; BP diastolic 60–79; PULSE 79–85; RESP 18–20
[2017-05-24] MEDS: DIPHENHYDRAMINE 50 MG INJ IV PRN ×3 (00:22→18:28)
[2017-05-24] MEDS: ONDANSETRON 4 MG INJ IV PRN ×4 (00:22→21:14)
[2017-05-24] MEDS: FLUCONAZOLE 200 MG/NS (PMX) 100 ML IVPB SCH ×2 (00:26→23:09)
[2017-05-24] MEDS: IPRATROPIUM (NEB) 0.5 MG/2.5 ML AMP HHN SCH ×4 (01:42→19:44)
[2017-05-24] MEDS: ALBUTEROL 0.083% (NEB) 2.5 MG/3 ML AMP HHN SCH ×4 (01:42→19:44)
[2017-05-24] MEDS: HYDROmorphONE 1 MG/ML SYG IV PRN ×5 (03:44→21:06)
[2017-05-24] MEDS: OXYCODONE/ACETAMINOPHEN (5/325) TAB PO PRN ×3 (04:55→17:18)
[2017-05-24] MEDS: PANTOPRAZOLE (EC) 40 MG TAB PO SCH (05:18)
--- NOTE | 2017-05-24 05:37 | CONS ---
DATE OF ADMISSION: 05/05/2017 DATE OF CONSULTATION: 05/22/2017 fInfectious disease consultation REQUESTING PHYSICIAN: Jensen Wilkerson MD HISTORY OF PRESENT ILLNESS: The patient is a 47-year-old, female, who was admitted with a chief complaint of acalculous cholecystitis. She also had pulmonary congestion with bilateral pleural effusions and a small pericardial effusion. She was evaluated by Cardiology and she also had elevated troponins, but this was felt to be consistent with nonischemic chronic cardiomyopathy. The patient has end-stage renal disease and hypertension. She has a history of drug use. She has had a an implantable defibrillator. She was treated for, according to her, pneumonia and bronchitis with apparently doxycycline the meropenem and cefazolin at one point, which her white count was 13,400 on 05/21 and now has descended to 10,900. Her antibiotics have been discontinued. The patient underwent laparoscopic cholecystectomy and most recently the ultrasound post cholecystectomy showed a 7.9 cm complex structure in the gallbladder fossa compatible with a hematoma versus a fluid collection. Prior to this, patient had a liver biopsy, which revealed mild portal fibrosis and mild increase in iron. The patient has some burning when she passes urine and passes urine frequently and a culture grew 10 to 5th Zora albicans. PAST MEDICAL HISTORY: Drug abuse. Hypertension. Facial wound, end-stage renal disease. ALLERGIES: SHE IS ALLERGIC TO VALTREX. MEDICATION: Include to lanthanum carbonate, , hydralazine 100 mg every 8 hours, ipratropium bromide and albuterol sulfate inhalations, atorvastatin 20 mg daily, amlodipine 5 mg twice a day, carvedilol 25 mg twice a day, losartan 50 mg twice a day, Pantoprazole 40 mg daily. Benadryl 50 mg p.r.n. PHYSICAL EXAMINATION: GENERAL: Reveals a well-developed but chronically ill-appearing, young female, lying in bed. She is alert, oriented, cooperative, somewhat subdued. VITAL SIGNS: Her blood pressure is 121/64, temperature 98.1, pulse 92, respirations 18, pulse oximetry is 90 percent on 1 percent by nasal cannula. HEENT: The pupils are constricted and react to light. The extraocular movements are full. There is no icterus. The mouth has moist mucous membranes. NECK: Has no jugular venous distention, is supple. CHEST: Tattooed anteriorly and clear to auscultation. Examination of the chest reveals scattered inspiratory and expiratory wheezes. HEART: Regular without gallops, murmurs, or rubs. ABDOMEN: Soft. No palpable organs or masses. EXTREMITIES: The there is no pedal edema. IMPRESSION: 1. Yeast urinary tract infection. 2. Nonischemic cardiomyopathy. 3. Hypertension. 4. End-stage renal disease. 5. Status post pneumonia/bronchitis/congestive heart failure, fluid overload. 6. Status past laparoscopic cholecystectomy, acalculous cholecystitis. 7. AICD. RECOMMENDATIONS: Continue present treatment including pulmonary toilet and recommend Diflucan 100 mg daily for 7 days. Dictating for Reji Ortega MD. Dictated By: Abbie Ohara MD /[email or web address]/ /Document#: [id number]
--- NOTE | 2017-05-24 07:36 | CONS ---
Date/Time of Note Date/Time of Note DATE: 05/24/17 TIME: 07:32 Assessment/Plan Assessment/Plan Chief Complaint/Hosp Course 1) Acute acalculous cholecystitis s/p laparoscopic cholecystectomy on 05/11 and liver wedge biopsy for hepatomegaly now with post-surgical fluid collection in the GB fossa associated with transient bump in WBC and worsening symptomatic pleuritic CP and SOB. The fluid collection on the CT does not appear to be well organized at this time to suggest an abscess and I agree with no drainage at this time. However, it is very likely infected as the GB was removed infected and there would have been some leaking of infected bile ducts at the time of the surgery. The most likely organisms are Enterococcus, E coli, Klebsiella, Streptococci and potentially yeast. Blood cultures have been unrevealing which is expected. Doing better overnight, with continued improvement in the WBC. No positive cultures. 05/17 - despite CXR with air bronchograms, pt does not exhibit overt signs of pneumonia overall improved, continue with unasyn, to get dialysis today if fevers or WBC an issue will need to broaden coverage for possible HCAP will check nasal for MRSA repeat CXR is pending 05/18 - low grade temp but no chills or sweats CXR has less signs of fluid overload wbc is slowly decreasing doubt aspiration of abd fluid is needed 05/19 - pt has mainly RUQ pain no N, V will order RUQ u/s to check status of fluid collection, if enlarging then aspiration and drainage will likely be necessary WBC is slowly rising 05/20 - fluid collection GB fossa is smaller after re-examination by radiology continue with just the unasyn 05/21 - pain is improving 05/23 - with change in antibiotics pain continues to improve 05/24 - still with abd pain, if persists may need to repeat u/s to follow up on fluid collection at GB fossa 2. ESRD on HD via LUE fistula, 3x weekly with probable mild chronic volume overload exacerbated by the surgery and acute infection/inflammatory state of the gallbladder manifest as increased bilateral pleural effusions with compressive atelectasis and pericardial effusion. Improved respiratory status after 3.5L of fluid removed with HD today. 05/17 - pt to get dialysis today and repeat CXR 3. History of lupus, per patient has been quiescent for some time 4. CAD with prior history and elevated troponins on admission, per Dr. Spencer. 5. bilateral infiltrate/effusion (L>R) air bronchograms are noted 05/17 - pt to get repeat CXR this a.m. pt seems to be improved on unasyn but if fever and WBC becomes an issue may need to broaden coverage for possible HCAP 05/18 - WBC continues to slowly improving and pt feeling better, no cough CXR shows less fluid overload 05/21 - wbc is increasing and pt has persistent SOB concern is pt may have HCAP change unasyn to doxy/merrem 05/22 - doing better with new regimen, less SOB and WBC are improved continue with doxy/merrem 05/23 - WBC is back to normal continue doxy/merrem for another 5 days 05/24 - breathing is better on doxy/merrem thru 05/27 at least 6. funguria 05/24 - pt is asymptomatic doubt she needs treatment placed on diflucan will d/c after 3 doses Problems: Consultation Date/Type/Reason Admit Date/Time May 05, 2017 at 18:31 Initial Consult Date 05/15/17 Type of Consultation: ID Referring Provider: REMI SIMPSON MD 24 HR Interval Summary Free Text/Dictation pt still has R sided abd pain breathing continues to improve, able to go longer off O2 no V, dysuria, D Exam/Review of Systems Vital Signs Vitals Vital Signs Date Time Temp Pulse Resp B/P Pulse Ox O2 Delivery O2 Flow Rate FiO2 05/24/17 02:16 97.5 57 19 130/64 93 05/24/17 01:43 3.0 05/23/17 20:13 Nasal Cannula 05/22/17 19:41 21 Intake and Output 05/23/17 05/23/17 05/24/17 15:00 23:00 07:00 Intake Total 750 ml 450 ml Balance 750 ml 450 ml Exam Constitutional: alert, oriented Eyes: nl sclera ENMT: mucosa pink and moist Respiratory: other (crackles at both bases) Cardiovascular: regular rate and rhythm Gastrointestinal: other (some pain to RUQ mainly), soft Extremities: other (no edema) Results Result Diagram: 05/23/17 0452 05/23/17 045 Medications Medications Current Medications Amlodipine Besylate (Norvasc) 5 mg BID PO Last administered on 05/23/17t 20:43 ; Admin Dose 5 MG; Start 05/06/17 at 09:00 Atorvastatin Calcium (Lipitor) 20 mg QHS PO Last administered on 05/23/17 20: 42; Admin Dose 20 MG; Start 05/06/17 at 21:00 Carvedilol (Coreg) 25 mg BID PO Last administered on 05/23/17 20:43; Admin Dose 25 MG; Start 05/06/17 at 09:00 Cinacalcet (Sensipar) 60 mg DAILY PO Last administered on 05/23/17 09:08; Admin Dose 60 MG; Start 05/06/17 at 09:00 Diphenhydramine HCl (Benadryl) 50 mg Q12H PRN PO ITCHING Last administered on 05:40; Admin Dose 50 MG; Start 05/06/17 at 00:00 Docusate Sodium (Colace) 100 mg BID PRN PO CONSTIPATION Last administered on 20:06; Admin Dose 100 MG; Start 05/06/17 at 00:00 Folic Acid (Folic Acid) 1 mg DAILY PO Last administered on 05/23/17 09:07; Admin Dose 1 MG; Start 05/06/17 at 09:00 Lanthanum Carbonate (Fosrenol) 500 mg TID PO Last administered on 05/23/17 20: 42; Admin Dose 500 MG; Start 05/06/17 at 09:00 Losartan Potassium (Cozaar) 50 mg BID PO Last administered on 05/23/17 20:42; Admin Dose 50 MG; Start 05/06/17 at 09:00 Pantoprazole (Protonix Tab) 40 mg DAILY@06 PO Last administered on 05/24/17 05 :18; Admin Dose 40 MG; Start 05/06/17 at 06:00 Acetaminophen (Tylenol Tab) 650 mg Q6H PRN PO PAIN LEVEL 1-3 OR FEVER; Start at 00:00 Acetaminophen (Tylenol Supp) 650 mg Q6H PRN DE PAIN LEVEL 1-3 OR FEVER; Start 05/06/17 at 00:00 Acetaminophen/ Hydrocodone Bitart ([place] (5/325)) 1 tab Q6H PRN PO MODERATE PAIN LEVEL 4-6 Last administered on 05/13/17 09:02; Admin Dose 1 TAB; Start at 00:00 Bisacodyl (Dulcolax) 5 mg DAILY PRN PO CONSTIPATION; Start 05/06/17 at 00:00 Ondansetron HCl 4 mg 4 mg Q4H PRN IV NAUSEA AND/OR VOMITING Last administered on 05/24/17 00:22; Admin Dose 4 MG; Start 05/06/17 at 15:00 Sodium Chloride (NS) 1,000 ml @ 0 mls/hr Q0M PRN IV TO KEEP SBP ABOVE 90; Start 05/06/17 at 17:42 Diphenhydramine HCl (Benadryl) 25 mg QHS PRN IV INSOMNIA Last administered on 21:52; Admin Dose 25 MG; Start 05/08/17 at 12:30 Hydromorphone HCl (Dilaudid) 1 mg Q4H PRN IV SEVERE PAIN LEVEL 7-10 Last administered on 05/24/17 03:44; Admin Dose 1 MG; Start 05/09/17 at 16:00 Oxycodone/ Acetaminophen (Percocet (5/ 325)) 1 tab Q4H PRN PO PAIN Last administered on 05/24/17 04:55; Admin Dose 1 TAB; Start 05/13/17 at 09:30 Hydralazine HCl (Apresoline) 100 mg Q8 PO Last administered on 05/24/17 05:18 ; Admin Dose 100 MG; Start 05/13/17 at 22:00 Enoxaparin Sodium (Lovenox) 30 mg Q24H SC Last administered on 05/18/17 15:14; Admin Dose 30 MG; Start 05/14/17 at 14:00; Status Future Hold Diphenhydramine HCl 25 mg 25 mg Q6H PRN IV PRURITUS Last administered on 00:22; Admin Dose 25 MG; Start 05/19/17 at 11:00 Meropenem/Sodium Chloride (Merrem 500mg/50 ml(Pmx)) 50 ml @ 100 mls/hr DAILY IVPB Last administered on 05/23/17 09:05; Admin Dose 100 MLS/HR; Start at 13:00 Doxycycline Hyclate (Vibramycin) 100 mg BID PO Last administered on 05/23/17 20:42; Admin Dose 100 MG; Start 05/21/17 at 21:00 Bacitracin/ Polymyxin B Sulfate 1 applic 1 applic BID TOP Last administered on 05/23/17 20:43; Admin Dose 1 APPLIC; Start 05/21/17 at 13:52 Fluconazole (Diflucan 200 Mg/ NS (Pmx)) 100 ml @ 100 mls/hr Q24H IVPB Last administered on 05/24/17 00:26; Admin Dose 100 MLS/HR; Start 05/23/17 at 23:30 ; Stop 05/30/17 at 18:00 SIA CALDERÓN MD May 24, 2017 07:36
[2017-05-24] MEDS: AMLODIPINE 5 MG TAB PO SCH ×2 (09:00→21:07)
[2017-05-24] MEDS: LOSARTAN 50 MG TAB PO SCH ×2 (09:00→21:07)
--- NOTE | 2017-05-24 09:14 | PN ---
Date/Time of Note Date/Time of Note DATE: 05/24/17 TIME: 09:03 Assessment/Plan Lines/Catheters IV Catheter Type (from [facility]): Saline Lock Cerda in Place (from [facility]): No Assessment/Plan Chief Complaint/Hosp Course 1.Acalculous Cholecystitis: s/p lap marvin; abdominal pain improved US abdomen noted, CT guided drainage not done- correction was made on the read, no drainable fluid collection; fluid size decreased from prior read on CT; no fevers, wbc coming down -increase ambulation as tolerated -IS-patient must use -Ice pack to abdominal wall; -pain management -abx per id 2. ESRD with HD -continue medical management 3.Shortness of breath and intermittent use of supplemental oxygen :CT noted with pleural and pericardial effusion. cxr: chf; improved; breathing comfortably -supplemental O2 to maintain O2 sat >92% -as above -medical management 4. Macrocytic anemia: h/h stable, no acute bleed noted -monitor and transfuse as needed 5. Leukocytosis: wbc continuing to improve -monitor and trend 6. Hypertension: improved -medical management -continue HD 7. Hypoalbuminemia:Likely nutritional, min improved -optimize nutrition 8. Pericardial effusion with pleural effusion; chf -fluid management with diuresis and hd -per cardiology 9. Hyponatremia: -judicious fluids 10. UTI/funguria: no dysuria: urine from 05/18 with bacteria but no sensitivities. UA resent: cultures noted -antimicrobials per sensitivity -frequent bladder emptying Patient seen and examined in collaboration with Dr. Alex Frazier. Thank you. Problems: Subjective 24 Hr Interval Summary Feeling much better. No abdominal pain/discomfort. +bowel function. Comfortable on nasal cannula. No sob, cp, palpitations, chavarria, dizziness, n/v/d/dysuria, sz, rash. Exam/Review of Systems Vital Signs Vitals Vital Signs Date Time Temp Pulse Resp B/P Pulse Ox O2 Delivery O2 Flow Rate FiO2 05/24/17 08:22 81 18 83 21 05/24/17 02:16 97.5 130/64 05/24/17 01:43 3.0 05/23/17 20:13 Nasal Cannula Intake and Output 05/23/17 05/23/17 05/24/17 15:00 23:00 07:00 Intake Total 750 ml 450 ml Balance 750 ml 450 ml Exam Free Text/Dictation Constitutional: alert, oriented Psych: pleasant Head: atraumatic, normocephalic Eyes: nl lids, nl sclera ENMT: No mucosa pink and moist (dry) Neck: non-tender, supple Respiratory: diminished; supplemental O2 Cardiovascular: regular rate and rhythm No edema Gastrointestinal: bowel sounds, soft, nontender improved. Right lower quad sutures in place. Other incisions dry - no bleed noted. No distended Genitourinary - Female: nl external genitalia Musculoskeletal: nl gait and stance, No muscle weakness, BLE no swelling Extremities: normal pulses, TANIA: fistula +thrill/bruit No edema Neurological: nl mental status, nl speech, nl strength Skin: No rash or lesions, dry Lymph: No nl lymph nodes Results Result Diagram: 05/23/17 0452 05/23/17 0452 NJ ANDRADE NP May 24, 2017 09:14
[2017-05-24] MEDS: SEVELAMER CARBONATE 0.8 GM PKT PO SCH ×4 (09:17→17:19)
[2017-05-24] MEDS: DOXYCYCLINE 100 MG TAB PO SCH ×2 (09:18→21:06)
[2017-05-24] MEDS: LANTHANUM 500 MG CHEW PO SCH ×3 (09:18→21:06)
[2017-05-24] MEDS: BACITRACIN/POLYMYXIN 28.35 GM OINT TOP SCH ×2 (09:18→21:06)
[2017-05-24] MEDS: CINACALCET 30 MG TAB PO SCH (09:18)
[2017-05-24] MEDS: MEROPENEM 500MG/50 ML (PMX) 50 ML IVPB SCH (09:18)
[2017-05-24] MEDS: FOLIC ACID 1 MG TAB PO SCH (09:18)
--- NOTE | 2017-05-24 12:06 | CONS ---
Date/Time of Note Date/Time of Note DATE: 05/24/17 TIME: 12:05 Assessment/Plan Assessment/Plan Chief Complaint/Hosp Course IMPRESSION: 1. Positive troponin in the setting of renal failure with a history of nonischemic cardiomyopathy by catheterization December 2015, thus likely a marker of chronic cardiomyopathy more than suggestive of acute coronary syndrome.-minimal uptrend/NO cp/no ischemia by lexiscan this admission 2. Cardiomyopathy with decreased left ventricular ejection fraction 40% by mot recent echo 3. Hypertension-reasonable control 4. Dyslipidemia. 5. Acute cholecystitis. Now post-op s/p Lap marvin with mary revealing possible hematoma collection 6. Endstage renal dialysis on hemodialysis. 7. Anemia. 8. Hyperkalemia-improved 9. CHF-systolic acute on chronic Recc: -Continue coreg/norvasc/hydralazine with reasonable BP control -continue statin/asa -HD for volume removal aggresively with slowly improvig volume status -Follow surgical site of recurrent bleeding and give routine post-op care Problems: Consultation Date/Type/Reason Admit Date/Time May 05, 2017 at 18:31 Initial Consult Date 05/06/17 Type of Consultation: cardiology Reason for Consultation positive troponin Referring Provider: REMI SIMPSON MD Exam/Review of Systems Vital Signs Vitals Vital Signs Date Time Temp Pulse Resp B/P Pulse Ox O2 Delivery O2 Flow Rate FiO2 05/24/17 11:42 97.8 82 18 131/60 96 05/24/17 08:22 21 05/24/17 01:43 3.0 05/23/17 20:13 Nasal Cannula Intake and Output 05/23/17 05/23/17 05/24/17 15:00 23:00 07:00 Intake Total 750 ml 450 ml Balance 750 ml 450 ml Exam Review of Systems: CONSTITUTIONAL: No fevers, chills. PULMONARY: No sob CARDIOVASCULAR: No chest pain/palpitations GASTROINTESTINAL: No nausea/vomiting. GENITOURINARY: No hematuria/dysuria. MUSCULOSKELETAL: No myagias/arthalgias. PSYCHIATRIC: The patient denies depression. NEUROLOGIC: No weakness Constitutional: alert Psych: no complaints Head: normocephalic ENMT: mucosa pink and moist Neck: jvd (9 cm water), supple Respiratory: diminished breath sounds (at bases/B) Cardiovascular: regular rate and rhythm Gastrointestinal: non-tender, soft Musculoskeletal: muscle tone (normal) Extremities: edema (none) Neurological: other (No focal deficits) Results Result Diagram: 05/23/17 0452 05/23/17 0452 Medications Medications Current Medications Amlodipine Besylate (Norvasc) 5 mg BID PO Last administered on 05/23/17 20:43 ; Admin Dose 5 MG; Start 05/06/17 at 09:00 Atorvastatin Calcium (Lipitor) 20 mg QHS PO Last administered on 05/23/17 20: 42; Admin Dose 20 MG; Start 05/06/17 at 21:00 Carvedilol (Coreg) 25 mg BID PO Last administered on 05/23/17 20:43; Admin Dose 25 MG; Start 05/06/17 at 09:00 Cinacalcet (Sensipar) 60 mg DAILY PO Last administered on 05/24/17 09:18; Admin Dose 60 MG; Start 05/06/17 at 09:00 Diphenhydramine HCl (Benadryl) 50 mg Q12H PRN PO ITCHING Last administered on 05:40; Admin Dose 50 MG; Start 05/06/17 at 00:00 Docusate Sodium (Colace) 100 mg BID PRN PO CONSTIPATION Last administered on 20:06; Admin Dose 100 MG; Start 05/06/17 at 00:00 Folic Acid (Folic Acid) 1 mg DAILY PO Last administered on 05/24/17 09:18; Admin Dose 1 MG; Start 05/06/17 at 09:00 Lanthanum Carbonate (Fosrenol) 500 mg TID PO Last administered on 05/24/17 09: 18; Admin Dose 500 MG; Start 05/06/17 at 09:00 Losartan Potassium (Cozaar) 50 mg BID PO Last administered on 05/23/17 20:42; Admin Dose 50 MG; Start 05/06/17 at 09:00 Pantoprazole (Protonix Tab) 40 mg DAILY@06 PO Last administered on 05/24/17 05 :18; Admin Dose 40 MG; Start 05/06/17 at 06:00 Acetaminophen (Tylenol Tab) 650 mg Q6H PRN PO PAIN LEVEL 1-3 OR FEVER; Start at 00:00 Acetaminophen (Tylenol Supp) 650 mg Q6H PRN [place] PAIN LEVEL 1-3 OR FEVER; Start 05/06/17 at 00:00 Acetaminophen/ Hydrocodone Bitart ([place] (5/325)) 1 tab Q6H PRN PO MODERATE PAIN LEVEL 4-6 Last administered on 05/13/17 09:02; Admin Dose 1 TAB; Start at 00:00 Bisacodyl (Dulcolax) 5 mg DAILY PRN PO CONSTIPATION; Start 05/06/17 at 00:00 Ondansetron HCl 4 mg 4 mg Q4H PRN IV NAUSEA AND/OR VOMITING Last administered on 05/24/17 07:56; Admin Dose 4 MG; Start 05/06/17 at 15:00 Sodium Chloride (NS) 1,000 ml @ 0 mls/hr Q0M PRN IV TO KEEP SBP ABOVE 90; Start 05/06/17 at 17:42 Diphenhydramine HCl (Benadryl) 25 mg QHS PRN IV INSOMNIA Last administered on 21:52; Admin Dose 25 MG; Start 05/08/17 at 12:30 Hydromorphone HCl (Dilaudid) 1 mg Q4H PRN IV SEVERE PAIN LEVEL 7-10 Last administered on 05/24/17 07:49; Admin Dose 1 MG; Start 05/09/17 at 16:00 Oxycodone/ Acetaminophen (Percocet (5/ 325)) 1 tab Q4H PRN PO PAIN Last administered on 05/24/17 04:55; Admin Dose 1 TAB; Start 05/13/17 at 09:30 Hydralazine HCl (Apresoline) 100 mg Q8 PO Last administered on 05/24/17 05:18 ; Admin Dose 100 MG; Start 05/13/17 at 22:00 Enoxaparin Sodium (Lovenox) 30 mg Q24H SC Last administered on 05/18/17 15:14; Admin Dose 30 MG; Start 05/14/17 at 14:00; Status Future Hold Diphenhydramine HCl 25 mg 25 mg Q6H PRN IV PRURITUS Last administered on 00:22; Admin Dose 25 MG; Start 05/19/17 at 11:00 Meropenem/Sodium Chloride (Merrem 500mg/50 ml(Pmx)) 50 ml @ 100 mls/hr DAILY IVPB Last administered on 05/24/17 09:18; Admin Dose 100 MLS/HR; Start at 13:00 Doxycycline Hyclate (Vibramycin) 100 mg BID PO Last administered on 05/24/17 09:18; Admin Dose 100 MG; Start 05/21/17 at 21:00 Bacitracin/ Polymyxin B Sulfate 1 applic 1 applic BID TOP Last administered on 05/24/17 09:18; Admin Dose 1 APPLIC; Start 05/21/17 at 13:52 Fluconazole (Diflucan 200 Mg/ NS (Pmx)) 100 ml @ 100 mls/hr Q24H IVPB Last administered on 05/24/17 00:26; Admin Dose 100 MLS/HR; Start 05/23/17 at 23:30 ; Stop 05/30/17 at 18:00 DEONNA DENT May 24, 2017 12:06
[2017-05-24 13:48] LABS: BASOPHIL # 0.1 10^3/ul (0.0-0.1); BASOPHILS % 0.7 % (0.0-2.0); EOSINOPHILS # 0.2 10^3/ul (0.0-0.5); EOSINOPHILS % 2.5 % (0.0-7.0); HEMATOCRIT 25.7 % (37.0-47.0); HEMOGLOBIN 8.3 g/dl (12.0-16.0); LYMPHOCYTES # 0.7 10^3/ul (0.8-2.9); LYMPHOCYTES % 7.4 % (15.0-51.0); MEAN CORPUSCULAR HEMOGLOBIN 31.7 pg (29.0-33.0); MEAN CORPUSCULAR HGB CONC 32.3 g/dl (32.0-37.0); MEAN CORPUSCULAR VOLUME 98.1 fl (82.0-101.0); MEAN PLATELET VOLUME 10.4 fl (7.4-10.4); MONOCYTE # 0.8 10^3/ul (0.3-0.9); MONOCYTES % 9.1 % (0.0-11.0); NEUTROPHILS % 79.6 % (39.0-77.0); PLATELET COUNT 467 10^3/UL (140-415); RED BLOOD COUNT 2.62 10^6/ul (4.20-5.40); RED CELL DISTRIBUTION WIDTH 16.4 % (11.5-14.5)
--- NOTE | 2017-05-24 17:51 | PN ---
Date/Time of Note Date/Time of Note DATE: 05/24/17 TIME: 17:46 Assessment/Plan VTE Prophylaxis VTE Prophylaxis Intervention: other Lines/Catheters IV Catheter Type (from Nrs): Saline Lock Urinary Cath still in place: No Assessment/Plan Chief Complaint/Hosp Course 1. Acalculous cholecystitis s/p ,Lap marvin with some fluid collection 2 Pneumonia 3 Hyperkalemia hx 4 ESRD on HD M/W/F 5 Elevated Troponin? ACS however in ESRD +elevated trop however nuclear stress test negative 6 HTN 7Cardiomyopathy 8 s/pABD SITE BLEEDING 9 donato glabrata plan per id hd antibiotic in meropenem Problems: Subjective 24 Hr Interval Summary Respiratory: no complaints Cardiovascular: no complaints Gastrointestinal: no complaints, pain, No nausea Exam/Review of Systems Vital Signs Vitals Vital Signs Date Time Temp Pulse Resp B/P Pulse Ox O2 Delivery O2 Flow Rate FiO2 05/24/17 14:20 85 05/24/17 14:07 18 95 Nasal Cannula 3.0 05/24/17 11:42 97.8 131/60 05/24/17 08:22 21 Intake and Output 05/23/17 05/23/17 05/24/17 14:59 22:59 06:59 Intake Total 750 ml 450 ml Balance 750 ml 450 ml Exam Neck: supple Respiratory: clear to auscultation Cardiovascular: regular rate and rhythm Gastrointestinal: bowel sounds (+), soft Extremities: normal pulses Results Result Diagram: 05/24/17 1334 05/23/17 0452 Results 24 hrs Laboratory Tests Test 05/24/17 13:34 White Blood Count 9.0 Red Blood Count 2.62 L Hemoglobin 8.3 L Hematocrit 25.7 L Mean Corpuscular Volume 98.1 Mean Corpuscular Hemoglobin 31.7 Mean Corpuscular Hemoglobin Concent 32.3 Red Cell Distribution Width 16.4 H Platelet Count 467 H Mean Platelet Volume 10.4 Neutrophils % 79.6 H Lymphocytes % 7.4 L Monocytes % 9.1 Eosinophils % 2.5 Basophils % 0.7 Nucleated Red Blood Cells % 0.0 Neutrophils # (Manual) 7.2 Lymphocytes # 0.7 L Monocytes # 0.8 Eosinophils # 0.2 Basophils # 0.1 Nucleated Red Blood Cells # 0.0 Medications Medications Current Medications Amlodipine Besylate (Norvasc) 5 mg BID PO Last administered on 9/10/17at 20:43 ; Admin Dose 5 MG; Start 05/06/17 at 09:00 Atorvastatin Calcium (Lipitor) 20 mg QHS PO Last administered on 05/23/17 20: 42; Admin Dose 20 MG; Start 05/06/17 at 21:00 Carvedilol (Coreg) 25 mg BID PO Last administered on 05/23/17 20:43; Admin Dose 25 MG; Start 05/06/17 at 09:00 Cinacalcet (Sensipar) 60 mg DAILY PO Last administered on 05/24/17 09:18; Admin Dose 60 MG; Start 05/06/17 at 09:00 Diphenhydramine HCl (Benadryl) 50 mg Q12H PRN PO ITCHING Last administered on 05:40; Admin Dose 50 MG; Start 05/06/17 at 00:00 Docusate Sodium (Colace) 100 mg BID PRN PO CONSTIPATION Last administered on 20:06; Admin Dose 100 MG; Start 05/06/17 at 00:00 Folic Acid (Folic Acid) 1 mg DAILY PO Last administered on 05/24/17 09:18; Admin Dose 1 MG; Start 05/06/17 at 09:00 Lanthanum Carbonate (Fosrenol) 500 mg TID PO Last administered on 05/24/17 12: 21; Admin Dose 500 MG; Start 05/06/17 at 09:00 Losartan Potassium (Cozaar) 50 mg BID PO Last administered on 05/23/17 20:42; Admin Dose 50 MG; Start 05/06/17 at 09:00 Pantoprazole (Protonix Tab) 40 mg DAILY@06 PO Last administered on 05/24/17 05 :18; Admin Dose 40 MG; Start 05/06/17 at 06:00 Acetaminophen (Tylenol Tab) 650 mg Q6H PRN PO PAIN LEVEL 1-3 OR FEVER; Start at 00:00 Acetaminophen (Tylenol Supp) 650 mg Q6H PRN [place] PAIN LEVEL 1-3 OR FEVER; Start 05/06/17 at 00:00 Acetaminophen/ Hydrocodone Bitart ([place] (5/325)) 1 tab Q6H PRN PO MODERATE PAIN LEVEL 4-6 Last administered on 05/13/17 09:02; Admin Dose 1 TAB; Start at 00:00 Bisacodyl (Dulcolax) 5 mg DAILY PRN PO CONSTIPATION; Start 05/06/17 at 00:00 Ondansetron HCl 4 mg 4 mg Q4H PRN IV NAUSEA AND/OR VOMITING Last administered on 05/24/17 12:20; Admin Dose 4 MG; Start 05/06/17 at 15:00 Sodium Chloride (NS) 1,000 ml @ 0 mls/hr Q0M PRN IV TO KEEP SBP ABOVE 90; Start 05/06/17 at 17:42 Diphenhydramine HCl (Benadryl) 25 mg QHS PRN IV INSOMNIA Last administered on 21:52; Admin Dose 25 MG; Start 05/08/17 at 12:30 Hydromorphone HCl (Dilaudid) 1 mg Q4H PRN IV SEVERE PAIN LEVEL 7-10 Last administered on 05/24/17 16:21; Admin Dose 1 MG; Start 05/09/17 at 16:00 Oxycodone/ Acetaminophen (Percocet (5/ 325)) 1 tab Q4H PRN PO PAIN Last administered on 05/24/17 17:18; Admin Dose 1 TAB; Start 05/13/17 at 09:30 Hydralazine HCl (Apresoline) 100 mg Q8 PO Last administered on 05/24/17 05:18 ; Admin Dose 100 MG; Start 05/13/17 at 22:00 Enoxaparin Sodium (Lovenox) 30 mg Q24H SC Last administered on 05/18/17 15:14; Admin Dose 30 MG; Start 05/14/17 at 14:00; Status Future Hold Diphenhydramine HCl 25 mg 25 mg Q6H PRN IV PRURITUS Last administered on 12:23; Admin Dose 25 MG; Start 05/19/17 at 11:00 Meropenem/Sodium Chloride (Merrem 500mg/50 ml(Pmx)) 50 ml @ 100 mls/hr DAILY IVPB Last administered on 05/24/17 09:18; Admin Dose 100 MLS/HR; Start at 13:00 Doxycycline Hyclate (Vibramycin) 100 mg BID PO Last administered on 05/24/17 09:18; Admin Dose 100 MG; Start 05/21/17 at 21:00 Bacitracin/ Polymyxin B Sulfate 1 applic 1 applic BID TOP Last administered on 05/24/17 09:18; Admin Dose 1 APPLIC; Start 05/21/17 at 13:52 Fluconazole (Diflucan 200 Mg/ NS (Pmx)) 100 ml @ 100 mls/hr Q24H IVPB Last administered on 05/24/17 00:26; Admin Dose 100 MLS/HR; Start 05/23/17 at 23:30 ; Stop 05/30/17 at 18:00 REMI SIMPSON MD May 24, 2017 17:51
[2017-05-24] MEDS: ATORVASTATIN 20 MG TAB PO SCH (21:06)
[2017-05-25] MEDS: HYDROmorphONE 1 MG/ML SYG IV PRN ×6 (01:12→21:27)
[2017-05-25] MEDS: ALBUTEROL 0.083% (NEB) 2.5 MG/3 ML AMP HHN SCH ×4 (01:56→19:45)
[2017-05-25] MEDS: IPRATROPIUM (NEB) 0.5 MG/2.5 ML AMP HHN SCH ×4 (01:56→19:45)
[2017-05-25 03:17] VITALS: BP 130/62; RESP 18
[2017-05-25] MEDS: PANTOPRAZOLE (EC) 40 MG TAB PO SCH (05:54)
[2017-05-25 06:01] LABS: BASOPHIL # 0.1 10^3/ul (0.0-0.1); BASOPHILS % 0.9 % (0.0-2.0); EOSINOPHILS # 0.3 10^3/ul (0.0-0.5); EOSINOPHILS % 4.7 % (0.0-7.0); HEMATOCRIT 25.9 % (37.0-47.0); LYMPHOCYTES # 0.7 10^3/ul (0.8-2.9); LYMPHOCYTES % 12.7 % (15.0-51.0); MEAN CORPUSCULAR HEMOGLOBIN 31.6 pg (29.0-33.0); MEAN CORPUSCULAR HGB CONC 30.9 g/dl (32.0-37.0); MEAN CORPUSCULAR VOLUME 102.4 fl (82.0-101.0); MEAN PLATELET VOLUME 11.1 fl (7.4-10.4); MONOCYTE # 0.8 10^3/ul (0.3-0.9); MONOCYTES % 13.4 % (0.0-11.0); NEUTROPHILS % 67.3 % (39.0-77.0); PLATELET COUNT 445 10^3/UL (140-415); RED BLOOD COUNT 2.53 10^6/ul (4.20-5.40); RED CELL DISTRIBUTION WIDTH 16.5 % (11.5-14.5); WHITE BLOOD COUNT 5.7 10^3/ul (4.8-10.8)
[2017-05-25 06:25] LABS: ALBUMIN 3.1 g/dl (3.3-4.9); ALBUMIN/GLOBULIN RATIO 0.73; CALCIUM 8.5 mg/dl (8.4-10.2); CREATININE 6.44 mg/dl (0.44-1.00); POTASSIUM 4.3 mmol/L (3.5-5.1); TOTAL PROTEIN 7.3 g/dl (6.1-8.1)
[2017-05-25] MEDS: DIPHENHYDRAMINE 50 MG INJ IV PRN (07:38)
[2017-05-25 07:45] VITALS: BP 134/65; RESP 18
[2017-05-25] MEDS: FOLIC ACID 1 MG TAB PO SCH (09:28)
[2017-05-25] MEDS: LANTHANUM 500 MG CHEW PO SCH ×3 (09:28→21:18)
[2017-05-25] MEDS: BACITRACIN/POLYMYXIN 28.35 GM OINT TOP SCH ×2 (09:28→21:17)
[2017-05-25] MEDS: SEVELAMER CARBONATE 0.8 GM PKT PO SCH ×3 (09:28→17:18)
[2017-05-25] MEDS: DOXYCYCLINE 100 MG TAB PO SCH ×2 (09:28→21:18)
[2017-05-25] MEDS: LOSARTAN 50 MG TAB PO SCH ×2 (09:30→21:18)
[2017-05-25] MEDS: AMLODIPINE 5 MG TAB PO SCH ×2 (09:31→21:18)
[2017-05-25] MEDS: MEROPENEM 500MG/50 ML (PMX) 50 ML IVPB SCH (09:32)
--- NOTE | 2017-05-25 10:21 | CONS ---
Date/Time of Note Date/Time of Note DATE: 05/25/17 TIME: 10:18 Assessment/Plan Assessment/Plan Additional Assessment/Plan 1. Positive troponin in the setting of renal failure with a history of nonischemic cardiomyopathy by catheterization December 2015, thus likely a marker of chronic cardiomyopathy more than suggestive of acute coronary syndrome.- minimal uptrend/NO cp/no ischemia by lexiscan this admission - BETTER NOW 2. Cardiomyopathy with decreased left ventricular ejection fraction 40% by mot recent echo - better now, stable overall. 3. Hypertension-reasonable control- well Rx now. 4. Dyslipidemia. 5. Acute cholecystitis. Now post-op s/p Lap marvin with mary revealing possible hematoma collection - recovering slowly. 6. Endstage renal dialysis on hemodialysis - on HD as needed. 7. Anemia- H/H stable. 8. Hyperkalemia-improved 9. CHF-systolic acute on chronic - better now. Consultation Date/Type/Reason Admit Date/Time May 05, 2017 at 18:31 Initial Consult Date 05/06/17 Type of Consultation: cardiology Referring Provider: REMI SIMPSON MD 24 HR Interval Summary Free Text/Dictation NO acute events - BP in good range - will adjust rx as needed - recovering slowly. ROS: No fever, no chills, no nausea, no vomiting, no diarrhea/constipation No recent weight changes No chest pain, no PND, no orthopnea No dizziness, blurred vision No thirst, no heat or cold intolerance (better now) Exam/Review of Systems Vital Signs Vitals Vital Signs Date Time Temp Pulse Resp B/P Pulse Ox O2 Delivery O2 Flow Rate FiO2 05/25/17 09:59 Nasal Cannula 3.0 05/25/17 08:22 84 20 95 05/25/17 07:45 98.7 134/65 05/24/17 08:22 21 Intake and Output 05/24/17 05/24/17 05/25/17 15:00 23:00 07:00 Intake Total 350 ml 1310 ml 200 ml Output Total 3300 ml 3000 ml Balance -2950 ml -1690 ml 200 ml Exam General: WN/WD/NAD, AOx 3 HEENT: Unicetric/atraumatic/EOMI (follows commands) NECK: JVD elevated, no thyromegaly Lymph: no lymphadenopathy HEART: regular with no S3, II/ systolic murmur at apex, PMI L, ICD LUNGS: Coarse sounds ABD: soft, NT, ND, +BS - post op : Intact Neuro: non focal SKIN: chronic changes EXT: trace edema Results Result Diagram: 05/25/17 0454 05/25/17 0456 Results 24 hrs Laboratory Tests Test 05/24/17 13:34 05/25/17 04:54 05/25/17 04:56 White Blood Count 9.0 5.7 # Red Blood Count 2.62 L 2.53 L Hemoglobin 8.3 L 8.0 L Hematocrit 25.7 L 25.9 L Mean Corpuscular Volume 98.1 102.4 H Mean Corpuscular Hemoglobin 31.7 31.6 Mean Corpuscular Hemoglobin Concent 32.3 30.9 L Red Cell Distribution Width 16.4 H 16.5 H Platelet Count 467 H 445 H Mean Platelet Volume 10.4 11.1 H Neutrophils % 79.6 H 67.3 Lymphocytes % 7.4 L 12.7 L Monocytes % 9.1 13.4 H Eosinophils % 2.5 4.7 Basophils % 0.7 0.9 Nucleated Red Blood Cells % 0.0 0.0 Neutrophils # (Manual) 7.2 3.9 Lymphocytes # 0.7 L 0.7 L Monocytes # 0.8 0.8 Eosinophils # 0.2 0.3 Basophils # 0.1 0.1 Nucleated Red Blood Cells # 0.0 0.0 Sodium Level 135 Potassium Level 4.3 Chloride Level 97 Carbon Dioxide Level 28 Anion Gap 14 Blood Urea Nitrogen 38 H Creatinine 6.44 H Glucose Level 78 Calcium Level 8.5 Total Bilirubin 0.0 L Direct Bilirubin 0.00 Indirect Bilirubin 0.0 Aspartate Amino Transf (AST/SGOT) 41 Alanine Aminotransferase (ALT/SGPT) 21 Alkaline Phosphatase 885 H Total Protein 7.3 Albumin 3.1 L Globulin 4.20 H Albumin/Globulin Ratio 0.73 Medications Medications Current Medications Amlodipine Besylate (Norvasc) 5 mg BID PO Last administered on 05/25/17 09:31 ; Admin Dose 5 MG; Start 05/06/17 at 09:00 Atorvastatin Calcium (Lipitor) 20 mg QHS PO Last administered on 05/24/17 21: 06; Admin Dose 20 MG; Start 05/06/17 at 21:00 Carvedilol (Coreg) 25 mg BID PO Last administered on 05/25/17 09:29; Admin Dose 25 MG; Start 05/06/17 at 09:00 Cinacalcet (Sensipar) 60 mg DAILY PO Last administered on 05/24/17 09:18; Admin Dose 60 MG; Start 05/06/17 at 09:00 Diphenhydramine HCl (Benadryl) 50 mg Q12H PRN PO ITCHING Last administered on 05:40; Admin Dose 50 MG; Start 05/06/17 at 00:00 Docusate Sodium (Colace) 100 mg BID PRN PO CONSTIPATION Last administered on 20:06; Admin Dose 100 MG; Start 05/06/17 at 00:00 Folic Acid (Folic Acid) 1 mg DAILY PO Last administered on 05/25/17 09:28; Admin Dose 1 MG; Start 05/06/17 at 09:00 Lanthanum Carbonate (Fosrenol) 500 mg TID PO Last administered on 05/25/17 09: 28; Admin Dose 500 MG; Start 05/06/17 at 09:00 Losartan Potassium (Cozaar) 50 mg BID PO Last administered on 05/25/17 09:30; Admin Dose 50 MG; Start 05/06/17 at 09:00 Pantoprazole (Protonix Tab) 40 mg DAILY@06 PO Last administered on 05/25/17 05 :54; Admin Dose 40 MG; Start 05/06/17 at 06:00 Acetaminophen (Tylenol Tab) 650 mg Q6H PRN PO PAIN LEVEL 1-3 OR FEVER; Start at 00:00 Acetaminophen (Tylenol Supp) 650 mg Q6H PRN [place] PAIN LEVEL 1-3 OR FEVER; Start 05/06/17 at 00:00 Acetaminophen/ Hydrocodone Bitart ([place] (5/325)) 1 tab Q6H PRN PO MODERATE PAIN LEVEL 4-6 Last administered on 05/13/17 09:02; Admin Dose 1 TAB; Start at 00:00 Bisacodyl (Dulcolax) 5 mg DAILY PRN PO CONSTIPATION; Start 05/06/17 at 00:00 Ondansetron HCl 4 mg 4 mg Q4H PRN IV NAUSEA AND/OR VOMITING Last administered on 05/24/17 21:14; Admin Dose 4 MG; Start 05/06/17 at 15:00 Sodium Chloride (NS) 1,000 ml @ 0 mls/hr Q0M PRN IV TO KEEP SBP ABOVE 90; Start 05/06/17 at 17:42 Diphenhydramine HCl (Benadryl) 25 mg QHS PRN IV INSOMNIA Last administered on 07:38; Admin Dose 25 MG; Start 05/08/17 at 12:30 Hydromorphone HCl (Dilaudid) 1 mg Q4H PRN IV SEVERE PAIN LEVEL 7-10 Last administered on 05/25/17 09:54; Admin Dose 1 MG; Start 05/09/17 at 16:00 Oxycodone/ Acetaminophen (Percocet (5/ 325)) 1 tab Q4H PRN PO PAIN Last administered on 05/24/17 17:18; Admin Dose 1 TAB; Start 05/13/17 at 09:30 Hydralazine HCl (Apresoline) 100 mg Q8 PO Last administered on 05/25/17 05:54 ; Admin Dose 100 MG; Start 05/13/17 at 22:00 Enoxaparin Sodium (Lovenox) 30 mg Q24H SC Last administered on 05/18/17 15:14; Admin Dose 30 MG; Start 05/14/17 at 14:00; Status Future Hold Diphenhydramine HCl 25 mg 25 mg Q6H PRN IV PRURITUS Last administered on 18:28; Admin Dose 25 MG; Start 05/19/17 at 11:00 Meropenem/Sodium Chloride (Merrem 500mg/50 ml(Pmx)) 50 ml @ 100 mls/hr DAILY IVPB Last administered on 05/25/17 09:32; Admin Dose 100 MLS/HR; Start at 13:00 Doxycycline Hyclate (Vibramycin) 100 mg BID PO Last administered on 05/25/17 09:28; Admin Dose 100 MG; Start 05/21/17 at 21:00 Bacitracin/ Polymyxin B Sulfate 1 applic 1 applic BID TOP Last administered on 05/25/17 09:28; Admin Dose 1 APPLIC; Start 05/21/17 at 13:52 Fluconazole (Diflucan 200 Mg/ NS (Pmx)) 100 ml @ 100 mls/hr Q24H IVPB Last administered on 05/24/17t 23:09; Admin Dose 100 MLS/HR; Start 05/23/17 at 23:30 ; Stop 05/30/17 at 18:00 KEITH THOMAS MD May 25, 2017 10:21
[2017-05-25] MEDS: CINACALCET 30 MG TAB PO SCH (10:59)
--- NOTE | 2017-05-25 12:36 | PN ---
Date/Time of Note Date/Time of Note DATE: 05/25/17 TIME: 12:31 Assessment/Plan Lines/Catheters IV Catheter Type (from [facility]): Saline Lock Cerda in Place (from [facility]): No Assessment/Plan Chief Complaint/Hosp Course 1.Acalculous Cholecystitis: s/p lap marvin; abdominal pain improved US abdomen noted, CT guided drainage not done- correction was made on the read, no drainable fluid collection; fluid size decreased from prior read on CT; no fevers, wbc coming down -increase ambulation as tolerated -IS-patient must use -Ice pack to abdominal wall; -pain management -may be dc'd home per medical team; patient to follow in office in 1-2 weeks 2. ESRD with HD -continue medical management 3.Shortness of breath and intermittent use of supplemental oxygen :CT noted with pleural and pericardial effusion. cxr: chf; improved; breathing comfortably -supplemental O2 to maintain O2 sat >92% -as above -medical management 4. Macrocytic anemia: h/h stable, no acute bleed noted -monitor and transfuse as needed 5. Leukocytosis:normalized -monitor and trend 6. Hypertension: improved -medical management -continue HD 7. Hypoalbuminemia:Likely nutritional, min improved -optimize nutrition 8. Pericardial effusion with pleural effusion; chf -fluid management with diuresis and hd -per cardiology 9. Hyponatremia: -judicious fluids 10. UTI/funguria: no dysuria: urine from 05/18 with bacteria but no sensitivities. UA resent: cultures noted -antimicrobials per sensitivity -frequent bladder emptying Patient seen and examined in collaboration with Dr. Alex Frazier. Thank you. Problems: Subjective 24 Hr Interval Summary Feels well. No fevers, chills, sob, cp, palpitations, n/v/d/dysuria. No abdominal pain. +bowel function. WBC normalized. Exam/Review of Systems Vital Signs Vitals Vital Signs Date Time Temp Pulse Resp B/P Pulse Ox O2 Delivery O2 Flow Rate FiO2 05/25/17 09:59 Nasal Cannula 3.0 05/25/17 08:22 84 20 95 05/25/17 07:45 98.7 134/65 05/24/17 08:22 21 Intake and Output 05/24/17 05/24/17 05/25/17 15:00 23:00 07:00 Intake Total 350 ml 1310 ml 200 ml Output Total 3300 ml 3000 ml Balance -2950 ml -1690 ml 200 ml Exam Free Text/Dictation Constitutional: alert, oriented; in good spirits Psych: pleasant Head: atraumatic, normocephalic Eyes: nl lids, nl sclera ENMT: No mucosa pink and moist (dry) Neck: non-tender, supple Respiratory: diminished; supplemental O2 Cardiovascular: regular rate and rhythm No edema Gastrointestinal: bowel sounds, soft, nontender improved. Right lower quad sutures in place. Other incisions dry - no bleed noted. No distended Genitourinary - Female: nl external genitalia Musculoskeletal: nl gait and stance, No muscle weakness, BLE no edema Extremities: normal pulses, TANIA: fistula +thrill/bruit No edema Neurological: nl mental status, nl speech, nl strength Skin: No rash or lesions, dry Lymph: No nl lymph nodes Results Result Diagram: 05/25/17 0454 05/25/17 0456 [place] ANDRADE NP May 25, 2017 12:36
[2017-05-25] MEDS: ONDANSETRON 4 MG INJ IV PRN ×2 (13:58→17:18)
[2017-05-25 14:39] VITALS: BP 130/66; RESP 18
--- NOTE | 2017-05-25 18:00 | PN ---
Date/Time of Note Date/Time of Note DATE: 05/25/17 TIME: 17:59 Assessment/Plan VTE Prophylaxis VTE Prophylaxis Intervention: other Lines/Catheters IV Catheter Type (from Nrs): Saline Lock Urinary Cath still in place: No Assessment/Plan Chief Complaint/Hosp Course 1. Acalculous cholecystitis s/p ,Lap marvin with some fluid collection 2 Pneumonia 3 Hyperkalemia hx 4 ESRD on HD M/W/F 5 Elevated Troponin? ACS however in ESRD +elevated trop however nuclear stress test negative 6 HTN 7Cardiomyopathy 8 s/pABD SITE BLEEDING 9 don[place] glabrata plan per id hd antibiotic in meropenem refused snf ck labs Problems: Subjective 24 Hr Interval Summary Respiratory: shortness of breath (better) Gastrointestinal: No pain Exam/Review of Systems Vital Signs Vitals Vital Signs Date Time Temp Pulse Resp B/P Pulse Ox O2 Delivery O2 Flow Rate FiO2 05/25/17 14:39 99.0 88 18 130/66 96 05/25/17 14:29 Nasal Cannula 3.0 05/24/17 08:22 21 Intake and Output 05/24/17 05/24/17 05/25/17 15:00 23:00 07:00 Intake Total 350 ml 1310 ml 200 ml Output Total 3300 ml 3000 ml Balance -2950 ml -1690 ml 200 ml Exam Neck: supple Respiratory: diminished breath sounds Cardiovascular: regular rate and rhythm Gastrointestinal: soft Musculoskeletal: nl extremities to inspection Extremities: normal pulses Results Result Diagram: 05/25/17 0454 05/25/17 0456 Results 24 hrs Laboratory Tests Test 05/25/17 04:54 05/25/17 04:56 White Blood Count 5.7 # Red Blood Count 2.53 L Hemoglobin 8.0 L Hematocrit 25.9 L Mean Corpuscular Volume 102.4 H Mean Corpuscular Hemoglobin 31.6 Mean Corpuscular Hemoglobin Concent 30.9 L Red Cell Distribution Width 16.5 H Platelet Count 445 H Mean Platelet Volume 11.1 H Neutrophils % 67.3 Lymphocytes % 12.7 L Monocytes % 13.4 H Eosinophils % 4.7 Basophils % 0.9 Nucleated Red Blood Cells % 0.0 Neutrophils # (Manual) 3.9 Lymphocytes # 0.7 L Monocytes # 0.8 Eosinophils # 0.3 Basophils # 0.1 Nucleated Red Blood Cells # 0.0 Sodium Level 135 Potassium Level 4.3 Chloride Level 97 Carbon Dioxide Level 28 Anion Gap 14 Blood Urea Nitrogen 38 H Creatinine 6.44 H Glucose Level 78 Calcium Level 8.5 Total Bilirubin 0.0 L Direct Bilirubin 0.00 Indirect Bilirubin 0.0 Aspartate Amino Transf (AST/SGOT) 41 Alanine Aminotransferase (ALT/SGPT) 21 Alkaline Phosphatase 885 H Total Protein 7.3 Albumin 3.1 L Globulin 4.20 H Albumin/Globulin Ratio 0.73 Medications Medications Current Medications Amlodipine Besylate (Norvasc) 5 mg BID PO Last administered on 05/25/17 09:31 ; Admin Dose 5 MG; Start 05/06/17 at 09:00 Atorvastatin Calcium (Lipitor) 20 mg QHS PO Last administered on 05/24/17 21: 06; Admin Dose 20 MG; Start 05/06/17 at 21:00 Carvedilol (Coreg) 25 mg BID PO Last administered on 05/25/17 09:29; Admin Dose 25 MG; Start 05/06/17 at 09:00 Cinacalcet (Sensipar) 60 mg DAILY PO Last administered on 05/25/17 10:59; Admin Dose 60 MG; Start 05/06/17 at 09:00 Diphenhydramine HCl (Benadryl) 50 mg Q12H PRN PO ITCHING Last administered on 05:40; Admin Dose 50 MG; Start 05/06/17 at 00:00 Docusate Sodium (Colace) 100 mg BID PRN PO CONSTIPATION Last administered on 20:06; Admin Dose 100 MG; Start 05/06/17 at 00:00 Folic Acid (Folic Acid) 1 mg DAILY PO Last administered on 05/25/17 09:28; Admin Dose 1 MG; Start 05/06/17 at 09:00 Lanthanum Carbonate (Fosrenol) 500 mg TID PO Last administered on 05/25/17 13: 54; Admin Dose 500 MG; Start 05/06/17 at 09:00 Losartan Potassium (Cozaar) 50 mg BID PO Last administered on 05/25/17 09:30; Admin Dose 50 MG; Start 05/06/17 at 09:00 Pantoprazole (Protonix Tab) 40 mg DAILY@06 PO Last administered on 05/25/17 05 :54; Admin Dose 40 MG; Start 05/06/17 at 06:00 Acetaminophen (Tylenol Tab) 650 mg Q6H PRN PO PAIN LEVEL 1-3 OR FEVER; Start at 00:00 Acetaminophen (Tylenol Supp) 650 mg Q6H PRN [place] PAIN LEVEL 1-3 OR FEVER; Start 05/06/17 at 00:00 Acetaminophen/ Hydrocodone Bitart ([place] (5/325)) 1 tab Q6H PRN PO MODERATE PAIN LEVEL 4-6 Last administered on 05/13/17 09:02; Admin Dose 1 TAB; Start at 00:00 Bisacodyl (Dulcolax) 5 mg DAILY PRN PO CONSTIPATION; Start 05/06/17 at 00:00 Ondansetron HCl 4 mg 4 mg Q4H PRN IV NAUSEA AND/OR VOMITING Last administered on 05/25/17 17:18; Admin Dose 4 MG; Start 05/06/17 at 15:00 Sodium Chloride (NS) 1,000 ml @ 0 mls/hr Q0M PRN IV TO KEEP SBP ABOVE 90; Start 05/06/17 at 17:42 Diphenhydramine HCl (Benadryl) 25 mg QHS PRN IV INSOMNIA Last administered on 07:38; Admin Dose 25 MG; Start 05/08/17 at 12:30 Hydromorphone HCl (Dilaudid) 1 mg Q4H PRN IV SEVERE PAIN LEVEL 7-10 Last administered on 05/25/17 17:20; Admin Dose 1 MG; Start 05/09/17 at 16:00 Oxycodone/ Acetaminophen (Percocet (5/ 325)) 1 tab Q4H PRN PO PAIN Last administered on 05/24/17 17:18; Admin Dose 1 TAB; Start 05/13/17 at 09:30 Hydralazine HCl (Apresoline) 100 mg Q8 PO Last administered on 05/25/17 13:54 ; Admin Dose 100 MG; Start 05/13/17 at 22:00 Enoxaparin Sodium (Lovenox) 30 mg Q24H SC Last administered on 05/18/17 15:14; Admin Dose 30 MG; Start 05/14/17 at 14:00; Status Future Hold Diphenhydramine HCl 25 mg 25 mg Q6H PRN IV PRURITUS Last administered on 18:28; Admin Dose 25 MG; Start 05/19/17 at 11:00 Meropenem/Sodium Chloride (Merrem 500mg/50 ml(Pmx)) 50 ml @ 100 mls/hr DAILY IVPB Last administered on 05/25/17 09:32; Admin Dose 100 MLS/HR; Start at 13:00 Doxycycline Hyclate (Vibramycin) 100 mg BID PO Last administered on 05/25/17 09:28; Admin Dose 100 MG; Start 05/21/17 at 21:00 Bacitracin/ Polymyxin B Sulfate 1 applic 1 applic BID TOP Last administered on 05/25/17 09:28; Admin Dose 1 APPLIC; Start 05/21/17 at 13:52 Fluconazole (Diflucan 200 Mg/ NS (Pmx)) 100 ml @ 100 mls/hr Q24H IVPB Last administered on 05/24/17 23:09; Admin Dose 100 MLS/HR; Start 05/23/17 at 23:30 ; Stop 05/30/17 at 18:00 REMI SIMPSON MD May 25, 2017 18:00
[2017-05-25 20:36] VITALS: BP 124/57; RESP 20
[2017-05-25] MEDS: ATORVASTATIN 20 MG TAB PO SCH (21:18)
[2017-05-25] MEDS: FLUCONAZOLE 200 MG/NS (PMX) 100 ML IVPB SCH (23:19)
[2017-05-26] VITALS (10 sets, daily range): BP systolic 104–135; BP diastolic 58–66; PULSE 81–88; RESP 18–20
[2017-05-26] MEDS: ALBUTEROL 0.083% (NEB) 2.5 MG/3 ML AMP HHN SCH ×4 (01:34→20:12)
[2017-05-26] MEDS: IPRATROPIUM (NEB) 0.5 MG/2.5 ML AMP HHN SCH ×4 (01:34→20:12)
[2017-05-26] MEDS: HYDROmorphONE 1 MG/ML SYG IV PRN ×4 (01:49→20:19)
[2017-05-26] MEDS: DIPHENHYDRAMINE 50 MG INJ IV PRN ×3 (02:25→22:02)
[2017-05-26] MEDS: PANTOPRAZOLE (EC) 40 MG TAB PO SCH (05:35)
[2017-05-26 06:53] LABS: ALBUMIN/GLOBULIN RATIO 0.73; CALCIUM 8.3 mg/dl (8.4-10.2); CREATININE 8.45 mg/dl (0.44-1.00); POTASSIUM 4.3 mmol/L (3.5-5.1); TOTAL PROTEIN 7.1 g/dl (6.1-8.1)
[2017-05-26] MEDS: SEVELAMER CARBONATE 0.8 GM PKT PO SCH ×3 (07:35→17:20)
[2017-05-26] MEDS: AMLODIPINE 5 MG TAB PO SCH ×2 (09:00→20:27)
[2017-05-26] MEDS: LOSARTAN 50 MG TAB PO SCH ×2 (09:00→20:27)
[2017-05-26] MEDS: LANTHANUM 500 MG CHEW PO SCH ×3 (09:00→21:00)
[2017-05-26] MEDS: DOXYCYCLINE 100 MG TAB PO SCH ×2 (09:23→20:27)
[2017-05-26] MEDS: CINACALCET 30 MG TAB PO SCH (09:24)
[2017-05-26] MEDS: FOLIC ACID 1 MG TAB PO SCH (09:24)
[2017-05-26] MEDS: ONDANSETRON 4 MG INJ IV PRN ×2 (10:45→20:31)
[2017-05-26] MEDS: MEROPENEM 500MG/50 ML (PMX) 50 ML IVPB SCH (10:45)
[2017-05-26] MEDS: BACITRACIN/POLYMYXIN 28.35 GM OINT TOP SCH ×2 (10:47→20:28)
--- NOTE | 2017-05-26 11:02 | RADRPT ---
PROCEDURE: Chest 2 views. CLINICAL INDICATION: Shortness of breath. TECHNIQUE: PA and lateral views of the chest were obtained. COMPARISON: May 19, 2017 FINDINGS: The heart is large. Right-sided AICD has its lead over the heart and appears stable. Central pulmona ry vascular congestion and interstitial prominence is seen in both lungs. Retrocardiac opacity is st able. Right lower lung infiltrates, combined with small to moderate pleural effusion are observed. O sseous structures are intact. IMPRESSION: Cardiomegaly. Central pulmonary vascular congestion and interstitial prominence in both lungs. Stable retrocardiac opacity that may reflect left lower lobe atelectasis or infiltrate combined with small pleural effusion. Continued right lower lung infiltrates, combined small to moderate pleural effusion. RPTAT: AA .Bryan Montes De Oca MD, Date Time Electronically viewed and signed by .Bryan Montes De Oca MD, MD on 05/26/2017 11:02 .P/
--- NOTE | 2017-05-26 14:03 | CONS ---
Date/Time of Note Date/Time of Note DATE: 05/26/17 TIME: 14:01 Assessment/Plan Assessment/Plan Chief Complaint/Hosp Course IMPRESSION: 1. Positive troponin in the setting of renal failure with a history of nonischemic cardiomyopathy by catheterization December 2015, thus likely a marker of chronic cardiomyopathy more than suggestive of acute coronary syndrome.-minimal uptrend/NO cp/no ischemia by lexiscan this admission 2. Cardiomyopathy with decreased left ventricular ejection fraction 40% by mot recent echo 3. Hypertension-reasonable control 4. Dyslipidemia. 5. Acute cholecystitis. Now post-op s/p Lap marvin with mary revealing possible hematoma collection 6. Endstage renal dialysis on hemodialysis. 7. Anemia. 8. Hyperkalemia-improved 9. CHF-systolic acute on chronic Recc: -Continue coreg/norvasc/hydralazine with reasonable BP control -continue statin/asa -HD for volume removal aggresively with slowly improving volume status/Having today -Routine post-op care Problems: Consultation Date/Type/Reason Admit Date/Time May 05, 2017 at 18:31 Initial Consult Date 05/06/17 Type of Consultation: cardiology Reason for Consultation HTN Referring Provider: REMI SIMPSON MD Exam/Review of Systems Vital Signs Vitals Vital Signs Date Time Temp Pulse Resp B/P Pulse Ox O2 Delivery O2 Flow Rate FiO2 05/26/17 13:51 Nasal Cannula 2.0 05/26/17 08:00 97.9 83 20 135/65 98 05/24/17 08:22 21 Intake and Output 05/25/17 05/25/17 05/26/17 15:00 23:00 07:00 Intake Total 50 ml 660 ml 550 ml Balance 50 ml 660 ml 550 ml Exam Review of Systems: CONSTITUTIONAL: No fevers, chills. PULMONARY: No sob CARDIOVASCULAR: No chest pain/palpitations GASTROINTESTINAL: No nausea/vomiting. GENITOURINARY: No hematuria/dysuria. MUSCULOSKELETAL: No myagias/arthalgias. PSYCHIATRIC: The patient denies depression. NEUROLOGIC: No weakness Constitutional: other (sleeping) Psych: no complaints Head: normocephalic ENMT: mucosa pink and moist Neck: jvd (9 cm water), supple Respiratory: diminished breath sounds (at bases/B) Cardiovascular: regular rate and rhythm Gastrointestinal: non-tender, soft Musculoskeletal: muscle tone (normal) Extremities: edema (trace/B) Neurological: lethargic Results Result Diagram: 05/25/17 0454 05/26/17 0533 Results 24 hrs Laboratory Tests Test 05/26/17 05:33 Sodium Level 133 L Potassium Level 4.3 Chloride Level 95 L Carbon Dioxide Level 26 Anion Gap 16 Blood Urea Nitrogen 50 H Creatinine 8.45 #H Glucose Level 64 #L Calcium Level 8.3 L Total Bilirubin Direct Bilirubin Indirect Bilirubin Aspartate Amino Transf (AST/SGOT) 38 Alanine Aminotransferase (ALT/SGPT) 30 Alkaline Phosphatase 809 H Total Protein 7.1 Albumin 3.0 L Globulin 4.10 H Albumin/Globulin Ratio 0.73 Medications Medications Current Medications Amlodipine Besylate (Norvasc) 5 mg BID PO Last administered on 05/25/17 21:18 ; Admin Dose 5 MG; Start 05/06/17 at 09:00 Atorvastatin Calcium (Lipitor) 20 mg QHS PO Last administered on 05/25/17 21: 18; Admin Dose 20 MG; Start 05/06/17 at 21:00 Carvedilol (Coreg) 25 mg BID PO Last administered on 05/25/17 21:19; Admin Dose 25 MG; Start 05/06/17 at 09:00 Cinacalcet (Sensipar) 60 mg DAILY PO Last administered on 05/26/17 09:24; Admin Dose 60 MG; Start 05/06/17 at 09:00 Diphenhydramine HCl (Benadryl) 50 mg Q12H PRN PO ITCHING Last administered on 05:40; Admin Dose 50 MG; Start 05/06/17 at 00:00 Docusate Sodium (Colace) 100 mg BID PRN PO CONSTIPATION Last administered on 20:06; Admin Dose 100 MG; Start 05/06/17 at 00:00 Folic Acid (Folic Acid) 1 mg DAILY PO Last administered on 05/26/17 09:24; Admin Dose 1 MG; Start 05/06/17 at 09:00 Lanthanum Carbonate (Fosrenol) 500 mg TID PO Last administered on 05/25/17 21: 18; Admin Dose 500 MG; Start 05/06/17 at 09:00 Losartan Potassium (Cozaar) 50 mg BID PO Last administered on 05/25/17 21:18; Admin Dose 50 MG; Start 05/06/17 at 09:00 Pantoprazole (Protonix Tab) 40 mg DAILY@06 PO Last administered on 05/26/17 05 :35; Admin Dose 40 MG; Start 05/06/17 at 06:00 Acetaminophen (Tylenol Tab) 650 mg Q6H PRN PO PAIN LEVEL 1-3 OR FEVER; Start at 00:00 Acetaminophen (Tylenol Supp) 650 mg Q6H PRN [place] PAIN LEVEL 1-3 OR FEVER; Start 05/06/17 at 00:00 Acetaminophen/ Hydrocodone Bitart ([place] (5/325)) 1 tab Q6H PRN PO MODERATE PAIN LEVEL 4-6 Last administered on 05/13/17 09:02; Admin Dose 1 TAB; Start at 00:00 Bisacodyl (Dulcolax) 5 mg DAILY PRN PO CONSTIPATION; Start 05/06/17 at 00:00 Ondansetron HCl 4 mg 4 mg Q4H PRN IV NAUSEA AND/OR VOMITING Last administered on 05/26/17 10:45; Admin Dose 4 MG; Start 05/06/17 at 15:00 Sodium Chloride (NS) 1,000 ml @ 0 mls/hr Q0M PRN IV TO KEEP SBP ABOVE 90; Start 05/06/17 at 17:42 Diphenhydramine HCl (Benadryl) 25 mg QHS PRN IV INSOMNIA Last administered on 07:38; Admin Dose 25 MG; Start 05/08/17 at 12:30 Hydromorphone HCl (Dilaudid) 1 mg Q4H PRN IV SEVERE PAIN LEVEL 7-10 Last administered on 05/26/17 10:35; Admin Dose 1 MG; Start 05/09/17 at 16:00 Oxycodone/ Acetaminophen (Percocet (5/ 325)) 1 tab Q4H PRN PO PAIN Last administered on 05/24/17 17:18; Admin Dose 1 TAB; Start 05/13/17 at 09:30 Hydralazine HCl (Apresoline) 100 mg Q8 PO Last administered on 05/26/17 05:36 ; Admin Dose 100 MG; Start 05/13/17 at 22:00 Enoxaparin Sodium (Lovenox) 30 mg Q24H SC Last administered on 05/18/17 15:14; Admin Dose 30 MG; Start 05/14/17 at 14:00; Status Future Hold Diphenhydramine HCl 25 mg 25 mg Q6H PRN IV PRURITUS Last administered on 12:08; Admin Dose 25 MG; Start 05/19/17 at 11:00 Meropenem/Sodium Chloride (Merrem 500mg/50 ml(Pmx)) 50 ml @ 100 mls/hr DAILY IVPB Last administered on 05/26/17 10:45; Admin Dose 100 MLS/HR; Start at 13:00 Doxycycline Hyclate (Vibramycin) 100 mg BID PO Last administered on 05/26/17 09:23; Admin Dose 100 MG; Start 05/21/17 at 21:00 Bacitracin/ Polymyxin B Sulfate 1 applic 1 applic BID TOP Last administered on 05/26/17 10:47; Admin Dose 1 APPLIC; Start 05/21/17 at 13:52 Fluconazole (Diflucan 200 Mg/ NS (Pmx)) 100 ml @ 100 mls/hr Q24H IVPB Last administered on 05/25/17 23:19; Admin Dose 100 MLS/HR; Start 05/23/17 at 23:30 ; Stop 05/30/17 at 18:00 DEONNA DENT May 26, 2017 14:03
[2017-05-26] MEDS: OXYCODONE/ACETAMINOPHEN (5/325) TAB PO PRN (17:20)
[2017-05-26] MEDS: ATORVASTATIN 20 MG TAB PO SCH (20:27)
--- NOTE | 2017-05-26 23:10 | PN ---
Date/Time of Note Date/Time of Note DATE: 05/26/17 TIME: 23:10 Assessment/Plan Lines/Catheters IV Catheter Type (from [facility]): Saline Lock Cerda in Place (from Nrs): No Assessment/Plan Chief Complaint/Hosp Course 1.Acalculous Cholecystitis: s/p lap marvin; abdominal pain improved US abdomen noted, CT guided drainage not done- correction was made on the read, no drainable fluid collection; fluid size decreased from prior read on CT; no fevers, wbc coming down -increase ambulation as tolerated -IS-patient must use -Ice pack to abdominal wall; -pain management -may be dc'd home per medical team; patient to follow in office in 1-2 weeks 2. ESRD with HD -continue medical management 3.Shortness of breath and intermittent use of supplemental oxygen :CT noted with pleural and pericardial effusion. cxr: chf; improved; breathing comfortably -supplemental O2 to maintain O2 sat >92% -as above -medical management 4. Macrocytic anemia: h/h stable, no acute bleed noted -monitor and transfuse as needed 5. Leukocytosis:normalized -monitor and trend 6. Hypertension: improved -medical management -continue HD 7. Hypoalbuminemia:Likely nutritional, min improved -optimize nutrition 8. Pericardial effusion with pleural effusion; chf -fluid management with diuresis and hd -per cardiology 9. Hyponatremia: -judicious fluids 10. UTI/funguria: no dysuria: urine from 05/18 with bacteria but no sensitivities. UA resent: cultures noted -antimicrobials per sensitivity -frequent bladder emptying Patient seen and examined in collaboration with Dr. Alex Frazier. Thank you. Problems: Exam/Review of Systems Vital Signs Vitals Vital Signs Date Time Temp Pulse Resp B/P Pulse Ox O2 Delivery O2 Flow Rate FiO2 05/26/17 20:31 98.4 86 18 128/58 97 05/26/17 20:14 3.0 05/26/17 20:12 Nasal Cannula 05/24/17 08:22 21 Intake and Output 05/25/17 05/25/17 05/26/17 15:00 23:00 07:00 Intake Total 50 ml 660 ml 550 ml Balance 50 ml 660 ml 550 ml Results Result Diagram: 05/25/17 0454 05/26/17 0533 NJ ANDRADE NP May 26, 2017 23:10
[2017-05-26] MEDS: FLUCONAZOLE 200 MG/NS (PMX) 100 ML IVPB SCH (23:21)
--- NOTE | 2017-05-26 23:24 | PN ---
Date/Time of Note Date/Time of Note DATE: 05/26/17 TIME: 23:23 Assessment/Plan VTE Prophylaxis VTE Prophylaxis Intervention: other Lines/Catheters IV Catheter Type (from Nrs): Saline Lock Urinary Cath still in place: No Assessment/Plan Chief Complaint/Hosp Course 1. Acalculous cholecystitis s/p ,Lap marvin with some fluid collection 2 Pneumonia 3 Hyperkalemia hx 4 ESRD on HD M/W/F 5 Elevated Troponin? ACS however in ESRD +elevated trop however nuclear stress test negative 6 HTN 7Cardiomyopathy 8 s/pABD SITE BLEEDING 9 donato glabrata plan per id hd antibiotic in meropenem refused snf hd Problems: Subjective 24 Hr Interval Summary Gastrointestinal: decreased appetite, No pain Musculoskeletal: no complaints Skin: no complaints Neurologic: no complaints Exam/Review of Systems Vital Signs Vitals Vital Signs Date Time Temp Pulse Resp B/P Pulse Ox O2 Delivery O2 Flow Rate FiO2 05/26/17 20:31 98.4 86 18 128/58 97 05/26/17 20:14 3.0 05/26/17 20:12 Nasal Cannula 05/24/17 08:22 21 Intake and Output 05/25/17 05/25/17 05/26/17 15:00 23:00 07:00 Intake Total 50 ml 660 ml 550 ml Balance 50 ml 660 ml 550 ml Exam Neck: supple Respiratory: clear to auscultation Cardiovascular: regular rate and rhythm Gastrointestinal: soft Extremities: edema (positive) Results Result Diagram: 05/25/17 0454 05/26/17 0533 Results 24 hrs Laboratory Tests Test 05/26/17 05:33 Sodium Level 133 L Potassium Level 4.3 Chloride Level 95 L Carbon Dioxide Level 26 Anion Gap 16 Blood Urea Nitrogen 50 H Creatinine 8.45 #H Glucose Level 64 #L Calcium Level 8.3 L Total Bilirubin Direct Bilirubin Indirect Bilirubin Aspartate Amino Transf (AST/SGOT) 38 Alanine Aminotransferase (ALT/SGPT) 30 Alkaline Phosphatase 809 H Total Protein 7.1 Albumin 3.0 L Globulin 4.10 H Albumin/Globulin Ratio 0.73 Medications Medications Current Medications Amlodipine Besylate (Norvasc) 5 mg BID PO Last administered on 05/26/17 20:27 ; Admin Dose 5 MG; Start 05/06/17 at 09:00 Atorvastatin Calcium (Lipitor) 20 mg QHS PO Last administered on 05/26/17 20: 27; Admin Dose 20 MG; Start 05/06/17 at 21:00 Carvedilol (Coreg) 25 mg BID PO Last administered on 05/26/17 20:28; Admin Dose 25 MG; Start 05/06/17 at 09:00 Cinacalcet (Sensipar) 60 mg DAILY PO Last administered on 05/26/17 09:24; Admin Dose 60 MG; Start 05/06/17 at 09:00 Diphenhydramine HCl (Benadryl) 50 mg Q12H PRN PO ITCHING Last administered on 05:40; Admin Dose 50 MG; Start 05/06/17 at 00:00 Docusate Sodium (Colace) 100 mg BID PRN PO CONSTIPATION Last administered on 20:06; Admin Dose 100 MG; Start 05/06/17 at 00:00 Folic Acid (Folic Acid) 1 mg DAILY PO Last administered on 05/26/17 09:24; Admin Dose 1 MG; Start 05/06/17 at 09:00 Lanthanum Carbonate (Fosrenol) 500 mg TID PO Last administered on 05/25/17 21: 18; Admin Dose 500 MG; Start 05/06/17 at 09:00 Losartan Potassium (Cozaar) 50 mg BID PO Last administered on 05/26/17 20:27; Admin Dose 50 MG; Start 05/06/17 at 09:00 Pantoprazole (Protonix Tab) 40 mg DAILY@06 PO Last administered on 05/26/17 05 :35; Admin Dose 40 MG; Start 05/06/17 at 06:00 Acetaminophen (Tylenol Tab) 650 mg Q6H PRN PO PAIN LEVEL 1-3 OR FEVER; Start at 00:00 Acetaminophen (Tylenol Supp) 650 mg Q6H PRN [place] PAIN LEVEL 1-3 OR FEVER; Start 05/06/17 at 00:00 Acetaminophen/ Hydrocodone Bitart ([place] (5/325)) 1 tab Q6H PRN PO MODERATE PAIN LEVEL 4-6 Last administered on 05/13/17 09:02; Admin Dose 1 TAB; Start at 00:00 Bisacodyl (Dulcolax) 5 mg DAILY PRN PO CONSTIPATION; Start 05/06/17 at 00:00 Ondansetron HCl 4 mg 4 mg Q4H PRN IV NAUSEA AND/OR VOMITING Last administered on 05/26/17 20:31; Admin Dose 4 MG; Start 05/06/17 at 15:00 Sodium Chloride (NS) 1,000 ml @ 0 mls/hr Q0M PRN IV TO KEEP SBP ABOVE 90; Start 05/06/17 at 17:42 Diphenhydramine HCl (Benadryl) 25 mg QHS PRN IV INSOMNIA Last administered on 07:38; Admin Dose 25 MG; Start 05/08/17 at 12:30 Hydromorphone HCl (Dilaudid) 1 mg Q4H PRN IV SEVERE PAIN LEVEL 7-10 Last administered on 05/26/17 20:19; Admin Dose 1 MG; Start 05/09/17 at 16:00 Oxycodone/ Acetaminophen (Percocet (5/ 325)) 1 tab Q4H PRN PO PAIN Last administered on 05/26/17 17:20; Admin Dose 1 TAB; Start 05/13/17 at 09:30 Hydralazine HCl (Apresoline) 100 mg Q8 PO Last administered on 05/26/17 22:03 ; Admin Dose 100 MG; Start 05/13/17 at 22:00 Enoxaparin Sodium (Lovenox) 30 mg Q24H SC Last administered on 05/18/17 15:14; Admin Dose 30 MG; Start 05/14/17 at 14:00; Status Future Hold Diphenhydramine HCl 25 mg 25 mg Q6H PRN IV PRURITUS Last administered on 22:02; Admin Dose 25 MG; Start 05/19/17 at 11:00 Meropenem/Sodium Chloride (Merrem 500mg/50 ml(Pmx)) 50 ml @ 100 mls/hr DAILY IVPB Last administered on 05/26/17 10:45; Admin Dose 100 MLS/HR; Start at 13:00 Doxycycline Hyclate (Vibramycin) 100 mg BID PO Last administered on 05/26/17 20:27; Admin Dose 100 MG; Start 05/21/17 at 21:00 Bacitracin/ Polymyxin B Sulfate 1 applic 1 applic BID TOP Last administered on 9/13/17at 20:28; Admin Dose 1 APPLIC; Start 05/21/17 at 13:52 Fluconazole (Diflucan 200 Mg/ NS (Pmx)) 100 ml @ 100 mls/hr Q24H IVPB Last administered on 05/25/17t 23:19; Admin Dose 100 MLS/HR; Start 05/23/17 at 23:30 ; Stop 05/30/17 at 18:00 REMI SIMPSON MD May 26, 2017 23:24
[2017-05-27] MEDS: HYDROmorphONE 1 MG/ML SYG IV PRN ×5 (00:35→17:52)
[2017-05-27] MEDS: IPRATROPIUM (NEB) 0.5 MG/2.5 ML AMP HHN SCH ×3 (01:52→13:21)
[2017-05-27] MEDS: ALBUTEROL 0.083% (NEB) 2.5 MG/3 ML AMP HHN SCH ×3 (01:52→13:21)
[2017-05-27 02:54] VITALS: BP 126/60; RESP 18
[2017-05-27] MEDS: PANTOPRAZOLE (EC) 40 MG TAB PO SCH (05:31)
[2017-05-27] MEDS: DIPHENHYDRAMINE 50 MG INJ IV PRN (05:48)
[2017-05-27] MEDS: SEVELAMER CARBONATE 0.8 GM PKT PO SCH ×3 (07:35→17:09)
[2017-05-27 08:00] VITALS: BP 124/59; RESP 20
[2017-05-27] MEDS: MEROPENEM 500MG/50 ML (PMX) 50 ML IVPB SCH (08:40)
[2017-05-27] MEDS: FOLIC ACID 1 MG TAB PO SCH (08:41)
[2017-05-27] MEDS: LOSARTAN 50 MG TAB PO SCH (08:41)
[2017-05-27] MEDS: LANTHANUM 500 MG CHEW PO SCH ×2 (08:42→12:03)
[2017-05-27] MEDS: AMLODIPINE 5 MG TAB PO SCH (08:42)
[2017-05-27] MEDS: BACITRACIN/POLYMYXIN 28.35 GM OINT TOP SCH (08:42)
[2017-05-27] MEDS: CINACALCET 30 MG TAB PO SCH (08:42)
[2017-05-27] MEDS: DOXYCYCLINE 100 MG TAB PO SCH (08:42)
[2017-05-27] MEDS: ONDANSETRON 4 MG INJ IV PRN ×3 (08:51→18:02)
--- NOTE | 2017-05-27 09:48 | PN ---
Date/Time of Note Date/Time of Note DATE: 05/27/17 TIME: 09:45 Assessment/Plan Lines/Catheters IV Catheter Type (from [facility]): Saline Lock Cerda in Place (from [facility]): No Assessment/Plan Chief Complaint/Hosp Course 1.Acalculous Cholecystitis: s/p lap marvin; abdominal pain improved US abdomen noted, CT guided drainage not done- correction was made on the read, no drainable fluid collection; fluid size decreased from prior read on CT; no fevers, wbc coming down -increase ambulation as tolerated -IS-patient must use -Ice pack to abdominal wall prn -may be dc'd home per medical team; patient to follow in office in 1-2 weeks 2. ESRD with HD -continue medical management 3.Shortness of breath and intermittent use of supplemental oxygen :CT noted with pleural and pericardial effusion. cxr: chf; improved; breathing comfortably -supplemental O2 to maintain O2 sat >92% -as above -medical management 4. Macrocytic anemia: h/h stable, no acute bleed noted -monitor and transfuse as needed 5. UTI/funguria: no dysuria: urine from 05/18 with bacteria but no sensitivities. UA resent: cultures noted -antimicrobials per sensitivity -frequent bladder emptying 6. Hypertension: improved -medical management -continue HD 7. Hypoalbuminemia:Likely nutritional, min improved -optimize nutrition 8. Pericardial effusion with pleural effusion; chf: breathing comfortably -fluid management with diuresis and hd -per cardiology Patient seen and examined in collaboration with Dr. Alex Frazier. Thank you. Problems: Subjective 24 Hr Interval Summary Much improved. No c/o abdominal pain/tenderness/discomfort. Breathing comfortably. No fevers, chills, sob, cp,palpitations, congested cough, chavarria, dizziness, n/v/d/dysuria, rash. Exam/Review of Systems Vital Signs Vitals Vital Signs Date Time Temp Pulse Resp B/P Pulse Ox O2 Delivery O2 Flow Rate FiO2 05/27/17 08:00 98.6 80 20 124/59 98 05/27/17 08:00 Nasal Cannula 2.0 05/24/17 08:22 21 Intake and Output 05/26/17 05/26/17 05/27/17 15:00 23:00 07:00 Intake Total 600 ml 700 ml 600 ml Output Total 4000 ml Balance -3400 ml 700 ml 600 ml Exam Free Text/Dictation Constitutional: alert, oriented Psych: pleasant Head: atraumatic, normocephalic Eyes: nl lids, nl sclera ENMT: No mucosa pink and moist (dry) Neck: non-tender, supple Respiratory: diminished; supplemental O2 Cardiovascular: regular rate and rhythm No edema Gastrointestinal: bowel sounds, soft, nontender. Right lower quad sutures in place. Other incisions dry - no bleed noted. No distended Genitourinary - Female: nl external genitalia Musculoskeletal: nl gait and stance, No muscle weakness, BLE no edema Extremities: normal pulses, TANIA: fistula +thrill/bruit No edema Neurological: nl mental status, nl speech, nl strength Skin: No rash or lesions, dry Lymph: No nl lymph nodes Results Result Diagram: 05/25/17 0454 05/26/17 0533 NJ ANDRADE NP May 27, 2017 09:48
[2017-05-27] MEDS: OXYCODONE/ACETAMINOPHEN (5/325) TAB PO PRN (10:29)
[2017-05-27 14:00] VITALS: BP_SYST 123; BP_SYST 124; BP_DIAS 61; BP_DIAS 63; PULSE 78; RESP 16; RESP 20
--- NOTE | 2017-05-27 14:15 | CONS ---
Date/Time of Note Date/Time of Note DATE: 05/27/17 TIME: 14:13 Assessment/Plan Assessment/Plan Chief Complaint/Hosp Course IMPRESSION: 1. Positive troponin in the setting of renal failure with a history of nonischemic cardiomyopathy by catheterization December 2015, thus likely a marker of chronic cardiomyopathy more than suggestive of acute coronary syndrome.-minimal uptrend/NO cp/no ischemia by lexiscan this admission 2. Cardiomyopathy with decreased left ventricular ejection fraction 40% by mot recent echo 3. Hypertension-reasonable control 4. Dyslipidemia. 5. Acute cholecystitis. Now post-op s/p Lap marvin with mary revealing possible hematoma collection 6. Endstage renal dialysis on hemodialysis. 7. Anemia. 8. Hyperkalemia-improved 9. CHF-systolic acute on chronic Recc: -Continue coreg/norvasc/hydralazine with reasonable BP control -continue statin/asa -HD for volume removal aggresively with slowly improving volume status/Having today -Routine post-op care -d/c planning Problems: Consultation Date/Type/Reason Admit Date/Time May 05, 2017 at 18:31 Initial Consult Date 05/06/17 Type of Consultation: cardiology Reason for Consultation positive troponin Referring Provider: REMI SIMPSON MD Exam/Review of Systems Vital Signs Vitals Vital Signs Date Time Temp Pulse Resp B/P Pulse Ox O2 Delivery O2 Flow Rate FiO2 05/27/17 14:00 99.1 78 16 124/63 97 Room Air 05/27/17 13:21 21 05/27/17 08:00 2.0 Intake and Output 05/26/17 05/26/17 05/27/17 15:00 23:00 07:00 Intake Total 600 ml 700 ml 600 ml Output Total 4000 ml Balance -3400 ml 700 ml 600 ml Exam Review of Systems: CONSTITUTIONAL: No fevers, chills. PULMONARY: No sob CARDIOVASCULAR: No chest pain/palpitations GASTROINTESTINAL: No nausea/vomiting. GENITOURINARY: No hematuria/dysuria. MUSCULOSKELETAL: No myagias/arthalgias. PSYCHIATRIC: The patient denies depression. NEUROLOGIC: No weakness Constitutional: alert, oriented Psych: no complaints Head: normocephalic ENMT: mucosa pink and moist Neck: jvd (9 cm water), supple Respiratory: diminished breath sounds (at bases/B) Cardiovascular: regular rate and rhythm Gastrointestinal: non-tender, soft Musculoskeletal: muscle tone (normal) Extremities: edema (none) Neurological: other (No focal deficits) Results Result Diagram: 05/25/17 0454 05/26/17 0533 Results 24 hrs Laboratory Tests Test 05/27/17 11:45 Lab Scanned Report REFERENCE LAB Medications Medications Current Medications Amlodipine Besylate (Norvasc) 5 mg BID PO Last administered on 05/27/17 08:42 ; Admin Dose 5 MG; Start 05/06/17 at 09:00 Atorvastatin Calcium (Lipitor) 20 mg QHS PO Last administered on 05/26/17 20: 27; Admin Dose 20 MG; Start 05/06/17 at 21:00 Carvedilol (Coreg) 25 mg BID PO Last administered on 05/27/17 08:41; Admin Dose 25 MG; Start 05/06/17 at 09:00 Cinacalcet (Sensipar) 60 mg DAILY PO Last administered on 05/27/17 08:42; Admin Dose 60 MG; Start 05/06/17 at 09:00 Diphenhydramine HCl (Benadryl) 50 mg Q12H PRN PO ITCHING Last administered on 05:40; Admin Dose 50 MG; Start 05/06/17 at 00:00 Docusate Sodium (Colace) 100 mg BID PRN PO CONSTIPATION Last administered on 20:06; Admin Dose 100 MG; Start 05/06/17 at 00:00 Folic Acid (Folic Acid) 1 mg DAILY PO Last administered on 05/27/17 08:41; Admin Dose 1 MG; Start 05/06/17 at 09:00 Lanthanum Carbonate (Fosrenol) 500 mg TID PO Last administered on 05/27/17 12: 03; Admin Dose 500 MG; Start 05/06/17 at 09:00 Losartan Potassium (Cozaar) 50 mg BID PO Last administered on 05/27/17 08:41; Admin Dose 50 MG; Start 05/06/17 at 09:00 Pantoprazole (Protonix Tab) 40 mg DAILY@06 PO Last administered on 05/27/17 05 :31; Admin Dose 40 MG; Start 05/06/17 at 06:00 Acetaminophen (Tylenol Tab) 650 mg Q6H PRN PO PAIN LEVEL 1-3 OR FEVER; Start at 00:00 Acetaminophen (Tylenol Supp) 650 mg Q6H PRN [place] PAIN LEVEL 1-3 OR FEVER; Start 05/06/17 at 00:00 Acetaminophen/ Hydrocodone Bitart ([place] (5/325)) 1 tab Q6H PRN PO MODERATE PAIN LEVEL 4-6 Last administered on 05/13/17 09:02; Admin Dose 1 TAB; Start at 00:00 Bisacodyl (Dulcolax) 5 mg DAILY PRN PO CONSTIPATION; Start 05/06/17 at 00:00 Ondansetron HCl 4 mg 4 mg Q4H PRN IV NAUSEA AND/OR VOMITING Last administered on 05/27/17 14:00; Admin Dose 4 MG; Start 05/06/17 at 15:00 Sodium Chloride (NS) 1,000 ml @ 0 mls/hr Q0M PRN IV TO KEEP SBP ABOVE 90; Start 05/06/17 at 17:42 Diphenhydramine HCl (Benadryl) 25 mg QHS PRN IV INSOMNIA Last administered on 07:38; Admin Dose 25 MG; Start 05/08/17 at 12:30 Hydromorphone HCl (Dilaudid) 1 mg Q4H PRN IV SEVERE PAIN LEVEL 7-10 Last administered on 05/27/17 13:52; Admin Dose 1 MG; Start 05/09/17 at 16:00 Oxycodone/ Acetaminophen (Percocet (5/ 325)) 1 tab Q4H PRN PO PAIN Last administered on 05/27/17 10:29; Admin Dose 1 TAB; Start 05/13/17 at 09:30 Hydralazine HCl (Apresoline) 100 mg Q8 PO Last administered on 05/27/17 05:32 ; Admin Dose 100 MG; Start 05/13/17 at 22:00 Enoxaparin Sodium (Lovenox) 30 mg Q24H SC Last administered on 05/18/17 15:14; Admin Dose 30 MG; Start 05/14/17 at 14:00; Status Future Hold Diphenhydramine HCl 25 mg 25 mg Q6H PRN IV PRURITUS Last administered on 05:48; Admin Dose 25 MG; Start 05/19/17 at 11:00 Meropenem/Sodium Chloride (Merrem 500mg/50 ml(Pmx)) 50 ml @ 100 mls/hr DAILY IVPB Last administered on 05/27/17 08:40; Admin Dose 100 MLS/HR; Start at 13:00 Doxycycline Hyclate (Vibramycin) 100 mg BID PO Last administered on 05/27/17 08:42; Admin Dose 100 MG; Start 05/21/17 at 21:00 Bacitracin/ Polymyxin B Sulfate 1 applic 1 applic BID TOP Last administered on 05/27/17 08:42; Admin Dose 1 APPLIC; Start 05/21/17 at 13:52 Fluconazole (Diflucan 200 Mg/ NS (Pmx)) 100 ml @ 100 mls/hr Q24H IVPB Last administered on 05/26/17 23:21; Admin Dose 100 MLS/HR; Start 05/23/17 at 23:30 ; Stop 05/30/17 at 18:00 DEONNA DENT May 27, 2017 14:15
--- NOTE | 2017-05-27 16:15 | PDOCDIS ---
Discharge Instructions CONDITION Patient Condition: Stable HOME CARE INSTRUCTIONS: Special Diet: RENAL ACTIVITY: Activity Restrictions: Slowly Increase Activity FOLLOW UP/APPOINTMENTS Follow-up Plan f/u dr brewer [address] smith [address] josue 2 wks REMI JOSUE MD May 27, 2017 16:15
[2017-05-27] MEDS ORDERED: BISA5TAB6 PO (16:20)
[2017-05-27] MEDS ORDERED: POLY30OI TOP (16:20)
[2017-05-27] MEDS ORDERED: ALBU2.5V3 HHN (16:20)
[2017-05-27] MEDS ORDERED: Ipratropium 0.02% (Neb) HHN (16:20)
[2017-05-27] MEDS ORDERED: DOXY100T2 PO (16:20)
[2017-05-27] MEDS ORDERED: HYDR-3498 PO (16:20)
[2017-05-27] MEDS ORDERED: HYDR-3672 PO (16:20)
--- NOTE | 2017-05-27 17:18 | PN ---
Date/Time of Note Date/Time of Note DATE: 05/27/17 TIME: 17:17 Assessment/Plan VTE Prophylaxis VTE Prophylaxis Intervention: other Lines/Catheters IV [facility] Urinary Cath still in place: No Assessment/Plan Chief Complaint/Hosp Course 1. Acalculous cholecystitis s/p ,Lap marvin with some fluid collection 2 Pneumonia 3 Hyperkalemia hx 4 ESRD on HD M/W/F 5 Elevated Troponin? ACS however in ESRD +elevated trop however nuclear stress test negative 6 HTN 7Cardiomyopathy 8 s/pABD SITE BLEEDING 9 don[place] glabr[place] plan per id hd antibiotic in meropenem refused snf HOME Problems: Subjective 24 Hr Interval Summary Respiratory: no complaints Cardiovascular: no complaints Exam/Review of Systems Vital Signs Vitals Vital Signs Date Time Temp Pulse Resp B/P Pulse Ox O2 Delivery O2 Flow Rate FiO2 05/27/17 14:00 98.8 76 20 123/61 96 05/27/17 14:00 Room Air 05/27/17 13:21 21 05/27/17 08:00 2.0 Intake and Output 05/26/17 05/26/17 05/27/17 15:00 23:00 07:00 Intake Total 600 ml 700 ml 600 ml Output Total 4000 ml Balance -3400 ml 700 ml 600 ml Exam Respiratory: clear to auscultation Cardiovascular: regular rate and rhythm Gastrointestinal: soft Musculoskeletal: nl extremities to inspection Results Result Diagram: 05/25/17 0454 05/26/17 0533 Results 24 hrs Laboratory Tests Test 05/27/17 11:45 Lab Scanned Report REFERENCE LAB Medications Medications Current Medications Amlodipine Besylate (Norvasc) 5 mg BID PO Last administered on 05/27/17 08:42 ; Admin Dose 5 MG; Start 05/06/17 at 09:00 Atorvastatin Calcium (Lipitor) 20 mg QHS PO Last administered on 05/26/17 20: 27; Admin Dose 20 MG; Start 05/06/17 at 21:00 Carvedilol (Coreg) 25 mg BID PO Last administered on 05/27/17 08:41; Admin Dose 25 MG; Start 05/06/17 at 09:00 Cinacalcet (Sensipar) 60 mg DAILY PO Last administered on 05/27/17 08:42; Admin Dose 60 MG; Start 05/06/17 at 09:00 Diphenhydramine HCl (Benadryl) 50 mg Q12H PRN PO ITCHING Last administered on 05:40; Admin Dose 50 MG; Start 05/06/17 at 00:00 Docusate Sodium (Colace) 100 mg BID PRN PO CONSTIPATION Last administered on 20:06; Admin Dose 100 MG; Start 05/06/17 at 00:00 Folic Acid (Folic Acid) 1 mg DAILY PO Last administered on 05/27/17 08:41; Admin Dose 1 MG; Start 05/06/17 at 09:00 Lanthanum Carbonate (Fosrenol) 500 mg TID PO Last administered on 05/27/17 12: 03; Admin Dose 500 MG; Start 05/06/17 at 09:00 Losartan Potassium (Cozaar) 50 mg BID PO Last administered on 05/27/17 08:41; Admin Dose 50 MG; Start 05/06/17 at 09:00 Pantoprazole (Protonix Tab) 40 mg DAILY@06 PO Last administered on 05/27/17 05 :31; Admin Dose 40 MG; Start 05/06/17 at 06:00 Acetaminophen (Tylenol Tab) 650 mg Q6H PRN PO PAIN LEVEL 1-3 OR FEVER; Start at 00:00 Acetaminophen (Tylenol Supp) 650 mg Q6H PRN [place] PAIN LEVEL 1-3 OR FEVER; Start 05/06/17 at 00:00 Acetaminophen/ Hydrocodone Bitart ([place] (5/325)) 1 tab Q6H PRN PO MODERATE PAIN LEVEL 4-6 Last administered on 05/13/17 09:02; Admin Dose 1 TAB; Start at 00:00 Bisacodyl (Dulcolax) 5 mg DAILY PRN PO CONSTIPATION; Start 05/06/17 at 00:00 Ondansetron HCl 4 mg 4 mg Q4H PRN IV NAUSEA AND/OR VOMITING Last administered on 05/27/17 14:00; Admin Dose 4 MG; Start 05/06/17 at 15:00 Sodium Chloride (NS) 1,000 ml @ 0 mls/hr Q0M PRN IV TO KEEP SBP ABOVE 90; Start 05/06/17 at 17:42 Diphenhydramine HCl (Benadryl) 25 mg QHS PRN IV INSOMNIA Last administered on 07:38; Admin Dose 25 MG; Start 05/08/17 at 12:30 Hydromorphone HCl (Dilaudid) 1 mg Q4H PRN IV SEVERE PAIN LEVEL 7-10 Last administered on 05/27/17 13:52; Admin Dose 1 MG; Start 05/09/17 at 16:00 Oxycodone/ Acetaminophen (Percocet (5/ 325)) 1 tab Q4H PRN PO PAIN Last administered on 05/27/17 10:29; Admin Dose 1 TAB; Start 05/13/17 at 09:30 Hydralazine HCl (Apresoline) 100 mg Q8 PO Last administered on 05/27/17 05:32 ; Admin Dose 100 MG; Start 05/13/17 at 22:00 Enoxaparin Sodium (Lovenox) 30 mg Q24H SC Last administered on 05/18/17 15:14; Admin Dose 30 MG; Start 05/14/17 at 14:00; Status Future Hold Diphenhydramine HCl 25 mg 25 mg Q6H PRN IV PRURITUS Last administered on 05:48; Admin Dose 25 MG; Start 05/19/17 at 11:00 Meropenem/Sodium Chloride (Merrem 500mg/50 ml(Pmx)) 50 ml @ 100 mls/hr DAILY IVPB Last administered on 05/27/17 08:40; Admin Dose 100 MLS/HR; Start at 13:00 Doxycycline Hyclate (Vibramycin) 100 mg BID PO Last administered on 05/27/17 08:42; Admin Dose 100 MG; Start 05/21/17 at 21:00 Bacitracin/ Polymyxin B Sulfate 1 applic 1 applic BID TOP Last administered on 05/27/17 08:42; Admin Dose 1 APPLIC; Start 05/21/17 at 13:52 Fluconazole (Diflucan 200 Mg/ NS (Pmx)) 100 ml @ 100 mls/hr Q24H IVPB Last administered on 05/26/17 23:21; Admin Dose 100 MLS/HR; Start 05/23/17 at 23:30 ; Stop 05/30/17 at 18:00 REMI SIMPSON MD May 27, 2017 17:18
[2017-05-27 20:56] VITALS: BP 113/62; RESP 18
== END 2017-05-27 20:15 | disposition home or self-care (01) | DRG 417 ==
LOC: E/R 15:36 → MS3 18:31 → MS4 05-06 12:51 → PP2 05-13 22:35
PROVIDERS: ADMIT Internal Medicine Nephrology; ATTEND Internal Medicine Nephrology
PROC: 5A1D60Z (ICD-10-PCS; 2017-05-07)
PROC: 30233N1 Transfusion of Nonautologous Red Blood Cells into Peripheral Vein, Percutaneous Approach (ICD-10-PCS; 2017-05-08)
PROC: 0FB04ZX Excision of Liver, Percutaneous Endoscopic Approach, Diagnostic (ICD-10-PCS; 2017-05-11)
PROC: 0FT44ZZ Resection of Gallbladder, Percutaneous Endoscopic Approach (ICD-10-PCS; principal; 2017-05-11 11:30)
DX: K81.9 Cholecystitis, unspecified (principal); N18.6 End stage renal disease; I50.23 Acute on chronic systolic (congestive) heart failure; J18.9 Pneumonia, unspecified organism; E87.0 Hyperosmolality and hypernatremia; I42.8 Other cardiomyopathies; I31.3 Pericardial effusion (noninflammatory); I13.2 Hypertensive heart and chronic kidney disease with heart failure and with stage 5 chronic kidney disease, or end stage renal disease; B37.49 Other urogenital candidiasis; E83.39 Other disorders of phosphorus metabolism; E87.5 Hyperkalemia; D53.9 Nutritional anemia, unspecified; E78.5 Hyperlipidemia, unspecified; R11.10 Vomiting, unspecified; I25.10 Atherosclerotic heart disease of native coronary artery without angina pectoris; Z99.2 Dependence on renal dialysis; Z95.810 Presence of automatic (implantable) cardiac defibrillator
CPT/HCPCS: 36415; 36430; 36600; 71010; 71020; 74176; 76700; 76705; 78452; 80048; 80053; 80076; 81001; 82150; 82550; 82553; 82803; 83690; 83735; 84100; 84484; 84703; 85025; 85610; 86704; 86709; 86803; 86850; 86900; 86901; 86920; 87040; 87081; 87086; 87340; 88304; 88307; 88313; 90935; 93005; 93017; 93306; 93970; 94640; 96374; 96375; 96376; 97116; 97161; 97530; A9500; A9505; J0295; J0690; J0696; J1100; J1170; J1200; J1644; J1650; J2185; J2250; J2270; J2405; J2543; J2597; J2710; J2785; J3010; J7030; J7040; P9016

== ENCOUNTER 2017-05-31 20:04 | Inpatient (IN) | payer MEDICARE, OTHER ==
[~2017-05-31] VITALS: Ht 160 cm; Wt 63.9 kg
[~2017-05-31 20:04] MED LIST changes: +ALBU2.5V3 HHN; +BACI28.35 TOP; +BISA5TAB6 PO; +DOXY100T2 PO; +HYDR-3498 PO; -HYDR-902 PO; -HYDR-906 PO; +Ipratropium 0.02% (Neb) HHN
[2017-05-31] MEDS ORDERED: ONDANSETRON 4 MG INJ IV STA (23:35)
[2017-05-31] MEDS ORDERED: morphine 4 MG/ML VIAL IV STA (23:35)
[2017-06-01] VITALS (18 sets, daily range): BP systolic 145–167; BP diastolic 75–90; PULSE 76–96; RESP 16–20; Ht 160 cm; Wt 63.9 kg
[2017-06-01 00:21] LABS: BASOPHILS % 0.5 % (0.0-2.0); EOSINOPHILS # 0.5 10^3/ul (0.0-0.5); EOSINOPHILS % 5.9 % (0.0-7.0); HEMATOCRIT 23.9 % (37.0-47.0); HEMOGLOBIN 7.4 g/dl (12.0-16.0); LYMPHOCYTES # 1.6 10^3/ul (0.8-2.9); LYMPHOCYTES % 19.8 % (15.0-51.0); MEAN CORPUSCULAR HEMOGLOBIN 31.8 pg (29.0-33.0); MEAN CORPUSCULAR VOLUME 102.6 fl (82.0-101.0); MEAN PLATELET VOLUME 10.7 fl (7.4-10.4); MONOCYTE # 0.8 10^3/ul (0.3-0.9); MONOCYTES % 10.1 % (0.0-11.0); NEUTROPHIL # 4.9 10^3/ul (1.6-7.5); NEUTROPHILS % 61.9 % (39.0-77.0); NUCLEATED RED BLOOD CELLS # 0.1 10^3/ul (0.0-0.0); NUCLEATED RED BLOOD CELLS% 1.3 /100WBC (0.0-0.0); PLATELET COUNT 433 10^3/UL (140-415); RED BLOOD COUNT 2.33 10^6/ul (4.20-5.40); RED CELL DISTRIBUTION WIDTH 17.1 % (11.5-14.5); WHITE BLOOD COUNT 7.9 10^3/ul (4.8-10.8)
[2017-06-01 00:41] LABS: ALBUMIN 3.2 g/dl (3.3-4.9); ALBUMIN/GLOBULIN RATIO 0.72; CREATININE 6.95 mg/dl (0.44-1.00); POTASSIUM 4.6 mmol/L (3.5-5.1); TOTAL PROTEIN 7.6 g/dl (6.1-8.1)
[2017-06-01 00:58] LABS: TROPONIN-I 0.139 ng/ml (0.00-0.12)
--- NOTE | 2017-06-01 01:51 | RADRPT ---
PROCEDURE: Portable chest x-ray. CLINICAL INDICATION: Abdominal pain. TECHNIQUE: Portable AP view of the chest. COMPARISON: 05/26/2017. FINDINGS: There are low lung volumes, limiting evaluation of the pulmonary vessels. There is mild bibasilar at electasis. The cardiac silhouette is enlarged. There is a right chest cardiac AICD. No pleural ef fusion is seen. There is no pneumothorax. There is no pneumoperitoneum. IMPRESSION: 1. Low lung volumes, limiting evaluation of the pulmonary vessels. 2. Mild bibasilar atelectasis. 3. Enlarged cardiac silhouette. 4. Cardiac AICD. RPTAT: HTAR .Rogelio Danielle MD, Date Time Electronically viewed and signed by .Rogelio Danielle MD, on 06/01/2017 01:51 .R/
--- NOTE | 2017-06-01 02:13 | RADRPT ---
PROCEDURE: CT ABDOMEN/PELVIS WITHOUT CONTRAST CLINICAL INDICATION: 47-year-old female with abdominal pain. TECHNIQUE: The study was performed utilizing a GE [employer]ed VCT 64-slice CT scanner. Direct axia l sections were obtained through the abdomen and pelvis without the use of intravenous contrast mate rial. Sagittal and coronal reformations were obtained. One or more of the following dose reduction t echniques were utilized: automated exposure control, adjustment of the mA and/or kV according to pat ient's size or use of iterative reconstruction technique. The images were reviewed on a PACS [facility]st [facility]. CTD/vol = 9.68 mGy; Total Exam DLP = 559.11 mGy-cm. COMPARISON: CT abdomen/pelvis May 15, 2017. FINDINGS: The distal aspect of an AICD with electrode is present. Cardiomegaly is visualized. There is mild pe ricardial effusion. There is mild right and minimal left pleural effusions. There is mild bibasilar atelectasis. Multiple small calcified granulomas within the lung bases with the largest on the right side measuring 5 x 5 mm. There is a small bleb within the right middle lobe measuring 8 x 10 mm. Th ere is a small bleb within the left lung base measuring 15 x 11 mm. The liver has a normal size and contour without focal areas of abnormal density. No intrahepatic nor extrahepatic biliary ductal dil atation is seen. Search bladder fossa from the patient's recent cholecystectomy. There is minimal mahan rrounding residual infiltration. The pancreas is without areas of abnormal attenuation. The spleen is visualized consistent with prior splenectomy. The adrenal glands are unremarkable. The kidneys ar e but bilaterally with vascular calcifications. There is no evidence for obstructive uropathy. Small renal cysts are again noted. The urinary bladder is decompressed. There is no evidence for bow el obstruction. There is a linear appendicolith within the appendix measuring approximately 5 x 10 x 5 mm without wall thickening or periappendiceal inflammatory changes. The uterus is anteflexed. Th ere is no significant pelvic free fluid. Phleboliths are seen within the pelvis. There is mild diffu se infiltration of the soft tissues consistent with anasarca. The aortoiliac vessels are without ane urysmal dilatation. There is a sclerotic appearance to the osseous structures consistent with renal osteodystrophy. IMPRESSION: 1. Cardiomegaly with AICD device. 2. Mild residual pericardial effusion which has decreased in the interval. 3. Mild right and minimal left pleural effusions with a decreased in the interval with mild residua l bibasilar atelectasis. 4. Status post cholecystectomy with minimal residual surrounding infiltration. 5. Status post splenectomy. 6. Bilaterally atrophic kidneys. 7. Proximal appendicolith without CT evidence for appendicitis. 8. Anasarca. 9. Renal osteodystrophy. .Chace Jacobo MD, MD Date Time Electronically viewed and signed by .Chace Jacobo MD, MD on 06/01/2017 02:13 .Pastor/
--- NOTE | 2017-06-01 02:56 | ERA ---
ER Documentation Chief Complaint Date/Time DATE: 06/01/17 TIME: 02:53 Chief Complaint left sided abd pain HPI This is a 47-year-old female comes in with left-sided abdominal pain off and on congested 3 days. No nausea no vomiting no chills. Pain is mild to moderate complaints. In intensity. No other current complaints. ROS All systems reviewed and are negative except as per history of present illness. Medications Home Meds Active Scripts Bisacodyl* (Bisacodyl*) 5 Mg Tablet.dr, 5 MG PO DAILY Y for CONSTIPATION for 14 Days Prov:REMI SIMPSON MD 05/27/17 Bacitracin-Polymyxin* (Polysporin* Topical) 28.35 Gm Oint, 1 APPLIC TOP BID for 7 Days Prov:REMI SIMPSON MD 05/27/17 Hydrocodone Bit-Acetaminophen (Hydrocodone Bit-APAP) 5-325MG Tablet, 1 TAB PO Q6H Y for MODERATE PAIN LEVEL 4-6 for 14 Days, TAB Prov:REMI SIMPSON MD 05/27/17 Hydralazine Hcl* (Apresoline*) 50 Mg Tab, 100 MG PO Q8 for 28 Days, TAB Prov:REMI SIMPSON MD 05/27/17 [Ipratropium 0.02% (Neb)] 0.5 MG/2.5 ML NEBU No Conflict Check, 0.5 MG HHN Q6H RESP THERAPY for 10 Days Prov:REMI SIMPSON MD 05/27/17 Albuterol Sulfate* (Albuterol Sulfate* Neb) 0.083%-3 Ml Neb, 2.5 MG HHN Q6H RESP THERAPY for 10 Days Prov:REMI SIMPSON MD 05/27/17 Doxycycline* (Vibramycin*) 100 Mg Tab, 100 MG PO BID for 7 Days, TAB Prov:REMI SIMPSON MD 05/27/17 Atorvastatin Calcium* (Atorvastatin Calcium*) 20 Mg Tablet, 20 MG PO QHS for hyper for 30 Days, #30 TAB Prov:TONY SANDOVAL 03/13/17 Nitroglycerin* (Nitrostat*) 0.4 Mg Tab.subl, 1 TAB SL .Q5M UP TO 3 DOSES Y for CHEST PAIN for 30 Days, #60 Prov:TONY SANDOVAL 03/13/17 Losartan Potassium* (Cozaar*) 50 Mg Tablet, 50 MG PO BID for 30 Days, #60 TAB Prov:TONY SANDOVAL 03/13/17 Aspirin (Aspirin) 81 Mg Chew, 81 MG PO DAILY for 30 Days, TAB Prov:TONY SANDOVAL 03/13/17 Carvedilol* (Coreg*) 25 Mg Tab, 25 MG PO BID for 30 Days, TAB Prov:REMI SIMPSON MD 12/26/15 Reported Medications Sevelamer Carbonate* (Renvela*) 800 Mg Tablet, 0.8 GM PO WITH MEALS, TAB 2 TABS TID WITH MEALS 10/07/16 Amlodipine Besylate* (Norvasc*) 5 Mg Tablet, 5 MG PO BID, TAB 10/06/16 Cinacalcet* (Sensipar*) 60 Mg Tablet, 60 MG PO DAILY, TAB 10/06/16 Diphenhydramine Hcl* (Benadryl*) 50 Mg Cap, 50 MG PO Q12 Y for ITCHING, CAP 10/06/16 Docusate Sodium* (Doc-Q-Lace*) 100 Mg Capsule, 100 MG PO BID Y for CONSTIPATION , CAP 10/06/16 Folic Acid* (Folic Acid*) 1 Mg Tablet, 1 MG PO DAILY, TAB 10/06/16 Pantoprazole* (Pantoprazole*) 40 Mg Tablet.dr, 40 MG PO DAILY, TAB 12/22/15 Lanthanum Carbonate* (Fosrenol*) 500 Mg Tab.chew, 500 MG PO TID, TAB.CHEW WITH MEALS 01/11/15 Discontinued Reported Medications Hydralazine Hcl* (Apresoline*) 50 Mg Tab, 50 MG PO DAILY, #30 TAB 10/06/16 Allergies Allergies: Coded Allergies: valacyclovir (Verified Allergy, Mild, 05/05/17) per pt she has nightmares and hallucinations PMhx/Soc History of Surgery: Yes (cholecystectomy, pacemaker) Anesthesia Reaction: No Hx Neurological Disorder: No Hx Respiratory Disorders: No Hx Cardiac Disorders: Yes (HTN, lupus) Hx Psychiatric Problems: No Hx Miscellaneous Medical Probl: Yes (ESRD HD, ) Hx Alcohol Use: No Hx Substance Use: No Hx Tobacco Use: Yes Smoking Status: Current every day smoker Physical Exam Vitals Vital Signs Date Time Temp Pulse Resp B/P Pulse Ox O2 Delivery O2 Flow Rate FiO2 05/31/17 20:09 97.5 96 20 162/85 98 Physical Exam Const: [] Head: Atraumatic Eyes: Normal Conjunctiva ENT: Normal External Ears, Nose and Mouth. Neck: Full range of motion..~ No meningismus. Resp: Clear to auscultation bilaterally Cardio: Regular rate and rhythm, no murmurs Abd: Soft, non tender, non distended. Normal bowel sounds Skin: No petechiae or rashes Back: No midline or flank tenderness Ext: No cyanosis, or edema Neur: Awake and alert Psych: Normal Mood and Affect Result Diagram: 05/31/17 2353 05/31/17 2353 Results 24 hrs Laboratory Tests Test 05/31/17 23:53 White Blood Count 7.910^3/ul Red Blood Count 2.3310^6/ul Hemoglobin 7.4g/dl Hematocrit 23.9% Mean Corpuscular Volume 102.6fl Mean Corpuscular Hemoglobin 31.8pg Mean Corpuscular Hemoglobin Concent 31.0g/dl Red Cell Distribution Width 17.1% Platelet Count 27122^3/UL Mean Platelet Volume 10.7fl Neutrophils % 61.9% Lymphocytes % 19.8% Monocytes % 10.1% Eosinophils % 5.9% Basophils % 0.5% Nucleated Red Blood Cells % 1.3/100WBC Neutrophils # 4.910^3/ul Lymphocytes # 1.610^3/ul Monocytes # 0.810^3/ul Eosinophils # 0.510^3/ul Basophils # 0.010^3/ul Nucleated Red Blood Cells # 0.110^3/ul Sodium Level 137mmol/L Potassium Level 4.6mmol/L Chloride Level 99mmol/L Carbon Dioxide Level 29mmol/L Anion Gap 14 Blood Urea Nitrogen 54mg/dl Creatinine 6.95mg/dl Glucose Level 96mg/dl Calcium Level 9.0mg/dl Total Bilirubin 0.0mg/dl Direct Bilirubin 0.00mg/dl Indirect Bilirubin 0.0mg/dl Aspartate Amino Transf (AST/SGOT) 42IU/L Alanine Aminotransferase (ALT/SGPT) 24IU/L Alkaline Phosphatase 828IU/L Troponin I 0.139ng/ml Total Protein 7.6g/dl Albumin 3.2g/dl Globulin 4.40g/dl Albumin/Globulin Ratio 0.72 Lipase 204U/L Current Medications Medications (Trade) Dose Ordered Sig/Halie Route PRN Reason Start Time Stop Time Status Last Admin Dose Admin Morphine Sulfate (morphine) 4 mg ONCE STAT IV 05/31/17 23:35 05/31/17 23:36 DC 05/31/17 23:52 Ondansetron HCl (Zofran Inj) 4 mg ONCE STAT IV 05/31/17 23:35 05/31/17 23:36 DC 05/31/17 23:52 Procedures/MDM EKG: Rate/Rhythm: [Normal Sinus Rhythm] QRS, ST, T-waves: [No changes consistent w/ acute ischemia] Impression: [No evidence of ischemia or arrhythmia] Chest X-ray 1V Interpreted by me: Soft Tissue: No acute abnormalities Bones: No acute abnormalities Mediastinum/Cardiac Silhouette/Lungs: [No acute abnormalities] Medical decision-making: Patient does have elevated troponin but is trending down from the laceration a few days ago. She is found to be anemic again. Patient will need to be admitted for further evaluation and management. I spoke with Dr. Simpson who gone except the patient is service. Departure Diagnosis: Primary Impression: Abdominal pain Qualified Code: R10.84 - Generalized abdominal pain Additional Impression: Anemia Qualified Code: D64.9 - Anemia, unspecified type Condition: Serious YULI FONSECA Jun 01, 2017 02:56
[2017-06-01] MEDS ORDERED: morphine 4 MG/ML VIAL IV STA (04:03)
[2017-06-01] MEDS ORDERED: DOCUSATE SODIUM 100 MG CAP PO PRN (06:30)
[2017-06-01] MEDS ORDERED: ALBUTEROL/IPRATROPIUM (NEB) 3 ML AMP HHN PRN ×2 (06:30→08:00)
[2017-06-01] MEDS ORDERED: BISACODYL (EC) 5 MG TAB PO PRN (07:00)
[2017-06-01] MEDS ORDERED: NITROGLYCERIN (SL) 0.4 MG TAB SL PRN (07:00)
[2017-06-01] MEDS ORDERED: DIPHENHYDRAMINE 50 MG CAP PO PRN (07:00)
[2017-06-01] MEDS ORDERED: HYDROCODONE/APAP (5/325) TAB PO PRN (07:00)
[2017-06-01] MEDS ORDERED: HYDROmorphONE 1 MG/ML SYG ONE (07:16)
[2017-06-01] MEDS: HYDROmorphONE 1 MG/ML SYG IV PRN ×4 (07:21→21:27)
[2017-06-01] MEDS: LOSARTAN 50 MG TAB PO SCH ×2 (09:00→21:14)
[2017-06-01] MEDS: AMLODIPINE 5 MG TAB PO SCH ×2 (09:00→21:13)
[2017-06-01] MEDS: CINACALCET 30 MG TAB PO SCH (09:37)
[2017-06-01] MEDS: SEVELAMER CARBONATE 0.8 GM PKT PO SCH ×3 (09:37→17:07)
[2017-06-01] MEDS: LANTHANUM 500 MG CHEW PO SCH ×3 (09:38→23:57)
[2017-06-01] MEDS: FOLIC ACID 1 MG TAB PO SCH (09:38)
[2017-06-01] MEDS: PANTOPRAZOLE (EC) 40 MG TAB PO SCH (09:38)
[2017-06-01] MEDS: ASPIRIN 81 MG TAB PO SCH (09:38)
[2017-06-01] MEDS ORDERED: DIPHENHYDRAMINE 50 MG INJ IV SCH (10:30)
[2017-06-01] MEDS: ONDANSETRON 4 MG INJ IV PRN (11:10)
--- NOTE | 2017-06-01 17:34 | HP ---
DATE OF ADMISSION: 06/01/2017 REASON FOR ADMISSION: Left lower quadrant pain and weakness. HISTORY OF PRESENT ILLNESS: A 47-year-old woman who has a past medical history of end-stage renal disease, on hemodialysis Wednesday, Wednesday, Wednesday, hypertension, cardiomyopathy, history of hyperparathyroidism, CHF, lupus who was recently admitted in the hospital and had a complicated course. Admission from to 05/06/2017 and was discharged on 05/27/2017. The patient had a cholecystitis and was status post lap cholecystectomy. Had some fluid collection. The patient also had pneumonia and elevated troponin, donato glabrata in the urine. The patient had really complicated course. Per patient she had been feeling weak, tired since the discharge from the hospital. The patient went for her regular dialysis session yesterday, however, was late for her appointment and could only get 2 hours of dialysis. While she was sleeping last night she slept on her left side and she started having pain in her left upper quadrant and after that she started feeling weak, tired, and noted to have some weakness and could not stand it and came to the emergency department. Patient denied any nausea, vomiting, any hematemesis, any melena, and any bright blood per rectum. On arrival to the ED, vital signs were blood pressure 153/86, heart rate 83, respirations 20, the patient was afebrile and the patient had a CT of the abdomen and pelvis that showed cardiomegaly with an AICD device. Mild residual pericardial effusion which has decreased in the interval. Mild right minimal left pleural effusion, status post cholecystectomy with minimal residual surrounding infiltration, status post splenectomy, bilateral atrophic kidneys, proximal without CT evidence of appendicitis and anasarca renal osteodystrophy. However, patient was found to be extremely anemic with a hemoglobin 7.4 from 8.0 on last discharge and was admitted for blood transfusion and dialysis. The patient currently denies any abdominal pain. No nausea, no vomiting. PAST MEDICAL HISTORY: 1. Positive troponin in the setting of renal failure. 2. History of nonischemic cardiomyopathy, with catheterization in December 2015. Lexiscan negative, cardiomyopathy with EF of 40 percent. 3. Hypertension. 4. Dyslipidemia. 5. Acute cholecystitis. 6. End-stage renal disease, on hemodialysis. 7. Anemia. 8. CHF, systolic, acute on chronic. ALLERGIES: VALACYCLOVIR. MEDICATIONS: Bacitracin, Vicodin, hydralazine, albuterol, doxycycline, atorvastatin, nitroglycerin, losartan 50 twice a day, aspirin, Coreg, Renvela 800 3 times a day with meals, Norvasc 5, Senna 60, diphenhydramine, Colace, pantoprazole, and [place] carbonate. PAST SURGICAL HISTORY: Appendectomy, cholecystectomy, and pacemaker. SOCIAL HISTORY: Denies any history of smoking, alcohol, or drug use. Goes to Center in [place]. FAMILY HISTORY: Noncontributory. REVIEW OF SYSTEMS: The patient denied any chest pain any shortness of breath. The patient had right lower extremity swelling, which is gone. The patient also had left upper quadrant pain which is improving. No nausea, no vomiting and generalized weakness. No hematemesis, no melena. No bright red blood per rectum. No headache. No blurry vision. No focal neurological deficits. PHYSICAL EXAMINATION: GENERAL: The patient is awake, alert, oriented times 4. Does not appear to be in acute distress. HEENT: Pupils equal, round, react to light. NECK: Supple. No JVD. HEART: Regular rate and rhythm. ABDOMEN: Soft, some tenderness present in the left upper quadrant. EXTREMITIES: No clubbing, cyanosis, or edema. The patient has a left AV fistula. SKIN: Multiple surgical scars on the abdomen and on the arms. AICD placement. DIAGNOSTIC DATA: BMP within normal limit except BUN of 54, creatinine 6.049. Troponin 0.139, which is trending down. White count of 7.9, hemoglobin 7.4 from 8, MCV 102, and platelet count 433. ASSESSMENT: 1. This is a 47-year-old woman presenting with sudden onset of left upper quadrant pain, which appears to be positional in nature, status post lying on the left side. CT of the abdomen and pelvis is negative for any acute pathology. 2. Anemia macrocytic. We will check for vitamin B12, folate. 3. Hypertension. 4. Hypercholesteremia. 5. Positive troponin. However, the patient had extensive workup in the past, status post cardiac catheterization in December 2015 which was negative for obstructive chronic coronary artery disease. Patient has a recent Lexiscan test which was also negative by Dr. Spencer. 6. Cardiomyopathy with decreased ejection fraction 40 percent. 7. Dyslipidemia. 8. History of acute cholecystitis status post cholecystectomy. 9. End-stage renal disease, on hemodialysis. 10. Congestive heart failure, systolic, acute on chronic. PLAN: At this period of time, patient is admitted to [facility]. We will do a session on dialysis today. Patient will also lead to receive blood transfusion along with dialysis. We will give pain control for the left lateral quadrant pain. Patient will be started on diet. We will continue to trend troponins. We will also check for vitamin B12, folic acid. Rest of the treatment depends on the patient's hospitalization course. Dictated By: MD ADRIANA Mercado/wenceslao/nasreen /Document#: [id number]
[2017-06-01] MEDS ORDERED: hydrALAzine 20 MG INJ IV PRN (18:00)
[2017-06-01] MEDS ORDERED: DIPHENHYDRAMINE 50 MG INJ IV ONE (18:00)
[2017-06-01] MEDS: ATORVASTATIN 20 MG TAB PO SCH (21:13)
[2017-06-02] VITALS (20 sets, daily range): BP systolic 125–191; BP diastolic 66–86; PULSE 76–91; RESP 18–20
[2017-06-02] MEDS: HYDROmorphONE 1 MG/ML SYG IV PRN ×4 (03:30→19:06)
[2017-06-02] MEDS: PANTOPRAZOLE (EC) 40 MG TAB PO SCH (05:57)
[2017-06-02] MEDS: LANTHANUM 500 MG CHEW PO SCH ×3 (08:12→20:44)
[2017-06-02] MEDS: CINACALCET 30 MG TAB PO SCH (08:12)
[2017-06-02] MEDS: FOLIC ACID 1 MG TAB PO SCH (08:13)
[2017-06-02] MEDS: ASPIRIN 81 MG TAB PO SCH (08:13)
[2017-06-02] MEDS: AMLODIPINE 5 MG TAB PO SCH ×2 (08:13→20:44)
[2017-06-02] MEDS: LOSARTAN 50 MG TAB PO SCH ×2 (08:13→20:45)
[2017-06-02] MEDS: SEVELAMER CARBONATE 0.8 GM PKT PO SCH ×3 (08:13→17:55)
[2017-06-02 08:18] LABS: BASOPHILS % 0.7 % (0.0-2.0); EOSINOPHILS # 0.4 10^3/ul (0.0-0.5); EOSINOPHILS % 6.2 % (0.0-7.0); HEMATOCRIT 25.8 % (37.0-47.0); HEMOGLOBIN 7.9 g/dl (12.0-16.0); LYMPHOCYTES # 1.3 10^3/ul (0.8-2.9); LYMPHOCYTES % 20.5 % (15.0-51.0); MEAN CORPUSCULAR HEMOGLOBIN 30.3 pg (29.0-33.0); MEAN CORPUSCULAR HGB CONC 30.6 g/dl (32.0-37.0); MEAN CORPUSCULAR VOLUME 98.9 fl (82.0-101.0); MEAN PLATELET VOLUME 10.6 fl (7.4-10.4); MONOCYTE # 0.7 10^3/ul (0.3-0.9); MONOCYTES % 11.1 % (0.0-11.0); NEUTROPHIL # 3.7 10^3/ul (1.6-7.5); NEUTROPHILS % 60.2 % (39.0-77.0); NUCLEATED RED BLOOD CELLS # 0.1 10^3/ul (0.0-0.0); NUCLEATED RED BLOOD CELLS% 1.8 /100WBC (0.0-0.0); PLATELET COUNT 398 10^3/UL (140-415); RED BLOOD COUNT 2.61 10^6/ul (4.20-5.40); RED CELL DISTRIBUTION WIDTH 19.5 % (11.5-14.5); WHITE BLOOD COUNT 6.1 10^3/ul (4.8-10.8)
[2017-06-02 08:49] LABS: MAGNESIUM 1.7 mg/dl (1.7-2.5); PHOSPHORUS 5.8 mg/dl (2.5-4.9)
[2017-06-02] MEDS: ONDANSETRON 4 MG INJ IV PRN (10:28)
[2017-06-02 12:05] LABS: HEMATOCRIT 27.4 % (37.0-47.0); HEMOGLOBIN 8.5 g/dl (12.0-16.0)
--- NOTE | 2017-06-02 14:56 | PN ---
Date/Time of Note Date/Time of Note DATE: 06/02/17 TIME: 14:53 Assessment/Plan VTE Prophylaxis VTE Prophylaxis Intervention: ambulation Lines/Catheters IV Catheter Type (from [facility]): [place] Urinary Cath still in place: No Assessment/Plan Chief Complaint/Hosp Course 1 47-year-old woman presenting with sudden onset of left upper quadrant pain, which appears to be positional in nature, status post lying on the left side. CT of the abdomen and pelvis is negative for any acute pathology. 2. Anemia macrocytic. Vit b 12 and folate normal 3. Hypertension. 4. Hypercholesteremia. 5. Positive troponin. However, the patient had extensive workup in the past, status post cardiac catheterization in December 2015 which was negative for obstructive chronic coronary artery disease. Patient has a recent Lexiscan test which was also negative by Dr. Spencer. 6. Cardiomyopathy with decreased ejection fraction 40 percent. 7. Dyslipidemia. 8. History of acute cholecystitis status post cholecystectomy. 9. End-stage renal disease, on hemodialysis. 10. Congestive heart failure, systolic, acute on chronic. PLAN: - s/p 1 unit PRBC - Repeat H/H 7.9 > 8.5 today - Will give Epogen - d/c home today after HD Problems: Subjective 24 Hr Interval Summary Free Text/Dictation Feels better today Denies any GI bleeding Exam/Review of Systems Vital Signs Vitals Vital Signs Date Time Temp Pulse Resp B/P Pulse Ox O2 Delivery O2 Flow Rate FiO2 06/02/17 12:46 83 06/02/17 11:48 99.2 20 157/72 96 06/01/17 17:37 21 06/01/17 05:00 Room Air Intake and Output 06/01/17 06/01/17 06/02/17 15:00 23:00 07:00 Intake Total 600 ml 700 ml Output Total 3600 ml Balance -3000 ml 700 ml Exam Gen: awake,alert Neck:supple CVS: Regular rate and rthym Abdomen:soft, non tender Ext : no edema Results Result Diagram: 06/02/17 1115 05/31/17 4493 Results 24 hrs Laboratory Tests Test 06/02/17 06:07 06/02/17 07:12 06/02/17 11:15 Lab Scanned Report BLOOD TRANSFUSION White Blood Count 6.1 # Red Blood Count 2.61 L Hemoglobin 7.9 L 8.5 L Hematocrit 25.8 L 27.4 L Mean Corpuscular Volume 98.9 Mean Corpuscular Hemoglobin 30.3 Mean Corpuscular Hemoglobin Concent 30.6 L Red Cell Distribution Width 19.5 H Platelet Count 398 Mean Platelet Volume 10.6 H Neutrophils % 60.2 Lymphocytes % 20.5 Monocytes % 11.1 H Eosinophils % 6.2 Basophils % 0.7 Nucleated Red Blood Cells % 1.8 H Neutrophils # 3.7 Lymphocytes # 1.3 Monocytes # 0.7 Eosinophils # 0.4 Basophils # 0.0 Nucleated Red Blood Cells # 0.1 H Phosphorus Level 5.8 H Magnesium Level 1.7 Hepatitis B Surface Antigen NEGATIVE Hepatitis C Antibody NEGATIVE Medications Medications Current Medications Amlodipine Besylate (Norvasc) 5 mg BID PO Last administered on 06/02/17 08:13 ; Admin Dose 5 MG; Start 06/01/17 at 09:00 Aspirin (Aspirin) 81 mg DAILY PO Last administered on 06/02/17 08:13; Admin Dose 81 MG; Start 06/01/17 at 09:00 Atorvastatin Calcium (Lipitor) 20 mg QHS PO Last administered on 06/01/17 21: 13; Admin Dose 20 MG; Start 06/01/17 at 21:00 Bisacodyl (Dulcolax) 5 mg DAILY PRN PO CONSTIPATION; Start 06/01/17 at 07:00 Carvedilol (Coreg) 25 mg BID PO Last administered on 06/02/17 08:13; Admin Dose 25 MG; Start 06/01/17 at 09:00 Cinacalcet (Sensipar) 60 mg DAILY PO Last administered on 06/02/17 08:12; Admin Dose 60 MG; Start 06/01/17 at 09:00 Diphenhydramine HCl (Benadryl) 50 mg Q12H PRN PO ITCHING; Start 06/01/17 at 07: 00 Docusate Sodium (Colace) 100 mg BID PRN PO CONSTIPATION; Start 06/01/17 at 06: 30 Folic Acid (Folic Acid) 1 mg DAILY PO Last administered on 06/02/17 08:13; Admin Dose 1 MG; Start 06/01/17 at 09:00 Hydralazine HCl (Apresoline) 100 mg Q8 PO Last administered on 06/02/17 05:57 ; Admin Dose 100 MG; Start 06/01/17 at 07:00 Acetaminophen/ Hydrocodone Bitart ([place] (5/325)) 1 tab Q6H PRN PO MODERATE PAIN LEVEL 4-6 Last administered on 06/02/17 06:03; Admin Dose 1 TAB; Start at 07:00 Lanthanum Carbonate (Fosrenol) 500 mg TID PO Last administered on 06/02/17 12: 38; Admin Dose 500 MG; Start 06/01/17 at 09:00 Losartan Potassium (Cozaar) 50 mg BID PO Last administered on 06/02/17 08:13; Admin Dose 50 MG; Start 06/01/17 at 09:00 Pantoprazole (Protonix Tab) 40 mg DAILY@06 PO Last administered on 06/02/17 05 :57; Admin Dose 40 MG; Start 06/01/17 at 07:00 Hydromorphone HCl (Dilaudid) 0.5 mg Q4H PRN IV PAIN Last administered on 14:37; Admin Dose 0.5 MG; Start 06/01/17 at 07:00 Ondansetron HCl (Zofran Inj) 4 mg Q4H PRN IV NAUSEA AND/OR VOMITING Last administered on 06/02/17 10:28; Admin Dose 4 MG; Start 06/01/17 at 11:00 Hydralazine HCl (Apresoline) 10 mg Q6 PRN IV SBP > 170; Start 06/01/17 at 18:00 Epoetin Paul (Epogen (Esrd)) 2,000 units MoWeFr@17 SC ; Start 06/02/17 at 17:00 Epoetin Paul (Epogen (Esrd)) 3,000 units MoWeFr@17 SC ; Start 06/02/17 at 17:00 KHANG WATSON MD Jun 02, 2017 14:56
--- NOTE | 2017-06-02 14:57 | PDOCDIS ---
Discharge Instructions DIAGNOSIS Discharge Diagnosis LLq pain positional Anemia s/p 1 unit PRBC CONDITION Patient Condition: Good HOME CARE INSTRUCTIONS: Special Diet: RENAL, CARDIAC ACTIVITY: Activity Restrictions: Slowly Increase Activity FOLLOW UP/APPOINTMENTS Follow-up Plan F/U PCP in 2 weeks f/u HD on M// KHANG WATSON MD Jun 02, 2017 14:57
[2017-06-02] MEDS ORDERED: DIPHENHYDRAMINE 50 MG INJ IV ONE (16:30)
[2017-06-02] MEDS ORDERED: EPOETIN 3000 UNITS/1 ML INJ (ESRD) SC SCH (17:00)
[2017-06-02] MEDS ORDERED: EPOETIN 10000 UNITS/1 ML INJ (ESRD) SC SCH (17:00)
[2017-06-02] MEDS ORDERED: EPOETIN 2000 UNITS/1 ML INJ (ESRD) SC SCH (17:00)
[2017-06-02] MEDS: ATORVASTATIN 20 MG TAB PO SCH (20:45)
[2017-06-03] VITALS (7 sets, daily range): BP systolic 148–165; BP diastolic 74–82; PULSE 71–85; RESP 18–20
--- NOTE | 2017-06-03 01:51 | DS ---
DATE OF ADMISSION: 06/01/2017 DATE OF DISCHARGE: 06/02/2017 FINAL DIAGNOSES: 1. Lower left lower quadrant pain likely positional in nature. CT of the abdomen and pelvis negative for any acute pathology. 2. Anemia macrocytic. B12 and folate within normal limits status post 1 unit of blood. 3. Hypertension. 4. Hypercholesteremia. 5. Positive troponin; however, the patient had extensive workup in the past, status post cardiac catheterization in 12/2015 which was negative for obstructive coronary artery disease, has recent Lexiscan which was also negative by Dr. Spencer. 6. Cardiomyopathy with decreased ejection fraction of 40 percent. 7. Dyslipidemia. 8. History of cholecystitis status post laparoscopic cholecystectomy. 9. End-stage renal disease on hemodialysis. 10. History of congestive heart failure. HOSPITAL COURSE: This is a 47-year-old woman who has past history of end-stage renal disease on hemodialysis, hypertension, cardiomyopathy, CHF and lupus, who recently was admitted to the hospital. She had a complicated course and was admitted on 05/06/2017 until 05/27/2017. She had a laparoscopic cholecystectomy. The patient also had pneumonia and elevated troponin, and Z[place] glabrata in the urine. The patient was discharged on 05/27/2017; however, since her discharge the patient has been feeling weak and tired. The patient went for a regular dialysis session; however, was late for the appointment and only could get 2 hours of dialysis. While she was sleeping last night, she slept on her left side and had some left upper quadrant pain and had some weakness and could not stand and came to the emergency department. On arrival to the ED the vital signs were blood pressure of 153/86, heart rate of 83, respirations 20. The patient's hemoglobin was 7.4 from 05/22/2017. The patient had a CT of the abdomen and pelvis which showed cardiomegaly with AICD, mild residual pericardial effusion, mild right and left pleural effusion, status post cholecystectomy, post splenectomy, bilateral atrophic kidneys, anasarca, renal osteodystrophy. The patient had received 1 unit of blood along with hemodialysis. HD removed 3 L on 06/01/2017. The next day the patient did not have any signs of any GI bleed. Vitamin B12 and folic acid were checked within normal limits. Next day hemoglobin was checked was 7.9; however, the repeat one without any intervention was 8.5. The patient is going to receive her regular session of dialysis on Wednesday and will be discharged after. The patient also received 5000 units of Epogen here. DISCHARGE MEDICATIONS: Continue with all home medications which are: Albuterol q.6 hours. Amlodipine 5 b.i.d. Aspirin 81. [____] 20. Bisacodyl. Coreg 25 b.i.d. Sensipar 60. Diphenhydramine p.r.n. itching. Colace. Doxycycline 700 b.i.d. Folic acid, Hydralazine 100 q.8. Vicodin. Lanthanum carbonate 500 t.i.d. Losartan 50 b.i.d. Pantoprazole 40. [____] 0.8 g with meals. Dictated By: MD ADRIANA Mercado/wenceslao/bacilio /Document#: [id number]
[2017-06-03] MEDS: HYDROmorphONE 1 MG/ML SYG IV PRN (05:30)
[2017-06-03] MEDS: PANTOPRAZOLE (EC) 40 MG TAB PO SCH (05:32)
[2017-06-03] MEDS: SEVELAMER CARBONATE 0.8 GM PKT PO SCH (08:03)
[2017-06-03] MEDS: CINACALCET 30 MG TAB PO SCH (08:04)
[2017-06-03] MEDS: AMLODIPINE 5 MG TAB PO SCH (08:04)
[2017-06-03] MEDS: LANTHANUM 500 MG CHEW PO SCH (08:04)
[2017-06-03] MEDS: FOLIC ACID 1 MG TAB PO SCH (08:04)
[2017-06-03] MEDS: LOSARTAN 50 MG TAB PO SCH (08:04)
[2017-06-03] MEDS: ASPIRIN 81 MG TAB PO SCH (08:05)
== END 2017-06-03 09:20 | disposition home or self-care (01) | DRG 391 ==
LOC: E/R 20:04 → TEL 06-01 02:31
PROVIDERS: ADMIT Internal Medicine Nephrology; ATTEND Internal Medicine Nephrology
PROC: 5A1D60Z (ICD-10-PCS; principal; 2017-06-01)
PROC: 30233N1 Transfusion of Nonautologous Red Blood Cells into Peripheral Vein, Percutaneous Approach (ICD-10-PCS; 2017-06-01)
DX: R10.32 Left lower quadrant pain (principal); N18.6 End stage renal disease; I50.23 Acute on chronic systolic (congestive) heart failure; M32.9 Systemic lupus erythematosus, unspecified; I42.9 Cardiomyopathy, unspecified; N25.81 Secondary hyperparathyroidism of renal origin; I13.2 Hypertensive heart and chronic kidney disease with heart failure and with stage 5 chronic kidney disease, or end stage renal disease; D63.1 Anemia in chronic kidney disease; F17.210 Nicotine dependence, cigarettes, uncomplicated; R10.84 Generalized abdominal pain; Z99.2 Dependence on renal dialysis; Z90.49 Acquired absence of other specified parts of digestive tract
CPT/HCPCS: 36415; 36430; 71010; 74176; 80053; 82607; 82746; 83690; 83735; 84100; 84484; 85014; 85018; 85025; 86803; 86850; 86870; 86900; 86901; 86920; 87081; 87340; 90935; 93005; 94640; 94664; 96374; 96375; 96376; J0886; J1170; J1200; J2270; J2405; P9016

== ENCOUNTER 2017-06-06 21:21 | Emergency (ER) | payer MEDICARE, OTHER ==
[~2017-06-06] VITALS: Ht 160 cm; Wt 63.0 kg
[~2017-06-06 21:21] MED LIST changes: -BACI28.35 TOP
[2017-06-06 21:27] VITALS: Ht 160 cm; Wt 63.0 kg
[2017-06-06] MEDS ORDERED: morphine 4 MG/ML VIAL IV STA (23:30)
[2017-06-06] MEDS ORDERED: ONDANSETRON 4 MG INJ IV STA (23:30)
--- NOTE | 2017-06-06 23:53 | ERD ---
ER Documentation Chief Complaint Date/Time DATE: 06/06/17 TIME: 23:48 Chief Complaint left abdominal/back pain x 2 days HPI 47-year-old female presents the emergency department for complaints of left lower quadrant abdominal pain. Patient was seen recently at this emergency department and admitted for anemia. Patient with a history of chronic kidney disease requiring dialysis as well as chronic anemia. She denies fever, chills , nausea, vomiting, diarrhea, or back pain. She is requesting an x-ray to be performed in the ER today. ROS All systems reviewed and are negative except as per history of present illness. Medications Home Meds Active Scripts Docusate Sodium* (Colace*) 100 Mg Capsule, 100 MG PO BID, #60 CAP Prov:SHAAN ROOT PA-C 06/07/17 Hydrocodone/Acetaminophen ([place] 5-325 Tablet) 1 Each Tablet, 1 EACH PO Q6, #20 TAB Prov:SHAAN ROOT PA-C 06/07/17 Bisacodyl* (Bisacodyl*) 5 Mg Tablet.dr, 5 MG PO DAILY Y for CONSTIPATION for 14 Days Prov:REMI SIMPSON MD 05/27/17 Hydrocodone Bit-Acetaminophen (Hydrocodone Bit-APAP) 5-325MG Tablet, 1 TAB PO Q6H Y for MODERATE PAIN LEVEL 4-6 for 14 Days, TAB Prov:REMI SIMPSON MD 05/27/17 Hydralazine Hcl* (Apresoline*) 50 Mg Tab, 100 MG PO Q8 for 28 Days, TAB Prov:REMI SIMPSON MD 05/27/17 [Ipratropium 0.02% (Neb)] 0.5 MG/2.5 ML NEBU No Conflict Check, 0.5 MG HHN Q6H RESP THERAPY for 10 Days Prov:REMI SIMPSON MD 05/27/17 Albuterol Sulfate* (Albuterol Sulfate* Neb) 0.083%-3 Ml Neb, 2.5 MG HHN Q6H RESP THERAPY for 10 Days Prov:REMI SIMPSON MD 05/27/17 Doxycycline* (Vibramycin*) 100 Mg Tab, 100 MG PO BID for 7 Days, TAB Prov:REMI SIMPSON MD 05/27/17 Atorvastatin Calcium* (Atorvastatin Calcium*) 20 Mg Tablet, 20 MG PO QHS for hyper for 30 Days, #30 TAB Prov:APOORVA SANDOVALA 03/13/17 Nitroglycerin* (Nitrostat*) 0.4 Mg Tab.subl, 1 TAB SL .Q5M UP TO 3 DOSES Y for CHEST PAIN for 30 Days, #60 Prov:TONY SANDOVAL 03/13/17 Losartan Potassium* (Cozaar*) 50 Mg Tablet, 50 MG PO BID for 30 Days, #60 TAB Prov:VICKIBHARATTONY Gonzalez 03/13/17 Aspirin (Aspirin) 81 Mg Chew, 81 MG PO DAILY for 30 Days, TAB Prov:VICKIBHARATTONY Gonzalez 03/13/17 Carvedilol* (Coreg*) 25 Mg Tab, 25 MG PO BID for 30 Days, TAB Prov:REMI SIMPSON MD 12/26/15 Reported Medications Sevelamer Carbonate* (Renvela*) 800 Mg Tablet, 0.8 GM PO WITH MEALS, TAB 2 TABS TID WITH MEALS 10/07/16 Amlodipine Besylate* (Norvasc*) 5 Mg Tablet, 5 MG PO BID, TAB 10/06/16 Cinacalcet* (Sensipar*) 60 Mg Tablet, 60 MG PO DAILY, TAB 10/06/16 Diphenhydramine Hcl* (Benadryl*) 50 Mg Cap, 50 MG PO Q12 Y for ITCHING, CAP 10/06/16 Docusate Sodium* (Doc-Q-Lace*) 100 Mg Capsule, 100 MG PO BID Y for CONSTIPATION , CAP 10/06/16 Folic Acid* (Folic Acid*) 1 Mg Tablet, 1 MG PO DAILY, TAB 10/06/16 Pantoprazole* (Pantoprazole*) 40 Mg Tablet.dr, 40 MG PO DAILY, TAB 12/22/15 Lanthanum Carbonate* (Fosrenol*) 500 Mg Tab.chew, 500 MG PO TID, TAB.CHEW WITH MEALS 01/11/15 Discontinued Scripts Bacitracin-Polymyxin* (Polysporin* Topical) 28.35 Gm Oint, 1 APPLIC TOP BID for 7 Days Prov:REMI SIMPSON MD 05/27/17 Allergies Allergies: Coded Allergies: valacyclovir (Verified Allergy, Mild, 06/06/17) per pt she has nightmares and hallucinations PMhx/Soc Medical and Surgical Hx: pt denies Medical Hx History of Surgery: Yes (CHOLECYSTECTOMY,SPLEENECTOMY,C SECTION,AV FISTULA) Anesthesia Reaction: No Hx Neurological Disorder: No Hx Respiratory Disorders: No Hx Cardiac Disorders: Yes (HTN,PACEMAKER) Hx Psychiatric Problems: No Hx Miscellaneous Medical Probl: Yes (ANEMIA,LUPUS) Hx Alcohol Use: No Hx Substance Use: No Hx Tobacco Use: No Smoking Status: Never smoker Physical Exam Vitals Vital Signs Date Time Temp Pulse Resp B/P Pulse Ox O2 Delivery O2 Flow Rate FiO2 06/07/17 02:25 98.3 79 20 177/88 97 06/06/17 21:27 98.5 82 20 183/94 97 Physical Exam Const: Well-developed, well-nourished, in no acute distress Head: Atraumatic Eyes: Normal Conjunctiva ENT: Normal External Ears, Nose and Mouth. Neck: Full range of motion..~ No meningismus. Resp: Clear to auscultation bilaterally Cardio: Regular rate and rhythm, no murmurs Abd: Soft, Mild tenderness at the left lower quadrant, no rebound tenderness , non distended. Normal bowel sounds Skin: No petechiae or rashes Back: No midline or flank tenderness Ext: No cyanosis, or edema Neur: Awake and alert Psych: Normal Mood and Affect Result Diagram: 06/06/17 2345 06/06/17 2345 Results 24 hrs Laboratory Tests Test 06/06/17 23:45 White Blood Count 8.510^3/ul Red Blood Count 2.7910^6/ul Hemoglobin 8.6g/dl Hematocrit 28.1% Mean Corpuscular Volume 100.7fl Mean Corpuscular Hemoglobin 30.8pg Mean Corpuscular Hemoglobin Concent 30.6g/dl Red Cell Distribution Width 19.8% Platelet Count 73827^3/UL Mean Platelet Volume 10.4fl Neutrophils % 64.4% Lymphocytes % 15.2% Monocytes % 8.6% Eosinophils % 10.8% Basophils % 0.6% Nucleated Red Blood Cells % 0.5/100WBC Neutrophils # 5.510^3/ul Lymphocytes # 1.310^3/ul Monocytes # 0.710^3/ul Eosinophils # 0.910^3/ul Basophils # 0.110^3/ul Nucleated Red Blood Cells # 0.010^3/ul Sodium Level 139mmol/L Potassium Level 5.0mmol/L Chloride Level 100mmol/L Carbon Dioxide Level 25mmol/L Anion Gap 19 Blood Urea Nitrogen 62mg/dl Creatinine 9.96mg/dl Glucose Level 90mg/dl Calcium Level 9.8mg/dl Total Bilirubin 0.0mg/dl Direct Bilirubin 0.00mg/dl Indirect Bilirubin 0.0mg/dl Aspartate Amino Transf (AST/SGOT) 27IU/L Alanine Aminotransferase (ALT/SGPT) 22IU/L Alkaline Phosphatase 590IU/L Troponin I 0.066ng/ml Total Protein 8.0g/dl Albumin 3.4g/dl Globulin 4.60g/dl Albumin/Globulin Ratio 0.73 Lipase 250U/L Current Medications Medications (Trade) Dose Ordered Sig/Halie Route PRN Reason Start Time Stop Time Status Last Admin Dose Admin Morphine Sulfate (morphine) 4 mg ONCE STAT IV 06/06/17 23:30 06/06/17 23:32 DC 06/06/17 23:51 Ondansetron HCl (Zofran Inj) 4 mg ONCE STAT IV 06/06/17 23:30 06/06/17 23:32 DC 06/06/17 23:50 Procedures/MDM PROCEDURE: XR Abdomen. CLINICAL INDICATION: Left lower quadrant pain TECHNIQUE: Supine AP views of the abdomen. COMPARISON: CT of the abdomen pelvis dated 06/01/2017. FINDINGS: There is a single dilated gas-filled small bowel within the right abdominopelvic region. Gas and stool are seen within nondilated large bowel. No abnormal calcifications are identified.The patient is status post cholecystectomy. IMPRESSION: 1. Single dilated gas-filled small bowel loop in the right abdominopelvic region, nonspecific. This could be further evaluated with CT if clinically warranted. 2. Status post cholecystectomy. RPTAT: HTAR .Rogelio Danielle MD, MD Date Time Electronically viewed and signed by .Rogelio Danielle MD, on 06/07/2017 01:33 .R/ CC: SHAAN ROOT PA-C This is a 47-year-old female who is well-known to this emergency department with a history of chronic kidney disease, requiring dialysis as well as chronic anemia. Patient returns to the emergency department for ongoing left lower quadrant discomfort. At her last visit a full workup was performed. CT of the abdomen and pelvis with evidence of anasarca, but no acute processes were visible. She was admitted for anemia on 06-01-17, And discharged 2 days later. Patient states that her pain is unchanged since last visit to this ER. She is requesting to have an x-ray of her abdomen performed today. While in the emergency department, patient received pain and nausea medication. CBC showed . Showed evidence of chronic anemia. Her levels are unchanged since discharge on 06/02/2017. Hemoglobin stable at 8.6, And no active bleeding. At this time no indication for admission. CMP Unchanged compared to results from 4 days ago. Lipase showed no evidence of acute pancreatitis. Troponin Negative. KUB unremarkable for significant acute process aside from a small gas-filled loop of bowel. CT was performed on and unremarkable for surgical process. Patient states pain is unchanged since that time. Repeat CT imaging not warranted at this time. Patient's abdominal pain likely due to Edema from chronic kidney disease with anasarca. Since pain is well controlled while in the emergency department. She is to follow-up with her physician this week. Patient's case was discussed with Dr. Seth Johnson who agreed with workup and plan for discharge. Based on patient's history of present illness and physical examination the decision was made to discharge. The patient was re-evaluated after ED treatment and stabilizing measures, and symptoms have improved. There is no evidence of life threatening injuries or illnesses at this time. On re-examination, patient resting in no distress, stable vital signs, reports feeling better and safe for discharge with outpatient follow up with PMD in 1-2 days. Patient given return precautions. Departure Diagnosis: Primary Impression: Abdominal pain Abdominal location: left lower quadrant Qualified Code: R10.32 - Left lower quadrant pain SHAAN ROOT PA-C Jun 06, 2017 23:53
[2017-06-06 23:58] LABS: BASOPHIL # 0.1 10^3/ul (0.0-0.1); BASOPHILS % 0.6 % (0.0-2.0); EOSINOPHILS # 0.9 10^3/ul (0.0-0.5); EOSINOPHILS % 10.8 % (0.0-7.0); HEMATOCRIT 28.1 % (37.0-47.0); HEMOGLOBIN 8.6 g/dl (12.0-16.0); LYMPHOCYTES # 1.3 10^3/ul (0.8-2.9); LYMPHOCYTES % 15.2 % (15.0-51.0); MEAN CORPUSCULAR HEMOGLOBIN 30.8 pg (29.0-33.0); MEAN CORPUSCULAR HGB CONC 30.6 g/dl (32.0-37.0); MEAN CORPUSCULAR VOLUME 100.7 fl (82.0-101.0); MEAN PLATELET VOLUME 10.4 fl (7.4-10.4); MONOCYTE # 0.7 10^3/ul (0.3-0.9); MONOCYTES % 8.6 % (0.0-11.0); NEUTROPHIL # 5.5 10^3/ul (1.6-7.5); NEUTROPHILS % 64.4 % (39.0-77.0); NUCLEATED RED BLOOD CELLS% 0.5 /100WBC (0.0-0.0); PLATELET COUNT 343 10^3/UL (140-415); RED BLOOD COUNT 2.79 10^6/ul (4.20-5.40); RED CELL DISTRIBUTION WIDTH 19.8 % (11.5-14.5); WHITE BLOOD COUNT 8.5 10^3/ul (4.8-10.8)
[2017-06-07 00:28] LABS: ALBUMIN 3.4 g/dl (3.3-4.9); ALBUMIN/GLOBULIN RATIO 0.73; CALCIUM 9.8 mg/dl (8.4-10.2); CREATININE 9.96 mg/dl (0.44-1.00)
--- NOTE | 2017-06-07 01:33 | RADRPT ---
PROCEDURE: XR Abdomen. CLINICAL INDICATION: Left lower quadrant pain TECHNIQUE: Supine AP views of the abdomen. COMPARISON: CT of the abdomen pelvis dated 06/01/2017. FINDINGS: There is a single dilated gas-filled small bowel within the right abdominopelvic region. Gas and sto ol are seen within nondilated large bowel. No abnormal calcifications are identified.The patient is status post cholecystectomy. IMPRESSION: 1. Single dilated gas-filled small bowel loop in the right abdominopelvic region, nonspecific. This could be further evaluated with CT if clinically warranted. 2. Status post cholecystectomy. RPTAT: HTAR .Rogelio Danielle MD, MD Date Time Electronically viewed and signed by .Rogelio Danielle MD, on 06/07/2017 01:33 .R/
[2017-06-07] MEDS ORDERED: HYDR-906 PO (01:47)
[2017-06-07] MEDS ORDERED: DOCU-144 PO (01:47)
[2017-06-07 02:25] VITALS: BP 177/88; PULSE 79; RESP 20; TEMP 98.3
== END 2017-06-07 02:25 | disposition home or self-care (01) ==
LOC: FTE 21:21
DX: R10.32 Left lower quadrant pain (principal); I10 Essential (primary) hypertension; Z95.0 Presence of cardiac pacemaker; Z79.82 Long term (current) use of aspirin
CPT/HCPCS: 36415; 74000; 80053; 83690; 84484; 85025; 96374; 96375; 99284; J2270; J2405

== ENCOUNTER 2017-06-14 11:06 | Emergency (ER) | payer MEDICARE, OTHER ==
[~2017-06-14] VITALS: Ht 152.4 cm; Wt 61.5 kg
[~2017-06-14 11:06] MED LIST changes: +DOCU-144 PO; +HYDR-906 PO
[2017-06-14 11:13] VITALS: Ht 152.4 cm; Wt 61.5 kg
[2017-06-14] MEDS ORDERED: ONDANSETRON (ODT) 4 MG TAB ODT STA (12:14)
[2017-06-14] MEDS ORDERED: HYDROCODONE/APAP (10/325) TAB PO ONE (12:30)
[2017-06-14 12:52] LABS: BASOPHIL # 0.1 10^3/ul (0.0-0.1); BASOPHILS % 0.7 % (0.0-2.0); EOSINOPHILS # 1.4 10^3/ul (0.0-0.5); EOSINOPHILS % 16.8 % (0.0-7.0); HEMATOCRIT 31.1 % (37.0-47.0); HEMOGLOBIN 9.5 g/dl (12.0-16.0); LYMPHOCYTES # 1.3 10^3/ul (0.8-2.9); LYMPHOCYTES % 15.9 % (15.0-51.0); MEAN CORPUSCULAR HEMOGLOBIN 30.7 pg (29.0-33.0); MEAN CORPUSCULAR HGB CONC 30.5 g/dl (32.0-37.0); MEAN CORPUSCULAR VOLUME 100.6 fl (82.0-101.0); MONOCYTE # 0.7 10^3/ul (0.3-0.9); MONOCYTES % 8.3 % (0.0-11.0); NEUTROPHIL # 4.9 10^3/ul (1.6-7.5); NEUTROPHILS % 57.9 % (39.0-77.0); NUCLEATED RED BLOOD CELLS% 0.4 /100WBC (0.0-0.0); PLATELET COUNT 307 10^3/UL (140-415); RED BLOOD COUNT 3.09 10^6/ul (4.20-5.40); RED CELL DISTRIBUTION WIDTH 20.6 % (11.5-14.5); WHITE BLOOD COUNT 8.4 10^3/ul (4.8-10.8)
--- NOTE | 2017-06-14 12:58 | RADRPT ---
PROCEDURE: XR Chest AP portable CLINICAL INDICATION: Cough x1 week TECHNIQUE: An AP portable radiograph of the chest was submitted. COMPARISON: 06/01/2017 FINDINGS: Support Hardware: None Cardiovascular: The AICD generator and lead are stable in positioning. The heart is again borderline enlarged with the pulmonary vasculature upper normal. Lung Murphy: A poor inspiration again compresses lung parenchyma and the focus of infiltrate or atel ectasis seen at the lateral left lung base has resolved with the lungs otherwise clear. Pleural Spaces: No pneumothorax or pleural effusion is identified. Osseous Structures: The osseous structures appear intact. Soft Tissues: The soft tissues appear unremarkable. IMPRESSION: 1. The AICD generator and liter stable in positioning. 2. The heart is borderline prominent with the pulmonary vasculature unremarkable. 3. Resolution of the infiltrate or atelectatic change seen at the lateral left lung base with the steve ng murphy otherwise clear cava and a poor inspiratory effort. Physician Luz Date Time Electronically viewed and signed by Erika Willoughby Physician on 06/14/2017 12:58 RH/
[2017-06-14 13:09] LABS: CALCIUM 9.5 mg/dl (8.4-10.2); CREATININE 6.5 mg/dl (0.44-1.00); POTASSIUM 4.3 mmol/L (3.5-5.1)
[2017-06-14 13:21] LABS: TROPONIN-I 0.106 ng/ml (0.00-0.12)
[2017-06-14] MEDS ORDERED: HYDR-3652 PO (13:40)
[2017-06-14 13:46] VITALS: BP 157/98; PULSE 65; RESP 18; TEMP 97.9
--- NOTE | 2017-06-14 13:46 | ERD ---
ER Documentation Chief Complaint Date/Time DATE: 06/14/17 TIME: 13:41 Chief Complaint sob, ap, cough, had dialysis today HPI This is a very pleasant 47-year-old female history of end-stage renal disease with completion of dialysis today who is on home oxygen over the past month who presents with shortness of breath and chronic back pain. She describes lumbar back pain that is consistent with her chronic pain without bowel or bladder incontinence and/or retention. She states the pain is very similar to chronic pain in the past. She is asking for pain medication. Her main reason for visit today is that she is feeling short of breath. She states that since she was discharged approximately 1 month ago she has been short of breath. She uses home oxygen usually in the evenings and mornings. She does describe a cough that is dry nonproductive, no fevers or chills, no pleuritic pain or chest pain. Patient is concerned because of the persistence of shortness of breath and presents to the emergency room. No lower extremity swelling, travel or immobilization. ROS All systems reviewed and are negative except as per history of present illness. Medications Home Meds Active Scripts Hydrocodone Bit/Homatrop Me-Br ([place] 5-1.5 mg Tablet) 1 Each Tablet, 1 EACH PO TID Y for COUGH, #20 TAB Prov:BRIDGETT GUZMÁN MD 06/14/17 Docusate Sodium* (Colace*) 100 Mg Capsule, 100 MG PO BID, #60 CAP Prov:SHAAN ROOT PA-C 06/07/17 Hydrocodone/Acetaminophen ([place] 5-325 Tablet) 1 Each Tablet, 1 EACH PO Q6, #20 TAB Prov:SHAAN ROOT PA-C 06/07/17 Bisacodyl* (Bisacodyl*) 5 Mg Tablet.dr, 5 MG PO DAILY Y for CONSTIPATION for 14 Days Prov:REMI SIMPSON MD 05/27/17 Hydrocodone Bit-Acetaminophen (Hydrocodone Bit-APAP) 5-325MG Tablet, 1 TAB PO Q6H Y for MODERATE PAIN LEVEL 4-6 for 14 Days, TAB Prov:REMI SIMPSON MD 05/27/17 Hydralazine Hcl* (Apresoline*) 50 Mg Tab, 100 MG PO Q8 for 28 Days, TAB Prov:REMI SIMPSON MD 05/27/17 [Ipratropium 0.02% (Neb)] 0.5 MG/2.5 ML NEBU No Conflict Check, 0.5 MG HHN Q6H RESP THERAPY for 10 Days Prov:REMI SIMPSON MD 05/27/17 Albuterol Sulfate* (Albuterol Sulfate* Neb) 0.083%-3 Ml Neb, 2.5 MG HHN Q6H RESP THERAPY for 10 Days Prov:REMI SIMPSON MD 05/27/17 Doxycycline* (Vibramycin*) 100 Mg Tab, 100 MG PO BID for 7 Days, TAB Prov:REMI SIMPSON MD 05/27/17 Atorvastatin Calcium* (Atorvastatin Calcium*) 20 Mg Tablet, 20 MG PO QHS for hyper for 30 Days, #30 TAB Prov:TONY SANDOVAL 03/13/17 Nitroglycerin* (Nitrostat*) 0.4 Mg Tab.subl, 1 TAB SL .Q5M UP TO 3 DOSES Y for CHEST PAIN for 30 Days, #60 Prov:TONY SANDOVAL 03/13/17 Losartan Potassium* (Cozaar*) 50 Mg Tablet, 50 MG PO BID for 30 Days, #60 TAB Prov:TONY SANDOVAL 03/13/17 Aspirin (Aspirin) 81 Mg Chew, 81 MG PO DAILY for 30 Days, TAB Prov:TONY SANDOVAL 03/13/17 Carvedilol* (Coreg*) 25 Mg Tab, 25 MG PO BID for 30 Days, TAB Prov:REMI SIMPSON MD 12/26/15 Reported Medications Sevelamer Carbonate* (Renvela*) 800 Mg Tablet, 0.8 GM PO WITH MEALS, TAB 2 TABS TID WITH MEALS 10/07/16 Amlodipine Besylate* (Norvasc*) 5 Mg Tablet, 5 MG PO BID, TAB 10/06/16 Cinacalcet* (Sensipar*) 60 Mg Tablet, 60 MG PO DAILY, TAB 10/06/16 Diphenhydramine Hcl* (Benadryl*) 50 Mg Cap, 50 MG PO Q12 Y for ITCHING, CAP 10/06/16 Docusate Sodium* (Doc-Q-Lace*) 100 Mg Capsule, 100 MG PO BID Y for CONSTIPATION , CAP 10/06/16 Folic Acid* (Folic Acid*) 1 Mg Tablet, 1 MG PO DAILY, TAB 10/06/16 Pantoprazole* (Pantoprazole*) 40 Mg Tablet.dr, 40 MG PO DAILY, TAB 12/22/15 Lanthanum Carbonate* (Fosrenol*) 500 Mg Tab.chew, 500 MG PO TID, TAB.CHEW WITH MEALS 01/11/15 Allergies Allergies: Coded Allergies: valacyclovir (Verified Allergy, Mild, 06/06/17) per pt she has nightmares and hallucinations PMhx/Soc History of Surgery: Yes (CHOLECYSTECTOMY,SPLEENECTOMY,C SECTION,AV FISTULA) Anesthesia Reaction: No Hx Neurological Disorder: No Hx Respiratory Disorders: No Hx Cardiac Disorders: Yes (HTN,PACEMAKER) Hx Psychiatric Problems: No Hx Miscellaneous Medical Probl: Yes (ANEMIA,LUPUS) Hx Alcohol Use: No Hx Substance Use: No Hx Tobacco Use: No Smoking Status: Never smoker FmHx Family History: No diabetes Physical Exam Vitals Vital Signs Date Time Temp Pulse Resp B/P Pulse Ox O2 Delivery O2 Flow Rate FiO2 06/14/17 13:35 Nasal Cannula 2 06/14/17 11:13 98.1 94 18 169/90 96 Physical Exam General: Well developed, well nourished, no acute distress Head: Normocephalic, atraumatic. Eyes: Pupils equally reactive, EOM intact ENT: Moist mucous membranes Neck: Supple, no lymphadenopathy Respiratory: Lungs clear bilaterally, no distress Cardiovascular: RRR, no murmurs, rubs, or gallops Abdominal: Soft, non-tender, non-distended, no peritoneal signs : Deferred MSK: No edema, no unilateral swelling, 5/5 strength Neurologic: Alert and oriented, moving all extremities, normal speech, no focal weakness, no cerebellar signs Skin: No rash Psych: Normal mood Result Diagram: 06/14/17 1232 06/14/17 1232 Results 24 hrs Laboratory Tests Test 06/14/17 12:32 White Blood Count 8.410^3/ul Red Blood Count 3.0910^6/ul Hemoglobin 9.5g/dl Hematocrit 31.1% Mean Corpuscular Volume 100.6fl Mean Corpuscular Hemoglobin 30.7pg Mean Corpuscular Hemoglobin Concent 30.5g/dl Red Cell Distribution Width 20.6% Platelet Count 33887^3/UL Mean Platelet Volume 11.0fl Neutrophils % 57.9% Lymphocytes % 15.9% Monocytes % 8.3% Eosinophils % 16.8% Basophils % 0.7% Nucleated Red Blood Cells % 0.4/100WBC Neutrophils # 4.910^3/ul Lymphocytes # 1.310^3/ul Monocytes # 0.710^3/ul Eosinophils # 1.410^3/ul Basophils # 0.110^3/ul Nucleated Red Blood Cells # 0.010^3/ul Sodium Level 141mmol/L Potassium Level 4.3mmol/L Chloride Level 103mmol/L Carbon Dioxide Level 28mmol/L Anion Gap 14 Blood Urea Nitrogen 34mg/dl Creatinine 6.50mg/dl Glucose Level 92mg/dl Calcium Level 9.5mg/dl Troponin I 0.106ng/ml Current Medications Medications (Trade) Dose Ordered Sig/Halie Route PRN Reason Start Time Stop Time Status Last Admin Dose Admin Acetaminophen/ Hydrocodone Bitart ([place] (10/325)) 1 tab ONCE ONCE PO 06/14/17 12:30 06/14/17 12:31 DC 06/14/17 12:51 Ondansetron HCl (Zofran Odt) 4 mg ONCE STAT ODT 06/14/17 12:14 06/14/17 12:16 DC 06/14/17 12:50 Procedures/MDM EKG, MONITORS, & DIAGNOSTIC IMAGING: EKG: I reviewed and interpreted a 12-lead EKG. Rhythm: Normal sinus rhythm Ectopy: None Intervals: No abnormalities ST segments: No elevations or depressions T waves: No contiguous inversions Chest x-ray: I reviewed and interpreted a 1 view of the chest Mediastinum: No enlargement Cardiac silhouette: No cardiomegaly Airspace: Clear lung murphy bilaterally without evidence of pneumothorax Bones: No evidence of fracture LAB INTERPRETATION: Baseline renal failure, no hyperkalemia, baseline anemia better than baseline MEDICAL DECISION MAKING: The patient presents with shortness of breath for approximately 1 month. She thinks that there is a little cough over the last several days to 1 week. Her differential includes viral process versus chronic lung disease. The patient is chronically on oxygen at home without signs or symptoms concerning for an exacerbation or increase oxygen requirement. Differential includes pulmonary edema, pneumonia or pulmonary hypertension. The patient does not exhibit any signs or symptoms of significant volume overload or CHF. The patient does have a history of anemia, consider anemia causing her shortness of breath as well. Given the complex nature of the patient I believe laboratory testing and diagnostic imaging would be most appropriate. The patient's low back pain is unlikely related to serious etiology. The patient exhibits no clinical signs or symptoms and has no history or risk factors to suggest cauda equina, cord compression, epidural abscess, epidural hematoma, acute aortic aneurysm or dissection. ER COURSE: The patient was given [place] for her back pain. The patient's laboratory analysis is reassuring with stable hemoglobin, no leukocytosis, no hyperkalemia. At this point there is unclear etiology of the patient's shortness of breath. Underlying lung disease is certainly possible, consideration for pulmonary hypertension is also possible. However, the patient does not exhibit any significant etiology that warrants hospitalization or intervention. No evidence of pneumonia, pneumothorax, pulmonary edema or significant volume overload. Outpatient follow-up with her primary care physician is most appropriate, pulmonology referral may be indicated as well. I believe the patient can continue her home oxygen. I do not believe a trial of steroids is necessary. The patient is asking for cough medication and will be provided. Consider viral process as well. No indication for antibiotics. I kept the patient and/or family informed of laboratory and diagnostic imaging results throughout the emergency room course. DISPOSITION PLAN: We discussed follow up with the patient's primary care doctor within 24 to 48 hours as needed. We also discussed return to the emergency room for worsening symptoms or worsening condition. Outpatient referral: [None required] Discharge Medications: Hycodan Departure Diagnosis: Primary Impression: Shortness of breath Additional Impressions: Chronic low back pain Back pain laterality: unspecified Sciatica presence: without sciatica Qualified Code: M54.5 - Chronic low back pain without sciatica, unspecified back pain laterality End stage renal disease on dialysis Condition: Stable Patient Instructions: Coping with Shortness of Breath: Controlling Stress Additional Instructions: Call your primary care doctor TOMORROW for an appointment during the next 1 WEEK.Tell the secretary receptionist that you were referred from this facility.See the doctor sooner or return here if your condition worsens before your appointment time. BRIDGETT GUZMÁN MD Jun 14, 2017 13:46
== END 2017-06-14 14:25 | disposition home or self-care (01) ==
LOC: E/R 11:06
DX: R06.02 Shortness of breath (principal); M54.5 Low back pain; I12.0 Hypertensive chronic kidney disease with stage 5 chronic kidney disease or end stage renal disease; N18.6 End stage renal disease; Z79.82 Long term (current) use of aspirin; Z95.0 Presence of cardiac pacemaker
CPT/HCPCS: 36415; 71010; 80048; 84484; 85025; 93005

== ENCOUNTER 2017-06-21 11:51 | Inpatient (IN) | payer MEDICARE, OTHER ==
[~2017-06-21] VITALS: Ht 160 cm; Wt 61.5 kg
[~2017-06-21 11:51] MED LIST changes: +HYDR-3652 PO
[2017-06-21 12:19] VITALS: Ht 160 cm; Wt 61.5 kg
--- NOTE | 2017-06-21 14:15 | ERA ---
ER Documentation Chief Complaint Date/Time DATE: 06/21/17 TIME: 14:14 Chief Complaint DIALYSIS TODAY WITH HIGH BLOOD PRESSURE AND SHORTNESS OF BREATH HPI The patient is a 47-year-old female, presenting to the ER because of acute shortness of breath and acute elevated blood pressure during dialysis. She had about 2-1/2 hour out of the home of normal 3 hours dialysis before transferred to the ER. She was treated with clonidine 0.2 mg p.o. 2 at dialysis center. She denies fever, chills, neck pain, chest pain, abdominal pain, vomiting, dysuria, diarrhea. She has intermittent cough for the last 3 weeks and complains of chronic low back pain. She does not smoke nor drink Past medical history: Hypertension, chronic kidney disease, systemic lupus erythematosus, CAD, dyslipidemia, cardiomyopathy, history of CHF, chronic low back pain. X Past medical history: Cholecystectomy, splenectomy, , left upper cavity AV fistula, pacemaker ROS All systems reviewed and are negative except as per history of present illness. Medications Home Meds Active Scripts Hydrocodone/Acetaminophen ([place] 5-325 Tablet) 1 Each Tablet, 1 EACH PO Q6, #20 TAB Prov:SHAAN ROOT PA-C 06/07/17 Bisacodyl* (Bisacodyl*) 5 Mg Tablet.dr, 5 MG PO DAILY Y for CONSTIPATION for 14 Days Prov:REMI SIMPSON MD 05/27/17 Hydralazine Hcl* (Apresoline*) 50 Mg Tab, 100 MG PO Q8 for 28 Days, TAB Prov:REMI SIMPSON MD 05/27/17 [Ipratropium 0.02% (Neb)] 0.5 MG/2.5 ML NEBU No Conflict Check, 0.5 MG HHN Q6H RESP THERAPY for 10 Days Prov:REMI SIMPSON MD 05/27/17 Albuterol Sulfate* (Albuterol Sulfate* Neb) 0.083%-3 Ml Neb, 2.5 MG HHN Q6H RESP THERAPY for 10 Days Prov:REMI SIMPSON MD 05/27/17 Doxycycline* (Vibramycin*) 100 Mg Tab, 100 MG PO BID for 7 Days, TAB Prov:REMI SIMPSON MD 05/27/17 Atorvastatin Calcium* (Atorvastatin Calcium*) 20 Mg Tablet, 20 MG PO QHS for hyper for 30 Days, #30 TAB Prov:MADINABONNIETONY Gonzalez 03/13/17 Nitroglycerin* (Nitrostat*) 0.4 Mg Tab.subl, 1 TAB SL .Q5M UP TO 3 DOSES Y for CHEST PAIN for 30 Days, #60 Prov:APOORVA RYANA 03/13/17 Losartan Potassium* (Cozaar*) 50 Mg Tablet, 50 MG PO BID for 30 Days, #60 TAB Prov:APOORVA SANDOVALA 03/13/17 Aspirin (Aspirin) 81 Mg Chew, 81 MG PO DAILY for 30 Days, TAB Prov:APOORVA SANDOVALA 03/13/17 Carvedilol* (Coreg*) 25 Mg Tab, 25 MG PO BID for 30 Days, TAB Prov:REMI SIMPSON MD 12/26/15 Reported Medications Sevelamer Carbonate* (Renvela*) 800 Mg Tablet, 0.8 GM PO WITH MEALS, TAB 2 TABS TID WITH MEALS 10/07/16 Amlodipine Besylate* (Norvasc*) 5 Mg Tablet, 5 MG PO BID, TAB 10/06/16 Cinacalcet* (Sensipar*) 60 Mg Tablet, 60 MG PO DAILY, TAB 10/06/16 Diphenhydramine Hcl* (Benadryl*) 50 Mg Cap, 50 MG PO Q12 Y for ITCHING, CAP 10/06/16 Folic Acid* (Folic Acid*) 1 Mg Tablet, 1 MG PO DAILY, TAB 10/06/16 Pantoprazole* (Pantoprazole*) 40 Mg Tablet.dr, 40 MG PO DAILY, TAB 12/22/15 Lanthanum Carbonate* (Fosrenol*) 500 Mg Tab.chew, 500 MG PO TID, TAB.CHEW WITH MEALS 01/11/15 Discontinued Reported Medications Docusate Sodium* (Doc-Q-Lace*) 100 Mg Capsule, 100 MG PO BID Y for CONSTIPATION , CAP 10/06/16 Discontinued Scripts Hydrocodone Bit/Homatrop Me-Br ([place] 5-1.5 mg Tablet) 1 Each Tablet, 1 EACH PO TID Y for COUGH, #20 TAB Prov:BRIDGETT GUZMÁN MD 06/14/17 Docusate Sodium* (Colace*) 100 Mg Capsule, 100 MG PO BID, #60 CAP Prov:SHAAN ROOT PA-C 06/07/17 Hydrocodone Bit-Acetaminophen (Hydrocodone Bit-APAP) 5-325MG Tablet, 1 TAB PO Q6H Y for MODERATE PAIN LEVEL 4-6 for 14 Days, TAB Prov:REMI SIMPSON MD 05/27/17 Allergies Allergies: Coded Allergies: valacyclovir (Verified Allergy, Mild, 06/06/17) per pt she has nightmares and hallucinations PMhx/Soc History of Surgery: Yes (CHOLECYSTECTOMY,SPLEENECTOMY,C SECTION,AV FISTULA) Anesthesia Reaction: No Hx Neurological Disorder: No Hx Respiratory Disorders: No Hx Cardiac Disorders: Yes (HTN,PACEMAKER) Hx Psychiatric Problems: No Hx Miscellaneous Medical Probl: Yes (ANEMIA,LUPUS) Hx Alcohol Use: No Hx Substance Use: No Hx Tobacco Use: No Physical Exam Vitals Vital Signs Date Time Temp Pulse Resp B/P Pulse Ox O2 Delivery O2 Flow Rate FiO2 06/21/17 16:24 99 18 148/103 99 Room Air 06/21/17 15:00 92 18 195/164 98 Room Air 06/21/17 12:19 97.9 104 18 198/114 97 Physical Exam Const: No acute distress. Head: Atraumatic. Eyes: Normal Conjunctiva. ENT: Normal External Ears, Nose and Mouth. Neck: Full range of motion. No meningismus. Resp: Clear to auscultation bilaterally. Cardio: Regular rate and rhythm. Abd: Soft, non distended, normal bowel sounds, non tender. Skin: No petechiae or rashes. Back: No midline or flank tenderness. Ext: No cyanosis, or edema. Neur: Awake and alert. No focal deficit Psych: Normal Mood and Affect. Result Diagram: 06/21/17 1507 06/21/17 1507 Results 24 hrs Laboratory Tests Test 06/21/17 15:07 White Blood Count 8.010^3/ul Red Blood Count 3.1510^6/ul Hemoglobin 10.2g/dl Hematocrit 32.6% Mean Corpuscular Volume 103.5fl Mean Corpuscular Hemoglobin 32.4pg Mean Corpuscular Hemoglobin Concent 31.3g/dl Red Cell Distribution Width 21.1% Platelet Count 01586^3/UL Mean Platelet Volume 10.6fl Neutrophils % 67.0% Lymphocytes % 14.7% Monocytes % 8.0% Eosinophils % 8.7% Basophils % 1.4% Nucleated Red Blood Cells % 0.9/100WBC Neutrophils # 5.410^3/ul Lymphocytes # 1.210^3/ul Monocytes # 0.610^3/ul Eosinophils # 0.710^3/ul Basophils # 0.110^3/ul Nucleated Red Blood Cells # 0.110^3/ul Prothrombin Time 12.3Sec Prothrombin Time Ratio 1.0 INR International Normalized Ratio 0.91 Activated Partial Thromboplast Time 40.3Sec Sodium Level 141mmol/L Potassium Level 4.6mmol/L Chloride Level 104mmol/L Carbon Dioxide Level 25mmol/L Anion Gap 17 Blood Urea Nitrogen 38mg/dl Creatinine 8.23mg/dl Glucose Level 98mg/dl Lactic Acid Level 1.2mmol/L Calcium Level 10.1mg/dl Total Bilirubin 0.0mg/dl Direct Bilirubin 0.00mg/dl Indirect Bilirubin 0.0mg/dl Aspartate Amino Transf (AST/SGOT) 50IU/L Alanine Aminotransferase (ALT/SGPT) 46IU/L Alkaline Phosphatase 555IU/L Troponin I 0.112ng/ml Total Protein 9.2g/dl Albumin 4.1g/dl Globulin 5.10g/dl Albumin/Globulin Ratio 0.80 Current Medications Medications (Trade) Dose Ordered Sig/Halie Route PRN Reason Start Time Stop Time Status Last Admin Dose Admin Morphine Sulfate (morphine) 2 mg ONCE ONCE IV 06/21/17 14:30 06/21/17 14:31 Cancel Ondansetron HCl (Zofran Inj) 4 mg ONCE STAT IV 06/21/17 14:22 06/21/17 14:23 Cancel Acetaminophen/ Hydrocodone Bitart ([place] (5/325)) 1 tab ONCE ONCE PO 06/21/17 15:00 06/21/17 15:01 DC Ondansetron HCl (Zofran Odt) 4 mg ONCE STAT ODT 06/21/17 14:48 06/21/17 14:50 DC Lidocaine (Xylocaine 1% (Mpf)) 5 ml ONCE ONCE SC 06/21/17 15:30 06/21/17 15:31 DC Ondansetron HCl (Zofran Inj) 4 mg ONCE STAT IV 06/21/17 15:35 06/21/17 15:38 DC 06/21/17 15:42 Morphine Sulfate (morphine) 2 mg ONCE ONCE IV 06/21/17 16:00 06/21/17 16:01 DC 06/21/17 15:43 Procedures/MDM [place] [id number] Radiology Main Line: [phone] DIAGNOSTIC IMAGING REPORT Patient: ANYA GO : 1970 Age: 47 Sex: F MR #: [id number] DOS: 06/21/17 1422 Ordering MD: NEO CAMPBELL MD Location: E/R Room/Bed: PROCEDURE: XR Chest. CLINICAL INDICATION: Shortness of breath. TECHNIQUE: Single frontal view. COMPARISON: 06/14/2017. FINDINGS: There is mild interstitial disease bilaterally consistent with pulmonary edema. The lungs are otherwise clear. The heart is enlarged. There is a right-sided single lead automatic internal cardiac defibrillator. There is no pleural effusion. There is no pneumothorax. IMPRESSION: 1. Mild pulmonary edema. 2. Cardiomegaly. 3. AICD. RPTAT: QQ .Manoj Otoole MD, MD Date Time Electronically viewed and signed by .Manoj Otoole MD, MD on 06/21/2017 14:58 .R/ CC: NEO CAMPBELL MD MEDICAL MAKING DECISION: The patient is a 47-year-old female, presenting with acute fluid overload, acute accelerated hypertension. She was treated with morphine 2 mg IV for her chronic pain and Zofran 4 mg IV for nausea with good response The differential diagnoses considered include but are not limited to asthma, COPD, pneumonia, pulmonary embolus, pleural effusion, congestive heart failure. Departure Diagnosis: Primary Impression: Fluid overload Additional Impressions: Accelerated hypertension Anemia Condition: Stable Comments I discussed the findings with the patient. I discussed the patient with her physician Dr. Simpson at 4:20 pm who was made aware of the lab, the treatment, the patient condition. The patient is admitted to [facility] for 24 obs NEO CAMPBELL MD Jun 21, 2017 14:15
[2017-06-21] MEDS ORDERED: ONDANSETRON 4 MG INJ IV STA ×2 (14:22→15:35)
[2017-06-21] MEDS ORDERED: morphine 2 MG INJ IV ONE ×2 (14:30→16:00)
[2017-06-21] MEDS ORDERED: ONDANSETRON (ODT) 4 MG TAB ODT STA (14:48)
--- NOTE | 2017-06-21 14:59 | RADRPT ---
PROCEDURE: XR Chest. CLINICAL INDICATION: Shortness of breath. TECHNIQUE: Single frontal view. COMPARISON: 06/14/2017. FINDINGS: There is mild interstitial disease bilaterally consistent with pulmonary edema. The lungs are otherw ise clear. The heart is enlarged. There is a right-sided single lead automatic internal cardiac defibrillator. There is no pleural effusion. There is no pneumothorax. IMPRESSION: 1. Mild pulmonary edema. 2. Cardiomegaly. 3. AICD. RPTAT: QQ .Manoj Otoole MD, MD Date Time Electronically viewed and signed by .Manoj Otoole MD, MD on 06/21/2017 14:58 .R/
[2017-06-21] MEDS ORDERED: HYDROCODONE/APAP (5/325) TAB PO ONE (15:00)
[2017-06-21 15:19] LABS: BASOPHIL # 0.1 10^3/ul (0.0-0.1); BASOPHILS % 1.4 % (0.0-2.0); EOSINOPHILS # 0.7 10^3/ul (0.0-0.5); EOSINOPHILS % 8.7 % (0.0-7.0); HEMATOCRIT 32.6 % (37.0-47.0); HEMOGLOBIN 10.2 g/dl (12.0-16.0); LYMPHOCYTES # 1.2 10^3/ul (0.8-2.9); LYMPHOCYTES % 14.7 % (15.0-51.0); MEAN CORPUSCULAR HEMOGLOBIN 32.4 pg (29.0-33.0); MEAN CORPUSCULAR HGB CONC 31.3 g/dl (32.0-37.0); MEAN CORPUSCULAR VOLUME 103.5 fl (82.0-101.0); MEAN PLATELET VOLUME 10.6 fl (7.4-10.4); MONOCYTE # 0.6 10^3/ul (0.3-0.9); NEUTROPHIL # 5.4 10^3/ul (1.6-7.5); NUCLEATED RED BLOOD CELLS # 0.1 10^3/ul (0.0-0.0); NUCLEATED RED BLOOD CELLS% 0.9 /100WBC (0.0-0.0); PLATELET COUNT 270 10^3/UL (140-415); RED BLOOD COUNT 3.15 10^6/ul (4.20-5.40); RED CELL DISTRIBUTION WIDTH 21.1 % (11.5-14.5)
[2017-06-21] MEDS ORDERED: LIDOCAINE 1% (MPF) 5 ML VIAL SC ONE (15:30)
[2017-06-21 15:33] LABS: INR 0.91; PROTIME 12.3 Sec (12.2-14.2)
[2017-06-21 15:34] LABS: PARTIAL THROMBOPLASTIN TIME 40.3 Sec (25.0-35.0)
[2017-06-21 15:45] LABS: ALBUMIN 4.1 g/dl (3.3-4.9); ALBUMIN/GLOBULIN RATIO 0.8; CALCIUM 10.1 mg/dl (8.4-10.2); CREATININE 8.23 mg/dl (0.44-1.00); POTASSIUM 4.6 mmol/L (3.5-5.1); TOTAL PROTEIN 9.2 g/dl (6.1-8.1)
[2017-06-21 15:55] LABS: TROPONIN-I 0.112 ng/ml (0.00-0.12)
[2017-06-21] MEDS ORDERED: DIPHENHYDRAMINE 50 MG INJ IV ONE (17:00)
[2017-06-21] MEDS ORDERED: BISACODYL (EC) 5 MG TAB PO PRN ×2 (20:00→20:30)
[2017-06-21] MEDS ORDERED: NITROGLYCERIN (SL) 0.4 MG TAB SL PRN (20:00)
--- NOTE | 2017-06-21 20:12 | QN ---
Documentation Comment [id number] REMI SIMPSON MD Jun 21, 2017 20:12
[2017-06-21] MEDS: HYDROCODONE/APAP (5/325) TAB PO PRN (20:15)
[2017-06-21] MEDS ORDERED: ACETAMINOPHEN 650 MG SUPP PR PRN (20:30)
[2017-06-21] MEDS ORDERED: NACL 0.9% 3 ML SYG IV SCH (20:30)
[2017-06-21] MEDS ORDERED: ACETAMINOPHEN 325 MG TAB PO PRN (20:30)
[2017-06-21] MEDS ORDERED: DOCUSATE SODIUM 100 MG CAP PO PRN (20:30)
[2017-06-21] MEDS ORDERED: MAGNESIUM HYDROXIDE 30ML CUP PO PRN (20:30)
[2017-06-21] MEDS: LANTHANUM 500 MG CHEW PO SCH (21:00)
[2017-06-21 21:18] VITALS: PULSE 98
[2017-06-21] MEDS: ONDANSETRON 4 MG INJ IV PRN (21:35)
[2017-06-21] MEDS: HYDROmorphONE 1 MG/ML SYG IV PRN (21:36)
[2017-06-21] MEDS: ATORVASTATIN 20 MG TAB PO SCH (21:38)
[2017-06-21] MEDS: AMLODIPINE 5 MG TAB PO SCH (21:38)
[2017-06-21] MEDS: LOSARTAN 50 MG TAB PO SCH (21:38)
[2017-06-21] MEDS: ALBUTEROL 0.083% (NEB) 2.5 MG/3 ML AMP HHN SCH (22:42)
[2017-06-21] MEDS: DIPHENHYDRAMINE 50 MG INJ IV PRN (23:00)
--- NOTE | 2017-06-21 23:04 | HP ---
DATE OF ADMISSION: 06/21/2017 HISTORY OF PRESENT ILLNESS: The patient is a 47-year-old female with ESRD, hypertension, history of CAD, AICD device placement. Has history of cholecystectomy, abdominal pain. Went to the dialysis c enter with short of breath, uncontrolled hypertension, was not feeling good after dialysis, was shor t of breath and presented to the ER where she was noted to have hypertension and blood pressure 160/ 96. Chest x-ray shows patient has pulmonary edema. The patient's hematocrit 32.6. Sodium 141, pot assium 4.6. Chest x-ray: Mild pulmonary edema, cardiomegaly, AICD device placement. PAST MEDICAL HISTORY: Positive for cholecystectomy, hypertension, dyslipidemia, history of ESRD, hi story of congestive heart failure, history of decreased ejection fraction, history of coronary dudley ogram clearly with no PCI in the past. The patient has history of chronic hyperparathyroidism, hype rphosphatemia, history of ____ and rhythm of AV graft, history of AICD device placement, history of anemia, history of blood transfusion, history of sepsis, history of CHF and history of positive trop onin. ALLERGY: VALACYCLOVIR. SOCIAL HISTORY: Negative. FAMILY HISTORY: Negative. MEDICATION HISTORY: Listed as the patient is on albuterol, amlodipine, aspirin, Lipitor, Bisacodyl, Coreg, Sensipar, diphenhydramine, doxycycline, folic acid, hydralazine, hydrocodone, lanthanum carbo carol, Losartan, nitroglycerin, Protonix and Renvela. REVIEW OF SYSTEMS HEENT: Unremarkable. RESPIRATORY: Short of breath. CARDIOVASCULAR: No chest pain, palpitation right now. ABDOMEN: Unremarkable. EXTREMITIES: Unremarkable. PHYSICAL EXAMINATION: GENERAL: The patient is awake, alert. VITAL SIGNS: Pulse 102, blood pressure 160/96. HEAD: Atraumatic, normocephalic. Pupils equal, reactive to light. Conjunctivae no icterus. NECK: Supple. LUNGS: Rhonchi and few rales were noted. CARDIOVASCULAR: S1, S2 normal. Systolic murmur noted. ABDOMEN: Soft. Bowel sounds present. No palpable mass. The Surgical scar of cholecystectomy note d. EXTREMITIES: No cyanosis, clubbing. Edema positive. 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 CENTRAL NERVOUS SYSTEM: The patient is awake, alert with no focal deficit. LABORATORY DATA: As mentioned above. IMPRESSION: 1. End-stage renal disease. 2. Hypertension. 3. Pulmonary edema. 4. Abnormal liver function tests. 5. History of cholecystectomy. 6. Automatic implantable cardioverter defibrillator device placement. 7. Hyperparathyroidism, hyperphosphatemia, anemia. The patient has history of pulmonary edema. PLAN: To continue blood pressure control, home medications, pain medication. Hemodialysis will be o rdered. Dictated By: REMI EDEN/LUAN Conf#: [id number] DID#: [id number]
[2017-06-21 23:43] VITALS: BP 187/102; RESP 18
[2017-06-22] VITALS (19 sets, daily range): BP systolic 135–213; BP diastolic 76–103; PULSE 84–112; RESP 17–19
[2017-06-22] MEDS: DIPHENHYDRAMINE 50 MG CAP PO PRN ×2 (01:00→16:28)
[2017-06-22] MEDS: hydrALAzine 20 MG INJ IV PRN ×2 (01:00→16:28)
[2017-06-22] MEDS: ALBUTEROL 0.083% (NEB) 2.5 MG/3 ML AMP HHN SCH ×4 (01:47→19:42)
[2017-06-22] MEDS: HYDROCODONE/APAP (5/325) TAB PO PRN ×2 (02:25→23:07)
[2017-06-22] MEDS: HYDROmorphONE 1 MG/ML SYG IV PRN ×3 (04:27→17:46)
[2017-06-22 07:51] LABS: ALBUMIN 3.8 g/dl (3.3-4.9); ALBUMIN/GLOBULIN RATIO 0.84; CREATININE 9.55 mg/dl (0.44-1.00); POTASSIUM 5.8 mmol/L (3.5-5.1); TOTAL PROTEIN 8.3 g/dl (6.1-8.1)
[2017-06-22] MEDS: SEVELAMER CARBONATE 0.8 GM PKT PO SCH ×3 (08:30→17:46)
[2017-06-22] MEDS: PANTOPRAZOLE (EC) 40 MG TAB PO SCH (08:33)
[2017-06-22] MEDS: ASPIRIN 81 MG TAB PO SCH (08:33)
[2017-06-22] MEDS: FOLIC ACID 1 MG TAB PO SCH (08:33)
[2017-06-22] MEDS: LOSARTAN 50 MG TAB PO SCH ×2 (08:34→23:06)
[2017-06-22] MEDS: AMLODIPINE 5 MG TAB PO SCH ×2 (08:34→23:06)
[2017-06-22] MEDS: CINACALCET 30 MG TAB PO SCH (08:34)
[2017-06-22] MEDS: LANTHANUM 500 MG CHEW PO SCH ×3 (08:34→23:05)
[2017-06-22] MEDS: DIPHENHYDRAMINE 50 MG INJ IV PRN (08:35)
--- NOTE | 2017-06-22 18:43 | PN ---
Date/Time of Note Date/Time of Note DATE: 06/22/17 TIME: 18:42 Assessment/Plan VTE Prophylaxis VTE Prophylaxis Intervention: other Lines/Catheters [facility] Type [facility] Saline Lock Urinary Cath still in place: No Assessment/Plan Chief Complaint/Hosp Course IMPRESSION: 1. End-stage renal disease. 2. Hypertension. 3. Pulmonary edema. 4. Abnormal liver function tests. 5. History of cholecystectomy. 6. Automatic implantable cardioverter defibrillator device placement. 7. Hyperparathyroidism, hyperphosphatemia, anemia. The patient has history of pulmonary edema. PLAN HD Problems: Subjective 24 Hr Interval Summary Subjective hx not possible: other (SOB+) Respiratory: shortness of breath Exam/Review of Systems Vital Signs Vitals Vital Signs Date Time Temp Pulse Resp B/P Pulse Ox O2 Delivery O2 Flow Rate FiO2 06/22/17 16:17 89 06/22/17 15:38 98.2 17 184/79 98 06/22/17 14:17 2.0 06/22/17 14:17 Nasal Cannula 06/21/17 22:46 21 Intake and Output 06/21/17 06/21/17 06/22/17 15:00 23:00 07:00 Intake Total 300 ml Balance 300 ml Exam Neck: supple Respiratory: diminished breath sounds Cardiovascular: regular rate and rhythm Gastrointestinal: bowel sounds (+), soft Extremities: No edema Results Result Diagram: 06/21/17 1507 06/22/17 0648 Results 24 hrs Laboratory Tests Test 06/21/17 19:10 06/22/17 06:48 Lactic Acid Level 1.1 Sodium Level 139 Potassium Level 5.8 H Chloride Level 103 Carbon Dioxide Level 24 Anion Gap 18 H Blood Urea Nitrogen 49 #H Creatinine 9.55 H Glucose Level 72 Calcium Level 10.0 Total Bilirubin 0.0 L Direct Bilirubin 0.00 Indirect Bilirubin 0.0 Aspartate Amino Transf (AST/SGOT) 59 H Alanine Aminotransferase (ALT/SGPT) 43 Alkaline Phosphatase 478 H Total Protein 8.3 H Albumin 3.8 Globulin 4.50 H Albumin/Globulin Ratio 0.84 Medications Medications Current Medications Amlodipine Besylate (Norvasc) 5 mg BID PO Last administered on 06/22/17 08:34 ; Admin Dose 5 MG; Start 06/21/17 at 21:00 Aspirin (Aspirin) 81 mg DAILY PO Last administered on 06/22/17 08:33; Admin Dose 81 MG; Start 06/22/17 at 09:00 Atorvastatin Calcium (Lipitor) 20 mg QHS PO Last administered on 06/21/17 21: 38; Admin Dose 20 MG; Start 06/21/17 at 21:00 Bisacodyl (Dulcolax) 5 mg DAILY PRN PO CONSTIPATION; Start 06/21/17 at 20:00 Carvedilol (Coreg) 25 mg BID PO Last administered on 06/22/17 08:35; Admin Dose 25 MG; Start 06/21/17 at 21:00 Cinacalcet (Sensipar) 60 mg DAILY PO Last administered on 06/22/17 08:34; Admin Dose 60 MG; Start 06/22/17 at 09:00 Diphenhydramine HCl (Benadryl) 50 mg Q12 PRN PO ITCHING Last administered on 01:00; Admin Dose 50 MG; Start 06/21/17 at 20:00 Folic Acid (Folic Acid) 1 mg DAILY PO Last administered on 06/22/17 08:33; Admin Dose 1 MG; Start 06/22/17 at 09:00 Hydralazine HCl (Apresoline) 100 mg Q8 PO Last administered on 06/22/17 16:29 ; Admin Dose 100 MG; Start 06/21/17 at 22:00 Acetaminophen/ Hydrocodone Bitart ([place] (5/325)) 1 tab Q6 PRN PO PAIN Last administered on 06/22/17 02:25; Admin Dose 1 TAB; Start 06/21/17 at 20:00 Lanthanum Carbonate (Fosrenol) 500 mg TID PO Last administered on 06/22/17 12 :36; Admin Dose 500 MG; Start 06/21/17 at 21:00 Losartan Potassium (Cozaar) 50 mg BID PO Last administered on 06/22/17 08:34 ; Admin Dose 50 MG; Start 06/21/17 at 21:00 Pantoprazole (Protonix Tab) 40 mg DAILY PO Last administered on 06/22/17 08: 33; Admin Dose 40 MG; Start 06/22/17 at 09:00 Ondansetron HCl (Zofran Inj) 4 mg Q6H PRN IV NAUSEA AND/OR VOMITING Last administered on 06/21/17 21:35; Admin Dose 4 MG; Start 06/21/17 at 20:30 Acetaminophen (Tylenol Tab) 650 mg Q6H PRN PO PAIN LEVEL 1-3 OR FEVER; Start 06/21/17 at 20:30 Acetaminophen (Tylenol Supp) [address] PAIN LEVEL 1-3 OR FEVER; Start 06/21/17 at 20:30 Docusate Sodium (Colace) 100 mg Q12H PRN PO CONSTIPATION; Start 06/21/17 at 20: 30 Magnesium Hydroxide (Milk Of Mag) 30 ml DAILY PRN PO CONSTIPATION; Start at 20:30 Bisacodyl (Dulcolax) 5 mg DAILY PRN PO CONSTIPATION; Start 06/21/17 at 20:30 Diphenhydramine HCl (Benadryl) 25 mg BID PRN IV ITCHING Last administered on 08:35; Admin Dose 25 MG; Start 06/21/17 at 20:30 Hydromorphone HCl (Dilaudid) 0.5 mg Q6 PRN IV PAIN Last administered on 17:46; Admin Dose 0.5 MG; Start 06/21/17 at 20:30 Hydralazine HCl (Apresoline) 20 mg Q6H PRN IV ELEVATED BLOOD PRESSURE Last administered on 06/22/17 16:28; Admin Dose 20 MG; Start 06/22/17 at 00:00 REMI SIMPSON MD Jun 22, 2017 18:43
[2017-06-22] MEDS: ATORVASTATIN 20 MG TAB PO SCH (23:06)
[2017-06-23] VITALS (20 sets, daily range): BP systolic 138–204; BP diastolic 69–94; PULSE 80–90; RESP 18–22
[2017-06-23] MEDS: ALBUTEROL 0.083% (NEB) 2.5 MG/3 ML AMP HHN SCH ×4 (01:32→19:48)
[2017-06-23] MEDS: DIPHENHYDRAMINE 50 MG INJ IV PRN ×2 (03:15→15:08)
[2017-06-23] MEDS: hydrALAzine 20 MG INJ IV PRN (07:37)
[2017-06-23] MEDS: HYDROmorphONE 1 MG/ML SYG IV PRN ×3 (07:38→20:05)
[2017-06-23] MEDS: FOLIC ACID 1 MG TAB PO SCH (08:31)
[2017-06-23] MEDS: PANTOPRAZOLE (EC) 40 MG TAB PO SCH (08:31)
[2017-06-23] MEDS: ASPIRIN 81 MG TAB PO SCH (08:31)
[2017-06-23] MEDS: LOSARTAN 50 MG TAB PO SCH ×2 (08:32→21:02)
[2017-06-23] MEDS: AMLODIPINE 5 MG TAB PO SCH ×2 (08:32→21:01)
[2017-06-23] MEDS: LANTHANUM 500 MG CHEW PO SCH ×3 (08:33→21:20)
[2017-06-23] MEDS: CINACALCET 30 MG TAB PO SCH (08:33)
[2017-06-23] MEDS: SEVELAMER CARBONATE 0.8 GM PKT PO SCH ×3 (08:33→17:18)
[2017-06-23 08:49] LABS: CALCIUM 9.1 mg/dl (8.4-10.2); CREATININE 8.09 mg/dl (0.44-1.00)
[2017-06-23] MEDS: ONDANSETRON 4 MG INJ IV PRN ×2 (10:49→20:05)
[2017-06-23] MEDS: HYDROCODONE/APAP (5/325) TAB PO PRN (10:54)
[2017-06-23] MEDS ORDERED: DOXAZOSIN 2 MG TAB PO SCH (21:00)
--- NOTE | 2017-06-23 21:01 | PN ---
Date/Time of Note Date/Time of Note DATE: 06/23/17 TIME: 21:00 Assessment/Plan VTE Prophylaxis VTE Prophylaxis Intervention: other Lines/Catheters IV [facility]ter Type (from [email or web address] Saline Lock Urinary Cath still in place: No Assessment/Plan Chief Complaint/Hosp Course IMPRESSION: 1. End-stage renal disease. 2. Hypertension. 3. Pulmonary edema. 4. Abnormal liver function tests. 5. History of cholecystectomy. 6. Automatic implantable cardioverter defibrillator device placement. 7. Hyperparathyroidism, hyperphosphatemia, anemia. The patient has history of pulmonary edema. PLAN HD BP MEDS PER CARDIO Problems: Subjective 24 Hr Interval Summary Respiratory: shortness of breath (BETTER) Cardiovascular: no complaints Gastrointestinal: no complaints Exam/Review of Systems Vital Signs Vitals Vital Signs Date Time Temp Pulse Resp B/P Pulse Ox O2 Delivery O2 Flow Rate FiO2 06/23/17 20:00 87 06/23/17 19:48 18 95 21 06/23/17 19:15 98.1 161/90 06/23/17 14:10 Nasal Cannula 2.0 Intake and Output 06/22/17 06/22/17 06/23/17 15:00 23:00 07:00 Intake Total 300 ml 800 ml 300 ml Output Total 3300 ml 0 ml Balance -3000 ml 800 ml 300 ml Exam Neck: supple Respiratory: clear to auscultation Cardiovascular: regular rate and rhythm Gastrointestinal: soft Extremities: No edema Results Result Diagram: 06/21/17 1507 06/23/17 0707 Results 24 hrs Laboratory Tests Test 06/23/17 07:07 Sodium Level 138 Potassium Level 4.0 Chloride Level 98 Carbon Dioxide Level 29 Anion Gap 15 Blood Urea Nitrogen 34 #H Creatinine 8.09 H Glucose Level 74 Calcium Level 9.1 Medications Medications Current Medications Amlodipine Besylate (Norvasc) 5 mg BID PO Last administered on 06/23/17 08:32 ; Admin Dose 5 MG; Start 06/21/17 at 21:00 Aspirin (Aspirin) 81 mg DAILY PO Last administered on 06/23/17 08:31; Admin Dose 81 MG; Start 06/22/17 at 09:00 Atorvastatin Calcium (Lipitor) 20 mg QHS PO Last administered on 06/22/17 23: 06; Admin Dose 20 MG; Start 06/21/17 at 21:00 Bisacodyl (Dulcolax) 5 mg DAILY PRN PO CONSTIPATION; Start 06/21/17 at 20:00 Carvedilol (Coreg) 25 mg BID PO Last administered on 06/23/17 08:33; Admin Dose 25 MG; Start 06/21/17 at 21:00 Cinacalcet (Sensipar) 60 mg DAILY PO Last administered on 06/23/17 08:33; Admin Dose 60 MG; Start 06/22/17 at 09:00 Diphenhydramine HCl (Benadryl) 50 mg Q12 PRN PO ITCHING Last administered on 01:00; Admin Dose 50 MG; Start 06/21/17 at 20:00 Folic Acid (Folic Acid) 1 mg DAILY PO Last administered on 06/23/17 08:31; Admin Dose 1 MG; Start 06/22/17 at 09:00 Hydralazine HCl (Apresoline) 100 mg Q8 PO Last administered on 06/23/17 03:15 ; Admin Dose 100 MG; Start 06/21/17 at 22:00 Acetaminophen/ Hydrocodone Bitart ([place] (5/325)) 1 tab Q6 PRN PO PAIN Last administered on 06/23/17 10:54; Admin Dose 1 TAB; Start 06/21/17 at 20:00 Lanthanum Carbonate (Fosrenol) 500 mg TID PO Last administered on 06/23/17 12 :41; Admin Dose 500 MG; Start 06/21/17 at 21:00 Losartan Potassium (Cozaar) 50 mg BID PO Last administered on 06/23/17 08:32 ; Admin Dose 50 MG; Start 06/21/17 at 21:00 Pantoprazole (Protonix Tab) 40 mg DAILY PO Last administered on 06/23/17 08: 31; Admin Dose 40 MG; Start 06/22/17 at 09:00 Ondansetron HCl (Zofran Inj) 4 mg Q6H PRN IV NAUSEA AND/OR VOMITING Last administered on 06/23/17 20:05; Admin Dose 4 MG; Start 06/21/17 at 20:30 Acetaminophen (Tylenol Tab) 650 mg Q6H PRN PO PAIN LEVEL 1-3 OR FEVER; Start 06/21/17 at 20:30 Acetaminophen (Tylenol Supp) [address] PAIN LEVEL 1-3 OR FEVER; Start 06/21/17 at 20:30 Docusate Sodium (Colace) 100 mg Q12H PRN PO CONSTIPATION; Start 06/21/17 at 20: 30 Magnesium Hydroxide (Milk Of Mag) 30 ml DAILY PRN PO CONSTIPATION; Start at 20:30 Diphenhydramine HCl (Benadryl) 25 mg BID PRN IV ITCHING Last administered on 15:08; Admin Dose 25 MG; Start 06/21/17 at 20:30 Hydralazine HCl (Apresoline) 20 mg Q6H PRN IV ELEVATED BLOOD PRESSURE Last administered on 06/23/17 07:37; Admin Dose 20 MG; Start 06/22/17 at 00:00 Hydromorphone HCl (Dilaudid) 0.5 mg Q4H PRN IV PAIN Last administered on 20:05; Admin Dose 0.5 MG; Start 06/23/17 at 12:00 Doxazosin Mesylate (Cardura) 2 mg HS PO ; Start 06/23/17 at 21:00 REMI SIMPSON MD Jun 23, 2017 21:01
[2017-06-23] MEDS: ATORVASTATIN 20 MG TAB PO SCH (21:02)
[2017-06-24] VITALS (9 sets, daily range): BP systolic 164–191; BP diastolic 77–90; PULSE 76–85; RESP 18–20
[2017-06-24] MEDS: DIPHENHYDRAMINE 50 MG INJ IV PRN ×2 (00:02→07:33)
[2017-06-24] MEDS: hydrALAzine 20 MG INJ IV PRN ×2 (00:09→11:42)
[2017-06-24] MEDS: ALBUTEROL 0.083% (NEB) 2.5 MG/3 ML AMP HHN SCH ×3 (02:12→14:00)
[2017-06-24] MEDS: HYDROmorphONE 1 MG/ML SYG IV PRN (04:42)
--- NOTE | 2017-06-24 08:30 | CONS ---
DATE OF ADMISSION: 06/23/2017 DATE OF CONSULTATION: 06/23/2017 REASON FOR CONSULTATION: Hypertension, uncontrolled, congestive heart failure, cardiomyopathy. REQUESTING PHYSICIAN: Dr. Jensen Simpson. HISTORY OF PRESENT ILLNESS: Ms. 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 Upon arri linnea in the emergency department, temperature 98.2, blood pressure 158/92, pulse 88, respiratory 20, saturating 95%. The patient's labs revealed a white blood cell count of 8, hemoglobin 10.2, platele t count 270. Sodium 138, potassium 4.0, creatinine of 8.0, BUN of 34. INR 0.9. UA positive. Hepa titis serology is all negative. The patient underwent a chest x-ray revealing mild pulmonary edema, cardiomegaly, AICD in place. The patient's electrocardiogram revealed sinus tachycardia 1 or 2 wit h borderline left axis deviation and nonspecific ST-T abnormalities diffusely. The patient was subs equently admitted to the floor and since admit to the floor, has been placed on baseline antihyperte nsives continues to have some elevated systolic blood pressures most recently has been somewhat impr orion 158, but has been as high as 196 earlier in the day. The patient at this time complains of hea dache. Denies chest pain. PAST MEDICAL HISTORY: As above in HPI. MEDICATIONS CURRENTLY IN HOSPITAL: 1. Dilaudid 0.5 q.4h. p.r.n. 2. Aspirin 81 mg daily. 3. Sensipar. 4. Folic acid. 5. Protonix. 6. Renvela. 7. Hydralazine 100 mg. 8. Norvasc 5 mg p.o. b.i.d. 9. Lipitor 20 mg at bedtime. 10. Carvedilol 25 mg p.o. b.i.d. 11. Fosrenol. 12. Cozaar 50 mg b.i.d. 13. Zofran p.r.n. 14. Tylenol p.r.n. ALLERGIES: VALACYCLOVIR. SOCIAL HISTORY: No tobacco, ETOH or illicit drug use. FAMILY HISTORY: No history of sudden cardiac or early CAD. REVIEW OF SYSTEMS: As above in HPI. CONSTITUTIONAL: No fevers, chills. PULMONARY: No shortness of breath. CARDIOVASCULAR: No current chest pain. GASTROINTESTINAL: No vomiting. GENITOURINARY: End-stage renal disease. PSYCHIATRIC: No documented psychiatric history. NEUROLOGIC: No documented history of CVA. PHYSICAL EXAMINATION VITAL SIGNS: Temperature of 98.2, blood pressure 150/90, pulse 88, respiratory 20, saturating 95%. GENERAL: The patient is alert, awake, in no acute distress. NECK: JVP approximately 10 cm of water. CHEST: Decreased breath sounds at bases bilaterally. HEART: Regular rate and rhythm. Normal S1, S2, I/ systolic murmur, nondisplaced PMI. ABDOMEN: Positive bowel sounds, soft. EXTREMITIES: Chronic venous stasis changes, trace edema, 1+ pulses bilaterally, posterior tibial. LABORATORY DATA: As above in HPI, with most recent from today, sodium 138, potassium 4.0, creatinin e 8.0, BUN 34. White count 8.0, hemoglobin 10.2, platelet count 270. UA positive. IMAGING STUDIES: As above in HPI. No further imaging studies for my review at this time. ECG: As above in HPI. No further electrocardiograms for my review at this time. IMPRESSION: 1. Congestive heart failure exacerbation, systolic, acute on chronic by most recent echo. 2. Cardiomyopathy, decreased left ventricular ejection fraction left main approximately 40% by echo with a negative stress for ischemia in 04/2017 An echo being done 05/06/2017. 3. Hypertension, uncontrolled. 4. Dyslipidemia. 5. History of ICD placement. 6. End-stage renal disease on hemodialysis. 7. Anemia. 8. Hyperkalemia, improved. 9. Urinary tract infection. RECOMMENDATIONS: 1. At this time, would maintain the patient on telemetry monitoring to follow rhythm and rate contr ol closely. 2. Would continue the patient's antihypertensives with hydralazine, Norvasc, carvedilol and [place]arta n with probable need to add additional antihypertensives and thus will add additional class, Cardura at night. Follow the patient's blood pressure closely after this. 3. Continue the patient's current statin therapy and adjust it according to a fasting lipid panel t o be checked. 4. Initiate the patient on aspirin prophylaxis against cardiovascular events. 5. Hemodialysis aggressively for volume removal. 6. Continue the patient's bronchodilators for treatment and pain control. Thank you for allowing me to take part in the care of this patient. I will continue to follow very closely with you with further recommendations to be made as the patient progresses through her [facility] clinical course. Dictated By: DEONNA CEE/LUAN Conf#: [id number] DID#: [id number] CC: JENSEN SIMPSON MD;*EndCC*
[2017-06-24] MEDS: SEVELAMER CARBONATE 0.8 GM PKT PO SCH ×2 (09:05→11:43)
[2017-06-24] MEDS: CINACALCET 30 MG TAB PO SCH (09:06)
[2017-06-24] MEDS: PANTOPRAZOLE (EC) 40 MG TAB PO SCH (09:07)
[2017-06-24] MEDS: ASPIRIN 81 MG TAB PO SCH (09:07)
[2017-06-24] MEDS: LANTHANUM 500 MG CHEW PO SCH ×2 (09:07→13:33)
[2017-06-24] MEDS: LOSARTAN 50 MG TAB PO SCH (09:07)
[2017-06-24] MEDS: FOLIC ACID 1 MG TAB PO SCH (09:07)
[2017-06-24] MEDS: AMLODIPINE 5 MG TAB PO SCH (09:08)
[2017-06-24 09:10] LABS: CHOL/HDL RATIO 4.2 RATIO
[2017-06-24 09:22] LABS: CK-MB 0.6 ng/ml (0.0-2.4); TROPONIN-I 0.118 ng/ml (0.00-0.12)
[2017-06-24] MEDS: HYDROmorphONE 0.5 MG/0.5 ML SYG IV PRN ×2 (11:40→15:50)
[2017-06-24] MEDS: ONDANSETRON 4 MG INJ IV PRN (12:05)
--- NOTE | 2017-06-24 13:36 | PDOCDIS ---
Discharge Instructions CONDITION Patient Condition: Stable HOME CARE INSTRUCTIONS: Special Diet: Renal ACTIVITY: Activity Restrictions: Slowly Increase Activity FOLLOW UP/APPOINTMENTS Follow-up Plan see dr simpson [address] smith 1 wk REMI SIMPSON MD Jun 24, 2017 13:36
[2017-06-24] MEDS ORDERED: HYDR-3672 PO (13:39)
[2017-06-24] MEDS ORDERED: DOXA2TAB61 PO (13:39)
[2017-06-24] MEDS ORDERED: PANT40TA4 PO (13:39)
--- NOTE | 2017-06-24 16:48 | PN ---
Date/Time of Note Date/Time of Note DATE: 06/24/17 TIME: 16:47 Assessment/Plan VTE Prophylaxis VTE Prophylaxis Intervention: other Lines/Catheters IV [facility]ter Type (from [facility]): Saline Lock Urinary Cath still in place: No Assessment/Plan Chief Complaint/Hosp Course IMPRESSION: 1. End-stage renal disease. 2. Hypertension. 3. Pulmonary edema.better 4. Abnormal liver function tests. 5. History of cholecystectomy. 6. Automatic implantable cardioverter defibrillator device placement. 7. Hyperparathyroidism, hyperphosphatemia, anemia. The patient has history of pulmonary edema. PLAN HD BP MEDS PER CARDIO home Problems: Subjective 24 Hr Interval Summary Subjective hx not possible: other (refused to stay in hospital,lat bp 150/90) Exam/Review of Systems Vital Signs Vitals Vital Signs Date Time Temp Pulse Resp B/P Pulse Ox O2 Delivery O2 Flow Rate FiO2 06/24/17 14:01 80 20 99 21 06/24/17 11:48 98.2 191/84 06/23/17 14:10 Nasal Cannula 2.0 Intake and Output 06/23/17 06/23/17 06/24/17 15:00 23:00 07:00 Intake Total 1520 ml 250 ml Output Total 7700 ml Balance -6180 ml 250 ml Exam Respiratory: diminished breath sounds Cardiovascular: regular rate and rhythm Gastrointestinal: bowel sounds, soft Extremities: No edema Results Result Diagram: 06/21/17 1507 06/23/17 0707 Results 24 hrs Laboratory Tests Test 06/24/17 07:40 Creatine Kinase 34 Creatine Kinase Index 1.8 Creatinine Kinase MB (Mass) 0.60 Troponin I 0.118 Triglycerides Level 210 H Cholesterol Level 225 H LDL Cholesterol, Calculated 130 HDL Cholesterol 53 Cholesterol/HDL Ratio 4.2 Medications Medications Current Medications Amlodipine Besylate (Norvasc) 5 mg BID PO Last administered on 06/24/17 09:08 ; Admin Dose 5 MG; Start 06/21/17 at 21:00 Aspirin (Aspirin) 81 mg DAILY PO Last administered on 06/24/17 09:07; Admin Dose 81 MG; Start 06/22/17 at 09:00 Atorvastatin Calcium (Lipitor) 20 mg QHS PO Last administered on 06/23/17 21: 02; Admin Dose 20 MG; Start 06/21/17 at 21:00 Bisacodyl (Dulcolax) 5 mg DAILY PRN PO CONSTIPATION; Start 06/21/17 at 20:00 Carvedilol (Coreg) 25 mg BID PO Last administered on 06/24/17 09:08; Admin Dose 25 MG; Start 06/21/17 at 21:00 Cinacalcet (Sensipar) 60 mg DAILY PO Last administered on 06/24/17 09:06; Admin Dose 60 MG; Start 06/22/17 at 09:00 Diphenhydramine HCl (Benadryl) 50 mg Q12 PRN PO ITCHING Last administered on 01:00; Admin Dose 50 MG; Start 06/21/17 at 20:00 Folic Acid (Folic Acid) 1 mg DAILY PO Last administered on 06/24/17 09:07; Admin Dose 1 MG; Start 06/22/17 at 09:00 Hydralazine HCl (Apresoline) 100 mg Q8 PO Last administered on 06/24/17 13:33 ; Admin Dose 100 MG; Start 06/21/17 at 22:00 Acetaminophen/ Hydrocodone Bitart ([place] (5/325)) 1 tab Q6 PRN PO PAIN Last administered on 06/23/17 10:54; Admin Dose 1 TAB; Start 06/21/17 at 20:00 Lanthanum Carbonate (Fosrenol) 500 mg TID PO Last administered on 06/24/17 13 :33; Admin Dose 500 MG; Start 06/21/17 at 21:00 Losartan Potassium (Cozaar) 50 mg BID PO Last administered on 06/24/17 09:07 ; Admin Dose 50 MG; Start 06/21/17 at 21:00 Pantoprazole (Protonix Tab) 40 mg DAILY PO Last administered on 06/24/17 09: 07; Admin Dose 40 MG; Start 06/22/17 at 09:00 Ondansetron HCl (Zofran Inj) 4 mg Q6H PRN IV NAUSEA AND/OR VOMITING Last administered on 06/24/17 12:05; Admin Dose 4 MG; Start 06/21/17 at 20:30 Acetaminophen (Tylenol Tab) 650 mg Q6H PRN PO PAIN LEVEL 1-3 OR FEVER; Start 06/21/17 at 20:30 Acetaminophen (Tylenol Supp) 650 mg Q6H PRN [place] PAIN LEVEL 1-3 OR FEVER; Start 06/21/17 at 20:30 Docusate Sodium (Colace) 100 mg Q12H PRN PO CONSTIPATION; Start 06/21/17 at 20: 30 Magnesium Hydroxide (Milk Of Mag) 30 ml DAILY PRN PO CONSTIPATION; Start at 20:30 Diphenhydramine HCl (Benadryl) 25 mg BID PRN IV ITCHING Last administered on 07:33; Admin Dose 25 MG; Start 06/21/17 at 20:30 Hydralazine HCl (Apresoline) 20 mg Q6H PRN IV ELEVATED BLOOD PRESSURE Last administered on 06/24/17 11:42; Admin Dose 20 MG; Start 06/22/17 at 00:00 Doxazosin Mesylate (Cardura) 2 mg HS PO Last administered on 06/23/17 21:03; Admin Dose 2 MG; Start 06/23/17 at 21:00 Hydromorphone HCl (Dilaudid) 0.5 mg Q4H PRN IV PAIN Last administered on 15:50; Admin Dose 0.5 MG; Start 06/24/17 at 11:30 REMI SIMPSON MD Jun 24, 2017 16:48
--- NOTE | 2017-06-25 16:02 | RADRPT ---
Vent Rate: 82 bpm RR Interval: 0 msec PA Interval: 144 msec QRS Duration: 92 msec QT Interval: 466 msec QTC Interval: 544 msec P-R-T [place]: 54 - -25 - 0 degrees Sinus rhythm with occasional premature ventricular complexes Possible Left atrial enlargement Left ventricular hypertrophy with ST T wave abnormality ST amp; T wave abnormality, consider inferior ischemia ST amp; T wave abnormality, consider anterolateral ischemia Prolonged QT Abnormal ECG Electronically Signed By: Chuy Figueroa [id number]
--- NOTE | 2017-06-29 20:32 | QN ---
Documentation Comment [id number] REMI SIMPSON MD Jun 29, 2017 20:32
== END 2017-06-24 17:40 | disposition home or self-care (01) | DRG 291 ==
LOC: E/R 11:51 → MS4 21:06 → OBSVTOIN 06-23 19:00
PROVIDERS: ADMIT Internal Medicine Nephrology; ATTEND Internal Medicine Nephrology
PROC: 3E1M39Z Irrigation of Peritoneal Cavity using Dialysate, Percutaneous Approach (ICD-10-PCS; principal; 2017-06-23)
DX: I13.2 Hypertensive heart and chronic kidney disease with heart failure and with stage 5 chronic kidney disease, or end stage renal disease (principal); I50.23 Acute on chronic systolic (congestive) heart failure; J81.1 Chronic pulmonary edema; N18.6 End stage renal disease; N39.0 Urinary tract infection, site not specified; D64.9 Anemia, unspecified; I42.9 Cardiomyopathy, unspecified; E87.5 Hyperkalemia; E78.5 Hyperlipidemia, unspecified; E21.3 Hyperparathyroidism, unspecified; R79.89 Other specified abnormal findings of blood chemistry; Z99.2 Dependence on renal dialysis; Z95.0 Presence of cardiac pacemaker
CPT/HCPCS: 36415; 71010; 80048; 80053; 80061; 82550; 82553; 83605; 84484; 85025; 85610; 85730; 87040; 90935; 93005; 94640; 94664; 96374; 96375; G0378; J0360; J1170; J1200; J2270; J2405

== ENCOUNTER 2017-07-01 21:41 | Emergency (ER) | payer MEDICARE, OTHER ==
[~2017-07-01] VITALS: Ht 165.1 cm; Wt 60.5 kg
[~2017-07-01 21:41] MED LIST changes: -DOCU-144 PO; -DOCU100C26 PO; +DOXA2TAB61 PO; -DOXY100T2 PO; -HYDR-3498 PO; -HYDR-3652 PO
[2017-07-01 21:51] VITALS: Ht 165.1 cm; Wt 60.5 kg
--- NOTE | 2017-07-01 22:16 | ERD ---
ER Documentation Chief Complaint Chief Complaint back pain HPI The patient is a 47-year-old female, presenting to the ER because of acute on chronic back pain. She took her pain medication without response therefore secondary ER. She denies fecal/urinary incontinence. She denies fever, chills , neck pain, chest pain, abdominal pain. She complains of nausea and vomiting of mostly mucus. She denies dysuria, diarrhea. She does not smoke nor drink, denies history of illicit IV drug abuse. She very anxious and requesting anxiety medication Past medical history: Hypertension, chronic kidney disease, systemic lupus erythematosus, CAD, dyslipidemia, cardiomyopathy, history of CHF, chronic low back pain. X Past medical history: Cholecystectomy, splenectomy, , left upper cavity AV fistula, pacemaker/AICD ROS All systems reviewed and are negative except as per history of present illness. Medications Home Meds Active Scripts Ondansetron (Ondansetron Odt) 4 Mg Tab.rapdis, 4 MG PO Q6H Y for NAUSEA AND/OR VOMITING, #10 TAB Prov:NEO CAMPBELL MD 07/01/17 Hydroxyzine Hcl* (Atarax*) 2 Mg/Ml Syrup, 25 MG PO Q6H Y for ANXIETY, #10 ML Prov:NEO CAMPBELL MD 07/01/17 Hydrocodone/Acetaminophen (Sesser 5-325 Tablet) 1 Each Tablet, 1 EACH PO Q6, #5 TAB Prov:NEO CAMPBELL MD 07/01/17 Doxazosin Mesylate* (Cardura*) 2 Mg Tablet, 2 MG PO HS for 28 Days, TAB Prov:REMI SIMPSON MD 06/24/17 Hydralazine Hcl* (Apresoline*) 50 Mg Tab, 100 MG PO Q8 for 30 Days, TAB Prov:REMI SIMPSON MD 06/24/17 Pantoprazole* (Pantoprazole*) 40 Mg Tablet.dr, 40 MG PO DAILY for 28 Days, TAB Prov:REMI SIMPSON MD 06/24/17 Hydrocodone/Acetaminophen (Sesser 5-325 Tablet) 1 Each Tablet, 1 EACH PO Q6, #20 TAB Prov:SHAAN ROOT PA-C 06/07/17 Bisacodyl* (Bisacodyl*) 5 Mg Tablet.dr, 5 MG PO DAILY Y for CONSTIPATION for 14 Days Prov:REMI SIMPSON MD 05/27/17 [Ipratropium 0.02% (Neb)] 0.5 MG/2.5 ML NEBU No Conflict Check, 0.5 MG HHN Q6H RESP THERAPY for 10 Days Prov:REMI SIMPSON MD 05/27/17 Albuterol Sulfate* (Albuterol Sulfate* Neb) 0.083%-3 Ml Neb, 2.5 MG HHN Q6H RESP THERAPY for 10 Days Prov:REMI SIMPSON MD 05/27/17 Atorvastatin Calcium* (Atorvastatin Calcium*) 20 Mg Tablet, 20 MG PO QHS for hyper for 30 Days, #30 TAB Prov:TONY SANDOVAL 03/13/17 Nitroglycerin* (Nitrostat*) 0.4 Mg Tab.subl, 1 TAB SL .Q5M UP TO 3 DOSES Y for CHEST PAIN for 30 Days, #60 Prov:TONY SANDOVAL 03/13/17 Losartan Potassium* (Cozaar*) 50 Mg Tablet, 50 MG PO BID for 30 Days, #60 TAB Prov:TONY SANDOVAL 03/13/17 Aspirin (Aspirin) 81 Mg Chew, 81 MG PO DAILY for 30 Days, TAB Prov:TONY SANDOVAL 03/13/17 Carvedilol* (Coreg*) 25 Mg Tab, 25 MG PO BID for 30 Days, TAB Prov:REMI SIMPSON MD 12/26/15 Reported Medications Sevelamer Carbonate* (Renvela*) 800 Mg Tablet, 0.8 GM PO WITH MEALS, TAB 2 TABS TID WITH MEALS 10/07/16 Amlodipine Besylate* (Norvasc*) 5 Mg Tablet, 5 MG PO BID, TAB 10/06/16 Cinacalcet* (Sensipar*) 60 Mg Tablet, 60 MG PO DAILY, TAB 10/06/16 Diphenhydramine Hcl* (Benadryl*) 50 Mg Cap, 50 MG PO Q12 Y for ITCHING, CAP 10/06/16 Folic Acid* (Folic Acid*) 1 Mg Tablet, 1 MG PO DAILY, TAB 10/06/16 Lanthanum Carbonate* (Fosrenol*) 500 Mg Tab.chew, 500 MG PO TID, TAB.CHEW WITH MEALS 01/11/15 Discontinued Scripts Hydralazine Hcl* (Apresoline*) 50 Mg Tab, 100 MG PO Q8 for 28 Days, TAB Prov:REMI SIMPSON MD 05/27/17 Doxycycline* (Vibramycin*) 100 Mg Tab, 100 MG PO BID for 7 Days, TAB Prov:REMI SIMPSON MD 05/27/17 Allergies Allergies: Coded Allergies: valacyclovir (Verified Allergy, Mild, 06/06/17) per pt she has nightmares and hallucinations PMhx/Soc History of Surgery: Yes (CHOLECYSTECTOMY, SPLENECTOMY, , AV FISTULA PLACEMENT, PACEMAKER PL) Anesthesia Reaction: No Hx Neurological Disorder: No Hx Respiratory Disorders: No Hx Cardiac Disorders: Yes (HTN) Hx Psychiatric Problems: No Hx Miscellaneous Medical Probl: Yes (ANEMIA, LUPUS) Hx Alcohol Use: No Hx Substance Use: No Hx Tobacco Use: No Physical Exam Vitals Vital Signs Date Time Temp Pulse Resp B/P Pulse Ox O2 Delivery O2 Flow Rate FiO2 07/01/17 21:51 97.2 90 20 190/102 99 Physical Exam Const: No acute distress. Head: Atraumatic. Eyes: Normal Conjunctiva. ENT: Normal External Ears, Nose and Mouth. Neck: Full range of motion. No meningismus. Resp: Clear to auscultation bilaterally. Cardio: Regular rate and rhythm. Abd: Soft, non distended, normal bowel sounds, non tender. Skin: No petechiae or rashes. Back: No midline or flank tenderness. Ext: No cyanosis, or edema. Neur: Awake and alert. No focal deficit Psych: Normal Mood and Affect. Result Diagram: 07/01/17224207/01/172242 Results 24 hrs Laboratory Tests Test 07/01/17 22:43 White Blood Count 7.310^3/ul Red Blood Count 3.3610^6/ul Hemoglobin 11.2g/dl Hematocrit 35.5% Mean Corpuscular Volume 105.7fl Mean Corpuscular Hemoglobin 33.3pg Mean Corpuscular Hemoglobin Concent 31.5g/dl Red Cell Distribution Width 21.8% Platelet Count 22290^3/UL Mean Platelet Volume 11.6fl Neutrophils % 49.4% Lymphocytes % 23.6% Monocytes % 12.5% Eosinophils % 13.4% Basophils % 0.8% Nucleated Red Blood Cells % 3.4/100WBC Neutrophils # 3.610^3/ul Lymphocytes # 1.710^3/ul Monocytes # 0.910^3/ul Eosinophils # 1.010^3/ul Basophils # 0.110^3/ul Nucleated Red Blood Cells # 0.310^3/ul Sodium Level 140mmol/L Potassium Level 4.5mmol/L Chloride Level 103mmol/L Carbon Dioxide Level 25mmol/L Anion Gap 17 Blood Urea Nitrogen 56mg/dl Creatinine 8.59mg/dl Glucose Level 86mg/dl Calcium Level 11.0mg/dl Total Bilirubin 0.0mg/dl Direct Bilirubin 0.00mg/dl Indirect Bilirubin 0.0mg/dl Aspartate Amino Transf (AST/SGOT) 69IU/L Alanine Aminotransferase (ALT/SGPT) 34IU/L Alkaline Phosphatase 327IU/L Total Protein 8.4g/dl Albumin 3.6g/dl Globulin 4.80g/dl Albumin/Globulin Ratio 0.75 Current Medications Medications (Trade) Dose Ordered Sig/Halie Route PRN Reason Start Time Stop Time Status Last Admin Dose Admin Morphine Sulfate (morphine) 2 mg ONCE ONCE IV 07/01/17 22:30 07/01/17 22:33 DC 07/01/17 22:47 Ondansetron HCl (Zofran Inj) 4 mg ONCE STAT IV 07/01/17 22:30 07/01/17 22:33 DC 07/01/17 22:47 Metoclopramide HCl (Reglan) 10 mg ONCE ONCE IV 07/01/17 23:30 07/01/17 23:31 DC 07/01/17 23:24 Procedures/[place] [id number] Radiology Main Line: [phone] DIAGNOSTIC IMAGING REPORT Patient: ANYA GO : 1970 Age: 47 Sex: F MR #: [id number] DOS: 07/01/17 0000 Ordering MD: NEO CAMPBELL MD Location: E/R Room/Bed: AMENDMENT: 07/01/2017 11:39:40 PM Chace Jacobo MD CLINICAL INDICATION: 47-year-old female with shortness of breath and back pain. PROCEDURE: CHEST - 1 VIEW CLINICAL INDICATION: 37-year-old female with shortness of breath and back pain. TECHNIQUE: A single frontal AP semi-erect portable view of the chest was performed. The images were reviewed on a PACS workstation. COMPARISON: Chest x-ray May 26, 2017. FINDINGS: There is a right-sided AICD device. The cardiomediastinal silhouette is mildly enlarged. There is mild pulmonary vascular congestion/volume overload. There is a shallow inspiration. There is mild bibasilar subsegmental atelectasis. There is no evidence for focal consolidation. There is no evidence for pneumothorax. Surgical clips are seen within the left upper extremity soft tissue. Surgical clips are seen within the right upper quadrant from prior cholecystectomy. The osseous structures are intact. IMPRESSION: 1. Right-sided AICD device. 2. Cardiomegaly. 3. Mild pulmonary vascular congestion/volume overload. 4. Shallow inspiration. 5. Mild bibasilar subsegmental atelectasis. 6. Left upper extremity soft tissue surgical clips. 7. Status post cholecystectomy. .Chace Jacobo MD, MD Date Time Electronically viewed and signed by .Chace Jacobo MD, on 07/01/2017 23:39 .M/ CC: NEO CAMPBELL MD MEDICAL MAKING DECISION: The patient is a 47-year-old female, presenting with acute on chronic low back pain, acute anxiety. She was treated with morphine 4 mg IV for pain and Zofran ODT IV for nausea and Reglan 10 mg IV for nausea with good response. On reevaluation, she felt better, repeat abdominal exam was unremarkable The differential diagnoses considered include but are not limited to caudal equina syndrome, spinal abscess, DJD, diskitis, lumbar radiculopathy. Departure Diagnosis: Primary Impression: Back pain Additional Impressions: Anxiety Hypercalcemia Abnormal LFTs Anemia Condition: Good Comments She was discharged with 5 tablets of Sesser 5 mg Zofran ODT, Atarax I discussed the findings with the patient. I advised the patient to follow-up with the primary physician in about 1-2 days, sooner if needed and return if any concern. NEO CAMPBELL MD Jul 01, 2017 22:16
[2017-07-01] MEDS ORDERED: ONDANSETRON 4 MG INJ IV STA (22:30)
[2017-07-01] MEDS ORDERED: morphine 2 MG INJ IV ONE (22:30)
[2017-07-01 23:13] LABS: BASOPHIL # 0.1 10^3/ul (0.0-0.1); BASOPHILS % 0.8 % (0.0-2.0); EOSINOPHILS % 13.4 % (0.0-7.0); HEMATOCRIT 35.5 % (37.0-47.0); HEMOGLOBIN 11.2 g/dl (12.0-16.0); LYMPHOCYTES # 1.7 10^3/ul (0.8-2.9); LYMPHOCYTES % 23.6 % (15.0-51.0); MEAN CORPUSCULAR HEMOGLOBIN 33.3 pg (29.0-33.0); MEAN CORPUSCULAR HGB CONC 31.5 g/dl (32.0-37.0); MEAN CORPUSCULAR VOLUME 105.7 fl (82.0-101.0); MEAN PLATELET VOLUME 11.6 fl (7.4-10.4); MONOCYTE # 0.9 10^3/ul (0.3-0.9); MONOCYTES % 12.5 % (0.0-11.0); NEUTROPHIL # 3.6 10^3/ul (1.6-7.5); NEUTROPHILS % 49.4 % (39.0-77.0); NUCLEATED RED BLOOD CELLS # 0.3 10^3/ul (0.0-0.0); NUCLEATED RED BLOOD CELLS% 3.4 /100WBC (0.0-0.0); PLATELET COUNT 248 10^3/UL (140-415); RED BLOOD COUNT 3.36 10^6/ul (4.20-5.40); RED CELL DISTRIBUTION WIDTH 21.8 % (11.5-14.5); WHITE BLOOD COUNT 7.3 10^3/ul (4.8-10.8)
[2017-07-01 23:20] LABS: ALBUMIN 3.6 g/dl (3.3-4.9); ALBUMIN/GLOBULIN RATIO 0.75; CREATININE 8.59 mg/dl (0.44-1.00); POTASSIUM 4.5 mmol/L (3.5-5.1); TOTAL PROTEIN 8.4 g/dl (6.1-8.1)
[2017-07-01] MEDS ORDERED: METOCLOPRAMIDE 10 MG INJ IV ONE (23:30)
--- NOTE | 2017-07-01 23:38 | RADRPT ---
AMENDMENT: 07/01/2017 11:39:40 PM Chace Jacobo MD CLINICAL INDICATION: 47-year-old female with shortness of breath and back pain. PROCEDURE: CHEST - 1 VIEW CLINICAL INDICATION: 37-year-old female with shortness of breath and back pain. TECHNIQUE: A single frontal AP semi-erect portable view of the chest was performed. The images we re reviewed on a PACS workstation. COMPARISON: Chest x-ray May 26, 2017. FINDINGS: There is a right-sided AICD device. The cardiomediastinal silhouette is mildly enlarged. There is mi ld pulmonary vascular congestion/volume overload. There is a shallow inspiration. There is mild biba silar subsegmental atelectasis. There is no evidence for focal consolidation. There is no evidence for pneumothorax. Surgical clips are seen within the left upper extremity soft tissue. Surgical clip s are seen within the right upper quadrant from prior cholecystectomy. The osseous structures are in tact. IMPRESSION: 1. Right-sided AICD device. 2. Cardiomegaly. 3. Mild pulmonary vascular congestion/volume overload. 4. Shallow inspiration. 5. Mild bibasilar subsegmental atelectasis. 6. Left upper extremity soft tissue surgical clips. 7. Status post cholecystectomy. .Chace Jacobo MD, MD Date Time Electronically viewed and signed by .Chace Jacobo MD, on 07/01/2017 23:39 .M/
[2017-07-01] MEDS ORDERED: ONDA4TAB14 PO (23:53)
[2017-07-01] MEDS ORDERED: UDATA PO (23:53)
[2017-07-01] MEDS ORDERED: HYDR-906 PO (23:53)
== END 2017-07-02 00:13 | disposition home or self-care (01) ==
LOC: E/R 21:41
DX: M54.9 Dorsalgia, unspecified (principal); F41.9 Anxiety disorder, unspecified; E83.52 Hypercalcemia; R84.5 Abnormal microbiological findings in specimens from respiratory organs and thorax; D64.9 Anemia, unspecified; I12.0 Hypertensive chronic kidney disease with stage 5 chronic kidney disease or end stage renal disease; N18.5 Chronic kidney disease, stage 5; I25.10 Atherosclerotic heart disease of native coronary artery without angina pectoris; I50.9 Heart failure, unspecified; Z95.0 Presence of cardiac pacemaker; Z79.82 Long term (current) use of aspirin
CPT/HCPCS: 36415; 71010; 80053; 85025; 96374; 96375; 99284; J2270; J2405; J2765

== ENCOUNTER 2017-07-20 10:10 | Inpatient (IN) | payer MEDICARE, OTHER ==
[2017-07-20] VITALS (11 sets, daily range): BP systolic 137–226; BP diastolic 75–115; PULSE 95–117; RESP 16–17; Ht 162.6 cm; Wt 60.1 kg
[~2017-07-20] VITALS: Ht 162.6 cm; Wt 60.1 kg
[~2017-07-20 10:10] MED LIST changes: +ONDA4TAB14 PO; +UDATA PO
--- NOTE | 2017-07-20 11:32 | RADRPT ---
PROCEDURE: XR Chest. CLINICAL INDICATION: Chest pain TECHNIQUE: Single portable view of the chest was obtained COMPARISON: 05/26/17 FINDINGS: The heart is enlarged. There is elevation of the right diaphragm. There is a right-sided AICD in place. The lungs are clear. There is no pleural effusion or pneumothorax. RPTAT: AA IMPRESSION: Mild Cardiomegaly. .Souleymane Schwartz MD, MD Date Time Electronically viewed and signed by .Souleymane Schwartz MD, on 07/20/2017 11:32 .S/
[2017-07-20 11:58] LABS: BASOPHIL # 0.1 10^3/ul (0.0-0.1); BASOPHILS % 1.4 % (0.0-2.0); EOSINOPHILS # 0.4 10^3/ul (0.0-0.5); EOSINOPHILS % 7.2 % (0.0-7.0); HEMATOCRIT 35.8 % (37.0-47.0); HEMOGLOBIN 11.5 g/dl (12.0-16.0); LYMPHOCYTES # 1.3 10^3/ul (0.8-2.9); LYMPHOCYTES % 23.1 % (15.0-51.0); MEAN CORPUSCULAR HEMOGLOBIN 32.5 pg (29.0-33.0); MEAN CORPUSCULAR HGB CONC 32.1 g/dl (32.0-37.0); MEAN CORPUSCULAR VOLUME 101.1 fl (82.0-101.0); MEAN PLATELET VOLUME 12.5 fl (7.4-10.4); MONOCYTE # 0.5 10^3/ul (0.3-0.9); MONOCYTES % 8.8 % (0.0-11.0); NEUTROPHIL # 3.3 10^3/ul (1.6-7.5); NEUTROPHILS % 58.8 % (39.0-77.0); PLATELET COUNT 164 10^3/UL (140-415); RED BLOOD COUNT 3.54 10^6/ul (4.20-5.40); WHITE BLOOD COUNT 5.7 10^3/ul (4.8-10.8)
[2017-07-20] MEDS ORDERED: morphine 4 MG/ML VIAL IV STA (12:16)
[2017-07-20 12:27] LABS: CALCIUM 10.5 mg/dl (8.4-10.2); CREATININE 8.49 mg/dl (0.44-1.00); POTASSIUM 5.7 mmol/L (3.5-5.1)
[2017-07-20 12:35] LABS: TROPONIN-I 0.099 ng/ml (0.00-0.12)
[2017-07-20] MEDS ORDERED: hydrALAzine 20 MG INJ IV ONE (13:00)
[2017-07-20] MEDS ORDERED: ACETAMINOPHEN 325 MG TAB PO PRN (13:00)
[2017-07-20] MEDS ORDERED: ONDANSETRON 4 MG INJ IV PRN (13:00)
--- NOTE | 2017-07-20 13:58 | ERD ---
ER Documentation Chief Complaint Chief Complaint high blood pressure problems x 1 week; back problem HPI 49-year-old female with a history of ESRD, hypertension, on hemodialysis Wednesday presenting to the ER with hypertension for 1 week. She states her blood pressure has been out of control for the past week. Her doctor, Dr. Simpson is aware of this and sent her into the ER for evaluation. Her last hemodialysis was yesterday. She has also been having worsening chest pains and shortness of breath over the past week that is constant, worse with exertion. She denies any nausea, vomiting, diaphoresis, fever, or chills. She also complains of back pain that is intermittent, secondary to history of shingles. She has been told it is due to postherpetic neuralgia. He states she is taking her medications but she cannot name her medications. ROS All systems reviewed and are negative except as per history of present illness. Medications Home Meds Active Scripts Ondansetron (Ondansetron Odt) 4 Mg Tab.rapdis, 4 MG PO Q6H Y for NAUSEA AND/OR VOMITING, #10 TAB Prov:NEO CAMPBELL MD 07/01/17 Hydroxyzine Hcl* (Atarax*) 2 Mg/Ml Syrup, 25 MG PO Q6H Y for ANXIETY, #10 ML Prov:NEO CAMPBELL MD 07/01/17 Doxazosin Mesylate* (Cardura*) 2 Mg Tablet, 2 MG PO HS for 28 Days, TAB Prov:REMI SIMPSON MD 06/24/17 Hydralazine Hcl* (Apresoline*) 50 Mg Tab, 100 MG PO Q8 for 30 Days, TAB Prov:REMI SIMPSON MD 06/24/17 Pantoprazole* (Pantoprazole*) 40 Mg Tablet., 40 MG PO DAILY for 28 Days, TAB Prov:REMI SIMPSON MD 06/24/17 Hydrocodone/Acetaminophen (Cobb 5-325 Tablet) 1 Each Tablet, 1 EACH PO Q6, #20 TAB Prov:SHAAN ROOT PA-C 06/07/17 Bisacodyl* (Bisacodyl*) 5 Mg Tablet.dr, 5 MG PO DAILY Y for CONSTIPATION for 14 Days Prov:REMI SIMPSON MD 05/27/17 [Ipratropium 0.02% (Neb)] 0.5 MG/2.5 ML NEBU No Conflict Check, 0.5 MG HHN Q6H RESP THERAPY for 10 Days Prov:REMI SIMPSON MD 05/27/17 Albuterol Sulfate* (Albuterol Sulfate* Neb) 0.083%-3 Ml Neb, 2.5 MG HHN Q6H RESP THERAPY for 10 Days Prov:REMI SIMPSON MD 05/27/17 Atorvastatin Calcium* (Atorvastatin Calcium*) 20 Mg Tablet, 20 MG PO QHS for hyper for 30 Days, #30 TAB Prov:TONY SANDOVAL 03/13/17 Nitroglycerin* (Nitrostat*) 0.4 Mg Tab.subl, 1 TAB SL .Q5M UP TO 3 DOSES Y for CHEST PAIN for 30 Days, #60 Prov:TONY SANDOVAL 03/13/17 Losartan Potassium* (Cozaar*) 50 Mg Tablet, 50 MG PO BID for 30 Days, #60 TAB Prov:TONY SANDOVAL 03/13/17 Aspirin (Aspirin) 81 Mg Chew, 81 MG PO DAILY for 30 Days, TAB Prov:TONY SANDOVAL 03/13/17 Carvedilol* (Coreg*) 25 Mg Tab, 25 MG PO BID for 30 Days, TAB Prov:REMI SIMPSON MD 12/26/15 Reported Medications Sevelamer Carbonate* (Renvela*) 800 Mg Tablet, 0.8 GM PO WITH MEALS, TAB 2 TABS TID WITH MEALS 10/07/16 Amlodipine Besylate* (Norvasc*) 5 Mg Tablet, 5 MG PO BID, TAB 10/06/16 Cinacalcet* (Sensipar*) 60 Mg Tablet, 60 MG PO DAILY, TAB 10/06/16 Diphenhydramine Hcl* (Benadryl*) 50 Mg Cap, 50 MG PO Q12 Y for ITCHING, CAP 10/06/16 Folic Acid* (Folic Acid*) 1 Mg Tablet, 1 MG PO DAILY, TAB 10/06/16 Lanthanum Carbonate* (Fosrenol*) 500 Mg Tab.chew, 500 MG PO TID, TAB.CHEW WITH MEALS 01/11/15 Discontinued Scripts Hydrocodone/Acetaminophen (Cobb 5-325 Tablet) 1 Each Tablet, 1 EACH PO Q6, #5 TAB Prov:NEO CAMPBELL MD 07/01/17 Allergies Allergies: Coded Allergies: valacyclovir (Verified Allergy, Mild, 07/20/17) per pt she has nightmares and hallucinations PMhx/Soc History of Surgery: Yes (CHOLECYSTECTOMY, SPLENECTOMY, , AV FISTULA PLACEMENT, PACEMAKER PL) Anesthesia Reaction: No Hx Neurological Disorder: No Hx Respiratory Disorders: No Hx Cardiac Disorders: Yes (HTN) Hx Psychiatric Problems: No Hx Miscellaneous Medical Probl: Yes (ANEMIA, LUPUS, DIALYSIS) Hx Alcohol Use: No Hx Substance Use: No Hx Tobacco Use: No Smoking Status: Never smoker FmHx Family History: No coronary disease Physical Exam Vitals Vital Signs Date Time Temp Pulse Resp B/P Pulse Ox O2 Delivery O2 Flow Rate FiO2 07/20/17 12:28 88 16 197/97 99 Room Air 07/20/17 10:20 98.7 95 18 209/106 99 Physical Exam Const: Chronically ill-appearing, no apparent distress, nontoxic Head: Atraumatic Eyes: Normal Conjunctiva ENT: Normal External Ears, Nose and Mouth. Neck: Full range of motion..~ No meningismus. Resp: Clear to auscultation bilaterally Cardio: Regular rate and rhythm, no murmurs Abd: Soft, non tender, non distended. Normal bowel sounds Skin: No petechiae or rashes Back: No midline or flank tenderness Ext: No cyanosis, or edema. Bilateral upper extremities with AV fistulas. Neur: Awake and alert, oriented 3, cranial nerves intact, strength and sensations intact in all 4 extremities Psych: Normal Mood and Affect Result Diagram: 07/20/17 1136 07/20/17 1136 Results 24 hrs Laboratory Tests Test 07/20/17 11:36 White Blood Count 5.710^3/ul Red Blood Count 3.5410^6/ul Hemoglobin 11.5g/dl Hematocrit 35.8% Mean Corpuscular Volume 101.1fl Mean Corpuscular Hemoglobin 32.5pg Mean Corpuscular Hemoglobin Concent 32.1g/dl Red Cell Distribution Width 19.0% Platelet Count 37654^3/UL Mean Platelet Volume 12.5fl Neutrophils % 58.8% Lymphocytes % 23.1% Monocytes % 8.8% Eosinophils % 7.2% Basophils % 1.4% Nucleated Red Blood Cells % 0.0/100WBC Neutrophils # 3.310^3/ul Lymphocytes # 1.310^3/ul Monocytes # 0.510^3/ul Eosinophils # 0.410^3/ul Basophils # 0.110^3/ul Nucleated Red Blood Cells # 0.010^3/ul Sodium Level 140mmol/L Potassium Level 5.7mmol/L Chloride Level 100mmol/L Carbon Dioxide Level 24mmol/L Anion Gap 22 Blood Urea Nitrogen 69mg/dl Creatinine 8.49mg/dl Glucose Level 91mg/dl Calcium Level 10.5mg/dl Troponin I 0.099ng/ml Current Medications Medications (Trade) Dose Ordered Sig/Halie Route PRN Reason Start Time Stop Time Status Last Admin Dose Admin Morphine Sulfate (morphine) 4 mg ONCE STAT IV 07/20/17 12:16 07/20/17 12:17 DC 07/20/17 12:24 Hydralazine HCl (Apresoline) 10 mg ONCE ONCE IV 07/20/17 13:00 07/20/17 13:01 DC 07/20/17 13:32 Ondansetron HCl (Zofran Inj) 4 mg ER BRIDGE PRN IV NAUSEA AND/OR VOMITING 07/20/17 13:00 07/21/17 12:59 Acetaminophen (Tylenol Tab) 650 mg ER BRIDGE PRN PO MILD PAIN/FEVER 07/20/17 13:00 07/21/17 12:59 Procedures/MDM Labs CBC shows mild anemia BMP shows hyperkalemia, elevated BUN and creatinine, consistent with CKD Troponin is within normal limits Imaging Chest x-ray shows mild cardiomegaly, no acute abnormalities EKG: Rate/Rhythm: Normal Sinus Rhythm QRS, ST, T-waves: Left axis deviation, LVH with repolarization abnormality, no evident changes consistent w/ acute ischemia Impression: No evidence of ischemia or arrhythmia [facility] Patient is presenting with complaints of uncontrolled hypertension with back pain and chest pain. Vitals were notable for elevated blood pressure, but I have a low suspicion for hypertensive emergency. EKG shows abnormalities but no definite ischemia. Troponin is within normal limits. Her labs are notable for hyperkalemia. I discussed this with Dr. Simpson, her primary care doctor and [employer] consultant, who agreed to dialyze her today. He would like her admitted for observation and blood pressure control. Departure Diagnosis: Primary Impression: Hyperkalemia Additional Impressions: Malignant hypertension ESRD (end stage renal disease) on dialysis Condition: Critical INDIO ESPARZA MD Jul 20, 2017 13:58
[2017-07-20] MEDS ORDERED: FAMOTIDINE 20 MG TAB PO ONE (14:00)
[2017-07-20] MEDS ORDERED: FAMOTIDINE 20 MG INJ IV ONE (14:30)
[2017-07-20] MEDS: hydrALAzine 20 MG INJ IV PRN (15:55)
[2017-07-20] MEDS ORDERED: DIPHENHYDRAMINE 25 MG CAP PO PRN (16:00)
[2017-07-20] MEDS ORDERED: DIPHENHYDRAMINE 50 MG INJ ONE (17:17)
[2017-07-20] MEDS ORDERED: HYDROmorphONE 1 MG/ML SYG ONE (17:28)
[2017-07-20] MEDS: HYDROmorphONE 0.5 MG/0.5 ML SYG IV PRN (17:33)
[2017-07-20 17:57] LABS: CK-MB 1.32 ng/ml (0.0-2.4); TROPONIN-I 0.092 ng/ml (0.00-0.12)
[2017-07-20] MEDS ORDERED: BISACODYL (EC) 5 MG TAB PO PRN (18:00)
[2017-07-20] MEDS ORDERED: NITROGLYCERIN (SL) 0.4 MG TAB SL PRN (18:00)
[2017-07-20] MEDS ORDERED: DIPHENHYDRAMINE 50 MG CAP PO PRN (18:00)
[2017-07-20] MEDS ORDERED: HYDROCODONE/APAP (5/325) TAB PO PRN (18:00)
--- NOTE | 2017-07-20 18:18 | QN ---
Documentation Comment [id number] REMI SIMPSON MD Jul 20, 2017 18:18
[2017-07-20] MEDS: DIPHENHYDRAMINE 50 MG INJ IV PRN (18:50)
[2017-07-20] MEDS ORDERED: NON-FORMULARY/PATIENT OWN MED ([Ipratropium 0.02% (Neb)] (Atrovent 0.02% (Neb)) 0.5 MG) HHN SCH (20:00)
[2017-07-20] MEDS: SEVELAMER CARBONATE 0.8 GM PKT PO SCH (20:23)
[2017-07-20] MEDS: ALBUTEROL/IPRATROPIUM (NEB) 3 ML AMP HHN SCH (20:40)
[2017-07-20] MEDS: ATORVASTATIN 20 MG TAB PO SCH (21:54)
[2017-07-20] MEDS: LANTHANUM 500 MG CHEW PO SCH (21:56)
[2017-07-20] MEDS ORDERED: HYDROCODONE/HOMATROPINE 5ML CUP PO PRN (22:00)
[2017-07-20] MEDS: LOSARTAN 50 MG TAB PO SCH (22:00)
[2017-07-20] MEDS: DOXAZOSIN 2 MG TAB PO SCH (22:00)
[2017-07-20] MEDS: AMLODIPINE 5 MG TAB PO SCH (22:00)
[2017-07-20 23:17] LABS: CK-MB 1.28 ng/ml (0.0-2.4); TROPONIN-I 0.126 ng/ml (0.00-0.12)
[2017-07-21] VITALS (18 sets, daily range): BP systolic 105–150; BP diastolic 58–81; PULSE 74–90; RESP 16–21
[2017-07-21] MEDS: DIPHENHYDRAMINE 50 MG INJ IV PRN ×4 (01:12→18:41)
--- NOTE | 2017-07-21 01:23 | HP ---
DATE OF ADMISSION: 07/20/2017 HISTORY OF PRESENT ILLNESS: A 47-year-old female with history of ESRD, history of hypertension, CAD, history of cardiomyopathy. The patient's other history includes history of anemia, AICD device placement, congestive heart failure, hyperkalemia, history of UTI, history of cholecystectomy, history of cardiomyopathy, history of noncompliance, history of coronary angiogram done at [facility]. No intervention. The patient has been having uncontrolled high blood pressure and presented to the ER, noted to have uncontrolled hypertension with hyperkalemia. The patient will be getting Kayexalate and hemodialysis and blood pressure control. PAST MEDICAL HISTORY: ESRD, hypertension, history of connective tissue disorder , history of AICD device placement, CHF, pneumonia, history of cholecystitis, cholecystectomy, history of anemia, history of blood transfusion, history of chronic pain, history of anxiety. The patient has a history of herpes zoster. ALLERGY HISTORY: VALACYCLOVIR. SOCIAL HISTORY: Negative. FAMILY HISTORY: Negative. MEDICATION HISTORY: Patient is on: 1. Albuterol. 2. Amlodipine. 3. Aspirin. 4. Lipitor. 5. Bisacodyl. 6. Coreg. 7. Sensipar. 8. Diphenhydramine. 9. Cardura. 10. Folic acid. 11. Hydroxyzine. 12. Hydrocodone. 13. ppi 14. Losartan. 15. Nitroglycerin. 16. Zofran. 17. Protonix. 18. Renvela. REVIEW OF SYSTEMS: HEENT: Unremarkable. RESPIRATORY: Shortness of breath. CARDIOVASCULAR: On and off body aches, chest pain, abdominal pain. EXTREMITIES: Unremarkable. CENTRAL NERVOUS SYSTEM: Unremarkable. PHYSICAL EXAMINATION: GENERAL: The patient is an anxious-looking female, awake, alert, responsive. VITAL SIGNS: Pulse 107, blood pressure 226/110. HEAD: Atraumatic, normocephalic. Pupils are equal, reactive to light. No pale conjunctivae or icterus. NECK: Supple. LUNGS: Rhonchi. CARDIOVASCULAR: S1, S2 normal. Systolic murmur noted. ABDOMEN: Soft, nontender. Bowel sounds positive. No palpable mass. Mild midepigastric pain noted. EXTREMITIES: No cyanosis, clubbing, or edema. CENTRAL NERVOUS SYSTEM: The patient is awake, alert, no focal deficit. LABORATORY DATA: Sodium 140, potassium 4.7. EKG shows T-wave inversion in I and aVL; nonspecific ST-T changes. IMPRESSION: 1. Uncontrolled hypertension. 2. Hyperkalemia. 3. End-stage renal disease. 4. Hypertension. 5. History of cardiomyopathy. 6. History of atherosclerotic heart disease. 7. History of dyslipidemia. 8. History of congestive heart failure. 9. History of herpes zoster. 10. History of anxiety. 11. History of depression. PLAN: The patient will have hemodialysis, Kayexalate p.r.n. Orders were done. Dictated By: REMI SIMPSON MD BS/NTS Conf#: [id number] DID#: [id number]
[2017-07-21] MEDS: ZOLPIDEM 5 MG TAB PO PRN ×2 (01:26→22:21)
[2017-07-21] MEDS: ALBUTEROL/IPRATROPIUM (NEB) 3 ML AMP HHN SCH ×4 (01:32→20:26)
[2017-07-21] MEDS: HYDROmorphONE 0.5 MG/0.5 ML SYG IV PRN ×3 (06:02→17:36)
[2017-07-21] MEDS: AMLODIPINE 5 MG TAB PO SCH ×2 (09:00→21:51)
[2017-07-21] MEDS: LOSARTAN 50 MG TAB PO SCH ×2 (09:00→21:51)
[2017-07-21 09:02] LABS: ALBUMIN 4.1 g/dl (3.3-4.9); ALBUMIN/GLOBULIN RATIO 0.8; BILIRUBIN,INDIRECT 0.2 mg/dl (0-1.1); BILIRUBIN,TOTAL 0.2 mg/dl (0.2-1.3); CALCIUM 9.9 mg/dl (8.4-10.2); CREATININE 3.84 mg/dl (0.44-1.00); POTASSIUM 3.9 mmol/L (3.5-5.1); TOTAL PROTEIN 9.2 g/dl (6.1-8.1)
[2017-07-21] MEDS: FOLIC ACID 1 MG TAB PO SCH (09:39)
[2017-07-21] MEDS: CINACALCET 30 MG TAB PO SCH (09:39)
[2017-07-21] MEDS: LANTHANUM 500 MG CHEW PO SCH ×3 (09:39→21:48)
[2017-07-21] MEDS: ASPIRIN 81 MG TAB PO SCH (09:39)
[2017-07-21] MEDS: PANTOPRAZOLE (EC) 40 MG TAB PO SCH (09:39)
[2017-07-21] MEDS: SEVELAMER CARBONATE 0.8 GM PKT PO SCH ×3 (09:40→17:31)
[2017-07-21] MEDS ORDERED: hydrALAzine 20 MG INJ IV PRN (14:00)
--- NOTE | 2017-07-21 14:53 | CONS ---
DATE OF ADMISSION: 07/20/2017 DATE OF CONSULTATION: 07/21/2017 CARDIOLOGY CONSULTATION REASON FOR CONSULTATION: Hypertension. REQUESTING PHYSICIAN: Dr. Jensen Simpson HISTORY OF PRESENT ILLNESS: Ms. Dang is a 47-year-old female with a history of end-stage renal dis ease on hemodialysis, hypertension, coronary artery disease, cardiomyopathy status post AICD, who pr esented with uncontrolled systolic blood pressures greater than 200. Initially upon arrival, temper ature 98.5, blood pressure 215/115, pulse 117, respiratory rate 16, saturating 94%. The patient's l abs revealed a white count 5.7, hemoglobin 11.5, platelet count of 164. Sodium 140, potassium 5.7, creatinine 8.49, BUN of 69. Troponin negative. The patient underwent a chest x-ray revealing mild cardiomegaly, clear lungs. The patient's electrocardiogram revealed normal sinus rhythm, rate 90 wi th left ventricular hypertrophy with voltage criteria and lateral T-wave inversion. Patient subsequ ently has been admitted to the floor and since admit to the floor, has been placed on baseline antih ypertensives with hydralazine 100 mg q.8h., Norvasc 5 mg b.i.d., Carvedilol 25 mg p.o. b.i.d., Cardu ra 2 mg at bedtime, losartan 50 mg p.o. b.i.d. Most recent blood pressure 140s. The patient has chavarria d troponins trended, most recently becoming mildly positive PAST MEDICAL HISTORY: As above in HPI. MEDICATIONS CURRENTLY IN HOSPITAL: 1. Aspirin 81 mg daily. 2. Sensipar 60 mg daily. 3. Folic acid 1 mg daily. 4. Protonix 40 mg. 5. Ambien 5 mg q.h.s. 6. Hydralazine 100 mg q.8h. 7. Hydrocodone. 8. Norvasc 5 mg p.o. b.i.d. 9. Lipitor 20 mg at bedtime. 10. Carvedilol 25 mg p.o. b.i.d. 11. Cardura 2 mg q.h.s.. 12. Phosphoenol. 13. Losartan 50 mg b.i.d. 14. DuoNeb. 15. Benadryl. 16. [place]. 17. Zofran. ALLERGIES: Valacyclovir. SOCIAL HISTORY: No tobacco, ETOH or illicit drug use. FAMILY HISTORY: No history of sudden cardiac or early CAD. REVIEW OF SYSTEMS: As above in HPI. CONSTITUTIONAL: No fevers, chills. PULMONARY: Shortness of breath. CARDIOVASCULAR: Congestive heart failure, positive troponin. GASTROINTESTINAL: No vomiting. GENITOURINARY: No hematuria. MUSCULOSKELETAL: Degenerative joint disease. PSYCHIATRIC: No documented psychiatric history. NEUROLOGIC: No documented history of CVA. ENDOCRINE: No documented history of diabetes mellitus. PHYSICAL EXAMINATION: VITAL SIGNS: Temperature of 98, blood pressure most recently 140/77, pulse 87, respirations 16, sat urating 96%. GENERAL: The patient is alert, awake, in no acute distress. NECK: JVP approximately 9 cm of water. CHEST: Fair air movement throughout with decreased breath sounds at bases bilaterally. HEART: Regular rate and rhythm. Normal S1, S2. Nondisplaced PMI. ABDOMEN: Positive bowel sounds, soft. EXTREMITIES: Trace edema, 1+ pulses bilaterally posterior tibial. LABORATORIES: As above in HPI, with most recent from today, sodium 140, potassium 3.9, creatinine o f 3.84, BUN of 23, AST 67, ALT 63. Troponin 0.126 with a negative CK-MB. IMAGING STUDIES: As above in HPI. No further imaging studies for my review at this time. ECG: As above in HPI. No further electrocardiograms for my review at this time. IMPRESSION: 1. Positive troponin, significance in the setting of renal failure and known cardiomyopathy, likely a marker of chronic cardiomyopathy in the setting of decompensated congestive heart failure. 2. Congestive heart failure, systolic, acute on chronic. 3. Hypertension, uncontrolled. 4. End-stage renal disease on hemodialysis. 5. Hyperkalemia, now improved. 6. Anemia. 7. Dyslipidemia. RECOMMENDATIONS: 1. At this time, would maintain the patient on telemetry monitoring to follow rhythm and rate contr ol closely. 2. Continue to trend the patient's cardiac enzymes, assess for any significant ongoing damage and t hus troponins along with CK, CK-MB q.6h. x2. 3. Continue the patient's aspirin at this time for prophylaxis against further cardiovascular event s. 4. Continue the patient's baseline antihypertensives with Carvedilol, Cardura, losartan and Norvasc with possible need to change Norvasc to Procardia for increased efficacy, following blood pressure closely. 5. Hemodialysis for volume removal. 6. Continue the patient's current statin therapy and adjust it according to a fasting lipid panel t o be checked. 7. The patient is status post 2D echo 04/2017 revealing ejection fraction of 40%. Thank you for allowing me to take part in the care of this patient. I will continue to follow along very closely with you with further recommendations to be made as the patient progresses through his inpatient hospital clinical course. Dictated By: DEONNA CEE/LUAN Conf#: [id number] DID#: [id number] CC: JENSEN SIMPSON MD;*EndCC*
[2017-07-21] MEDS: ONDANSETRON (ODT) 4 MG TAB ODT PRN (16:22)
--- NOTE | 2017-07-21 19:16 | PN ---
Date/Time of Note Date/Time of Note DATE: 07/21/17 TIME: 19:15 Assessment/Plan VTE Prophylaxis VTE Prophylaxis Intervention: other Lines/Catheters IV Catheter Type (from Nrs): Saline Lock Assessment/Plan Chief Complaint/Hosp Course IMPRESSION: 1. Uncontrolled hypertension. 2. Hyperkalemia. 3. End-stage renal disease. 4. Hypertension. 5. History of cardiomyopathy. 6. History of atherosclerotic heart disease. 7. History of dyslipidemia. 8. History of congestive heart failure. 9. History of herpes zoster. 10. History of anxiety. 11. History of depression. plan hd bp meds Problems: Subjective 24 Hr Interval Summary Subjective hx not possible: other (s/p hd bp better) Exam/Review of Systems Vital Signs Vitals Vital Signs Date Time Temp Pulse Resp B/P Pulse Ox O2 Delivery O2 Flow Rate FiO2 07/21/17 16:42 98.2 73 21 127/61 97 07/21/17 13:20 21 07/20/17 22:03 Room Air Intake and Output 07/20/17 07/20/17 07/21/17 15:00 23:00 07:00 Intake Total 800 ml Output Total 3400 ml Balance -2600 ml Exam Neck: supple Respiratory: clear to auscultation Cardiovascular: regular rate and rhythm Gastrointestinal: soft Musculoskeletal: nl extremities to inspection Extremities: normal pulses 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 Results Result Diagram: 07/20/17 1136 07/21/17 0824 Results 24 hrs Laboratory Tests Test 07/20/17 22:29 07/21/17 08:24 Creatine Kinase 23 Creatine Kinase Index 5.6 Creatinine Kinase MB (Mass) 1.28 Troponin I 0.126 *H Sodium Level 140 Potassium Level 3.9 Chloride Level 102 Carbon Dioxide Level 29 Anion Gap 13 # Blood Urea Nitrogen 23 #H Creatinine 3.84 #H Glucose Level 115 Calcium Level 9.9 Total Bilirubin 0.2 Direct Bilirubin 0.00 Indirect Bilirubin 0.2 Aspartate Amino Transf (AST/SGOT) 67 H Alanine Aminotransferase (ALT/SGPT) 63 Alkaline Phosphatase 399 H Total Protein 9.2 H Albumin 4.1 Globulin 5.10 H Albumin/Globulin Ratio 0.80 Medications Medications Current Medications Diphenhydramine HCl (Benadryl) 25 mg Q6H PRN PO ITCHING; Start 07/20/17 at 16: 00 Hydromorphone HCl (Dilaudid) 0.5 mg Q4H PRN IV PAIN Last administered on 17:36; Admin Dose 0.5 MG; Start 07/20/17 at 16:00 Hydralazine HCl (Apresoline) 10 mg Q6H PRN IV SBP >170 Last administered on 15:55; Admin Dose 10 MG; Start 07/20/17 at 16:00 Amlodipine Besylate (Norvasc) 5 mg BID PO Last administered on 07/20/17 22:00 ; Admin Dose 5 MG; Start 07/20/17 at 21:00 Aspirin (Aspirin) 81 mg DAILY PO Last administered on 07/21/17 09:39; Admin Dose 81 MG; Start 07/21/17 at 09:00 Atorvastatin Calcium (Lipitor) 20 mg QHS PO Last administered on 07/20/17 21: 54; Admin Dose 20 MG; Start 07/20/17 at 21:00 Bisacodyl (Dulcolax) 5 mg DAILY PRN PO CONSTIPATION; Start 07/20/17 at 18:00 Carvedilol (Coreg) 25 mg BID PO Last administered on 07/20/17 21:54; Admin Dose 25 MG; Start 07/20/17 at 21:00 Cinacalcet (Sensipar) 60 mg DAILY PO Last administered on 07/21/17 09:39; Admin Dose 60 MG; Start 07/21/17 at 09:00 Diphenhydramine HCl (Benadryl) 50 mg Q12 PRN PO ITCHING; Start 07/20/17 at 18: 00 Doxazosin Mesylate (Cardura) 2 mg HS PO Last administered on 07/20/17 22:00; Admin Dose 2 MG; Start 07/20/17 at 21:00 Folic Acid (Folic Acid) 1 mg DAILY PO Last administered on 07/21/17 09:39; Admin Dose 1 MG; Start 07/21/17 at 09:00 Hydralazine HCl (Apresoline) 100 mg Q8 PO Last administered on 07/21/17 14:43 ; Admin Dose 100 MG; Start 07/20/17 at 22:00 Acetaminophen/ Hydrocodone Bitart ([place] (5/325)) 1 tab Q6 PRN PO pain; Start 07/20/17 at 18:00 Lanthanum Carbonate (Fosrenol) 500 mg TID PO Last administered on 07/21/17 14: 43; Admin Dose 500 MG; Start 07/20/17 at 21:00 Losartan Potassium (Cozaar) 50 mg BID PO Last administered on 07/20/17 22:00; Admin Dose 50 MG; Start 07/20/17 at 21:00 Ondansetron HCl (Zofran Odt) 4 mg Q6H PRN ODT NAUSEA AND/OR VOMITING Last administered on 07/21/17 16:22; Admin Dose 4 MG; Start 07/20/17 at 18:00 Pantoprazole (Protonix Tab) 40 mg DAILY PO Last administered on 07/21/17 09:39 ; Admin Dose 40 MG; Start 07/21/17 at 09:00 Diphenhydramine HCl (Benadryl) 25 mg Q6H PRN IV itching Last administered on 18:41; Admin Dose 25 MG; Start 07/20/17 at 18:30 Hydrocodone Bit/ Homatropine Methylb (Hycodan Liquid) 5 ml BID PRN PO cough; Start 07/20/17 at 22:00 Zolpidem Tartrate (Ambien) 5 mg HS PRN PO INSOMNIA Last administered on 01:26; Admin Dose 5 MG; Start 07/21/17 at 00:00 Hydralazine HCl (Apresoline) 10 mg Q4H PRN IV SBP>170; Start 07/21/17 at 14:00 REMI SIMPSON MD Jul 21, 2017 19:16
[2017-07-21 19:40] LABS: CK-MB 1.05 ng/ml (0.0-2.4)
[2017-07-21 19:43] LABS: TROPONIN-I 0.221 ng/ml (0.00-0.12)
[2017-07-21] MEDS: ATORVASTATIN 20 MG TAB PO SCH (21:49)
[2017-07-21] MEDS: DOXAZOSIN 2 MG TAB PO SCH (21:50)
[2017-07-22] VITALS (12 sets, daily range): BP systolic 105–175; BP diastolic 63–98; PULSE 80–126; RESP 17–20
[2017-07-22] MEDS: DIPHENHYDRAMINE 50 MG INJ IV PRN ×3 (00:19→20:22)
[2017-07-22] MEDS: ALBUTEROL/IPRATROPIUM (NEB) 3 ML AMP HHN SCH ×4 (02:00→19:38)
[2017-07-22 02:23] LABS: CK-MB 0.93 ng/ml (0.0-2.4)
[2017-07-22 02:32] LABS: TROPONIN-I 0.18 ng/ml (0.00-0.12)
[2017-07-22] MEDS: HYDROmorphONE 0.5 MG/0.5 ML SYG IV PRN ×3 (05:24→18:54)
[2017-07-22 08:43] LABS: CHOL/HDL RATIO 3.3 RATIO
[2017-07-22] MEDS: CINACALCET 30 MG TAB PO SCH (08:53)
[2017-07-22] MEDS: PANTOPRAZOLE (EC) 40 MG TAB PO SCH (08:53)
[2017-07-22] MEDS: LANTHANUM 500 MG CHEW PO SCH ×3 (08:53→20:21)
[2017-07-22] MEDS: SEVELAMER CARBONATE 0.8 GM PKT PO SCH ×3 (08:53→17:38)
[2017-07-22] MEDS: FOLIC ACID 1 MG TAB PO SCH (08:53)
[2017-07-22] MEDS: ASPIRIN 81 MG TAB PO SCH (08:53)
[2017-07-22] MEDS: AMLODIPINE 5 MG TAB PO SCH ×2 (08:55→20:21)
[2017-07-22] MEDS: LOSARTAN 50 MG TAB PO SCH ×2 (08:55→20:20)
[2017-07-22 08:56] LABS: CK-MB 0.94 ng/ml (0.0-2.4)
[2017-07-22 08:59] LABS: TROPONIN-I 0.174 ng/ml (0.00-0.12)
--- NOTE | 2017-07-22 13:03 | RADRPT ---
Vent Rate: 84 bpm RR Interval: [address] Interval: 144 msec QRS Duration: 90 msec QT Interval: 410 msec QTC Interval: 484 msec P-R-T [place]: 51 - -41 - 137 degrees Normal sinus rhythm Possible Left atrial enlargement Left axis deviation Left ventricular hypertrophy T wave abnormality, consider lateral ischemia Prolonged QT Abnormal ECG Electronically Signed By: Rigo Lorenz [id number]
--- NOTE | 2017-07-22 18:35 | CONS ---
Date/Time of Note Date/Time of Note DATE: 07/22/17 TIME: 18:29 Assessment/Plan Assessment/Plan Chief Complaint/Hosp Course IMPRESSION: 1. Positive troponin, significance in the setting of renal failure and known cardiomyopathy, likely a marker of chronic cardiomyopathy in the setting of decompensated congestive heart failure and uncontrolled HTN.-now downtrending. NO chest pain-No sig ischemia by lexiscan 04/2017 2. Congestive heart failure, systolic, acute on chronic. Last EF 40% 3. Hypertension-improved control 4. End-stage renal disease on hemodialysis. 5. Hyperkalemia, now improved. 6. Anemia. 7. Dyslipidemia. Recc: -Tele -Continue asa -Continue Hydralazine/norvasc/coreg/losartan/cardura with currently well controlled BP. -HD for volume removal Problems: Consultation Date/Type/Reason Admit Date/Time Jul 22, 2017 at 12:02 Initial Consult Date 07/22/2017 Type of Consultation: cardiology Reason for Consultation positive troponin Referring Provider: REMI SIMPSON Exam/Review of Systems Vital Signs Vitals Vital Signs Date Time Temp Pulse Resp B/P Pulse Ox O2 Delivery O2 Flow Rate FiO2 07/22/17 16:15 97 07/22/17 15:16 98.2 18 137/72 99 07/22/17 13:21 21 07/20/17 22:03 Room Air Intake and Output 07/21/17 07/21/17 07/22/17 15:00 23:00 07:00 Intake Total 500 ml 800 ml 600 ml Output Total 2500 ml Balance -2000 ml 800 ml 600 ml Exam Review of Systems: CONSTITUTIONAL: No fevers, chills. PULMONARY: No sob CARDIOVASCULAR: No chest pain/palpitations GASTROINTESTINAL: No nausea/vomiting. GENITOURINARY: No hematuria/dysuria. MUSCULOSKELETAL: No myagias/arthalgias. PSYCHIATRIC: The patient denies depression. NEUROLOGIC: No weakness Constitutional: alert, oriented Psych: no complaints Head: normocephalic ENMT: mucosa pink and moist Neck: supple Respiratory: diminished breath sounds Cardiovascular: regular rate and rhythm Gastrointestinal: non-tender, soft Musculoskeletal: muscle tone Extremities: edema (none) Neurological: other (No focal deficits) Results Result Diagram: 07/20/17 1136 07/21/17 0824 Results 24 hrs Laboratory Tests Test 07/21/17 18:36 07/22/17 01:15 07/22/17 07:32 Creatine Kinase 26 27 25 Creatine Kinase Index 4.0 3.4 3.8 Creatinine Kinase MB (Mass) 1.05 0.93 0.94 Troponin I 0.221 *H 0.180 *H 0.174 *H Triglycerides Level 123 Cholesterol Level 250 H LDL Cholesterol, Calculated 151 HDL Cholesterol 74 Cholesterol/HDL Ratio 3.3 Medications Medications Current Medications Diphenhydramine HCl (Benadryl) 25 mg Q6H PRN PO ITCHING; Start 07/20/17 at 16: 00 Hydromorphone HCl (Dilaudid) 0.5 mg Q4H PRN IV PAIN Last administered on 13:42; Admin Dose 0.5 MG; Start 07/20/17 at 16:00 Hydralazine HCl (Apresoline) 10 mg Q6H PRN IV SBP >170 Last administered on 15:55; Admin Dose 10 MG; Start 07/20/17 at 16:00 Amlodipine Besylate (Norvasc) 5 mg BID PO Last administered on 07/21/17 21:51 ; Admin Dose 5 MG; Start 07/20/17 at 21:00 Aspirin (Aspirin) 81 mg DAILY PO Last administered on 07/22/17 08:53; Admin Dose 81 MG; Start 07/21/17 at 09:00 Atorvastatin Calcium (Lipitor) 20 mg QHS PO Last administered on 07/21/17 21: 49; Admin Dose 20 MG; Start 07/20/17 at 21:00 Bisacodyl (Dulcolax) 5 mg DAILY PRN PO CONSTIPATION; Start 07/20/17 at 18:00 Carvedilol (Coreg) 25 mg BID PO Last administered on 07/21/17 21:50; Admin Dose 25 MG; Start 07/20/17 at 21:00 Cinacalcet (Sensipar) 60 mg DAILY PO Last administered on 07/22/17 08:53; Admin Dose 60 MG; Start 07/21/17 at 09:00 Diphenhydramine HCl (Benadryl) 50 mg Q12 PRN PO ITCHING; Start 07/20/17 at 18: 00 Doxazosin Mesylate (Cardura) 2 mg HS PO Last administered on 07/21/17 21:50; Admin Dose 2 MG; Start 07/20/17 at 21:00 Folic Acid (Folic Acid) 1 mg DAILY PO Last administered on 07/22/17 08:53; Admin Dose 1 MG; Start 07/21/17 at 09:00 Hydralazine HCl (Apresoline) 100 mg Q8 PO Last administered on 07/22/17 14:46 ; Admin Dose 100 MG; Start 07/20/17 at 22:00 Acetaminophen/ Hydrocodone Bitart ([place] (5/325)) 1 tab Q6 PRN PO pain; Start 07/20/17 at 18:00 Lanthanum Carbonate (Fosrenol) 500 mg TID PO Last administered on 07/22/17 12: 27; Admin Dose 500 MG; Start 07/20/17 at 21:00 Losartan Potassium (Cozaar) 50 mg BID PO Last administered on 07/21/17 21:51; Admin Dose 50 MG; Start 07/20/17 at 21:00 Ondansetron HCl (Zofran Odt) 4 mg Q6H PRN ODT NAUSEA AND/OR VOMITING Last administered on 07/21/17 16:22; Admin Dose 4 MG; Start 07/20/17 at 18:00 Pantoprazole (Protonix Tab) 40 mg DAILY PO Last administered on 07/22/17 08:53 ; Admin Dose 40 MG; Start 07/21/17 at 09:00 Diphenhydramine HCl (Benadryl) 25 mg Q6H PRN IV itching Last administered on 11:09; Admin Dose 25 MG; Start 07/20/17 at 18:30 Hydrocodone Bit/ Homatropine Methylb (Hycodan Liquid) 5 ml BID PRN PO cough; Start 07/20/17 at 22:00 Zolpidem Tartrate (Ambien) 5 mg HS PRN PO INSOMNIA Last administered on 22:21; Admin Dose 5 MG; Start 07/21/17 at 00:00 Hydralazine HCl (Apresoline) 10 mg Q4H PRN IV SBP>170; Start 07/21/17 at 14:00 DEONNA DENT 9, 2017 18:35
--- NOTE | 2017-07-22 19:08 | PN ---
Date/Time of Note Date/Time of Note DATE: 07/22/17 TIME: 19:07 Assessment/Plan VTE Prophylaxis VTE Prophylaxis Intervention: other Lines/Catheters IV Catheter Type (from Nrsg): Saline Lock Assessment/Plan Chief Complaint/Hosp Course IMPRESSION: 1. Uncontrolled hypertension. 2. Hyperkalemia. 3. End-stage renal disease. 4. Hypertension. 5. History of cardiomyopathy. 6. History of atherosclerotic heart disease. 7. History of dyslipidemia. 8. History of congestive heart failure. 9. History of herpes zoster. 10. History of anxiety. 11. History of depression. plan hd AM bp meds FLUID RES PER DR DENT Problems: Subjective 24 Hr Interval Summary Subjective hx not possible: other (SOB BETTER) Gastrointestinal: no complaints Genitourinary: no complaints Exam/Review of Systems Vital Signs Vitals Vital Signs Date Time Temp Pulse Resp B/P Pulse Ox O2 Delivery O2 Flow Rate FiO2 07/22/17 16:15 97 07/22/17 15:16 98.2 18 137/72 99 07/22/17 13:21 21 07/20/17 22:03 Room Air Intake and Output 07/21/17 07/21/17 07/22/17 15:00 23:00 07:00 Intake Total 500 ml 800 ml 600 ml Output Total 2500 ml Balance -2000 ml 800 ml 600 ml Exam Respiratory: clear to auscultation Cardiovascular: regular rate and rhythm Gastrointestinal: bowel sounds (+), soft Extremities: edema (+) Results Result Diagram: 07/20/17 1136 07/21/17 0824 Results 24 hrs Laboratory Tests Test 07/22/17 01:15 07/22/17 07:32 Creatine Kinase 27 25 Creatine Kinase Index 3.4 3.8 Creatinine Kinase MB (Mass) 0.93 0.94 Troponin I 0.180 *H 0.174 *H Triglycerides Level 123 Cholesterol Level 250 H LDL Cholesterol, Calculated 151 HDL Cholesterol 74 Cholesterol/HDL Ratio 3.3 Medications Medications Current Medications Diphenhydramine HCl (Benadryl) 25 mg Q6H PRN PO ITCHING; Start 07/20/17 at 16: 00 Hydromorphone HCl (Dilaudid) 0.5 mg Q4H PRN IV PAIN Last administered on t 18:54; Admin Dose 0.5 MG; Start 07/20/17 at 16:00 Hydralazine HCl (Apresoline) 10 mg Q6H PRN IV SBP >170 Last administered on 15:55; Admin Dose 10 MG; Start 07/20/17 at 16:00 Amlodipine Besylate (Norvasc) 5 mg BID PO Last administered on 07/21/17 21:51 ; Admin Dose 5 MG; Start 07/20/17 at 21:00 Aspirin (Aspirin) 81 mg DAILY PO Last administered on 07/22/17 08:53; Admin Dose 81 MG; Start 07/21/17 at 09:00 Atorvastatin Calcium (Lipitor) 20 mg QHS PO Last administered on 07/21/17 21: 49; Admin Dose 20 MG; Start 07/20/17 at 21:00 Bisacodyl (Dulcolax) 5 mg DAILY PRN PO CONSTIPATION; Start 07/20/17 at 18:00 Carvedilol (Coreg) 25 mg BID PO Last administered on 07/21/17 21:50; Admin Dose 25 MG; Start 07/20/17 at 21:00 Cinacalcet (Sensipar) 60 mg DAILY PO Last administered on 07/22/17 08:53; Admin Dose 60 MG; Start 07/21/17 at 09:00 Diphenhydramine HCl (Benadryl) 50 mg Q12 PRN PO ITCHING; Start 07/20/17 at 18: 00 Doxazosin Mesylate (Cardura) 2 mg HS PO Last administered on 07/21/17 21:50; Admin Dose 2 MG; Start 07/20/17 at 21:00 Folic Acid (Folic Acid) 1 mg DAILY PO Last administered on 07/22/17 08:53; Admin Dose 1 MG; Start 07/21/17 at 09:00 Hydralazine HCl (Apresoline) 100 mg Q8 PO Last administered on 07/22/17 14:46 ; Admin Dose 100 MG; Start 07/20/17 at 22:00 Acetaminophen/ Hydrocodone Bitart ([place] (5/325)) 1 tab Q6 PRN PO pain; Start 07/20/17 at 18:00 Lanthanum Carbonate (Fosrenol) 500 mg TID PO Last administered on 07/22/17 12: 27; Admin Dose 500 MG; Start 07/20/17 at 21:00 Losartan Potassium (Cozaar) 50 mg BID PO Last administered on 07/21/17 21:51; Admin Dose 50 MG; Start 07/20/17 at 21:00 Ondansetron HCl (Zofran Odt) 4 mg Q6H PRN ODT NAUSEA AND/OR VOMITING Last administered on 07/21/17 16:22; Admin Dose 4 MG; Start 07/20/17 at 18:00 Pantoprazole (Protonix Tab) 40 mg DAILY PO Last administered on 07/22/17 08:53 ; Admin Dose 40 MG; Start 07/21/17 at 09:00 Diphenhydramine HCl (Benadryl) 25 mg Q6H PRN IV itching Last administered on 11:09; Admin Dose 25 MG; Start 07/20/17 at 18:30 Hydrocodone Bit/ Homatropine Methylb (Hycodan Liquid) 5 ml BID PRN PO cough; Start 07/20/17 at 22:00 Zolpidem Tartrate (Ambien) 5 mg HS PRN PO INSOMNIA Last administered on 22:21; Admin Dose 5 MG; Start 07/21/17 at 00:00 Hydralazine HCl (Apresoline) 10 mg Q4H PRN IV SBP>170; Start 07/21/17 at 14:00 REMI SIMPSON MD Jul 22, 2017 19:08
[2017-07-22] MEDS: ATORVASTATIN 20 MG TAB PO SCH (20:19)
[2017-07-22] MEDS: DOXAZOSIN 2 MG TAB PO SCH (20:20)
[2017-07-22] MEDS: ONDANSETRON (ODT) 4 MG TAB ODT PRN (20:27)
[2017-07-23] VITALS (13 sets, daily range): BP systolic 109–187; BP diastolic 55–87; PULSE 75–92; RESP 18–20
[2017-07-23] MEDS: hydrALAzine 20 MG INJ IV PRN (00:16)
[2017-07-23] MEDS: ALBUTEROL/IPRATROPIUM (NEB) 3 ML AMP HHN SCH ×2 (02:00→08:00)
[2017-07-23] MEDS: HYDROmorphONE 0.5 MG/0.5 ML SYG IV PRN ×2 (03:46→07:44)
[2017-07-23] MEDS: DIPHENHYDRAMINE 50 MG INJ IV PRN (04:40)
[2017-07-23] MEDS: SEVELAMER CARBONATE 0.8 GM PKT PO SCH (07:55)
[2017-07-23] MEDS: ASPIRIN 81 MG TAB PO SCH (08:16)
[2017-07-23] MEDS: FOLIC ACID 1 MG TAB PO SCH (08:16)
[2017-07-23] MEDS: LANTHANUM 500 MG CHEW PO SCH (08:16)
[2017-07-23] MEDS: LOSARTAN 50 MG TAB PO SCH (08:16)
[2017-07-23] MEDS: PANTOPRAZOLE (EC) 40 MG TAB PO SCH (08:17)
[2017-07-23] MEDS: CINACALCET 30 MG TAB PO SCH (08:17)
[2017-07-23] MEDS: AMLODIPINE 5 MG TAB PO SCH (08:17)
--- NOTE | 2017-07-24 17:20 | QN ---
Documentation Comment [id number] REMI SIMPSON MD Jul 24, 2017 17:20
--- NOTE | 2017-07-27 05:53 | DS ---
DATE OF ADMISSION: 07/22/2017 DATE OF DISCHARGE: 07/23/2017 HOSPITAL COURSE: Patient was admitted to [facility] with history of ESRD, hypertension, CHF, AICD device placement, presented with uncontrolled hypertension, shortness of breath, underwent hemodialysis and received Kayexalate for hyperkalemia. The patient also required pain medicine and medication. Patient was seen by Dr. Spencer in consultation for positive troponin and patient after receiving dialysis decided to leave the hospital against medical advice. At the time of the discharge, diagnoses include hyperkalemia, ESRD, uncontrolled hypertension, history of congestive heart failure. The patient has positive troponin, troponin leak, history of AICD device placement. The patient left the hospital against medical advice. Dictated By: REMI EDEN/LUAN Conf#: [id number] DID#: [id number]
== END 2017-07-23 09:20 | disposition left against medical advice (07) | DRG 640 ==
LOC: E/R 10:10 → MS3 12:57 → TEL 23:59 → OBSVTOIN 07-22 12:02
PROVIDERS: ADMIT Internal Medicine Nephrology; ATTEND Internal Medicine Nephrology
DX: E87.5 Hyperkalemia (principal); N18.6 End stage renal disease; I50.23 Acute on chronic systolic (congestive) heart failure; I13.2 Hypertensive heart and chronic kidney disease with heart failure and with stage 5 chronic kidney disease, or end stage renal disease; D64.9 Anemia, unspecified; E78.5 Hyperlipidemia, unspecified; Z95.810 Presence of automatic (implantable) cardiac defibrillator; I25.10 Atherosclerotic heart disease of native coronary artery without angina pectoris; F41.9 Anxiety disorder, unspecified; F32.9 Major depressive disorder, single episode, unspecified
CPT/HCPCS: 36415; 71010; 80048; 80053; 80061; 82550; 82553; 84484; 85025; 90935; 93005; 94640; 94664; 96374; 96375; G0378; J0360; J1170; J1200; J2270; J2405

== ENCOUNTER 2017-10-18 15:50 | Emergency (ER) | END 2017-10-19 03:19 | disposition left against medical advice (07) ==

== ENCOUNTER 2017-11-09 15:53 | Emergency (ER) | END 2017-11-09 23:21 | disposition home or self-care (01) ==

== ENCOUNTER 2017-11-18 18:13 | Inpatient (IN) | END 2017-11-24 13:44 | disposition home or self-care (01) | DRG 871 ==

== ENCOUNTER 2018-03-08 23:09 | Inpatient (IN) | END 2018-03-14 18:47 | disposition home or self-care (01) | DRG 193 ==

== ENCOUNTER 2018-04-05 18:08 | Emergency (ER) | END 2018-04-06 | disposition home or self-care (01) ==

== ENCOUNTER 2018-04-10 16:22 | Emergency (ER) | END 2018-04-11 00:12 | disposition home or self-care (01) ==

== ENCOUNTER 2018-08-12 12:02 | Emergency (ER) | END 2018-08-12 16:41 | disposition home or self-care (01) ==

== ENCOUNTER 2018-08-25 12:08 | Emergency (ER) | END 2018-08-25 19:33 | disposition home or self-care (01) ==

== ENCOUNTER 2019-04-12 09:45 | Emergency (ER) | payer MEDICARE, OTHER ==
[~2019-04-12] VITALS: Ht 160 cm; Wt 70.0 kg
[~2019-04-12 09:45] MED LIST changes: -ALBU2.5V3 HHN; -AMLO5TAB4 PO; -ASPI81TA3 PO; -ATOR20TA38 PO; +BENZ-6 PO; -BISA5TAB6 PO; +CALC667C PO; +CARV25TA79 PO; -CARV25TA97 PO; -CINA60TA PO; -DOXA2TAB61 PO; +FLUT16SP17 NASAL; -FOLI-49 PO; -FOSR500 PO; +GABA100C14 PO; +HYDR-4011 PO; -HYDR-906 PO; +HYDR2TAB36 PO; -Ipratropium 0.02% (Neb) HHN; +LINA145C PO; +LOSA50TA14 PO; -LOSA50TA2 PO; +MINO10TA16 PO; +NAPR-985 PO; +NIFE60TA18 PO; -NIT4 SL; +OLOP2.5D BOTH EYES; -ONDA4TAB14 PO; +ONDA4TAB8 PO; +RANI150T35 PO; -SEVE800T7 PO; +SVL800C PO; -UDATA PO; +ZOLP5TAB7 PO
[2019-04-12 09:52] VITALS: BP 110/64; PULSE 82; RESP 20; Ht 160 cm; Wt 70.0 kg
--- NOTE | 2019-04-20 09:12 | ERD ---
ER Documentation Chief Complaint Chief Complaint right leg pain/injury HPI 48-year-old female presenting with pain to her right leg. She denies any recent injury but has had pain for about a month it continues. Pain is worse with movement. She denies any fevers or swelling. Denies other medical problems. NKDA. Surgical history denies. Social history denies ROS All systems reviewed and are negative except as per history of present illness. Medications Home Meds Active Scripts Naproxen* (Naprosyn*) 500 Mg Tablet, 500 MG PO BID PRN for PAIN AND/OR INFLAMMATION, #30 TAB Prov:KALYN STEPHENS PA-C 04/12/19 Ranitidine Hcl* (Zantac*) 150 Mg Tablet, 150 MG PO BID PRN for EPIGASTRIC PAIN, #30 TAB Prov:CARRIE BORRERO DO 08/25/18 Ondansetron Hcl* (Zofran*) 4 Mg Tablet, 4 MG PO Q8H PRN for NAUSEA AND/OR VOMITING, #12 TAB Prov:CARRIE BORRERO DO 08/25/18 Hydrocodone/Acetaminophen ([place] 5-325 Tablet) 1 Each Tablet, 1 TAB PO Q6H PRN for PAIN, #10 TAB Prov:CARRIE BORRERO DO 08/25/18 Benzonatate* (Tessalon Perle*) 100 Mg Capsule, 100 MG PO Q8H PRN for COUGH, #30 CAP Prov:STEPHANIE CASTILLO MD 08/12/18 Reported Medications Hydromorphone Hcl* (Dilaudid*) 2 Mg Tablet, 2 MG PO NEEDED PRN for PAIN, TAB 08/12/18 Nifedipine* (Nifedipine ER*) 60 Mg Tablet.sa, 60 MG PO DAILY, TAB.SA 08/12/18 Minoxidil* (Lonitin*) 10 Mg Tab, 10 MG PO DAILY, TAB 08/12/18 Gabapentin* (Gabapentin*) 100 Mg Capsule, 100 MG PO TID, #90 CAP 08/12/18 Calcium Acetate* (Calcium Acetate*) 667 Mg Capsule, 1334 MG PO WITH MEALS, #60 CAP 08/12/18 Linaclotide (LINZESS) 145 Mcg Capsule, 145 MCG PO DAILY, #30 CAP 08/12/18 Olopatadine* (Pataday*) 0.2% - 2.5 Ml Drops, 1 DROP BOTH EYES DAILY, EA 08/12/18 Hydrocodone/Acetaminophen ([place] 5-325 Tablet) 1 Each Tablet, 1 EACH PO DAILY, TAB 08/12/18 Fluticasone Propionate* (Fluticasone Propionate* Nasal) 50 Mcg/[place] - 16 Gm [place].susp, 1 SPRAY NASAL DAILY, #1 BOTTLE TO EACH NOSTRIL 08/12/18 Zolpidem Tartrate* (Zolpidem Tartrate*) 5 Mg Tablet, 5 MG PO QHS PRN for INSOM WARD, #30 TAB 04/05/18 Sevelamer Hcl* (Renagel*) 800 Mg Tablet, 3200 MG PO WITH MEALS, TAB 03/08/18 Pantoprazole* (Pantoprazole*) 40 Mg Tablet.dr, 40 MG PO DAILY, TAB 03/08/18 Losartan Potassium* (Losartan Potassium*) 50 Mg Tablet, 50 MG PO BID, TAB 03/08/18 Carvedilol* (Carvedilol*) 25 Mg Tablet, 25 MG PO BID, #60 TAB 03/08/18 Hydralazine Hcl* (Hydralazine Hcl*) 50 Mg Tab, 50 MG PO DAILY PRN for HTN, #60 TAB 03/08/18 Diphenhydramine Hcl* (Benadryl*) 50 Mg Cap, 50 MG PO Q12 PRN for ITCHING, CAP 10/06/16 Allergies Allergies: Coded Allergies: valacyclovir (Verified Allergy, Mild, 08/25/18) per pt she has nightmares and hallucinations vancomycin (Verified Allergy, Unknown, 04/12/19) PMhx/Soc History of Surgery: Yes (Gallstone removal (), Fistula Sx ('14), Spleen removal) Anesthesia Reaction: No Hx Neurological Disorder: Yes (TIA ('17)) Hx Respiratory Disorders: Yes (Asthma) Hx Cardiac Disorders: Yes (HTN, Pacemaker ('16), CHF, EF: 25%) Hx Psychiatric Problems: Yes (Anxiety) Hx Miscellaneous Medical Probl: Yes (Lupus ('), Dialysis pt) Hx Alcohol Use: Yes (10 years ago) Hx Substance Use: No Hx Tobacco Use: No Smoking Status: Never smoker FmHx Family History: No diabetes, No coronary disease, No other Physical Exam Physical Exam GENERAL: The patient is well-appearing, well-nourished, in no acute distress HEENT: Atraumatic. Conjunctivae are pink. Pupils equal, round, and reactive to light. There is no scleral icterus. Tympanic membranes clear bilaterally. Oropharynx clear. CHEST: Clear to auscultation bilaterally. There are no rales, wheezes or rhonchi. HEART: Regular rate and rhythm. No murmurs, clicks, rubs or gallops. EXTREMITIES: TTP to upper thigh. Equal pulses bilaterally. There is no peripheral clubbing, cyanosis or edema. No focal swelling or erythema. Full range of motion. Grossly neurovascularly intact. NEUROLOGIC: Alert and oriented. Cranial nerves II through XII intact. Motor strength in all 4 extremities with 5 out of 5 strength. Sensation grossly intact. Normal speech and gait. SKIN: There is no apparent rash or petechiae. The skin is warm and dry. Procedures/MDM DIAGNOSTIC IMAGING REPORT Patient: AYNA GO : 1970 Age: 48 Sex: F MR #: [id number] DOS: 04/12/19 1016 Ordering MD: CONCEPCION STEPHENS PA-C Location: [facility] Room/Bed: PROCEDURE: US Lower extremity Venous. CLINICAL INDICATION: Right leg edema, pain TECHNIQUE: Multiple sonographic images of the right lower extremity deep venous system was obtained utilizing grayscale, color-flow, compressive sonography and doppler imaging with augmentation. The images were reviewed on a PACS workstation. COMPARISON: None. FINDINGS: There is normal compressibility and flow within the right common femoral, femoral, posterior tibial, peroneal and popliteal veins. RPTAT: AA IMPRESSION: No sonographic evidence for deep venous thrombosis. DIAGNOSTIC IMAGING REPORT Patient: ANYA GO : 1970 Age: 48 Sex: F MR #: [id number] DOS: 04/12/19 1016 Ordering MD: CONCEPCION STEPHENS PA-C Location: [facility] Room/Bed: PROCEDURE: XR Hip. CLINICAL INDICATION: pain TECHNIQUE: AP and frog lateral views of the right hip were performed. COMPARISON: None. FINDINGS: There is normal mineralization and alignment. No fracture or osseous lesion is identified. There are no significant degenerative changes in the hip. The soft tissues are unremarkable. RPTAT: AA IMPRESSION: Unremarkable right hip. MDM: 48-year-old female presenting with right leg pain. I have low suspicion for acute fracture dislocation. I have low suspicion for vascular insufficiency or injury. I have low suspicion for infectious process. I have low suspicion for nerve deficit. Patient likely has muscular skeletal strain that is recommended to rest and elevate the affected area. Patient is told symptoms change or worsen to return immediately to the ER. All questions answered at discharge Departure Diagnosis: Primary Impression: Pain of right leg Condition: Stable Patient Instructions: Muscle Strain, Extremity Referrals: REMI SIMPSON MD (PCP) Additional Instructions: FOLLOW UP WITH YOUR PRIMARY CARE PHYSICIAN TOMORROW.Return to this facility if you are not improving as expected. KALYN STEPHENS PA-C Apr 20, 2019 09:12
== END 2019-04-12 11:14 | disposition home or self-care (01) ==
LOC: FTE 09:45
DX: M79.604 Pain in right leg (principal); I11.0 Hypertensive heart disease with heart failure; I50.9 Heart failure, unspecified; J45.909 Unspecified asthma, uncomplicated; Z86.73 Personal history of transient ischemic attack (TIA), and cerebral infarction without residual deficits; Z99.2 Dependence on renal dialysis
CPT/HCPCS: 73502; 73510; 93971